=== PATIENT | male | born 1955 ===

== ENCOUNTER → 2020-06-01 08:58 | Outpatient (BNVA) | payer OTHER, SELFPAY | PROVIDERS: PCP Internal Medicine; Referring Provider Internal Medicine; Visit Provider Nurse Practitioner Family | DX: Z76.89 Persons encountering health services in other specified circumstances (principal) ==

== ENCOUNTER 2020-06-07 09:03 | Emergency (ER) | payer OTHER, SELFPAY ==
[2020-06-07 09:21] VITALS: BP 148/71; PULSE 60; RESP 22; TEMP 37.1; O2SAT 98; BMI 27.9
--- NOTE | 2020-06-07 09:42 | ED_ITS ---
HPI - Wound/Laceration General Chief Complaint: Wound/Laceration Stated Complaint: scab on arm,sob,dizzy Time Seen by Provider: 06/07/20 09:42 History of Present Illness HPI narrative: patient presents to ED for for left forearm wound with slight erythema around area. Patient does not recall any blunt trauma to the area. Patient denies any recent hiking. Patient denies any fever, chills, pain, pus discharge, foul odor, any recent hiking. Patient denies any insect bite. Patient has secondary complaint chronic shortness of breath and chronic dizziness as per triage nurse. Patient does states history of vertigo. Patient presently denies any shortness of breath or vertigo. Patient denies ever having Chest pain. Patient statess he said the symptoms because nurse asked him if he had any of those symptoms. Patient states they are are chronic and did not come to the ED for SOB and dizziness.. Extremity Location: left: forearm Related Data Previous Rx's Medication Instructions Recorded clindamycin HCl 300 mg PO Q8H #30 cap 06/07/20 Allergies Allergy/AdvReac Type Severity Reaction Status Date / Time Penicillins Allergy Mild RASH Unverified 05/13/20 17:33 ciprofloxacin [From Cipro] Allergy Unknown RASH Unverified 05/13/20 17:33 penicillin V Allergy Unknown Verified 04/20/20 00:00 Review of Systems Review of Systems: Yes all other systems are reviewed and are negative Constitutional: Constitutional: Reports no additional constitutional complaints Eyes: Eyes: Reports as per HPI and Reports no additional eye complaints ENT: Reports system reviewed and no additional complaints, except as documented and Reports as per HPI Cardiovascular: Cardiovascular: Reports as per HPI, Reports no additional cardiovascular complaints, Denies chest pain, Denies chest pain at rest, Denies chest pain with activity, Denies dyspnea, Denies dyspnea on exertion, Denies orthopnea and Denies paroxysmal nocturnal dyspnea Respiratory: Respiratory: Reports as per HPI, Reports no additional respirato ry complaints, Denies dyspnea and Denies dyspnea on exertion Gastrointestinal: Gastrointestinal: Reports as per HPI and Reports no additional gastrointestinal complaints Musculoskeletal: Musculoskeletal: Reports no additional musculoskeletal complaints, Reports as per HPI, Denies joint swelling, Denies limited range of motion and Denies loss of height Neurologic: Reports system reviewed and no additional complaints, except as documented and Reports as per HPI Psychiatric: Psychiatric: Reports no additional psychiatric complaints and Reports as per HPI FORMERLY [facility], [facility] Past Medical History Medical History (Updated 06/07/20 @ 11:13 by CAITY Marino) Arthritis COPD (chronic obstructive pulmonary disease) Coronary artery disease Diabetes mellitus, type 2 Dizziness Peripheral vascular disease Surgical History (Updated 06/07/20 @ 09:26 by Titus Odell) H/O coronary artery bypass surgery Social History Social History Alcohol intake: former Smoking Status: Light tobacco smoker Smoked in Last 30 Days: No Use of substances other than those prescribed or required for medical reasons: Unknown Advance Directives: No Advance Directives Information Provided: No Physical Exam Vital Signs: Vital Signs: Vital Signs Temp Pulse Resp BP Pulse Ox 06/07/20 11:52 66 18 06/07/20 09:21 98.8 F 60 22 H 148/71 H 98 Body Mass Index 27.9 Const: General: cooperative, healthy appearing, comfortable and no acute distress Orientation/consciousness: patient oriented x3 HENMT: Head: Yes normal to inspection and Yes No palpable skull fracture present Eyes: General: appearance normal, both eyes and all related structures Neck: Neck: Yes normal visual inspection, Yes full ROM, Yes no lymphadenopathy, Yes no meningeal signs, No positive Brudzinski's sign, No positive Kernig's sign and Yes no JVD Chest: Chest palpation & inspection: normal inspection of the chest and normal palpation of entire chest wall Resp: Effort & Inspection: normal respiratory effort, able to speak in complete sentences, normal respiratory pattern, no audible wheezes, no cough, no grunting, no paradoxical thoraco-abdom movements, no pursed lip breathing, no respiratory distress, no retractions and no use of accessory muscles Auscultation: clear to auscultation bilaterally Cardio: Jugular venous distension: no JVD Rate: regular rate Heart sounds: S1 normal heart sound present and S2 normal heart sound present GI: Inspection: Yes normal to inspection and No Kehr's sign positive Palpation (GI): not firm, nontender, no guarding and not rigid Percussion: Yes normal to percussion : General: No CVA tenderness and Yes no CVA tenderness Back/Spine/Pelvis: Back: no CVA tenderness, No CVA tenderness, No back tenderness and No Callahan-Polk sign present Skin: Other: Left forearm positive for small area of erythema surrounding wound that is dry and negative any active pus discharge or foul odor. Negative for any tenderness on palpation. Negative for any erythema migrans or bull's eye sign General skin exam: erythema Neuro: Other: negative for nystagmus General: patient oriented x3, gait normal, no meningeal signs and CN's II-XI intact bilaterally Cranial nerves: Yes CN's II-XII intact bilaterally Cognition (Neuro): normal cognition Extrem: Other: left forearm positive for small area of erythema around dry wound does negative for any pus discharge foul odor, erythema tenderess. Negative for red streaks to indicate lymphangitis. Negative any fluctuance mass to indicate abscess. General: Yes normal to inspection Psych: Appearance: grossly normal and well kempt Mental Status: mental status grossly normal Course Course Course Narrative: Patient presently denies any chest pain shortness of breath or dizziness. But because documented in chart by triage nurse and patient diabetic will have baseline EKG and labs including troponin. Patient also be sent for chest x-ray to rule out pneumonia. Presently history physical exam does not indicate PE. D-dimer not indicated. Vital signs are stable. Patient is not hypoxic. Patient denies any chest pain on inspiration. Patient is not tachy. Patient denies any recent surgery, trauma, or any oral estrogen use. Patient will have x-ray of forearm to make sure there is no osteomyelitis although very unlikely. Reevaluation(s) Reevaluation #1: Labs for patients came back normal. Troponin is negative. Chest x-ray is normal. Forearm x-ray negative for any osteomyelitis. Patient will be treated as slight wound infections, cellulitis. Time: 11:07 MDM - Wound/Laceration MDM Narrative Medical decision making narrative: Patient will be discharged with clindamycin due to allergic reaction to Keflex. Patient informed to follow-up with PCP. Patient not having cardiac or pulmonary event. no EKG changes Lab Data Result diagrams: 06/07/20 10:06 06/07/20 10:05 Labs: Lab Results 06/07/20 06/07/20 06/07/20 Range/Units 10:05 10:06 10:06 WBC 6.5 (4.8-10.8) X10*3/uL RBC 4.66 (4.60-5.80) X10*6/uL Hgb 15.0 (14.0-18.0) g/dl Hct 44.6 (42-52) % MCV 95.7 (80-98) fL MCH 32.2 (27.0-33.0) pg MCHC 33.6 (31.0-36.0) g/dl RDW 12.4 (11.0-16.0) % Plt Count 174 (160-400) X10*3/uL MPV 10.3 (9.4-12.4) fL Immature Gran % (Auto) 0.3 (0.0-0.4) % Neut % (Auto) 71.1 (45-73) % Lymph % (Auto) 18.1 L (20-40) % Rhea % (Auto) 8.2 (2-11) % Eos % (Auto) 2.0 (0-4) % Baso % (Auto) 0.3 (0-2) % Lymph # (Auto) 1.2 (1.2-4.9) X10*3/uL Rhea # (Auto) 0.5 (0.1-1.2) X10*3/uL Eos # (Auto) 0.1 (0.0-0.4) X10*3/uL Baso # (Auto) 0.0 (0.0-0.2) X10*3/uL Abs Immat Gran (auto) 0.02 (0.00-0.03) X10*3/uL Absolute Neuts (auto) 4.6 (2.0-8.3) X10*3/uL Absolute Nucleated RBC 0.000 (0.0-0.012) X10*3/uL Nucleated RBC % (auto) 0.0 (0.0-0.2) /100WBC PT 11.7 (10.8-13.0) SEC INR 1.0 (0.9-1.1) APTT 35.9 (24.1-38.0) SEC Sodium 140 (135-145) mmol/L Potassium 4.4 (3.3-5.1) mmol/l Chloride 106 (96-108) mmol/L Carbon Dioxide 25 (22-29) mmol/L Anion Gap 13 (12-20) BUN 17 H (9-16) mg/dL Creatinine 1.09 (0.5-1.4) mg/dL Estim Creat Clear Calc 66.5 Estimated GFR > 60 Random Glucose 160 H (60-115) mg/dL Calcium 9.2 (8.4-10.2) mg/dL Total Bilirubin 0.7 (0.0-1.0) mg/dL AST 26 (5-37) U/L ALT 24 (0-40) U/L Alkaline Phosphatase 111 (39-117) U/L Troponin I High Sens (<3.5-35.0) ng/L B-Natriuretic Peptide (<100) pg/mL Total Protein 6.9 (6.5-8.0) g/dL Albumin 4.5 (3.5-5.0) g/dL 06/07/20 Range/Units 10:06 WBC (4.8-10.8) X10*3/uL RBC (4.60-5.80) X10*6/uL Hgb (14.0-18.0) g/dl Hct (42-52) % MCV (80-98) fL MCH (27.0-33.0) pg MCHC (31.0-36.0) g/dl RDW (11.0-16.0) % Plt Count (160-400) X10*3/uL MPV (9.4-12.4) fL Immature Gran % (Auto) (0.0-0.4) % Neut % (Auto) (45-73) % Lymph % (Auto) (20-40) % Rhea % (Auto) (2-11) % Eos % (Auto) (0-4) % Baso % (Auto) (0-2) % Lymph # (Auto) (1.2-4.9) X10*3/uL Rhea # (Auto) (0.1-1.2) X10*3/uL Eos # (Auto) (0.0-0.4) X10*3/uL Baso # (Auto) (0.0-0.2) X10*3/uL Abs Immat Gran (auto) (0.00-0.03) X10*3/uL Absolute Neuts (auto) (2.0-8.3) X10*3/uL Absolute Nucleated RBC (0.0-0.012) X10*3/uL Nucleated RBC % (auto) (0.0-0.2) /100WBC PT (10.8-13.0) SEC INR (0.9-1.1) APTT (24.1-38.0) SEC Sodium (135-145) mmol/L Potassium (3.3-5.1) mmol/l Chloride (96-108) mmol/L Carbon Dioxide (22-29) mmol/L Anion Gap (12-20) BUN (9-16) mg/dL Creatinine (0.5-1.4) mg/dL Estim Creat Clear Calc Estimated GFR Random Glucose (60-115) mg/dL Calcium (8.4-10.2) mg/dL Total Bilirubin (0.0-1.0) mg/dL AST (5-37) U/L ALT (0-40) U/L Alkaline Phosphatase (39-117) U/L Troponin I High Sens < 3.5 (<3.5-35.0) ng/L B-Natriuretic Peptide 73 (<100) pg/mL Total Protein (6.5-8.0) g/dL Albumin (3.5-5.0) g/dL ECG Data Interpretation: Sinus bradycardia, ventricular rate 56, nonspecific T-wave abnormality, IA interval 154 Discharge Plan Discharge Clinical Impression: Wound cellulitis Patient Disposition: Home, Self-Care Instructions: Wound Infection (ED), Cellulitis (ED) Additional Instructions: return to the ED for any swelling of upper extremity,, development of red streaks, chest pain, shortness of breath, pus discharge, foul odor, pain, fever, chills, or any other concerning symptoms. Prescriptions: New clindamycin HCl 300 mg capsule 300 mg PO Q8H Qty: 30 RF: 0 Referrals: Susie Park MD [Primary Care Provider] - 2 days ( Left wound cellulitis. Negative for any osteomyelitis. Discharge with antibiotics) Interventions: ED Discharge Assessment Last Done: 06/07/20 11:45 Discharge Date/Time: 06/07/20 11:58 Print Language: Telugu
--- NOTE | 2020-06-07 09:45 | XR_ITS ---
EXAMINATION: XR CHEST CLINICAL INFORMATION: Chronic shortness of breath COMPARISON: Chest radiograph 04/23/2020 TECHNIQUE: Portable upright AP view of the chest was obtained. FINDINGS: The lungs are clear. The vascularity is normal. There is no airspace consolidation, vascular congestion, or effusion. Tapering at the cardiophrenic angles is similar to prior exam and consistent with areolar tissue. There are surgical clips and sternotomy wires again noted. The heart is normal in size. The hilar and mediastinal contours are unremarkable. No visible acute bony abnormality. IMPRESSION: No acute intrathoracic disease.
--- NOTE | 2020-06-07 09:45 | ECG_ITS ---
Test Reason : SOB Blood Pressure : / mmHG Vent. Rate : 056 BPM Atrial Rate : 056 BPM P-R Int : 154 ms QRS Dur : 092 ms QT Int : 452 ms P-R-T Axes : 072 039 059 degrees QTc Int : 436 ms Sinus bradycardia Nonspecific T wave abnormality Abnormal ECG When compared with ECG of 23-APR-2020 11:12, No significant change was found Referred By: Deric Soares Electronically Signed By:PAM BENEDICT MD
[2020-06-07 10:10] LABS: MANUAL DIFF FLAG NO
--- NOTE | 2020-06-07 10:13 | XR_ITS ---
EXAMINATION: XR FOREARM, LEFT CLINICAL INFORMATION: Wound, possible osteomyelitis. COMPARISON: None TECHNIQUE: AP and lateral views of the left forearm were obtained. FINDINGS: Bony mineralization is normal. There is no focal demineralization or periostitis or destructive process. There is no acute or healing fracture or dislocation. There is no gas seen tracking in the soft tissues. Some mild spurring is noted at the coronoid process and borderline spur olecranon. There is no joint narrowing or erosive change. IMPRESSION: 1. No focal bony destructive process. No periostitis. No gas tracking in soft tissues. 2. No fracture. Bony mineralization normal. No joint narrowing or erosive change.
[2020-06-07 10:15] LABS: Basophils Percent Auto 0.3 % (0-2); Eosinophils Absolute Auto 0.1 X10*3/uL (0.0-0.4); Hematocrit 44.6 % (42-52); Imm Gran Abs Auto 0.02 X10*3/uL (0.00-0.03); Imm Gran Pct Auto 0.3 % (0.0-0.4); Lymphocytes Absolute Auto 1.2 X10*3/uL (1.2-4.9); Lymphocytes Percent Auto 18.1 % (20-40); Mean Corpuscular HGB Conc 33.6 g/dl (31.0-36.0); Mean Corpuscular Hemoglobin 32.2 pg (27.0-33.0); Mean Corpuscular Volume 95.7 fL (80-98); Mean Platelet Volume 10.3 fL (9.4-12.4); Monocytes Absolute Auto 0.5 X10*3/uL (0.1-1.2); Monocytes Percent Auto 8.2 % (2-11); Neutrophils Absolute Auto 4.6 X10*3/uL (2.0-8.3); Neutrophils Percent Auto 71.1 % (45-73); Platelet Count 174 X10*3/uL (160-400); Red Blood Count 4.66 X10*6/uL (4.60-5.80); Red Cell Distribution Width 12.4 % (11.0-16.0); White Blood Count 6.5 X10*3/uL (4.8-10.8)
[2020-06-07 10:27] LABS: Prothrombin Time 11.7 SEC (10.8-13.0)
[2020-06-07 10:29] LABS: Partial Thromboplastin Time 35.9 SEC (24.1-38.0)
[2020-06-07 10:42] LABS: Alanine Aminotransferase 24 U/L (0-40); Albumin Level 4.5 g/dL (3.5-5.0); Alkaline Phosphatase 111 U/L (39-117); Anion Gap 13 (12-20); Aspartate Amino Transferase 26 U/L (5-37); Bilirubin Total 0.7 mg/dL (0.0-1.0); Blood Urea Nitrogen 17 mg/dL (9-16); Calcium 9.2 mg/dL (8.4-10.2); Carbon Dioxide 25 mmol/L (22-29); Chloride 106 mmol/L (96-108); Creatinine Clr Calc Pharmacy 66.5; Estimated Glomerular Filt Rate > 60; Glucose Random 160 mg/dL (60-115); Potassium 4.4 mmol/l (3.3-5.1); Sodium 140 mmol/L (135-145); Total Protein 6.9 g/dL (6.5-8.0)
[2020-06-07 10:45] LABS: B Type Natriuretic Peptide 73 pg/mL (<100); Troponin-I High Sensitivity < 3.5 ng/L (<3.5-35.0)
[2020-06-07 11:52] VITALS: PULSE 66; RESP 18
== END 2020-06-07 11:58 | disposition home or self-care (01) ==
PROVIDERS: Physician Assistant; Emergency Provider Emergency Medicine; PCP Internal Medicine
DX: L03.114 Cellulitis of left upper limb (principal); E11.9 Type 2 diabetes mellitus without complications; F17.219 Nicotine dependence, cigarettes, with unspecified nicotine-induced disorders
CPT/HCPCS: 36415; 71045; 73090; 80053; 83880; 84484; 85025; 85610; 85730; 93005; 99284

== ENCOUNTER → 2020-06-23 09:32 | Outpatient (BNVA) | payer OTHER, SELFPAY | PROVIDERS: PCP Internal Medicine; Referring Provider Internal Medicine; Visit Provider Nurse Practitioner Family | DX: I25.118 Atherosclerotic heart disease of native coronary artery with other forms of angina pectoris (principal); E78.5 Hyperlipidemia, unspecified; I10 Essential (primary) hypertension; Z95.1 Presence of aortocoronary bypass graft; Z95.5 Presence of coronary angioplasty implant and graft | CPT/HCPCS: 93005; 99212 ==

== ENCOUNTER 2020-09-21 15:00 | Emergency (ER) | payer OTHER, SELFPAY ==
[2020-09-21 15:08] VITALS: BP 110/68; PULSE 67; RESP 15; TEMP 36.8; O2SAT 96; BMI 28.8
--- NOTE | 2020-09-21 15:35 | ECG_ITS ---
Test Reason : CHEST PAIN Blood Pressure : / mmHG Vent. Rate : 066 BPM Atrial Rate : 066 BPM P-R Int : 152 ms QRS Dur : 094 ms QT Int : 402 ms P-R-T Axes : 050 004 -09 degrees QTc Int : 421 ms Normal sinus rhythm Inferior infarct , age undetermined Nonspecific T wave changes Abnormal ECG When compared with ECG of 07-JUN-2020 10:27, Inferior infarct is now Present Referred By: Chasidy Knutson Electronically Signed By:Johnson Dutton
--- NOTE | 2020-09-21 15:35 | CT_ITS ---
EXAMINATION: CT HEAD WITHOUT CONTRAST CLINICAL INFORMATION: Altered mental status. COMPARISON: April 23, 2020. TECHNIQUE: Contiguous helical images of the brain were obtained without IV contrast. Multiplanar reconstructions were performed. DLP: 656 mGy-cm. FINDINGS: There are no pathologic extra-axial fluid collections. The lateral, third, fourth ventricles are nondilated and concordant with the appearance of the sulci. There is no evidence for acute intraparenchymal hemorrhage or infarct. There is neither mass nor mass effect. There is no shift of midline structures. The paranasal sinuses and mastoid air cells are clear. There are no osseous lesions. CT/CT head/brain wo con IMPRESSION: No evidence for acute intracranial injury. Automated exposure control (Care Dose) Adjustment of the mA and/or kv according to patient size (this includes techniques or standardized protocols for targeted exams where dose is matched to indication / reason for exam; i.e. extremities or head).
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
--- NOTE | 2020-09-21 15:36 | XR_ITS ---
EXAMINATION: XR CHEST CLINICAL INFORMATION: Cough COMPARISON: 06/07/2020 TECHNIQUE: Frontal view of the chest was obtained. FINDINGS: Median sternotomy wires appear intact. Cardiac leads overlie the chest. The lungs are well expanded. Bronchial wall thickening noted. No dense consolidation. No edema or effusion. No pneumothorax. The cardiomediastinal silhouette is normal in size. XR/XR chest 1V IMPRESSION: No consolidation. Bronchial wall thickening can be seen with a small airways process such as asthma or atypical/viral infection.
--- NOTE | 2020-09-21 15:37 | ED_ITS ---
HPI - General Adult General Chief complaint: General Medical Stated complaint: CP,GILLESPIE,WEAKNESS Time Seen by Provider: 09/21/20 15:25 Source: EMS Mode of arrival: EMS History of Present Illness HPI narrative: 65-year-old male with a past medical history of angina, arthritis, COPD, CAD, DM, HLD, HTN, PVD, BIBA complaining of chest pain, worse pierre SOB, generalized fatigue/weakness, and dry since yesterday. History obtained from daughter Anushka at [phone], due to patient's acute AMS, per daughter patient was complaining of headache, recently diagnosed with migraines and started a new migraine medication, saw therapist today who recommended patient go to ED due to sx. Daughter states patient went home after appointment and then requested ambulance. Per daughter patient has drug abuse history but has been sober x3 years. Daughter believes patient took 2 Rx Klonopin before getting in ambulance, states is acting normally prior to EMS arrival. Onset (ago): day(s) Related Data Home Medications Medication Instructions Recorded Confirmed acarbose 50 mg tablet 50 mg PO BID tab 06/23/20 06/23/20 albuterol sulfate 90 mcg/actuation 2 puff INHALATION Q6H PRN 06/23/20 06/23/20 aerosol inhaler aspirin 81 mg tablet,delayed 81 mg PO DAILY 06/23/20 06/23/20 release atorvastatin 80 mg tablet 80 mg PO DAILY 06/23/20 06/23/20 chlorpromazine 100 mg tablet 100 mg PO BID tab 06/23/20 06/23/20 clonazepam 1 mg tablet 1 mg PO DAILY 06/23/20 06/23/20 ezetimibe 10 mg tablet 10 mg PO DAILY 06/23/20 06/23/20 fluticasone 250 mcg-salmeterol 50 1 inh INHALATION BID 06/23/20 06/23/20 mcg/dose blistr powdr for inhalation insulin glargine 100 unit/mL (3 10 unit SUBCUT QPM 06/23/20 06/23/20 mL) subcutaneous pen loratadine 10 mg tablet 10 mg PO DAILY 06/23/20 06/23/20 methocarbamol 500 mg tablet 750 mg PO .EVERY 4 HOURS tab 06/23/20 06/23/20 metoprolol tartrate 50 mg tablet 50 mg PO BID 06/23/20 06/23/20 multivitamin with minerals-folic tab PO 06/23/20 06/23/20 acid 0.4 mg tablet nicotine 21 mg/24 hr daily 1 patch TRANSDERMAL DAILY 06/23/20 06/23/20 transdermal patch pantoprazole 40 mg tablet,delayed 40 mg PO DAILY 06/23/20 06/23/20 release ranolazine 500 mg tablet,extended 500 mg PO BID 06/23/20 06/23/20 release,12 hr sennosides 8.6 mg tablet 8.6 mg PO BEDTIME 06/23/20 06/23/20 tamsulosin 0.4 mg capsule 0.4 mg PO DAILY 06/23/20 06/23/20 tiotropium bromide 18 mcg capsule 1 cap INHALATION DAILY 06/23/20 06/23/20 with inhalation device trifluoperazine 2 mg tablet 2 mg PO DAILY 06/23/20 06/23/20 Previous Rx's Medication Instructions Recorded clindamycin HCl 300 mg PO Q8H #30 cap 06/07/20 isosorbide mononitrate 120 mg 120 mg PO QAM #30 tab 08/23/20 tablet,extended release 24 hr ticagrelor 90 mg tablet 90 mg PO BID #60 tab 08/23/20 Allergies Allergy/AdvReac Type Severity Reaction Status Date / Time Penicillins Allergy Mild RASH Unverified 05/13/20 17:33 ciprofloxacin [From Cipro] Allergy Unknown RASH Unverified 05/13/20 17:33 penicillin V Allergy Unknown Verified 04/20/20 00:00 Review of Systems Review of Systems: Cardiovascular: + Chest Pain, +SOB Respiratory: +Cough Gastrointestinal: + Nausea Neuro: +Headache ROS limited due to patient's AMS Yes all other systems are reviewed and are negative [facility] Past Medical History Medical History (Updated 09/21/20 @ 16:41 by CAITY Fuentes) Angina of effort Arthritis COPD (chronic obstructive pulmonary disease) Coronary artery disease Diabetes mellitus, type 2 Dizziness HLD (hyperlipidemia) HTN (hypertension) Peripheral vascular disease Surgical History (Updated 06/23/20 @ 11:02 by HUNTER Christensen) H/O coronary artery bypass surgery S/P CABG x 3 (~09/2018) S/P cardiac cath (~08/2019) S/P cardiac cath (~04/2020) Stented coronary artery Social History Social History Alcohol intake: former Smoking Status: Current every day smoker Packs Per Day: 0.5 Use of substances other than those prescribed or required for medical reasons: No Advance Directives: No Advance Directives Information Provided: No Physical Exam Vital Signs: Vital Signs: Last Vital Signs Temp 98.3 F 09/21/20 15:53 Pulse 62 09/21/20 15:53 Resp 21 H 09/21/20 15:53 BP 106/62 09/21/20 15:53 Pulse Ox 97 09/21/20 15:53 Body Mass Index 28.8 Const: General: no acute distress Orientation/consciousness: oriented to person Limitations: no limitations HENMT: Other: + small abrasion noted to left cheek Head: Yes normal to inspection Ears: hearing grossly normal bilaterally General nose exam: Normal external nose present Face and sinus: Yes normal facial exam Mouth: mucous membranes dry Throat: Yes posterior oropharynx normal Eyes: General: appearance normal, both eyes and all related structures Pupils: Equal, round and reactive pupils present EOM: EOMs intact bilaterally Neck: Neck: Yes normal visual inspection and Yes no meningeal signs Resp: Effort & Inspection: normal respiratory effort Auscultation: clear to auscultation bilaterally and no wheezes Cardio: Rate: regular rate Heart sounds: S1 normal heart sound present and S2 normal heart sound present GI: Inspection: Yes normal to inspection Palpation (GI): Soft to palpation, nontender, no guarding and not rigid Skin: Rashes: no rashes Wounds: no wounds Neuro: Other: Lethargic/under the influence, A&O x1, alert to voice, intermittently answering questions/following commands General: oriented to person, tone normal, moves all extremities, no meningeal signs, no focal motor deficits and CN's II-XI intact bilaterally Cranial nerves: Yes Equal, round and reactive pupils present Motor exam (neuro): 5/5 motor strength present throughout and Pronator motor function not present Coordination: [id number] test normal Extrem: General: Yes normal to inspection and Yes no pedal edema Course Course Course Narrative: * Head CT unremarkable. CXR without consolidation. Bronchial wall thickening which can be seen with small airway process such as asthma or atypical/viral infection. > azithromycin ordered -1700-- ED care transferred to [facility] Alexander pending labs, and repeat troponin, and re-evaluation. Dispo per results Medical Decision Making MDM Narrative Medical decision making narrative: 65-year-old male with a past medical history of angina, arthritis, COPD, CAD, DM, HLD, HTN, PVD, BIBA complaining of chest pain, worsening SOB, generalized fatigue/weakness, and dry since yesterday. History obtained from daughter Anushka at [phone], due to patient's acute AMS. On exam VSS, altered/appears under the influence, no focal deficits, A&O x1. Concern for substance abuse/ETOH vs ACS vs viral syndrome/COVID-19. Rule out metabolic/infectious etiology. Low concern for severe sepsis Plan: EKG, labs, UA, CXR, head CT, drug screen, re-evaluate Lab Data Result diagrams: 09/21/20 16:20 09/21/20 16:10 Labs: Lab Results 09/21/20 09/21/20 09/21/20 Range/Units 16:10 16:10 16:10 WBC (4.8-10.8) X10*3/uL RBC (4.60-5.80) X10*6/uL Hgb (14.0-18.0) g/dl Hct (42-52) % MCV (80-98) fL MCH (27.0-33.0) pg MCHC (31.0-36.0) g/dl RDW (11.0-16.0) % Plt Count (160-400) X10*3/uL MPV (9.4-12.4) fL Immature Gran % (Auto) (0.0-0.4) % Neut % (Auto) (45-73) % Lymph % (Auto) (20-40) % [place] % (Auto) (2-11) % Eos % (Auto) (0-4) % Baso % (Auto) (0-2) % Lymph # (Auto) (1.2-4.9) X10*3/uL [place] # (Auto) (0.1-1.2) X10*3/uL Eos # (Auto) (0.0-0.4) X10*3/uL Baso # (Auto) (0.0-0.2) X10*3/uL Abs Immat Gran (auto) (0.00-0.03) X10*3/uL Absolute Neuts (auto) (2.0-8.3) X10*3/uL Absolute Nucleated RBC (0.0-0.012) X10*3/uL Nucleated RBC % (auto) (0.0-0.2) /100WBC PT (10.8-13.0) SEC INR (0.9-1.1) APTT (24.1-38.0) SEC Sodium 139 (135-145) mmol/L Potassium 3.9 (3.3-5.1) mmol/l Chloride 109 H (96-108) mmol/L Carbon Dioxide 22 (22-29) mmol/L Anion Gap 12 (12-20) BUN 12 (9-16) mg/dL Creatinine 0.84 (0.5-1.4) mg/dL Estim Creat Clear Calc 87.6 Estimated GFR > 60 Random Glucose 112 (60-115) mg/dL Calcium 8.5 D (8.4-10.2) mg/dL Magnesium 1.9 (1.6-2.6) mg/dL Total Bilirubin 0.4 (0.0-1.0) mg/dL Direct Bilirubin 0.2 (0.0-0.5) mg/dL AST 18 (5-37) U/L ALT 16 (0-40) U/L Alkaline Phosphatase 106 (39-117) U/L Ammonia 48 (13-55) umol/L Lactate Dehydrogenase 160 (118-273) U/L Troponin I High Sens (<3.5-35.0) ng/L Total Protein 6.1 L (6.5-8.0) g/dL Albumin 3.9 (3.5-5.0) g/dL Lipase (8-78) U/L Ethyl Alcohol < 10 mg/dL 09/21/20 09/21/20 09/21/20 Range/Units 16:10 16:10 16:10 WBC (4.8-10.8) X10*3/uL RBC (4.60-5.80) X10*6/uL Hgb (14.0-18.0) g/dl Hct (42-52) % MCV (80-98) fL MCH (27.0-33.0) pg MCHC (31.0-36.0) g/dl RDW (11.0-16.0) % Plt Count (160-400) X10*3/uL MPV (9.4-12.4) fL Immature Gran % (Auto) (0.0-0.4) % Neut % (Auto) (45-73) % Lymph % (Auto) (20-40) % [place] % (Auto) (2-11) % Eos % (Auto) (0-4) % Baso % (Auto) (0-2) % Lymph # (Auto) (1.2-4.9) X10*3/uL [place] # (Auto) (0.1-1.2) X10*3/uL Eos # (Auto) (0.0-0.4) X10*3/uL Baso # (Auto) (0.0-0.2) X10*3/uL Abs Immat Gran (auto) (0.00-0.03) X10*3/uL Absolute Neuts (auto) (2.0-8.3) X10*3/uL Absolute Nucleated RBC (0.0-0.012) X10*3/uL Nucleated RBC % (auto) (0.0-0.2) /100WBC PT 12.0 (10.8-13.0) SEC INR 1.0 (0.9-1.1) APTT 33.3 (24.1-38.0) SEC Sodium (135-145) mmol/L Potassium (3.3-5.1) mmol/l Chloride (96-108) mmol/L Carbon Dioxide (22-29) mmol/L Anion Gap (12-20) BUN (9-16) mg/dL Creatinine (0.5-1.4) mg/dL Estim Creat Clear Calc Estimated GFR Random Glucose (60-115) mg/dL Calcium (8.4-10.2) mg/dL Magnesium (1.6-2.6) mg/dL Total Bilirubin (0.0-1.0) mg/dL Direct Bilirubin (0.0-0.5) mg/dL AST (5-37) U/L ALT (0-40) U/L Alkaline Phosphatase (39-117) U/L Ammonia (13-55) umol/L Lactate Dehydrogenase (118-273) U/L Troponin I High Sens < 3.5 (<3.5-35.0) ng/L Total Protein (6.5-8.0) g/dL Albumin (3.5-5.0) g/dL Lipase 12 (8-78) U/L Ethyl Alcohol mg/dL 09/21/20 Range/Units 16:20 WBC 6.1 (4.8-10.8) X10*3/uL RBC 4.31 L (4.60-5.80) X10*6/uL Hgb 14.2 (14.0-18.0) g/dl Hct 40.7 L (42-52) % MCV 94.4 (80-98) fL MCH 32.9 (27.0-33.0) pg MCHC 34.9 (31.0-36.0) g/dl RDW 11.9 (11.0-16.0) % Plt Count 167 (160-400) X10*3/uL MPV 10.5 (9.4-12.4) fL Immature Gran % (Auto) 0.3 (0.0-0.4) % Neut % (Auto) 61.8 (45-73) % Lymph % (Auto) 23.4 (20-40) % [place] % (Auto) 12.4 H (2-11) % Eos % (Auto) 1.8 (0-4) % Baso % (Auto) 0.3 (0-2) % Lymph # (Auto) 1.4 (1.2-4.9) X10*3/uL [place] # (Auto) 0.8 (0.1-1.2) X10*3/uL Eos # (Auto) 0.1 (0.0-0.4) X10*3/uL Baso # (Auto) 0.0 (0.0-0.2) X10*3/uL Abs Immat Gran (auto) 0.02 (0.00-0.03) X10*3/uL Absolute Neuts (auto) 3.8 (2.0-8.3) X10*3/uL Absolute Nucleated RBC 0.000 (0.0-0.012) X10*3/uL Nucleated RBC % (auto) 0.0 (0.0-0.2) /100WBC PT (10.8-13.0) SEC INR (0.9-1.1) APTT (24.1-38.0) SEC Sodium (135-145) mmol/L Potassium (3.3-5.1) mmol/l Chloride (96-108) mmol/L Carbon Dioxide (22-29) mmol/L Anion Gap (12-20) BUN (9-16) mg/dL Creatinine (0.5-1.4) mg/dL Estim Creat Clear Calc Estimated GFR Random Glucose (60-115) mg/dL Calcium (8.4-10.2) mg/dL Magnesium (1.6-2.6) mg/dL Total Bilirubin (0.0-1.0) mg/dL Direct Bilirubin (0.0-0.5) mg/dL AST (5-37) U/L ALT (0-40) U/L Alkaline Phosphatase (39-117) U/L Ammonia (13-55) umol/L Lactate Dehydrogenase (118-273) U/L Troponin I High Sens (<3.5-35.0) ng/L Total Protein (6.5-8.0) g/dL Albumin (3.5-5.0) g/dL Lipase (8-78) U/L Ethyl Alcohol mg/dL Discharge Plan Discharge Clinical Impression: Viral syndrome Prescriptions: No Action ticagrelor [Brilinta] 90 mg tablet 90 mg PO BID Qty: 60 RF: 5 isosorbide mononitrate 120 mg tablet extended release 24 hr 120 mg PO QAM Qty: 30 RF: 5 clindamycin HCl 300 mg capsule 300 mg PO Q8H Qty: 30 RF: 0 metoprolol tartrate 50 mg tablet 50 mg PO BID RF: 0 acarbose 50 mg tablet 50 mg PO BID RF: 0 pantoprazole 40 mg tablet,delayed release (DR/EC) 40 mg PO DAILY RF: 0 loratadine 10 mg tablet 10 mg PO DAILY RF: 0 trifluoperazine 2 mg tablet 2 mg PO DAILY RF: 0 sennosides [senna] 8.6 mg tablet 8.6 mg PO BEDTIME RF: 0 clonazepam 1 mg tablet 1 mg PO DAILY RF: 0 chlorpromazine 100 mg tablet 100 mg PO BID RF: 0 Adult One Daily Multivitamin 0.4 mg tablet PO RF: 0 Lantus Solostar U-100 Insulin 100 unit/mL (3 mL) insulin pen 10 unit subcut QPM RF: 0 fluticasone propion-salmeterol [Advair Diskus] 250-50 mcg/dose blister with device 1 inh inhalation BID RF: 0 tamsulosin [Flomax] 0.4 mg capsule 0.4 mg PO DAILY RF: 0 aspirin [Adult Low Dose Aspirin] 81 mg tablet,delayed release (DR/EC) 81 mg PO DAILY RF: 0 albuterol sulfate [ProAir HFA] 90 mcg/actuation HFA aerosol inhaler 2 puff inhalation Q6H PRNRF: 0 Spiriva with HandiHaler 18 mcg capsule, w/inhalation device 1 cap inhalation DAILY RF: 0 methocarbamol 500 mg tablet 750 mg PO .EVERY 4 HOURS RF: 0 nicotine 21 mg/24 hr patch 24 hour 1 patch transdermal DAILY RF: 0 atorvastatin 80 mg tablet 80 mg PO DAILY RF: 0 ezetimibe [Zetia] 10 mg tablet 10 mg PO DAILY RF: 0 ranolazine [Ranexa] 500 mg tablet extended release 12 hr 500 mg PO BID RF: 0
[2020-09-21 15:53] VITALS: BP 106/62; PULSE 62; RESP 21; TEMP 36.8; O2SAT 97
[2020-09-21] MEDS: 0.9 % Sodium Chloride 1,000 ML 999 ML IVCONT (16:11)
--- NOTE | 2020-09-21 16:11 | PC.NURSE ---
pt not answering all questions appropriately at time of assessment. does not answer to date time or place. appears tired. states that's how he feels. per rn eron, spoke with daughter and ? if patient took extra seroquel today. labs being drawn at this time.
[2020-09-21 16:26] LABS: Partial Thromboplastin Time 33.3 SEC (24.1-38.0)
[2020-09-21 16:26] LABS: Basophils Percent Auto 0.3 % (0-2); Eosinophils Absolute Auto 0.1 X10*3/uL (0.0-0.4); Eosinophils Percent Auto 1.8 % (0-4); Hematocrit 40.7 % (42-52); Hemoglobin 14.2 g/dl (14.0-18.0); Imm Gran Abs Auto 0.02 X10*3/uL (0.00-0.03); Imm Gran Pct Auto 0.3 % (0.0-0.4); Lymphocytes Absolute Auto 1.4 X10*3/uL (1.2-4.9); Lymphocytes Percent Auto 23.4 % (20-40); MANUAL DIFF FLAG NO; Mean Corpuscular HGB Conc 34.9 g/dl (31.0-36.0); Mean Corpuscular Hemoglobin 32.9 pg (27.0-33.0); Mean Corpuscular Volume 94.4 fL (80-98); Mean Platelet Volume 10.5 fL (9.4-12.4); Monocytes Absolute Auto 0.8 X10*3/uL (0.1-1.2); Monocytes Percent Auto 12.4 % (2-11); Neutrophils Absolute Auto 3.8 X10*3/uL (2.0-8.3); Neutrophils Percent Auto 61.8 % (45-73); Platelet Count 167 X10*3/uL (160-400); Red Blood Count 4.31 X10*6/uL (4.60-5.80); Red Cell Distribution Width 11.9 % (11.0-16.0); White Blood Count 6.1 X10*3/uL (4.8-10.8)
[2020-09-21 16:38] LABS: Ethanol < 10 mg/dL
[2020-09-21 16:39] LABS: Ammonia 48 umol/L (13-55)
[2020-09-21 16:43] LABS: Lipase 12 U/L (8-78)
[2020-09-21 16:44] LABS: Alanine Aminotransferase 16 U/L (0-40); Albumin Level 3.9 g/dL (3.5-5.0); Alkaline Phosphatase 106 U/L (39-117); Anion Gap 12 (12-20); Aspartate Amino Transferase 18 U/L (5-37); Bilirubin Direct 0.2 mg/dL (0.0-0.5); Bilirubin Total 0.4 mg/dL (0.0-1.0); Blood Urea Nitrogen 12 mg/dL (9-16); Calcium 8.5 mg/dL (8.4-10.2); Carbon Dioxide 22 mmol/L (22-29); Chloride 109 mmol/L (96-108); Creatinine Clr Calc Pharmacy 87.6; Estimated Glomerular Filt Rate > 60; Glucose Random 112 mg/dL (60-115); Lactate Dehydrogenase 160 U/L (118-273); Magnesium 1.9 mg/dL (1.6-2.6); Potassium 3.9 mmol/l (3.3-5.1); Sodium 139 mmol/L (135-145); Total Protein 6.1 g/dL (6.5-8.0)
[2020-09-21 16:45] LABS: Troponin-I High Sensitivity < 3.5 ng/L (<3.5-35.0)
[2020-09-21 16:55] LABS: Acetaminophen LAB < 1 mcg/mL (<30); Salicylate < 5.0 mg/dL (15-30)
[2020-09-21 16:59] LABS: Procalcitonin < 0.02 ng/mL
[2020-09-21 17:01] LABS: Influenza A PCR NEGATIVE (Negative); Influenza B PCR NEGATIVE (Negative); Resp Syncy Virus RNA Qual PCR NEGATIVE (Negative); SARS COV2 PCR INHOUSE NEGATIVE (Negative)
[2020-09-21 17:03] LABS: Ferritin 82 ng/mL (20-250)
[2020-09-21 17:24] VITALS: PULSE 57
[2020-09-21] MEDS: Albuterol Sulfate 90 MCG 8 GM INHALER 4 PUFF INHALE (17:24)
[2020-09-21] MEDS: Azithromycin 500 MG TABLET PO (17:36)
--- NOTE | 2020-09-21 17:39 | PC.NURSE ---
pt appears to more awake at this time, answering questions appropriately, states having slight lower abd pain but also states its from being hungry sinus/devin sinus on the monitor 55-58
[2020-09-21 17:46] LABS: Glucose Urine UA NEG (NEG); Leukocyte Esterase Urine NEG (NEG); Nitrite Urine NEG (NEG); Urine Blood NEG (NEG); Urine Ketones NEG (NEG); Urine Protein NEG (NEG-TRACE)
[2020-09-21 17:50] LABS: Appearance Urine CLEAR; Color Urine YELLOW
[2020-09-21 18:18] LABS: Amphetamine Screen Urine Not Detected (Not Detect); Barbiturates, Urine POSITIVE (Not Detect); Benzodiazepines Screen Urine Not Detected (Not Detect); Cannabinoid Screen Urine Not Detected (Not Detect); Cocaine Screen Urine Not Detected (Not Detect); Opiate Screen Urine Not Detected (Not Detect); Phencyclidine Screen Urine Not Detected (Not Detect)
== END 2020-09-21 18:53 | disposition home or self-care (01) ==
PROVIDERS: Physician Assistant; Emergency Provider Emergency Medicine
DX: B34.9 Viral infection, unspecified (principal); Z20.822 Contact with and (suspected) exposure to COVID-19; I10 Essential (primary) hypertension; E11.9 Type 2 diabetes mellitus without complications; F17.210 Nicotine dependence, cigarettes, uncomplicated; J44.9 Chronic obstructive pulmonary disease, unspecified
CPT/HCPCS: 0241U; 36415; 70450; 71045; 80048; 80076; 80307; 80320; 81003; 82140; 82728; 83615; 83690; 83735; 84145; 84484; 85025; 85610; 85730; 93005; 94640; 96360; 99284; G0480

== ENCOUNTER 2020-10-15 13:00 | Outpatient (REF) | payer OTHER, SELFPAY ==
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
== END 2020-10-15 13:01 | disposition home or self-care (01) ==
LOC: HO.SH 13:00
PROVIDERS: Visit Provider Internal Medicine
DX: H90.6 Mixed conductive and sensorineural hearing loss, bilateral (principal); H61.22 Impacted cerumen, left ear
CPT/HCPCS: 92557; 92567

== ENCOUNTER → 2020-10-18 10:02 | Outpatient (BNVA) | payer OTHER, SELFPAY | PROVIDERS: PCP Internal Medicine; Visit Provider Nurse Practitioner Family | DX: I25.118 Atherosclerotic heart disease of native coronary artery with other forms of angina pectoris (principal); I10 Essential (primary) hypertension; E78.5 Hyperlipidemia, unspecified; Z95.5 Presence of coronary angioplasty implant and graft; Z98.890 Other specified postprocedural states; Z95.1 Presence of aortocoronary bypass graft | CPT/HCPCS: 93005; 99212 ==

== ENCOUNTER → 2020-11-22 10:22 | Outpatient (BNVA) | payer OTHER, SELFPAY | PROVIDERS: PCP Internal Medicine; Visit Provider Nurse Practitioner Family | DX: I25.119 Atherosclerotic heart disease of native coronary artery with unspecified angina pectoris (principal); I10 Essential (primary) hypertension; E78.5 Hyperlipidemia, unspecified; F17.200 Nicotine dependence, unspecified, uncomplicated; Z95.5 Presence of coronary angioplasty implant and graft; Z95.1 Presence of aortocoronary bypass graft; Z98.890 Other specified postprocedural states; Z79.899 Other long term (current) drug therapy; Z71.6 Tobacco abuse counseling | CPT/HCPCS: 93005; 99212 ==

== ENCOUNTER → 2020-11-24 13:26 | Outpatient (REF) | payer OTHER, SELFPAY ==
--- NOTE | 2020-11-24 13:29 | CA_ITS ---
Transthoracic Echocardiogram Patient (Last, First, Middle): Elio Calles, Gender: Male Date of : 1955 Age: 65 Procedure Date: 11/24/2020 Procedure Type: Transthoracic Echocardiogram Location: OP Height: 167.64 cm Weight: 82.1 kg BSA: 1.92 m2 Heart Rate: bpm BP: 110 / 60 mmHg Client Support Analyst: VALERIE Gutierrez MD: Miroslava Nam NP-[employer]any [employer] Sales Supervisor: Alex Gaytan MD Symptoms: I25.10 - Atherosclerotic heart disease of [place] coronary artery without angina pectoris Study Quality: Fair ECG Rhythm: Sinus Conclusions: - 1. Normal LV systolic function with wall motion abnormality with impaired relaxation filling pattern 2. Limited evaluation of cardiac valves with normal cardiac valvular Doppler 3. No gross pericardial effusion Findings Left Ventricle Normal left ventricular size, thickness, and systolic function. The visually estimated ejection fraction is between 55-60%. Regional wall motion abnormalities can not be excluded due to suboptimal endocardial definition. Spectral Doppler is indicative of an impaired relaxation filling pattern. E/E prime ratio is between 8 and 15 consistent with indeterminate filling pressures. Wall Motion Rest Echo Findings The mid inferior segment is hypokinetic. The basal inferior and basal inferolateral segments are akinetic. Right Ventricle Normal right ventricular cavity size. Atria The left atrium is normal in size. Interatrial shunt cannot be excluded. The right atrium was not well visualized. Aortic Valve The aortic valve was not well visualized. There is no aortic valve stenosis. There is no aortic valve regurgitation. Mitral Valve Likely normal mitral valve structure and function. There is trace mitral valve regurgitation. There is no mitral valve stenosis. Pulmonic Valve The pulmonic valve was not well visualized. Tricuspid Valve The tricuspid valve was not well visualized. Tricuspid regurgitation envelope is inadequate for calculation of right ventricular systolic pressure. Great Vessels All visible segments of the aorta are normal in size. The pulmonary artery was not well visualized. Venous The inferior vena cava was not well visualized. Pericardium/Pleural There is no evidence of pericardial effusion. Prior Study Comparison Changes noted compared to prior study dated: 07/07/2019. LV systolic function appears to be marginally improved Recommendations, Care & Conclusions Recommend contrast in the future to improve endocardial definition. Measurements 2D Linear Measurements IVSd: 0.96 0.6-0.9/0.6-1.0 cm LVIDd: 4.76 3.9-5.3/4.2-5.9 cm LVIDs: 3.06 2.0-3.6 cm LVPWd: 1.00 0.7-1.1 cm Ao Root: 3.51 2.1-3.5 cm LV Mass: 203.29 67-162/88-224 g LVOT Diam: 1.98 3.0+(-)1.3 cm Mitral Valve MV Pk E: 0.63 MV PK A: 0.77 MV Decel Time: 221.28 E/A: 0.82 E'Lateral: 0.09 E'Medial: 0.06 Decel [place]: 2.86 Aortic Valve AoV Pk Espinoza: 1.42 AoV Mn Espinoza: 1.06 AoV VTI: 0.32 AoV Pk Grad: 8.08 Aov Mn Grad: 4.73 LVOT LVOT Pk Espinoza: 1.04 LVOT Mn Espinoza: 0.63 LVOT VTI: 0.19 LVOT Pk Grad: 4.33 LVOT Mn Grad: 1.93 LVOT Diam: 1.98 LVOT Area: 3.08 Diastolic Function MV Pk E: 0.63 MV Pk A: 0.77 E/A: 0.82 E'Medial: 0.06 E' Laterial: 0.09 Great Vessels Aorta Ao Root-2D: 3.51 2.0-3.7 cm Ao Asc: 3.08 2.1-3.4 cm Ao Arch: 2.56 Updated in Other Vendor System with Status of Final Alex Gaytan MD electronically signed on 11/24/2020 5:18:13 PM with status of Final
== END ==
LOC: HO.CARD 13:26
PROVIDERS: PCP Internal Medicine; Visit Provider Nurse Practitioner Family
DX: R07.89 Other chest pain (principal); I25.10 Atherosclerotic heart disease of native coronary artery without angina pectoris; Z95.1 Presence of aortocoronary bypass graft
CPT/HCPCS: 93306

== ENCOUNTER → 2020-12-14 09:55 | Outpatient (REF) | payer OTHER, SELFPAY ==
--- NOTE | ~2020-12-14 | NM_ITS ---
Lexiscan Myocardial perfusion study Indication: Chest pain, history of coronary disease, CABG, RCA stenting, assess for ischemia Technique: The patient was brought in for a Lexiscan perfusion study on 12/14/2020 and was injected 0.4 mg of Lexiscan intravenously. Within a minute of this injection 25 mCi of sestamibi was given intravenously. Images were obtained using the SPECT gamma camera interlaced with the gating device. Images were obtained in supine position. Resting perfusion study was performed on 12/15/2020. Patient was administered 25 mCi of sestamibi intravenously at rest. Images were then obtained in supine position. Total DLP 79mGy-cm. Images were processed with the software and compared side to side in short axis, horizontal long axis and vertical long axis views. Findings: Raw acquisition was reviewed. The stress perfusion study showed severely diminished tracer uptake in the basal to mid inferior wall. With CT attenuation correction, this is still persistent and hence likely to be a true defect. The gated study shows normal LV systolic function with calculated LVEF of > 70%. LV cavity is normal in size. The gated study shows diminished contractility in the basal to mid inferior wall. Resting study shows markedly diminished tracer uptake in the basal to mid inferior wall. Gating at rest reveals with ejection fraction at 72%. The findings are consistent with mostly fixed inferior wall defect in the basal to mid areas with minimal reversibility. NM/NM eliezer perf SPECT rest & str Impression: 1. Myocardial perfusion imaging study shows mixed ischemia/infarct pattern in the basal to mid inferior wall but mostly infarct and only mild reversible ischemic component. 2. Gated LVEF is > 70% during stress and rest. Basal to mid inferior wall with wall motion abnormality. 3. Transient ischemic dilatation not present. EKG component of the test reported separately.
--- NOTE | 2020-12-14 09:51 | CA_ITS ---
Acquisition Time: 2020-12-14 10:24:55 Total Exercise Time: 00:02:00 Test Indications: Z95.1 Medications: SEE CHART Protocol: LEXISCAN Max HR: 105 BPM 67% of Pred: 155 BPM Max BP: 120/070 mmHG Max Work Load: 1.0 METS Pharmacological stress test using Lexiscan while sitting. Pt tolerated well, denies any anginal sx. Sx of dizziness reversed with Aminophyline 75 mg IV. EKG without arrhythmias, non-diagnostic for ischemia. Nuclear images to follow. Normotensive response to Referred By: Miroslava Nam Overread By: Michelle Esposito NP
== END ==
LOC: HO.CARD 09:55
PROVIDERS: Visit Provider Nurse Practitioner Family
DX: R07.89 Other chest pain (principal); I25.119 Atherosclerotic heart disease of native coronary artery with unspecified angina pectoris; Z95.1 Presence of aortocoronary bypass graft; Z95.5 Presence of coronary angioplasty implant and graft; Z98.890 Other specified postprocedural states
CPT/HCPCS: 78452; 93017; A9500; J0280; J2785

== ENCOUNTER → 2020-12-16 09:20 | Outpatient (BNVA) | payer OTHER, SELFPAY | PROVIDERS: PCP Internal Medicine; Visit Provider Nurse Practitioner Family | DX: I10 Essential (primary) hypertension (principal); E78.5 Hyperlipidemia, unspecified; F17.200 Nicotine dependence, unspecified, uncomplicated; Z98.890 Other specified postprocedural states; Z95.1 Presence of aortocoronary bypass graft; Z95.5 Presence of coronary angioplasty implant and graft; Z79.899 Other long term (current) drug therapy; Z71.6 Tobacco abuse counseling; I25.119 Atherosclerotic heart disease of native coronary artery with unspecified angina pectoris | CPT/HCPCS: 99212 ==

== ENCOUNTER 2020-12-27 10:56 | Outpatient (REF) | payer OTHER, SELFPAY ==
[2020-12-27 11:32] LABS: MANUAL DIFF FLAG NO
[2020-12-27 11:42] LABS: Basophils Percent Auto 0.5 % (0-2); Eosinophils Absolute Auto 0.1 X10*3/uL (0.0-0.4); Eosinophils Percent Auto 2.3 % (0-4); Hematocrit 42.1 % (42-52); Hemoglobin 14.6 g/dl (14.0-18.0); Imm Gran Abs Auto 0.03 X10*3/uL (0.00-0.03); Imm Gran Pct Auto 0.5 % (0.0-0.4); Lymphocytes Absolute Auto 1.4 X10*3/uL (1.2-4.9); Lymphocytes Percent Auto 24.6 % (20-40); Mean Corpuscular HGB Conc 34.7 g/dl (31.0-36.0); Mean Corpuscular Volume 95.2 fL (80-98); Mean Platelet Volume 10.6 fL (9.4-12.4); Monocytes Absolute Auto 0.6 X10*3/uL (0.1-1.2); Monocytes Percent Auto 10.2 % (2-11); Neutrophils Absolute Auto 3.5 X10*3/uL (2.0-8.3); Neutrophils Percent Auto 61.9 % (45-73); Platelet Count 216 X10*3/uL (160-400); Red Blood Count 4.42 X10*6/uL (4.60-5.80); White Blood Count 5.7 X10*3/uL (4.8-10.8)
[2020-12-27 11:43] LABS: INTERNATIONAL NORM RATIO 0.9 (0.9-1.1); Prothrombin Time 11.2 SEC (10.8-13.0)
[2020-12-27 12:43] LABS: Anion Gap 11 (12-20); Blood Urea Nitrogen 18 mg/dL (9-16); Calcium 9.2 mg/dL (8.4-10.2); Carbon Dioxide 26 mmol/L (22-29); Chloride 105 mmol/L (96-108); Cholesterol 221 mg/dL; Estimated Glomerular Filt Rate > 60; Glucose Random 200 mg/dL (60-115); HDL Cholesterol 40 mg/dL; LDL Cholesterol Calculated 106 mg/dl; Potassium 4.3 mmol/L (3.3-5.1); Sodium 138 mmol/L (135-145); Triglycerides 375 mg/dL
== END 2020-12-27 10:57 | disposition home or self-care (01) ==
LOC: HO.LAB 10:56
PROVIDERS: PCP Internal Medicine; Visit Provider Nurse Practitioner Family
DX: I20.8 Other forms of angina pectoris (principal); E78.5 Hyperlipidemia, unspecified
CPT/HCPCS: 36415; 80048; 80061; 85025; 85610

== ENCOUNTER → 2021-01-11 09:44 | Outpatient (BNVA) | payer OTHER, SELFPAY | PROVIDERS: PCP Internal Medicine; Visit Provider Nurse Practitioner Family | DX: I20.8 Other forms of angina pectoris (principal); I25.10 Atherosclerotic heart disease of native coronary artery without angina pectoris; I10 Essential (primary) hypertension; E78.5 Hyperlipidemia, unspecified; Z98.890 Other specified postprocedural states; Z95.1 Presence of aortocoronary bypass graft; Z95.5 Presence of coronary angioplasty implant and graft | CPT/HCPCS: 99212 ==

== ENCOUNTER 2021-01-19 09:48 | Outpatient (REF) | payer OTHER, SELFPAY ==
[2021-01-19 10:48] LABS: Cholesterol 187 mg/dL; HDL Cholesterol 47 mg/dL; LDL Cholesterol Calculated 119 mg/dl; Triglycerides 105 mg/dL
== END 2021-01-19 09:49 | disposition home or self-care (01) ==
LOC: HO.LAB 09:48
PROVIDERS: PCP Internal Medicine; Visit Provider Nurse Practitioner Family
DX: E78.5 Hyperlipidemia, unspecified (principal)
CPT/HCPCS: 36415; 80061

== ENCOUNTER → 2021-04-21 09:04 | Outpatient (BNVA) | payer OTHER, SELFPAY | PROVIDERS: PCP Internal Medicine; Referring Provider Internal Medicine; Visit Provider Internal Medicine Cardiovascular Disease | DX: I25.118 Atherosclerotic heart disease of native coronary artery with other forms of angina pectoris (principal) | CPT/HCPCS: 99212 ==

== ENCOUNTER 2021-06-22 10:22 | Emergency (ER) | payer OTHER, SELFPAY ==
--- NOTE | ~2021-06-22 | XR_ITS ---
EXAMINATION: XR CHEST CLINICAL INFORMATION: Cough, shortness of breath. COMPARISON: Chest done on 09/21/2020. TECHNIQUE: Frontal view of the chest was obtained. FINDINGS: Postsurgical changes of sternotomy and CABG. No significant abnormality is noted involving the heart, lungs, mediastinum, bony thorax or soft tissues. XR/XR chest 1V IMPRESSION: No radiographic evidence of acute cardiopulmonary disease.
[2021-06-22 10:34] VITALS: BP 138/66; BP 147/63; PULSE 60; PULSE 64; RESP 17; TEMP 36.7; O2SAT 98; O2SAT 99; BMI 29.3
--- NOTE | 2021-06-22 10:45 | ECG_ITS ---
Test Reason : sob Blood Pressure : / mmHG Vent. Rate : 057 BPM Atrial Rate : 057 BPM P-R Int : 158 ms QRS Dur : 096 ms QT Int : 422 ms P-R-T Axes : 069 047 -22 degrees QTc Int : 410 ms Sinus bradycardia Intra-ventricular conduction delay Nonspecific T wave abnormality Abnormal ECG T wave inversion less evident in Lateral leads Referred By: Generic ED Physician Electronically Signed By:PAM BENEDICT MD
--- NOTE | 2021-06-22 11:44 | ED_ITS ---
HPI - General Adult General Chief complaint: Dyspnea Stated complaint: SOB,FEELS SOB,NO FEVER X'S 6 DAYS Time Seen by Provider: 06/22/21 11:23 Source: patient Mode of arrival: ambulatory Limitations: no limitations History of Present Illness HPI narrative: [age] year male who presents emergency department for ev aluation of chest pain, shortness of breath, cough, myalgias and headache. Patient states that he has been sick for approximately 6 days. He states that his cough which is nonproductive. He states over the last 3 days the cough has become more persistent and especially worse at night and is keeping him up. He is complaining of mid to left-sided chest pain he describes his pain as sharp to dull pain which is worse with coughing and movement. The pain is 7/10 at its worst. He states that he feels short of breath when he coughs but he is not short of breath at rest. He denies dyspnea on exertion. States that he has a mild intermittent headache and he has diffuse body aches. He denied fever, chills, diarrhea, loss of sense of taste or smell. The patient completed the 2 shot series of the Moderna vaccine with a 2nd shot being given 11/2020. He is not aware of any COVID exposures. Related Data Home Medications Medication Instructions Recorded Confirmed acarbose 50 mg tablet 50 mg PO BID tab 06/23/20 04/21/21 albuterol sulfate 90 mcg/actuation 2 puff INHALATION Q6H PRN 06/23/20 04/21/21 aerosol inhaler (ProAir HFA) aspirin 81 mg tablet,delayed 81 mg PO DAILY 06/23/20 04/21/21 release (Adult Low Dose Aspirin) atorvastatin 80 mg tablet 80 mg PO DAILY 06/23/20 04/21/21 chlorpromazine 100 mg tablet 100 mg PO BID tab 06/23/20 04/21/21 clonazepam 1 mg tablet 1 mg PO DAILY 06/23/20 04/21/21 fluticasone 250 mcg-salmeterol 50 1 inh INHALATION BID 06/23/20 04/21/21 mcg/dose blistr powdr for inhalation (Advair Diskus) insulin glargine 100 unit/mL (3 10 unit SUBCUT QPM 06/23/20 04/21/21 mL) subcutaneous pen (Lantus Solostar U-100 Insulin) loratadine 10 mg tablet 10 mg PO DAILY 06/23/20 04/21/21 methocarbamol 500 mg tablet 750 mg PO .EVERY 4 HOURS tab 06/23/20 04/21/21 multivitamin with minerals-folic tab PO 06/23/20 04/21/21 acid 0.4 mg tablet (Adult One Daily Multivitamin) nicotine 21 mg/24 hr daily 1 patch TRANSDERMAL DAILY 06/23/20 04/21/21 transdermal patch pantoprazole 40 mg tablet,delayed 40 mg PO DAILY 06/23/20 04/21/21 release sennosides 8.6 mg tablet (senna) 8.6 mg PO BEDTIME 06/23/20 04/21/21 tamsulosin 0.4 mg capsule (Flomax) 0.4 mg PO DAILY 06/23/20 04/21/21 tiotropium bromide 18 mcg capsule 1 cap INHALATION DAILY 06/23/20 04/21/21 with inhalation device (Spiriva with HandiHaler) trifluoperazine 2 mg tablet 2 mg PO DAILY 06/23/20 04/21/21 bupropion HCl 150 mg 24 hr tablet, mg PO 10/18/20 04/21/21 extended release quetiapine 100 mg tablet 100 mg PO DAILY tab 11/22/20 04/21/21 Previous Rx's Medication Instructions Recorded clindamycin HCl 300 mg capsule 300 mg PO Q8H #30 cap 06/07/20 azithromycin 500 mg tablet See Rx Instructions .ROUTE 09/21/20 (Zithromax TRI-JESSE) .COMPLEX #6 tab cefuroxime axetil 500 mg tablet 500 mg PO Q12H 7 Days #14 tab 09/21/20 isosorbide mononitrate 120 mg 120 mg PO QAM #30 tab 03/14/21 tablet,extended release 24 hr evolocumab 140 mg/mL subcutaneous 140 mg SUBCUT Q2W 90 Days #7 ml 04/12/21 pen injector (Sandor Espinoza) ezetimibe 10 mg tablet 10 mg PO DAILY 90 Days #90 tab 04/12/21 amlodipine 2.5 mg tablet 2.5 mg PO DAILY #30 tab 04/21/21 losartan 25 mg tablet 25 mg PO DAILY #30 tab 04/21/21 ranolazine 1,000 mg 1,000 mg PO BID 30 Days #60 tab 04/21/21 tablet,extended release,12 hr (Ranexa) metoprolol tartrate 50 mg tablet 50 mg PO BID 90 Days #180 tab 06/07/21 nitroglycerin 0.4 mg sublingual 0.4 mg SUBLINGUAL Q5M PRN #30 tab 06/07/21 tablet (Nitrostat) ticagrelor 90 mg tablet (Brilinta) 90 mg PO BID 90 Days #180 tab 06/09/21 benzonatate 200 mg capsule 200 mg PO TID PRN #15 cap 06/22/21 doxycycline hyclate 100 mg tablet 100 mg PO Q12H 10 Days #20 tab 06/22/21 prednisone 20 mg tablet 60 mg PO DAILY 5 Days #15 tab 06/22/21 Allergies Allergy/AdvReac Type Severity Reaction Status Date / Time penicillin V Allergy Severe rash Verified 01/11/21 10:00 Penicillins Allergy Mild RASH Verified 01/11/21 10:00 ciprofloxacin [From Cipro] Allergy Unknown RASH Verified 01/11/21 10:00 Review of Systems Review of Systems: Yes all other systems are reviewed and are negative [facility] Past Medical History [facility] Narrative: Social history: The patient smokes 7 cigarettes per day times 53 years. He states that he drinks beer and liquor weekly. He is a former user of cocaine. He states he has not used cocaine in over 4 years since he had his bypass surgery. Medical History Angina of effort Arthritis COPD (chronic obstructive pulmonary disease) Coronary artery disease Diabetes mellitus, type 2 Dizziness HLD (hyperlipidemia) HTN (hypertension) Peripheral vascular disease Surgical History H/O coronary artery bypass surgery S/P CABG x 3 (~09/2018) S/P cardiac cath (~08/2019) S/P cardiac cath (~04/2020) Stented coronary artery Social History Social History Alcohol intake: former Patient Tobacco Use Status: Current everyday Tobacco user Cigarette Packs Per Day: 0.5 Use of substances other than those prescribed or required for medical reasons: No Advance Directives: No Advance Directives Information Provided: No Physical Exam Vital Signs: Vital Signs: Last Vital Signs Temp 98.0 F 06/22/21 10:34 Pulse 58 06/22/21 13:37 Resp 20 06/22/21 13:37 BP 132/58 L 06/22/21 13:37 Pulse Ox 95 06/22/21 13:37 Body Mass Index 29.3 Const: General: cooperative and no acute distress Orientation/consciousness: oriented to person and oriented to place Limitations: no limitations HENMT: Head: Yes normal to inspection, Yes normocephalic and Yes atraumatic Ears: external ears normal General nose exam: Normal external nose present Face and sinus: Yes normal facial exam Mouth: Normal oral and palatal mucosa present Throat: Yes posterior oropharynx normal Eyes: General: appearance normal, both eyes and all related structures Pupils: Equal, round and reactive pupils present Neck: Neck: Yes normal visual inspection, Yes no lymphadenopathy, Yes trachea midline and Yes supple Chest: Chest palpation & inspection: normal inspection of the chest and tenderness sternum (Mild) and costochondral junction (Left chest) Resp: Effort & Inspection: normal respiratory effort and able to speak in complete sentences Auscultation: no rales, no rhonchi and wheezes (Diffuse expiratory wheezing) Cardio: Rate: regular rate Rhythm: regular rhythm Heart sounds: S1 normal heart sound present, S2 normal heart sound present and no murmurs GI: Inspection: Yes normal to inspection Palpation (GI): Soft to palpation, nontender and no guarding Auscultation: normal bowel sounds : General: Yes no CVA tenderness Back/Spine/Pelvis: Back: no CVA tenderness Skin: General skin exam: no rashes or lesions noted Neuro: General: oriented to person and oriented to place Cranial nerves: Yes CN's II-XII intact bilaterally and Yes Equal, round and reactive pupils present Cognition (Neuro): normal cognition Motor exam (neuro): 5/5 motor strength present throughout Extrem: General: Yes normal to inspection Psych: Appearance: grossly normal Speech and movement: Normal speech and movement present Affect: normal affect Attitude: cooperative Thought process: Normal thought process present Thought content: Normal thought content present Course Course Course Narrative: 66-year-old male who presents emergency department for evaluation of 6 days of cough, shortness of breath, headache, myalgias, chest pain. Patient's vital signs revealed an elevated blood pressure of 147/63 otherwise were unremarkable with an O2 saturation of 98% respiratory rate of 17. Lung exam revealed diffuse wheezing, chest wall did reveal tenderness with palpation of the sternum and left costochondral joints. Patient's 12 EKG was unremarkable. I ordered a CBC, CMP, troponin, lactate, COVID-19, one view chest x-ray. Patient's wheezing was treated with albuterol 4 puffs with a spacer. 1326: Patient's laboratory evaluation was unremarkable except for a slightly elevated troponin of 2.1. Patient's WBC was normal. The patient's high sensitive troponin was below detectable limits. Chest x-ray revealed no evidence of pneumonia congestive heart failure. COVID-19 test was negative. Patient did get some improvement with the above treatment but he is still wheezing. He was ordered to get Solu-Medrol 125 mg IV and a DuoNeb. Patient's presentation is consistent with acute bronchitis with a COPD exacerbation. Patient will be treated with doxycycline 100 mg twice a day for 10 days he was given his 1st dose here in the emergency department, prednisone 60 mg once a day for 5 days, Tessalon Perles 3 times a day as needed for cough. He was given printed and verbal instructions and discharged home. Medical Decision Making Lab Data Result diagrams: 06/22/21 11:51 06/22/21 11:51 Labs: Lab Results 06/22/21 06/22/21 06/22/21 Range/Units 11:51 11:51 11:51 WBC 6.9 (4.8-10.8) X10*3/uL RBC 4.18 L (4.60-5.80) X10*6/uL Hgb 13.7 L (14.0-18.0) g/dl Hct 40.3 L (42-52) % MCV 96.4 (80-98) fL MCH 32.8 (27.0-33.0) pg MCHC 34.0 (31.0-36.0) g/dl RDW 12.5 (11.0-16.0) % Plt Count 191 (160-400) X10*3/uL MPV 10.1 (9.4-12.4) fL Immature Gran % (Auto) 0.3 (0.0-0.4) % Neut % (Auto) 66.7 (45-73) % Lymph % (Auto) 19.6 L (20-40) % Nicholas % (Auto) 10.6 (2-11) % Eos % (Auto) 2.5 (0-4) % Baso % (Auto) 0.3 (0-2) % Lymph # (Auto) 1.4 (1.2-4.9) X10*3/uL Nicholas # (Auto) 0.7 (0.1-1.2) X10*3/uL Eos # (Auto) 0.2 (0.0-0.4) X10*3/uL Baso # (Auto) 0.0 (0.0-0.2) X10*3/uL Abs Immat Gran (auto) 0.02 (0.00-0.03) X10*3/uL Absolute Neuts (auto) 4.6 (2.0-8.3) X10*3/uL Absolute Nucleated RBC 0.000 (0.0-0.012) X10*3/uL Nucleated RBC % (auto) 0.0 (0.0-0.2) /100WBC Sodium 141 (135-145) mmol/L Potassium 4.3 (3.3-5.1) mmol/L Chloride 111 H (96-108) mmol/L Carbon Dioxide 22 (22-29) mmol/L Anion Gap 12 (12-20) BUN 17 H (9-16) mg/dL Creatinine 1.01 (0.5-1.4) mg/dL Estim Creat Clear Calc 72.5 Estimated GFR > 60 Random Glucose 74 D (60-115) mg/dL Lactic Acid 2.1 H* (0.5-2.0) mmol/L Calcium 8.8 (8.4-10.2) mg/dL Total Bilirubin 0.4 (0.0-1.0) mg/dL AST 22 (5-37) U/L ALT 10 (0-40) U/L Alkaline Phosphatase 87 (39-117) U/L Troponin I High Sens (<3.5-35.0) ng/L Total Protein 6.1 L (6.5-8.0) g/dL Albumin 3.8 (3.5-5.0) g/dL COVID-19 ([facility]) (Negative) COVID-19 Clin Com 06/22/21 06/22/21 Range/Units 11:51 11:51 WBC (4.8-10.8) X10*3/uL RBC (4.60-5.80) X10*6/uL Hgb (14.0-18.0) g/dl Hct (42-52) % MCV (80-98) fL MCH (27.0-33.0) pg MCHC (31.0-36.0) g/dl RDW (11.0-16.0) % Plt Count (160-400) X10*3/uL MPV (9.4-12.4) fL Immature Gran % (Auto) (0.0-0.4) % Neut % (Auto) (45-73) % Lymph % (Auto) (20-40) % Nicholas % (Auto) (2-11) % Eos % (Auto) (0-4) % Baso % (Auto) (0-2) % Lymph # (Auto) (1.2-4.9) X10*3/uL Nicholas # (Auto) (0.1-1.2) X10*3/uL Eos # (Auto) (0.0-0.4) X10*3/uL Baso # (Auto) (0.0-0.2) X10*3/uL Abs Immat Gran (auto) (0.00-0.03) X10*3/uL Absolute Neuts (auto) (2.0-8.3) X10*3/uL Absolute Nucleated RBC (0.0-0.012) X10*3/uL Nucleated RBC % (auto) (0.0-0.2) /100WBC Sodium (135-145) mmol/L Potassium (3.3-5.1) mmol/L Chloride (96-108) mmol/L Carbon Dioxide (22-29) mmol/L Anion Gap (12-20) BUN (9-16) mg/dL Creatinine (0.5-1.4) mg/dL Estim Creat Clear Calc Estimated GFR Random Glucose (60-115) mg/dL Lactic Acid (0.5-2.0) mmol/L Calcium (8.4-10.2) mg/dL Total Bilirubin (0.0-1.0) mg/dL AST (5-37) U/L ALT (0-40) U/L Alkaline Phosphatase (39-117) U/L Troponin I High Sens < 3.5 (<3.5-35.0) ng/L Total Protein (6.5-8.0) g/dL Albumin (3.5-5.0) g/dL COVID-19 ([facility]) Negative (Negative) COVID-19 Clin Com See Note ECG Data Attestation: I personally reviewed and interpreted this ECG as follows: Interpretation: 1123: Sinus bradycardia with a rate of 57, normal [place], QRS and QTC intervals, no ST segment elevation, no ST segment depression, no PACs, no PVCs no Q-waves, except for the sinus bradycardia this is a normal EKG. Discharge Plan Discharge Clinical Impression: Bronchitis, Acute exacerbation of chronic obstructive pulmonary disease, Acute bronchospasm Patient Disposition: Home, Self-Care Instructions: Acute Bronchitis (ED) Additional Instructions: Your blood work was normal. Your chest x-ray revealed no evidence of pneumonia or fluid in your lungs. Your COVID-19 test was negative. Your symptoms are consistent with bronchitis which is inflammation infection of your breathing to and an exacerbation of your underlying COPD and asthma. Take doxycycline 100 mg pills, 1 pill twice a day for 10 days. Take prednisone 20 mg pills, 3 pills once a day for 5 days. Take Tessalon Perles 200 mg pills, 1 pill 3 times a day as needed for cough Follow-up with your doctor in 2 days. Please return to the emergency department if your symptoms get worse or if you develop any symptoms that are concerning to you. Prescriptions: New prednisone 20 mg tablet 60 mg PO DAILY 5 Days Qty: 15 RF: 0 doxycycline hyclate 100 mg tablet 100 mg PO Q12H 10 Days Qty: 20 RF: 0 benzonatate 200 mg capsule 200 mg PO TID PRN (Reason: cough) Qty: 15 RF: 0 No Action isosorbide mononitrate 120 mg tablet extended release 24 hr 120 mg PO QAM Qty: 30 RF: 4 ezetimibe 10 mg tablet 10 mg PO DAILY 90 Days Qty: 90 RF: 3 Repatha SureClick 140 mg/mL pen injector 140 mg subcut Q2W 90 Days Qty: 7 RF: 3 nitroglycerin [Nitrostat] 0.4 mg tablet, sublingual 0.4 mg sublingual Q5M PRN (Reason: chest pain) Qty: 30 RF: 1 metoprolol tartrate 50 mg tablet 50 mg PO BID 90 Days Qty: 180 RF: 1 Brilinta 90 mg tablet 90 mg PO BID 90 Days Qty: 180 RF: 1 azithromycin [Zithromax TRI-JESSE] 500 mg tablet See Rx Instructions .ROUTE .COMPLEX Qty: 6 RF: 0 cefuroxime axetil 500 mg tablet 500 mg PO Q12H 7 Days Qty: 14 RF: 0 clindamycin HCl 300 mg capsule 300 mg PO Q8H Qty: 30 RF: 0 bupropion HCl 150 mg tablet extended release 24 hr PO RF: 0 quetiapine 100 mg tablet 100 mg PO DAILY RF: 0 acarbose 50 mg tablet 50 mg PO BID RF: 0 pantoprazole 40 mg tablet,delayed release (DR/EC) 40 mg PO DAILY RF: 0 loratadine 10 mg tablet 10 mg PO DAILY RF: 0 trifluoperazine 2 mg tablet 2 mg PO DAILY RF: 0 sennosides [senna] 8.6 mg tablet 8.6 mg PO BEDTIME RF: 0 clonazepam 1 mg tablet 1 mg PO DAILY RF: 0 chlorpromazine 100 mg tablet 100 mg PO BID RF: 0 Adult One Daily Multivitamin 0.4 mg tablet PO RF: 0 Lantus Solostar U-100 Insulin 100 unit/mL (3 mL) insulin pen 10 unit subcut QPM RF: 0 fluticasone propion-salmeterol [Advair Diskus] 250-50 mcg/dose blister with device 1 inh inhalation BID RF: 0 tamsulosin [Flomax] 0.4 mg capsule 0.4 mg PO DAILY RF: 0 aspirin [Adult Low Dose Aspirin] 81 mg tablet,delayed release (DR/EC) 81 mg PO DAILY RF: 0 albuterol sulfate [ProAir HFA] 90 mcg/actuation HFA aerosol inhaler 2 puff inhalation Q6H PRNRF: 0 Spiriva with HandiHaler 18 mcg capsule, w/inhalation device 1 cap inhalation DAILY RF: 0 methocarbamol 500 mg tablet 750 mg PO .EVERY 4 HOURS RF: 0 nicotine 21 mg/24 hr patch 24 hour 1 patch transdermal DAILY RF: 0 atorvastatin 80 mg tablet 80 mg PO DAILY RF: 0 amlodipine 2.5 mg tablet 2.5 mg PO DAILY Qty: 30 RF: 3 losartan 25 mg tablet 25 mg PO DAILY Qty: 30 RF: 3 ranolazine [Ranexa] 1,000 mg tablet extended release 12 hr 1,000 mg PO BID 30 Days Qty: 60 RF: 5
--- NOTE | 2021-06-22 11:59 | PC.NURSE ---
pt alert and oriented, skin appropriate for ethnicity, respirations even and unlabored, ls wheezing, pt reports cough for a couple of days, dry cough, and chest pain/tightness in the chest. ns on the monitor, vs stable
[2021-06-22 12:01] LABS: MANUAL DIFF FLAG NO
[2021-06-22 12:06] LABS: Basophils Percent Auto 0.3 % (0-2); Eosinophils Absolute Auto 0.2 X10*3/uL (0.0-0.4); Eosinophils Percent Auto 2.5 % (0-4); Hematocrit 40.3 % (42-52); Hemoglobin 13.7 g/dl (14.0-18.0); Imm Gran Abs Auto 0.02 X10*3/uL (0.00-0.03); Imm Gran Pct Auto 0.3 % (0.0-0.4); Lymphocytes Absolute Auto 1.4 X10*3/uL (1.2-4.9); Lymphocytes Percent Auto 19.6 % (20-40); Mean Corpuscular Hemoglobin 32.8 pg (27.0-33.0); Mean Corpuscular Volume 96.4 fL (80-98); Mean Platelet Volume 10.1 fL (9.4-12.4); Monocytes Absolute Auto 0.7 X10*3/uL (0.1-1.2); Monocytes Percent Auto 10.6 % (2-11); Neutrophils Absolute Auto 4.6 X10*3/uL (2.0-8.3); Neutrophils Percent Auto 66.7 % (45-73); Platelet Count 191 X10*3/uL (160-400); Red Blood Count 4.18 X10*6/uL (4.60-5.80); Red Cell Distribution Width 12.5 % (11.0-16.0); White Blood Count 6.9 X10*3/uL (4.8-10.8)
[2021-06-22] MEDS: Albuterol Sulfate 90 MCG 8 GM INHALER 4 PUFF INHALE (12:09)
[2021-06-22 12:18] LABS: COVID-19 Test Negative (Negative); IDNOW Serial# 9DD0AD1C
[2021-06-22 12:23] LABS: Lactic Acid 2.1 mmol/L (0.5-2.0)
[2021-06-22 12:25] LABS: Troponin-I High Sensitivity < 3.5 ng/L (<3.5-35.0)
[2021-06-22 12:39] LABS: Alanine Aminotransferase 10 U/L (0-40); Albumin Level 3.8 g/dL (3.5-5.0); Alkaline Phosphatase 87 U/L (39-117); Anion Gap 12 (12-20); Aspartate Amino Transferase 22 U/L (5-37); Bilirubin Total 0.4 mg/dL (0.0-1.0); Blood Urea Nitrogen 17 mg/dL (9-16); Calcium 8.8 mg/dL (8.4-10.2); Carbon Dioxide 22 mmol/L (22-29); Chloride 111 mmol/L (96-108); Creatinine Clr Calc Pharmacy 72.5; Estimated Glomerular Filt Rate > 60; Glucose Random 74 mg/dL (60-115); Potassium 4.3 mmol/L (3.3-5.1); Sodium 141 mmol/L (135-145); Total Protein 6.1 g/dL (6.5-8.0)
[2021-06-22 13:37] VITALS: BP 132/58; PULSE 58; RESP 20; O2SAT 95
[2021-06-22] MEDS: methylPREDNISolone Sod Succ 125 MG/2 ML VIAL IVPUSH (13:37)
--- NOTE | 2021-06-22 13:41 | PC.NURSE ---
pt reports minimal improvement after the inhaler respirations even and unlabored, some wheezing on expatriation through all bases, vs stable, normal sinus on the minitor
[2021-06-22 13:59] LABS: Reflex Lactate? Lactic Acid Added
[2021-06-22] MEDS: Albuterol/Iprat 2.5/0.5MG 3 ML AMPUL.NEB INHALE (14:13)
[2021-06-22 14:14] VITALS: PULSE 55; O2SAT 98
== END 2021-06-22 14:23 | disposition home or self-care (01) ==
PROVIDERS: Emergency Provider Emergency Medicine Emergency Medical Services; PCP Internal Medicine
DX: J44.0 Chronic obstructive pulmonary disease with (acute) lower respiratory infection (principal); J20.9 Acute bronchitis, unspecified; J44.1 Chronic obstructive pulmonary disease with (acute) exacerbation; I10 Essential (primary) hypertension; I25.10 Atherosclerotic heart disease of native coronary artery without angina pectoris; Z20.822 Contact with and (suspected) exposure to COVID-19
CPT/HCPCS: 36415; 71045; 80053; 83605; 84484; 85025; 87635; 93005; 94640; 99284; J2930

== ENCOUNTER → 2021-07-26 12:28 | Outpatient (BNVA) | payer OTHER, SELFPAY | PROVIDERS: PCP Internal Medicine; Referring Provider Internal Medicine; Visit Provider Nurse Practitioner Family | DX: I20.8 Other forms of angina pectoris (principal); I25.10 Atherosclerotic heart disease of native coronary artery without angina pectoris; I10 Essential (primary) hypertension; E78.5 Hyperlipidemia, unspecified; Z95.5 Presence of coronary angioplasty implant and graft; Z98.890 Other specified postprocedural states; Z95.1 Presence of aortocoronary bypass graft | CPT/HCPCS: 99212 ==

== ENCOUNTER → 2021-07-27 12:48 | Outpatient (BNVA) | payer OTHER, SELFPAY | PROVIDERS: PCP Internal Medicine; Referring Provider Internal Medicine; Visit Provider Nurse Practitioner Family | DX: K59.04 Chronic idiopathic constipation (principal); K21.9 Gastro-esophageal reflux disease without esophagitis; R14.0 Abdominal distension (gaseous) | CPT/HCPCS: 99202 ==

== ENCOUNTER → 2021-09-26 09:46 | Outpatient (BNVA) | payer OTHER, SELFPAY | PROVIDERS: PCP Internal Medicine; Referring Provider Internal Medicine; Visit Provider Nurse Practitioner Family | DX: Z12.11 Encounter for screening for malignant neoplasm of colon (principal); K59.00 Constipation, unspecified; K21.9 Gastro-esophageal reflux disease without esophagitis; R14.0 Abdominal distension (gaseous) | CPT/HCPCS: 99212 ==

== ENCOUNTER 2021-10-14 09:02 | Outpatient (REF) | payer OTHER, SELFPAY ==
--- NOTE | ~2021-10-14 | XR_ITS ---
EXAMINATION: XR KNEE, RIGHT CLINICAL INFORMATION: Pain COMPARISON: Previous x-ray January 2020 TECHNIQUE: Four views of the right knee. FINDINGS: Bone alignment is normal. No fracture or dislocation is seen. The joint spaces are normal. There is no joint effusion. XR/XR knee RT 4V IMPRESSION: Unremarkable exam.
[2021-10-14 10:26] LABS: Alanine Aminotransferase 14 U/L (0-40); Aspartate Amino Transferase 18 U/L (5-37); Cholesterol 70 mg/dL; HDL Cholesterol 40 mg/dL; LDL Cholesterol Calculated 11 mg/dl; Triglycerides 96 mg/dL
== END 2021-10-14 09:03 | disposition home or self-care (01) ==
LOC: HO.LAB 09:02
PROVIDERS: Absent Provider Internal Medicine; PCP Internal Medicine; Visit Provider Nurse Practitioner Family
DX: E78.5 Hyperlipidemia, unspecified (principal); M25.561 Pain in right knee
CPT/HCPCS: 36415; 73564; 80061; 84450; 84460

== ENCOUNTER → 2021-10-18 12:31 | Outpatient (BNVA) | payer OTHER, SELFPAY | PROVIDERS: PCP Internal Medicine; Referring Provider Internal Medicine; Visit Provider Internal Medicine Cardiovascular Disease | DX: I25.10 Atherosclerotic heart disease of native coronary artery without angina pectoris (principal) | CPT/HCPCS: 99212 ==

== ENCOUNTER → 2021-11-25 10:14 | Outpatient (BNVA) | payer OTHER, SELFPAY | PROVIDERS: PCP Internal Medicine; Referring Provider Internal Medicine; Visit Provider Nurse Practitioner Family | DX: Z12.11 Encounter for screening for malignant neoplasm of colon (principal); I25.10 Atherosclerotic heart disease of native coronary artery without angina pectoris | CPT/HCPCS: 99212 ==

== ENCOUNTER 2021-12-28 15:13 | Emergency (ER) | payer OTHER, SELFPAY ==
--- NOTE | ~2021-12-28 | XR_ITS ---
EXAMINATION: XR CHEST CLINICAL INFORMATION: Chest pain COMPARISON: None TECHNIQUE: Frontal view of the chest was obtained. FINDINGS: The lungs are hyperinflated with no acute pneumonic process or pleural effusion. There are median sternotomy sutures from previous intervention. The heart size and great vessels are normal caliber. No gross bony abnormality seen. XR/XR chest 1V IMPRESSION: Hyperinflated lungs with no acute pneumonic process seen. There are median sternotomy sutures from previous intervention.
--- NOTE | ~2021-12-28 | CT_ITS ---
EXAMINATION: CT ANGIOGRAM OF THE CHEST WITH AND WITHOUT CONTRAST (CT PULMONARY ANGIOGRAM FOR PE) CLINICAL INFORMATION: Reason for Exam covid +, CP, elevated dimer COMPARISON: Chest x-ray 12/28/2021 performed earlier TECHNIQUE: Prior to contrast administration, noncontrast localization images were obtained. Subsequently, multidetector volumetric imaging was performed from the thoracic inlet to below the diaphragms following the administration of 65 mL Omnipaque 350 intravenous contrast. No contrast reaction reported Sagittal, coronal, and MIP oblique sagittal reformatted images were obtained on the CT workstation, uploaded to PACS, and reviewed. This CT examination was performed using dose optimization techniques as appropriate, variously including the following: *Automated exposure control *Adjustment of mA and/or kV according to patient size (this includes techniques or standardized protocols for targeted exams where dose is matched to indication/reason for exam; i.e. extremities or head) *Use of iterative reconstruction technique Total exam dose-length product 342 mGy-cm FINDINGS: QUALITY OF STUDY/CONTRAST BOLUS: Satisfactory. PULMONARY ARTERIES: No central or segmental pulmonary emboli. THORACIC AORTA: No aneurysm or dissection. LUNG: The lungs are well-expanded and clear of acute pneumonic process. There is a subpleural 5 minutes density right upper lobe axial image 17/5. No additional pulmonary nodule, mass or consolidation. PLEURA: There is no pleural effusion or thickening. MEDIASTINUM: The heart size is normal. There are coronary artery calcifications. No pericardial effusion seen. Central trachea and the bronchi widely patent. Thyroid lobes are symmetrical and normal. No abnormal No evidence of septal bowing or right heart strain. CHEST WALL/AXILLA: No axillary or internal mammary lymphadenopathy. OSSEOUS STRUCTURES: No lytic or sclerotic process seen. There are median sternotomy sutures UPPER ABDOMEN: Visualized liver, spleen, pancreas and bilateral adrenal glands are unremarkable. There are no radiopaque gallstones. Partially visualized and internal finding is diffuse mural thickening involving distal ascending and proximal transverse colon suspicious for colitis. No reflux of contrast into the hepatic veins to suggest elevated right heart pressures. CT/CT angio chest PE protocol IMPRESSION: No evidence of aortic dissection, aneurysm. No evidence of PE. Small subpleural nodule right upper lobe likely pleural-based lymph node. No acute consolidation. Incidental finding of colitis involving the distal ascending colon and right transverse colon. However this is partially visualized. Consider CT abdomen and pelvis exam. VTE: negative
--- NOTE | 2021-12-28 15:16 | ECG_ITS ---
Test Reason : chest pain Blood Pressure : / mmHG Vent. Rate : 085 BPM Atrial Rate : 085 BPM P-R Int : 152 ms QRS Dur : 096 ms QT Int : 390 ms P-R-T Axes : 080 063 -21 degrees QTc Int : 464 ms Normal sinus rhythm Possible Left atrial enlargement Nonspecific ST and T wave abnormality Abnormal ECG When compared with ECG of 22-JUN-2021 11:23, Vent. rate has increased BY 28 BPM QT has lengthened Referred By: Generic ED Physician Electronically Signed By:Johnson Dutton
[2021-12-28 15:18] VITALS: BP 150/74; PULSE 89; RESP 18; TEMP 37.1; O2SAT 99; BMI 27.7
[2021-12-28 15:35] LABS: MANUAL DIFF FLAG NO
[2021-12-28 15:36] LABS: Basophils Percent Auto 0.1 % (0-2); Eosinophils Absolute Auto 0.2 X10*3/uL (0.0-0.4); Eosinophils Percent Auto 1.7 % (0-4); Hematocrit 40.3 % (42.0-52.0); Hemoglobin 13.3 g/dl (14.0-18.0); Imm Gran Abs Auto 0.06 X10*3/uL (0.00-0.03); Imm Gran Pct Auto 0.5 % (0.0-0.4); Lymphocytes Absolute Auto 1.3 X10*3/uL (1.2-4.9); Lymphocytes Percent Auto 11.8 % (20-40); Mean Corpuscular Hemoglobin 32.4 pg (27.0-33.0); Mean Corpuscular Volume 98.3 fL (80.0-98.0); Mean Platelet Volume 9.8 fL (9.4-12.4); Monocytes Absolute Auto 0.8 X10*3/uL (0.1-1.2); Monocytes Percent Auto 7.1 % (2-11); Neutrophils Absolute Auto 8.8 x10*3/uL (2.0-8.3); Neutrophils Percent Auto 78.8 % (45-73); Platelet Count 212 X10*3/uL (160-400); Red Cell Distribution Width 12.3 % (11.0-16.0); White Blood Count 11.2 X10*3/uL (4.8-10.8)
[2021-12-28 15:48] LABS: Anion Gap 16 (12-20); Blood Urea Nitrogen 17 mg/dL (9-16); Calcium 8.9 mg/dL (8.4-10.2); Carbon Dioxide 22 mmol/L (22-29); Chloride 108 mmol/L (96-108); Creatinine Clr Calc Pharmacy 57.5; Estimated Glomerular Filt Rate 58; Glucose Random 215 mg/dL (60-115); Potassium 4.5 mmol/L (3.3-5.1); Sodium 141 mmol/L (135-145)
[2021-12-28 15:55] LABS: Troponin-I High Sensitivity < 3.5 ng/L (<3.5-35.0)
--- NOTE | 2021-12-28 16:20 | ED_ITS ---
HPI - Chest Pain General Chief Complaint: Chest Pain Stated Complaint: covid+, chest pain Time Seen by Provider: 12/28/21 16:20 Source: patient Mode of arrival: ambulatory Limitations: no limitations History of Present Illness HPI narrative: Patient comes to the emergency room complaining of chest pain for 6 days. Patient states that he has been coughing quite a bit, patient tested himself couple of days ago for COVID, home test was positive. Patient states that the whole family has COVID. Patient complaining of shortness of breath after coughing spells. Patient states that the chest pain is not continuous, it is worse with deep inhalations and with coughing. Patient also feeling weak. Patient denies lower extremity pain. Related Data Home Medications Medication Instructions Recorded Confirmed acarbose 50 mg tablet 50 mg PO BID tab 06/23/20 10/18/21 albuterol sulfate 90 mcg/actuation 2 puff INHALATION Q6H PRN 06/23/20 10/18/21 aerosol inhaler (ProAir HFA) aspirin 81 mg tablet,delayed 81 mg PO DAILY 06/23/20 10/18/21 release (Adult Low Dose Aspirin) atorvastatin 80 mg tablet 80 mg PO DAILY 06/23/20 10/18/21 chlorpromazine 100 mg tablet 100 mg PO BID tab 06/23/20 10/18/21 clonazepam 1 mg tablet 1 mg PO DAILY 06/23/20 10/18/21 fluticasone 250 mcg-salmeterol 50 1 inh INHALATION BID 06/23/20 10/18/21 mcg/dose blistr powdr for inhalation (Advair Diskus) insulin glargine 100 unit/mL (3 10 unit SUBCUT QPM 06/23/20 10/18/21 mL) subcutaneous pen (Lantus Solostar U-100 Insulin) loratadine 10 mg tablet 10 mg PO DAILY 06/23/20 10/18/21 methocarbamol 500 mg tablet 750 mg PO .EVERY 4 HOURS tab 06/23/20 07/26/21 multivitamin with minerals-folic tab PO 06/23/20 10/18/21 acid 0.4 mg tablet (Adult One Daily Multivitamin) nicotine 21 mg/24 hr daily 1 patch TRANSDERMAL DAILY 06/23/20 07/26/21 transdermal patch tamsulosin 0.4 mg capsule (Flomax) 0.4 mg PO DAILY 06/23/20 10/18/21 tiotropium bromide 18 mcg capsule 1 cap INHALATION DAILY 06/23/20 10/18/21 with inhalation device (Spiriva with HandiHaler) trifluoperazine 2 mg tablet 2 mg PO DAILY 06/23/20 10/18/21 quetiapine 100 mg tablet 100 mg PO DAILY tab 11/22/20 10/18/21 bupropion HCl 150 mg 24 hr tablet, 150 mg PO tab 10/18/21 10/18/21 extended release Previous Rx's Medication Instructions Recorded evolocumab 140 mg/mL subcutaneous 140 mg SUBCUT Q2W 90 Days #7 ml 04/12/21 pen injector (Sandor Espinoza) ezetimibe 10 mg tablet 10 mg PO DAILY 90 Days #90 tab 04/12/21 isosorbide mononitrate 120 mg 120 mg PO QAM #30 tab 09/19/21 tablet,extended release 24 hr pantoprazole 40 mg tablet,delayed 40 mg PO DAILY #30 tab 09/26/21 release simethicone 180 mg capsule (Gas 180 mg PO BID PRN #60 cap 09/26/21 Relief (simethicone)) nitroglycerin 0.4 mg sublingual 0.4 mg SUBLINGUAL Q5M PRN #30 tab 10/24/21 tablet (Nitrostat) ranolazine 1,000 mg 1,000 mg PO BID 30 Days #60 tab 10/24/21 tablet,extended release,12 hr (Ranexa) metoprolol tartrate 50 mg tablet 50 mg PO BID 90 Days #180 tab 11/21/21 sennosides 8.6 mg tablet (senna) 17.2 mg PO BEDTIME #60 tab 11/21/21 amlodipine 2.5 mg tablet 2.5 mg PO DAILY #30 tab 12/19/21 losartan 25 mg tablet 25 mg PO DAILY #30 tab 12/19/21 ticagrelor 90 mg tablet (Brilinta) 90 mg PO BID 30 Days #60 tab 12/19/21 Allergies Allergy/AdvReac Type Severity Reaction Status Date / Time penicillin V Allergy Severe rash Verified 12/28/21 15:21 Penicillins Allergy Mild RASH Verified 12/28/21 15:21 ciprofloxacin [From Cipro] Allergy Unknown RASH Verified 12/28/21 15:21 Review of Systems Review of Systems: Constitutional : No Weight loss, No Fever, No Chills, No Night Sweats, No Fatigue, complaining of generalized weakness ENT/Mouth : No Hearing loss, No Ear Pain, No Nasal Congestion, No Sinus Pain, No Hoarseness, No sore throat, No Rhinorrhea, No Swallowing Difficulty Eyes: No Eye Pain, No Swelling, No Redness, No Foreign Body, No Discharge, No Vision Changes Cardiovascular : Chest pain for 6 days worse with coughing and deep inspiration, no orthopnea, no edema or palpitations Respiratory : Planning of dry cough, mild dyspnea but worse after coughing spells. Gastrointestinal : No Nausea, No Vomiting, No Diarrhea, No Constipation, No abdominal Pain, No Hematochezia, No Melena Genitourinary : no irregular bleeding, No Dysuria, No Urinary Frequency, No Hematuria, No Urinary Incontinence, No Urgency, No Flank Pain, No Urinary Flow Changes, No Hesitancy Musculoskeletal : No joint pain, No Myalgias, No Joint Swelling Skin : No Skin Lesions, No rash Neuro : No Weakness, No Numbness, No Paresthesias, No Loss of Consciousness, No Dizziness, No Headache Psych : No Anxiety/Panic, No Depression, No SI/HI/AH/VH, No Social Issues, Heme/Lymph: No Bruising, No Bleeding,No Lymphadenopathy Endocrine : No Polyuria, No Polydipsia, No Temperature Intolerance COUNTS INCLUDE 234 BEDS AT THE [facility] Past Medical History Medical History Angina of effort Arthritis COPD (chronic obstructive pulmonary disease) Coronary artery disease Diabetes mellitus, type 2 Dizziness HLD (hyperlipidemia) HTN (hypertension) Peripheral vascular disease Surgical History H/O coronary artery bypass surgery S/P CABG x 3 (~09/2018) S/P cardiac cath (~08/2019) S/P cardiac cath (~04/2020) S/P cardiac catheterization (~12/2020) Stented coronary artery Social History Social History Alcohol intake: former Patient Tobacco Use Status: Current everyday Tobacco user Cigarette Packs Per Day: 0.5 Advance Directives: No Advance Directives Information Provided: No Physical Exam Vital Signs: Vital Signs: Last Vital Signs Temp 98.4 F 05/04/22 19:06 Pulse 58 12/28/21 19:06 Resp 20 12/28/21 19:06 BP 128/65 12/28/21 19:06 Pulse Ox 99 12/28/21 19:06 BMI result Body Mass Index 27.7 Const: Other: Appearance: Alert. Oriented X3. No acute distress. Eyes: Pupils equal, round and reactive to light. ENT: Pharynx normal. Neck: Normal inspection. Neck supple. No lymph nodes noted. No crepitus CVS: Normal heart rate and rhythm. Pulses normal. Normal S1 and S2 Respiratory: No respiratory distress. Breath sounds normal. No Wheezing. No rales Abdomen: Soft and nontender. No rigidity. No distention. Skin: Skin warm and dry. Normal skin color. Normal skin turgor. Extremities: No lower extremity edema. No Lacerations. No Rash Neuro: Oriented X 3. No motor deficit. No sensory deficit. Moving all extremities. No slurred speech. CN 2 through 12 grossly intact Psych: calm, cooperative, normal affect Course Course Course Narrative: Patient's labs pending. Troponin positive, CTA negative for pulmonary embolism. Incidental finding possible colitis involving the distal ascending colon. Patient has no GI symptoms. Patient tested positive for COVID. Patient is at 6 days since the symptoms started. Patient does not qualify for oral medication. However, patient would benefit from monoclonal antibody referral due to his comorbidities, I discussed with the patient, patient agreeable. Referral has been sent Patient's oxygen saturation remains 99%, even when walking around his room. No dyspnea. MDM - Chest Pain Lab Data Result diagrams: 12/28/21 15:29 12/28/21 15:29 Labs: Lab Results 12/28/21 12/28/21 12/28/21 Range/Units 15:29 15:29 15:29 WBC 11.2 H (4.8-10.8) X10*3/uL RBC 4.10 L (4.60-5.80) X10*6/uL Hgb 13.3 L (14.0-18.0) g/dl Hct 40.3 L (42.0-52.0) % MCV 98.3 H (80.0-98.0) fL MCH 32.4 (27.0-33.0) pg MCHC 33.0 (31.0-36.0) g/dl RDW 12.3 (11.0-16.0) % Plt Count 212 (160-400) X10*3/uL MPV 9.8 (9.4-12.4) fL Immature Gran % (Auto) 0.5 H (0.0-0.4) % Neut % (Auto) 78.8 H (45-73) % Lymph % (Auto) 11.8 L (20-40) % Desha % (Auto) 7.1 (2-11) % Eos % (Auto) 1.7 (0-4) % Baso % (Auto) 0.1 (0-2) % Lymph # (Auto) 1.3 (1.2-4.9) X10*3/uL Desha # (Auto) 0.8 (0.1-1.2) X10*3/uL Eos # (Auto) 0.2 (0.0-0.4) X10*3/uL Baso # (Auto) 0.0 (0.0-0.2) X10*3/uL Abs Immat Gran (auto) 0.06 H (0.00-0.03) X10*3/uL Absolute Neuts (auto) 8.8 H (2.0-8.3) x10*3/uL Absolute Nucleated RBC 0.000 (0.0-0.012) X10*3/uL Nucleated RBC % (auto) 0.0 (0.0-0.2) /100WBC D-Dimer High Sensitivty NG/ML Sodium 141 (135-145) mmol/L Potassium 4.5 (3.3-5.1) mmol/L Chloride 108 (96-108) mmol/L Carbon Dioxide 22 (22-29) mmol/L Anion Gap 16 (12-20) BUN 17 H (9-16) mg/dL Creatinine 1.24 (0.5-1.4) mg/dL Estim Creat Clear Calc 57.5 Estimated GFR 58 Random Glucose 215 H D (60-115) mg/dL Calcium 8.9 (8.4-10.2) mg/dL Troponin I High Sens < 3.5 (<3.5-35.0) ng/L COVID-19 ([facility]) (Negative) COVID-19 Clin Com 12/28/21 12/28/21 Range/Units 17:20 17:20 WBC (4.8-10.8) X10*3/uL RBC (4.60-5.80) X10*6/uL Hgb (14.0-18.0) g/dl Hct (42.0-52.0) % MCV (80.0-98.0) fL MCH (27.0-33.0) pg MCHC (31.0-36.0) g/dl RDW (11.0-16.0) % Plt Count (160-400) X10*3/uL MPV (9.4-12.4) fL Immature Gran % (Auto) (0.0-0.4) % Neut % (Auto) (45-73) % Lymph % (Auto) (20-40) % Desha % (Auto) (2-11) % Eos % (Auto) (0-4) % Baso % (Auto) (0-2) % Lymph # (Auto) (1.2-4.9) X10*3/uL Desha # (Auto) (0.1-1.2) X10*3/uL Eos # (Auto) (0.0-0.4) X10*3/uL Baso # (Auto) (0.0-0.2) X10*3/uL Abs Immat Gran (auto) (0.00-0.03) X10*3/uL Absolute Neuts (auto) (2.0-8.3) x10*3/uL Absolute Nucleated RBC (0.0-0.012) X10*3/uL Nucleated RBC % (auto) (0.0-0.2) /100WBC D-Dimer High Sensitivty 1053 NG/ML Sodium (135-145) mmol/L Potassium (3.3-5.1) mmol/L Chloride (96-108) mmol/L Carbon Dioxide (22-29) mmol/L Anion Gap (12-20) BUN (9-16) mg/dL Creatinine (0.5-1.4) mg/dL Estim Creat Clear Calc Estimated GFR Random Glucose (60-115) mg/dL Calcium (8.4-10.2) mg/dL Troponin I High Sens (<3.5-35.0) ng/L COVID-19 ([facility]) Positive A (Negative) COVID-19 Clin Com See Note Imaging Data Chest CTA: Radiologist's impression: FINDINGS: QUALITY OF STUDY/CONTRAST BOLUS: Satisfactory. PULMONARY ARTERIES: No central or segmental pulmonary emboli.? THORACIC AORTA: No aneurysm or dissection. LUNG: The lungs are well-expanded and clear of acute pneumonic process. There is a subpleural 5 minutes density right upper lobe axial image 17/5. No additional pulmonary nodule, mass or consolidation. PLEURA: There is no pleural effusion or thickening. MEDIASTINUM: The heart size is normal. There are coronary artery calcifications. No pericardial effusion seen. Central trachea and the bronchi widely patent. Thyroid lobes are symmetrical and normal. No abnormal No evidence of septal bowing or right heart strain. CHEST WALL/AXILLA: No axillary or internal mammary lymphadenopathy. OSSEOUS STRUCTURES: No lytic or sclerotic process seen. There are median sternotomy sutures? UPPER ABDOMEN: Visualized liver, spleen, pancreas and bilateral adrenal glands are unremarkable. There are no radiopaque gallstones. Partially visualized and internal finding is diffuse mural thickening involving distal ascending and proximal transverse colon suspicious for colitis. No reflux of contrast into the hepatic veins to suggest elevated right heart pressures. CT/CT angio chest PE protocol IMPRESSION: No evidence of aortic dissection, aneurysm. ? No evidence of PE. ? Small subpleural nodule right upper lobe likely pleural-based lymph node. No acute consolidation. ? Incidental finding of colitis involving the distal ascending colon and right transverse colon. However this is partially visualized. Consider CT abdomen and pelvis exam. ? VTE: negative Discharge Plan Discharge Clinical Impression: COVID-19 Patient Disposition: Home, Self-Care Instructions: COVID-19 (Coronavirus Disease 2019) (ED) Additional Instructions: A referal [facility] to the [facility] [place]. They will call you and give you more information about your appointment. Please follow-up with your primary care physician tomorrow. If you have any worsening or new symptoms, please return to the emergency room or call 911 Prescriptions: No Action ezetimibe 10 mg tablet 10 mg PO DAILY 90 Days Qty: 90 3RF Repatha SureClick 140 mg/mL pen injector 140 mg subcut Q2W 90 Days Qty: 7 3RF isosorbide mononitrate 120 mg tablet extended release 24 hr 120 mg PO QAM Qty: 30 4RF nitroglycerin [Nitrostat] 0.4 mg tablet, sublingual 0.4 mg sublingual Q5M PRN (Reason: chest pain) Qty: 30 2RF Rx Instructions: do not exceed 3 doses per episode ranolazine [Ranexa] 1,000 mg tablet extended release 12 hr 1,000 mg PO BID 30 Days Qty: 60 5RF metoprolol tartrate 50 mg tablet 50 mg PO BID 90 Days Qty: 180 1RF sennosides [senna] 8.6 mg tablet 17.2 mg PO BEDTIME Qty: 60 0RF Brilinta 90 mg tablet 90 mg PO BID 30 Days Qty: 60 1RF losartan 25 mg tablet 25 mg PO DAILY Qty: 30 3RF amlodipine 2.5 mg tablet 2.5 mg PO DAILY Qty: 30 3RF quetiapine 100 mg tablet 100 mg PO DAILY 0RF bupropion HCl 150 mg tablet extended release 24 hr 150 mg PO 0RF acarbose 50 mg tablet 50 mg PO BID 0RF loratadine 10 mg tablet 10 mg PO DAILY 0RF trifluoperazine 2 mg tablet 2 mg PO DAILY 0RF clonazepam 1 mg tablet 1 mg PO DAILY 0RF chlorpromazine 100 mg tablet 100 mg PO BID 0RF Adult One Daily Multivitamin 0.4 mg tablet PO 0RF Lantus Solostar U-100 Insulin 100 unit/mL (3 mL) insulin pen 10 unit subcut QPM 0RF fluticasone propion-salmeterol [Advair Diskus] 250-50 mcg/dose blister with device 1 inh inhalation BID 0RF tamsulosin [Flomax] 0.4 mg capsule 0.4 mg PO DAILY 0RF aspirin [Adult Low Dose Aspirin] 81 mg tablet,delayed release (DR/EC) 81 mg PO DAILY 0RF albuterol sulfate [ProAir HFA] 90 mcg/actuation HFA aerosol inhaler 2 puff inhalation Q6H PRN0RF Spiriva with HandiHaler 18 mcg capsule, w/inhalation device 1 cap inhalation DAILY 0RF Rx Instructions: puncture 1 cap using device; one dose = 2 inhalations methocarbamol 500 mg tablet 750 mg PO .EVERY 4 HOURS 0RF nicotine 21 mg/24 hr patch 24 hour 1 patch transdermal DAILY 0RF atorvastatin 80 mg tablet 80 mg PO DAILY 0RF pantoprazole 40 mg tablet,delayed release (DR/EC) 40 mg PO DAILY Qty: 30 3RF simethicone [Gas Relief (simethicone)] 180 mg capsule 180 mg PO BID PRN (Reason: abdominal distention) Qty: 60 4RF
[2021-12-28 17:35] LABS: COVID-19 Test Positive (Negative); IDNOW Serial# 16C4AD1C
[2021-12-28 17:36] LABS: D Dimer High Sensitivity 1053 NG/ML
--- NOTE | 2021-12-28 18:19 | PC.NURSE ---
Pt OOB to restroom with steady gait, RR even and unlabored. Pt COVID+ pending CTA of chest at this time. callbell within reach
[2021-12-28] MEDS: iohexoL 350 MG/ML 100 ML INFUS..BTL IV (18:53)
[2021-12-28 19:06] VITALS: BP 128/65; PULSE 58; RESP 20; TEMP 36.9; O2SAT 99
== END 2021-12-28 21:04 | disposition home or self-care (01) ==
PROVIDERS: Emergency Provider Emergency Medicine; PCP Internal Medicine
DX: U07.1 COVID-19 (principal); I10 Essential (primary) hypertension; E11.9 Type 2 diabetes mellitus without complications; I25.10 Atherosclerotic heart disease of native coronary artery without angina pectoris; J44.9 Chronic obstructive pulmonary disease, unspecified; Z95.1 Presence of aortocoronary bypass graft; Z95.5 Presence of coronary angioplasty implant and graft
CPT/HCPCS: 36415; 71045; 71275; 80048; 84484; 85025; 85379; 87635; 93005; 99283; 99284; 99285; Q9967

== ENCOUNTER → 2022-01-06 13:39 | Outpatient (BNVA) | payer OTHER, SELFPAY | PROVIDERS: PCP Internal Medicine; Visit Provider Internal Medicine Pulmonary Disease | DX: J44.9 Chronic obstructive pulmonary disease, unspecified (principal); R91.8 Other nonspecific abnormal finding of lung field | CPT/HCPCS: 99202 ==

== ENCOUNTER 2022-02-08 09:28 | Outpatient (REF) | payer OTHER, SELFPAY ==
--- NOTE | 2022-02-08 11:05 | PFT_ITS ---
INDICATION: Dyspnea. SPIROMETRY: FEV1 to FVC of 66% with an FEV1 of 1.54 L, which is 52% predicted. An FVC of 2.35 L, which is 61% predicted. No significant response to bronchodilators noted. Maximum voluntary ventilation 59% predicted. LUNG VOLUMES: Total lung capacity 81% predicted with an expiratory reserve volume of 12% predicted and residual volume of 114% predicted. DIFFUSION CAPACITY: DLCO 56% predicted. COMPARISONS: None. INTERPRETATION: There is an obstructive ventilatory defect consistent with moderate to severe COPD. No significant response to bronchodilators noted. Significant small airways disease noted. And a moderate decrease in maximum voluntary ventilation secondary to likely deconditioning. Lung volumes demonstrate a trend of air trapping and a significant decrease in the expiratory reserve volume. In addition to that, there is a moderate diffusion impairment secondary to underlying likely parenchymal changes from the COPD. Clinical correlation warranted. Cabrera Aguirre MD MR/MODL / [id number]
== END 2022-02-08 09:29 | disposition home or self-care (01) ==
LOC: HO.RESP 09:28
PROVIDERS: PCP Internal Medicine; Visit Provider Internal Medicine Pulmonary Disease
DX: J44.9 Chronic obstructive pulmonary disease, unspecified (principal)
CPT/HCPCS: 94060; 94727; 94729

== ENCOUNTER → 2022-02-22 09:26 | Outpatient (BNVA) | payer OTHER, SELFPAY | PROVIDERS: PCP Internal Medicine; Visit Provider Internal Medicine Pulmonary Disease | DX: R91.8 Other nonspecific abnormal finding of lung field (principal); J44.9 Chronic obstructive pulmonary disease, unspecified | CPT/HCPCS: 99212 ==

== ENCOUNTER 2022-04-12 09:12 | Day surgery (SDC) | payer OTHER, SELFPAY ==
--- NOTE | 2022-04-11 08:45 | HO.ANESPROP2 ---
Documented by User: Matilde Vega NP 04/11/22 08:53 HPI - Anesthesia Eval Consult details Narrative: 67yo M for Colonoscopy Brilinta for CAD/ Cath with JONNY 12/2020 (ok to stop preop per cardiology) [facility] Active Problems Active Problems: All Active Problems (Updated 04/06/22 @ 14:19 by Bhumika Mario, RN) Chest discomfort (Acute) COVID-19 (Acute) COPD (chronic obstructive pulmonary disease) (Acute) Pulmonary nodules (Acute) S/P cardiac catheterization (Acute ~12/2020) Stented coronary artery (Acute) Angina of effort (Acute) HLD (hyperlipidemia) (Acute) Coronary artery disease (Acute) HTN (hypertension) (Acute) Past Medical History Medical History (Updated 04/06/22 @ 14:19 by Bhumika Mario, MECHE) Angina of effort Arthritis COPD (chronic obstructive pulmonary disease) Coronary artery disease Diabetes mellitus, type 2 Dizziness HLD (hyperlipidemia) HTN (hypertension) Memory difficulties On anticoagulant therapy On beta russ at home Peripheral vascular disease Surgical History Surgical History H/O coronary artery bypass surgery S/P CABG x 3 (~09/2018) S/P cardiac cath (~08/2019) S/P cardiac cath (~04/2020) S/P cardiac catheterization (~12/2020) Stented coronary artery Social History Social History Alcohol intake: former Patient Tobacco Use Status: Current everyday Tobacco user Cigarette Packs Per Day: 0.5 Advance Directives: No Advance Directives Information Provided: Yes Meds Allergies Allergy/AdvReac Type Severity Reaction Status Date / Time Penicillins Allergy Mild RASH Verified 04/06/22 12:54 ciprofloxacin [From Cipro] Allergy Unknown RASH Verified 04/06/22 12:54 Home Medications Medication Instructions Recorded Confirmed Last Taken Type acarbose 50 mg tablet 50 mg PO BID 06/23/20 04/06/22 Unknown History albuterol sulfate 90 mcg/actuation 2 puff inhalation Q6H PRN Wheezing 06/23/20 04/06/22 Unknown History aerosol inhaler (ProAir HFA) aspirin 81 mg tablet,delayed 81 mg PO DAILY 06/23/20 04/06/22 Unknown History release (Adult Low Dose Aspirin) atorvastatin 80 mg tablet 80 mg PO DAILY 06/23/20 04/06/22 Unknown History chlorpromazine 100 mg tablet 100 mg PO BID 06/23/20 04/06/22 Unknown History clonazepam 1 mg tablet 1 mg PO DAILY 06/23/20 04/06/22 Unknown History insulin glargine 100 unit/mL (3 40 unit subcut QPM 06/23/20 04/06/22 Unknown History mL) subcutaneous pen (Lantus Solostar U-100 Insulin) loratadine 10 mg tablet 10 mg PO DAILY 06/23/20 04/06/22 Unknown History methocarbamol 500 mg tablet 750 mg PO .EVERY 4 HOURS 06/23/20 04/06/22 Unknown History multivitamin with minerals-folic tab PO 06/23/20 10/18/21 Unknown History acid 0.4 mg tablet (Adult One Daily Multivitamin) nicotine 21 mg/24 hr daily 1 patch transdermal DAILY 06/23/20 04/06/22 Unknown History transdermal patch tamsulosin 0.4 mg capsule (Flomax) 0.4 mg PO DAILY 06/23/20 04/06/22 Unknown History trifluoperazine 2 mg tablet 2 mg PO DAILY 06/23/20 04/06/22 Unknown History quetiapine 100 mg tablet 100 mg PO DAILY 11/22/20 04/06/22 Unknown History bupropion HCl 150 mg 24 hr tablet, 150 mg PO DAILY 10/18/21 04/06/22 Unknown History extended release albuterol sulfate 2.5 mg/3 mL 3 ml inhalation DIRECTED 04/06/22 04/06/22 Unknown History (0.083 %) solution for nebulization diclofenac sodium 1 % topical gel 1 ea topical BID 04/06/22 04/06/22 Unknown History dulaglutide 0.75 mg/0.5 mL 1 ea subcut QWEEK 04/06/22 04/06/22 Unknown History subcutaneous pen injector (Trulicity) Exam Exam Date and Time: April 11, 2022 0845 Pertinent Lab Results Pertinent Lab Results: Laboratory Tests 12/28/21 12/28/21 15:29 15:29 WBC 11.2 H Hgb 13.3 L Hct 40.3 L Plt Count 212 Sodium 141 Potassium 4.5 Chloride 108 Carbon Dioxide 22 BUN 17 H Creatinine 1.24 Narrative Narrative: EKG 12/2021 Vent. Rate : 085 BPM ? ? Atrial Rate : 085 BPM ?? P-R Int : 152 ms? QRS Dur : 096 ms ? ? QT Int : 390 ms ? ? ? P-R-T Axes : 080 063 -21 degrees ?? QTc Int : 464 ms ? Normal sinus rhythm Possible Left atrial enlargement Nonspecific ST and T wave abnormality Abnormal ECG When compared with ECG of 22-JUN-2021 11:23, Vent. rate has increased BY? 28 BPM QT has lengthened ECHO 2020 Conclusions: -? 1. Normal LV systolic function with wall motion abnormality ? with impaired relaxation filling pattern ? 2. Limited evaluation of cardiac valves with normal cardiac? ? ? valvular Doppler ? 3. No gross pericardial effusion ? PFT 01/2022 INTERPRETATION:? There is an obstructive ventilatory defect consistent with moderate to severe COPD.? No significant response to bronchodilators noted.? Significant small airways disease noted.? And a moderate decrease in maximum voluntary ventilation secondary to likely deconditioning.? Lung volumes demonstrate a trend of air trapping and a significant decrease in the expiratory reserve volume.? In addition to that, there is a moderate diffusion impairment secondary to underlying likely parenchymal changes from the COPD.? Clinical correlation warranted. Assessment and Plan Assessment Anesthesia Assessment: Chart Reviewed Documented by User: Amy Navas MD 04/12/22 09:41 [facility] Past Medical History Medical History (Updated 04/06/22 @ 14:19 by Bhumika Mario RN) Angina of effort Arthritis COPD (chronic obstructive pulmonary disease) Coronary artery disease Diabetes mellitus, type 2 Dizziness HLD (hyperlipidemia) HTN (hypertension) Memory difficulties On anticoagulant therapy On beta russ at home Peripheral vascular disease Family History Family history of problems with anesthesia: No Surgical History Surgical History H/O coronary artery bypass surgery S/P CABG x 3 (~09/2018) S/P cardiac cath (~08/2019) S/P cardiac cath (~04/2020) S/P cardiac catheterization (~12/2020) Stented coronary artery History of Problems with Anesthesia: No Social History Social History Alcohol intake: former Patient Tobacco Use Status: Current everyday Tobacco user Cigarette Packs Per Day: 0.5 Advance Directives: No Advance Directives Information Provided: Yes Meds Allergies Allergy/AdvReac Type Severity Reaction Status Date / Time Penicillins Allergy Mild RASH Verified 04/06/22 12:54 ciprofloxacin [From Cipro] Allergy Unknown RASH Verified 04/06/22 12:54 Home Medications Medication Instructions Recorded Confirmed Last Taken Type acarbose 50 mg tablet 50 mg PO BID 06/23/20 04/06/22 Unknown History albuterol sulfate 90 mcg/actuation 2 puff inhalation Q6H PRN Wheezing 06/23/20 04/06/22 Unknown History aerosol inhaler (ProAir HFA) aspirin 81 mg tablet,delayed 81 mg PO DAILY 06/23/20 04/06/22 Unknown History release (Adult Low Dose Aspirin) atorvastatin 80 mg tablet 80 mg PO DAILY 06/23/20 04/06/22 Unknown History chlorpromazine 100 mg tablet 100 mg PO BID 06/23/20 04/06/22 Unknown History clonazepam 1 mg tablet 1 mg PO DAILY 06/23/20 04/06/22 Unknown History insulin glargine 100 unit/mL (3 40 unit subcut QPM 06/23/20 04/06/22 Unknown History mL) subcutaneous pen (Lantus Solostar U-100 Insulin) loratadine 10 mg tablet 10 mg PO DAILY 06/23/20 04/06/22 Unknown History methocarbamol 500 mg tablet 750 mg PO .EVERY 4 HOURS 06/23/20 04/06/22 Unknown History multivitamin with minerals-folic tab PO 06/23/20 10/18/21 Unknown History acid 0.4 mg tablet (Adult One Daily Multivitamin) nicotine 21 mg/24 hr daily 1 patch transdermal DAILY 06/23/20 04/06/22 Unknown History transdermal patch tamsulosin 0.4 mg capsule (Flomax) 0.4 mg PO DAILY 06/23/20 04/06/22 Unknown History trifluoperazine 2 mg tablet 2 mg PO DAILY 06/23/20 04/06/22 Unknown History quetiapine 100 mg tablet 100 mg PO DAILY 11/22/20 04/06/22 Unknown History bupropion HCl 150 mg 24 hr tablet, 150 mg PO DAILY 10/18/21 04/06/22 Unknown History extended release albuterol sulfate 2.5 mg/3 mL 3 ml inhalation DIRECTED 04/06/22 04/06/22 Unknown History (0.083 %) solution for nebulization diclofenac sodium 1 % topical gel 1 ea topical BID 04/06/22 04/06/22 Unknown History dulaglutide 0.75 mg/0.5 mL 1 ea subcut QWEEK 04/06/22 04/06/22 Unknown History subcutaneous pen injector (Trulicity) Exam Airway Mallampati Class: II TM Dist: >3cm Neck ROM: Full Denture: Upper Heart: rrr Lungs: decreased rt side Assessment and Plan Assessment Anesthesia Assessment: Anesthesia Plan Discussed and Chart Reviewed Final Anesthetic Review Family History of Problems with Anesthesia: No History of Problems with Anesthesia: No NPO: Yes ASA Class: III Final Preanesthetic Review: No Changes in Pt Med Stat, Meds/Allgs Chart Reviewed and Consent Obtained/Reviewed Patient Risk: Intermediate Procedure Risk: Intermediate Anesthetic Plan Anesthetic Plan: MAC: Disposition: Standard PACU
[2022-04-12] MEDS: Sodium Phosphate,Mono-Dibasic 133 ML ENEMA PR (10:05)
[2022-04-12] MEDS: Lactated Ringers 1,000 ML 100 ML IVCONT (10:11)
[2022-04-12] MEDS: Albuterol Sulfate (0.083%) 2.5 MG/3 ML VIAL.NEB INHALE (10:11)
[2022-04-12 10:12] VITALS: BP 140/68; PULSE 78; RESP 16; TEMP 36; O2SAT 99
[2022-04-12 10:15] VITALS: BMI 27.9
--- NOTE | 2022-04-12 10:35 | P.HPSUR_ITS ---
Pre-Procedural Eval Section A Date of Service: 04/12/22 Section B Chief Complaint: screening Relevant Family History (Specify if Yes): No Relevant Social History: Tobacco Use Present Medications: see Short Stay Collaborative assessment Medical History: Significant History (Angina of effort Arthritis COPD (chronic obstructive pulmonary disease) Coronary artery disease Diabetes mellitus, type 2 Dizziness HLD (hyperlipidemia) HTN (hypertension) Memory difficulties On anticoagulant therapy On beta russ at home Peripheral vascular disease) History of Previous Operations: Relevant previous surgery/procedure and date(s) (H/O coronary artery bypass surgery S/P CABG x 3 (~09/2018) S/P cardiac cath (~08/2019) S/P cardiac cath (~04/2020) S/P cardiac catheterization (~12/2020) St ented coronary artery) Allergies: Allergies Allergy/AdvReac Type Severity Reaction Status Date / Time Penicillins Allergy Mild RASH Verified 04/06/22 12:54 ciprofloxacin [From Cipro] Allergy Unknown RASH Verified 04/06/22 12:54 Review of Systems Sugical H&P ROS: Negative: Constitution, Cardiovascular, Respiratory, Neurological, Psychiatric, Hem-Onc, Allergic/Immunologic, Gastrointestinal, Genitourinary, Musculoskeletal, Integumentary, Endocrine and Eyes/Ears/Nose/Throat Exam Surgical H&P Exam: Normal: HEENT, Normal: Heart, Normal: Lungs, Normal: Extremities, Normal: Abdomen, Normal: Skin and Normal: Neurological Plan Diagnosis/Plan: Unchanged I have reviewed the history and physical and performed a pertinent physical examination on my patient. No changes have occurred unless specified.
--- NOTE | 2022-04-12 10:37 | W.PM.OPN ---
Operative Note Operative Note Date of Service: 04/12/22 Narrative: Operative Information Procedure Description: Colonoscopy Indication: screening Anesthesia: MAC COLONOSCOPY Instrument: Olympus variable stiffness Adult scope 190L Colonoscopy Monitoring: Vital signs and clinical assessment, continuous EKG monitoring, Pulse oximetry, Carbon Dioxide monitoring and blood pressure monitoring were done throughout the procedure. Colon withdrawal time was 22 minutes. Procedure: The patient was placed in the left lateral decubitis position and pre-procedure medications were administered. After a digital rectal examination of the ano-rectum, the video colonoscope was inserted into the rectum and advanced through the colon to the cecum/TI. The colonoscope was slowly withdrawn in a retrograde panoramic fashion and the colon mucosa was carefully examined including a retroflexed view of the rectum. Findings and interventions are described below. Procedure Difficulty: moderate, unable to intubate TI due to looping and patient movement Findings: Terminal Ileum- not inutbated, ulceration noted around ileocecal valve, bx taken Cecum:normal Ascending Colon: normal Transverse Colon - superficial ulceration noted x 1 bx taken. 7-9 mm sessile polyp removed with cold snare Descending Colon:normal Sigmoid Colon: normal Rectum: Retroflexion with small internal hemorrhoids, grade I, 8-10 mm sessile polyp removed with cold snare Anorectum - normal Colon preparation: [place] Bowel Preparation Scale Right colon; 2 Transverse colon: 2 Left colon; 2 (0 = Unprepared colon segment with mucosa not seen due to solid stool that cannot be cleared. 1 = Portion of mucosa of the colon segment seen, but other areas of the colon segment not well seen due to staining, residual stool and/or opaque liquid. 2 = Minor amount of residual staining, small fragments of stool and/or opaque liquid, but mucosa of colon segment seen well. 3 = Entire mucosa of colon segment seen well with no residual staining, small fragments of stool or opaque liquid) Impression and Post Procedure Diagnosis: colonic ulceration polyp internal hemorrhoids Plan: High fiber diet leaflet Avoid straining at stool, epsom salts and sitz bath, anusol supps or cream Repeat Colonoscopy in 5 years or earlier if clinically indicated, depending on bx might need Ct enterogram, and further Ix for IBD, check nsaid hx Above findings were reviewed with the patient and relevant handouts were provided if indicated.
[2022-04-12 11:25] LABS: Glucose, Whole Blood 83 mg/dL (60-115)
[2022-04-12 11:35] VITALS: BP 105/54; PULSE 76; RESP 16; TEMP 36.4; O2SAT 100
[2022-04-12 11:50] VITALS: BP 121/61; PULSE 68; RESP 16; O2SAT 99
[2022-04-12 12:03] VITALS: BP 111/63; PULSE 66; RESP 16; TEMP 36.3; O2SAT 99
== END 2022-04-12 12:45 | disposition home or self-care (01) ==
PROVIDERS: PCP Internal Medicine; Visit Provider Internal Medicine Gastroenterology
PROC: 0DJD8ZZ Inspection of Lower Intestinal Tract, Via Natural or Artificial Opening Endoscopic (ICD-10-PCS; CPT 45378; principal; 2022-04-12 11:00)
DX: Z12.11 Encounter for screening for malignant neoplasm of colon (principal); Z86.010 Personal history of colon polyps; K51.80 Other ulcerative colitis without complications; K62.1 Rectal polyp; K64.0 First degree hemorrhoids; K21.9 Gastro-esophageal reflux disease without esophagitis; K59.00 Constipation, unspecified; J44.9 Chronic obstructive pulmonary disease, unspecified; I25.10 Atherosclerotic heart disease of native coronary artery without angina pectoris; Z95.1 Presence of aortocoronary bypass graft; Z98.61 Coronary angioplasty status; R42 Dizziness and giddiness; I10 Essential (primary) hypertension; E11.9 Type 2 diabetes mellitus without complications; F17.210 Nicotine dependence, cigarettes, uncomplicated; Z79.82 Long term (current) use of aspirin; Z79.01 Long term (current) use of anticoagulants; Z79.899 Other long term (current) drug therapy; Z88.0 Allergy status to penicillin; Z88.1 Allergy status to other antibiotic agents
CPT/HCPCS: 45385; 45380; 82947; 88305

== ENCOUNTER 2022-04-20 09:01 | Observation (INO) | payer OTHER, SELFPAY ==
--- NOTE | ~2022-04-20 | US_ITS ---
EXAMINATION: US ABDOMEN LIMITED CLINICAL INFORMATION: Follow-up subcapsular hematoma spleen. COMPARISON: April 20, 2022 TECHNIQUE: Real-time imaging of the spleen. FINDINGS: There is again noted to be a subcapsular fluid collection about the lateral aspect of the spleen measuring up to approximately 8 mm diameter which is similar in appearance to previous CT scan of April 21, 2022. US/US abdomen limited IMPRESSION: Stable subcapsular splenic fluid collection.
--- NOTE | ~2022-04-20 | CT_ITS ---
EXAMINATION: CT ABDOMEN AND PELVIS WITHOUT CONTRAST CLINICAL INFORMATION: Abdominal pain status post colonoscopy. COMPARISON: CT scan of the abdomen and pelvis dated 04/23/2020, chest CTA dated 12/28/2021. TECHNIQUE: Multidetector volumetric imaging was performed from the superior aspect of the liver through the pubic symphysis. Sagittal and coronal reformatted images were obtained on the technologist's workstation. Lack of intravenous contrast limits visceral evaluation. This CT examination was performed using dose optimization techniques as appropriate, variously including the following: *Automated exposure control *Adjustment of mA and/or kV according to patient size (this includes techniques or standardized protocols for targeted exams where dose is matched to indication/reason for exam; i.e. extremities or head) *Use of iterative reconstruction technique DLP: 482 mGy-cm FINDINGS: LUNG BASES: The visualized lung bases are unremarkable. LIVER, GALLBLADDER, AND BILIARY TREE: Unremarkable. PANCREAS: Unremarkable. SPLEEN: Diabetic, subcapsular low-attenuation is seen along the lateral margin of the spleen measuring approximately 10 cm in length and 2 0.8 cm in width (image 60, series 6; image 18, series 2). ADRENAL GLANDS: Unremarkable. KIDNEYS AND URETERS: Nonobstructing punctate calcifications are seen bilaterally. No hydroureteronephrosis. BLADDER: Unremarkable. GASTROINTESTINAL TRACT: The stomach and small bowel are unremarkable. The appendix is not confidently identified. No evidence for acute appendicitis. Mild diverticulosis is seen in the sigmoid colon. Mild mural thickening is seen in the mid one third of the sigmoid colon without significant pericolonic infiltrative changes. Trace dependent fluid in the pelvis. No pneumoperitoneum. ABDOMINAL WALL: No central mass repair without abnormality. LYMPH NODES: No lymphadenopathy. VASCULAR: Unremarkable. PELVIC VISCERA: Mild prostatomegaly. OSSEOUS STRUCTURES: Unremarkable. CT/CT abdomen pelvis wo con IMPRESSION: 1. Subcapsular crescentic low-attenuation elongated focus laterally in the spleen was not seen on previous studies. A subcapsular collection/hematoma cannot be excluded. This should be monitored with serial splenic ultrasound to rule out enlarging collection. 2. Mild diverticulosis in the sigmoid colon. There is mild mural thickening in the mid one third of the sigmoid colon without pericolonic infiltrative changes. Trace adjacent dependent pelvic free fluid is seen. Very mild acute diverticulitis cannot be excluded. No evidence for perforation. No pneumoperitoneum. 3. Nonobstructing intrarenal calculi/calcifications bilaterally. 4. Mild prostatomegaly. This critical result was discussed with Shelby Roberto at 2:00 PM on 04/20/2022 and it was ascertained that the content and urgency of the report was understood at the time of direct communication.
--- NOTE | ~2022-04-20 | XR_ITS ---
EXAMINATION: XR CHEST CLINICAL INFORMATION: Chest pain COMPARISON: Previous chest x-ray most recent December 2021 TECHNIQUE: Frontal view of the chest was obtained. FINDINGS: The cardiac and mediastinal contours are stable. There are post-CABG changes. The lungs are clear. There is no pleural effusion or pneumothorax. There are degenerative changes of the spine. XR/XR chest 1V IMPRESSION: No evidence for acute disease in the chest.
[2022-04-20 09:06] VITALS: BP 129/64; PULSE 67; RESP 18; TEMP 36.6; BMI 33.5
--- NOTE | 2022-04-20 09:10 | ECG_ITS ---
Test Reason : cp Blood Pressure : / mmHG Vent. Rate : 066 BPM Atrial Rate : 066 BPM P-R Int : 150 ms QRS Dur : 094 ms QT Int : 414 ms P-R-T Axes : 063 045 -48 degrees QTc Int : 434 ms Normal sinus rhythm T wave abnormality, consider anterolateral ischemia Abnormal ECG When compared with ECG of 28-DEC-2021 15:16, T wave inversion more evident in Anterior leads Referred By: Generic ED Physician Electronically Signed By:ROSMERY LIANG
--- NOTE | 2022-04-20 10:18 | ED_ITS ---
HPI - Chest Pain General Chief Complaint: Chest Pain Stated Complaint: chest pain headache back pain diff breathing Time Seen by Provider: 04/20/22 10:18 Source: patient Mode of arrival: ambulatory Limitations: no limitations History of Present Illness HPI narrative: Patient is a 67 year old male presenting to the emergency department today with abdominal pain after a colonoscopy. Patient states that he had a colonoscopy 8 days ago and has not been able to have a bowel movement for 5 days. Patient s tates that his lower abdomen hurts. Patient denies any dizziness, lightheadedness, nausea, vomiting, fever, chills, blurry vision, double vision, loss of vision, chest pain, difficulty breathing, shortness of breath, back pain, night sweats, pain with urination, increased urinary frequency, increased urinary urgency, blood in his urine or stool, syncope or a near syncopal episode, recent trauma or falls, bowel incontinence, bladder incontinence, bladder retention, or any other complaints at this time. Onset (ago): day(s) (5) Pain radiation: none Severity: mild Pain scale (0-10): 3 Quality: aching and dull Relieving factors: nothing Exacerbating factors: nothing Treatment prior to arrival: none Related Data Home Medications Medication Instructions Recorded Confirmed acarbose 50 mg tablet 50 mg PO BID 06/23/20 04/20/22 albuterol sulfate 90 mcg/actuation 2 puff inhalation Q6H PRN Wheezing 06/23/20 04/20/22 aerosol inhaler (ProAir HFA) aspirin 81 mg tablet,delayed 81 mg PO DAILY 06/23/20 04/20/22 release (Adult Low Dose Aspirin) atorvastatin 80 mg tablet 80 mg PO DAILY 06/23/20 04/20/22 clonazepam 1 mg tablet 1 mg PO DAILY 06/23/20 04/20/22 insulin glargine 100 unit/mL (3 50 unit subcut QPM 06/23/20 04/20/22 mL) subcutaneous pen (Lantus Solostar U-100 Insulin) loratadine 10 mg tablet 10 mg PO DAILY 06/23/20 04/20/22 multivitamin with minerals-folic 1 tab PO DAILY 06/23/20 04/20/22 acid 0.4 mg tablet (Adult One Daily Multivitamin) nicotine 21 mg/24 hr daily 1 patch transdermal DAILY 06/23/20 04/20/22 transdermal patch quetiapine 100 mg tablet 100 mg PO DAILY 11/22/20 04/20/22 bupropion HCl 150 mg 24 hr tablet, 150 mg PO DAILY 10/18/21 04/20/22 extended release albuterol sulfate 2.5 mg/3 mL 3 ml inhalation DIRECTED 04/06/22 04/20/22 (0.083 %) solution for nebulization diclofenac sodium 1 % topical gel 1 ea topical BID 04/06/22 04/20/22 dulaglutide 0.75 mg/0.5 mL 1 ea subcut QWEEK 04/06/22 04/20/22 subcutaneous pen injector (Trulicity) acetaminophen 650 mg mg PO 04/20/22 tablet,extended release (Arthritis Pain Relief (acetaminophen) ER) clobetasol 0.05 % topical ointment 1 applic topical BID 04/20/22 04/20/22 fluticasone 250 mcg-salmeterol 50 1 puff inhalation BID 04/20/22 04/20/22 mcg/dose blistr powdr for inhalation (Clau Manning) Previous Rx's Medication Instructions Recorded evolocumab 140 mg/mL subcutaneous 140 mg subcut Q2W 90 days #7 mL 04/12/21 pen injector (Sandor Espinoza) metoprolol tartrate 50 mg tablet 50 mg PO BID 90 days #180 tabs 11/21/21 umeclidinium 62.5 mcg-vilanterol 1 inh inhalation DAILY 30 days #1 01/06/22 25 mcg/actuation powdr for ea inhalation (Anoro Ellipta) pantoprazole 40 mg tablet,delayed 40 mg PO DAILY #30 tabs 01/17/22 release isosorbide mononitrate 120 mg 120 mg PO QAM #30 tabs 02/10/22 tablet,extended release 24 hr sennosides 8.6 mg tablet (Omayra-cee) 17.2 mg PO BEDTIME 30 days #60 tabs 02/10/22 simethicone 180 mg capsule (Gas 180 mg PO BID PRN abdominal 02/10/22 Relief (simethicone)) distention #60 caps ticagrelor 90 mg tablet (Brilinta) 90 mg PO BID 30 days #60 tabs 02/10/22 theophylline 400 mg 400 mg PO DAILY 30 days #30 tabs 02/22/22 tablet,extended release 24 hr ezetimibe 10 mg tablet 10 mg PO DAILY #30 tabs 03/08/22 amlodipine 2.5 mg tablet 2.5 mg PO DAILY 90 days #90 tabs 04/05/22 losartan 25 mg tablet 25 mg PO DAILY #90 tabs 04/05/22 nitroglycerin 0.4 mg sublingual 0.4 mg sublingual Q5M PRN chest 04/05/22 tablet pain #25 ea ranolazine 1,000 mg 1,000 mg PO BID 90 days #180 tabs 04/05/22 tablet,extended release,12 hr (Ranexa) bisacodyl 5 mg tablet,delayed 10 mg PO ONCE Bowel Preparation 1 04/06/22 release (Dulcolax (bisacodyl)) day #2 tabs Allergies Allergy/AdvReac Type Severity Reaction Status Date / Time Penicillins Allergy Mild RASH Verified 04/06/22 12:54 ciprofloxacin [From Cipro] Allergy Unknown RASH Verified 04/06/22 12:54 Review of Systems Constitutional: Constitutional: Reports no additional constitutional complaints, Denies chills, Denies fever(s) and Denies night sweats Eyes: Eyes: Reports no additional eye complaints, Denies blurry vision, Denies change in vision, Denies diplopia, Denies eye discharge, Denies loss of vision and Denies eye pain ENT: Denies dizziness Cardiovascular: Cardiovascular: Reports no additional cardiovascular complaints, Denies chest pain, Denies lightheadedness, Denies Loss of Consciousness and Denies dyspnea Respiratory: Respiratory: Reports no additional respiratory complaints and Denies dyspnea Gastrointestinal: Gastrointestinal: Reports no additional gastrointestinal complaints, Reports abdominal pain, Denies melena, Denies hematochezia, Reports change in bowel habits, Denies change in stool character and Reports constipation Genitourinary: Genitourinary: Reports no additional male genitourinary complaints, Denies hematuria, Denies oliguria, Denies difficulty urinating, Denies dysuria, Denies urinary frequency, Denies urinary hesitancy, Denies urina ry incontinence and Denies urinary urgency Musculoskeletal: Musculoskeletal: Reports no additional musculoskeletal complaints, Denies numbness and Denies tingling Neurologic: Denies dizziness, Denies loss of vision, Denies numbness and Denies tingling Psychiatric: Psychiatric: Reports no additional psychiatric complaints Endocrine: Endocrine: Reports no additional endocrine complaints Hematologic/Lymphatic: Hematologic/Lymphatic: Reports no additional hematologic/lymphatic complaints Allergic/Immunologic: Allergic/Immunologic: Reports no additional allergic/immunologic complaints PMFSH Past Medical History Attestation statement: The following information was validated with the patient. Source: old records reviewed Medical History Abnormal CT scan, gastrointestinal tract Angina of effort Arthritis COPD (chronic obstructive pulmonary disease) Coronary artery disease Diabetes mellitus, type 2 Dizziness HLD (hyperlipidemia) HTN (hypertension) Memory difficulties On anticoagulant therapy On beta russ at home Peripheral vascular disease Surgical History H/O coronary artery bypass surgery S/P CABG x 3 (~09/2018) S/P cardiac cath (~08/2019) S/P cardiac cath (~04/2020) S/P cardiac catheterization (~12/2020) Stented coronary artery Social History Social History Alcohol intake: former Patient Tobacco Use Status: Current everyday Tobacco user Tobacco use type: Cigarette Cigarette Packs Per Day: 0.5 Cigarettes Per Day: 7 Advance Directives: No Advance Directives Information Provided: No Physical Exam Vital Signs: Vital Signs: Last Vital Signs Temp 98 F 04/20/22 09:06 Pulse 57 04/20/22 10:52 Resp 12 04/20/22 10:52 BP 118/55 L 04/20/22 10:52 Pulse Ox 99 04/20/22 10:52 O2 Del Method 04/20/22 10:52 BMI result Body Mass Index 33.5 Const: General: cooperative, no acute distress, alert and awake Nutritional Appearance: well nourished Orientation/consciousness: patient oriented x3 Limitations: no limitations HEENT: Head: Yes normal to inspection and Yes atraumatic Ears: hearing grossly normal bilaterally and external ears normal General nose exam: Normal external nose present, no nasal discharge noted and no epistaxis Face and sinus: Yes normal facial exam, No abrasion and No laceration Mouth: Normal oral and palatal mucosa present, no drooling and no muffled voice Eyes: General: appearance normal, both eyes and all related structures Periorbital: periorbital findings normal Eyelids: Yes eyelids normal Conjunctivae: conjunctivae normal Pupils: Equal, round and reactive pupils present EOM: EOMs intact bilaterally Neck: Neck: Yes normal visual inspection, Yes full ROM and Yes no ly mphadenopathy Chest: Chest palpation & inspection: normal inspection of the chest Resp: Effort & Inspection: normal respiratory effort and able to speak in complete sentences Auscultation: clear to auscultation bilaterally Cardio: Rate: regular rate Rhythm: regular rhythm GI: Inspection: Yes normal to inspection Palpation (GI): Soft to palpation, not firm, Tenderness to palpation present (GI) in the LLQ and in the RLQ and no guarding Neuro: General: patient oriented x3 and moves all extremities Cranial nerves: Yes Equal, round and reactive pupils present Cognition (Neuro): normal cognition Motor exam (neuro): 5/5 motor strength present throughout Sensory Exam: Normal double simultaneous stimulation for sensation Coor dination: [id number] test normal Extrem: General: Yes normal to inspection, Yes full ROM and Yes capillary refill normal Psych: Appearance: grossly normal Mental Status: mental status grossly normal Affect: normal affect Attitude: cooperative Thought process: Normal thought process present Thought content: Normal thought content present Insight: Good insight present (Psych) MDM - Chest Pain MDM Narrative Medical decision making narrative: Patient is a 67 year old male presenting to the emergency department today with abdominal pain. Patient was initially triaged with chest pain and SOB however, the patient denied both of these things to me, multiple times. Patient was adamant his only complaint was abdominal pain. Patient's physical exam showed mild tenderness to palpation of the bilateral lower abdomen but was otherwise unremarkable. Patient's blood work was unremarkable. Patient's EKG was unremar kable. Patient's abdominal CT showed a new subcapsular collection/hematoma that the radiologist speculates could be secondary to a colonoscopy and should be monitored with serial US. I called and spoke to Dr. Stanley, the surgeon director foundation, who agreed to consult on the case. I spoke to Dr. Allen who agreed to hospital admission. I explained my physical exam findings as well as all test results to the patient. I answered all questions asked by the patient. Patient verbalized agreement and understanding with this treatment plan and admission. Medical Records Data Attestation: I reviewed the patient's medical records. Lab Data Attestation: I reviewed the patient's lab results. Result diagrams: 08/25/22 11:06 04/20/22 11:06 Labs: Lab Results 04/20/22 04/20/22 04/20/22 Range/Units 11:06 11:06 11:06 WBC 6.0 (4.8-10.8) X10*3/uL RBC 3.95 L (4.60-5.80) X10*6/uL Hgb 13.2 L (14.0-18.0) g/dl Hct 37.9 L (42.0-52.0) % MCV 95.9 (80.0-98.0) fL MCH 33.4 H (27.0-33.0) pg MCHC 34.8 (31.0-36.0) g/dl RDW 12.9 (11.0-16.0) % Plt Count 189 (160-400) X10*3/uL MPV 10.0 (9.4-12.4) fL Absolute Nucleated RBC 0.000 (0.0-0.012) X10*3/uL Nucleated RBC % (auto) 0.0 (0.0-0.2) /100WBC Sodium (135-145) mmol/L Potassium (3.3-5.1) mmol/L Chloride (96-108) mmol/L Carbon Dioxide (22-29) mmol/L Anion Gap (12-20) BUN (9-16) mg/dL Creatinine (0.5-1.4) mg/dL Estim Creat Clear Calc Estimated GFR Random Glucose (60-115) mg/dL Calcium (8.4-10.2) mg/dL Total Bilirubin (0.0-1.0) mg/dL AST (5-37) U/L ALT (0-40) U/L Alkaline Phosphatase (39-117) U/L Troponin I High Sens < 3.5 (<3.5-35.0) ng/L Total Protein (6.5-8.0) g/dL Albumin (3.5-5.0) g/dL COVID-19 ([facility]) Negative (Negative) COVID-19 Clin Com See Note 04/20/22 Range/Units 11:06 WBC (4.8-10.8) X10*3/uL RBC (4.60-5.80) X10*6/uL Hgb (14.0-18.0) g/dl Hct (42.0-52.0) % MCV (80.0-98.0) fL MCH (27.0-33.0) pg MCHC (31.0-36.0) g/dl RDW (11.0-16.0) % Plt Count (160-400) X10*3/uL MPV (9.4-12.4) fL Absolute Nucleated RBC (0.0-0.012) X10*3/uL Nucleated RBC % (auto) (0.0-0.2) /100WBC Sodium 142 (135-145) mmol/L Potassium 4.3 (3.3-5.1) mmol/L Chloride 110 H (96-108) mmol/L Carbon Dioxide 24 (22-29) mmol/L Anion Gap 12 (12-20) BUN 13 (9-16) mg/dL Creatinine 1.04 (0.5-1.4) mg/dL Estim Creat Clear Calc 59.6 Estimated GFR > 60 Random Glucose 78 D (60-115) mg/dL Calcium 8.9 (8.4-10.2) mg/dL Total Bilirubin 0.7 (0.0-1.0) mg/dL AST 21 (5-37) U/L ALT 16 (0-40) U/L Alkaline Phosphatase 75 (39-117) U/L Troponin I High Sens (<3.5-35.0) ng/L Total Protein 5.8 L (6.5-8.0) g/dL Albumin 3.8 (3.5-5.0) g/dL COVID-19 ([facility]) (Negative) COVID-19 Clin Com Imaging Data [address] scan - abdomen: Attestation: I personally reviewed and interpreted this imaging study as follows: My impression: New splenic hematoma. Radiologist's impression: EXAMINATION: CT ABDOMEN AND PELVIS WITHOUT CONTRAST? CLINICAL INFORMATION: Abdominal pain status post colonoscopy.? COMPARISON: CT scan of the abdomen and pelvis dated 04/23/2020, chest CTA dated 12/28/2021. TECHNIQUE: Multidetector volumetric imaging was performed from the superior aspect of the liver through the pubic symphysis. Sagittal and coronal reformatted images were obtained on the technologist's workstation. Lack of intravenous contrast limits visceral evaluation. This CT examination was performed using dose optimization techniques as appropriate, variously including the following: *Automated exposure control *Adjustment of mA and/or kV according to patient size (this includes techniques or standardized protocols for targeted exams where dose is matched to indication/reason for exam; i.e. extremities or head) *Use of iterative reconstruction technique DLP: 482 mGy-cm FINDINGS: LUNG BASES: The visualized lung bases are unremarkable.? LIVER, GALLBLADDER, AND BILIARY TREE: Unremarkable. PANCREAS: Unremarkable.? SPLEEN: Diabetic, subcapsular low-attenuation is seen along the lateral margin of the spleen measuring approximately 10 cm in length and 2 0.8 cm in width (image 60, series 6; image 18, series 2). ADRENAL GLANDS: Unremarkable.? KIDNEYS AND URETERS: Nonobstructing punctate calcifications are seen bilaterally. No hydroureteronephrosis. BLADDER: Unremarkable.? GASTROINTESTINAL TRACT: The stomach and small bowel are unremarkable. The appendix is not confidently identified. No evidence for acute appendicitis. Mild diverticulosis is seen in the sigmoid colon. Mild mural thickening is seen in the mid one third of the sigmoid colon without significant pericolonic infiltrative changes. Trace dependent fluid in the pelvis. No pneumoperitoneum. ABDOMINAL WALL: No central mass repair without abnormality.? LYMPH NODES: No lymphadenopathy. VASCULAR: Unremarkable. PELVIC VISCERA: Mild prostatomegaly.? OSSEOUS STRUCTURES: Unremarkable.? CT/CT abdomen pelvis wo con IMPRESSION: ? 1. Subcapsular crescentic low-attenuation elongated focus laterally in the spleen was not seen on previous studies. A subcapsular collection/hematoma cannot be excluded. This should be monitored with serial splenic ultrasound to rule out enlarging collection. 2. Mild diverticulosis in the sigmoid colon. There is mild mural thickening in the mid one third of the sigmoid colon without pericolonic infiltrative changes. Trace adjacent dependent pelvic free fluid is seen. Very mild acute diverticulitis cannot be excluded. No evidence for perforation. No pneumoperitoneum. 3. Nonobstructing intrarenal calculi/calcifications bilaterally. 4. Mild prostatomegaly. ? This critical result was discussed with Shelby Roberto at 2:00 PM on 04/20/2022 and it was ascertained that the content and urgency of the report was understood at the time of direct communication. Dictated By: Jarvis Rodgers MD Signed By: Electronically signed by Jarvis Rodgers MD 04/20/22 1406 Chest x-ray: Attestation: I personally reviewed and interpreted this imaging study as follows: My impression: No acute process. Radiologist's impression: EXAMINATION: XR CHEST CLINICAL INFORMATION: Chest pain COMPARISON: Previous chest x-ray most recent December 2021 TECHNIQUE: Frontal view of the chest was obtained. FINDINGS: The cardiac and mediastinal contours are stable. There are post-CABG changes. The lungs are clear. There is no pleural effusion or pneumothorax. There are degenerative changes of the spine. XR/XR chest 1V IMPRESSION: No evidence for acute disease in the chest. ? Dictated By: Fanny Burris MD Signed By: Electronically signed by Fanny Burris MD 04/20/22 1133 ECG Data ECG #1: Attestation: I personally reviewed and interpreted this ECG as follows: ECG interpretation date: 04/20/22 ECG interpretation time: 09:13 Prior ECG tracings: available for review Interpretation: Vent. Rate: 066 BPM ? ? Atrial Rate: 066 BPM P-R Int: 150 ms? QRS Dur: 094 ms QT Int: 414 ms ? ? ? P-R-T Axes: 063 045 -48 degrees QTc Int: 434 ms ? Normal sinus rhythm T wave abnormality, consider anterolateral ischemia Abnormal ECG When compared with ECG of 28-DEC-2021 15:16, T wave inversion more evident in Anterior leads? Electronically Signed By:ROSMERY ZARCO DOFACP Dictated By: Rosmery Zarco DO Signed By: Electronically signed by Rosmery Zarco DO 04/20/22 1658 Critical Care Time Critical Care Time Critical Care Time: Yes Total Critical Care Time: 30 Attestation: I spent 30 minutes of Critical Care Time with this patient. This does not include time spent on separately reported billable procedures. 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
[2022-04-20 10:52] VITALS: BP 118/55; PULSE 57; RESP 12; O2SAT 99
[2022-04-20 11:15] LABS: Hematocrit 37.9 % (42.0-52.0); Hemoglobin 13.2 g/dl (14.0-18.0); Mean Corpuscular HGB Conc 34.8 g/dl (31.0-36.0); Mean Corpuscular Hemoglobin 33.4 pg (27.0-33.0); Mean Corpuscular Volume 95.9 fL (80.0-98.0); Platelet Count 189 X10*3/uL (160-400); Red Blood Count 3.95 X10*6/uL (4.60-5.80); Red Cell Distribution Width 12.9 % (11.0-16.0)
[2022-04-20 11:28] LABS: Alanine Aminotransferase 16 U/L (0-40); Albumin Level 3.8 g/dL (3.5-5.0); Alkaline Phosphatase 75 U/L (39-117); Anion Gap 12 (12-20); Aspartate Amino Transferase 21 U/L (5-37); Bilirubin Total 0.7 mg/dL (0.0-1.0); Blood Urea Nitrogen 13 mg/dL (9-16); Calcium 8.9 mg/dL (8.4-10.2); Carbon Dioxide 24 mmol/L (22-29); Chloride 110 mmol/L (96-108); Creatinine Clr Calc Pharmacy 59.6; Estimated Glomerular Filt Rate > 60; Glucose Random 78 mg/dL (60-115); Potassium 4.3 mmol/L (3.3-5.1); Sodium 142 mmol/L (135-145); Total Protein 5.8 g/dL (6.5-8.0)
[2022-04-20 11:32] LABS: Troponin-I High Sensitivity < 3.5 ng/L (<3.5-35.0)
[2022-04-20 11:34] LABS: COVID-19 Test Negative (Negative)
[2022-04-20] MEDS: iohexoL 350 MG/ML 100 ML INFUS..BTL 85 ML IV (11:56)
--- NOTE | 2022-04-20 15:43 | PM.CNGS ---
History of Present Illness Consult details Consult date: 04/20/22 Narrative: 67-year-old male referred to me because of a capsular tear on the spleen. He had undergone colonoscopy on 04/12/2022. He was described to have difficult looping and the cecum was therefore not intubated. He did have some focal status the transverse colon. He says that since his colonoscopy, he has been having problems with his bowel movements. He said he had been having diarrhea 1st days but now has been constipated for about 2-3 days. He describes having back pain as well. He also says that he has some pain on the left side of his abdomen mostly in lower part, extending to the chest area. He denies seeing blood per rectum Review of Systems Constitutional: Constitutional: Denies chills and Denies fever(s) Cardiovascular: Cardiovascular: Reports chest pain, Denies dyspnea and Denies dyspnea on exertion Respiratory: Respiratory: Denies cough, Denies dyspnea and Denies dyspnea on exertion Gastrointestinal: Gastrointestinal: Denies hematochezia, Denies change in bowel habits and Reports constipation Genitourinary: Genitourinary: Denies hematuria and Denies difficulty urinating Musculoskeletal: Musculoskeletal: Denies back pain and Denies limited range of motion Neurologic: Denies focal weakness and Denies convulsions Psychiatric: Psychiatric: Denies depression and Denies mood swings PMFSH Past Medical History Medical History Abnormal CT scan, gastrointestinal tract Angina of effort Arthritis COPD (chronic obstructive pulmonary disease) Coronary artery disease Diabetes mellitus, type 2 Dizziness HLD (hyperlipidemia) HTN (hypertension) Memory difficulties On anticoagulant therapy On beta russ at home Peripheral vascular disease Surgical History Surgical History H/O coronary artery bypass surgery S/P CABG x 3 (~09/2018) S/P cardiac cath (~08/2019) S/P cardiac cath (~04/2020) S/P cardiac catheterization (~12/2020) Stented coronary artery Social History Social History Household Members: Children Housing: House Alcohol intake: former Patient Tobacco Use Status: Current everyday Tobacco user Tobacco use type: Cigarette Cigarette Packs Per Day: 1 Cigarettes Per Day: 20.0 service: No Current occupational status: disabled Meds Allergies Allergy/AdvReac Type Severity Reaction Status Date / Time Penicillins Allergy Mild RASH Verified 04/26/22 09:54 ciprofloxacin [From Cipro] Allergy Unknown RASH Verified 04/26/22 09:54 Active Medications: Current Medications Pharmacy Consult (Consult Rx Perform Med Rec) 1 each MISCELLANE ONCE PRN PRN Reason: Consult order Pharmacy Consult (Consult Rx Perform Med Rec) 1 each MISCELLANE ONCE PRN PRN Reason: Consult order Home Medications Medication Instructions Recorded Confirmed Last Taken Type acarbose 50 mg tablet 50 mg PO BID 06/23/20 04/20/22 Unknown History albuterol sulfate 90 mcg/actuation 2 puff inhalation Q6H PRN Wheezing 06/23/20 04/20/22 Unknown History aerosol inhaler (ProAir HFA) aspirin 81 mg tablet,delayed 81 mg PO DAILY 06/23/20 04/20/22 04/10/22 History release (Adult Low Dose Aspirin) atorvastatin 80 mg tablet 80 mg PO DAILY 06/23/20 04/20/22 Unknown History clonazepam 1 mg tablet 1 mg PO DAILY 06/23/20 04/20/22 Unknown History insulin glargine 100 unit/mL (3 50 unit subcut QPM 06/23/20 04/20/22 Unknown History mL) subcutaneous pen (Lantus Solostar U-100 Insulin) loratadine 10 mg tablet 10 mg PO DAILY 06/23/20 04/20/22 Unknown History multivitamin with minerals-folic 1 tab PO DAILY 06/23/20 04/20/22 Unknown History acid 0.4 mg tablet (Adult One Daily Multivitamin) nicotine 21 mg/24 hr daily 1 patch transdermal DAILY 06/23/20 04/20/22 Unknown History transdermal patch quetiapine 100 mg tablet 100 mg PO DAILY 11/22/20 04/20/22 Unknown History bupropion HCl 150 mg 24 hr tablet, 150 mg PO DAILY 10/18/21 04/20/22 Unknown History extended release albuterol sulfate 2.5 mg/3 mL 3 ml inhalation DIRECTED 04/06/22 04/20/22 Unknown History (0.083 %) solution for nebulization diclofenac sodium 1 % topical gel 1 ea topical BID 04/06/22 04/20/22 Unknown History dulaglutide 0.75 mg/0.5 mL 1 ea subcut QWEEK 04/06/22 04/20/22 Unknown History subcutaneous pen injector (Trulicity) acetaminophen 650 mg mg PO 04/20/22 Unknown History tablet,extended release (Arthritis Pain Relief (acetaminophen) ER) clobetasol 0.05 % topical ointment 1 applic topical BID 04/20/22 04/20/22 Unknown History fluticasone 250 mcg-salmeterol 50 1 puff inhalation BID 04/20/22 04/20/22 Unknown History mcg/dose blistr powdr for inhalation (Wixela Inhub) Physical Exam Vital Signs: Vital Signs: Last Vital Signs Temp 98 F 04/20/22 09:06 Pulse 57 04/20/22 10:52 Resp 12 04/20/22 10:52 BP 118/55 L 04/20/22 10:52 Pulse Ox 99 04/20/22 10:52 O2 Del Method 04/20/22 10:52 BMI result Body Mass Index 33.5 Const: General: comfortable and no acute distress Orientation/consciousness: patient oriented x3 Neck: Neck: Yes no lymphadenopathy Resp: Auscultation: clear to auscultation bilaterally Cardio: Rhythm: regular rhythm GI: Palpation (GI): Soft to palpation, nontender and no guarding Neuro: General: patient oriented x3 Results Labs Result diagrams: 04/22/22 06:28 04/21/22 07:08 Labs: Abnormal lab results 04/20/22 04/20/22 Range/Units 11:06 11:06 RBC 3.95 L (4.60-5.80) X10*6/uL Hgb 13.2 L (14.0-18.0) g/dl Hct 37.9 L (42.0-52.0) % MCH 33.4 H (27.0-33.0) pg Chloride 110 H (96-108) mmol/L Total Protein 5.8 L (6.5-8.0) g/dL Short CBC 04/20/22 Range/Units 11:06 WBC 6.0 (4.8-10.8) X10*3/uL Hgb 13.2 L (14.0-18.0) g/dl Hct 37.9 L (42.0-52.0) % Plt Count 189 (160-400) X10*3/uL BMP 04/20/22 11:06 Sodium 142 Potassium 4.3 Chloride 110 H Carbon Dioxide 24 BUN 13 Creatinine 1.04 Calcium 8.9 Liver Function 04/20/22 Range/Units 11:06 Total Bilirubin 0.7 (0.0-1.0) mg/dL AST 21 (5-37) U/L ALT 16 (0-40) U/L Alkaline Phosphatase 75 (39-117) U/L Albumin 3.8 (3.5-5.0) g/dL All other labs normal. Imaging Additional studies: Laboratory Results WBC 6.0 X10*3/uL (4.8-10.8) 04/20/22 11:06 RBC 3.95 X10*6/uL (4.60-5.80) L 04/20/22 11:06 Hgb 13.2 g/dl (14.0-18.0) L 04/20/22 11:06 Hct 37.9 % (42.0-52.0) L 04/20/22 11:06 MCV 95.9 fL (80.0-98.0) 04/20/22 11:06 MCH 33.4 pg (27.0-33.0) H 04/20/22 11:06 MCHC 34.8 g/dl (31.0-36.0) 04/20/22 11:06 RDW 12.9 % (11.0-16.0) 04/20/22 11:06 Plt Count 189 X10*3/uL (160-400) 04/20/22 11:06 MPV 10.0 fL (9.4-12.4) 04/20/22 11:06 Absolute Nucleated RBC 0.000 X10*3/uL (0.0-0.012) 04/20/22 11:06 Nucleated RBC % (auto) 0.0 /100WBC (0.0-0.2) 04/20/22 11:06 Sodium 142 mmol/L (135-145) 04/20/22 11:06 Potassium 4.3 mmol/L (3.3-5.1) 04/20/22 11:06 Chloride 110 mmol/L (96-108) H 04/20/22 11:06 Carbon Dioxide 24 mmol/L (22-29) 04/20/22 11:06 Anion Gap 12 (12-20) 04/20/22 11:06 BUN 13 mg/dL (9-16) 04/20/22 11:06 Creatinine 1.04 mg/dL (0.5-1.4) 04/20/22 11:06 Estim Creat Clear Calc 59.6 04/20/22 11:06 Estimated GFR > 60 04/20/22 11:06 Random Glucose 78 mg/dL (60-115) D 04/20/22 11:06 Calcium 8.9 mg/dL (8.4-10.2) 04/20/22 11:06 Total Bilirubin 0.7 mg/dL (0.0-1.0) 04/20/22 11:06 AST 21 U/L (5-37) 04/20/22 11:06 ALT 16 U/L (0-40) 04/20/22 11:06 Alkaline Phosphatase 75 U/L (39-117) 04/20/22 11:06 Troponin I High Sens < 3.5 ng/L (<3.5-35.0) 04/20/22 11:06 Total Protein 5.8 g/dL (6.5-8.0) L 04/20/22 11:06 Albumin 3.8 g/dL (3.5-5.0) 04/20/22 11:06 COVID-19 ([facility]) Negative (Negative) 04/20/22 11:06 COVID-19 Clin Com See Note 04/20/22 11:06 Impressions Chest X-Ray 04/20/22 11:22 IMPRESSION: No evidence for acute disease in the chest. Abdomen/Pelvis CT 04/20/22 12:10 IMPRESSION: 1. Subcapsular crescentic low-attenuation elongated focus laterally in the spleen was not seen on previous studies. A subcapsular collection/hematoma cannot be excluded. This should be monitored with serial splenic ultrasound to rule out enlarging collection. 2. Mild diverticulosis in the sigmoid colon. There is mild mural thickening in the mid one third of the sigmoid colon without pericolonic infiltrative changes. Trace adjacent dependent pelvic free fluid is seen. Very mild acute diverticulitis cannot be excluded. No evidence for perforation. No pneumoperitoneum. 3. Nonobstructing intrarenal calculi/calcifications bilaterally. 4. Mild prostatomegaly. This critical result was discussed with Shelby Roberto at 2:00 PM on 04/20/2022 and it was ascertained that the content and urgency of the report was understood at the time of direct communication. Assessment and Plan (1) Abnormal CT scan, gastrointestinal tract: Status: Acute He describes multiple issues prior to coming in including chest pain, left-sided abdominal pain and constipation. He has abdominal CAT scan shows what appears to be a subcapsular tear in the clean likely as a consequence of this colonoscopy days ago. He does not present with any bleeding symptoms from this and his hemoglobin is good. There is some subtle mural thickening of the sigmoid colon that may present mild diverticulitis. He does not require any surgical intervention at this time. I will however follow along while he is in the hospital. His hemoglobin may be followed. He can be started on stool softeners as well for his constipation. Procedures Date of Service Date of Service: 04/20/22
--- NOTE | 2022-04-20 15:58 | PM.IMHP ---
History of Present Illness Date of Service: 04/20/22 Chief Complaint: Abdominal pain A 67 years old male with PMH of CAD post CABG, stent, diabetes, HTN, COPD among others who presents to the hospital with 1 week of abdominal pain post colonoscopy. The patient had colonoscopy last week for reported abdominal discomfort, gas, bloating which showed colonic ulceration with polyp. He reports after the procedure recurrent abdominal pain mainly in the left upper quadrant and left lower quadrant but denies any fever, chills, nausea, vomiting, change in bowel habit or urinary symptoms. The pain fluctuate during the day but he notes it more upon certain movements. Colonoscopy procedure was described as difficult looping and the cecum was not intubated because of that. In the emergency a CT scan of the abdomen showed a possible subcapsular hematoma in his spleen. No perforation noted. Possible evidence of diverticulitis. Will be admitted for further evaluation and treatment. Review of Systems Review of Systems: No fever, chills or weakness No chest pain, palpitation No shortness of breath or coughing reporting abdominal pain,no nausea or vomiting No urinary symptoms No any rash or [facility] Medical History Abnormal CT scan, gastrointestinal tract Angina of effort Arthritis COPD (chronic obstructive pulmonary disease) Coronary artery disease Diabetes mellitus, type 2 Dizziness HLD (hyperlipidemia) HTN (hypertension) Memory difficulties On anticoagulant therapy On beta russ at home Peripheral vascular disease Surgical History H/O coronary artery bypass surgery S/P CABG x 3 (~09/2018) S/P cardiac cath (~08/2019) S/P cardiac cath (~04/2020) S/P cardiac catheterization (~12/2020) Stented coronary artery Social History Household Members: Children Housing: House Alcohol intake: former Patient Tobacco Use Status: Current everyday Tobacco user Tobacco use type: Cigarette Cigarette Packs Per Day: 1 Cigarettes Per Day: 20.0 Smoked in Last 30 Days: Yes Patient Interested in Nicotine Replacement: No Patient Given Instructions on How to Stop Smoking: Yes Date Education Initiated: 04/20/22 Use of substances other than those prescribed or required for medical reasons: No Currently Displaying Signs/Symptoms of Drug Intoxication Withdrawal: No Have you been hit, kicked, punched, or otherwise hurt by someone within the past year? If so, by whom?: No Do you feel safe in your current relationship?: No Current Relationship Is there a partner from a previous relationship who is making you feel unsafe now?: No Are you made to feel afraid or neglected: No Advance Directives: No Advance Directives Information Provided: No Do you have thoughts of harming others: None Do you have a plan to hurt others: No Plan Recently lost weight without trying: Unsure Nutrition Risks: No Nutritional Risk Poor oral hygiene: No Meds Allergies Allergy/AdvReac Type Severity Reaction Status Date / Time Penicillins Allergy Mild RASH Verified 04/06/22 12:54 ciprofloxacin [From Cipro] Allergy Unknown RASH Verified 04/06/22 12:54 Active Medications: Current Medications Pharmacy Consult (Consult Rx Perform Med Rec) 1 each MISCELLANE ONCE PRN PRN Reason: Consult order Pharmacy Consult (Consult Rx Perform Med Rec) 1 each MISCELLANE ONCE PRN PRN Reason: Consult order Home Medications Medication Instructions Recorded Confirmed Last Taken Type acarbose 50 mg tablet 50 mg PO BID 06/23/20 04/20/22 Unknown History albuterol sulfate 90 mcg/actuation 2 puff inhalation Q6H PRN Wheezing 06/23/20 04/20/22 Unknown History aerosol inhaler (ProAir HFA) aspirin 81 mg tablet,delayed 81 mg PO DAILY 06/23/20 04/20/22 04/10/22 History release (Adult Low Dose Aspirin) atorvastatin 80 mg tablet 80 mg PO DAILY 06/23/20 04/20/22 Unknown History clonazepam 1 mg tablet 1 mg PO DAILY 06/23/20 04/20/22 Unknown History insulin glargine 100 unit/mL (3 50 unit subcut QPM 06/23/20 04/20/22 Unknown History mL) subcutaneous pen (Lantus Solostar U-100 Insulin) loratadine 10 mg tablet 10 mg PO DAILY 06/23/20 04/20/22 Unknown History multivitamin with minerals-folic 1 tab PO DAILY 06/23/20 04/20/22 Unknown History acid 0.4 mg tablet (Adult One Daily Multivitamin) nicotine 21 mg/24 hr daily 1 patch transdermal DAILY 06/23/20 04/20/22 Unknown History transdermal patch quetiapine 100 mg tablet 100 mg PO DAILY 11/22/20 04/20/22 Unknown History bupropion HCl 150 mg 24 hr tablet, 150 mg PO DAILY 10/18/21 04/20/22 Unknown History extended release albuterol sulfate 2.5 mg/3 mL 3 ml inhalation DIRECTED 04/06/22 04/20/22 Unknown History (0.083 %) solution for nebulization diclofenac sodium 1 % topical gel 1 ea topical BID 04/06/22 04/20/22 Unknown History dulaglutide 0.75 mg/0.5 mL 1 ea subcut QWEEK 04/06/22 04/20/22 Unknown History subcutaneous pen injector (Trulicity) acetaminophen 650 mg mg PO 04/20/22 Unknown History tablet,extended release (Arthritis Pain Relief (acetaminophen) ER) clobetasol 0.05 % topical ointment 1 applic topical BID 04/20/22 04/20/22 Unknown History fluticasone 250 mcg-salmeterol 50 1 puff inhalation BID 04/20/22 04/20/22 Unknown History mcg/dose blistr powdr for inhalation (Clau Manning) Physical Exam Vital Signs and Narrative: Vital Signs: Last Vital Signs Temp 98 F 04/20/22 09:06 Pulse 57 04/20/22 10:52 Resp 12 04/20/22 10:52 BP 118/55 L 04/20/22 10:52 Pulse Ox 99 04/20/22 10:52 O2 Del Method 04/20/22 10:52 BMI result Body Mass Index 33.5 Const: Other: Constitutional : Alert, oriented, not in distress Neck : Normal inspection, Supple Cardiovascular : RRR, no JVP, no lower extremity edema Respiratory : fair bilateral air entry, no crackles, wheezes or rhonchi Gastrointestinal: soft, lax, Normal bowel sounds, mild generalized tenderness more noted on the left lower quadrant. Skin : Warm, Dry Neurological : Alert & oriented x3, No focal deficit , CN 2-12 within normal Results Labs CBC and Chem 7: 04/21/22 07:08 04/21/22 07:08 Labs: Laboratory Results - last 24 hr 04/20/22 04/20/22 04/20/22 11:06 11:06 11:06 MCV 95.9 MCH 33.4 H MCHC 34.8 RDW 12.9 Plt Count 189 MPV 10.0 Absolute Nucleated RBC 0.000 Nucleated RBC % (auto) 0.0 Anion Gap 12 Estim Creat Clear Calc 59.6 Estimated GFR > 60 Random Glucose 78 D Calcium 8.9 Total Bilirubin 0.7 AST 21 ALT 16 Alkaline Phosphatase 75 Total Protein 5.8 L Albumin 3.8 COVID-19 ([facility]) Negative COVID-19 Clin Com See Note Imaging Radiologist's Impressions: Impressions Chest X-Ray 04/20/22 11:22 IMPRESSION: No evidence for acute disease in the chest. Abdomen/Pelvis CT 04/20/22 12:10 IMPRESSION: 1. Subcapsular crescentic low-attenuation elongated focus laterally in the spleen was not seen on previous studies. A subcapsular collection/hematoma cannot be excluded. This should be monitored with serial splenic ultrasound to rule out enlarging collection. 2. Mild diverticulosis in the sigmoid colon. There is mild mural thickening in the mid one third of the sigmoid colon without pericolonic infiltrative changes. Trace adjacent dependent pelvic free fluid is seen. Very mild acute diverticulitis cannot be excluded. No evidence for perforation. No pneumoperitoneum. 3. Nonobstructing intrarenal calculi/calcifications bilaterally. 4. Mild prostatomegaly. This critical result was discussed with Shelby Roberto at 2:00 PM on 04/20/2022 and it was ascertained that the content and urgency of the report was understood at the time of direct communication. Assessment and Plan (1) Subcapsular hemorrhage of spleen: Status: Acute Plan A 67 years old male with PMH of CAD post CABG, stent, diabetes, HTN, COPD among others who presents to the hospital with 1 week of abdominal pain post colonoscopy. Subcapsular hematoma Hold both aspirin and Brilinta for now Surgical input appreciated Repeat spleen ultrasound in the morning Type and screen Follow H&H Mild diverticulitis No evidence of infection, could be reactive to the procedure Gentle hydration and help moving the bowels with laxatives Avoid antibiotics for now History CAD post CABG Continue home medications of statin, isosorbide and metoprolol Hold antiplatelets for now BPH continue tamsulosin Type 2 diabetes Diabetic diet, SSI Lantus 40 units Smoking Nicotine patch Advised to quit smoking DVT PPX SCDs Quality Stroke Does the patient have a stroke diagnosis?: No VTE Prior VTE?: No VTE Risk Level:: Medical - moderate - high VTE Device Contraindication: N/A - Device Ordered VTE Drug Contraindication: Treatment Not Indicated
--- NOTE | 2022-04-20 16:36 | PHA.MEDREC ---
Pharmacy Consult ? Medication Reconciliation Pharmacy has completed the medication reconciliation. Patient had list of his medications with him at time of interview.
[2022-04-20] MEDS: polyethylene glycoL 3350 17 GM POWD.PACK PO (17:08)
[2022-04-20] MEDS: Nicotine 21 MG PATCH.TD24 TRANSDERMA (17:08)
[2022-04-20] MEDS: Lactated Ringers 1,000 ML 80 ML IVCONT (17:34)
[2022-04-20 18:01] LABS: Glucose, Whole Blood 75 mg/dL (60-115)
[2022-04-20 20:01] LABS: Glucose, Whole Blood 161 mg/dL (60-115)
[2022-04-20 21:19] VITALS: BP 163/74; PULSE 62; RESP 20; TEMP 36.3; O2SAT 98
[2022-04-20 21:20] LABS: Glucose, Whole Blood 161 mg/dL (60-115)
[2022-04-20 21:35] VITALS: BMI 34.7
[2022-04-20] MEDS: Ranolazine 500 MG TAB.ER.12H 1000 MG PO (21:43)
[2022-04-20] MEDS: Sennosides 8.6 MG TABLET 17.2 MG PO (21:43)
[2022-04-20] MEDS: Metoprolol Tartrate 50 MG TABLET PO (21:43)
[2022-04-20] MEDS: 0.9 % Sodium Chloride Flush 3 ML SYRINGE IVFLUSH (21:48)
[2022-04-20 23:13] VITALS: BP 137/64; PULSE 57; RESP 15; TEMP 36.4; O2SAT 97
[2022-04-21] VITALS (8 sets, daily range): BP systolic 98–145; BP diastolic 57–66; PULSE 48–88; RESP 15–20; TEMP 36.5–36.9; O2SAT 94–99
[2022-04-21] MEDS: Omeprazole 20 MG CAPSULE.DR PO (04:40)
[2022-04-21] MEDS: 0.9 % Sodium Chloride Flush 3 ML SYRINGE IVFLUSH ×2 (04:40→21:36)
[2022-04-21] MEDS: Lactated Ringers 1,000 ML 80 ML IVCONT (05:26)
[2022-04-21 07:12] LABS: Glucose, Whole Blood 166 mg/dL (60-115)
[2022-04-21 07:17] LABS: Hematocrit 36.6 % (42.0-52.0); Hemoglobin 12.6 g/dl (14.0-18.0); Mean Corpuscular HGB Conc 34.4 g/dl (31.0-36.0); Mean Corpuscular Volume 95.8 fL (80.0-98.0); Mean Platelet Volume 10.1 fL (9.4-12.4); Platelet Count 176 X10*3/uL (160-400); Red Blood Count 3.82 X10*6/uL (4.60-5.80); Red Cell Distribution Width 12.8 % (11.0-16.0); White Blood Count 5.3 X10*3/uL (4.8-10.8)
[2022-04-21 07:35] LABS: Anion Gap 14 (12-20); Blood Urea Nitrogen 12 mg/dL (9-16); Calcium 8.4 mg/dL (8.4-10.2); Carbon Dioxide 21 mmol/L (22-29); Chloride 109 mmol/L (96-108); Creatinine Clr Calc Pharmacy 63.7; Estimated Glomerular Filt Rate > 60; Glucose Random 167 mg/dL (60-115); Sodium 140 mmol/L (135-145)
[2022-04-21] MEDS: Insulin Lispro 100 UNIT/ML 3 ML VIAL SUBCUT (07:47)
[2022-04-21] MEDS: Losartan Potassium 25 MG TABLET PO (07:48)
[2022-04-21] MEDS: Nicotine 21 MG PATCH.TD24 TRANSDERMA (07:48)
[2022-04-21] MEDS: Ezetimibe 10 MG TABLET PO (07:48)
[2022-04-21] MEDS: Ranolazine 500 MG TAB.ER.12H 1000 MG PO ×2 (07:48→21:34)
[2022-04-21] MEDS: buPROPion HCl XL 150 MG TAB.ER.24H PO (07:49)
[2022-04-21] MEDS: clonazePAM 1 MG TABLET PO (07:49)
[2022-04-21] MEDS: Theophylline Anhydrous ER 400 MG TAB.ER.24H PO (07:49)
[2022-04-21] MEDS: QUEtiapine Fumarate 100 MG TABLET PO (07:49)
[2022-04-21] MEDS: Atorvastatin Calcium 80 MG TABLET PO (07:49)
[2022-04-21] MEDS: amLODIPine Besylate 2.5 MG TABLET PO (07:49)
[2022-04-21] MEDS: Metoprolol Tartrate 50 MG TABLET PO ×2 (07:49→21:35)
[2022-04-21] MEDS: Loratadine 10 MG TABLET PO (07:50)
[2022-04-21] MEDS: Multivitamin TABLET 1 TAB PO (07:50)
[2022-04-21] MEDS: Isosorbide Mononitrate 60 MG TAB.ER.24H 120 MG PO (07:50)
[2022-04-21] MEDS: Fluticasone/Vilanterol 100/25 BLST.W.DEV 1 PUFF INHALE (08:06)
[2022-04-21 11:22] LABS: Glucose, Whole Blood 87 mg/dL (60-115)
--- NOTE | 2022-04-21 12:22 | HO.PM.IMPN ---
Subjective Subjective Date of Service: 04/21/22 Interval History: Report improvement in abdominal pain Mild drop in hemoglobin, seems dilution No reported overnight events Review of Systems No fever, chills or weakness No chest pain, palpitation No shortness of breath or coughing reporting abdominal pain,no nausea or vomiting No urinary symptoms No any rash or wounds Physical Exam Vital Signs: Vital Signs: Last Vital Signs Temp 97.9 F 04/21/22 11:17 Pulse 51 04/21/22 11:17 Resp 20 04/21/22 11:17 BP 124/60 04/21/22 11:17 Pulse Ox 98 04/21/22 11:17 O2 Del Method 04/21/22 11:17 O2 Flow Rate 2 04/21/22 11:17 BMI result Body Mass Index 34.7 Const: Other: Constitutional : Alert, oriented, not in distress Neck : Normal inspection, Supple Cardiovascular : RRR, no JVP, no lower extremity edema Respiratory : fair bilateral air entry, no crackles, wheezes or rhonchi Gastrointestinal: soft, lax, Normal bowel sounds, decreased generalized tenderness more noted on the left lower quadrant. Skin : Warm, Dry Neurological : Alert & oriented x3, No focal deficit , CN 2-12 within normal Objective Data Active Medications Acetaminophen (Acetaminophen 325 Mg Tablet) 650 mg PO Q6H PRN PRN Reason: Pain, Mild (Pain Scale 1-3) Albuterol Sulfate (Albuterol Sulfate (0.083%) 2.5 Mg/3 Ml Vial.Neb) 2.5 mg INHALE Q4H PRN PRN Reason: Shortness of Breath Albuterol Sulfate (Albuterol Sulfate 90 Mcg 8 Gm Inhaler) 2 puff INHALE Q6H PRN PRN Reason: Wheezing Amlodipine Besylate (Amlodipine Besylate 2.5 Mg Tablet) 2.5 mg PO DAILY PENDING SALE TO [facility]; Protocol Last Admin: 04/21/22 07:49 Dose: 2.5 mg Documented By: LISA Atorvastatin Calcium (Atorvastatin Calcium 80 Mg Tablet) 80 mg PO DAILY PENDING S[facility] TO [facility] Last Admin: 04/21/22 07:49 Dose: 80 mg Documented By: LISA Bupropion HCl (Bupropion Hcl Xl 150 Mg Tab.Er.24h) 150 mg PO DAILY PENDING [facility] TO [facility] Last Admin: 04/21/22 07:49 Dose: 150 mg Documented By: LISA Clonazepam (Clonazepam 1 Mg Tablet) 1 mg PO DAILY PENDING [facility] TO [facility] Last Admin: 04/21/22 07:49 Dose: 1 mg Documented By: LISA Docusate Sodium (Docusate Sodium 100 Mg Capsule) 100 mg PO BID PRN PRN Reason: Constipation Ezetimibe (Ezetimibe 10 Mg Tablet) 10 mg PO DAILY [facility]END[facility] TO [facility] Last Admin: 04/21/22 07:48 Dose: 10 mg Documented By: LISA Fluticasone/Vilanterol (Fluticasone/Vilanterol 100/25 Blst.W.Dev) 1 puff INHALE RDAILY PENDING [facility] TO [facility] Last Admin: 04/21/22 08:06 Dose: 1 puff Documented By: JUMANA Insulin Human Lispro (Insulin Lispro 100 Unit/Ml 3 Ml Vial) 0 unit SUBCUT QIDACHS PENDING SALE TO [facility]; Protocol Last Admin: 04/21/22 11:45 Dose: Not Given Documented By: LISA Non-Admin Reason: No Insulin Coverage Isosorbide Mononitrate (Isosorbide Mononitrate 60 Mg Tab.Er.24h) 120 mg PO DAILY PENDING [facility]ALE TO [facility]; Protocol Last Admin: 04/21/22 07:50 Dose: 120 mg Documented By: LISA Loratadine (Loratadine 10 Mg Tablet) 10 mg PO DAILY PEND[facility] TO [facility] Last Admin: 04/21/22 07:50 Dose: 10 mg Documented By: LISA Losartan Potassium (Losartan Potassium 25 Mg Tablet) 25 mg PO DAILY PENDING [facility] TO [facility]; Protocol Last Admin: 04/21/22 07:48 Dose: 25 mg Documented By: LISA Metoprolol Tartrate (Metoprolol Tartrate 50 Mg Tablet) 50 mg PO BID PENDING [facility] TO [facility]; Protocol Last Admin: 04/21/22 07:49 Dose: 50 mg Documented By: LISA Multivitamins/Vitamin C (Multivitamin Tablet) 1 tab PO DAILY PENDING [facility] TO [facility] Last Admin: 04/21/22 07:50 Dose: 1 tab Documented By: LISA Nicotine (Nicotine 21 Mg Patch.Td24) 21 mg TRANSDERMA DAILY PENDING [facility]ALE TO [facility] Last Admin: 04/21/22 07:48 Dose: 21 mg Documented By: LISA Nitroglycerin (Nitroglycerin 0.4 Mg Tab.Subl) 0.4 mg SUBLINGUAL Q5MX3 PRN PRN Reason: chest pain Non-Formulary Medication (Umeclidinium-Vilanterol [Anoro Ellipta]) 1 inhalation INHALE DAILY PENDING SALE TO [facility] Non-Formulary Medication (Acarbose) 50 mg PO BID PENDING SALE TO [facility] Omeprazole (Omeprazole 20 Mg Capsule.Dr) 20 mg PO DAILY@0630 PENDING SALE TO [facility] Last Admin: 04/21/22 04:40 Dose: 20 mg Documented By: KORINA Ondansetron HCl (Ondansetron Hcl 4 Mg/2 Ml Vial) 4 mg IVPUSH Q8H PRN PRN Reason: Nausea and Vomiting Pharmacy Consult (Consult Rx Perform Med Rec) 1 each MISCELLANE ONCE PRN PRN Reason: Consult order Pharmacy Consult (Consult Rx Perform Med Rec) 1 each MISCELLANE ONCE PRN PRN Reason: Consult order Quetiapine Fumarate (Quetiapine Fumarate 100 Mg Tablet) 100 mg PO DAILY PEND[facility] TO [facility] Last Admin: 04/21/22 07:49 Dose: 100 mg Documented By: LISA Ranolazine (Ranolazine 500 Mg Tab.Er.12h) 1,000 mg PO BID PENDING SALE TO [facility] Last Admin: 04/21/22 07:48 Dose: 1,000 mg Documented By: LISA Senna (Sennosides 8.6 Mg Tablet) 8.6 mg PO BEDTIME PENDING SALE TO [facility] Last Admin: 04/20/22 21:25 Dose: Not Given Documented By: JUN Non-Admin Reason: Duplicate Order Senna (Sennosides 8.6 Mg Tablet) 17.2 mg PO BEDTIME PENDING SALE TO [facility] Last Admin: 04/20/22 21:43 Dose: 17.2 mg Documented By: JUN Sodium Chloride (0.9 % Sodium Chloride Flush 3 Ml Syringe) 3 ml IVFLUSH QSHIFT PENDING SALE TO [facility] Last Admin: 04/21/22 04:40 Dose: 3 ml Documented By: KORINA Theophylline (Theophylline Anhydrous Er 400 Mg Tab.Er.24h) 400 mg PO DAILY PENDING SALE TO [facility] Last Admin: 04/21/22 07:49 Dose: 400 mg Documented By: LISA Labs CBC & Chem 7: 04/21/22 07:08 04/21/22 07:08 Labs: Laboratory Results - last 24 hr 04/20/22 04/20/22 04/20/22 17:57 19:55 21:14 MCV MCH MCHC RDW Plt Count MPV Absolute Nucleated RBC Nucleated RBC % (auto) Anion Gap Estim Creat Clear Calc Estimated GFR POC Glucose 75 161 H 161 H Random Glucose Calcium Blood Type Antibody Screen 04/21/22 04/21/22 04/21/22 07:06 07:08 07:08 MCV 95.8 MCH 33.0 MCHC 34.4 RDW 12.8 Plt Count 176 MPV 10.1 Absolute Nucleated RBC 0.000 Nucleated RBC % (auto) 0.0 Anion Gap 14 Estim Creat Clear Calc 63.7 Estimated GFR > 60 POC Glucose 166 H Random Glucose 167 H D Calcium 8.4 Blood Type Antibody Screen 04/21/22 04/21/22 07:08 11:19 MCV MCH MCHC RDW Plt Count MPV Absolute Nucleated RBC Nucleated RBC % (auto) Anion Gap Estim Creat Clear Calc Estimated GFR POC Glucose 87 Random Glucose Calcium Blood Type A Positive Antibody Screen NEGATIVE Assessment and Plan (1) Hematoma of spleen after non-spleen procedure: Status: Acute Plan A 67 years old male with PMH of CAD post CABG, stent, diabetes, HTN, COPD among others who presents to the hospital with 1 week of abdominal pain post colonoscopy. Subcapsular hematoma Mild drop in hemoglobin, no overt bleeding, likely delutional Hold both aspirin and Brilinta for now Surgical input appreciated Repeat spleen ultrasound Type and screen Follow H&H Mild diverticulitis No evidence of infection, could be reactive to the procedure Hold IVF laxatives Avoid antibiotics for now History CAD post CABG Continue home medications of statin, isosorbide and metoprolol Hold antiplatelets for now BPH continue tamsulosin Type 2 diabetes Diabetic diet, SSI Lantus 40 units Smoking Nicotine patch Advised to quit smoking DVT PPX SCDs Quality Stroke Does the patient have a stroke diagnosis?: No VTE Prior VTE?: No VTE Risk Level:: Medical - moderate - high VTE Device Contraindication: N/A - Device Ordered VTE Drug Contraindication: Treatment Not Indicated
--- NOTE | 2022-04-21 15:02 | MHC.CM.PN ---
Addendum entered by Liseth Zabala 04/21/22 15:25: VACCINATED X3 MODERNA Original Note: HARMAN 04/21/22 MALE 67 DX ABDOMINAL PAIN. He lives alone with assist from DTR/REGISTERED N[employer]SE [employer] ASSIST[employer]. He uses a cane for unsteady gait. He uses a CPAP. His dtr will provide transportation home.
--- NOTE | 2022-04-21 15:26 | P.PNGS_ITS ---
Subjective Subjective Date of Service: 04/21/22 Interval history: Says he has had good bowel movements after getting MiraLax Feels much better Denies abdominal pain Physical Exam Vital Signs: Vital Signs: Last Vital Signs Temp 97.9 F 04/21/22 11:17 Pulse 51 04/21/22 11:17 Resp 20 04/21/22 11:17 BP 124/60 04/21/22 11:17 Pulse Ox 98 04/21/22 11:17 O2 Del Method 04/21/22 11:17 O2 Flow Rate 2 04/21/22 11:17 BMI result Body Mass Index 34.7 Const: Other: Looks well General: comfortable and no acute distress Resp: Effort & Inspection: normal respiratory effort Cardio: Rate: regular rate GI: Palpation (GI): Soft to palpation, not firm and nontender Objective Data Active Medications Acetaminophen (Acetaminophen 325 Mg Tablet) 650 mg PO Q6H PRN PRN Reason: Pain, Mild (Pain Scale 1-3) Albuterol Sulfate (Albuterol Sulfate (0.083%) 2.5 Mg/3 Ml Vial.Neb) 2.5 mg INHALE Q4H PRN PRN Reason: Shortness of Breath Albuterol Sulfate (Albuterol Sulfate 90 Mcg 8 Gm Inhaler) 2 puff INHALE Q6H PRN PRN Reason: Wheezing Amlodipine Besylate (Amlodipine Besylate 2.5 Mg Tablet) 2.5 mg PO DAILY [facility]; Protocol Last Admin: 04/21/22 07:49 Dose: 2.5 mg Documented By: LISA Atorvastatin Calcium (Atorvastatin Calcium 80 Mg Tablet) 80 mg PO DAILY [facility] Last Admin: 04/21/22 07:49 Dose: 80 mg Documented By: LISA Bupropion HCl (Bupropion Hcl Xl 150 Mg Tab.Er.24h) 150 mg PO DAILY [facility] Last Admin: 04/21/22 07:49 Dose: 150 mg Documented By: LISA Clonazepam (Clonazepam 1 Mg Tablet) 1 mg PO DAILY [facility] Last Admin: 04/21/22 07:49 Dose: 1 mg Documented By: LISA Docusate Sodium (Docusate Sodium 100 Mg Capsule) 100 mg PO BID PRN PRN Reason: Constipation Ezetimibe (Ezetimibe 10 Mg Tablet) 10 mg PO DAILY [facility] Last Admin: 04/21/22 07:48 Dose: 10 mg Documented By: LISA Fluticasone/Vilanterol (Fluticasone/Vilanterol 100/25 Blst.W.Dev) 1 puff INHALE RDAILY [facility] Last Admin: 04/21/22 08:06 Dose: 1 puff Documented By: JUMANA Insulin Human Lispro (Insulin Lispro 100 Unit/Ml 3 Ml Vial) 0 unit SUBCUT QIDACHS [facility]; Protocol Last Admin: 04/21/22 11:45 Dose: Not Given Documented By: LISA Non-Admin Reason: No Insulin Coverage Isosorbide Mononitrate (Isosorbide Mononitrate 60 Mg Tab.Er.24h) 120 mg PO DAILY [facility]; Protocol Last Admin: 04/21/22 07:50 Dose: 120 mg Documented By: LISA Loratadine (Loratadine 10 Mg Tablet) 10 mg PO DAILY [facility] Last Admin: 04/21/22 07:50 Dose: 10 mg Documented By: LISA Losartan Potassium (Losartan Potassium 25 Mg Tablet) 25 mg PO DAILY [facility]; Protocol Last Admin: 04/21/22 07:48 Dose: 25 mg Documented By: LISA Metoprolol Tartrate (Metoprolol Tartrate 50 Mg Tablet) 50 mg PO BID [facility]; Protocol Last Admin: 04/21/22 07:49 Dose: 50 mg Documented By: LISA Multivitamins/Vitamin C (Multivitamin Tablet) 1 tab PO DAILY [facility] Last Admin: 04/21/22 07:50 Dose: 1 tab Documented By: LISA Nicotine (Nicotine 21 Mg Patch.Td24) 21 mg TRANSDERMA DAILY [facility] Last Admin: 04/21/22 07:48 Dose: 21 mg Documented By: LISA Nitroglycerin (Nitroglycerin 0.4 Mg Tab.Subl) 0.4 mg SUBLINGUAL Q5MX3 PRN PRN Reason: chest pain Non-Formulary Medication (Umeclidinium-Vilanterol [Anoro Ellipta]) 1 inhalation INHALE DAILY [facility] Non-Formulary Medication (Acarbose) 50 mg PO BID [facility] Omeprazole (Omeprazole 20 Mg Capsule.Dr) 20 mg PO DAILY@0630 [facility] Last Admin: 04/21/22 04:40 Dose: 20 mg Documented By: KORINA Ondansetron HCl (Ondansetron Hcl 4 Mg/2 Ml Vial) 4 mg IVPUSH Q8H PRN PRN Reason: Nausea and Vomiting Pharmacy Consult (Consult Rx Perform Med Rec) 1 each MISCELLANE ONCE PRN PRN Reason: Consult order Pharmacy Consult (Consult Rx Perform Med Rec) 1 each MISCELLANE ONCE PRN PRN Reason: Consult order Quetiapine Fumarate (Quetiapine Fumarate 100 Mg Tablet) 100 mg PO DAILY [facility] Last Admin: 04/21/22 07:49 Dose: 100 mg Documented By: LISA Ranolazine (Ranolazine 500 Mg Tab.Er.12h) 1,000 mg PO BID [facility] Last Admin: 04/21/22 07:48 Dose: 1,000 mg Documented By: LISA Senna (Sennosides 8.6 Mg Tablet) 8.6 mg PO BEDTIME [facility] Last Admin: 04/20/22 21:25 Dose: Not Given Documented By: JUN Non-Admin Reason: Duplicate Order Senna (Sennosides 8.6 Mg Tablet) 17.2 mg PO BEDTIME [facility] Last Admin: 04/20/22 21:43 Dose: 17.2 mg Documented By: JUN Sodium Chloride (0.9 % Sodium Chloride Flush 3 Ml Syringe) 3 ml IVFLUSH QSHIFT [facility] Last Admin: 04/21/22 04:40 Dose: 3 ml Documented By: KORINA Theophylline (Theophylline Anhydrous Er 400 Mg Tab.Er.24h) 400 mg PO DAILY [facility] Last Admin: 04/21/22 07:49 Dose: 400 mg Documented By: LISA Labs CBC & Chem 7: 04/21/22 07:08 04/21/22 07:08 Labs: Laboratory Results - last 24 hr 04/20/22 04/20/22 04/20/22 17:57 19:55 21:14 MCV MCH MCHC RDW Plt Count MPV Absolute Nucleated RBC Nucleated RBC % (auto) Anion Gap Estim Creat Clear Calc Estimated GFR POC Glucose 75 161 H 161 H Random Glucose Calcium Blood Type Antibody Screen 04/21/22 04/21/22 04/21/22 07:06 07:08 07:08 MCV 95.8 MCH 33.0 MCHC 34.4 RDW 12.8 Plt Count 176 MPV 10.1 Absolute Nucleated RBC 0.000 Nucleated RBC % (auto) 0.0 Anion Gap 14 Estim Creat Clear Calc 63.7 Estimated GFR > 60 POC Glucose 166 H Random Glucose 167 H D Calcium 8.4 Blood Type Antibody Screen 04/21/22 04/21/22 07:08 11:19 MCV MCH MCHC RDW Plt Count MPV Absolute Nucleated RBC Nucleated RBC % (auto) Anion Gap Estim Creat Clear Calc Estimated GFR POC Glucose 87 Random Glucose Calcium Blood Type A Positive Antibody Screen NEGATIVE Procedures Date of Service Date of Service: 04/21/22 Progress Note: A&P Assessment and plan (1) Subcapsular hemorrhage of spleen: Status: Acute Assessment and Plan: Hemoglobin stable Asymptomatic Abdomen remained soft and benign Looks well Diet as tolerated Okay for discharge from surgical point of view Needs stool softeners for constipation Time Spent With Patient Time: Total time spent is greater than 50% in coordination of care (as documented) at patient's floor/unit and/or counseling patient: Quality Stroke Does the patient have a stroke diagnosis?: No VTE Prior VTE?: No VTE Risk Level:: Medical - moderate - high VTE Device Contraindication: N/A - Device Ordered VTE Drug Contraindication: Treatment Not Indicated
[2022-04-21 16:19] LABS: Glucose, Whole Blood 103 mg/dL (60-115)
[2022-04-21 21:12] LABS: Glucose, Whole Blood 138 mg/dL (60-115)
[2022-04-21] MEDS: Sennosides 8.6 MG TABLET 17.2 MG PO (21:34)
[2022-04-21] MEDS: Sennosides 8.6 MG TABLET PO (21:34)
[2022-04-22 03:07] VITALS: BP 101/58; PULSE 76; RESP 20; TEMP 36.2; O2SAT 97
[2022-04-22] MEDS: Omeprazole 20 MG CAPSULE.DR PO (06:05)
[2022-04-22 06:36] LABS: Hematocrit 36.3 % (42.0-52.0); Hemoglobin 12.4 g/dl (14.0-18.0); Mean Corpuscular HGB Conc 34.2 g/dl (31.0-36.0); Mean Corpuscular Volume 96.5 fL (80.0-98.0); Mean Platelet Volume 9.9 fL (9.4-12.4); Platelet Count 162 X10*3/uL (160-400); Red Blood Count 3.76 X10*6/uL (4.60-5.80); Red Cell Distribution Width 12.7 % (11.0-16.0)
[2022-04-22 07:17] LABS: Glucose, Whole Blood 150 mg/dL (60-115)
[2022-04-22 07:27] VITALS: BP 113/57; PULSE 53; RESP 20; TEMP 36.9; O2SAT 98
[2022-04-22] MEDS: Fluticasone/Vilanterol 100/25 BLST.W.DEV 1 PUFF INHALE (09:11)
--- NOTE | 2022-04-22 09:39 | MHC.CM.PN ---
Male 67 DX AB pain is discharge to home with resumption of services already in place. Patient has arranged for transport home.
[2022-04-22] MEDS: Nicotine 21 MG PATCH.TD24 TRANSDERMA (10:04)
[2022-04-22] MEDS: Losartan Potassium 25 MG TABLET PO (10:05)
[2022-04-22] MEDS: Isosorbide Mononitrate 60 MG TAB.ER.24H 120 MG PO (10:05)
[2022-04-22] MEDS: Ranolazine 500 MG TAB.ER.12H 1000 MG PO (10:05)
[2022-04-22] MEDS: Multivitamin TABLET 1 TAB PO (10:06)
[2022-04-22] MEDS: Ezetimibe 10 MG TABLET PO (10:06)
[2022-04-22] MEDS: clonazePAM 1 MG TABLET PO (10:06)
[2022-04-22] MEDS: QUEtiapine Fumarate 100 MG TABLET PO (10:06)
[2022-04-22] MEDS: buPROPion HCl XL 150 MG TAB.ER.24H PO (10:06)
[2022-04-22] MEDS: Atorvastatin Calcium 80 MG TABLET PO (10:06)
[2022-04-22] MEDS: Metoprolol Tartrate 50 MG TABLET PO (10:06)
[2022-04-22] MEDS: Theophylline Anhydrous ER 400 MG TAB.ER.24H PO (10:06)
[2022-04-22] MEDS: amLODIPine Besylate 2.5 MG TABLET PO (10:07)
[2022-04-22] MEDS: 0.9 % Sodium Chloride Flush 3 ML SYRINGE IVFLUSH (10:07)
[2022-04-22] MEDS: Loratadine 10 MG TABLET PO (10:07)
--- NOTE | 2022-04-22 10:26 | P.DS_ITS ---
DS: Providers Provider Date of Service: 04/22/22 Date of admission: 04/20/22 15:52 Primary care physician: Susie Cintron MD Consults: 04/20/22 15:52 Consult to General Surgery Routine Consulting Provider: Adrian Stanley Reason for consultation: subcapsular hematoma of spleen DS: Diagnosis Discharge Diagnosis (1) Subcapsular hemorrhage of spleen: Status: Acute DS: Summary Hospital Course Hospital Course: Admission note HPI A 67 years old male with PMH of CAD post CABG, stent, diabetes, HTN, COPD among others who presents to the hospital with 1 week of abdominal pain post colonosc opy.? The patient had colonoscopy last week for reported abdominal discomfort, gas, bloating which showed colonic ulceration with polyp.? He reports after the procedure recurrent abdominal pain mainly in the left upper quadrant and left lower quadrant but denies any fever, chills, nausea, vomiting, change in bowel habit or urinary symptoms.? The pain fluctuate during the day but he notes it more upon certain movements. Colonoscopy procedure was described as difficult looping and the cecum was not intubated because of that. In the emergency a CT scan of the abdomen showed a possible subcapsular hematoma in his spleen.? No perforation noted.? Possible evidence of diverticulitis. Will be admitted for further evaluation and treatment. Hospital course The patient was admitted to the hospital for evaluation of abdominal pain. CT scan of the abdomen reported evidence of subcapsular hematoma in the spleen. Evaluated by surgical team who recommended no intervention as he was monitor during the hospital stay with repeated ultrasound images did not show any worsening in the hematoma size and no major drop in his hemoglobin as the pain improved. CT scan reported also mild diverticulitis. No evidence of infection. Believed to be secondary to recent colonoscopy. Treated with symptomatic measures. Reported constipation and started on laxatives. To be discharged on Metamucil to help with bowel movement and decrease the chance of diverticulitis. Restart aspirin and Brilinta Start Metamucil and eat high-fiber diet Come back to the hospital for any worsening abdominal pain, weakness or difficulty breathing. Time Spent with Patient Time attestation: Total time spent providing and/or coordinating discharge services: Discharge coordination time: Less than 30 minutes Quality: Safe Use of Opioids Does Pt have an Active Cancer Diagnosis on the Problem List?: No Quality: Stroke Does the patient have a stroke diagnosis?: No Physical Exam Vital Signs: Vital Signs: Last Vital Signs Temp 98.5 F 04/22/22 07:27 Pulse 53 04/22/22 07:27 Resp 20 04/22/22 07:27 BP 113/57 L 04/22/22 07:27 Pulse Ox 98 04/22/22 07:27 O2 Del Method 04/22/22 07:27 O2 Flow Rate 2 04/21/22 11:17 BMI result Body Mass Index 34.7 Const: Other: Constitutional : Alert, oriented, not in distress Neck : Normal inspection, Supple Cardiovascular : RRR, no JVP, no lower extremity edema Respiratory : fair bilateral air entry, no crackles, wheezes or rhonchi Gastrointestinal: soft, lax, Normal bowel sounds, No tenderness Skin : Warm, Dry Neurological : Alert & oriented x3, No focal deficit , CN 2-12 within normal DS: Data Data Completed and Pending Labs on day of discharge: Laboratory Results - last 24 hr 04/21/22 04/21/22 04/21/22 11:19 16:14 20:59 WBC RBC Hgb Hct MCV MCH MCHC RDW Plt Count MPV Absolute Nucleated RBC Nucleated RBC % (auto) POC Glucose 87 103 138 H 04/22/22 04/22/22 06:28 07:11 WBC 5.0 RBC 3.76 L Hgb 12.4 L Hct 36.3 L MCV 96.5 MCH 33.0 MCHC 34.2 RDW 12.7 Plt Count 162 MPV 9.9 Absolute Nucleated RBC 0.000 Nucleated RBC % (auto) 0.0 POC Glucose [address] scan - abdomen: Radiologist's impression: ITS Impressions Chest X-Ray 04/20/22 11:22 IMPRESSION: No evidence for acute disease in the chest. Abdomen/Pelvis CT 04/20/22 12:10 IMPRESSION: 1. Subcapsular crescentic low-attenuation elongated focus laterally in the spleen was not seen on previous studies. A subcapsular collection/hematoma cannot be excluded. This should be monitored with serial splenic ultrasound to rule out enlarging collection. 2. Mild diverticulosis in the sigmoid colon. There is mild mural thickening in the mid one third of the sigmoid colon without pericolonic infiltrative changes. Trace adjacent dependent pelvic free fluid is seen. Very mild acute diverticulitis cannot be excluded. No evidence for perforation. No pneumoperitoneum. 3. Nonobstructing intrarenal calculi/calcifications bilaterally. 4. Mild prostatomegaly. This critical result was discussed with Shelby Roberto at 2:00 PM on 04/20/2022 and it was ascertained that the content and urgency of the report was understood at the time of direct communication. Discharge Plan Discharge Patient Disposition: Home Health Service Referrals: Susie Park MD [Primary Care Provider] - 05/02/22 10:15 am (You have appointment scheduled with pcp for follow up, call if you need to reschedule.) Discharge Medications: New Metamucil Fiber Singles 3.4 gram Powder In Packet 3.4 g PO DAILY Qty: 30 0RF Continued Repatha SureClick 140 mg/mL pen injector 140 mg subcut Q2W 90 Days Qty: 7 3RF metoprolol tartrate 50 mg tablet 50 mg PO BID 90 Days Qty: 180 1RF pantoprazole 40 mg tablet,delayed release (DR/EC) 40 mg PO DAILY Qty: 30 3RF isosorbide mononitrate 120 mg tablet extended release 24 hr 120 mg PO QAM Qty: 30 4RF Brilinta 90 mg tablet 90 mg PO BID 30 Days Qty: 60 3RF sennosides [Omayra-cee] 8.6 mg tablet 17.2 mg PO BEDTIME 30 Days Qty: 60 3RF simethicone [Gas Relief (simethicone)] 180 mg capsule 180 mg PO BID PRN (Reason: abdominal distention) Qty: 60 4RF ezetimibe 10 mg tablet 10 mg PO DAILY Qty: 30 2RF nitroglycerin 0.4 mg tablet, sublingual 0.4 mg sublingual Q5M PRN (Reason: chest pain) Qty: 25 1RF Rx Instructions: Do not exceed 3 doses per episode losartan 25 mg tablet 25 mg PO DAILY Qty: 90 1RF amlodipine 2.5 mg tablet 2.5 mg PO DAILY 90 Days Qty: 90 1RF ranolazine [Ranexa] 1,000 mg tablet extended release 12 hr 1,000 mg PO BID 90 Days Qty: 180 1RF bisacodyl [Dulcolax (bisacodyl)] 5 mg tablet,delayed release (DR/EC) 10 mg PO ONCE 1 Days Qty: 2 0RF Rx Instructions: Take 2 tablets at 12:00pm the day before your procedure, bowel prep diclofenac sodium 1 % gel 1 ea topical BID Trulicity 0.75 mg/0.5 mL pen injector 1 ea subcut QWEEK albuterol sulfate 2.5 mg /3 mL (0.083 %) solution for nebulization 3 ml inhalation DIRECTED fluticasone propion-salmeterol [Wixela Inhub] 250-50 mcg/dose blister with device 1 puff inhalation BID acetaminophen [Arthritis Pain Relief (acetam)] 650 mg tablet extended release PO clobetasol 0.05 % ointment 1 applic topical BID quetiapine 100 mg tablet 100 mg PO DAILY bupropion HCl 150 mg tablet extended release 24 hr 150 mg PO DAILY acarbose 50 mg tablet 50 mg PO BID loratadine 10 mg tablet 10 mg PO DAILY clonazepam 1 mg tablet 1 mg PO DAILY Adult One Daily Multivitamin 0.4 mg tablet 1 tab PO DAILY Lantus Solostar U-100 Insulin 100 unit/mL (3 mL) insulin pen 50 unit subcut QPM aspirin [Adult Low Dose Aspirin] 81 mg tablet,delayed release (DR/EC) 81 mg PO DAILY albuterol sulfate [ProAir HFA] 90 mcg/actuation HFA aerosol inhaler 2 puff inhalation Q6H PRN (Reason: Wheezing) nicotine 21 mg/24 hr patch 24 hour 1 patch transdermal DAILY atorvastatin 80 mg tablet 80 mg PO DAILY Anoro Ellipta 62.5-25 mcg/actuation blister with device 1 inh inhalation DAILY 30 Days Qty: 1 6RF theophylline 400 mg tablet extended release 24 hr 400 mg PO DAILY 30 Days Qty: 30 6RF Discharge Orders: Discharge Order (Routine); Ordered 04/22/22 Ordered By: Geronimo Herrera Diet: Advance to usual diet Activity on Discharge: As tolerated Stand Alone Forms: Patient Portal Discharge page Care Plan Goals: Read below Health Concerns: Read below Plan of Treatment: Read below Assessment: you were admitted to the hospital for evaluation of abdominal pain. Found to have an evidence of bleeding to your spleen with no significant drop in your blood level. You were monitored with no significant changes your hemoglobin level as you were evaluated by surgical team who recommended no intervention. Repeated ultrasound showed no worsening in the area of bleeding. Restart aspirin and Brilinta Start Metamucil and eat high-fiber diet Come back to the hospital for any worsening abdominal pain, weakness or diffic ulty breathing.
[2022-04-22 11:39] LABS: Glucose, Whole Blood 177 mg/dL (60-115)
[2022-04-22 12:00] VITALS: BP 116/61; PULSE 61; RESP 20; TEMP 36.6; O2SAT 99
[2022-04-22] MEDS: Aspirin Enteric Coated 81 MG TABLET.DR PO (12:18)
[2022-04-22] MEDS: Lactulose 20 GM/30 ML SOLUTION PO (12:18)
[2022-04-22] MEDS: Insulin Lispro 100 UNIT/ML 3 ML VIAL SUBCUT (12:19)
--- NOTE | 2022-04-22 14:52 | PC.NURSE ---
Alert and oriented. Denies pain, VSS, afebrile, no acute resp. distress noted. Ambulated in the hallway independently. New order to discharge patient home. Went over discharge instructions, follow up apt and medication administrations with patient, verbalized understanding back. Staff offered to walk patient to the lobby, patient refused, stated I can walk home by myself.
== END 2022-04-22 15:05 | disposition home health service (06) ==
LOC: HO.ED 09:35 → HO.EDOVER 16:01 → HO.IMC 17:45
PROVIDERS: Physician Assistant Medical; Admitting Provider Student in an Organized Health Care Education/Training Program; Emergency Provider Emergency Medicine; PCP Internal Medicine; Visit Provider Student in an Organized Health Care Education/Training Program
DX: D78.32 Postprocedural hematoma of the spleen following other procedure (principal); Z20.822 Contact with and (suspected) exposure to COVID-19; K57.30 Diverticulosis of large intestine without perforation or abscess without bleeding; N20.0 Calculus of kidney; I10 Essential (primary) hypertension; E11.9 Type 2 diabetes mellitus without complications; E78.5 Hyperlipidemia, unspecified; J44.9 Chronic obstructive pulmonary disease, unspecified; F17.210 Nicotine dependence, cigarettes, uncomplicated; Z95.5 Presence of coronary angioplasty implant and graft; Z79.4 Long term (current) use of insulin; Z79.01 Long term (current) use of anticoagulants; Z79.02 Long term (current) use of antithrombotics/antiplatelets; Z79.899 Other long term (current) drug therapy
CPT/HCPCS: 36415; 71045; 74176; 76705; 80048; 80053; 82947; 84484; 85027; 86850; 86900; 86901; 87635; 93005; 94660; 96360; 96361; 99219; 99285; Q9967

== ENCOUNTER 2022-04-26 10:38 | Outpatient (REF) | payer OTHER, SELFPAY ==
[2022-04-26 12:14] LABS: C Reactive Protein 0.11 mg/dL (< or = 0.50)
[2022-04-26 12:48] LABS: Folate 9.4 ng/mL (> or = 4.0); Vitamin B12 403 pg/mL (200-900)
[2022-05-01 13:02] LABS: Vitamin D 25-OH, D2 <4 ng/mL; Vitamin D 25-OH, D3 30 ng/mL; Vitamin D 25-OH, Total 30 ng/mL (30-100)
== END 2022-04-26 10:39 | disposition home or self-care (01) ==
LOC: HO.LAB 10:38
PROVIDERS: PCP Internal Medicine; Visit Provider Nurse Practitioner Family
DX: R10.9 Unspecified abdominal pain (principal); K58.9 Irritable bowel syndrome, unspecified; E55.9 Vitamin D deficiency, unspecified
CPT/HCPCS: 36415; 82306; 82607; 82746; 86140; 99212

== ENCOUNTER → 2022-05-09 13:49 | Outpatient (BNVA) | payer OTHER, SELFPAY | PROVIDERS: PCP Internal Medicine; Visit Provider Nurse Practitioner Family | DX: I25.118 Atherosclerotic heart disease of native coronary artery with other forms of angina pectoris (principal); I10 Essential (primary) hypertension; E78.5 Hyperlipidemia, unspecified; R06.02 Shortness of breath; R94.31 Abnormal electrocardiogram [ECG] [EKG]; Z98.890 Other specified postprocedural states; Z95.1 Presence of aortocoronary bypass graft; Z95.5 Presence of coronary angioplasty implant and graft | CPT/HCPCS: 93005; 99212 ==

== ENCOUNTER → 2022-05-15 08:33 | Outpatient (BNVA) | payer OTHER, SELFPAY | PROVIDERS: PCP Internal Medicine; Visit Provider Internal Medicine Gastroenterology | DX: K63.3 Ulcer of intestine (principal) | CPT/HCPCS: 99212 ==

== ENCOUNTER → 2022-05-19 12:29 | Outpatient (BNVA) | payer OTHER, SELFPAY | PROVIDERS: PCP Internal Medicine; Visit Provider Internal Medicine Pulmonary Disease | DX: J44.9 Chronic obstructive pulmonary disease, unspecified (principal); R91.8 Other nonspecific abnormal finding of lung field; F17.210 Nicotine dependence, cigarettes, uncomplicated | CPT/HCPCS: 99212 ==

== ENCOUNTER → 2022-06-26 14:54 | Outpatient (REF) | payer OTHER, SELFPAY ==
--- NOTE | 2022-06-26 15:00 | CA_ITS ---
Transthoracic Echocardiogram Patient (Last, First, Middle): Elio Calles, Gender: Male Date of : 1955 Age: 67 Procedure Date: 06/26/2022 Procedure Type: Transthoracic Echocardiogram Location: OP Height: 167.64 cm Weight: 78.02 kg BSA: 1.88 m2 Heart Rate: 60 bpm BP: 135 / 70 mmHg Stove Mechanic: ROSEANN Referring MD: Miroslava Nam CHICKEN BONERSanta Symptoms: R06.02 - Shortness of breath Study Quality: Adequate ECG Rhythm: Sinus Conclusions: - The left ventricular systolic function is normal. The calculated ejection fraction is 60% by biplane method. - The basal inferior and basal inferolateral segments are akinetic. - There is severely decreased right ventricular systolic function. - No obvious valvular pathology seen on this study. Findings Left Ventricle Normal left ventricular cavity size. There is mildly increased left ventricular wall thickness. The left ventricular systolic function is normal. The calculated ejection fraction is 60% by biplane method. There is evidence of regional wall motion abnormalities. Diastolic function is normal for age. Wall Motion Rest Echo Findings The basal inferior and basal inferolateral segments are akinetic. Right Ventricle Normal right ventricular cavity size. There is severely decreased right ventricular systolic function. Atria Both atria are normal in size. Aortic Valve There is a normal trileaflet aortic valve. There is no aortic valve stenosis. There is no aortic valve regurgitation. Mitral Valve The mitral valve appears normal. There is no mitral valve regurgitation. There is no mitral valve stenosis. Pulmonic Valve The pulmonic valve is likely normal. Tricuspid Valve There is no tricuspid valve regurgitation. Tricuspid regurgitation envelope is inadequate for calculation of right ventricular systolic pressure. Great Vessels The aortic annulus, sinuses of valsalva, and asc aorta are normal in size. Small plaque is seen in the sino tubular ridge. Venous The inferior vena cava is normal in size and collapses greater than 50% with inspiration. Pericardium/Pleural There is no evidence of pericardial effusion. Prior Study Comparison No significant change compared to prior study dated: 11/24/2020. Recommendations, Care & Conclusions No obvious valvular pathology seen on this study. Measurements 2D Linear Measurements IVSd: 1.18 0.6-0.9/0.6-1.0 cm LVIDd: 4.55 3.9-5.3/4.2-5.9 cm LVIDd Index: 2.42 2.4-3.2/2.2-3.1 cm/m2 LVIDs: 3.40 2.0-3.6 cm LVPWd: 1.05 0.7-1.1 cm LA Diam: 3.50 2.7-3.8/3.0-4.0 cm LAIDs Index: 1.86 1.5-2.3 cm/m2 LV Mass: 226.17 67-162/88-224 g LV Mass Index: 120.30 43-95/49-115 g/m2 LVOT Diam: 2.00 3.0+(-)1.3 cm 2D Systolic Function EF 4C: 62.90 >55% EF 2C: 57.90 >55% EF BiP: 59.70 >55% Mitral Valve MV Pk E: 0.55 MV PK A: 0.72 MV Decel Time: 285.00 E/A: 0.80 E'Lateral: 9.36 E'Medial: 5.66 E/E' Med: 9.80 E/E' Lat: 5.90 PHT: 84.00 MVA PHT: 2.62 Decel [place]: 1.94 Aortic Valve AoV Pk Espinoza: 1.23 AoV Mn Espinoza: 0.90 AoV VTI: 0.26 AoV Pk Grad: 6.00 Aov Mn Grad: 4.00 TAMMY Cont.VTI: 2.41 LVOT LVOT Pk Espinoza: 0.99 LVOT Mn Espinoza: 0.72 LVOT VTI: 0.20 LVOT Pk Grad: 4.00 LVOT Mn Grad: 2.00 LVOT Diam: 2.00 LVOT Area: 3.14 Diastolic Function MV Pk E: 0.55 MV Pk A: 0.72 E/A: 0.80 E'Medial: 5.66 E/E' Med: 9.80 E' Laterial: 9.36 E/E' Lat: 5.90 Right Ventricle TAPSE (mm): 9.70 TVS' Espinoza: 7.70 Tricuspid Valve RA Press: 3.00 Great Vessels Aorta Sinus of Valsalva: 3.50 2.0-3.5 cm Ao Asc: 3.00 2.1-3.4 cm Pulmonary Valve PV Pk Espinoza: 0.97 Peak PV Grad: 4.00 Updated in Other Vendor System with Status of Final Devin Barton MD electronically signed on 06/27/2022 11:15:30 AM with status of Final
== END ==
LOC: HO.CARD 14:54
PROVIDERS: PCP Internal Medicine; Visit Provider Nurse Practitioner Family
DX: I20.8 Other forms of angina pectoris (principal); R06.02 Shortness of breath; R94.31 Abnormal electrocardiogram [ECG] [EKG]
CPT/HCPCS: 93306

== ENCOUNTER → 2022-06-28 07:58 | Outpatient (REF) | payer OTHER, SELFPAY ==
--- NOTE | ~2022-06-28 | NM_ITS ---
Myocardial perfusion study Indication: Shortness of breath with abnormal EKG to evaluate for myocardial ischemia Technique: The patient was brought in for a Lexiscan perfusion study on 06/28/2022. Patient performed low-level exercise and was injected 0.4 mg of Lexiscan intravenously. Within a minute of injection, 25 mCi of sestamibi was given intravenously. Images were obtained using the SPECT gamma camera interlaced with the gating device. Images were obtained in supine position. Resting perfusion study was performed on 06/30/2022. Patient was administered 25 mCi of sestamibi intravenously at rest. Images were then obtained in supine position. Images obtained with and without CT attenuation. Total DLP 90 mGy-cm. Images were processed with the software and compared side to side in short axis, horizontal long axis and vertical long axis views. Findings: The stress perfusion study showed non attenuated images show severely reduce uptake in the basal inferior wall of the LV myocardium. Attenuated corrected images also show severely reduced uptake in the basal inferior wall of the LV myocardium.. The gated study shows normal LV systolic function with calculated LVEF of 61%. LV cavity is normal in size. The gated study shows reduced wall thickening and contraction of basal inferior segments. Resting study shows minimal improvement in uptake in the basal inferior wall of the LV myocardium.. Gating at rest reveals basal inferior wall motion abnormality with ejection fraction at 54%. 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 Severe ischemia also. Similar finding.. NM/NM eliezer perf SPECT rest & str Impression: 1. Myocardial perfusion imaging study shows basal inferior infarction with minimal ischemia 2. Gated LVEF is 61% 3. Transient ischemic dilatation not present EKG is nondiagnostic for ischemia
--- NOTE | 2022-06-28 08:01 | CA_ITS ---
Acquisition Time: 2022-06-28 08:09:55 Total Exercise Time: 00:04:02 Test Indications: ABN EKG Medications: SEE CHART Protocol: RONALD Max HR: 096 BPM 62% of Pred: 153 BPM Max BP: 138/070 mmHG Max Work Load: 5.8 METS Exercise stress test with exercise 4 min 2 sec of Ronald protocol, achieving 58% MPHR, with mild shortness of breath and dizziness with request to stop walking. Treadmill stopped and pt assisted to sitting position. Once symptoms improved, testing changed to a pharmacological stress test with Lexiscan injection, while sitting and kicking his legs, without anginal symptoms, without arrythmia, with nondiagnostic EKG for ischemia. In recovery he reported recurrent dizziness that was treated with Aminophylline 75mg IVP to reverse Lexiscan with resolution of symptom. Nuclear images pending. Test reviewed with Dr Barton Referred By: Miroslava Nam Overread By: MIROSLAVA NAM
== END ==
LOC: HO.CARD 07:58
PROVIDERS: PCP Internal Medicine; Visit Provider Nurse Practitioner Family
DX: I20.8 Other forms of angina pectoris (principal); R06.02 Shortness of breath; R94.31 Abnormal electrocardiogram [ECG] [EKG]
CPT/HCPCS: 78452; 93017; A9500; J0280; J2785

== ENCOUNTER → 2022-08-09 12:44 | Outpatient (BNVA) | payer OTHER, SELFPAY | PROVIDERS: PCP Internal Medicine; Visit Provider Nurse Practitioner Family | DX: I25.118 Atherosclerotic heart disease of native coronary artery with other forms of angina pectoris (principal); R06.02 Shortness of breath; R94.31 Abnormal electrocardiogram [ECG] [EKG]; I10 Essential (primary) hypertension; E78.5 Hyperlipidemia, unspecified; Z95.1 Presence of aortocoronary bypass graft; Z95.5 Presence of coronary angioplasty implant and graft; Z79.82 Long term (current) use of aspirin; Z79.899 Other long term (current) drug therapy | CPT/HCPCS: 99212 ==

== ENCOUNTER 2022-08-11 11:47 | Emergency (ER) | payer OTHER, SELFPAY ==
--- NOTE | ~2022-08-11 | CT_ITS ---
EXAMINATION: CT HEAD WITHOUT CONTRAST CT CERVICAL SPINE WITHOUT CONTRAST CLINICAL INFORMATION: Blood thinners. Evaluate for hemorrhage. COMPARISON: CT head 09/21/2020. TECHNIQUE: Butter Wrapper images were obtained. CT imaging of the head and cervical spine was performed without contrast. Data was reformatted into multiplanar images at the acquisition workstation. This CT examination was performed using dose optimization techniques as appropriate, including one or more of the following: Automated exposure control, iterative reconstruction, and adjustment of technique factors (mA and/or kVp) according to patient size (this includes techniques or standardized protocols for targeted exams where dose is matched to indication/reason for exam). Fleischner Society criteria for the followup of incidental pulmonary nodules was implemented if appropriate. DLP: 1240 mGy-cm. FINDINGS: Head: There is no acute intracranial hemorrhage or abnormal extra-axial collection. No intracranial mass effect or midline shift. Lateral and third ventricles are normal. No hydrocephalus. Callahan-white matter differentiation is preserved. No evidence of acute territorial infarct. The calvarium and skull base are intact. Mastoid air cells and middle ear cavities are well aerated. No active paranasal sinus disease. Cervical spine: Alignment is normal. Vertebral body heights are preserved. No acute fracture. No abnormal prevertebral soft tissue swelling. Grossly no evidence of spinal canal compromise. Soft tissues of the neck are unremarkable. Lung apices are clear. CT/CT cervical spine wo IV con IMPRESSION: Unremarkable CT scan of the head and cervical spinal. No acute intracranial hemorrhage. No acute cervical spine fracture or posttraumatic spinal subluxation.
--- NOTE | ~2022-08-11 | XR_ITS ---
EXAMINATION: XR RIBS, BILATERAL CLINICAL INFORMATION: Fall. Bilateral rib pain. COMPARISON: Most recent chest radiograph dated 04/20/2022. TECHNIQUE: PA view of the chest as well as 3 views of the right and left ribs. FINDINGS: No airspace consolidation. No pleural effusion or pneumothorax. Stable cardiomediastinal silhouette. Sternal wires and mediastinal surgical clips are redemonstrated. No displaced rib fracture. No lytic or blastic osseous lesion. No abnormal soft tissue calcification. XR/XR ribs BI min 4V w CXR1V IMPRESSION: No displaced rib fracture.
--- NOTE | ~2022-08-11 | CT_ITS ---
EXAMINATION: CT HEAD WITHOUT CONTRAST CT CERVICAL SPINE WITHOUT CONTRAST CLINICAL INFORMATION: Blood thinners. Evaluate for hemorrhage. COMPARISON: CT head 09/21/2020. TECHNIQUE: Legal Secretary images were obtained. CT imaging of the head and cervical spine was performed without contrast. Data was reformatted into multiplanar images at the acquisition workstation. This CT examination was performed using dose optimization techniques as appropriate, including one or more of the following: Automated exposure control, iterative reconstruction, and adjustment of technique factors (mA and/or kVp) according to patient size (this includes techniques or standardized protocols for targeted exams where dose is matched to indication/reason for exam). Fleischner Society criteria for the followup of incidental pulmonary nodules was implemented if appropriate. DLP: 1240 mGy-cm. FINDINGS: Head: There is no acute intracranial hemorrhage or abnormal extra-axial collection. No intracranial mass effect or midline shift. Lateral and third ventricles are normal. No hydrocephalus. Callahan-white matter differentiation is preserved. No evidence of acute territorial infarct. The calvarium and skull base are intact. Mastoid air cells and middle ear cavities are well aerated. No active paranasal sinus disease. Cervical spine: Alignment is normal. Vertebral body heights are preserved. No acute fracture. No abnormal prevertebral soft tissue swelling. Grossly no evidence of spinal canal compromise. Soft tissues of the neck are unremarkable. Lung apices are clear. CT/CT head/brain wo IV con IMPRESSION: Unremarkable CT scan of the head and cervical spinal. No acute intracranial hemorrhage. No acute cervical spine fracture or posttraumatic spinal subluxation.
[2022-08-11 11:56] VITALS: BP 128/74; BP 134/73; PULSE 70; PULSE 74; RESP 18; TEMP 37.2; O2SAT 98; O2SAT 99; BMI 27.9
--- NOTE | 2022-08-11 12:19 | PC.NURSE ---
Domo NAIR from [facility] therapist appointment for reports of bilateral rib, neck and low back pain after slip and fall last night around 1900. A&Ox3 skin pwd respirations even unlabored. Denies headstrike, denies LOC, on thinners. No point tenderness, no obvious deformities, moving all extremities without difficulty. Awaiting primary provider eval, aware of plan of care.
--- NOTE | 2022-08-11 12:46 | ED_ITS ---
HPI - Fall General Chief Complaint: Fall Stated Complaint: FALL T-1,NECK/BACK PAIN Time Seen by Provider: 08/11/22 12:19 History of Present Illness HPI Narrative: patient complains of chest pain after a fall which happened yesterday as he was exiting a store He fell forward hitting his chest on the ground and now complains of pain in his chest with deep breath and coughing, and moovement The patient has a cardiac history of prior heart attack and angina and is followed by a microsoft access developer He does get episodes of chest pain regularly in his daily life where he occasionally has to take a nitro, he also says he has had an episode this this morning same as previous episodes of angina which resolved and he has no chest pain now except the pain with deep breath and coughing Related Data Home Medications Medication Instructions Recorded Confirmed acarbose 50 mg tablet 50 mg PO BID 06/23/20 05/09/22 aspirin 81 mg tablet,delayed 81 mg PO DAILY 06/23/20 08/09/22 release (Adult Low Dose Aspirin) atorvastatin 80 mg tablet 80 mg PO DAILY 06/23/20 08/09/22 clonazepam 1 mg tablet 1 mg PO DAILY 06/23/20 08/09/22 loratadine 10 mg tablet 10 mg PO DAILY 06/23/20 08/09/22 nicotine 21 mg/24 hr daily 1 patch transdermal DAILY 06/23/20 05/09/22 transdermal patch quetiapine 100 mg tablet 100 mg PO DAILY 11/22/20 08/09/22 bupropion HCl 150 mg 24 hr tablet, 150 mg PO DAILY 10/18/21 08/09/22 extended release albuterol sulfate 2.5 mg/3 mL 3 ml inhalation DIRECTED 04/06/22 08/09/22 (0.083 %) solution for nebulization diclofenac sodium 1 % topical gel 1 ea topical BID 04/06/22 08/09/22 dulaglutide 0.75 mg/0.5 mL 1 ea subcut QWEEK 04/06/22 08/09/22 subcutaneous pen injector ([facility]) clobetasol 0.05 % topical ointment 1 applic topical BID 04/20/22 08/09/22 acetaminophen 650 mg 650 mg PO Q8H 05/09/22 08/09/22 tablet,extended release albuterol sulfate 90 mcg/actuation 2 puff inhalation Q6H PRN 05/09/22 08/09/22 aerosol inhaler (Ventolin HFA) cyclobenzaprine 10 mg tablet 10 mg PO TID 05/09/22 08/09/22 insulin glargine 100 unit/mL (3 50 unit subcut QPM 05/09/22 08/09/22 mL) subcutaneous pen (Lantus Solostar U-100 Insulin) multivitamin (One Daily 1 tab PO DAILY 05/15/22 08/09/22 Multivitamin tablet) naloxone 4 mg/actuation nasal spray 0 spray intranasal 05/15/22 08/09/22 ticagrelor 60 mg tablet (Brilinta) 0 mg PO DAILY PRN 05/15/22 ticagrelor 90 mg tablet (Brilinta) 60 mg PO BID 05/15/22 08/09/22 fluticasone furoate 100 1 inh inhalation DAILY 05/19/22 08/09/22 mcg-vilanterol 25 mcg/dose inhalation powder (Breo Ellipta) Previous Rx's Medication Instructions Recorded theophylline 400 mg 400 mg PO DAILY 30 days #30 tabs 02/22/22 tablet,extended release 24 hr amlodipine 2.5 mg tablet 2.5 mg PO DAILY 90 days #90 tabs 04/05/22 losartan 25 mg tablet 25 mg PO DAILY #90 tabs 04/05/22 ranolazine 1,000 mg 1,000 mg PO BID 90 days #180 tabs 04/05/22 tablet,extended release,12 hr (Ranexa) psyllium husk (aspartame) 3.4 gram 3.4 g PO DAILY #30 ea 04/22/22 oral powder packet (Metamucil Fiber Singles) docusate sodium 100 mg capsule 100 mg PO DAILY #30 caps 04/26/22 metoprolol tartrate 50 mg tablet 50 mg PO BID #60 tabs 05/05/22 prednisone 10 mg tablet 40 mg PO DAILY 5 days #20 tabs 05/19/22 ezetimibe 10 mg tablet 10 mg PO DAILY #30 tabs 05/29/22 isosorbide mononitrate 120 mg 120 mg PO QAM #30 tabs 06/29/22 tablet,extended release 24 hr nitroglycerin 0.4 mg sublingual 0.4 mg sublingual Q5M #25 ea 06/29/22 tablet pantoprazole 40 mg tablet,delayed 40 mg PO DAILY #30 tabs 06/29/22 release simethicone 180 mg capsule 180 mg PO BID PRN for abdominal 07/03/22 pain #60 caps sennosides 8.6 mg capsule (senna) 8.6 mg PO BEDTIME #30 caps 07/04/22 cyclobenzaprine 5 mg tablet 5 mg PO TID PRN muscle spasm #10 08/11/22 tabs oxycodone 5 mg tablet 5 mg PO Q6H PRN pain #10 tabs 08/11/22 Allergies Allergy/AdvReac Type Severity Reaction Status Date / Time Penicillins Allergy Mild RASH Verified 05/19/22 12:50 ciprofloxacin [From Cipro] Allergy Unknown RASH Verified 05/19/22 12:50 Review of Systems Review of Systems: Positive for chest pain with deep breath cough and movement after a fall Negatives are no fever no chills no dizziness or weakness no fainting no feeling faint no loss of consciousness no neck pain no numbness weakness or tingling no back pain no extremity injuries no leg swelling no vomiting no diaphoresis no change in exertional capacity Yes all other systems are reviewed and are negative PMFSH Past Medical History Source: nursing notes reviewed Medical History Abnormal CT scan, gastrointestinal tract Angina of effort Arthritis COPD (chronic obstructive pulmonary disease) Coronary artery disease Diabetes mellitus, type 2 Dizziness HLD (hyperlipidemia) HTN (hypertension) Memory difficulties On anticoagulant therapy On beta russ at home Peripheral vascular disease Surgical History H/O coronary artery bypass surgery Hx of colonoscopy S/P CABG x 3 (~09/2018) S/P cardiac cath (~08/2019) S/P cardiac cath (~04/2020) S/P cardiac catheterization (~12/2020) Stented coronary artery Social History Social History Household Members: Children Housing: House Alcohol intake: current Alcohol intake frequency: holidays/special occasions only Patient Tobacco Use Status: Current everyday Tobacco user Tobacco use type: Cigarette Cigarette Packs Per Day: 1 Cigarettes Per Day: 8 Advance Directives Date on File: 04/24/22 service: No Current occupational status: disabled Physical Exam Vital Signs: Vital Signs: Last Vital Signs Temp 97.6 F 08/11/22 14:49 Pulse 63 08/11/22 14:49 Resp 18 08/11/22 14:49 BP 158/77 H 08/11/22 14:49 Pulse Ox 100 08/11/22 14:49 O2 Del Method 08/11/22 14:49 BMI result Body Mass Index 27.9 General appearance is comfortable no acute distress Head is normocephalic atraumatic Neck is supple nontender The chest is clear to auscultation, there is pain with deep breath, pain is easily reproduced with movement in the chest wall, there was tenderness to the chest wall, skin was normal and intact no bruising, lung sounds were symmetric and equal Heart no murmur Abdomen soft nontender Extremities full range of motion x4 Skin no lacerations Neuro no motor or sensory deficits Course Course Course Narrative: EKG was a normal sinus rhythm no acute ST changes, intervals were lyle Chest and rib x-ray did not show any displaced rib fracture, no evidence of traumatic bony injury, is CT of head was negative with no intracranial bleed no skull fracture, CT of cervical spine was negative no fractures Troponins were negative initial was 3.7 and repeat was under 3.5 no evidence of heart attack today Patient does experience chest pain/angina over recent months and is followed by a microsoft access developer for this, he has had no episodes of this type of chest pain that are any different than the prior episodes, but today he does have a different chest pain which is reproducible musculoskeletal pain after falling forward on his chest There were no other significant lab abnormalities and patient was discharged with analgesics and advised to follow with his microsoft access developer for his angina Medications Administered Discontinued Medications Generic Name Dose Route Start Last Admin Trade Name Freq PRN Reason Stop Dose Admin Oxycodone HCl 5 mg 08/11/22 13:08 08/11/22 13:55 Oxycodone Hcl Immed Release 5 Mg Tablet PO 08/11/22 13:09 5 mg ONCE ONE Administration Medical Decision Making Lab Data MDM Lab Attestation statement: I reviewed the patient's lab results. Result Diagrams: 08/11/22 13:19 08/11/22 13:19 Labs: Lab Results 08/11/22 08/11/22 08/11/22 Range/Units 13:19 13:19 13:19 WBC 5.7 (4.8-10.8) X10*3/uL RBC 4.44 L (4.60-5.80) X10*6/uL Hgb 14.0 (14.0-18.0) g/dl Hct 42.0 (42.0-52.0) % MCV 94.6 (80.0-98.0) fL MCH 31.5 (27.0-33.0) pg MCHC 33.3 (31.0-36.0) g/dl RDW 12.4 (11.0-16.0) % Plt Count 175 (160-400) X10*3/uL MPV 10.2 (9.4-12.4) fL Immature Gran % (Auto) 0.3 (0.0-0.4) % Neut % (Auto) 66.2 (45-73) % Lymph % (Auto) 22.9 (20-40) % Bracken % (Auto) 8.4 (2-11) % Eos % (Auto) 1.7 (0-4) % Baso % (Auto) 0.5 (0-2) % Lymph # (Auto) 1.3 (1.2-4.9) X10*3/uL Bracken # (Auto) 0.5 (0.1-1.2) X10*3/uL Eos # (Auto) 0.1 (0.0-0.4) X10*3/uL Baso # (Auto) 0.0 (0.0-0.2) X10*3/uL Abs Immat Gran (auto) 0.02 (0.00-0.03) X10*3/uL Absolute Neuts (auto) 3.8 (2.0-8.3) x10*3/uL Absolute Nucleated RBC 0.000 (0.0-0.012) X10*3/uL Nucleated RBC % (auto) 0.0 (0.0-0.2) /100WBC Sodium 143 (135-145) mmol/L Potassium 3.9 (3.3-5.1) mmol/L Chloride 111 H (96-108) mmol/L Carbon Dioxide 23 (22-29) mmol/L Anion Gap 13 (12-20) BUN 12 (9-16) mg/dL Creatinine 0.87 (0.5-1.4) mg/dL Estim Creat Clear Calc 81.1 Estimated GFR > 60 Random Glucose 101 (60-115) mg/dL Calcium 9.3 D (8.4-10.2) mg/dL Troponin I High Sens 3.7 (<3.5-35.0) ng/L 08/11/22 Range/Units 16:33 WBC (4.8-10.8) X10*3/uL RBC (4.60-5.80) X10*6/uL Hgb (14.0-18.0) g/dl Hct (42.0-52.0) % MCV (80.0-98.0) fL MCH (27.0-33.0) pg MCHC (31.0-36.0) g/dl RDW (11.0-16.0) % Plt Count (160-400) X10*3/uL MPV (9.4-12.4) fL Immature Gran % (Auto) (0.0-0.4) % Neut % (Auto) (45-73) % Lymph % (Auto) (20-40) % Bracken % (Auto) (2-11) % Eos % (Auto) (0-4) % Baso % (Auto) (0-2) % Lymph # (Auto) (1.2-4.9) X10*3/uL Bracken # (Auto) (0.1-1.2) X10*3/uL Eos # (Auto) (0.0-0.4) X10*3/uL Baso # (Auto) (0.0-0.2) X10*3/uL Abs Immat Gran (auto) (0.00-0.03) X10*3/uL Absolute Neuts (auto) (2.0-8.3) x10*3/uL Absolute Nucleated RBC (0.0-0.012) X10*3/uL Nucleated RBC % (auto) (0.0-0.2) /100WBC Sodium (135-145) mmol/L Potassium (3.3-5.1) mmol/L Chloride (96-108) mmol/L Carbon Dioxide (22-29) mmol/L Anion Gap (12-20) BUN (9-16) mg/dL Creatinine (0.5-1.4) mg/dL Estim Creat Clear Calc Estimated GFR Random Glucose (60-115) mg/dL Calcium (8.4-10.2) mg/dL Troponin I High Sens < 3.5 (<3.5-35.0) ng/L Discharge Plan Discharge Clinical Impression: Chest pain Patient Disposition: Home, Self-Care Additional Instructions: your workup today did not indicate any heart attack today The pain with deep breath and coughing after a fall is likely strained muscles in your chest The other chest pain that you sometimes get that is not associated with cough or deep breath needs to be followed by her microsoft access developer so call them and let them know that you were seen in the ER for this Return to the ER any time for worsening chest pain difficulty breathing any worse condition or any concerns For sore muscles in the chest I wrote a prescription for Tylenol and oxycodone, but you should follow closely with microsoft access developer Prescriptions: New oxycodone 5 mg tablet 5 mg PO Q6H PRN (Reason: pain) Qty: 10 0RF Rx Instructions: Partial Fill upon patient request. cyclobenzaprine 5 mg tablet 5 mg PO TID PRN (Reason: muscle spasm) Qty: 10 0RF No Action losartan 25 mg tablet 25 mg PO DAILY Qty: 90 1RF amlodipine 2.5 mg tablet 2.5 mg PO DAILY 90 Days Qty: 90 1RF ranolazine [Ranexa] 1,000 mg tablet extended release 12 hr 1,000 mg PO BID 90 Days Qty: 180 1RF metoprolol tartrate 50 mg tablet 50 mg PO BID Qty: 60 5RF ezetimibe 10 mg tablet 10 mg PO DAILY Qty: 30 5RF nitroglycerin 0.4 mg tablet, sublingual 0.4 mg sublingual Q5M Qty: 25 2RF isosorbide mononitrate 120 mg tablet extended release 24 hr 120 mg PO QAM Qty: 30 5RF pantoprazole 40 mg tablet,delayed release (DR/EC) 40 mg PO DAILY Qty: 30 3RF simethicone 180 mg capsule 180 mg PO BID PRN (Reason: for abdominal pain) Qty: 60 0RF senna 8.6 mg capsule 8.6 mg PO BEDTIME Qty: 30 0RF diclofenac sodium 1 % gel 1 ea topical BID Trulicity 0.75 mg/0.5 mL pen injector 1 ea subcut QWEEK albuterol sulfate 2.5 mg /3 mL (0.083 %) solution for nebulization 3 ml inhalation DIRECTED clobetasol 0.05 % ointment 1 applic topical BID Metamucil Fiber Singles 3.4 gram Powder In Packet 3.4 g PO DAILY Qty: 30 0RF quetiapine 100 mg tablet 100 mg PO DAILY bupropion HCl 150 mg tablet extended release 24 hr 150 mg PO DAILY acarbose 50 mg tablet 50 mg PO BID loratadine 10 mg tablet 10 mg PO DAILY clonazepam 1 mg tablet 1 mg PO DAILY aspirin [Adult Low Dose Aspirin] 81 mg tablet,delayed release (DR/EC) 81 mg PO DAILY nicotine 21 mg/24 hr patch 24 hour 1 patch transdermal DAILY atorvastatin 80 mg tablet 80 mg PO DAILY fluticasone furoate-vilanterol [Breo Ellipta] 100-25 mcg/dose blister with device 1 inh inhalation DAILY prednisone 10 mg tablet 40 mg PO DAILY 5 Days Qty: 20 0RF docusate sodium 100 mg capsule 100 mg PO DAILY Qty: 30 3RF theophylline 400 mg tablet extended release 24 hr 400 mg PO DAILY 30 Days Qty: 30 6RF insulin glargine [Lantus Solostar U-100 Insulin] 100 unit/mL (3 mL) insulin pen 50 unit subcut QPM acetaminophen 650 mg tablet extended release 650 mg PO Q8H cyclobenzaprine 10 mg tablet 10 mg PO TID albuterol sulfate [Ventolin HFA] 90 mcg/actuation HFA aerosol inhaler 2 puff inhalation Q6H PRN Brilinta 60 mg tablet 0 mg PO DAILY PRN multivitamin [One Daily Multivitamin] Tablet 1 tab PO DAILY naloxone 4 mg/actuation spray,non-aerosol 0 spray intranasal Brilinta 90 mg tablet 60 mg PO BID Interventions: ED Discharge Assessment Last Done: 08/11/22 18:02 Discharge Date/Time: 08/11/22 18:02
--- NOTE | 2022-08-11 12:50 | ECG_ITS ---
Test Reason : CHEST PAIN Blood Pressure : / mmHG Vent. Rate : 064 BPM Atrial Rate : 064 BPM P-R Int : 156 ms QRS Dur : 094 ms QT Int : 394 ms P-R-T Axes : 065 043 -14 degrees QTc Int : 406 ms Normal sinus rhythm Nonspecific T wave abnormality Abnormal ECG When compared with ECG of 20-APR-2022 09:13, Non-specific change in ST segment in Anterior leads Nonspecific T wave abnormality has replaced inverted T waves in Anterior leads Referred By: Jose G Dixon Electronically Signed By:SILVIA NIETO
[2022-08-11 13:24] LABS: MANUAL DIFF FLAG NO
[2022-08-11 13:25] LABS: Basophils Percent Auto 0.5 % (0-2); Eosinophils Absolute Auto 0.1 X10*3/uL (0.0-0.4); Eosinophils Percent Auto 1.7 % (0-4); Imm Gran Abs Auto 0.02 X10*3/uL (0.00-0.03); Imm Gran Pct Auto 0.3 % (0.0-0.4); Lymphocytes Absolute Auto 1.3 X10*3/uL (1.2-4.9); Lymphocytes Percent Auto 22.9 % (20-40); Mean Corpuscular HGB Conc 33.3 g/dl (31.0-36.0); Mean Corpuscular Hemoglobin 31.5 pg (27.0-33.0); Mean Corpuscular Volume 94.6 fL (80.0-98.0); Mean Platelet Volume 10.2 fL (9.4-12.4); Monocytes Absolute Auto 0.5 X10*3/uL (0.1-1.2); Monocytes Percent Auto 8.4 % (2-11); Neutrophils Absolute Auto 3.8 x10*3/uL (2.0-8.3); Neutrophils Percent Auto 66.2 % (45-73); Platelet Count 175 X10*3/uL (160-400); Red Blood Count 4.44 X10*6/uL (4.60-5.80); Red Cell Distribution Width 12.4 % (11.0-16.0); White Blood Count 5.7 X10*3/uL (4.8-10.8)
[2022-08-11 13:54] LABS: Anion Gap 13 (12-20); Blood Urea Nitrogen 12 mg/dL (9-16); Calcium 9.3 mg/dL (8.4-10.2); Carbon Dioxide 23 mmol/L (22-29); Chloride 111 mmol/L (96-108); Creatinine Clr Calc Pharmacy 81.1; Estimated Glomerular Filt Rate > 60; Glucose Random 101 mg/dL (60-115); Potassium 3.9 mmol/L (3.3-5.1); Sodium 143 mmol/L (135-145)
[2022-08-11] MEDS: oxyCODONE HCl Immed Release 5 MG TABLET PO (13:55)
[2022-08-11 13:56] LABS: Troponin-I High Sensitivity 3.7 ng/L (<3.5-35.0)
--- NOTE | 2022-08-11 13:59 | PC.NURSE ---
Pt medicated per MAR, awaiting imaging results, aware of plan of care, no s/s obvious distress.
[2022-08-11 14:49] VITALS: BP 158/77; PULSE 63; RESP 18; TEMP 36.4; O2SAT 100
--- NOTE | 2022-08-11 15:50 | PC.NURSE ---
Pt ambulatory to bathroom steady gait. Awaiting repeat troponin result.
[2022-08-11 17:10] LABS: Troponin-I High Sensitivity < 3.5 ng/L (<3.5-35.0)
== END 2022-08-11 18:02 | disposition home or self-care (01) ==
PROVIDERS: Physician Assistant Medical; Emergency Provider Student in an Organized Health Care Education/Training Program; PCP Internal Medicine
DX: R07.9 Chest pain, unspecified (principal); E11.9 Type 2 diabetes mellitus without complications; E78.5 Hyperlipidemia, unspecified; I10 Essential (primary) hypertension; F17.210 Nicotine dependence, cigarettes, uncomplicated; Z79.01 Long term (current) use of anticoagulants; Z79.02 Long term (current) use of antithrombotics/antiplatelets
CPT/HCPCS: 36415; 70450; 71111; 72125; 80048; 84484; 85025; 93005; 99284; 99285

== ENCOUNTER 2022-08-21 13:47 | Emergency (ER) | payer OTHER, SELFPAY ==
[2022-08-21 13:54] VITALS: BP 127/76; PULSE 77; O2SAT 100
[2022-08-21 14:48] VITALS: BP 193/89; PULSE 79; RESP 20; TEMP 37.2; O2SAT 100; BMI 27.7
--- NOTE | 2022-08-21 14:52 | ED_ITS ---
HPI - General Adult General Chief complaint: General Medical Stated complaint: RIB PAIN Time Seen by Provider: 08/21/22 15:08 Related Data Home Medications Medication Instructions Recorded Confirmed acarbose 50 mg tablet 50 mg PO BID 06/23/20 05/09/22 aspirin 81 mg tablet,delayed 81 mg PO DAILY 06/23/20 08/09/22 release (Adult Low Dose Aspirin) atorvastatin 80 mg tablet 80 mg PO DAILY 06/23/20 08/09/22 clonazepam 1 mg tablet 1 mg PO DAILY 06/23/20 08/09/22 loratadine 10 mg tablet 10 mg PO DAILY 06/23/20 08/09/22 nicotine 21 mg/24 hr daily 1 patch transdermal DAILY 06/23/20 05/09/22 transdermal patch quetiapine 100 mg tablet 100 mg PO DAILY 11/22/20 08/09/22 bupropion HCl 150 mg 24 hr tablet, 150 mg PO DAILY 10/18/21 08/09/22 extended release albuterol sulfate 2.5 mg/3 mL 3 ml inhalation DIRECTED 04/06/22 08/09/22 (0.083 %) solution for nebulization diclofenac sodium 1 % topical gel 1 ea topical BID 04/06/22 08/09/22 dulaglutide 0.75 mg/0.5 mL 1 ea subcut QWEEK 04/06/22 08/09/22 subcutaneous [facility] clobetasol 0.05 % topical ointment 1 applic topical BID 04/20/22 08/09/22 acetaminophen 650 mg 650 mg PO Q8H 05/09/22 08/09/22 tablet,extended release albuterol sulfate 90 mcg/actuation 2 puff inhalation Q6H PRN 05/09/22 08/09/22 aerosol inhaler (Ventolin HFA) cyclobenzaprine 10 mg tablet 10 mg PO TID 05/09/22 08/09/22 insulin glargine 100 unit/mL (3 50 unit subcut QPM 05/09/22 08/09/22 mL) subcutaneous pen (Lantus Solostar U-100 Insulin) multivitamin (One Daily 1 tab PO DAILY 05/15/22 08/09/22 Multivitamin tablet) naloxone 4 mg/actuation nasal spray 0 spray intranasal 05/15/22 08/09/22 ticagrelor 60 mg tablet (Brilinta) 0 mg PO DAILY PRN 05/15/22 ticagrelor 90 mg tablet (Brilinta) 60 mg PO BID 05/15/22 08/09/22 fluticasone furoate 100 1 inh inhalation DAILY 05/19/22 08/09/22 mcg-vilanterol 25 mcg/dose inhalation powder (Breo Ellipta) Previous Rx's Medication Instructions Recorded theophylline 400 mg 400 mg PO DAILY 30 days #30 tabs 02/22/22 tablet,extended release 24 hr amlodipine 2.5 mg tablet 2.5 mg PO DAILY 90 days #90 tabs 04/05/22 losartan 25 mg tablet 25 mg PO DAILY #90 tabs 04/05/22 ranolazine 1,000 mg 1,000 mg PO BID 90 days #180 tabs 04/05/22 tablet,extended release,12 hr (Ranexa) psyllium husk (aspartame) 3.4 gram 3.4 g PO DAILY #30 ea 04/22/22 oral powder packet (Metamucil Fiber Singles) docusate sodium 100 mg capsule 100 mg PO DAILY #30 caps 04/26/22 metoprolol tartrate 50 mg tablet 50 mg PO BID #60 tabs 05/05/22 prednisone 10 mg tablet 40 mg PO DAILY 5 days #20 tabs 05/19/22 ezetimibe 10 mg tablet 10 mg PO DAILY #30 tabs 05/29/22 isosorbide mononitrate 120 mg 120 mg PO QAM #30 tabs 06/29/22 tablet,extended release 24 hr nitroglycerin 0.4 mg sublingual 0.4 mg sublingual Q5M #25 ea 06/29/22 tablet pantoprazole 40 mg tablet,delayed 40 mg PO DAILY #30 tabs 06/29/22 release sennosides 8.6 mg capsule (senna) 8.6 mg PO BEDTIME #30 caps 07/04/22 cyclobenzaprine 5 mg tablet 5 mg PO TID PRN muscle spasm #10 08/11/22 tabs oxycodone 5 mg tablet 5 mg PO Q6H PRN pain #10 tabs 08/11/22 cyclobenzaprine 10 mg tablet 10 mg PO TID PRN muscle spasm #20 08/21/22 tabs ibuprofen 800 mg tablet 800 mg PO Q8H PRN pain #30 tabs 08/21/22 oxycodone 10 mg tablet 10 mg PO TID PRN pain #9 tabs 08/21/22 simethicone 180 mg capsule 180 mg PO BID PRN for abdominal 08/25/22 pain #60 caps Allergies Allergy/AdvReac Type Severity Reaction Status Date / Time Penicillins Allergy Mild RASH Verified 05/19/22 12:50 ciprofloxacin [From Cipro] Allergy Unknown RASH Verified 05/19/22 12:50 PMFSH Past Medical History Medical History Abnormal CT scan, gastrointestinal tract Angina of effort Arthritis COPD (chronic obstructive pulmonary disease) Coronary artery disease Diabetes mellitus, type 2 Dizziness HLD (hyperlipidemia) HTN (hypertension) Memory difficulties On anticoagulant therapy On beta russ at home Peripheral vascular disease Surgical History H/O coronary artery bypass surgery Hx of colonoscopy S/P CABG x 3 (~09/2018) S/P cardiac cath (~08/2019) S/P cardiac cath (~04/2020) S/P cardiac catheterization (~12/2020) Stented coronary artery Social History Social History Household Members: Children Housing: House Alcohol intake: current Alcohol intake frequency: holidays/special occasions only Patient Tobacco Use Status: Current everyday Tobacco user Tobacco use type: Cigarette Cigarette Packs Per Day: 1 Cigarettes Per Day: 8 Advance Directives: Yes Advance Directives on File: Yes Advance Directives Date on File: 04/24/22 service: No Current occupational status: disabled Physical Exam ED Vital Signs: BMI result Body Mass Index 27.7 Course Course Course Narrative: RME: 67 yold male presents to the ED for RIB pain with pleurisy. Patient labs ordered. Patient brought to the main ED by nurse due to patient stating some pysch statments Medications Administered Discontinued Medications Generic Name Dose Route Start Last Admin Trade Name Freq PRN Reason Stop Dose Admin Cyclobenzaprine HCl 10 mg 08/21/22 15:47 08/21/22 15:53 Cyclobenzaprine Hcl 10 Mg Tablet PO 08/21/22 15:48 10 mg ONCE ONE Administration Ketorolac Tromethamine 30 mg 12/26/22 15:47 08/21/22 15:53 Ketorolac Tromethamine 30 Mg/Ml Vial IM 08/21/22 15:48 30 mg ONCE ONE Administration Medical Decision Making Lab Data 08/21/22 17:23 08/21/22 17:10 Labs: Lab Results 08/21/22 08/21/22 08/21/22 Range/Units 17:10 17:23 17:23 WBC 6.0 (4.8-10.8) X10*3/uL RBC 4.16 L (4.60-5.80) X10*6/uL Hgb 13.4 L (14.0-18.0) g/dl Hct 39.6 L (42.0-52.0) % MCV 95.2 (80.0-98.0) fL MCH 32.2 (27.0-33.0) pg MCHC 33.8 (31.0-36.0) g/dl RDW 12.1 (11.0-16.0) % Plt Count 160 (160-400) X10*3/uL MPV 10.7 (9.4-12.4) fL Immature Gran % (Auto) 0.2 (0.0-0.4) % Neut % (Auto) 66.0 (45-73) % Lymph % (Auto) 22.3 (20-40) % Shoshone % (Auto) 9.5 (2-11) % Eos % (Auto) 1.7 (0-4) % Baso % (Auto) 0.3 (0-2) % Lymph # (Auto) 1.3 (1.2-4.9) X10*3/uL [place]oshone # (Auto) 0.6 (0.1-1.2) X10*3/uL Eos # (Auto) 0.1 (0.0-0.4) X10*3/uL Baso # (Auto) 0.0 (0.0-0.2) X10*3/uL Abs Immat Gran (auto) 0.01 (0.00-0.03) X10*3/uL Absolute Neuts (auto) 4.0 (2.0-8.3) x10*3/uL Absolute Nucleated RBC 0.000 (0.0-0.012) X10*3/uL Nucleated RBC % (auto) 0.0 (0.0-0.2) /100WBC PT 11.5 (10.0-13.1) SEC INR 1.0 (0.9-1.1) APTT 31.7 (26.0-36.4) SEC D-Dimer High Sensitivty 242 NG/ML Sodium 138 (135-145) mmol/L Potassium 4.3 (3.3-5.1) mmol/L Chloride 105 (96-108) mmol/L Carbon Dioxide 27 (22-29) mmol/L Anion Gap 10 L (12-20) BUN 22 H (9-16) mg/dL Creatinine 1.22 (0.5-1.4) mg/dL Estim Creat Clear Calc 57.7 Estimated GFR 59 Random Glucose 119 H (60-115) mg/dL Calcium 9.0 (8.4-10.2) mg/dL Total Bilirubin 0.4 (0.0-1.0) mg/dL AST 16 (5-37) U/L ALT 15 (0-40) U/L Alkaline Phosphatase 103 (39-117) U/L Troponin I High Sens (<3.5-35.0) ng/L Total Protein 5.8 L (6.5-8.0) g/dL Albumin 3.8 (3.5-5.0) g/dL Lipase 23 (8-78) U/L // Range/Units 17:23 WBC (4.8-10.8) X10*3/uL RBC (4.60-5.80) X10*6/uL Hgb (14.0-18.0) g/dl Hct (42.0-52.0) % MCV (80.0-98.0) fL MCH (27.0-33.0) pg MCHC (31.0-36.0) g/dl RDW (11.0-16.0) % Plt Count (160-400) X10*3/uL MPV (9.4-12.4) fL Immature Gran % (Auto) (0.0-0.4) % Neut % (Auto) (45-73) % Lymph % (Auto) (20-40) % Shoshone % (Auto) (2-11) % Eos % (Auto) (0-4) % Baso % (Auto) (0-2) % Lymph # (Auto) (1.2-4.9) X10*3/uL [place] # (Auto) (0.1-1.2) X10*3/uL Eos # (Auto) (0.0-0.4) X10*3/uL Baso # (Auto) (0.0-0.2) X10*3/uL Abs Immat Gran (auto) (0.00-0.03) X10*3/uL Absolute Neuts (auto) (2.0-8.3) x10*3/uL Absolute Nucleated RBC (0.0-0.012) X10*3/uL Nucleated RBC % (auto) (0.0-0.2) /100WBC PT (10.0-13.1) SEC INR (0.9-1.1) APTT (26.0-36.4) SEC D-Dimer High Sensitivty NG/ML Sodium (135-145) mmol/L Potassium (3.3-5.1) mmol/L Chloride (96-108) mmol/L Carbon Dioxide (22-29) mmol/L Anion Gap (12-20) BUN (9-16) mg/dL Creatinine (0.5-1.4) mg/dL Estim Creat Clear Calc Estimated GFR Random Glucose (60-115) mg/dL Calcium (8.4-10.2) mg/dL Total Bilirubin (0.0-1.0) mg/dL AST (5-37) U/L ALT (0-40) U/L Alkaline Phosphatase (39-117) U/L Troponin I High Sens < 3.5 (<3.5-35.0) ng/L Total Protein (6.5-8.0) g/dL Albumin (3.5-5.0) g/dL Lipase (8-78) U/L Discharge Plan Discharge Clinical Impression: Contusion of rib on right side Patient Disposition: Home, Self-Care Instructions: Rib Contusion (ED) Additional Instructions: make an active effort to take at least 10 deep breaths every hour. Return if worse or if you think you are at increased risk of harming herself or others stop taking diclofenac, and start taking ibuprofen Prescriptions: New oxycodone 10 mg tablet 10 mg PO TID PRN (Reason: pain) Qty: 9 0RF Rx Instructions: Partial Fill upon patient request. cyclobenzaprine 10 mg tablet 10 mg PO TID PRN (Reason: muscle spasm) Qty: 20 0RF ibuprofen 800 mg tablet 800 mg PO Q8H PRN (Reason: pain) Qty: 30 0RF No Action losartan 25 mg tablet 25 mg PO DAILY Qty: 90 1RF amlodipine 2.5 mg tablet 2.5 mg PO DAILY 90 Days Qty: 90 1RF ranolazine [Ranexa] 1,000 mg tablet extended release 12 hr 1,000 mg PO BID 90 Days Qty: 180 1RF metoprolol tartrate 50 mg tablet 50 mg PO BID Qty: 60 5RF ezetimibe 10 mg tablet 10 mg PO DAILY Qty: 30 5RF nitroglycerin 0.4 mg tablet, sublingual 0.4 mg sublingual Q5M Qty: 25 2RF isosorbide mononitrate 120 mg tablet extended release 24 hr 120 mg PO QAM Qty: 30 5RF pantoprazole 40 mg tablet,delayed release (DR/EC) 40 mg PO DAILY Qty: 30 3RF senna 8.6 mg capsule 8.6 mg PO BEDTIME Qty: 30 0RF simethicone 180 mg capsule 180 mg PO BID PRN (Reason: for abdominal pain) Qty: 60 3RF diclofenac sodium 1 % gel 1 ea topical BID Trulicity 0.75 mg/0.5 mL pen injector 1 ea subcut QWEEK albuterol sulfate 2.5 mg /3 mL (0.083 %) solution for nebulization 3 ml inhalation DIRECTED clobetasol 0.05 % ointment 1 applic topical BID Metamucil Fiber Singles 3.4 gram Powder In Packet 3.4 g PO DAILY Qty: 30 0RF oxycodone 5 mg tablet 5 mg PO Q6H PRN (Reason: pain) Qty: 10 0RF Rx Instructions: Partial Fill upon patient request. cyclobenzaprine 5 mg tablet 5 mg PO TID PRN (Reason: muscle spasm) Qty: 10 0RF quetiapine 100 mg tablet 100 mg PO DAILY bupropion HCl 150 mg tablet extended release 24 hr 150 mg PO DAILY acarbose 50 mg tablet 50 mg PO BID loratadine 10 mg tablet 10 mg PO DAILY clonazepam 1 mg tablet 1 mg PO DAILY aspirin [Adult Low Dose Aspirin] 81 mg tablet,delayed release (DR/EC) 81 mg PO DAILY nicotine 21 mg/24 hr patch 24 hour 1 patch transdermal DAILY atorvastatin 80 mg tablet 80 mg PO DAILY fluticasone furoate-vilanterol [Breo Ellipta] 100-25 mcg/dose blister with device 1 inh inhalation DAILY prednisone 10 mg tablet 40 mg PO DAILY 5 Days Qty: 20 0RF docusate sodium 100 mg capsule 100 mg PO DAILY Qty: 30 3RF theophylline 400 mg tablet extended release 24 hr 400 mg PO DAILY 30 Days Qty: 30 6RF insulin glargine [Lantus Solostar U-100 Insulin] 100 unit/mL (3 mL) insulin pen 50 unit subcut QPM acetaminophen 650 mg tablet extended release 650 mg PO Q8H cyclobenzaprine 10 mg tablet 10 mg PO TID albuterol sulfate [Ventolin HFA] 90 mcg/actuation HFA aerosol inhaler 2 puff inhalation Q6H PRN Brilinta 60 mg tablet 0 mg PO DAILY PRN multivitamin [One Daily Multivitamin] Tablet 1 tab PO DAILY naloxone 4 mg/actuation spray,non-aerosol 0 spray intranasal Brilinta 90 mg tablet 60 mg PO BID Interventions: ED Discharge Assessment Last Done: 08/21/22 18:18 Discharge Date/Time: 08/21/22 18:18
--- NOTE | 2022-08-21 14:54 | ECG_ITS ---
Test Reason : Right sided chest pain Blood Pressure : / mmHG Vent. Rate : 055 BPM Atrial Rate : 055 BPM P-R Int : 158 ms QRS Dur : 094 ms QT Int : 406 ms P-R-T Axes : 067 050 055 degrees QTc Int : 388 ms Sinus bradycardia Otherwise normal ECG When compared with ECG of 11-AUG-2022 13:02, Non-specific change in ST segment in Inferior leads Nonspecific T wave abnormality has replaced inverted T waves in Lateral leads Referred By: Deric Soares Electronically Signed By:Johnson Dutton
--- NOTE | 2022-08-21 15:50 | ED.GENADULT ---
HPI - General Adult General Chief complaint: General Medical Stated complaint: RIB PAIN Time Seen by Provider: 08/21/22 15:08 Source: patient and old records reviewed History of Present Illness HPI narrative: Patient complaining of right anterior rib pain for the past 11 days after slip and fall. He has a history of coronary artery disease, diabetes, hypertension, asthma. Chronic tobacco use He states the pain is not improving despite 5 mg oxycodone tablets. It is severe, sharp, worse with movement. It radiates through to his back. No increase in shortness of breath over baseline. Secondary complaint of stating the pain is so bad that he is worried he is going to hurt himself or someone else at times. This is actually a chronic problem for this patient. He states when he feels this way he comes down okay, or takes an extra Klonopin, or causes therapist to he sees weekly. He states he does not think he will actually follow through on this as he can recognize when he feels this way, as he has been dealing with these feelings for many years. Related Data Home Medications Medication Instructions Recorded Confirmed acarbose 50 mg tablet 50 mg PO BID 06/23/20 05/09/22 aspirin 81 mg tablet,delayed 81 mg PO DAILY 06/23/20 08/09/22 release (Adult Low Dose Aspirin) atorvastatin 80 mg tablet 80 mg PO DAILY 06/23/20 08/09/22 clonazepam 1 mg tablet 1 mg PO DAILY 06/23/20 08/09/22 loratadine 10 mg tablet 10 mg PO DAILY 06/23/20 08/09/22 nicotine 21 mg/24 hr daily 1 patch transdermal DAILY 06/23/20 05/09/22 transdermal patch quetiapine 100 mg tablet 100 mg PO DAILY 11/22/20 08/09/22 bupropion HCl 150 mg 24 hr tablet, 150 mg PO DAILY 10/18/21 08/09/22 extended release albuterol sulfate 2.5 mg/3 mL 3 ml inhalation DIRECTED 04/06/22 08/09/22 (0.083 %) solution for nebulization diclofenac sodium 1 % topical gel 1 ea topical BID 04/06/22 08/09/22 dulaglutide 0.75 mg/0.5 mL 1 ea subcut QWEEK 04/06/22 08/09/22 subcutaneous pen injector (Trulicity) clobetasol 0.05 % topical ointment 1 applic topical BID 04/20/22 08/09/22 acetaminophen 650 mg 650 mg PO Q8H 05/09/22 08/09/22 tablet,extended release albuterol sulfate 90 mcg/actuation 2 puff inhalation Q6H PRN 05/09/22 08/09/22 aerosol inhaler (Ventolin HFA) cyclobenzaprine 10 mg tablet 10 mg PO TID 05/09/22 08/09/22 insulin glargine 100 unit/mL (3 50 unit subcut QPM 05/09/22 08/09/22 mL) subcutaneous pen (Lantus Solostar U-100 Insulin) multivitamin (One Daily 1 tab PO DAILY 05/15/22 08/09/22 Multivitamin tablet) naloxone 4 mg/actuation nasal spray 0 spray intranasal 05/15/22 08/09/22 ticagrelor 60 mg tablet (Brilinta) 0 mg PO DAILY PRN 05/15/22 ticagrelor 90 mg tablet (Brilinta) 60 mg PO BID 05/15/22 08/09/22 fluticasone furoate 100 1 inh inhalation DAILY 05/19/22 08/09/22 mcg-vilanterol 25 mcg/dose inhalation powder (Breo Ellipta) Previous Rx's Medication Instructions Recorded theophylline 400 mg 400 mg PO DAILY 30 days #30 tabs 02/22/22 tablet,extended release 24 hr amlodipine 2.5 mg tablet 2.5 mg PO DAILY 90 days #90 tabs 04/05/22 losartan 25 mg tablet 25 mg PO DAILY #90 tabs 04/05/22 ranolazine 1,000 mg 1,000 mg PO BID 90 days #180 tabs 04/05/22 tablet,extended release,12 hr (Ranexa) psyllium husk (aspartame) 3.4 gram 3.4 g PO DAILY #30 ea 04/22/22 oral powder packet (Metamucil Fiber Singles) docusate sodium 100 mg capsule 100 mg PO DAILY #30 caps 04/26/22 metoprolol tartrate 50 mg tablet 50 mg PO BID #60 tabs 05/05/22 prednisone 10 mg tablet 40 mg PO DAILY 5 days #20 tabs 05/19/22 ezetimibe 10 mg tablet 10 mg PO DAILY #30 tabs 05/29/22 isosorbide mononitrate 120 mg 120 mg PO QAM #30 tabs 06/29/22 tablet,extended release 24 hr nitroglycerin 0.4 mg sublingual 0.4 mg sublingual Q5M #25 ea 06/29/22 tablet pantoprazole 40 mg tablet,delayed 40 mg PO DAILY #30 tabs 06/29/22 release simethicone 180 mg capsule 180 mg PO BID PRN for abdominal 07/03/22 pain #60 caps sennosides 8.6 mg capsule (senna) 8.6 mg PO BEDTIME #30 caps 07/04/22 cyclobenzaprine 5 mg tablet 5 mg PO TID PRN muscle spasm #10 08/11/22 tabs oxycodone 5 mg tablet 5 mg PO Q6H PRN pain #10 tabs 08/11/22 cyclobenzaprine 10 mg tablet 10 mg PO TID PRN muscle spasm #20 08/21/22 tabs ibuprofen 800 mg tablet 800 mg PO Q8H PRN pain #30 tabs 08/21/22 oxycodone 10 mg tablet 10 mg PO TID PRN pain #9 tabs 08/21/22 Allergies Allergy/AdvReac Type Severity Reaction Status Date / Time Penicillins Allergy Mild RASH Verified 05/19/22 12:50 ciprofloxacin [From Cipro] Allergy Unknown RASH Verified 05/19/22 12:50 Review of Systems Constitutional: Comments: No fevers or chills or weakness Cardiovascular: Comments: chest pain as described Respiratory: Comments: no cough or dyspnea Gastrointestinal: Comments: no abdominal pain. No nausea Musculoskeletal: Comments: no extremity pain Integumentary/Breasts: Comments: no newrash or bruising Neurologic: Comments: no focal weakness Psychiatric: Comments: no depression. Occasional suicidal and homicidal ideation which is chronic for patient. [facility] Past Medical History Medical History Abnormal CT scan, gastrointestinal tract Angina of effort Arthritis COPD (chronic obstructive pulmonary disease) Coronary artery disease Diabetes mellitus, type 2 Dizziness HLD (hyperlipidemia) HTN (hypertension) Memory difficulties On anticoagulant therapy On beta russ at home Peripheral vascular disease Surgical History H/O coronary artery bypass surgery Hx of colonoscopy S/P CABG x 3 (~09/2018) S/P cardiac cath (~08/2019) S/P cardiac cath (~04/2020) S/P cardiac catheterization (~12/2020) Stented coronary artery Social History Social History Household Members: Children Housing: House Alcohol intake: current Alcohol intake frequency: holidays/special occasions only Patient Tobacco Use Status: Current everyday Tobacco user Tobacco use type: Cigarette Cigarette Packs Per Day: 1 Cigarettes Per Day: 8 Advance Directives: Yes Advance Directives on File: Yes Advance Directives Date on File: 04/24/22 service: No Current occupational status: disabled Physical Exam ED Vital Signs: Vital Signs - 24 hr 08/21/22 14:48 Temperature 98.9 F Pulse Rate 79 Respiratory Rate 20 Blood Pressure 193/89 H Pulse Oximetry 100 Oxygen Delivery Method Room Air BMI result Body Mass Index 27.7 Const Other: Awake alert. No acute distress. Ambulatory. Smiles during history and physical Neck Other: full range of motion, nontender Chest Other: tender right anterior lower ribs without crepitus or deformity. Mild tenderness right flank, lower thorax Resp Other: mildly diminished but clear bilaterally Cardio Other: regular rate and rhythm without murmurs rubs or gallops GI Other: soft, nontender, nondistended. Tenderness appears limited to lower ribcage and does not extend into the abdomen Skin Other: warm pink and dry. Chronic appearing rash low abdomen near surgical scar, remote. No skin changes over area of pain and tenderness Neuro Other: nonfocal neuro exam Psych Other: psychiatric exam as described. Course Course Course Narrative: 17:54. Workup in the emergency department is unremarkable. He is stable for discharge home. No sent home with more aggressive pain control. Higher dose of oxycodone, with the addition of muscle relaxant Flexeril, with the addition of nonsteroidal anti-inflammatory, ibuprofen Medications Administered Discontinued Medications Generic Name Dose Route Start Last Admin Trade Name Freq PRN Reason Stop Dose Admin Cyclobenzaprine HCl 10 mg 08/21/22 15:47 08/21/22 15:53 Cyclobenzaprine Hcl 10 Mg Tablet PO 08/21/22 15:48 10 mg ONCE ONE Administration Ketorolac Tromethamine 30 mg 08/21/22 15:47 08/21/22 15:53 Ketorolac Tromethamine 30 Mg/Ml Vial IM 08/21/22 15:48 30 mg ONCE ONE Administration Medical Decision Making Medical Decision Making MDM Narrative: Patient with ongoing rib pain 11 days after fall. Initial workup was negative for fracture or significant injury. It is possible he had an occult fracture, versus muscle spasm. Will treat with Toradol and Flexeril for inflammation, pain, spasm. It is understood he is on aspirin and ticagrelor, but adding the anti inflammatory is beneficial enough to offset the minimal risk. Lab Data Result Diagrams: 08/21/22 17:23 08/21/22 17:10 Labs: Lab Results 08/21/22 08/21/22 08/21/22 Range/Units 17:10 17:23 17:23 WBC 6.0 (4.8-10.8) X10*3/uL RBC 4.16 L (4.60-5.80) X10*6/uL Hgb 13.4 L (14.0-18.0) g/dl Hct 39.6 L (42.0-52.0) % MCV 95.2 (80.0-98.0) fL MCH 32.2 (27.0-33.0) pg MCHC 33.8 (31.0-36.0) g/dl RDW 12.1 (11.0-16.0) % Plt Count 160 (160-400) X10*3/uL MPV 10.7 (9.4-12.4) fL Immature Gran % (Auto) 0.2 (0.0-0.4) % Neut % (Auto) 66.0 (45-73) % Lymph % (Auto) 22.3 (20-40) % [place] % (Auto) 9.5 (2-11) % Eos % (Auto) 1.7 (0-4) % Baso % (Auto) 0.3 (0-2) % Lymph # (Auto) 1.3 (1.2-4.9) X10*3/uL [place] # (Auto) 0.6 (0.1-1.2) X10*3/uL Eos # (Auto) 0.1 (0.0-0.4) X10*3/uL Baso # (Auto) 0.0 (0.0-0.2) X10*3/uL Abs Immat Gran (auto) 0.01 (0.00-0.03) X10*3/uL Absolute Neuts (auto) 4.0 (2.0-8.3) x10*3/uL Absolute Nucleated RBC 0.000 (0.0-0.012) X10*3/uL Nucleated RBC % (auto) 0.0 (0.0-0.2) /100WBC PT 11.5 (10.0-13.1) SEC INR 1.0 (0.9-1.1) APTT 31.7 (26.0-36.4) SEC D-Dimer High Sensitivty 242 NG/ML Sodium 138 (135-145) mmol/L Potassium 4.3 (3.3-5.1) mmol/L Chloride 105 (96-108) mmol/L Carbon Dioxide 27 (22-29) mmol/L Anion Gap 10 L (12-20) BUN 22 H (9-16) mg/dL Creatinine 1.22 (0.5-1.4) mg/dL Estim Creat Clear Calc 57.7 Estimated GFR 59 Random Glucose 119 H (60-115) mg/dL Calcium 9.0 (8.4-10.2) mg/dL Total Bilirubin 0.4 (0.0-1.0) mg/dL AST 16 (5-37) U/L ALT 15 (0-40) U/L Alkaline Phosphatase 103 (39-117) U/L Troponin I High Sens (<3.5-35.0) ng/L Total Protein 5.8 L (6.5-8.0) g/dL Albumin 3.8 (3.5-5.0) g/dL Lipase 23 (8-78) U/L // Range/Units 17:23 WBC (4.8-10.8) X10*3/uL RBC (4.60-5.80) X10*6/uL Hgb (14.0-18.0) g/dl Hct (42.0-52.0) % MCV (80.0-98.0) fL MCH (27.0-33.0) pg MCHC (31.0-36.0) g/dl RDW (11.0-16.0) % Plt Count (160-400) X10*3/uL MPV (9.4-12.4) fL Immature Gran % (Auto) (0.0-0.4) % Neut % (Auto) (45-73) % Lymph % (Auto) (20-40) % [place] % (Auto) (2-11) % Eos % (Auto) (0-4) % Baso % (Auto) (0-2) % Lymph # (Auto) (1.2-4.9) X10*3/uL [place] # (Auto) (0.1-1.2) X10*3/uL Eos # (Auto) (0.0-0.4) X10*3/uL Baso # (Auto) (0.0-0.2) X10*3/uL Abs Immat Gran (auto) (0.00-0.03) X10*3/uL Absolute Neuts (auto) (2.0-8.3) x10*3/uL Absolute Nucleated RBC (0.0-0.012) X10*3/uL Nucleated RBC % (auto) (0.0-0.2) /100WBC PT (10.0-13.1) SEC INR (0.9-1.1) APTT (26.0-36.4) SEC D-Dimer High Sensitivty NG/ML Sodium (135-145) mmol/L Potassium (3.3-5.1) mmol/L Chloride (96-108) mmol/L Carbon Dioxide (22-29) mmol/L Anion Gap (12-20) BUN (9-16) mg/dL Creatinine (0.5-1.4) mg/dL Estim Creat Clear Calc Estimated GFR Random Glucose (60-115) mg/dL Calcium (8.4-10.2) mg/dL Total Bilirubin (0.0-1.0) mg/dL AST (5-37) U/L ALT (0-40) U/L Alkaline Phosphatase (39-117) U/L Troponin I High Sens < 3.5 (<3.5-35.0) ng/L Total Protein (6.5-8.0) g/dL Albumin (3.5-5.0) g/dL Lipase (8-78) U/L Discharge Plan Discharge Clinical Impression: Contusion of rib on right side Patient Disposition: Home, Self-Care Instructions: Rib Contusion (ED) Additional Instructions: make an active effort to take at least 10 deep breaths every hour. Return if worse or if you think you are at increased risk of harming herself or others stop taking diclofenac, and start taking ibuprofen Prescriptions: New oxycodone 10 mg tablet 10 mg PO TID PRN (Reason: pain) Qty: 9 0RF Rx Instructions: Partial Fill upon patient request. cyclobenzaprine 10 mg tablet 10 mg PO TID PRN (Reason: muscle spasm) Qty: 20 0RF ibuprofen 800 mg tablet 800 mg PO Q8H PRN (Reason: pain) Qty: 30 0RF No Action losartan 25 mg tablet 25 mg PO DAILY Qty: 90 1RF amlodipine 2.5 mg tablet 2.5 mg PO DAILY 90 Days Qty: 90 1RF ranolazine [Ranexa] 1,000 mg tablet extended release 12 hr 1,000 mg PO BID 90 Days Qty: 180 1RF metoprolol tartrate 50 mg tablet 50 mg PO BID Qty: 60 5RF ezetimibe 10 mg tablet 10 mg PO DAILY Qty: 30 5RF nitroglycerin 0.4 mg tablet, sublingual 0.4 mg sublingual Q5M Qty: 25 2RF isosorbide mononitrate 120 mg tablet extended release 24 hr 120 mg PO QAM Qty: 30 5RF pantoprazole 40 mg tablet,delayed release (DR/EC) 40 mg PO DAILY Qty: 30 3RF simethicone 180 mg capsule 180 mg PO BID PRN (Reason: for abdominal pain) Qty: 60 0RF senna 8.6 mg capsule 8.6 mg PO BEDTIME Qty: 30 0RF diclofenac sodium 1 % gel 1 ea topical BID Trulicity 0.75 mg/0.5 mL pen injector 1 ea subcut QWEEK albuterol sulfate 2.5 mg /3 mL (0.083 %) solution for nebulization 3 ml inhalation DIRECTED clobetasol 0.05 % ointment 1 applic topical BID Metamucil Fiber Singles 3.4 gram Powder In Packet 3.4 g PO DAILY Qty: 30 0RF oxycodone 5 mg tablet 5 mg PO Q6H PRN (Reason: pain) Qty: 10 0RF Rx Instructions: Partial Fill upon patient request. cyclobenzaprine 5 mg tablet 5 mg PO TID PRN (Reason: muscle spasm) Qty: 10 0RF quetiapine 100 mg tablet 100 mg PO DAILY bupropion HCl 150 mg tablet extended release 24 hr 150 mg PO DAILY acarbose 50 mg tablet 50 mg PO BID loratadine 10 mg tablet 10 mg PO DAILY clonazepam 1 mg tablet 1 mg PO DAILY aspirin [Adult Low Dose Aspirin] 81 mg tablet,delayed release (DR/EC) 81 mg PO DAILY nicotine 21 mg/24 hr patch 24 hour 1 patch transdermal DAILY atorvastatin 80 mg tablet 80 mg PO DAILY fluticasone furoate-vilanterol [Breo Ellipta] 100-25 mcg/dose blister with device 1 inh inhalation DAILY prednisone 10 mg tablet 40 mg PO DAILY 5 Days Qty: 20 0RF docusate sodium 100 mg capsule 100 mg PO DAILY Qty: 30 3RF theophylline 400 mg tablet extended release 24 hr 400 mg PO DAILY 30 Days Qty: 30 6RF insulin glargine [Lantus Solostar U-100 Insulin] 100 unit/mL (3 mL) insulin pen 50 unit subcut QPM acetaminophen 650 mg tablet extended release 650 mg PO Q8H cyclobenzaprine 10 mg tablet 10 mg PO TID albuterol sulfate [Ventolin HFA] 90 mcg/actuation HFA aerosol inhaler 2 puff inhalation Q6H PRN Brilinta 60 mg tablet 0 mg PO DAILY PRN multivitamin [One Daily Multivitamin] Tablet 1 tab PO DAILY naloxone 4 mg/actuation spray,non-aerosol 0 spray intranasal Brilinta 90 mg tablet 60 mg PO BID
[2022-08-21 17:27] LABS: MANUAL DIFF FLAG NO
[2022-08-21 17:29] LABS: Basophils Percent Auto 0.3 % (0-2); Eosinophils Absolute Auto 0.1 X10*3/uL (0.0-0.4); Eosinophils Percent Auto 1.7 % (0-4); Hematocrit 39.6 % (42.0-52.0); Hemoglobin 13.4 g/dl (14.0-18.0); Imm Gran Abs Auto 0.01 X10*3/uL (0.00-0.03); Imm Gran Pct Auto 0.2 % (0.0-0.4); Lymphocytes Absolute Auto 1.3 X10*3/uL (1.2-4.9); Lymphocytes Percent Auto 22.3 % (20-40); Mean Corpuscular HGB Conc 33.8 g/dl (31.0-36.0); Mean Corpuscular Hemoglobin 32.2 pg (27.0-33.0); Mean Corpuscular Volume 95.2 fL (80.0-98.0); Mean Platelet Volume 10.7 fL (9.4-12.4); Monocytes Absolute Auto 0.6 X10*3/uL (0.1-1.2); Monocytes Percent Auto 9.5 % (2-11); Platelet Count 160 X10*3/uL (160-400); Red Blood Count 4.16 X10*6/uL (4.60-5.80); Red Cell Distribution Width 12.1 % (11.0-16.0)
[2022-08-21 17:35] LABS: Prothrombin Time 11.5 SEC (10.0-13.1)
[2022-08-21 17:37] LABS: D Dimer High Sensitivity 242 NG/ML; Partial Thromboplastin Time 31.7 SEC (26.0-36.4)
[2022-08-21 17:48] LABS: Alanine Aminotransferase 15 U/L (0-40); Albumin Level 3.8 g/dL (3.5-5.0); Alkaline Phosphatase 103 U/L (39-117); Anion Gap 10 (12-20); Aspartate Amino Transferase 16 U/L (5-37); Bilirubin Total 0.4 mg/dL (0.0-1.0); Blood Urea Nitrogen 22 mg/dL (9-16); Carbon Dioxide 27 mmol/L (22-29); Chloride 105 mmol/L (96-108); Creatinine Clr Calc Pharmacy 57.7; Estimated Glomerular Filt Rate 59; Glucose Random 119 mg/dL (60-115); Lipase 23 U/L (8-78); Potassium 4.3 mmol/L (3.3-5.1); Sodium 138 mmol/L (135-145); Total Protein 5.8 g/dL (6.5-8.0)
[2022-08-21 17:57] LABS: Troponin-I High Sensitivity < 3.5 ng/L (<3.5-35.0)
== END 2022-08-21 18:18 | disposition home or self-care (01) ==
PROVIDERS: Physician Assistant; Emergency Provider Emergency Medicine; PCP Internal Medicine
DX: S20.211A Contusion of right front wall of thorax, initial encounter (principal); W01.0XXA Fall on same level from slipping, tripping and stumbling without subsequent striking against object, initial encounter; E11.9 Type 2 diabetes mellitus without complications; I10 Essential (primary) hypertension; J45.909 Unspecified asthma, uncomplicated; Z79.82 Long term (current) use of aspirin; Z79.02 Long term (current) use of antithrombotics/antiplatelets; Z79.899 Other long term (current) drug therapy; Z79.4 Long term (current) use of insulin; Z79.01 Long term (current) use of anticoagulants; F17.210 Nicotine dependence, cigarettes, uncomplicated; Y93.9 Activity, unspecified; Y92.9 Unspecified place or not applicable; Y99.9 Unspecified external cause status
CPT/HCPCS: 36415; 80053; 83690; 84484; 85025; 85379; 85610; 85730; 93005; 96372; 99284; J1885

== ENCOUNTER → 2022-12-07 12:29 | Outpatient (BNVA) | payer OTHER, SELFPAY | PROVIDERS: PCP Internal Medicine; Referring Provider Internal Medicine; Visit Provider Internal Medicine Cardiovascular Disease | DX: I20.8 Other forms of angina pectoris (principal); I15.2 Hypertension secondary to endocrine disorders; E11.9 Type 2 diabetes mellitus without complications; F17.210 Nicotine dependence, cigarettes, uncomplicated; Z79.4 Long term (current) use of insulin | CPT/HCPCS: 99212 ==

== ENCOUNTER 2022-12-28 06:47 | Outpatient (REF) | payer OTHER, SELFPAY ==
--- NOTE | ~2022-12-28 | CT_ITS ---
EXAMINATION: CT CHEST WITHOUT CONTRAST CLINICAL INFORMATION: Other nonspecific abnormal finding of lung field. COMPARISON: Previous CT scans September 2017. Most recent chest CTA from December 2021 not available and previous chest x-ray most recent July 2022 TECHNIQUE: Multidetector volumetric CT imaging of the chest was done. Axial MIP volume rendering provided. Sagittal and coronal reformatted images were obtained. This CT examination was performed using dose optimization techniques as appropriate, variously including the following: *Automated exposure control *Adjustment of mA and/or kV according to patient size (this includes techniques or standardized protocols for targeted exams where dose is matched to indication/reason for exam; i.e. extremities or head) *Use of iterative reconstruction technique DLP: 175 mGy-cm FINDINGS: RFID TECHNICIAN: LUNGS: Mild emphysema. Scarring or subsegmental atelectasis in the posterior right upper lobe axial image 147 series 5. 2 mm right lower lobe nodule axial image 435 series 5. 7 mm peripheral or subpleural right lower lobe nodule axial 441 series 5. 3 mm peripheral or subpleural left lower lobe nodule axial 5. 3 mm left lower lobe peripheral or subpleural nodule axial image 5 2 series 5. These are all stable from 2018 exam. No endobronchial or endotracheal lesion. MEDIASTINUM: Post-CABG changes. Normal heart size. No pericardial effusion. Normal caliber thoracic aorta. No enlarged hilar or mediastinal lymph nodes. CORONARY ARTERY CALCIFICATION: Moderate PLEURA: There is no pleural effusion. No pleural mass or thickening. AXILLA: No lymphadenopathy. UPPER ABDOMEN: Unremarkable. OSSEOUS STRUCTURES: Median sternotomy. Degenerative changes of the spine. CT/CT chest wo IV con IMPRESSION: Mild emphysema. Small pulmonary nodules, largest a 7 mm peripheral or subpleural right lower lobe nodule. These are stable from chest CT from 2018. Fleischner guidelines were followed.
== END 2022-12-28 06:48 | disposition home or self-care (01) ==
LOC: HO.CT 06:47
PROVIDERS: PCP Internal Medicine; Visit Provider Internal Medicine Pulmonary Disease
DX: R91.8 Other nonspecific abnormal finding of lung field (principal)
CPT/HCPCS: 71250

== ENCOUNTER → 2023-01-01 10:05 | Outpatient (BNVA) | payer OTHER, SELFPAY | PROVIDERS: PCP Internal Medicine; Visit Provider Internal Medicine Gastroenterology | DX: R10.31 Right lower quadrant pain (principal) | CPT/HCPCS: 99212 ==

== ENCOUNTER → 2023-01-02 14:26 | Outpatient (BNVA) | payer OTHER, SELFPAY | PROVIDERS: PCP Internal Medicine; Visit Provider Internal Medicine Pulmonary Disease | DX: J44.9 Chronic obstructive pulmonary disease, unspecified (principal); R91.8 Other nonspecific abnormal finding of lung field; G47.33 Obstructive sleep apnea (adult) (pediatric); Z99.89 Dependence on other enabling machines and devices | CPT/HCPCS: 99212 ==

== ENCOUNTER 2023-01-10 08:36 | Outpatient (REF) | payer OTHER, SELFPAY ==
--- NOTE | ~2023-01-10 | XR_ITS ---
EXAMINATION: XR KNEE, RIGHT XR KNEE, LEFT XR KNEE STANDING, BILATERAL CLINICAL INFORMATION: Pain. COMPARISON: 10/14/2021 and 02/16/2020 TECHNIQUE: AP standing view of both knees as well as sunrise and lateral views of both knees. FINDINGS: RIGHT KNEE: No acute fracture or dislocation is identified. Right knee joint spaces are maintained. There is a minimal amount of suprapatellar fluid present. There are two densities seen about the anterior joint space one of which was present on prior study of 10/14/2021 and may represent loose bodies. There is question of a donor site about the lateral aspect of the intercondylar notch. There are some overlying superimposed densities related to sheets. Question calcific densities ventral and dorsal to the distal femur are present and may be artifact. Some of the posterior calcifications may be vascular in nature or related to possible calcifications within a popliteal fossa cyst. LEFT KNEE: No acute fracture or dislocation present. Small amount of suprapatellar fluid. Minimal spurring patellofemoral joint. Joint spaces are maintained. Vascular calcifications are present. Patient is status post left lower extremity bypass surgery. There is some soft tissue prominence seen overlying the patella. XR/XR knee standing BI IMPRESSION: No evidence of acute fracture or dislocation of either the right or left knee. Question loose bodies within the anterior right knee joint space as described. Minimal bilateral suprapatellar effusions.
--- NOTE | ~2023-01-10 | XR_ITS ---
EXAMINATION: XR KNEE, RIGHT XR KNEE, LEFT XR KNEE STANDING, BILATERAL CLINICAL INFORMATION: Pain. COMPARISON: 10/14/2021 and 02/16/2020 TECHNIQUE: AP standing view of both knees as well as sunrise and lateral views of both knees. FINDINGS: RIGHT KNEE: No acute fracture or dislocation is identified. Right knee joint spaces are maintained. There is a minimal amount of suprapatellar fluid present. There are two densities seen about the anterior joint space one of which was present on prior study of 10/14/2021 and may represent loose bodies. There is question of a donor site about the lateral aspect of the intercondylar notch. There are some overlying superimposed densities related to sheets. Question calcific densities ventral and dorsal to the distal femur are present and may be artifact. Some of the posterior calcifications may be vascular in nature or related to possible calcifications within a popliteal fossa cyst. LEFT KNEE: No acute fracture or dislocation present. Small amount of suprapatellar fluid. Minimal spurring patellofemoral joint. Joint spaces are maintained. Vascular calcifications are present. Patient is status post left lower extremity bypass surgery. There is some soft tissue prominence seen overlying the patella. XR/XR knee RT 2V IMPRESSION: No evidence of acute fracture or dislocation of either the right or left knee. Question loose bodies within the anterior right knee joint space as described. Minimal bilateral suprapatellar effusions.
--- NOTE | ~2023-01-10 | XR_ITS ---
EXAMINATION: XR KNEE, RIGHT XR KNEE, LEFT XR KNEE STANDING, BILATERAL CLINICAL INFORMATION: Pain. COMPARISON: 10/14/2021 and 02/16/2020 TECHNIQUE: AP standing view of both knees as well as sunrise and lateral views of both knees. FINDINGS: RIGHT KNEE: No acute fracture or dislocation is identified. Right knee joint spaces are maintained. There is a minimal amount of suprapatellar fluid present. There are two densities seen about the anterior joint space one of which was present on prior study of 10/14/2021 and may represent loose bodies. There is question of a donor site about the lateral aspect of the intercondylar notch. There are some overlying superimposed densities related to sheets. Question calcific densities ventral and dorsal to the distal femur are present and may be artifact. Some of the posterior calcifications may be vascular in nature or related to possible calcifications within a popliteal fossa cyst. LEFT KNEE: No acute fracture or dislocation present. Small amount of suprapatellar fluid. Minimal spurring patellofemoral joint. Joint spaces are maintained. Vascular calcifications are present. Patient is status post left lower extremity bypass surgery. There is some soft tissue prominence seen overlying the patella. XR/XR knee LT 2V IMPRESSION: No evidence of acute fracture or dislocation of either the right or left knee. Question loose bodies within the anterior right knee joint space as described. Minimal bilateral suprapatellar effusions.
== END 2023-01-10 08:37 | disposition home or self-care (01) ==
LOC: HO.HOSX 08:36
PROVIDERS: Visit Provider Physician Assistant
DX: M17.0 Bilateral primary osteoarthritis of knee (principal)
CPT/HCPCS: 73560; 73565; 99202

== ENCOUNTER → 2023-02-08 10:00 | Outpatient (BNVA) | payer OTHER, SELFPAY | PROVIDERS: PCP Internal Medicine; Visit Provider Internal Medicine Pulmonary Disease | DX: J44.9 Chronic obstructive pulmonary disease, unspecified (principal); R91.8 Other nonspecific abnormal finding of lung field; G47.33 Obstructive sleep apnea (adult) (pediatric); Z99.89 Dependence on other enabling machines and devices | CPT/HCPCS: 99212 ==

== ENCOUNTER 2023-03-05 16:16 | Outpatient (REF) | payer OTHER, SELFPAY ==
[2023-03-05 17:59] LABS: MANUAL DIFF FLAG NO
[2023-03-05 18:27] LABS: Basophils Percent Auto 0.5 % (0-2); Eosinophils Absolute Auto 0.1 X10*3/uL (0.0-0.4); Eosinophils Percent Auto 2.2 % (0-4); Hematocrit 46.6 % (42.0-52.0); Hemoglobin 15.6 g/dl (14.0-18.0); Imm Gran Abs Auto 0.02 X10*3/uL (0.00-0.03); Imm Gran Pct Auto 0.3 % (0.0-0.4); Lymphocytes Absolute Auto 1.5 X10*3/uL (1.2-4.9); Lymphocytes Percent Auto 23.2 % (20-40); Mean Corpuscular HGB Conc 33.5 g/dl (31.0-36.0); Mean Corpuscular Hemoglobin 31.9 pg (27.0-33.0); Mean Corpuscular Volume 95.3 fL (80.0-98.0); Mean Platelet Volume 10.9 fL (9.4-12.4); Monocytes Absolute Auto 0.5 X10*3/uL (0.1-1.2); Monocytes Percent Auto 7.9 % (2-11); Neutrophils Absolute Auto 4.3 x10*3/uL (2.0-8.3); Neutrophils Percent Auto 65.9 % (45-73); Platelet Count 212 X10*3/uL (160-400); Red Blood Count 4.89 X10*6/uL (4.60-5.80); Red Cell Distribution Width 12.9 % (11.0-16.0); White Blood Count 6.5 X10*3/uL (4.8-10.8)
[2023-03-08 03:09] LABS: TS Negative Control Passed; TS Panel A 34; TS Panel B 9; TS Positive Control Passed; TSpotTB Positive (Negative)
== END 2023-03-05 16:17 | disposition home or self-care (01) ==
LOC: HO.HHCL 16:16
PROVIDERS: Visit Provider Family Medicine
DX: Z11.1 Encounter for screening for respiratory tuberculosis (principal); L40.9 Psoriasis, unspecified
CPT/HCPCS: 36415; 85025; 86481

== ENCOUNTER 2023-03-12 11:40 | Outpatient (REF) | payer OTHER, SELFPAY ==
[2023-03-13 05:35] LABS: HBS Num1 0.13 mIU/mL (0-7.99); HBc Num1 0.16 S/CO (0.00-0.79); HBsAGNum1 0.41 S/CO (0.00-0.99); HIV AB/AG Nonreactive (Nonreactive); Hepatitis B Core Antibody Nonreactive (Nonreactive); Hepatitis B Surface Antigen Negative (Negative); ~Hepatitis B Surface Antibody NONREACTIVE (Nonreactive)
[2023-03-13 05:37] LABS: ~HepC Num1 0.14 S/CO (0.00-0.79); ~Hepatitis C Antibody Nonreactive (Nonreactive)
== END 2023-03-12 11:41 | disposition home or self-care (01) ==
LOC: HO.HHCL 11:40
PROVIDERS: Visit Provider Family Medicine
DX: Z11.4 Encounter for screening for human immunodeficiency virus [HIV] (principal); L40.9 Psoriasis, unspecified
CPT/HCPCS: 36415; 86704; 86706; 86803; 87340; 87389

== ENCOUNTER 2023-03-19 13:33 | Outpatient (REF) | payer OTHER, SELFPAY ==
[2023-03-19 16:42] LABS: Alanine Aminotransferase 15 U/L (0-40); Albumin Level 4.3 g/dL (3.5-5.0); Alkaline Phosphatase 103 U/L (39-117); Aspartate Amino Transferase 19 U/L (5-37); Bilirubin Direct 0.2 mg/dL (0.0-0.5); Bilirubin Total 0.5 mg/dL (0.0-1.0); Total Protein 7.1 g/dL (6.5-8.0)
== END 2023-03-19 13:34 | disposition home or self-care (01) ==
LOC: HO.HHCL 13:33
PROVIDERS: Visit Provider Family Medicine
DX: L40.9 Psoriasis, unspecified (principal)
CPT/HCPCS: 36415; 80076

== ENCOUNTER → 2023-03-22 08:43 | Outpatient (REF) | payer OTHER, SELFPAY | LOC: HO.SL 08:43 | PROVIDERS: PCP Internal Medicine; Visit Provider Internal Medicine Pulmonary Disease | DX: G47.33 Obstructive sleep apnea (adult) (pediatric) (principal); Z99.89 Dependence on other enabling machines and devices | CPT/HCPCS: 95806 ==

== ENCOUNTER → 2023-03-22 09:04 | Outpatient (BNV) | payer OTHER, SELFPAY | PROVIDERS: PCP Internal Medicine; Visit Provider Internal Medicine | DX: G47.33 Obstructive sleep apnea (adult) (pediatric) (principal) | CPT/HCPCS: 95806 ==

== ENCOUNTER 2023-05-02 09:55 | Outpatient (AMB) | payer OTHER, SELFPAY ==
[2023-05-02 10:02] VITALS: BP 128/67; PULSE 83; O2SAT 97; BMI 28.1
--- NOTE | 2023-05-02 10:02 | MHC.OFFVIS ---
Intake Vital Signs 05/02/23 10:02 Height 5 ft 6 in Weight 174 lb 2.643 oz BMI 28.1 BP 128/67 Blood Pressure Location Lt brachial Position Sitting Pulse 83 Pulse Source Doppler Pulse Oximetry (%) 97 Oxygen Delivery Method Room Air Intake Visit Reasons: copd Allergies Penicillins Allergy (Mild, Verified 05/02/23 10:04) RASH ciprofloxacin [From Cipro] Allergy (Unknown, Verified 05/02/23 10:04) RASH HPI copd HPI Details 68-year-old gentleman, active 50+ pack-year smoker, followed for underlying moderate COPD , MARU, and pulmonary nodules.? His CT chest showed stable pulmonary nodules.? Patient continues on Anoro with good control of his underlying symptoms.?He completed his sleep study that shows underlying mild obstructive sleep apnea. He is interested in restarting his CPAP therapy. [facility] [place] Medical History Abnormal CT scan, gastrointestinal tract Angina of effort Arthritis COPD (chronic obstructive pulmonary disease) Coronary artery disease Diabetes mellitus, type 2 Dizziness HLD (hyperlipidemia) HTN (hypertension) Memory difficulties On anticoagulant therapy On beta russ at home Peripheral vascular disease Surgical History H/O coronary artery bypass surgery Hx of colonoscopy S/P CABG x 3 (~09/2018) S/P cardiac cath (~08/2019) S/P cardiac cath (~04/2020) S/P cardiac catheterization (~12/2020) Stented coronary artery Social History Household Members: Children Housing: House Alcohol intake: current Alcohol intake frequency: holidays/special occasions only Patient Tobacco Use Status: Current everyday Tobacco user Tobacco use type: Cigarette Cigarette Packs Per Day: 1 Cigarettes Per Day: 8 Advance Directives Date on File: 04/24/22 service: No Current occupational status: disabled Review of Systems Const Denies daytime sleepiness, Denies excessive sweating, Denies fatigue, Denies fever(s), Denies lethargy, Denies malaise, Denies night sweats, Denies snoring and Denies weight loss Eyes Denies blurry vision and Denies itchy eyes ENT Denies nasal congestion, Denies post nasal drip, Denies sinus pain, Denies sinus pressure and Denies other ( Thrush) Card Denies chest pain, Denies pedal edema, Denies dyspnea, Denies orthopnea and Denies paroxysmal nocturnal dyspnea Resp Denies cough, Denies hemoptysis, Denies excessive phlegm production, Denies dyspnea, Denies snoring and Denies wheezing GI Denies abdominal pain and Denies heartburn Musc Denies myalgias, Denies arthralgias and Denies joint swelling Skin/Breast Denies rash Neuro Denies memory loss and Denies seizure-like activity Psych Denies abnormal sleep pattern, Denies anxiety and Denies memory loss Endo Denies excessive sweating, Denies fatigue and Denies heat intolerance Prasanth/Lymph Denies easy bruising Aller/Immun Denies itchy eyes, Denies seasonal rhinorrhea and Denies wheezing Physical Exam Vital Signs: Last Vital Signs Pulse 83 05/02/23 10:02 BP 128/67 05/02/23 10:02 Pulse Ox 97 05/02/23 10:02 Oxygen Delivery Method Room Air 05/02/23 10:02 BMI result Body Mass Index 28.1 Const General: no acute distress and alert Nutritional Appearance: not obese Orientation/consciousness: Other orientation findings ( oriented) HEENT Head: Yes atraumatic Eyes General: appearance normal, both eyes and all related structures Sclerae: sclerae normal EOM: EOMs intact bilaterally Neck Neck: Yes supple Lymphatic: no lymphadenopathy noted Resp Effort & Inspection: normal respiratory effort and no use of accessory muscles Auscultation: clear to auscultation bilaterally Cardio Rate: regular rate Rhythm: regular rhythm Heart sounds: no gallops, no murmurs and no rubs Skin General skin exam: other ( warm) Extrem General: No clubbing, No cyanosis and No edema Assessment & Plan Assessment & Plan (1) COPD (chronic obstructive pulmonary disease): Code(s): J44.9 - Chronic obstructive pulmonary disease, unspecified Plan: Reasonably well controlled on current regimen of Anoro and albuterol MDI. Continue current regimen. (2) MARU on CPAP: Code(s): G47.33 - Obstructive sleep apnea (adult) (pediatric); Z99.89 - Dependence on other enabling machines and devices Plan: Results of sleep study reviewed. Underlying mild obstructive sleep apnea. New CPAP order placed. Coding Level of Care Code Est Pt Level 4 (10407) Diagnoses COPD (chronic obstructive pulmonary disease) J44.9 MARU on CPAP G47.33; Z99.89
== END 2023-05-02 10:32 | disposition home or self-care (01) ==
PROVIDERS: PCP Internal Medicine; Visit Provider Internal Medicine Pulmonary Disease
DX: J44.9 Chronic obstructive pulmonary disease, unspecified (principal); G47.33 Obstructive sleep apnea (adult) (pediatric); Z99.89 Dependence on other enabling machines and devices
CPT/HCPCS: 99214

== ENCOUNTER → 2023-05-02 09:55 | Outpatient (BNVA) | payer OTHER, SELFPAY | PROVIDERS: PCP Internal Medicine; Visit Provider Internal Medicine Pulmonary Disease | DX: J44.9 Chronic obstructive pulmonary disease, unspecified (principal); G47.33 Obstructive sleep apnea (adult) (pediatric); R91.8 Other nonspecific abnormal finding of lung field; F17.210 Nicotine dependence, cigarettes, uncomplicated; Z99.89 Dependence on other enabling machines and devices | CPT/HCPCS: 99212 ==

== ENCOUNTER 2023-05-07 13:21 | Outpatient (REF) | payer OTHER, SELFPAY ==
[2023-05-07 16:20] LABS: Alanine Aminotransferase 22 U/L (0-40); Alkaline Phosphatase 104 U/L (39-117); Aspartate Amino Transferase 25 U/L (5-37); Bilirubin Direct 0.2 mg/dL (0.0-0.5); Bilirubin Total 0.5 mg/dL (0.0-1.0); Total Protein 6.6 g/dL (6.5-8.0)
== END 2023-05-07 13:22 | disposition home or self-care (01) ==
LOC: HO.HHCL 13:21
PROVIDERS: Visit Provider Family Medicine
DX: L40.9 Psoriasis, unspecified (principal)
CPT/HCPCS: 36415; 80076

== ENCOUNTER 2023-05-14 09:52 | Outpatient (AMB) | payer OTHER, SELFPAY ==
--- NOTE | 2023-05-14 10:04 | MHC.OFFVIS ---
Intake Vital Signs 05/14/23 10:06 Height 5 ft 6 in Weight 174 lb 2.643 oz BMI 28.1 BP 121/77 Blood Pressure Location Lt brachial Position Sitting Pulse 92 Intake Visit Reasons: 4 mnth follow up Intake Note: Elio presents in the office as a 4 month follow up. CC: Patient c/o nausea and acid reflux. Denies other GI symptoms today. 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 Accompanied by: Self / Same As Patient Allergies Penicillins Allergy (Mild, Verified 05/14/23 10:10) RASH ciprofloxacin [From Cipro] Allergy (Unknown, Verified 05/14/23 10:10) RASH HPI 4 mnth follow up HPI Details 68 yr old m here for f/u RECAP: He is on brilinta and aspirin for CAd and stent to RCA he had colonoscopy with ulceration around ileocecal valve and transverse colon--bx with focal colitis and ulcer s/p colonoscopy had splenoic hematoma--managed conservstively he had been having RLQ pain, on and off and given trial of apriso- INTERIM: he had not been consistent on apriso, taking sporadically has RLQ pain, but not as bad no blood in stool no nausea or vomiting appetite is fair smoking 7-10 cigs/day otherwise he is happy and good spirits, jovial mood (note TB spot was pos 03/18--) EXAM: GENERAL: The patient is well developed and nontoxic. VITAL SIGNS:see workflow HEENT: Nonicteric sclerae, PERRLA, EOMI. Oropharynx clear. Moist mucous membranes. Conjunctivae appear well perfused. No thyroid mass. CHEST: Chest wall is nontender. HEART: Regular rate and rhythm without murmurs. LUNGS: mild wheeze ABDOMEN: Soft, positive bowel sounds, mildly tender RLQ, no organomegaly.no flank tenderness SKIN: treated psoriais on the abdo wall NEUROLOGIC: Cranial nerves II-XII intact without motor/sensory deficit. a/P: 1/ abdominal pain with focal colitis and ulceration on colonoscopy, need to r/o crohns 2/ post procedure splenic hematoma, brilinta and aspirin had not been stopped due to stent-- resolved 3/ smoker, pos TB (said was treated INH in the past) PLAN: 1/ Ct enterogram as originally planned--re ordered again 2/ resent apriso, advised on compliance [facility] Medical History Abnormal CT scan, gastrointestinal tract Memory difficulties On anticoagulant therapy On beta russ at home Angina of effort HLD (hyperlipidemia) HTN (hypertension) COPD (chronic obstructive pulmonary disease) Arthritis Diabetes mellitus, type 2 Coronary artery disease Dizziness Peripheral vascular disease Surgical History Hx of colonoscopy S/P cardiac catheterization (~12/2020) S/P cardiac cath (~04/2020) Stented coronary artery S/P cardiac cath (~08/2019) S/P CABG x 3 (~09/2018) H/O coronary artery bypass surgery Social History Household Members: Children Housing: House Alcohol intake: current Alcohol intake frequency: holidays/special occasions only Patient Tobacco Use Status: Current everyday Tobacco user Tobacco use type: Cigarette Cigarette Packs Per Day: 1 Cigarettes Per Day: 8 Advance Directives Date on File: 04/24/22 service: No Current occupational status: disabled Physical Exam Vital Signs: Last Vital Signs Pulse 92 05/14/23 10:06 BP 121/77 05/14/23 10:06 BMI result Body Mass Index 28.1 Assessment & Plan Assessment & Plan Orders: Orders CT enterography Today R10.33 - Periumbilical pain Medications: Refilled mesalamine ER 1.5 grams (4 x 0.375 gram) PO QAM 120 caps 3RF Coding Level of Care Code Est Pt Level 3 (46971)
[2023-05-14 10:06] VITALS: BP 121/77; PULSE 92; BMI 28.1
== END 2023-05-14 11:02 | disposition home or self-care (01) ==
PROVIDERS: Visit Provider Internal Medicine Gastroenterology
DX: R10.33 Periumbilical pain (principal)
CPT/HCPCS: 99213

== ENCOUNTER → 2023-05-14 09:52 | Outpatient (BNVA) | payer OTHER, SELFPAY | PROVIDERS: Visit Provider Internal Medicine Gastroenterology | DX: R10.9 Unspecified abdominal pain (principal); K52.9 Noninfective gastroenteritis and colitis, unspecified | CPT/HCPCS: 99212 ==

== ENCOUNTER 2023-05-29 20:37 | Outpatient (REF) | payer OTHER, SELFPAY ==
[2023-05-29 21:57] LABS: Influenza A PCR NEGATIVE (Negative); Influenza B PCR NEGATIVE (Negative); Resp Syncy Virus RNA Qual PCR NEGATIVE (Negative); SARS COV2 PCR INHOUSE NEGATIVE (Negative)
== END 2023-05-29 20:38 | disposition home or self-care (01) ==
LOC: HO.HHCLNP 20:37
PROVIDERS: Visit Provider Internal Medicine
DX: J06.9 Acute upper respiratory infection, unspecified (principal)
CPT/HCPCS: 0241U

== ENCOUNTER 2023-06-12 12:35 | Outpatient (AMB) | payer OTHER, SELFPAY ==
[2023-06-12 12:44] VITALS: BP 122/74; PULSE 85; BMI 28.1
--- NOTE | 2023-06-12 12:44 | A.OFFVIS_ITS ---
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 Allergies Penicillins Allergy (Mild, Verified 06/12/23 12:47) RASH ciprofloxacin [From Cipro] Allergy (Unknown, Verified 06/12/23 12:47) RASH Medication List - Last Reconciled 06/12/23 by Miroslava Nam, [facility] acarbose 50 mg PO BID acetaminophen ER 650 mg PO Q8H albuterol sulfate 90 mcg/actuation (Ventolin HFA) 2 puffs inhalation Q6H PRN amlodipine 2.5 mg PO DAILY 90 days Anoro Ellipta 62.5-25 mcg/actuation (umeclidinium-vilanterol) 1 inh inhalation DAILY 30 days NS aspirin (Adult Low Dose Aspirin) 81 mg PO DAILY atorvastatin 80 mg PO DAILY blood sugar diagnostic (FreeStyle Lite Strips) As directed clobetasol 0.05% 1 applic topical BID clonazepam 1 mg PO DAILY cyclobenzaprine 5 mg PO TID PRN cyclobenzaprine 10 mg PO TID PRN diclofenac sodium 1% 1 ea topical BID dulaglutide (Trulicity) 1 ea subcut QWEEK ezetimibe 10 mg PO DAILY 90 days halobetasol propionate 0.05% appl topical ibuprofen 800 mg PO Q8H PRN insulin glargine (Lantus Solostar U-100 Insulin) 50 units subcut QPM isosorbide mononitrate ER 120 mg PO QAM lancets (FreeStyle Lancets) As directed loratadine 10 mg PO DAILY losartan 25 mg PO DAILY mesalamine ER 1.5 grams (4 x 0.375 gram) PO QAM metoprolol tartrate 50 mg PO BID multivitamin (One Daily Multivitamin tablet) 1 tab PO DAILY naloxone 4 mg/actuation 0 sprays intranasal nebulizer and compressor As directed nitroglycerin 0.4 mg sublingual Q5M pantoprazole 40 mg PO DAILY psyllium husk (aspartame) 3.4 gram (Metamucil Fiber Singles) 3.4 grams PO DAILY quetiapine 0 mg PO ranolazine ER 1,000 mg PO BID 90 days sennosides (senna) 8.6 mg PO BEDTIME simethicone 180 mg PO BID PRN theophylline ER 400 mg PO DAILY ticagrelor (Brilinta) 60 mg PO BID HPI 6 mth f/up HPI Details Elio is a 68-year-old male with past medical history of hypertension, hyperlipidemia, diabetes, smoking, coronary artery disease status post 3 vessel coronary artery bypass grafting 09/2017 with recurrent chest discomfort, occluded SVG to RCA then with RCA stenting early 2019. Fall 2019 he reported shortness of breath and recurrent chest discomfort and had cardiac catheterization 04/2020 with angioplasty of severe in stent restenosis of RCA.? He did feel better for 2 months then started again with chest discomfort.? Ranexa has been added and nuclear stress test was abnormal. He underwent repeat cardiac cath 12/28/20 showing ISR of RCA mid and distal stents and Nathaniel placed.? Since that time he has had stable angina at times walking up hills. Today he reports that he does have shortness of breath with walking which is not new. He walks frequently and long distances around the city. At times when he is in his home he has to get out size so that he can breathe properly. He feels like he is not able to get air in. Once he is outside he feels better. He has not been having as much discomfort in his chest with walking. When it does occur if he stops and rests for a few minutes it resolves. He has not had chest discomfort with rest. No presyncope, syncope, falls. No PND, orthopnea or edema. He says he is taking his meds as directed. He has multiple medications and would like some stopped if able. He also continues to smoke but he uses it for anxiety reduction. He is very talkative during this visit which is typical for him. He is requesting nicotine patches to help him cut down his amount of smoking. [facility] [place] Medical History Abnormal CT scan, gastrointestinal tract Memory difficulties On anticoagulant therapy On beta russ at home Angina of effort HLD (hyperlipidemia) HTN (hypertension) COPD (chronic obstructive pulmonary disease) Arthritis Diabetes mellitus, type 2 Coronary artery disease Dizziness Peripheral vascular disease Surgical History Hx of colonoscopy S/P cardiac catheterization (~12/2020) S/P cardiac cath (~04/2020) Stented coronary artery S/P cardiac cath (~08/2019) S/P CABG x 3 (~09/2018) H/O coronary artery bypass surgery Social History Household Members: Children Housing: House Alcohol intake: current Alcohol intake frequency: holidays/special occasions only Patient Tobacco Use Status: Current everyday Tobacco user Tobacco use type: Cigarette Cigarette Packs Per Day: 1 Cigarettes Per Day: 8 Advance Directives Date on File: 04/24/22 service: No Current occupational status: disabled Review of Systems Const All systems reviewed & are unremarkable except as noted in HPI and below ENT Denies dizziness Card Denies chest pain, Denies chest pain at rest, Denies chest pain with activity, Denies rapid heart rate, Denies pedal edema, Denies edema, Denies leg edema, Denies lightheadedness, Denies palpitations, Denies dyspnea, Reports dyspnea on exertion and Denies orthopnea Resp Denies cough, Denies dyspnea and Reports dyspnea on exertion GI Denies hematochezia and Denies change in stool character Musc Denies abnormal gait, Denies limited range of motion, Denies muscle cramps, Denies muscle weakness, Denies numbness, Denies radiating pain into limb, Denies stiffness and Denies tingling Neuro Denies abnormal gait, Denies dizziness, Denies numbness and Denies tingling Endo Denies palpitations Physical Exam Vital Signs: Last Vital Signs Pulse 85 06/12/23 12:44 BP 122/74 06/12/23 12:44 BMI result Body Mass Index 28.1 Const Other: hyperactive General: cooperative, comfortable and no acute distress Orientation/consciousness: patient oriented x3 Neck Neck: Yes normal visual inspection Resp Effort & Inspection: normal respiratory effort Auscultation: clear to auscultation bilaterally, no crackles, no rales, no rhonchi and no wheezes Cardio Jugular venous distension: no JVD Rate: regular rate Rhythm: regular rhythm Heart sounds: S1 normal heart sound present, S2 normal heart sound present, no murmurs and no rubs Neuro General: patient oriented x3 Extrem General: Yes normal to inspection Psych Appearance: grossly normal Mental Status: mental status grossly normal Speech and movement: Normal speech and movement present Assessment & Plan Assessment & Plan (1) Angina of effort: Code(s): I20.8 - Other forms of angina pectoris Plan: Hx CAD, prior CABG, known occluded SVG graft to RCA, PCI to RCA with last cardia c cath on 12/28/20 showing severe ISR to mid and distal RCA stents and JONNY's were placed. ALEMAN to LAD was patent, known occlusion of OM and RCA graphs. He continued to reports mild stable angina, brought on by walking up hills. He had a nuclear stress test on 06/30/2022 showing basal inferior infarct with minimal ischemia, EF 61%. An echocardiogram was done 06/26/2022 showing EF 60%, basal inferior and inferior lateral akinetic, severe decrease in the RV systolic function. No change from prior echo 11/24/2020. His antianginals have been titrated as needed for reports of chest discomfort. He does have some shortness of breath with walking which is not new. Today he reports that his chest discomfort only occurs if he really pushes himself. It will go away with rest. He is no reports of unstable sounding angina. For antianginals will have him continue amlodipine, isosorbide and Ranexa. Continue aspirin 81 mg indefinitely. It has been over 30 months since his last stent placement. Will stop Brilinta at this time. Continue high-dose atorvastatin and Zetia. Can use nitroglycerin sublingual if needed for chest discomfort. Emergency care if needed for symptoms. Card f/u 6 months, sooner if needed.. (2) Shortness of breath on exertion: Code(s): R06.02 - Shortness of breath Plan: No recent change (3) S/P cardiac catheterization: Onset Date: ~12/2020 Comment: 12/28/2020 mid RCA 95% stenosis, ISR, culprit lesion, drug-eluting stent placed, distal RCA 90% stenosis, JONNY placed patent ALEMAN to LAD, known occluded graft to OM and RCA, severe AV groove circumflex stenosis which is small to moderate size territory Code(s): Z98.890 - Other specified postprocedural states Plan: Most recent catheterization 12/28/2020 (4) S/P cardiac cath: Onset Date: ~08/2019 Comment: 08/2019 occluded graft to RCA, 3 JONNY to [place] RCA Code(s): Z98.890 - Other specified postprocedural states (5) S/P cardiac cath: Onset Date: ~04/2020 Comment: 04/2020 severe ISR RCA heavily calcified, angioplasty, not able to intervene further, ALEMAN patent Code(s): Z98.890 - Other specified postprocedural states (6) S/P CABG x 3: Onset Date: ~09/2018 Comment: ALEMAN to LAD, SVG to Ramus and RPDA Code(s): Z95.1 - Presence of aortocoronary bypass graft (7) Coronary artery disease: Comment: Foll'd by Dr. Gaytan Code(s): I25.10 - Atherosclerotic heart disease of [place] coronary artery without angina pectoris (8) HTN (hypertension): Code(s): I10 - Essential (primary) hypertension Plan: Normal range today. Medications reviewed and no changes. (9) HLD (hyperlipidemia): Code(s): E78.5 - Hyperlipidemia, unspecified Plan: [place] LDL goal less than 70. Last labs 01/19/21 shows LDL 119. Repatha was added to his statin and zetia. Labs done 10/14/2021 shows LDL 11. At this time he is only on high-dose atorvastatin and Zetia. No recent lipid profile for review. Labs ordered done by his PCP. There is a lipid order in place in our system. Patient informed (10) Stented coronary artery: Code(s): Z95.5 - Presence of coronary angioplasty implant and graft Coding Level of Care Code Est Pt Level 4 (77801) Diagnoses Angina of effort I20.8 Shortness of breath on exertion R06.02 S/P cardiac catheterization Z98.890 S/P CABG x 3 Z95.1 Coronary artery disease I25.10 HTN (hypertension) I10 HLD (hyperlipidemia) E78.5 Stented coronary artery Z95.5 Time Spent (min) 26
== END 2023-06-12 13:28 | disposition home or self-care (01) ==
PROVIDERS: PCP Internal Medicine; Visit Provider Nurse Practitioner Family
DX: I20.8 Other forms of angina pectoris (principal); R06.02 Shortness of breath; Z98.890 Other specified postprocedural states; Z95.1 Presence of aortocoronary bypass graft; I25.10 Atherosclerotic heart disease of native coronary artery without angina pectoris; I10 Essential (primary) hypertension; E78.5 Hyperlipidemia, unspecified; Z95.5 Presence of coronary angioplasty implant and graft
CPT/HCPCS: 99214

== ENCOUNTER → 2023-06-12 12:35 | Outpatient (BNVA) | payer OTHER, SELFPAY | PROVIDERS: PCP Internal Medicine; Visit Provider Nurse Practitioner Family | DX: I25.10 Atherosclerotic heart disease of native coronary artery without angina pectoris (principal); I10 Essential (primary) hypertension; R06.02 Shortness of breath; E78.5 Hyperlipidemia, unspecified; F17.210 Nicotine dependence, cigarettes, uncomplicated; Z98.890 Other specified postprocedural states; Z95.1 Presence of aortocoronary bypass graft; Z95.5 Presence of coronary angioplasty implant and graft | CPT/HCPCS: 99212 ==

== ENCOUNTER 2023-06-27 09:02 | Outpatient (REF) | payer OTHER, SELFPAY ==
--- NOTE | ~2023-06-27 | CT_ITS ---
EXAMINATION: CT ENTEROGRAPHY ABDOMEN AND PELVIS WITH CONTRAST CLINICAL INFORMATION: Periumbilical pain. COMPARISON: CT scan of the abdomen and pelvis dated 04/20/2022 and several older exams. Ultrasound of the abdomen dated 04/21/2022. TECHNIQUE: Study performed with oral VoLumen (1350 mL) and 480 mL of water to distend the abdomen. The patient was injected with 85 mL Omnipaque 350 intravenous contrast which was administered without adverse effect. Coronal and sagittal reformatted images were obtained at the technologist's workstation. This CT examination was performed using dose optimization techniques as appropriate, variously including the following: *Automated exposure control *Adjustment of mA and/or kV according to patient size (this includes techniques or standardized protocols for targeted exams where dose is matched to indication/reason for exam; i.e. extremities or head) *Use of iterative reconstruction technique DLP: 334.5 mGy-cm FINDINGS: GASTROINTESTINAL FINDINGS: Stomach/esophagus: There is fluid distention of the distal esophagus, which likely represents reflux of the orally ingested contrast. The esophagus appears otherwise unremarkable. The stomach is well distended and normal in appearance. Small intestine: Satisfactorily distended and normal in appearance, including the terminal ileum. Large intestine: The colon is decompressed and not well assessed. There is small volume fecal material seen scattered throughout the colon. No perirectal changes demonstrated. The appendix is not seen. Additional findings: No abnormal enhancement of the vasa recta or significant mesenteric or retroperitoneal lymphadenopathy is seen. No abdominal abscess or fistulous tract demonstrated. ABDOMINAL AND PELVIC CT FINDINGS: Abdominal wall: There is diastases of the rectus abdominis muscles with midline bulging of the peritoneum. Underlying hernia mesh is seen in place and appears intact. No evidence of recurrent midline abdominal wall hernia noted. Liver, gallbladder, biliary tract: Normal. Pancreas: Mild diffuse fatty infiltration in the pancreatic head noted. Pancreas otherwise unremarkable. No pancreatic ductal dilatation or peripancreatic fat stranding. Spleen: Interval decrease in size of the results capsular fluid collection in the spleen is seen, now measuring 2.6 x 0.6 x 2.5 cm as compared to 10 x 0.8 x 5.3 cm (04/20/2022), consistent with a resolving subcapsular hematoma. Spleen otherwise normal in size and appearance. Adrenal glands and kidneys: Normal. Ureters and bladder: Normal. Lymphovascular structures: Abdominal aorta normal in caliber with moderate atherosclerotic calcifications of the aorta and iliofemoral vessels and other branch vessels, including the left renal artery. No periaortic collections. No significant abdominal or pelvic adenopathy or free fluid. Bones: Moderate vertebral spondylosis in the lower thoracic spine and mild vertebral spondylosis in the lumbar spine. No suspicious bone findings. Lung bases: Again seen are small solid noncalcified pleural-based 3 to 4 mm nodular densities, unchanged compared to the prior exam, unchanged dating back to 02/04/2018, consistent with benign findings, warranting no additional imaging follow-up per the Fleischner criteria. CT/CT enterography IMPRESSION: * No acute intra-abdominal or pelvic findings seen to explain the patient's periumbilical pain. * Interval decrease in size of the subcapsular fluid collection in the spleen, consistent with a resolving subcapsular hematoma. * Moderate atherosclerotic calcifications of the aorta and branch vessels. * Diastases of the rectus abdominis muscles with underlying hernia mesh in place. No evidence of recurrent hernia.
[2023-06-27] MEDS: Sorbitol/Mannit/Xanth Imaging 500 ML LIQUID 1500 ML PO (11:01)
[2023-06-27] MEDS: iohexoL 350 MG/ML 100 ML INFUS..BTL IV (11:09)
[2023-06-28 08:16] LABS: Creatinine POC 0.8 mg/dL (0.5-1.4); GFR POC 60
== END 2023-06-27 09:03 | disposition home or self-care (01) ==
LOC: HO.CT 09:02
PROVIDERS: PCP Internal Medicine; Visit Provider Internal Medicine Gastroenterology
DX: R10.33 Periumbilical pain (principal)
CPT/HCPCS: 74177; 82565; Q9967

== ENCOUNTER 2023-07-17 10:12 | Emergency (ER) | payer OTHER, SELFPAY ==
--- NOTE | ~2023-07-17 | XR_ITS ---
EXAMINATION: XR CHEST CLINICAL INFORMATION: Chest pain. COMPARISON: CT chest 12/28/2022. TECHNIQUE: 2 views of the chest were obtained. FINDINGS: The lungs are well-expanded and clear of acute process. The heart size and pulmonary vascularity is normal. There are mediastinal ximena and median sternotomy sutures from previous CABG. There is mild spondylosis dorsal spine. XR/XR chest 2V IMPRESSION: Unremarkable chest exam. No acute cardiopulmonary process seen.
--- NOTE | 2023-07-17 10:15 | ECG_ITS ---
Test Reason : CHEST PAIN Blood Pressure : / mmHG Vent. Rate : 108 BPM Atrial Rate : 108 BPM P-R Int : 146 ms QRS Dur : 102 ms QT Int : 348 ms P-R-T Axes : 074 048 011 degrees QTc Int : 466 ms Sinus tachycardia RSR' or QR pattern in V1 suggests right ventricular conduction delay Possible Left atrial enlargement Nonspecific ST abnormality Abnormal ECG When compared with ECG of 21-AUG-2022 16:28, Vent. rate has increased BY 53 BPM Non-specific change in ST segment in Inferior leads QT has lengthened Referred By: Generic ED Physician Electronically Signed By:PAM BENEDICT MD
[2023-07-17 10:26] VITALS: BP 157/91; PULSE 100; RESP 19; TEMP 36.6; O2SAT 99; BMI 27.9
[2023-07-17 10:40] VITALS: BP 178/84; PULSE 103; RESP 18; TEMP 36.9; O2SAT 98
--- NOTE | 2023-07-17 10:48 | ED.CHESTPAIN ---
HPI - Chest Pain General Chief Complaint: Chest Pain Stated Complaint: Chest pain/Diff breathing Time Seen by Provider: 07/17/23 10:47 Source: patient Mode of arrival: ambulatory Limitations: no limitations History of Present Illness HPI narrative: 68-year-old male who presents emergency department for evaluation of chest pain and productive cough x4 days. Patient states he has a persistent cough productive of green, thick phlegm. He states that the coughing spells trigger nausea in him he has had 1 or 2 episodes of vomiting. Patient is also complaining of chest pain. Describes the pain is a sharp pain located in the center of his chest, worse with coughing worse with breathing. Patient does have COPD and he states that he was short of breath but not above his baseline. He denied fever, chills, diarrhea, myalgias arthralgias Related Data Home Medications Medication Instructions Recorded Confirmed acarbose 50 mg tablet 50 mg PO BID 06/23/20 01/10/23 aspirin 81 mg tablet,delayed 81 mg PO DAILY 06/23/20 06/12/23 release (Adult Low Dose Aspirin) atorvastatin 80 mg tablet 80 mg PO DAILY 06/23/20 06/12/23 clonazepam 1 mg tablet 1 mg PO DAILY 06/23/20 06/12/23 loratadine 10 mg tablet 10 mg PO DAILY 06/23/20 06/12/23 diclofenac sodium 1 % topical gel 1 ea topical BID 04/06/22 06/12/23 dulaglutide 0.75 mg/0.5 mL 1 ea subcut QWEEK 04/06/22 06/12/23 subcutaneous pen injector (Trulicity) clobetasol 0.05 % topical ointment 1 applic topical BID 04/20/22 06/12/23 acetaminophen 650 mg 650 mg PO Q8H 05/09/22 06/12/23 tablet,extended release albuterol sulfate 90 mcg/actuation 2 puff inhalation Q6H PRN 05/09/22 06/12/23 aerosol inhaler (Ventolin HFA) insulin glargine 100 unit/mL (3 50 unit subcut QPM 05/09/22 06/12/23 mL) subcutaneous pen (Lantus Solostar U-100 Insulin) multivitamin (One Daily 1 tab PO DAILY 05/15/22 06/12/23 Multivitamin tablet) naloxone 4 mg/actuation nasal spray 0 spray intranasal 05/15/22 06/12/23 blood sugar diagnostic (FreeStyle #10 ea 01/01/23 06/12/23 Lite Strips) halobetasol propionate 0.05 % appl topical 01/01/23 06/12/23 topical cream lancets 28 gauge (FreeStyle #100 ea 01/01/23 01/10/23 Lancets) quetiapine 25 mg tablet 0 mg PO 01/01/23 06/12/23 Previous Rx's Medication Instructions Recorded psyllium husk (aspartame) 3.4 gram 3.4 g PO DAILY #30 ea 04/22/22 oral powder packet (Metamucil Fiber Singles) nitroglycerin 0.4 mg sublingual 0.4 mg sublingual Q5M #25 ea 06/29/22 tablet pantoprazole 40 mg tablet,delayed 40 mg PO DAILY #30 tabs 06/29/22 release cyclobenzaprine 5 mg tablet 5 mg PO TID PRN muscle spasm #10 08/11/22 tabs cyclobenzaprine 10 mg tablet 10 mg PO TID PRN muscle spasm #20 08/21/22 tabs ibuprofen 800 mg tablet 800 mg PO Q8H PRN pain #30 tabs 08/21/22 simethicone 180 mg capsule 180 mg PO BID PRN for abdominal 08/25/22 pain #60 caps ezetimibe 10 mg tablet 10 mg PO DAILY 90 days #90 tabs 11/17/22 sennosides 8.6 mg capsule (senna) 8.6 mg PO BEDTIME #30 caps 11/17/22 Anoro Ellipta 62.5 mcg-25 1 inh inhalation DAILY 30 days #1 01/02/23 mcg/actuation powder for ea inhalation (umeclidinium-vilanterol) nebulizer and compressor #1 ea 01/02/23 theophylline 400 mg 400 mg PO DAILY #30 tabs 01/15/23 tablet,extended release 24 hr amlodipine 2.5 mg tablet 2.5 mg PO DAILY 90 days #90 tabs 03/12/23 losartan 25 mg tablet 25 mg PO DAILY #90 tabs 03/12/23 ranolazine 1,000 mg 1,000 mg PO BID 90 days #180 tabs 03/12/23 tablet,extended release,12 hr metoprolol tartrate 50 mg tablet 50 mg PO BID #60 tabs 04/09/23 isosorbide mononitrate 120 mg 120 mg PO QAM #30 tabs 07/05/23 tablet,extended release 24 hr mesalamine 0.375 gram 1.5 g (4 x 0.375 gram) PO QAM #120 07/05/23 capsule,extended release 24 hr caps docusate sodium 100 mg capsule 100 mg PO BID #60 caps 07/11/23 doxycycline hyclate 100 mg tablet 100 mg PO Q12H 7 days #14 tabs 07/17/23 Allergies Allergy/AdvReac Type Severity Reaction Status Date / Time Penicillins Allergy Mild RASH Verified 07/17/23 10:26 ciprofloxacin [From Cipro] Allergy Unknown RASH Verified 07/17/23 10:26 Review of Systems Review of Systems: Yes all other systems are reviewed and are negative [facility] Past Medical History [facility] Narrative: Social history: Patient continues to smoke 7 cigarettes per day times 55 years. He occasionally drinks alcohol. He denies drug use. Medical History Abnormal CT scan, gastrointestinal tract Memory difficulties On anticoagulant therapy On beta russ at home Angina of effort HLD (hyperlipidemia) HTN (hypertension) COPD (chronic obstructive pulmonary disease) Arthritis Diabetes mellitus, type 2 Coronary artery disease Dizziness Peripheral vascular disease Surgical History Hx of colonoscopy S/P cardiac catheterization (~12/2020) S/P cardiac cath (~04/2020) Stented coronary artery S/P cardiac cath (~08/2019) S/P CABG x 3 (~09/2018) H/O coronary artery bypass surgery Social History Household Members: Children Housing: House Alcohol intake: current Alcohol intake frequency: holidays/special occasions only Patient Tobacco Use Status: Current everyday Tobacco user Tobacco use type: Cigarette Cigarette Packs Per Day: 1 Cigarettes Per Day: 8 Smoked in Last 30 Days: Yes Use of substances other than those prescribed or required for medical reasons: No Advance Directives: Yes Advance Directives on File: Yes Advance Directives Date on File: 04/24/22 service: No Current occupational status: disabled Physical Exam Vital Signs: Vital Signs: Last Vital Signs Temp 98.4 F 07/17/23 10:40 Pulse 68 07/17/23 14:10 Resp 16 07/17/23 14:10 BP 162/58 H 07/17/23 14:10 Pulse Ox 100 07/17/23 14:10 O2 Del Method Room Air 07/17/23 14:10 BMI result Body Mass Index 27.9 Vital signs revealed an elevated blood pressure of 162/58, O2 saturation was 100% on room air Exam General: Awake, alert in no distress Head: Normocephalic, atraumatic EENT: PERRL, Lids normal, sclera normal, conjunctiva normal, nose normal , ears normal, throat without erythema or exudates Neck: Supple, no adenopathy, no trachea midline or C-spine tenderness Lung: breath sounds symmetric, no wheezing, rales or rhonchi Chest: symmetric movement, nontender Heart: regular rate and rhythm, normal S1, S2 no murmurs or rubs Abdomen: soft, non-tender, nondistended, normal bowel sounds Back: no vertebral tenderness, no CVAT Extremities: no deformities, moves all extremities symmetrically Skin: no rashes, no lesion, normal color and warmth Neuro: Awake, alert, oriented, normal speech, cranial nerves intact, moves all extremities symmetrically Psych: Pleasant, cooperative Medical Decision Making Medical Decision Making MDM Narrative: 68-year-old male who presents emergency department for evaluation of chest pain and productive cough x4 days. The patient's chest pain is pleuritic. Vital signs did reveal an elevated blood pressure with a normal O2 saturation of 100% on room air. Physical examination was unremarkable. Following evaluation was ordered: CBC, BMP, troponin, chest x-ray two view, EKG 14:30 My independent interpretation patient's laboratory evaluation is as follows: Glucose elevate of 251. The patient's high sensitive troponin I was detectable at 3.9 but not elevated. COVID-19, influenza and RSV were negative Chest x-ray revealed no acute disease. Patient's symptoms and presentation consistent with acute bronchitis, given the fact that the patient has COPD and continues to smoke you will be treated for bacterial bronchitis with doxycycline 100 mg every 12 hours for 7 days. He was advised to take his other medications as prescribed by his providers and follow-up with his PCP for re-evaluation in 2 days. Differential Diagnosis Differential Diagnoses: The differential diagnosis associated with the presentation includes Differential diagnosis includes was not limited to myocardial infarction, myocardial ischemia, pneumonia, bronchitis, viral since Admission/Observation Consideration of admission/observation: Escalation of care including admission/observation considered Lab Data [facility] Lab Attestation statement: I reviewed the patient's lab results. See MDM above 07/17/23 11:08 07/17/23 11:08 Labs: Lab Results 07/17/23 Range/Units 11:08 WBC 6.8 (4.8-10.8) X10*3/uL RBC 4.33 L (4.60-5.80) X10*6/uL Hgb 14.3 (14.0-18.0) g/dl Hct 42.7 (42.0-52.0) % MCV 98.6 H (80.0-98.0) fL MCH 33.0 (27.0-33.0) pg MCHC 33.5 (31.0-36.0) g/dl RDW 12.1 (11.0-16.0) % Plt Count 173 (160-400) X10*3/uL MPV 10.7 (9.4-12.4) fL Immature Gran % (Auto) 0.1 (0.0-0.4) % Neut % (Auto) 71.5 (45-73) % Lymph % (Auto) 16.7 L (20-40) % Grainger % (Auto) 9.8 (2-11) % Eos % (Auto) 1.6 (0-4) % Baso % (Auto) 0.3 (0-2) % Lymph # (Auto) 1.1 L (1.2-4.9) X10*3/uL Grainger # (Auto) 0.7 (0.1-1.2) X10*3/uL Eos # (Auto) 0.1 (0.0-0.4) X10*3/uL Baso # (Auto) 0.0 (0.0-0.2) X10*3/uL Abs Immat Gran (auto) 0.01 (0.00-0.03) X10*3/uL Absolute Neuts (auto) 4.9 (2.0-8.3) x10*3/uL Absolute Nucleated RBC 0.000 (0.0-0.012) X10*3/uL Nucleated RBC % (auto) 0.0 (0.0-0.2) /100WBC Sodium 144 (135-145) mmol/L Potassium 4.1 (3.3-5.1) mmol/L Chloride 110 H (96-108) mmol/L Carbon Dioxide 27 (22-29) mmol/L Anion Gap 11 L (12-20) BUN 11 (9-16) mg/dL Creatinine 0.94 (0.5-1.4) mg/dL Estim Creat Clear Calc 74.1 Estimated GFR > 60 Random Glucose 251 H (60-115) mg/dL Calcium 9.6 D (8.4-10.2) mg/dL Troponin I High Sens 3.9 (<3.5-35.0) ng/L Influenza Type A (PCR) NEGATIVE (Negative) Influenza Type B (PCR) NEGATIVE (Negative) RSV RNA Qual (PCR) NEGATIVE (Negative) SARS-CoV-2 RNA (RT-PCR) NEGATIVE (Negative) Independent Interpretation I performed an independent interpretation of an: EKG and Plain X-Ray Interpretation: My independent interpretation patient's 12 EKG is as follows: Sinus tachycardia with a rate of 108, normal OR interval, prolonged QRS duration of 102 milliseconds, normal QTC interval, inverted T-wave in lead 3 and AVF, less than [address] segment depression V4 and V5, compared to previous EKGs the ST segment depression in V for in V5 are new My independent interpretation patient's chest x-ray is as follows: No acute disease Radiology Impression Discussion of test interpretation with radiology: I have reviewed the radiologist's reading. Radiologist Impression: XR chest 2V IMPRESSION: Unremarkable chest exam. No acute cardiopulmonary process seen. Dictated By: Beto Preciado MD Discharge Plan Discharge Clinical Impression: Bronchitis Patient Disposition: Home, Self-Care Instructions: Acute Bronchitis (ED) Additional Instructions: Your blood work was normal. Your EKG was unremarkable and unchanged from your previous EKG Your chest x-ray did not show any pneumonia Your symptoms are consistent with bronchitis which is inflammation/infection of your breathing tubes Take doxycycline 100 mg, 1 pill every 12 hours for 7 days Continue taking your other medications as prescribed by your providers Follow-up with your doctor in 2 days. Please return to the emergency department if your symptoms get worse or if you develop any symptoms that are concerning to you. Prescriptions: New doxycycline hyclate 100 mg tablet 100 mg PO Q12H 7 Days Qty: 14 0RF No Action nitroglycerin 0.4 mg tablet, sublingual 0.4 mg sublingual Q5M Qty: 25 2RF pantoprazole 40 mg tablet,delayed release (DR/EC) 40 mg PO DAILY Qty: 30 3RF simethicone 180 mg capsule 180 mg PO BID PRN (Reason: for abdominal pain) Qty: 60 3RF senna 8.6 mg capsule 8.6 mg PO BEDTIME Qty: 30 1RF ezetimibe 10 mg tablet 10 mg PO DAILY 90 Days Qty: 90 3RF theophylline 400 mg tablet extended release 24 hr 400 mg PO DAILY Qty: 30 6RF amlodipine 2.5 mg tablet 2.5 mg PO DAILY 90 Days Qty: 90 1RF ranolazine 1,000 mg tablet extended release 12 hr 1,000 mg PO BID 90 Days Qty: 180 1RF losartan 25 mg tablet 25 mg PO DAILY Qty: 90 1RF metoprolol tartrate 50 mg tablet 50 mg PO BID Qty: 60 11RF mesalamine 0.375 gram capsule,extended release 24hr 1.5 g PO QAM Qty: 120 0RF isosorbide mononitrate 120 mg tablet extended release 24 hr 120 mg PO QAM Qty: 30 11RF docusate sodium 100 mg capsule 100 mg PO BID Qty: 60 2RF cyclobenzaprine 10 mg tablet 10 mg PO TID PRN (Reason: muscle spasm) Qty: 20 0RF ibuprofen 800 mg tablet 800 mg PO Q8H PRN (Reason: pain) Qty: 30 0RF diclofenac sodium 1 % gel 1 ea topical BID Trulicity 0.75 mg/0.5 mL pen injector 1 ea subcut QWEEK clobetasol 0.05 % ointment 1 applic topical BID Metamucil Fiber Singles 3.4 gram Powder In Packet 3.4 g PO DAILY Qty: 30 0RF cyclobenzaprine 5 mg tablet 5 mg PO TID PRN (Reason: muscle spasm) Qty: 10 0RF acarbose 50 mg tablet 50 mg PO BID loratadine 10 mg tablet 10 mg PO DAILY clonazepam 1 mg tablet 1 mg PO DAILY aspirin [Adult Low Dose Aspirin] 81 mg tablet,delayed release (DR/EC) 81 mg PO DAILY atorvastatin 80 mg tablet 80 mg PO DAILY insulin glargine [Lantus Solostar U-100 Insulin] 100 unit/mL (3 mL) insulin pen 50 unit subcut QPM acetaminophen 650 mg tablet extended release 650 mg PO Q8H albuterol sulfate [Ventolin HFA] 90 mcg/actuation HFA aerosol inhaler 2 puff inhalation Q6H PRN multivitamin [One Daily Multivitamin] Tablet 1 tab PO DAILY naloxone 4 mg/actuation spray,non-aerosol 0 spray intranasal Anoro Ellipta 62.5-25 mcg/actuation blister with device 1 inh inhalation DAILY 30 Days Qty: 1 6RF (DME) nebulizer and compressor Device See Rx Instructions .Route Qty: 1 0RF Rx Instructions: As directed (DME) lancets [FreeStyle Lancets] 28 gauge misc See Rx Instructions .ROUTE BID Qty: 100 Rx Instructions: As directed (DME) FreeStyle Lite Strips Strip See Rx Instructions .ROUTE BID Qty: 10 Rx Instructions: As directed quetiapine 25 mg tablet 0 mg PO halobetasol propionate 0.05 % cream topical
--- NOTE | 2023-07-17 11:11 | PC.NURSE ---
labs obtained and sent to lab.
[2023-07-17 11:13] LABS: MANUAL DIFF FLAG NO
[2023-07-17 11:17] LABS: Basophils Percent Auto 0.3 % (0-2); Eosinophils Absolute Auto 0.1 X10*3/uL (0.0-0.4); Eosinophils Percent Auto 1.6 % (0-4); Hematocrit 42.7 % (42.0-52.0); Hemoglobin 14.3 g/dl (14.0-18.0); Imm Gran Abs Auto 0.01 X10*3/uL (0.00-0.03); Imm Gran Pct Auto 0.1 % (0.0-0.4); Lymphocytes Absolute Auto 1.1 X10*3/uL (1.2-4.9); Lymphocytes Percent Auto 16.7 % (20-40); Mean Corpuscular HGB Conc 33.5 g/dl (31.0-36.0); Mean Corpuscular Volume 98.6 fL (80.0-98.0); Mean Platelet Volume 10.7 fL (9.4-12.4); Monocytes Absolute Auto 0.7 X10*3/uL (0.1-1.2); Monocytes Percent Auto 9.8 % (2-11); Neutrophils Absolute Auto 4.9 x10*3/uL (2.0-8.3); Neutrophils Percent Auto 71.5 % (45-73); Platelet Count 173 X10*3/uL (160-400); Red Blood Count 4.33 X10*6/uL (4.60-5.80); Red Cell Distribution Width 12.1 % (11.0-16.0); White Blood Count 6.8 X10*3/uL (4.8-10.8)
[2023-07-17 11:26] LABS: Anion Gap 11 (12-20); Blood Urea Nitrogen 11 mg/dL (9-16); Calcium 9.6 mg/dL (8.4-10.2); Carbon Dioxide 27 mmol/L (22-29); Chloride 110 mmol/L (96-108); Creatinine Clr Calc Pharmacy 74.1; Estimated Glomerular Filt Rate > 60; Glucose Random 251 mg/dL (60-115); Potassium 4.1 mmol/L (3.3-5.1); Sodium 144 mmol/L (135-145)
[2023-07-17 11:34] LABS: Troponin-I High Sensitivity 3.9 ng/L (<3.5-35.0)
[2023-07-17 11:49] VITALS: BP 150/72; PULSE 82; RESP 18; O2SAT 98
[2023-07-17 11:50] LABS: Influenza A PCR NEGATIVE (Negative); Influenza B PCR NEGATIVE (Negative); Resp Syncy Virus RNA Qual PCR NEGATIVE (Negative); SARS COV2 PCR INHOUSE NEGATIVE (Negative)
--- NOTE | 2023-07-17 11:51 | PC.NURSE ---
vss and up to date at this time. nsr on the telemetry monitor. pt verbalizing 6/10 chest pain only on inspiration. productive cough noted. lung sounds clear throughout. no sob/wob noted at this time. respirations even and unlabored. call ellison placed within reach.
[2023-07-17 14:10] VITALS: BP 162/58; PULSE 68; RESP 16; O2SAT 100
[2023-07-17] MEDS: Doxycycline Monohydrate 100 MG CAPSULE PO (14:44)
--- NOTE | 2023-07-17 14:45 | PC.NURSE ---
medication administered per provider order. pt provided w/ dc paperwork.
== END 2023-07-17 14:46 | disposition home or self-care (01) ==
PROVIDERS: Emergency Provider Emergency Medicine Emergency Medical Services; PCP Internal Medicine
DX: J40 Bronchitis, not specified as acute or chronic (principal); R07.89 Other chest pain; R05.9 Cough, unspecified; R11.2 Nausea with vomiting, unspecified; F17.210 Nicotine dependence, cigarettes, uncomplicated; Z20.822 Contact with and (suspected) exposure to COVID-19; Z20.828 Contact with and (suspected) exposure to other viral communicable diseases; Z71.6 Tobacco abuse counseling; Z79.899 Other long term (current) drug therapy
CPT/HCPCS: 0241U; 36415; 71046; 80048; 84484; 85025; 93005; 99284; 99285

== ENCOUNTER 2023-09-03 15:31 | Outpatient (REF) | payer OTHER, SELFPAY ==
--- NOTE | ~2023-09-03 | XR_ITS ---
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 Positive TB test. COMPARISON: Chest radiograph 07/17/2023. CT chest 12/28/2022. Chest radiograph 08/11/2022. TECHNIQUE: 2 views of the chest were obtained. FINDINGS: Normal heart size. Midline sternotomy wires. Mediastinal surgical clips. Coronary artery calcifications. Stable focal interstitial thickening/architectural distortion in the right upper lobe, best visualized on a prior CT chest from 12/28/2022. No new focal airspace opacities, pleural effusion or pneumothorax. Thoracic spondylosis. No acute osseous findings. Visualized upper abdomen is within normal limits. XR/XR chest 2V IMPRESSION: No acute cardiopulmonary findings. Unchanged focal interstitial abnormality and architectural distortion projecting over the right upper lobe, most likely sequela of prior tuberculosis, best characterized on CT chest from 12/28/2022. Reevaluation with CT chest could be obtained as clinically warranted.
== END 2023-09-03 15:32 | disposition home or self-care (01) ==
LOC: HO.HHCX 15:31
PROVIDERS: Visit Provider Family Medicine
DX: R76.11 Nonspecific reaction to tuberculin skin test without active tuberculosis (principal)
CPT/HCPCS: 71046

== ENCOUNTER 2023-10-18 15:25 | Emergency (ER) | payer OTHER, SELFPAY ==
--- NOTE | ~2023-10-18 | XR_ITS ---
EXAMINATION: XR CHEST CLINICAL INFORMATION: Chest pain. Covid positive. COMPARISON: None available. TECHNIQUE: 2 views of the chest were obtained. FINDINGS: The lungs are well-expanded and clear of acute pneumonic process. Heart size and pulmonary vascularity is normal. There are median sternotomy sutures and mediastinal ximena from previous CABG. There is mild spondylosis ventral dorsal spine. XR/XR chest 2V IMPRESSION: Unremarkable chest exam.
--- NOTE | 2023-10-18 15:28 | ECG_ITS ---
Test Reason : CHEST PAIN Blood Pressure : / mmHG Vent. Rate : 102 BPM Atrial Rate : 102 BPM P-R Int : 138 ms QRS Dur : 090 ms QT Int : 338 ms P-R-T Axes : 073 059 000 degrees QTc Int : 440 ms Sinus tachycardia Possible Left atrial enlargement Inferior infarct (cited on or before 18-OCT-2023) Abnormal ECG When compared with ECG of 17-JUL-2023 10:19, No significant change was found Referred By: Generic ED Physician Electronically Signed By:ORLANDO CONN MD
[2023-10-18 15:51] VITALS: BP 129/86; PULSE 107; RESP 22; TEMP 36.8; O2SAT 98; BMI 27.4
--- NOTE | 2023-10-18 15:53 | ED_ITS ---
HPI - Chest Pain General Chief Complaint: Dyspnea Stated Complaint: Covid+ chest pain,sob Time Seen by Provider: 10/18/23 20:40 Source: patient Mode of arrival: ambulatory Limitations: no limitations History of Present Illness HPI narrative: patient with cough, wheeze and chest pain for the past 2 days. He took a covid test today and it was positive MD complaint: chest pain Pertinent past history: coronary artery disease Onset (ago): day(s) Timing of current episode: constant Pain location: substernal Severity: mild Quality: sharp Related Data Home Medications Medication Instructions Recorded Confirmed acarbose 50 mg tablet 50 mg PO BID 06/23/20 01/10/23 aspirin 81 mg tablet,delayed 81 mg PO DAILY 06/23/20 06/12/23 release (Adult Low Dose Aspirin) atorvastatin 80 mg tablet 80 mg PO DAILY 06/23/20 06/12/23 clonazepam 1 mg tablet 1 mg PO DAILY 06/23/20 06/12/23 loratadine 10 mg tablet 10 mg PO DAILY 06/23/20 06/12/23 diclofenac sodium 1 % topical gel 1 ea topical BID 04/06/22 06/12/23 dulaglutide 0.75 mg/0.5 mL 1 ea subcut QWEEK 04/06/22 06/12/23 subcutaneous pen injector (Trulicity) clobetasol 0.05 % topical ointment 1 applic topical BID 04/20/22 06/12/23 acetaminophen 650 mg 650 mg PO Q8H 05/09/22 06/12/23 tablet,extended release albuterol sulfate 90 mcg/actuation 2 puff inhalation Q6H PRN 05/09/22 06/12/23 aerosol inhaler (Ventolin HFA) insulin glargine 100 unit/mL (3 50 unit subcut QPM 05/09/22 06/12/23 mL) subcutaneous pen (Lantus Solostar U-100 Insulin) multivitamin (One Daily 1 tab PO DAILY 05/15/22 06/12/23 Multivitamin tablet) naloxone 4 mg/actuation nasal spray 0 spray intranasal 05/15/22 06/12/23 blood sugar diagnostic (FreeStyle #10 ea 01/01/23 06/12/23 Lite Strips) halobetasol propionate 0.05 % appl topical 01/01/23 06/12/23 topical cream lancets 28 gauge (FreeStyle #100 ea 01/01/23 01/10/23 Lancets) quetiapine 25 mg tablet 0 mg PO 01/01/23 06/12/23 Previous Rx's Medication Instructions Recorded psyllium husk (aspartame) 3.4 gram 3.4 g PO DAILY #30 ea 04/22/22 oral powder packet (Metamucil Fiber Singles) nitroglycerin 0.4 mg sublingual 0.4 mg sublingual Q5M #25 ea 06/29/22 tablet pantoprazole 40 mg tablet,delayed 40 mg PO DAILY #30 tabs 06/29/22 release cyclobenzaprine 5 mg tablet 5 mg PO TID PRN muscle spasm #10 08/11/22 tabs cyclobenzaprine 10 mg tablet 10 mg PO TID PRN muscle spasm #20 08/21/22 tabs ibuprofen 800 mg tablet 800 mg PO Q8H PRN pain #30 tabs 08/21/22 simethicone 180 mg capsule 180 mg PO BID PRN for abdominal 08/25/22 pain #60 caps ezetimibe 10 mg tablet 10 mg PO DAILY 90 days #90 tabs 11/17/22 sennosides 8.6 mg capsule (senna) 8.6 mg PO BEDTIME #30 caps 11/17/22 nebulizer and compressor #1 ea 01/02/23 ranolazine 1,000 mg 1,000 mg PO BID 90 days #180 tabs 03/12/23 tablet,extended release,12 hr metoprolol tartrate 50 mg tablet 50 mg PO BID #60 tabs 04/09/23 isosorbide mononitrate 120 mg 120 mg PO QAM #30 tabs 07/05/23 tablet,extended release 24 hr docusate sodium 100 mg capsule 100 mg PO BID #60 caps 07/11/23 doxycycline hyclate 100 mg tablet 100 mg PO Q12H 7 days #14 tabs 07/17/23 mesalamine 0.375 gram 1.5 g (4 x 0.375 gram) PO QAM #120 08/01/23 capsule,extended release 24 hr caps theophylline 400 mg 400 mg PO DAILY #30 tabs 08/01/23 tablet,extended release 24 hr amlodipine 2.5 mg tablet 2.5 mg PO DAILY 90 days #90 tabs 08/28/23 losartan 25 mg tablet 25 mg PO DAILY #90 tabs 08/28/23 Anoro Ellipta 62.5 mcg-25 1 inh inhalation DAILY 30 days #60 10/02/23 mcg/actuation powder for ea inhalation (umeclidinium-vilanterol) [id number] 2.5 20 ml PO Q4H PRN cough #118 mL 10/18/23 mg-5 mg-50 mg/5 mL oral liquid (Robitussin Cough and Cold CF) prednisone 20 mg tablet 60 mg (3 x 20 mg) PO DAILY #12 tabs 10/18/23 Allergies Allergy/AdvReac Type Severity Reaction Status Date / Time Penicillins Allergy Mild RASH Verified 10/18/23 15:51 ciprofloxacin [From Cipro] Allergy Unknown RASH Verified 10/18/23 15:51 Review of Systems 2 Review of Systems: Yes all other systems are reviewed and are negative Neurologic: Denies Sensory deficit (Neuro) [facility] Past Medical History Medical History Abnormal CT scan, gastrointestinal tract Memory difficulties On anticoagulant therapy On beta russ at home Angina of effort HLD (hyperlipidemia) HTN (hypertension) COPD (chronic obstructive pulmonary disease) Arthritis Diabetes mellitus, type 2 Coronary artery disease Dizziness Peripheral vascular disease Surgical History Hx of colonoscopy S/P cardiac catheterization (~12/2020) S/P cardiac cath (~04/2020) Stented coronary artery S/P cardiac cath (~08/2019) S/P CABG x 3 (~09/2018) H/O coronary artery bypass surgery Social History Social History Household Members: Children Housing: House Alcohol intake: current Alcohol intake frequency: holidays/special occasions only Patient Tobacco Use Status: Current everyday Tobacco user Tobacco use type: Cigarette Cigarette Packs Per Day: 1 Cigarettes Per Day: 8 Advance Directives: Yes Advance Directives on File: Yes Advance Directives Date on File: 04/24/22 service: No Current occupational status: disabled Physical Exam 2 Vital Signs: Vital Signs: Last Vital Signs Temp 98.3 F 10/18/23 15:51 Pulse 107 H 10/18/23 15:51 Resp 22 H 10/18/23 15:51 BP 129/86 10/18/23 15:51 Pulse Ox 98 10/18/23 15:51 O2 Del Method Room Air 10/18/23 15:51 BMI result Body Mass Index 27.4 Const: General: healthy appearing Nutritional Appearance: average body habitus Orientation/consciousness: oriented to person and patient oriented x3 Limitations: no limitations HEENT: Head: Yes normal to inspection Ears: external ears normal General nose exam: Normal external nose present Mouth: Normal oral and palatal mucosa present and oropharynx normal Throat: Yes posterior oropharynx normal Eyes: General: appearance normal, both eyes and all related structures Neck: Other: supple Neck: Yes normal visual inspection Chest: Chest palpation & inspection: normal inspection of the chest Resp: Other: diffuse wheezing Cardio: Jugular venous distension: no JVD Rate: regular rate Rhythm: r egular rhythm Heart sounds: S1 normal heart sound present and S2 normal heart sound present GI: Inspection: Yes normal to inspection Palpation (GI): Soft to palpation, nontender and No hepatosplenomegaly present Auscultation: normal bowel sounds : General: Yes no CVA tenderness Back/Spine/Pelvis: Back: no CVA tenderness Skin: General skin exam: no rashes or lesions noted Neuro: General: oriented to person and patient oriented x3 Cranial nerves: Yes CN's II-XII intact bilaterally Motor exam (neuro): 5/5 motor strength present throughout Sensory Exam: No Sensory deficit (Neuro) Extrem: General: Yes normal to inspection Psych: Appearance: grossly normal Course Course Course Narrative: This is a rapid medical exam. Deferred additional HPI, ROS, PE to primary provider. 68 yo male with history of asthma, OA, HTN, HLD, DM, GERD here with chest pain, shortness of breath who is COVID +. Symptoms began yesterday. COVID + today. Will obtain labs, EKG, CXR, covid screen VSS Reevaluation(s) Reevaluation #1: patient with upper respiratory infection secondary to COVID, EKG is same as old, doubt cardiac ischemia Time: 20:52 Medical Decision Making Differential Diagnosis Differential Diagnoses: The differential diagnosis associated with the presentation includes (Covid, pneumonia, bronchospasm, cardiac ischemia) Admission/Observation Consideration of admission/observation: Escalation of care including admission/observation considered (upon arrival patient was considered for admission) Lab Data 2 days of constant chest pain, troponin only 11.5 10/18/23 16:04 10/18/23 16:04 Labs: Lab Results 10/18/23 Range/Units 16:04 WBC 4.8 (4.8-10.8) X10*3/uL RBC 5.17 (4.60-5.80) X10*6/uL Hgb 16.4 (14.0-18.0) g/dl Hct 48.1 (42.0-52.0) % MCV 93.0 (80.0-98.0) fL MCH 31.7 (27.0-33.0) pg MCHC 34.1 (31.0-36.0) g/dl RDW 12.5 (11.0-16.0) % Plt Count 146 L (160-400) X10*3/uL MPV 10.8 (9.4-12.4) fL Immature Gran % (Auto) 0.2 (0.0-0.4) % Neut % (Auto) 62.6 (45-73) % Lymph % (Auto) 21.8 (20-40) % Hardy % (Auto) 14.4 H (2-11) % Eos % (Auto) 0.6 (0-4) % Baso % (Auto) 0.4 (0-2) % Lymph # (Auto) 1.0 L (1.2-4.9) X10*3/uL Hardy # (Auto) 0.7 (0.1-1.2) X10*3/uL Eos # (Auto) 0.0 (0.0-0.4) X10*3/uL Baso # (Auto) 0.0 (0.0-0.2) X10*3/uL Abs Immat Gran (auto) 0.01 (0.00-0.03) X10*3/uL Absolute Neuts (auto) 3.0 (2.0-8.3) x10*3/uL Absolute Nucleated RBC 0.000 (0.0-0.012) X10*3/uL Nucleated RBC % (auto) 0.0 (0.0-0.2) /100WBC PT 11.5 (11.1-13.3) SEC INR 0.9 (0.9-1.1) Sodium 140 (135-145) mmol/L Potassium 4.4 (3.3-5.1) mmol/L Chloride 105 (96-108) mmol/L Carbon Dioxide 24 (22-29) mmol/L Anion Gap 15 (12-20) BUN 17 H (9-16) mg/dL Creatinine 1.16 (0.5-1.4) mg/dL Estim Creat Clear Calc 59.5 Estimated GFR > 60 Random Glucose 166 H (60-115) mg/dL Calcium 9.5 (8.4-10.2) mg/dL Total Bilirubin 0.3 (0.0-1.0) mg/dL Direct Bilirubin 0.2 (0.0-0.5) mg/dL AST 29 (5-37) U/L ALT 18 (0-40) U/L Alkaline Phosphatase 95 (39-117) U/L Troponin I High Sens 11.5 D (<3.5-35.0) ng/L Total Protein 7.4 (6.5-8.0) g/dL Albumin 4.2 (3.5-5.0) g/dL COVID-19 ([facility]) Positive A (Negative) COVID-19 Clin Com See Note Independent Interpretation I performed an independent interpretation of an: EKG (sinus 100, nonspecific inferior changes, no st elevation) and Plain X-Ray (no infiltrate) External Record Review External record reviewed: Outpatient record Prescription Management I considered prescription management with: Antibiotic (no evidence of pneumonia will not give abx) Chronic Conditions Patient?s care impacted by: Hypertension and Other (CAD) Discharge Plan Discharge Clinical Impression: COVID-19, Acute upper respiratory infection, Chest pain Patient Disposition: Home, Self-Care Instructions: Upper Respiratory Infection (ED), COVID-19 (Coronavirus Disease 2019) (ED) Prescriptions: New prednisone 20 mg tablet 60 mg PO DAILY Qty: 12 0RF Robitussin Cough and Cold CF 2.5-5-50 mg/5 mL liquid 20 ml PO Q4H PRN (Reason: cough) Qty: 118 0RF No Action nitroglycerin 0.4 mg tablet, sublingual 0.4 mg sublingual Q5M Qty: 25 2RF pantoprazole 40 mg tablet,delayed release (DR/EC) 40 mg PO DAILY Qty: 30 3RF simethicone 180 mg capsule 180 mg PO BID PRN (Reason: for abdominal pain) Qty: 60 3RF senna 8.6 mg capsule 8.6 mg PO BEDTIME Qty: 30 1RF ezetimibe 10 mg tablet 10 mg PO DAILY 90 Days Qty: 90 3RF ranolazine 1,000 mg tablet extended release 12 hr 1,000 mg PO BID 90 Days Qty: 180 1RF metoprolol tartrate 50 mg tablet 50 mg PO BID Qty: 60 11RF isosorbide mononitrate 120 mg tablet extended release 24 hr 120 mg PO QAM Qty: 30 11RF docusate sodium 100 mg capsule 100 mg PO BID Qty: 60 2RF mesalamine 0.375 gram capsule,extended release 24hr 1.5 g PO QAM Qty: 120 2RF theophylline 400 mg tablet extended release 24 hr 400 mg PO DAILY Qty: 30 6RF amlodipine 2.5 mg tablet 2.5 mg PO DAILY 90 Days Qty: 90 2RF losartan 25 mg tablet 25 mg PO DAILY Qty: 90 2RF Anoro Ellipta 62.5-25 mcg/actuation blister with device 1 inh inhalation DAILY 30 Days Qty: 60 0RF cyclobenzaprine 10 mg tablet 10 mg PO TID PRN (Reason: muscle spasm) Qty: 20 0RF ibuprofen 800 mg tablet 800 mg PO Q8H PRN (Reason: pain) Qty: 30 0RF diclofenac sodium 1 % gel 1 ea topical BID Trulicity 0.75 mg/0.5 mL pen injector 1 ea subcut QWEEK clobetasol 0.05 % ointment 1 applic topical BID Metamucil Fiber Singles 3.4 gram Powder In Packet 3.4 g PO DAILY Qty: 30 0RF cyclobenzaprine 5 mg tablet 5 mg PO TID PRN (Reason: muscle spasm) Qty: 10 0RF doxycycline hyclate 100 mg tablet 100 mg PO Q12H 7 Days Qty: 14 0RF acarbose 50 mg tablet 50 mg PO BID loratadine 10 mg tablet 10 mg PO DAILY clonazepam 1 mg tablet 1 mg PO DAILY aspirin [Adult Low Dose Aspirin] 81 mg tablet,delayed release (DR/EC) 81 mg PO DAILY atorvastatin 80 mg tablet 80 mg PO DAILY insulin glargine [Lantus Solostar U-100 Insulin] 100 unit/mL (3 mL) insulin pen 50 unit subcut QPM acetaminophen 650 mg tablet extended release 650 mg PO Q8H albuterol sulfate [Ventolin HFA] 90 mcg/actuation HFA aerosol inhaler 2 puff inhalation Q6H PRN multivitamin [One Daily Multivitamin] Tablet 1 tab PO DAILY naloxone 4 mg/actuation spray,non-aerosol 0 spray intranasal (DME) nebulizer and compressor Device See Rx Instructions .Route Qty: 1 0RF Rx Instructions: As directed (DME) lancets [FreeStyle Lancets] 28 gauge misc See Rx Instructions .ROUTE BID Qty: 100 Rx Instructions: As directed (DME) FreeStyle Lite Strips Strip See Rx Instructions .ROUTE BID Qty: 10 Rx Instructions: As directed quetiapine 25 mg tablet 0 mg PO halobetasol propionate 0.05 % cream topical Referrals: Susie Park MD [Primary Care Provider] - 3 days
[2023-10-18 16:11] LABS: MANUAL DIFF FLAG NO
[2023-10-18 16:13] LABS: Basophils Percent Auto 0.4 % (0-2); Eosinophils Percent Auto 0.6 % (0-4); Hematocrit 48.1 % (42.0-52.0); Hemoglobin 16.4 g/dl (14.0-18.0); Imm Gran Abs Auto 0.01 X10*3/uL (0.00-0.03); Imm Gran Pct Auto 0.2 % (0.0-0.4); Lymphocytes Percent Auto 21.8 % (20-40); Mean Corpuscular HGB Conc 34.1 g/dl (31.0-36.0); Mean Corpuscular Hemoglobin 31.7 pg (27.0-33.0); Mean Platelet Volume 10.8 fL (9.4-12.4); Monocytes Absolute Auto 0.7 X10*3/uL (0.1-1.2); Monocytes Percent Auto 14.4 % (2-11); Neutrophils Percent Auto 62.6 % (45-73); Platelet Count 146 X10*3/uL (160-400); Red Blood Count 5.17 X10*6/uL (4.60-5.80); Red Cell Distribution Width 12.5 % (11.0-16.0); White Blood Count 4.8 X10*3/uL (4.8-10.8)
[2023-10-18 16:18] LABS: INTERNATIONAL NORM RATIO 0.9 (0.9-1.1); Prothrombin Time 11.5 SEC (11.1-13.3)
[2023-10-18 16:25] LABS: COVID-19 Test Positive (Negative); IDNOW Serial# 08D9AD1C
[2023-10-18 16:27] LABS: Alanine Aminotransferase 18 U/L (0-40); Albumin Level 4.2 g/dL (3.5-5.0); Alkaline Phosphatase 95 U/L (39-117); Anion Gap 15 (12-20); Aspartate Amino Transferase 29 U/L (5-37); Bilirubin Direct 0.2 mg/dL (0.0-0.5); Bilirubin Total 0.3 mg/dL (0.0-1.0); Blood Urea Nitrogen 17 mg/dL (9-16); Calcium 9.5 mg/dL (8.4-10.2); Carbon Dioxide 24 mmol/L (22-29); Chloride 105 mmol/L (96-108); Creatinine Clr Calc Pharmacy 59.5; Estimated Glomerular Filt Rate > 60; Glucose Random 166 mg/dL (60-115); Potassium 4.4 mmol/L (3.3-5.1); Sodium 140 mmol/L (135-145); Total Protein 7.4 g/dL (6.5-8.0)
[2023-10-18 16:34] LABS: Troponin-I High Sensitivity 11.5 ng/L (<3.5-35.0)
[2023-10-18 20:58] VITALS: BP 130/82; PULSE 98; RESP 22; TEMP 36.9; O2SAT 98
[2023-10-18] MEDS: predniSONE 20 MG TABLET 60 MG PO (20:58)
[2023-10-18] MEDS: guaiFENesin 200 MG/10 ML 10 ML LIQUID 20 ML PO (20:58)
== END 2023-10-18 21:43 | disposition home or self-care (01) ==
PROVIDERS: Nurse Practitioner Family; Emergency Provider Emergency Medicine; PCP Internal Medicine
DX: U07.1 COVID-19 (principal); J06.9 Acute upper respiratory infection, unspecified; R07.89 Other chest pain; R06.02 Shortness of breath; I25.10 Atherosclerotic heart disease of native coronary artery without angina pectoris; Z79.899 Other long term (current) drug therapy
CPT/HCPCS: 36415; 71046; 80048; 80076; 84484; 85025; 85610; 87635; 93005; 99283

== ENCOUNTER → 2023-10-18 15:28 | Outpatient (BNV) | payer OTHER, SELFPAY | PROVIDERS: PCP Internal Medicine; Visit Provider Internal Medicine Cardiovascular Disease | DX: R00.0 Tachycardia, unspecified (principal); R94.31 Abnormal electrocardiogram [ECG] [EKG] | CPT/HCPCS: 93010 ==

== ENCOUNTER 2023-10-31 10:55 | Outpatient (AMB) | payer OTHER, SELFPAY ==
[2023-10-31 10:56] VITALS: BP 127/67; PULSE 84; O2SAT 99; BMI 27.2
--- NOTE | 2023-10-31 10:56 | A.OFFVIS_ITS ---
Intake Vital Signs 10/31/23 10:56 Height 5 ft 6 in Weight 168 lb 10.458 oz BMI 27.2 BP 127/67 Blood Pressure Location Lt brachial Position Sitting Pulse 84 Pulse Source Doppler Pulse Oximetry (%) 99 Oxygen Delivery Method Room Air Intake Visit Reasons: copd Allergies Penicillins Allergy (Mild, Verified 10/31/23 11:01) RASH ciprofloxacin [From Cipro] Allergy (Unknown, Verified 10/31/23 11:01) RASH HPI copd HPI Details 68-year-old gentleman, active 50+ pack-y ear smoker, followed for underlying moderate COPD , MARU, and pulmonary nodules.? His CT chest showed stable pulmonary nodules.? Patient continues on Anoro with good control of his underlying symptoms.?He completed his sleep study that shows underlying mild obstructive sleep apnea, but he has not received his new CPAP machine yet. He did have recent exacerbation secondary to COVID-19, but now has recovered to baseline. [facility] Medical History Abnormal CT scan, gastrointestinal tract Memory difficulties On anticoagulant therapy On beta russ at home Angina of effort HLD (hyperlipidemia) HTN (hypertension) COPD (chronic obstructive pulmonary disease) Arthritis Diabetes mellitus, type 2 Coronary artery disease Dizziness Peripheral vascular disease Surgical History Hx of colonoscopy S/P cardiac catheterization (~12/2020) S/P cardiac cath (~04/2020) Stented coronary artery S/P cardiac cath (~08/2019) S/P CABG x 3 (~09/2018) H/O coronary artery bypass surgery Social History Household Members: Children Housing: House Alcohol intake: current Alcohol intake frequency: holidays/special occasions only Patient Tobacco Use Status: Current everyday Tobacco user Tobacco use type: Cigarette Cigarette Packs Per Day: 1 Cigarettes Per Day: 8 Advance Directives Date on File: 04/24/22 service: No Current occupational status: disabled Review of Systems Const Denies daytime sleepiness, Denies excessive sweating, Denies fatigue, Denies fever(s), Denies lethargy, Denies malaise, Denies night sweats, Denies snoring and Denies weight loss Eyes Denies blurry vision and Denies itchy eyes ENT Denies nasal congestion, Denies post nasal drip, Denies sinus pain, Denies sinus pressure and Denies other ( Thrush) Card Denies chest pain, Denies pedal edema, Denies dyspnea, Denies orthopnea and Denies paroxysmal nocturnal dyspnea Resp Denies cough, Denies hemoptysis, Denies excessive phlegm production, Denies dyspnea, Denies snoring and Denies wheezing GI Denies abdominal pain and Denies heartburn Musc Denies myalgias, Denies arthralgias and Denies joint swelling Skin/Breast Denies rash Neuro Denies memory loss and Denies seizure-like activity Psych Denies abnormal sleep pattern, Denies anxiety and Denies memory loss Endo Denies excessive sweating, Denies fatigue and Denies heat intolerance Prasanth/Lymph Denies easy bruising Aller/Immun Denies itchy eyes, Denies seasonal rhinorrhea and Denies wheezing Physical Exam Vital Signs: Last Vital Signs Pulse 84 10/31/23 10:56 BP 127/67 10/31/23 10:56 Pulse Ox 99 10/31/23 10:56 Oxygen Delivery Method Room Air 10/31/23 10:56 BMI result Body Mass Index 27.2 Const General: no acute distress and alert Nutritional Appearance: not obese Orientation/consciousness: Other orientation findings ( oriented) HEENT Head: Yes atraumatic Eyes General: appearance normal, both eyes and all related structures Sclerae: sclerae normal EOM: EOMs intact bilaterally Neck Neck: Yes supple Lymphatic: no lymphadenopathy noted Resp Effort & Inspection: normal respiratory effort and no use of accessory muscles Auscultation: clear to auscultation bilaterally Cardio Rate: regular rate Rhythm: regular rhythm Heart sounds: no gallops, no murmurs and no rubs Skin General skin exam: other ( warm) Extrem General: No clubbing, No cyanosis and No edema Assessment & Plan Assessment & Plan (1) COPD (chronic obstructive pulmonary disease): Code(s): J44.9 - Chronic obstructive pulmonary disease, unspecified Plan: Well controlled on current regimen of Anoro and albuterol MDI. Continue current regimen. (2) MARU on CPAP: Code(s): G47.33 - Obstructive sleep apnea (adult) (pediatric); Z99.89 - Dependence on other enabling machines and devices Plan: Underlying mild obstructive sleep apnea. CPAP is ordered. Patient has not received it yet (3) Personal history of nicotine dependence: Code(s): Z87.891 - Personal history of nicotine dependence Plan: Continue with lung cancer screening CT chest, next in November of 2023. Orders: Orders CT lung screening 12/01/23 Z87.891 - Personal history of nicotine dependence Coding Level of Care Code Est Pt Level 4 (92723) Diagnoses COPD (chronic obstructive pulmonary disease) J44.9 MARU on CPAP G47.33; Z99.89 Personal history of nicotine dependence Z87.891
== END 2023-10-31 11:11 | disposition home or self-care (01) ==
PROVIDERS: PCP Internal Medicine; Visit Provider Internal Medicine Pulmonary Disease
DX: J44.9 Chronic obstructive pulmonary disease, unspecified (principal); G47.33 Obstructive sleep apnea (adult) (pediatric); Z99.89 Dependence on other enabling machines and devices; Z87.891 Personal history of nicotine dependence
CPT/HCPCS: 99214

== ENCOUNTER → 2023-10-31 10:55 | Outpatient (BNVA) | payer OTHER, SELFPAY | PROVIDERS: PCP Internal Medicine; Visit Provider Internal Medicine Pulmonary Disease | DX: J44.9 Chronic obstructive pulmonary disease, unspecified (principal); G47.33 Obstructive sleep apnea (adult) (pediatric); Z87.891 Personal history of nicotine dependence; Z99.89 Dependence on other enabling machines and devices | CPT/HCPCS: 99212 ==

== ENCOUNTER 2023-12-18 10:04 | Outpatient (REF) | payer OTHER, SELFPAY ==
--- NOTE | ~2023-12-18 | CT_ITS ---
EXAMINATION: CT CHEST SCREENING CLINICAL INFORMATION: Personal history of nicotine dependence. The patient is a current smoker with a 55 pack-year history of smoking. COMPARISON: X-ray chest 10/18/2023. CT chest 12/28/2022. TECHNIQUE: Multidetector volumetric CT imaging of the chest is performed on a Siemens SOMATOM Definition scanner without contrast using low dose technique. Additional 2D coronal and sagittal reformatted images and axial 3D maximum intensity projection (MIP) images are generated on the CT workstation. This CT examination was performed using dose optimization techniques as appropriate, variously including the following: *Automated exposure control *Adjustment of mA and/or kV according to patient size (this includes techniques or standardized protocols for targeted exams where dose is matched to indication/reason for exam; i.e. extremities or head) *Use of iterative reconstruction technique DLP: 53 mGy-cm FINDINGS: LUNGS: Mild emphysematous change is seen along with bronchial thickening. PULMONARY NODULES: Right upper lobe posterior atelectasis improved with possible remaining 5 mm pleural-based nodule (5:126). 2 mm right lower lobe nodule unchanged (5:356 compare prior 5:434). 5 mm pleural-based right lower lobe nodule unchanged (5:355 compare prior 5:441). Unchanged 5 mm ground-glass nodule right middle lobe beneath the minor fissure (8:72 compare prior 7:80). A few other small nodules are present as well and unchanged. There is no new, increasing sized or suspicious nodule present. MEDIASTINUM: The mediastinum is normal. CORONARY ARTERY CALCIFICATION: Moderate. PLEURA: There is no pleural effusion. No pleural mass or thickening. AXILLA: No lymphadenopathy. UPPER ABDOMEN: Unremarkable. OSSEOUS STRUCTURES: Status post median sternotomy. Mild degenerative changes in the spine. No bony destructive lesions. CT/CT lung screening IMPRESSION: Unremarkable examination. ASSESSMENT: Lung-RADS category 2: Benign RECOMMENDATION: Routine annual low-dose CT screening in 12 months.
== END 2023-12-18 10:05 | disposition home or self-care (01) ==
LOC: HO.CT 10:04
PROVIDERS: PCP Internal Medicine; Visit Provider Internal Medicine Pulmonary Disease
DX: Z12.2 Encounter for screening for malignant neoplasm of respiratory organs (principal); Z87.891 Personal history of nicotine dependence
CPT/HCPCS: 71271

== ENCOUNTER 2024-01-03 14:27 | Outpatient (REF) | payer OTHER, SELFPAY ==
[2024-01-03 18:47] LABS: B Type Natriuretic Peptide 93 pg/mL (<100)
[2024-01-03 18:53] LABS: Alanine Aminotransferase 13 U/L (0-40); Albumin Level 4.1 g/dL (3.5-5.0); Alkaline Phosphatase 106 U/L (39-117); Anion Gap 16 (12-20); Aspartate Amino Transferase 25 U/L (5-37); Bilirubin Total 0.5 mg/dL (0.0-1.0); Blood Urea Nitrogen 16 mg/dL (9-16); Calcium 10.3 mg/dL (8.4-10.2); Carbon Dioxide 22 mmol/L (22-29); Chloride 110 mmol/L (96-108); Estimated Glomerular Filt Rate 60; Glucose Random 98 mg/dL (60-115); Potassium 5.1 mmol/L (3.3-5.1); Sodium 143 mmol/L (135-145); Total Protein 7.7 g/dL (6.5-8.0); Troponin-I High Sensitivity < 2.7 ng/L (<3.5-35.0)
== END 2024-01-03 14:28 | disposition home or self-care (01) ==
LOC: HO.LAB 14:27
PROVIDERS: PCP Internal Medicine; Visit Provider Nurse Practitioner Family
DX: R06.02 Shortness of breath (principal)
CPT/HCPCS: 36415; 80053; 83880; 84484; 93005; 99212

== ENCOUNTER 2024-01-03 14:27 | Outpatient (AMB) | payer OTHER, SELFPAY ==
[2024-01-03 14:57] VITALS: BP 120/62; PULSE 64; BMI 27.5
--- NOTE | 2024-01-03 14:57 | A.OFFVIS_ITS ---
Vital Signs 01/03/24 14:57 Height 5 ft 6 in Weight 170 lb 3.15 oz BMI 27.5 BP 120/62 Blood Pressure Location Lt brachial Position Sitting Pulse 64 Pulse Source Monitor Intake Visit Reasons: 6 mth f/up [employer] Required: No Allergies Penicillins Allergy (Mild, Verified 01/03/24 15:05) RASH ciprofloxacin [From Cipro] Allergy (Unknown, Verified 01/03/24 15:05) RASH Medication List - Last Reconciled 01/03/24 by HUNTER Christensen acarbose 50 mg PO BID acetaminophen ER 650 mg PO Q8H albuterol sulfate 90 mcg/actuation (Ventolin HFA) 2 puffs inhalation Q6H PRN amlodipine 2.5 mg PO DAILY 90 days Anoro Ellipta 62.5-25 mcg/actuation (umeclidinium-vilanterol) 1 inh inhalation DAILY 30 days NS aspirin (Adult Low Dose Aspirin) 81 mg PO DAILY atorvastatin 80 mg PO DAILY blood sugar diagnostic (FreeStyle Lite Strips) As directed clobetasol 0.05% 1 applic topical BID clonazepam 1 mg PO DAILY cyclobenzaprine 5 mg PO TID PRN cyclobenzaprine 10 mg PO TID PRN diclofenac sodium 1% 1 ea topical BID docusate sodium (Stool Softener) 100 mg PO BID doxycycline hyclate 100 mg PO Q12H 7 days dulaglutide (Trulicity) 1 ea subcut QWEEK ezetimibe 10 mg PO DAILY halobetasol propionate 0.05% appl topical ibuprofen 800 mg PO Q8H PRN insulin glargine (Lantus Solostar U-100 Insulin) 50 units subcut QPM isosorbide mononitrate ER 120 mg PO QAM lancets (FreeStyle Lancets) As directed loratadine 10 mg PO DAILY losartan 25 mg PO DAILY mesalamine ER 1.5 grams (4 x 0.375 gram) PO QAM metoprolol tartrate 50 mg PO BID multivitamin (One Daily Multivitamin tablet) 1 tab PO DAILY naloxone 4 mg/actuation 0 sprays intranasal nebulizer and compressor As directed nitroglycerin 0.4 mg sublingual Q5M pantoprazole 40 mg PO DAILY bosqwobvitiav-LI-lmmwhduxsvl 2.5-5-50 mg/5 mL (Robitussin Cough and Cold CF) 20 mL PO Q4H PRN prednisone 40 mg (2 x 20 mg) PO DAILY 5 days psyllium husk (aspartame) 3.4 gram (Metamucil Fiber Singles) 3.4 grams PO DAILY quetiapine 0 mg PO ranolazine ER 1,000 mg PO BID 90 days sennosides (senna) 8.6 mg PO BEDTIME simethicone 180 mg PO BID PRN theophylline ER 400 mg PO DAILY HPI HPI 6 mth f/up: Details: Elio is a 68-year-old male with past medical history of hypertension, hyperlipidemia, diabetes, smoking, coronary artery disease status post 3 vessel coronary artery bypass grafting 09/2017 with recurrent chest discomfort, occluded SVG to RCA then with RCA stenting early 2019. Fall 2019 he reported shortness of breath and recurrent chest discomfort and had cardiac catheterization 04/2020 with angioplasty of severe in stent restenosis of RCA.? He did feel better for 2 months then started again with chest discomfort.? He has been on triple antianginal agents. He underwent repeat cardiac cath 12/28/20 showing ISR of RCA mid and distal stents and Nathaniel placed.? Since that time he has had stable angina when walking up hills. Today he reports that he has been having issues with bronchitis for the last few weeks. He is coughing and has chest congestion. He denies having fevers. He denies shortness of breath at rest but states he did feel short of breath walking here to this office. It took him 45 minutes when it would normally take him 20 minutes. He continues to walk frequently. He denies having orthopnea or edema. He will get chest discomfort at times when he walks up inclines. He does not get it every time he walks up hills. He will take nitroglycerin sublingual as needed. Since his last visit in May he recalls taking it 2-3 times. The majority of the time if he gets chest discomfort it will go away with rest. He still walks frequently and long distances around the city. He has not had chest discomfort with rest. No presyncope, syncope, falls. He says he is taking his meds as directed. He has multiple medications and would like some stopped if able. He also continues to smoke but he uses it for anxiety reduction. He is very talkative during this visit which is typical for him. [facility] Medical History Abnormal CT scan, gastrointestinal tract Memory difficulties On anticoagulant therapy On beta russ at home Angina of effort HLD (hyperlipidemia) HTN (hypertension) COPD (chronic obstructive pulmonary disease) Arthritis Diabetes mellitus, type 2 Coronary artery disease Dizziness Peripheral vascular disease Surgical History Hx of colonoscopy S/P cardiac catheterization (~12/2020) S/P cardiac cath (~04/2020) Stented coronary artery S/P cardiac cath (~08/2019) S/P CABG x 3 (~09/2018) H/O coronary artery bypass surgery Social History Household Members: Children Housing: House Alcohol intake: current Alcohol intake frequency: holidays/special occasions only Patient Tobacco Use Status: Current everyday Tobacco user Tobacco use type: Cigarette Cigarette Packs Per Day: 1 Cigarettes Per Day: 8 Advance Directives Date on File: 04/24/22 service: No Current occupational status: disabled Review of Systems Const All systems reviewed & are unremarkable except as noted in HPI and below ENT Denies dizziness Card Details: Cough and congestion for the last week Denies chest pain at rest, Reports chest pain with activity, Denies rapid heart rate, Denies pedal edema, Denies edema, Denies leg edema, Denies lightheadedness, Denies palpitations, Denies dyspnea, Reports dyspnea on exertion and Denies orthopnea Resp Denies cough, Denies dyspnea and Reports dyspnea on exertion GI Denies hematochezia and Denies change in stool character Musc Denies abnormal gait, Denies limited range of motion, Denies muscle cramps, Denies muscle weakness, Denies numbness, Denies radiating pain into limb, Denies stiffness and Denies tingling Neuro Denies abnormal gait, Denies dizziness, Denies numbness and Denies tingling Endo Denies palpitations Physical Exam Vital Signs: Last Vital Signs Pulse 64 01/03/24 14:57 BP 120/62 01/03/24 14:57 BMI result Body Mass Index 27.5 Const Other: hyperactive General: cooperative, comfortable and no acute distress Orientation/consciousness: patient oriented x3 Neck Neck: Yes normal visual inspection Resp Effort & Inspection: normal respiratory effort Auscultation: clear to auscultation bilaterally, no crackles, no rales, rhonchi (Scattered throughout lung love) and wheezes (Expiratory) Cardio Jugular venous distension: no JVD Rate: regular rate Rhythm: regular rhythm Heart sounds: S1 normal heart sound present, S2 normal heart sound present, no murmurs and no rubs Neuro General: patient oriented x3 Extrem General: Yes normal to inspection Psych Appearance: grossly normal Mental Status: mental status grossly normal Speech and movement: Normal speech and movement present Office Procedures EKG Details: Today, read by me, normal sinus rhythm with sinus arrhythmia, T-wave abnormality inferior lateral leads, has been seen on prior EKG in 2021 as well. Different from last EKG, rate 64. [id number], Complete Assessment & Plan Assessment & Plan (1) Angina of effort: Code(s): I20.8 - Other forms of angina pectoris Category: Medical Plan: Hx CAD, prior CABG, known occluded SVG graft to RCA, PCI to RCA with last c ardiac cath on 12/28/20 showing severe ISR to mid and distal RCA stents and JONNY's were placed. ALEMAN to LAD was patent, known occlusion of OM and RCA graphs. He continuedsto reports mild stable angina, brought on by walking up hills. He had a nuclear stress test on 06/30/2022 showing basal inferior infarct with minimal ischemia, EF 61%. An echocardiogram was done 06/26/2022 showing EF 60%, basal inferior and inferior lateral akinetic, severe decrease in the RV systolic function. No change from prior echo 11/24/2020. His antianginals have been titrated up for reports of chest discomfort. At this time he is on amlodipine 2.5 mg daily, isosorbide 120 mg daily, metoprolol 50 mg b.i.d., Ranexa 1000 mg b.i.d.. Today he is reporting increased shortness of breath, congestion and cough. Lungs on exam have expiratory wheezes and rhonchi throughout. He declines the need for urgent care or ER evaluation. He says he has updraft treatments available at home. EKG done today is showing sinus rhythm with slight T-wave inversions inferior lateral leads. This is different from last EKG however same as EKG 01/2022. Will check labs today to ensure this is not an acute finding. Labs available prior to the completion of this note showing normal BNP and normal troponin. He had been instructed to notify his PCP if his bronchitis type symptoms persist.. He is no reports of unstable angina. Will have him continue on antianginal treatment. Continue aspirin 81 mg indefinitely. Continue high-dose atorvastatin and Zetia. Can use nitroglycerin sublingual if needed for chest discomfort. Emergency care if needed for symptoms. Card f/u 3 months, sooner if needed.. (2) Shortness of breath on exertion: Code(s): R06.02 - Shortness of breath Category: Medical Plan: As above (3) S/P cardiac catheterization: Onset Date: ~12/2020 Comment: 12/28/2020 mid RCA 95% stenosis, ISR, culprit lesion, drug-eluting stent placed, distal RCA 90% stenosis, JONNY placed patent ALEMAN to LAD, known occluded graft to OM and RCA, severe AV groove circumflex stenosis which is small to moderate size territory Code(s): Z98.890 - Other specified postprocedural states Category: Surgical Plan: Most recent catheterization 12/28/2020 (4) S/P cardiac cath: Onset Date: ~08/2019 Comment: 08/2019 occluded graft to RCA, 3 JONNY to [place] RCA Code(s): Z98.890 - Other specified postprocedural states Category: Surgical Plan: As above (5) S/P cardiac cath: Onset Date: ~04/2020 Comment: 04/2020 severe ISR RCA heavily calcified, angioplasty, not able to intervene further, ALEMAN patent Code(s): Z98.890 - Other specified postprocedural states Category: Surgical Plan: As above (6) S/P CABG x 3: Onset Date: ~09/2018 Comment: ALEMAN to LAD, SVG to Ramus and RPDA Code(s): Z95.1 - Presence of aortocoronary bypass graft Category: Surgical Plan: As above (7) Coronary artery disease: Comment: Foll'd by Dr. Gaytan Code(s): I25.10 - Atherosclerotic heart disease of [place] coronary artery without angina pectoris Category: Medical Plan: As above (8) HTN (hypertension): Code(s): I10 - Essential (primary) hypertension Category: Medical Plan: Normal range today. Medications reviewed and no changes. (9) HLD (hyperlipidemia): Code(s): E78.5 - Hyperlipidemia, unspecified Category: Medical Plan: [place] LDL goal less than 70. . He was previously on Repatha, atorvastatin and zetia. Labs done 10/14/2021 shows LDL 11. At this time he is only on high-dose atorvastatin and Zetia. Unclear what happened to Zetia. No recent lipid profile for review. Labs are followed by his PCP. Will reach out to PCP office to obtain most recent results. (10) Stented coronary artery: Code(s): Z95.5 - Presence of coronary angioplasty implant and graft Category: Surgical Plan: As above (11) Abnormal EKG: Code(s): R94.31 - Abnormal electrocardiogram [ECG] [EKG] Category: Medical Plan: T-wave inversions as noted above. Orders: Orders Troponin-I High Sensitivity 01/03/24 I20.8 - Other forms of angina pectoris, R06.02 - Shortness of breath B Type Natriuretic Peptide 01/03/24 R06.02 - Shortness of breath Comprehensive Met. Panel 01/03/24 R06.02 - Shortness of breath Coding Level of Care Code Est Pt Level 4 (69544) Diagnoses Angina of effort I20.8 Shortness of breath on exertion R06.02 S/P cardiac catheterization Z98.890 S/P CABG x 3 Z95.1 Coronary artery disease I25.10 HTN (hypertension) I10 HLD (hyperlipidemia) E78.5 Stented coronary artery Z95.5 Abnormal EKG R94.31 CPT Codes EKG - CPT: 12254-[id number], Complete ([id number]) Time Spent (min) 36
== END 2024-01-03 15:30 | disposition home or self-care (01) ==
PROVIDERS: PCP Internal Medicine; Visit Provider Nurse Practitioner Family
DX: I20.89 Other forms of angina pectoris (principal); R06.02 Shortness of breath; Z98.890 Other specified postprocedural states; Z95.1 Presence of aortocoronary bypass graft; I25.10 Atherosclerotic heart disease of native coronary artery without angina pectoris; I10 Essential (primary) hypertension; E78.5 Hyperlipidemia, unspecified; Z95.5 Presence of coronary angioplasty implant and graft; R94.31 Abnormal electrocardiogram [ECG] [EKG]
CPT/HCPCS: 93010; 99214

== ENCOUNTER 2024-02-20 10:29 | Outpatient (AMB) | payer OTHER, SELFPAY ==
[2024-02-20 10:33] VITALS: BP 124/62; PULSE 104; O2SAT 94; BMI 26.9
--- NOTE | 2024-02-20 10:33 | A.OFFVIS_ITS ---
Vital Signs 02/20/24 10:33 Height 5 ft 6 in Weight 166 lb 7.184 oz BMI 26.9 BP 124/62 Blood Pressure Location Lt brachial Position Sitting Pulse 104 H Pulse Source Doppler Pulse Oximetry (%) 94 Oxygen Delivery Method Room Air Intake Visit Reasons: copd Allergies Penicillins Allergy (Mild, Verified 02/20/24 10:37) RASH ciprofloxacin [From Cipro] Allergy (Unknown, Verified 02/20/24 10:37) RASH HPI HPI copd: Details: 68-year-old gentleman, active 50+ pack-year smoker, followed for underlying moderate COPD , MARU, and pulmonary nodules.? His CT chest showed stable pulmonary nodules.? Patient continues on Anoro with good control of his underlying symptoms. Patient is pending received his CPAP machine. Today his complain of acute exacerbation symptomatic with wheezing and productive cough. [facility] Medical History Abnormal CT scan, gastrointestinal tract Memory difficulties On anticoagulant therapy On beta russ at home Angina of effort HLD (hyperlipidemia) HTN (hypertension) COPD (chronic obstructive pulmonary disease) Arthritis Diabetes mellitus, type 2 Coronary artery disease Dizziness Peripheral vascular disease Surgical History Hx of colonoscopy S/P cardiac catheterization (~12/2020) S/P cardiac cath (~04/2020) Stented coronary artery S/P cardiac cath (~08/2019) S/P CABG x 3 (~09/2018) H/O coronary artery bypass surgery Social History Household Members: Children Housing: House Alcohol intake: current Alcohol intake frequency: holidays/special occasions only Patient Tobacco Use Status: Current everyday Tobacco user Tobacco use type: Cigarette Cigarette Packs Per Day: 1 Cigarettes Per Day: 8 Advance Directives Date on File: 04/24/22 service: No Current occupational status: disabled Review of Systems Const Denies daytime sleepiness, Denies excessive sweating, Denies fatigue, Denies fever(s), Denies lethargy, Denies malaise, Denies night sweats, Denies snoring and Denies weight loss Eyes Denies blurry vision and Denies itchy eyes ENT Denies nasal congestion, Denies post nasal drip, Denies sinus pain, Denies sinus pressure and Denies other ( Thrush) Card Denies chest pain, Denies pedal edema, Denies dyspnea, Denies orthopnea and Denies paroxysmal nocturnal dyspnea Resp Reports cough, Denies hemoptysis, Reports excessive phlegm production, Denies dyspnea, Denies snoring and Reports wheezing GI Denies abdominal pain and Denies heartburn Musc Denies myalgias, Denies arthralgias and Denies joint swelling Skin/Breast Denies rash Neuro Denies memory loss and Denies seizure-like activity Psych Denies abnormal sleep pattern, Denies anxiety and Denies memory loss Endo Denies excessive sweating, Denies fatigue and Denies heat intolerance Prasanth/Lymph Denies easy bruising Aller/Immun Denies itchy eyes, Denies seasonal rhinorrhea and Reports wheezing Physical Exam Vital Signs: Last Vital Signs Pulse 104 H 02/20/24 10:33 BP 124/62 02/20/24 10:33 Pulse Ox 94 02/20/24 10:33 Oxygen Delivery Method Room Air 02/20/24 10:33 BMI result Body Mass Index 26.9 Const General: no acute distress and alert Nutritional Appearance: not obese Orientation/consciousness: Other orientation findings ( oriented) HEENT Head: Yes atraumatic Eyes General: appearance normal, both eyes and all related structures Sclerae: sclerae normal EOM: EOMs intact bilaterally Neck Neck: Yes supple Lymphatic: no lymphadenopathy noted Resp Effort & Inspection: normal respiratory effort and no use of accessory muscles Auscultation: wheezes (Bilateral expiratory) Cardio Rate: regular rate Rhythm: regular rhythm Heart sounds: no gallops, no murmurs and no rubs Skin General skin exam: other ( warm) Extrem General: No clubbing, No cyanosis and No edema Assessment & Plan Assessment & Plan (1) COPD (chronic obstructive pulmonary disease): Code(s): J44.9 - Chronic obstructive pulmonary disease, unspecified Category: Medical Plan: Baseline controlled on Anoro, theophylline, and albuterol MDI. Continue current regimen. Now with an acute exacerbation, will treat with a course of prednisone and azithromycin. (2) Personal history of nicotine dependence: Code(s): Z87.891 - Personal history of nicotine dependence Category: Medical Plan: Results of screening CT from 12/15/2023 reviewed, no worrisome pulmonary nodules noted. Continue with yearly screening, next in November of 2024. Medications: New prednisone 40 mg (2 x 20 mg) PO DAILY 10 tabs 0RF azithromycin For 250 mg dose pack: take 500 mg today (day 1), then 250 mg for 4 days (days 2-5) PO 6 tabs 0RF Coding Level of Care Code Est Pt Level 4 (23154) Diagnoses COPD (chronic obstructive pulmonary disease) J44.9 Personal history of nicotine dependence Z87.523
== END 2024-02-20 10:55 | disposition home or self-care (01) ==
PROVIDERS: PCP Internal Medicine; Visit Provider Internal Medicine Pulmonary Disease
DX: J44.9 Chronic obstructive pulmonary disease, unspecified (principal); Z87.891 Personal history of nicotine dependence
CPT/HCPCS: 99214

== ENCOUNTER → 2024-02-20 10:29 | Outpatient (BNVA) | payer OTHER, SELFPAY | PROVIDERS: PCP Internal Medicine; Visit Provider Internal Medicine Pulmonary Disease | DX: J44.9 Chronic obstructive pulmonary disease, unspecified (principal); R91.8 Other nonspecific abnormal finding of lung field; F17.210 Nicotine dependence, cigarettes, uncomplicated; G47.33 Obstructive sleep apnea (adult) (pediatric) | CPT/HCPCS: 99212 ==

== ENCOUNTER 2024-04-01 12:46 | Outpatient (AMB) | payer OTHER, SELFPAY ==
[2024-04-01 13:01] VITALS: BP 124/62; PULSE 79; BMI 27.3
--- NOTE | 2024-04-01 13:01 | MHC.OFFVIS ---
Vital Signs 04/01/24 13:01 Height 5 ft 6 in Weight 169 lb 5.04 oz BMI 27.3 BP 124/62 Blood Pressure Location Lt brachial Position Sitting Pulse 79 Pulse Source Pulse Oximeter Intake Visit Reasons: 3 mth f/up Social Services Aide Required: No Allergies Penicillins Allergy (Mild, Verified 04/01/24 13:15) RASH ciprofloxacin [From Cipro] Allergy (Unknown, Verified 04/01/24 13:15) RASH Medication List - Last Reconciled 04/01/24 by HUNTER Christensen acarbose 50 mg PO BID acetaminophen ER 650 mg PO Q8H albuterol sulfate 90 mcg/actuation (Ventolin HFA) 2 puffs inhalation Q6H PRN amlodipine 2.5 mg PO DAILY 90 days Anoro Ellipta 62.5-25 mcg/actuation (umeclidinium-vilanterol) 1 inh inhalation DAILY 30 days NS aspirin (Adult Low Dose Aspirin) 81 mg PO DAILY atorvastatin 80 mg PO DAILY azithromycin For 250 mg dose pack: take 500 mg today (day 1), then 250 mg for 4 days (days 2-5) PO blood sugar diagnostic (FreeStyle Lite Strips) As directed bupropion HCl XL 150 mg PO DAILY clobetasol 0.05% 1 applic topical BID clonazepam 1 mg PO DAILY cyclobenzaprine 5 mg PO TID PRN cyclobenzaprine 10 mg PO TID PRN diclofenac sodium 1% 1 ea topical BID docusate sodium (Stool Softener) 100 mg PO BID doxycycline monohydrate 100 mg PO BID dulaglutide (Trulicity) 1 ea subcut QWEEK ezetimibe 10 mg PO DAILY halobetasol propionate 0.05% appl topical ibuprofen 800 mg PO Q8H PRN insulin glargine (Lantus Solostar U-100 Insulin) 50 units subcut QPM ipratropium-albuterol 0.5 mg-3 mg(2.5 mg base)/3 mL 3 mL inhalation Q4-6H PRN isosorbide mononitrate ER 120 mg PO QAM lancets (FreeStyle Lancets) As directed loratadine 10 mg PO DAILY losartan 25 mg PO DAILY mesalamine ER 1.5 grams (4 x 0.375 gram) PO QAM metoprolol tartrate 50 mg PO BID multivitamin (One Daily Multivitamin tablet) 1 tab PO DAILY multivitamin with folic acid 400 mcg (Daily-Tiana (with folic acid)) tabs PO naloxone 4 mg/actuation 0 sprays intranasal nebulizer and compressor As directed nitroglycerin 0.4 mg sublingual Q5M pantoprazole 40 mg PO DAILY [id number] 2.5-5-50 mg/5 mL (Robitussin Cough and Cold CF) 20 mL PO Q4H PRN prednisone 40 mg (2 x 20 mg) PO DAILY psyllium husk (aspartame) 3.4 gram (Metamucil Fiber Singles) 3.4 grams PO DAILY quetiapine 25 mg PO TID ranolazine ER 1,000 mg PO BID 90 days sennosides (senna) 8.6 mg PO BEDTIME simethicone 180 mg PO BID PRN theophylline ER 400 mg PO DAILY HPI HPI 3 mth f/up: Details: Elio is a 68-year-old male with past medical history of hypertension, hyperlipidemia, diabetes, smoking, coronary artery disease status post 3 vessel coronary artery bypass grafting 09/2017 with recurrent chest discomfort, occluded SVG to RCA then with RCA stenting early 2019. Fall 2019 he reported shortness of breath and recurrent chest discomfort and had cardiac catheterization 04/2020 with angioplasty of severe in stent restenosis of RCA.? He did feel better for 2 months then started again with chest discomfort.? He has been on triple antianginal agents. He underwent repeat cardiac cath 12/28/20 showing ISR of RCA mid and distal stents and Nathaniel placed.? Since that time he has had stable angina when walking up hills. Today he reports that he has been been doing generally well. He still has issues with anterior chest discomfort at times when walking up hills. If he rests his symptom normally goes away. He does have nitroglycerin sublingual that he can take if needed. He has used it about 3 times since last May. He still walks frequently and long distances around the city. He does not get chest discomfort with rest. No presyncope, syncope, falls. He has previously reported that he takes all his meds as directed. He now tells me that he has not been honest with us. He is not taking the meds in the med box consistently. He says they give him a feeling headache, lightheadedness and at times abdominal discomfort. He has found that if he eats food in the morning and then takes his meds is able to tolerate them better. He does not consistently take the evening medications. Overall he says he takes too many meds and would like some of them stopped. His med box does not include a picture of what the tablets are, only the names. He is not sure of which ones make him feel unwell. He says he knows which pill is the daily aspirin and he has been removing that one. He also continues to smoke but he uses it for anxiety reduction. He has no plans to stop. [facility] Medical History Abnormal CT scan, gastrointestinal tract Memory difficulties On anticoagulant therapy On beta russ at home Angina of effort HLD (hyperlipidemia) HTN (hypertension) COPD (chronic obstructive pulmonary disease) Arthritis Diabetes mellitus, type 2 Coronary artery disease Dizziness Peripheral vascular disease Surgical History Hx of colonoscopy S/P cardiac catheterization (~12/2020) S/P cardiac cath (~04/2020) Stented coronary artery S/P cardiac cath (~08/2019) S/P CABG x 3 (~09/2018) H/O coronary artery bypass surgery Social History Household Members: Children Housing: House Alcohol intake: current Alcohol intake frequency: holidays/special occasions only Patient Tobacco Use Status: Current everyday Tobacco user Tobacco use type: Cigarette Cigarette Packs Per Day: 1 Cigarettes Per Day: 8 Advance Directives Date on File: 04/24/22 service: No Current occupational status: disabled Review of Systems Const All systems reviewed & are unremarkable except as noted in HPI and below ENT Details: headache and lightheaded at times Reports dizziness Card Denies chest pain, Denies chest pain at rest, Reports chest pain with activity (at times when he walks), Denies rapid heart rate, Denies pedal edema, Denies edema, Denies leg edema, Denies lightheadedness, Denies palpitations, Reports dyspnea, Denies dyspnea on exertion and Denies orthopnea Resp Denies cough, Reports dyspnea and Denies dyspnea on exertion GI Details: pills upset his stomach Denies hematochezia and Denies change in stool character Musc Denies abnormal gait, Denies limited range of motion, Denies muscle cramps, Denies muscle weakness, Denies numbness, Denies radiating pain into limb, Denies stiffness and Denies tingling Neuro Denies abnormal gait, Reports dizziness, Denies numbness and Denies tingling Endo Denies palpitations Physical Exam Vital Signs: Last Vital Signs Pulse 79 04/01/24 13:01 BP 124/62 04/01/24 13:01 BMI result Body Mass Index 27.3 Const General: no acute distress and alert Nutritional Appearance: not obese Orientation/consciousness: Other orientation findings ( oriented) HEENT Head: Yes atraumatic Eyes General: appearance normal, both eyes and all related structures Sclerae: sclerae normal EOM: EOMs intact bilaterally Neck Neck: Yes supple Lymphatic: no lymphadenopathy noted Resp Effort & Inspection: normal respiratory effort and no use of accessory muscles Auscultation: wheezes (Bilateral expiratory) Cardio Rate: regular rate Rhythm: regular rhythm Heart sounds: no gallops, no murmurs and no rubs Skin General skin exam: other ( warm) Extrem General: No clubbing, No cyanosis and No edema Assessment & Plan Assessment & Plan (1) Angina of effort: Code(s): I20.8 - Other forms of angina pectoris Category: Medical Plan: Hx CAD, prior CABG, known occluded SVG graft to RCA, PCI to RCA with last cardiac cath on 12/28/20 showing severe ISR to mid and distal RCA stents and JONNY's were placed. ALEMAN to LAD was patent, known occlusion of OM and RCA graphs. He continues to reports mild stable angina, brought on by walking up hills. He had a nuclear stress test on 06/30/2022 showing basal inferior infarct with minimal ischemia, EF 61%. An echocardiogram was done 06/26/2022 showing EF 60%, basal inferior and inferior lateral akinetic, severe decrease in the RV systolic function. No change from prior echo 11/24/2020. His antianginals have been titrated up for reports of chest discomfort. At this time he is on amlodipine 2.5 mg daily, isosorbide 120 mg daily, metoprolol 50 mg b.i.d., Ranexa 1000 mg b.i.d.. Today he admits to not taking his meds as directed. He usually takes the morning meds but not the evening ones. He does not like the way his meds make him feel. By not taking the evening meds it seems he has been only taking metoprolol 50 mg once daily, Ranexa 1000 mg once daily and he may be missing the atorvastatin which is usually and evening med. Tells me he does recognize the aspirin tablet and has not been taking that one. Spent time reviewing the need for medication compliance. Strongly recommended that he take his evening meds as well as the a.m. ones. Thankfully his angina has been stable. Will have him continue on triple antianginal treatment. Continue aspirin 81 mg indefinitely. Continue high-dose atorvastatin and Zetia. Can use nitroglycerin sublingual if needed for chest discomfort. Emergency care if needed for symptoms. Card f/u 3 months, sooner if needed.- to rediscuss med compliance, evaluate condition. (2) Noncompliance with medication regimen: Code(s): Z91.148 - Patient's other noncompliance with medication regimen for other reason Category: Medical Plan: Patient tells me he has not been taking his evening meds for a long time. For awhile he was not taking the morning meds either. He reports side effects of lightheadedness, headache, abdominal discomfort. He has found that if he eats breakfast then takes his morning meds he does better. He says he does use the med box system but they do not give a picture of what pills are what. We called his pharmacy and they date that a list of the medications is provided but no pictures offered. Suggested he transferred his medications to [facility] where his PCP is. He says he has had issues with the pharmacy in the past and he is no longer allowed to go there. Cardiac medications reviewed. He has been taking only metoprolol 50 mg daily. Will change his metoprolol from tartrate 50 mg b.i.d. to XL 50 mg once daily. Last LDL in our system, 10/14/2021 showed LDL 11. No updated lipid profile since then. Will check with PCP to see if 1 is available. If LDL is in fact that low than may be able to stop Zetia, however if he is taking meds once daily it is possible he has not been taking the atorvastatin. Will continue all other cardiac meds at present including amlodipine, aspirin, atorvastatin, Zetia, isosorbide, losartan, metoprolol, Ranexa. Will send message to his PCP informing her that patient has not been taking meds b.i.d.. Asked that she review meds and discontinue any that are possible. Will also send referral to nurse navigator to see if they can follow-up with patient regarding med compliance and better management. (3) S/P cardiac catheterization: Onset Date: ~12/2020 Comment: 12/28/2020 mid RCA 95% stenosis, ISR, culprit lesion, drug-eluting stent placed, distal RCA 90% stenosis, JONNY placed patent ALEMAN to LAD, known occluded graft to OM and RCA, severe AV groove circumflex stenosis which is small to moderate size territory Code(s): Z98.890 - Other specified postprocedural states Category: Surgical Plan: Most recent catheterization 12/28/2020 (4) Coronary artery disease: Comment: Foll'd by Dr. Gaytan Code(s): I25.10 - Atherosclerotic heart disease of [place] coronary artery without angina pectoris Category: Medical Plan: As above (5) HTN (hypertension): Code(s): I10 - Essential (primary) hypertension Category: Medical Plan: Good at present time. Metoprolol dose being adjusted. (6) HLD (hyperlipidemia): Code(s): E78.5 - Hyperlipidemia, unspecified Category: Medical Plan: [place] LDL goal less than 70. . He was previously on Repatha, atorvastatin and zetia. Labs done 10/14/2021 shows LDL 11. At this time he is only on high-dose atorvastatin and Zetia. Unclear what happened to Repatha. No recent lipid profile for review. Labs are followed by his PCP. Will reach out to PCP office to obtain most recent results. (7) Stented coronary artery: Code(s): Z95.5 - Presence of coronary angioplasty implant and graft Category: Surgical Plan: As above (8) Abnormal EKG: Code(s): R94.31 - Abnormal electrocardiogram [ECG] [EKG] Category: Medical Plan: Mild T-wave inversions as noted on last EKG. No new symptoms and troponin was normal. Plan Time spent on chart review, documentation, interview and assessment Orders: Referrals Nurse Navigator Referral Z91.148 - Patient's other noncompliance with medication regimen for other reason Medications: New metoprolol succinate ER changing to XL 50 mg PO DAILY 30 tabs 11RF Discontinued metoprolol tartrate Discontinued Reason: Doctor's Order 50 mg PO BID 60 tabs 11RF Coding Level of Care Code Est Pt Level 4 (76541) Diagnoses Angina of effort I20.8 Noncompliance with medication regimen Z91.148 S/P cardiac catheterization Z98.890 Coronary artery disease I25.10 HTN (hypertension) I10 HLD (hyperlipidemia) E78.5 Stented coronary artery Z95.5 Abnormal EKG R94.31 Time Spent (min) 30
== END 2024-04-01 13:36 | disposition home or self-care (01) ==
PROVIDERS: PCP Internal Medicine; Visit Provider Nurse Practitioner Family
DX: I25.118 Atherosclerotic heart disease of native coronary artery with other forms of angina pectoris (principal); Z95.5 Presence of coronary angioplasty implant and graft; Z91.148 Patient's other noncompliance with medication regimen for other reason; Z98.890 Other specified postprocedural states; I10 Essential (primary) hypertension; E78.5 Hyperlipidemia, unspecified; R94.31 Abnormal electrocardiogram [ECG] [EKG]
CPT/HCPCS: 99214

== ENCOUNTER → 2024-04-01 12:46 | Outpatient (BNVA) | payer OTHER, SELFPAY | PROVIDERS: PCP Internal Medicine; Visit Provider Nurse Practitioner Family | DX: I25.118 Atherosclerotic heart disease of native coronary artery with other forms of angina pectoris (principal); R94.31 Abnormal electrocardiogram [ECG] [EKG]; I10 Essential (primary) hypertension; E78.5 Hyperlipidemia, unspecified; Z95.5 Presence of coronary angioplasty implant and graft; Z91.148 Patient's other noncompliance with medication regimen for other reason; Z98.890 Other specified postprocedural states | CPT/HCPCS: 99212 ==

== ENCOUNTER 2024-04-14 12:17 | Outpatient (REF) | payer OTHER, SELFPAY ==
[2024-04-14 13:40] LABS: Cholesterol 230 mg/dL (<200); HDL Cholesterol 41 mg/dL (>40); LDL Cholesterol Calculated 158 mg/dL (<100); LDL Cholesterol Calculated 159 mg/dL (<100); Triglycerides 154 mg/dL (<150); Triglycerides 156 mg/dL (<150)
[2024-04-14 14:01] LABS: PSA,Total (Free>4and<10) 0.94 ng/mL (0.00-4.00)
[2024-04-14 14:46] LABS: Reflex LDLD? No
== END 2024-04-14 12:18 | disposition home or self-care (01) ==
LOC: HO.HHCL 12:17
PROVIDERS: Internal Medicine Cardiovascular Disease; Visit Provider Internal Medicine
DX: I25.10 Atherosclerotic heart disease of native coronary artery without angina pectoris (principal); E11.69 Type 2 diabetes mellitus with other specified complication; Z79.4 Long term (current) use of insulin; N40.1 Benign prostatic hyperplasia with lower urinary tract symptoms; R35.1 Nocturia; Z12.5 Encounter for screening for malignant neoplasm of prostate
CPT/HCPCS: 36415; 80061; 84153

== ENCOUNTER 2024-06-11 10:22 | Outpatient (AMB) | payer OTHER, SELFPAY ==
--- NOTE | 2024-06-11 10:40 | A.OFFVIS_ITS ---
Intake Visit Reasons: BPH with nocturia Intake Note: New Patient presents for initial visit for nocturia Urology Medications: none Blood Thinner: aspirin PVR: 69ml's Drywall Hanger Required: No Accompanied by: Self / Same As Patient Allergies Penicillins Allergy (Mild, Verified 06/11/24 11:37) RASH ciprofloxacin [From Cipro] Allergy (Unknown, Verified 06/11/24 11:37) RASH Medication List - Last Reconciled 06/11/24 by KISHORE Murray acetaminophen ER 650 mg PO Q8H albuterol sulfate 90 mcg/actuation (Ventolin HFA) 2 puffs inhalation Q6H PRN amlodipine 2.5 mg PO DAILY 90 days Anoro Ellipta 62.5-25 mcg/actuation (umeclidinium-vilanterol) 1 ea PO DAILY NS aspirin (Adult Low Dose Aspirin) 81 mg PO DAILY atorvastatin 80 mg PO DAILY blood sugar diagnostic (FreeStyle Lite Strips) As directed bupropion HCl XL 150 mg PO DAILY clonazepam 1 mg PO DAILY docusate sodium 100 mg PO BID dulaglutide (Trulicity) 1 ea subcut QWEEK ezetimibe 10 mg PO DAILY insulin glargine (Lantus Solostar U-100 Insulin) 50 units subcut QPM ipratropium-albuterol 0.5 mg-3 mg(2.5 mg base)/3 mL 3 mL inhalation Q4-6H PRN isosorbide mononitrate ER 120 mg PO QAM lancets (FreeStyle Lancets) As directed loratadine 10 mg PO DAILY losartan 25 mg PO DAILY mesalamine ER 1.5 grams (4 x 0.375 gram) PO QAM metoprolol succinate ER 50 mg PO DAILY multivitamin with folic acid 400 mcg (Daily-Tiana (with folic acid)) tabs PO nebulizer and compressor As directed quetiapine 25 mg PO TID ranolazine ER 1,000 mg PO BID 90 days tamsulosin mg PO DAILY theophylline ER 400 mg PO DAILY HPI Comments Details: Elio is a 69-year-old male patient of Dr.?Barciona Cintron. He has a past medical history of memory difficulties, hyperlipidemia, hypertension, COPD, arthritis, type 2 diabetes, coronary artery disease, and peripheral vascular disease. He presents to the office today as a new patient for nocturia. In discussion with the patient today reports symptoms have been present for months. He reports following up with his PCP at which time he was started on Flomax and recommendation was made for urology referral for further assessment evaluation. Reports having trialed Flomax for a proximally 6 weeks and did not find any improvement in episodes of nocturia. Reports episodes of nocturia up to 6 times per night however denies any bothersome urinary issues throughout the day. When asked he does report a longstanding history of sleep apnea however has been noncompliant with CPAP machine for the last 18 months. He reports he will be following up with pulmonology within the next 1-2 months and will be restarting therapy. We discussed at length correlation of sleep apnea with nocturia. In office urinalysis results reviewed with the patient today. In review of patient's chart it appears a PSA was ordered and obtained. These results reviewed with the patient today. 04/19 PSA 0.9. When asked he denies urinary urgency, urinary frequency, incontinence, hematuria, dysuria, foul smelling urine, changes to urinary stream, flank pain, fever, and or chills . He does report a longstanding history of nicotine dependence. We discussed importance of limiting/quitting for overall health and well-being. He otherwise offers no other issues or concerns at this time. PVR 69 mL PFSH Medical History Abnormal CT scan, gastrointestinal tract Memory difficulties On anticoagulant therapy On beta russ at home Angina of effort HLD (hyperlipidemia) HTN (hypertension) COPD (chronic obstructive pulmonary disease) Arthritis Diabetes mellitus, type 2 Coronary artery disease Dizziness Peripheral vascular disease Surgical History Hx of colonoscopy S/P cardiac catheterization (~12/2020) S/P cardiac cath (~04/2020) Stented coronary artery S/P cardiac cath (~08/2019) S/P CABG x 3 (~09/2018) H/O coronary artery bypass surgery Social History Household Members: Children Housing: House Alcohol intake: current Alcohol intake frequency: holidays/special occasions only Patient Tobacco Use Status: Current everyday Tobacco user Tobacco use type: Cigarette Cigarette Packs Per Day: 1 Cigarettes Per Day: 8 Advance Directives Date on File: 04/24/22 service: No Current occupational status: disabled Review of Systems Eyes Reports no additional complaints ENT Reports no additional complaints and Reports as per HPI Card Reports as per HPI Resp Reports as per HPI GI Reports no additional complaints Reports as per HPI Musc Reports as per HPI Neuro Reports as per HPI Psych Reports as per HPI Endo Reports no additional complaints Prasanth/Lymph Reports no additional complaints Aller/Immun Reports no additional complaints Physical Exam Const General: cooperative, healthy appearing, comfortable, no acute distress, well developed, alert and awake Orientation/consciousness: patient oriented x3 HEENT Head: Yes normal to inspection, Yes normocephalic and Yes atraumatic Ears: hearing grossly normal bilaterally Eyes General: appearance normal, both eyes and all related structures Neck Neck: Yes normal visual inspection and Yes trachea midline Chest Chest palpation & inspection: normal inspection of the chest Resp Effort & Inspection: normal respiratory effort and able to speak in complete sentences Cardio Rate: regular rate GI Inspection: Yes normal to inspection General: Yes no CVA tenderness Back/Spine/Pelvis Back: no CVA tenderness Skin General skin exam: no rashes or lesions noted Neuro General: patient oriented x3 Extrem General: Yes normal to inspection Psych Appearance: grossly normal and well kempt Mental Status: mental status grossly normal Speech and movement: Normal speech and movement present and Clear speech present Affect: normal affect Attitude: cooperative Thought process: Normal thought process present Thought content: Normal thought content present Insight: Fair insight present (Psych) Judgement: Fair judgement present (Psych) Office Procedures Post Void Residual Post Residual Void Post Void Residual (PVR): 69 [id number] Void Residual by ultrasound Results AMB Urinalysis, Automated UA Leukoctes 0 Shelia/uL Last Edit by Rosie Randall on 06/11/24 11:16 UA Nitrite Last Edit by Rosie Randall on 06/11/24 11:16 UA Urobilinogen 0.2 mg/dL Last Edit by Rosie Moseleyemma on 06/11/24 11:16 UA Protein 0 mg/dL Last Edit by Rosie Loreleiemma on 06/11/24 11:16 UA pH 6.0 Last Edit by Isaiahivania Loreleiemma on 06/11/24 11:16 UA Blood 0 Paulino/uL Last Edit by Rosie Loreleiemam on 06/11/24 11:16 UA Specific [place] 1.020 Last Edit by Isaiahivania Loreleiemma on 06/11/24 11:16 UA Ketone Negative Last Edit by Rosie Loreleiemma on 06/11/24 11:16 UA Bilirubin 0 mg/dL Last Edit by Rosie Loreleiemma on 06/11/24 11:16 UA Glucose 0 mg/dL Last Edit by Rosie Randall on 06/11/24 11:16 Results Reviewed Results Reviewed: Laboratory Last Values Urine pH (Auto) 6.0 06/11/24 10:47 Specific [place] (Auto) 1.020 06/11/24 10:47 Urine Protein (Auto) 0 mg/dL 06/11/24 10:47 Glucose (UA)(Auto) 0 mg/dL 06/11/24 10:47 Urine Ketones (Auto) Negative 06/11/24 10:47 Urine Blood (Auto) 0 Paulino/uL 06/11/24 10:47 Urine Bilirubin (Auto) 0 mg/dL 06/11/24 10:47 Urine Urobilinogen (Auto) 0.2 mg/dL 06/11/24 10:47 Leukocyte Esterase (Auto) 0 Shelia/uL 06/11/24 10:47 Assessment & Plan Assessment & Plan (1) Nocturia: Code(s): R35.1 - Nocturia Category: Medical Plan In office urinalysis results reviewed with the patient today; as noted above. PVR 69 mL We discussed at length correlation of sleep apnea with nocturia. Will obtain retroperitoneal ultrasound for further assessment evaluation. Start terazosin 5 mg daily. We discussed trial of terazosin verses daily tadalafil. Discussed bladder triggers/irritants. Discussed importance of lifestyle modifications to assist with nocturia. Follow-up with pulmonology to review settings of CPAP machine for compliance. Follow-up in 1-3 months with imaging to be completed prior and PVR at next office visit; or sooner with any issues, concerns, and or questions. Orders: Orders US retroperitoneal comp Today R35.1 - Nocturia AMB Urinalysis Automated Today Z13.9 - Encounter for screening, unspecified AMB Post Void Residual by ultrasound Today Z13.9 - Encounter for screening, unspecified Medications: New terazosin 5 mg PO BEDTIME 90 days 90 caps 1RF N40.1 - Benign prostatic hyperp lasia with lower urinary tract symptoms, R35.0 - Frequency of micturition Patient Instructions: The patient had an opportunity to ask questions regarding the treatment plan. All questions were answered. Physical exam, labs, and imaging were discussed and reviewed in detail. As well as risks, benefits, and discussion of treatment choices. No major barriers to understanding were identified. The patient expressed understanding and agreement with the above treatment plan. The patient was made aware they should contact our office by phone for worsening of their current condition, the appearance of new symptoms, or with any questions or concerns. Compliance is encouraged with any medications and follow up testing that is ordered. It is a privilege to be allowed the opportunity to participate in? your urological care.? Again, if you have any questions or concerns If you have any questions or concerns please do not hesitate to contact me. The office is [phone]. This note is constructed using voice recognition software. While every effort has been made to ensure accuracy right of way cutter errors may have been included. Yours sincerely, KISHORE Murray Coding Level of Care Code New Pt Level 4 (31452) Diagnoses Nocturia R35.1 CPT Codes Post Residual Void - PVR CPT Code: 10289-[id number] Void Residual by ultrasound ([id number])
== END 2024-06-11 11:38 | disposition home or self-care (01) ==
PROVIDERS: PCP Internal Medicine; Visit Provider Nurse Practitioner Family
DX: R35.1 Nocturia (principal); Z13.9 Encounter for screening, unspecified
CPT/HCPCS: 99204

== ENCOUNTER → 2024-06-11 10:22 | Outpatient (BNVA) | payer OTHER, SELFPAY | PROVIDERS: PCP Internal Medicine; Visit Provider Nurse Practitioner Family | DX: N40.1 Benign prostatic hyperplasia with lower urinary tract symptoms (principal); R35.1 Nocturia | CPT/HCPCS: 51798; 81003; 99202 ==

== ENCOUNTER 2024-06-25 11:03 | Outpatient (AMB) | payer OTHER, SELFPAY ==
[2024-06-25 11:17] VITALS: BP 140/78; PULSE 83; O2SAT 99; BMI 28.4
--- NOTE | 2024-06-25 11:17 | A.OFFVIS_ITS ---
Vital Signs 06/25/24 11:17 Height 5 ft 6 in Weight 176 lb BMI 28.4 BP 140/78 H Blood Pressure Location Rt brachial Position Sitting Pulse 83 Pulse Source Doppler Pulse Oximetry (%) 99 Oxygen Delivery Method Room Air Intake Visit Reasons: COPD Allergies Penicillins Allergy (Mild, Verified 06/25/24 11:21) RASH ciprofloxacin [From Cipro] Allergy (Unknown, Verified 06/25/24 11:21) RASH HPI HPI COPD: Details: 69-year-old gentleman, active 50+ pack-year smoker, followed for underlying moderate COPD , MARU, and pulmonary nodules.? His CT chest showed stable pulmonary nodules.? Patient continues on Anoro with good control of his underlying symptoms. Patient is pending received his new CPAP machine as his old one has been broken for the last 6 months (per patient). He denies acute exacerbations. [facility] Medical History Abnormal CT scan, gastrointestinal tract Memory difficulties On anticoagulant therapy On beta russ at home Angina of effort HLD (hyperlipidemia) HTN (hypertension) COPD (chronic obstructive pulmonary disease) Arthritis Diabetes mellitus, type 2 Coronary artery disease Dizziness Peripheral vascular disease Surgical History Hx of colonoscopy S/P cardiac catheterization (~12/2020) S/P cardiac cath (~04/2020) Stented coronary artery S/P cardiac cath (~08/2019) S/P CABG x 3 (~09/2018) H/O coronary artery bypass surgery Social History Household Members: Children Housing: House Alcohol intake: current Alcohol intake frequency: holidays/special occasions only Patient Tobacco Use Status: Current everyday Tobacco user Tobacco use type: Cigarette Cigarette Packs Per Day: 1 Cigarettes Per Day: 8 Advance Directives Date on File: 04/24/22 service: No Current occupational status: disabled Review of Systems Const Denies daytime sleepiness, Denies excessive sweating, Denies fatigue, Denies fever(s), Denies lethargy, Denies malaise, Denies night sweats, Denies snoring and Denies weight loss Eyes Denies blurry vision and Denies itchy eyes ENT Denies nasal congestion, Denies post nasal drip, Denies sinus pain, Denies sinus pressure and Denies other ( Thrush) Card Denies chest pain, Denies pedal edema, Denies dyspnea, Denies orthopnea and Denies paroxysmal nocturnal dyspnea Resp Denies cough, Denies hemoptysis, Denies excessive phlegm production, Denies dyspnea, Denies snoring and Denies wheezing GI Denies abdominal pain and Denies heartburn Musc Denies myalgias, Denies arthralgias and Denies joint swelling Skin/Breast Denies rash Neuro Denies memory loss and Denies seizure-like activity Psych Denies abnormal sleep pattern, Denies anxiety and Denies memory loss Endo Denies excessive sweating, Denies fatigue and Denies heat intolerance Prasanth/Lymph Denies easy bruising Aller/Immun Denies itchy eyes, Denies seasonal rhinorrhea and Denies wheezing Physical Exam Vital Signs: Last Vital Signs Pulse 83 06/25/24 11:17 BP 140/78 H 06/25/24 11:17 Pulse Ox 99 06/25/24 11:17 Oxygen Delivery Method Room Air 06/25/24 11:17 BMI result Body Mass Index 28.4 Const General: no acute distress and alert Nutritional Appearance: not obese Orientation/consciousness: Other orientation findings ( oriented) HEENT Head: Yes atraumatic Eyes General: appearance normal, both eyes and all related structures Sclerae: sclerae normal EOM: EOMs intact bilaterally Neck Neck: Yes supple Lymphatic: no lymphadenopathy noted Resp Effort & Inspection: normal respiratory effort and no use of accessory muscles Auscultation: clear to auscultation bilaterally Cardio Rate: regular rate Rhythm: regular rhythm Heart sounds: no gallops, no murmurs and no rubs Skin General skin exam: other ( warm) Extrem General: No clubbing, No cyanosis and No edema Assessment & Plan Assessment & Plan (1) COPD (chronic obstructive pulmonary disease): Code(s): J44.9 - Chronic obstructive pulmonary disease, unspecified Category: Medical Plan: Well controlled on current regimen of Anoro and albuterol MDI. Continue current regimen. (2) Personal history of nicotine dependence: Code(s): Z87.891 - Personal history of nicotine dependence Category: Medical Plan: Follow-up CT chest is pending for November of 2024. (3) MARU on CPAP: Code(s): G47.33 - Obstructive sleep apnea (adult) (pediatric); Z99.89 - Dependence on other enabling machines and devices Category: Medical Plan: Not controlled as patient was not able to use his machine for the last 6 months as it has not been working. Repeat order for the new machine placed with [employer]. Orders: Orders CT lung screening 11/27/24 Z87.891 - Personal history of nicotine dependence Coding Level of Care Code Est Pt Level 4 (46850) Complex EM visit Add On G2211 Diagnoses COPD (chronic obstructive pulmonary disease) J44.9 Personal history of nicotine dependence Z87.891 MARU on CPAP G47.33; Z99.89
== END 2024-06-25 11:36 | disposition home or self-care (01) ==
LOC: HO.HPS 11:04
PROVIDERS: PCP Internal Medicine; Visit Provider Internal Medicine Pulmonary Disease
DX: J44.9 Chronic obstructive pulmonary disease, unspecified (principal); Z87.891 Personal history of nicotine dependence; G47.33 Obstructive sleep apnea (adult) (pediatric); Z99.89 Dependence on other enabling machines and devices
CPT/HCPCS: 99214; G2211

== ENCOUNTER → 2024-06-25 11:03 | Outpatient (BNVA) | payer OTHER, SELFPAY | PROVIDERS: PCP Internal Medicine; Visit Provider Internal Medicine Pulmonary Disease | DX: J44.9 Chronic obstructive pulmonary disease, unspecified (principal); G47.33 Obstructive sleep apnea (adult) (pediatric); Z87.891 Personal history of nicotine dependence; Z99.89 Dependence on other enabling machines and devices | CPT/HCPCS: 99212 ==

== ENCOUNTER 2024-07-04 10:22 | Outpatient (REF) | payer OTHER, SELFPAY ==
--- NOTE | ~2024-07-04 | US_ITS ---
EXAMINATION: US RETROPERITONEAL COMPLETE (RENAL) CLINICAL INFORMATION: Nocturia. COMPARISON: Ultrasound abdomen 04/21/2022. CT abdomen and pelvis 04/20/2022. Renal ultrasound 10/02/2012. X-ray KUB 06/06/2010. TECHNIQUE: Real-time imaging of the kidneys and bladder. FINDINGS: RIGHT KIDNEY: 9.4 x 5.5 x 5.5 cm (SAG x AP x TRV). The kidney is normal in size, contour, and echogenicity. Renal cortical thickness is normal. No calculi or focal parenchymal lesions. No hydronephrosis. LEFT KIDNEY: 10.2 x 4.4 x 5.1 cm (SAG x AP x TRV). The kidney is normal in size, contour, and echogenicity. Renal cortical thickness is normal. No renal calculi or hydronephrosis. At the interpolar aspect, a 1.7 cm benign, simple cyst is seen, which requires no imaging follow-up. BLADDER: Well distended and normal. Bilateral ureteral jets are not demonstrated. Prevoid bladder volume is 162 mL. Postvoid bladder volume is 22 mL. PROSTATE GLAND: Prostate dimensions are 3.8 x 3.6 x 3.8 cm, volume 26.8 mL. US/US retroperitoneal comp IMPRESSION: Unremarkable examination. Electronically signed by: Juaquin Lee MD 07/06/2024 10:16 PM FRANCIS
== END 2024-07-04 10:23 | disposition home or self-care (01) ==
LOC: HO.US 10:22
PROVIDERS: PCP Internal Medicine; Visit Provider Nurse Practitioner Family
DX: R35.1 Nocturia (principal)
CPT/HCPCS: 76770

== ENCOUNTER 2024-07-23 08:47 | Outpatient (AMB) | payer OTHER, SELFPAY ==
[2024-07-23 08:54] VITALS: BP 120/50; PULSE 79; BMI 28.6
--- NOTE | 2024-07-23 08:54 | MHC.OFFVIS ---
Vital Signs 07/23/24 08:54 Height 5 ft 6 in Weight 177 lb 4.026 oz BMI 28.6 BP 120/50 L Blood Pressure Location Lt brachial Position Sitting Pulse 79 Pulse Source Pulse Oximeter Intake Visit Reasons: 3 mth f/up [employer] Required: No Accompanied by: Self / Same As Patient Allergies Penicillins Allergy (Mild, Verified 06/25/24 11:21) RASH ciprofloxacin [From Cipro] Allergy (Unknown, Verified 06/25/24 11:21) RASH Medication List - Last Reconciled 07/23/24 by Alex Gaytan MD acetaminophen ER 650 mg PO Q8H albuterol sulfate 90 mcg/actuation (Ventolin HFA) 2 puffs inhalation Q6H PRN amlodipine 2.5 mg PO DAILY 90 days Anoro Ellipta 62.5-25 mcg/actuation (umeclidinium-vilanterol) 1 ea PO DAILY NS aspirin (Adult Low Dose Aspirin) 81 mg PO DAILY atorvastatin 80 mg PO DAILY blood sugar diagnostic (FreeStyle Lite Strips) As directed bupropion HCl XL 150 mg PO DAILY clonazepam 1 mg PO DAILY docusate sodium 100 mg PO BID dulaglutide (Trulicity) 1 ea subcut QWEEK ezetimibe 10 mg PO DAILY insulin glargine (Lantus Solostar U-100 Insulin) 50 units subcut QPM ipratropium-albuterol 0.5 mg-3 mg(2.5 mg base)/3 mL 3 mL inhalation Q4-6H PRN isosorbide mononitrate ER 120 mg PO QAM lancets (FreeStyle Lancets) As directed loratadine 10 mg PO DAILY losartan 25 mg PO DAILY mesalamine ER 1.5 grams (4 x 0.375 gram) PO QAM metoprolol succinate ER 50 mg PO DAILY multivitamin with folic acid 400 mcg (Daily-Tiana (with folic acid)) tabs PO nebulizer and compressor As directed quetiapine 25 mg PO TID ranolazine ER 1,000 mg PO BID 90 days terazosin 5 mg PO BEDTIME 90 days theophylline ER 400 mg PO DAILY HPI Comments Details: Elio comes for follow-up. Unfortunately continues to not take medicines as prescribed as he says he feels side effects to it. However he does not call any of the physicians and just stops taking medications. Last LDL is 158 mg/dL, he says that he has not been taking atorvastatin. He unfortunately continues to smoke. He has exertional shortness of breath related to his COPD. Does not have any exertional anginal symptoms. Unsure as to what medications he is currently taking because he decides what he wants to take and what he does not want to take. This makes it very difficult. Unsure if he is taking any of his cardiac medications including aspirin at this point time [facility] Medical History Abnormal CT scan, gastrointestinal tract Memory difficulties On anticoagulant therapy On beta russ at home Angina of effort HLD (hyperlipidemia) HTN (hypertension) COPD (chronic obstructive pulmonary disease) Arthritis Diabetes mellitus, type 2 Coronary artery disease Dizziness Peripheral vascular disease Surgical History Hx of colonoscopy S/P cardiac catheterization (~12/2020) S/P cardiac cath (~04/2020) Stented coronary artery S/P cardiac cath (~08/2019) S/P CABG x 3 (~09/2018) H/O coronary artery bypass surgery Social History Household Members: Children Housing: House Alcohol intake: current Alcohol intake frequency: holidays/special occasions only Patient Tobacco Use Status: Current everyday Tobacco user Tobacco use type: Cigarette Cigarette Packs Per Day: 1 Cigarettes Per Day: 8 Advance Directives Date on File: 04/24/22 service: No Current occupational status: disabled Review of Systems Const Denies chills, Denies fatigue, Denies fever(s), Denies weight gain and Denies weight loss ENT Denies dizziness Card Denies chest pain, Denies leg edema, Denies lightheadedness, Denies palpitations, Reports dyspnea on exertion, Denies orthopnea and Denies other Resp Denies cough and Reports dyspnea on exertion GI Denies hematochezia and Denies change in stool character Musc Denies abnormal gait, Denies muscle weakness, Denies numbness, Denies radiating pain into limb and Denies tingling Neuro Denies abnormal gait, Denies dizziness, Denies numbness and Denies tingling Endo Denies fatigue and Denies palpitations Physical Exam Vital Signs: Last Vital Signs Pulse 79 07/23/24 08:54 BP 120/50 L 07/23/24 08:54 BMI result Body Mass Index 28.6 Const General: no acute distress and alert Nutritional Appearance: not obese Orientation/consciousness: Other orientation findings ( oriented) HEENT Head: Yes atraumatic Eyes General: appearance normal, both eyes and all related structures Sclerae: sclerae normal EOM: EOMs intact bilaterally Neck Neck: Yes supple Lymphatic: no lymphadenopathy noted Resp Effort & Inspection: normal respiratory effort and no use of accessory muscles Auscultation: wheezes (Bilateral expiratory) Cardio Rate: regular rate Rhythm: regular rhythm Heart sounds: no gallops, no murmurs and no rubs Skin General skin exam: other ( warm) Extrem General: No clubbing, No cyanosis and No edema Assessment & Plan Assessment & Plan (1) Coronary artery disease: Comment: Foll'd by Dr. Gaytan Code(s): I25.10 - Atherosclerotic heart disease of [place] coronary artery without angina pectoris Category: Medical Plan: Coronary artery disease, premature with coronary surgical revascularization with occluded graft to the circumflex RCA with stenting to the RCA territory multiple times. He currently does not have any symptoms angina unclear whether this is because he is taking his medications appropriately or not. Unfortunately has poorly optimized risk factors especially LDL which is at 158 mg/dL. This is probably because he is not taking his atorvastatin as prescribed. Importance of medical therapy was discussed to prevent recurrent cardiovascular events. Advised to read start atorvastatin follow-up lipid panel in 3 months. Also advised to cut smoking which she is currently not interested. Blood pressure is well optimized. Diabetes under your care with goal hemoglobin A1c less than 7%. Unfortunately due to noncompliance it is very difficult to manage this patient has likely to have cardiac events. Will follow up in the clinic in 6 months time, sooner p.r.n.. Thank you for allowing me to partake in his care Orders: Orders Lipid Panel 3 Months I25.10 - Atherosclerotic heart disease of [place] coronary artery without angina pectoris Medications: New atorvastatin 80 mg PO DAILY 30 tabs 5RF Coding Level of Care Code Est Pt Level 4 (08541) Complex EM visit Add On G2211 Diagnoses Coronary artery disease I25.10
== END 2024-07-23 09:17 | disposition home or self-care (01) ==
PROVIDERS: PCP Internal Medicine; Visit Provider Internal Medicine Cardiovascular Disease
DX: I25.10 Atherosclerotic heart disease of native coronary artery without angina pectoris (principal)
CPT/HCPCS: 99214; G2211

== ENCOUNTER → 2024-07-23 08:47 | Outpatient (BNVA) | payer OTHER, SELFPAY | PROVIDERS: PCP Internal Medicine; Visit Provider Internal Medicine Cardiovascular Disease | DX: I25.10 Atherosclerotic heart disease of native coronary artery without angina pectoris (principal) | CPT/HCPCS: 99212 ==

== ENCOUNTER 2024-08-12 13:21 | Outpatient (AMB) | payer OTHER, SELFPAY ==
--- NOTE | 2024-08-12 13:34 | MHC.OFFVIS ---
Vital Signs 08/12/24 13:43 Height 5 ft 6 in Weight 175 lb BMI 28.2 BP 149/64 H Blood Pressure Location Lt brachial Position Sitting Pulse 91 Pulse Source Pulse Oximeter Pulse Oximetry (%) 99 Oxygen Delivery Method Room Air Intake Visit Reasons: chronic midline low back pain/knee pain Intake Note: Pain today 6/10 Performance Improvement Coordinator Required: No Allergies Penicillins Allergy (Mild, Verified 08/12/24 13:43) RASH ciprofloxacin [From Cipro] Allergy (Unknown, Verified 08/12/24 13:43) RASH HPI Comments Details: Patient is a 69-year-old male who presents to the office today for evaluation and management of his chronic lower back. He has been suffering with this pain for greater than 10 years. Denies inciting injury, fall, trauma Endorses midline lower back pain without radiation down either lower extremity. Denies numbness, tingling, weakness, electrical pain down either lower extremity He also complains of bilateral knee pain, this is less severe than his back and he would like to focus on his back first. Pain today is rated as a 6/10, constant throughout the day. He completed physical therapy 8 years ago, he is unable to report if it improved his pain. He has not continued with home exercise program. He denies chiropractor, acupuncture or massage. Greater than 10 years ago he underwent injections to his back but he has not had any interventional management since then. Taking Tylenol with minimal improvement. Utilized tens unit greater than 8 years ago but has not used since. Denies red flag symptoms including new loss of bowel, bladder or saddle anesthesias Pain is worse with movement, bending, twisting In terms of muscle condition is described as shooting, sharp, pinching, dull, sore, aching, stinging, pulsing, throbbing Pain is negatively impacting patient's enjoyment of life, general activity, sleep, ability to perform activities of daily living Denies current use of anticoagulants Denies pacemaker, defibrillator, implantable devices Endorses 1/2 pack daily tobacco use Denied current use of illicit substances [facility] Medical History Abnormal CT scan, gastrointestinal tract Memory difficulties On anticoagulant therapy On beta russ at home Angina of effort HLD (hyperlipidemia) HTN (hypertension) COPD (chronic obstructive pulmonary disease) Arthritis Diabetes mellitus, type 2 Coronary artery disease Dizziness Peripheral vascular disease Surgical History Hx of colonoscopy S/P cardiac catheterization (~12/2020) S/P cardiac cath (~04/2020) Stented coronary artery S/P cardiac cath (~08/2019) S/P CABG x 3 (~09/2018) H/O coronary artery bypass surgery Social History Household Members: Children Housing: House Alcohol intake: current Alcohol intake frequency: holidays/special occasions only Patient Tobacco Use Status: Current everyday Tobacco user Tobacco use type: Cigarette Cigarette Packs Per Day: 1 Cigarettes Per Day: 8 Advance Directives Date on File: 04/24/22 service: No Current occupational status: disabled Review of Systems Const All systems reviewed & are unremarkable except as noted in HPI and below Physical Exam Vital Signs: Last Vital Signs Pulse 91 08/12/24 13:43 BP 149/64 H 08/12/24 13:43 Pulse Ox 99 08/12/24 13:43 Oxygen Delivery Method Room Air 08/12/24 13:43 BMI result Body Mass Index 28.2 General: awake, alert, oriented. Answers questions appropriately. Fully engaged in examination. Skin: warm, dry, intact HEENT: Normocephalic. Hearing intact. Cardiac: External chest normal in appearance. Respiratory: No cough, audible wheezing or stridor. Abdomen: without gross distension. MS: No obvious swelling or deformities. Able to stand on bilateral tiptoes and bilateral heels.? Able to transition from sit to stand unassisted. Ambulates with bilaterally normal heel strike and toe off Decreased lumbar range of motion. Pain worse with extension Tenderness over midline lumbar vertebrae and lumbar paraspinal muscles. Nontender for bilateral PSIS SLR negative bilaterally Bilateral lower extremity strength 5/5 Valsalva negative Spurling positive bilaterally Neurological: Oriented to person, place, time and situation. Thought process intact. No gait abnormalities appreciated. Psychiatric: Appropriate mood and affect. Good judgment and insight. Assessment & Plan Assessment & Plan (1) Lumbar spondylosis: Code(s): M47.816 - Spondylosis without myelopathy or radiculopathy, lumbar region Category: Medical (2) Bilateral knee pain: Code(s): M25.561 - Pain in right knee; M25.562 - Pain in left knee Category: Medical Plan 69-year-old male who presented to the office today for evaluation and management of his chronic lower back pain and bilateral knee pain X-rays ordered for evaluation Order placed for PT eval and treat Naproxen 250 mg p.o. twice daily as needed. Patient advised on cautions for use. Take with food, do not take with any other nonsteroidal anti-inflammatory medications. Patient denies current use of blood thinners. Denies history of gastric surgery, gastric ulcers, GI bleeding, rectal bleeding. Discussed options for treatment including diagnostic interventional testing, epidural steroid injections, peripheral nerve stimulation with Sprint, RFA and more permanent neuromodulation. We will discuss further after physical therapy is completed if pain persists. All questions and concerns were answered, patient agrees to plan. Follow up after x-rays/PT, sooner if needed Orders: Orders PT Evaluation and Treatment Today M47.816 - Spondylosis without myelopathy or radiculopathy, lumbar region XR lumbar spine 4V min Today M47.816 - Spondylosis without myelopathy or radiculopathy, lumbar region XR knee LT 3V Today M25.561 - Pain in right knee, M25.562 - Pain in left knee XR knee RT 3V Today M25.561 - Pain in right knee, M25.562 - Pain in left knee Medications: New naproxen Take with food, do not take with any other nonsteroidal anti-inflammatory medications. 250 mg PO BID PRN 60 tabs 1RF pain Coding Level of Care Code New Pt Level 4 (65468) Complex EM visit Add On G2211 Diagnoses Lumbar spondylosis M47.816 Bilateral knee pain M25.561; M25.562
[2024-08-12 13:43] VITALS: BP 149/64; PULSE 91; O2SAT 99; BMI 28.2
== END 2024-08-12 14:04 | disposition home or self-care (01) ==
PROVIDERS: PCP Internal Medicine; Visit Provider Registered Nurse Emergency
DX: M47.816 Spondylosis without myelopathy or radiculopathy, lumbar region (principal); M25.561 Pain in right knee; M25.562 Pain in left knee
CPT/HCPCS: 99204; G2211

== ENCOUNTER → 2024-08-12 13:21 | Outpatient (BNVA) | payer OTHER, SELFPAY | PROVIDERS: PCP Internal Medicine; Visit Provider Registered Nurse Emergency | DX: M47.816 Spondylosis without myelopathy or radiculopathy, lumbar region (principal); M25.561 Pain in right knee; M25.562 Pain in left knee | CPT/HCPCS: 99202 ==

== ENCOUNTER 2024-09-03 10:05 | Outpatient (AMB) | payer OTHER, SELFPAY ==
--- NOTE | 2024-09-03 10:09 | A.OFFVIS_ITS ---
Intake Visit Reasons: 3M US follow up Intake Note: Patient presents for follow up visit for nocturia and ultrasound results * Imaging Completed: 07/04/24 Urology Medications: none Blood Thinner: aspirin * PVR: 36ml's Claim Rep Required: No Accompanied by: Self / Same As Patient Allergies Penicillins Allergy (Mild, Verified 09/03/24 10:24) RASH ciprofloxacin [From Cipro] Allergy (Unknown, Verified 09/03/24 10:24) RASH Medication List - Last Reconciled 09/03/24 by JESIKA Murray-IMTIAZ acetaminophen ER 650 mg PO Q8H albuterol sulfate 90 mcg/actuation (Ventolin HFA) 2 puffs inhalation Q6H PRN amlodipine 2.5 mg PO DAILY 90 days Anoro Ellipta 62.5-25 mcg/actuation (umeclidinium-vilanterol) 1 ea PO DAILY NS aspirin (Adult Low Dose Aspirin) 81 mg PO DAILY atorvastatin 80 mg PO DAILY blood sugar diagnostic (FreeStyle Lite Strips) As directed bupropion HCl XL 150 mg PO DAILY clonazepam 1 mg PO DAILY docusate sodium 100 mg PO BID dulaglutide (Trulicity) 1 ea subcut QWEEK ezetimibe 10 mg PO DAILY insulin glargine (Lantus Solostar U-100 Insulin) 50 units subcut QPM ipratropium-albuterol 0.5 mg-3 mg(2.5 mg base)/3 mL 3 mL inhalation Q4-6H PRN isosorbide mononitrate ER 120 mg PO QAM lancets (FreeStyle Lancets) As directed loratadine 10 mg PO DAILY losartan 25 mg PO DAILY mesalamine ER 1.5 grams (4 x 0.375 gram) PO QAM metoprolol succinate ER 50 mg PO DAILY multivitamin with folic acid 400 mcg (Daily-Tiana (with folic acid)) tabs PO naproxen 250 mg PO BID PRN nebulizer and compressor As directed quetiapine 25 mg PO TID ranolazine ER 1,000 mg PO BID 90 days terazosin 5 mg PO BEDTIME 90 days theophylline ER 400 mg PO DAILY HPI Comments Details: Elio is a 69-year-old male patient of Dr.?Barciona Cintron. He has a past medical history of memory difficulties, hyperlipidemia, hypertension, COPD, arthritis, type 2 diabetes, coronary artery disease, and peripheral vascular disease. He presents to the office today for follow-up. Of note, patient was seen approximately 3 months ago as a new patient for nocturia at which time a retroperitoneal ultrasound was ordered for further assessment evaluation and patient's Flomax was discontinued and started on terazosin. In discussion with the patient today he reports no improvement in episodes of nocturia and continues to experience urinary urgency and frequency. Recent retroperitoneal ultrasound results reviewed with the patient today. Bilateral kidneys with no calculi, lesions, and or hydronephrosis. Left 1.7 cm benign simple appearing cyst which requires no imaging follow-up per radiology report. The bladder is well distended and normal. Pre void bladder volume is approximately 160 mL. Postvoid bladder volume is approximately 20 mL. Prostate measures 27 mL. Does report compliance with CPAP machine. In office urinalysis results reviewed with the patient today. Patient continues to report nocturia up to 5 times per night. He also reports noting episodes of urinary urgency and frequency throughout the day however he does not find these bothersome. He denies incontinence, hematuria, dysuria, foul smelling urine, changes to urinary stream, flank pain, fever, and or chills. In office urinalysis results with the patient today. PVR 36 mL He does report a longstanding history of nicotine dependence. We discussed importance of limiting/quitting for overall health and well-being. Patient had previously trialed Flomax with no improvement. He otherwise offers no other issues or concerns at this time. PSA 04/19 0.9 PFSH Medical History Abnormal CT scan, gastrointestinal tract Memory difficulties On anticoagulant therapy On beta russ at home Angina of effort HLD (hyperlipidemia) HTN (hypertension) COPD (chronic obstructive pulmonary disease) Arthritis Diabetes mellitus, type 2 Coronary artery disease Dizziness Peripheral vascular disease Surgical History Hx of colonoscopy S/P cardiac catheterization (~12/2020) S/P cardiac cath (~04/2020) Stented coronary artery S/P cardiac cath (~08/2019) S/P CABG x 3 (~09/2018) H/O coronary artery bypass surgery Social History Household Members: Children Housing: House Alcohol intake: current Alcohol intake frequency: holidays/special occasions only Patient Tobacco Use Status: Current everyday Tobacco user Tobacco use type: Cigarette Cigarette Packs Per Day: 1 Cigarettes Per Day: 8 Advance Directives Date on File: 04/24/22 service: No Current occupational status: disabled Office Procedures Post Void Residual Post Residual Void Post Void Residual (PVR): 36 [id number] Void Residual by ultrasound Results AMB Urinalysis, Automated UA Leukoctes 0 Shelia/uL Last Edit by Rosie Randall on 09/03/24 10:19 UA Nitrite Last Edit by Microinoxmaggie Randall on 09/03/24 10:19 UA Urobilinogen 0.2 mg/dL Last Edit by DealCuriousivania Randall on 09/03/24 10:19 UA Protein 0 mg/dL Last Edit by Fourandhalf on 09/03/24 10:19 UA pH 6.0 Last Edit by Rosie Randall on 09/03/24 10:19 UA Blood 10 Paulino/uL Last Edit by Microinoxmaggie Randall on 09/03/24 10:19 UA Specific [place] 1.010 Last Edit by Microinoxmaggie Randall on 09/03/24 10:19 UA Ketone Last Edit by Microinoxmaggie Randall on 09/03/24 10:19 UA Bilirubin 0 mg/dL Last Edit by Fourandhalf on 09/03/24 10:19 UA Glucose 0 mg/dL Last Edit by Fourandhalf on 09/03/24 10:19 Results Reviewed Results Reviewed: Laboratory Last Values Urine pH (Auto) 6.0 09/03/24 10:18 Specific [place] (Auto) 1.010 09/03/24 10:18 Urine Protein (Auto) 0 mg/dL 09/03/24 10:18 Glucose (UA)(Auto) 0 mg/dL 09/03/24 10:18 Urine Blood (Auto) 10 Paulino/uL 09/03/24 10:18 Urine Bilirubin (Auto) 0 mg/dL 09/03/24 10:18 Urine Urobilinogen (Auto) 0.2 mg/dL 09/03/24 10:18 Leukocyte Esterase (Auto) 0 Shelia/uL 09/03/24 10:18 Date of Service: 07/04/24 Procedure(s): US retroperitoneal comp FINDINGS: RIGHT KIDNEY: 9.4 x 5.5 x 5.5 cm (SAG x AP x TRV). The kidney is normal in size, contour, and echogenicity. Renal cortical thickness is normal. No calculi or focal parenchymal lesions. No hydronephrosis. LEFT KIDNEY: 10.2 x 4.4 x 5.1 cm (SAG x AP x TRV). The kidney is normal in size, contour, and echogenicity. Renal cortical thickness is normal. No renal calculi or hydronephrosis. At the interpolar aspect, a 1.7 cm benign, simple cyst is seen, which requires no imaging follow-up. BLADDER: Well distended and normal. Bilateral ureteral jets are not demonstrated. Prevoid bladder volume is 162 mL. Postvoid bladder volume is 22 mL. PROSTATE GLAND: Prostate dimensions are 3.8 x 3.6 x 3.8 cm, volume 26.8 mL. IMPRESSION: Unremarkable examination. Assessment & Plan Assessment & Plan (1) Nocturia: Code(s): R35.1 - Nocturia Category: Medical (2) Renal cyst: Code(s): N28.1 - Cyst of kidney, acquired Category: Medical Plan In office urinalysis results reviewed the patient today; will send for urine cytology. PVR 36 mL. Recent retroperitoneal ultrasound results reviewed with the patient today; as noted above. We discussed importance of limiting fluids 2-3 hours prior to bed decrease episodes of nocturia. We discussed importance of compliance with CPAP machine for improvement in lower urinary tract symptoms as well as overall health and well-being. Stopped terazosin. Start tolterodine. Discussed potential for near future in office cystoscopy and or urodynamics if symptoms continue and or worsen. We discussed bladder triggers/irritants. Follow-up in 6-8 weeks with PVR; or sooner with any issues, concerns, and or questions. Orders: Orders AMB Urinalysis Automated Today Z13.9 - Encounter for screening, unspecified AMB Post Void Residual by ultrasound Today R35.1 - Nocturia Medications: New tolterodine ER 2 mg PO DAILY 30 days 30 caps 3RF R39.15 - Urgency of urination Discontinued terazosin Discontinued Reason: Doctor's Order 5 mg PO BEDTIME 90 days 90 caps 1RF N40.1 - Benign prostatic hyperplasia with lower urinary tract symptoms, R35.0 - Frequency of micturition Patient Instructions: The patient had an opportunity to ask questions regarding the treatment plan. All questions were answered. Physical exam, labs, and imaging were discussed and reviewed in detail. As well as risks, benefits, and discussion of treatment choices. No major barriers to understanding were identified. The patient expressed understanding and agreement with the above treatment plan. The patient was made aware they should contact our office by phone for worsening of their current condition, the appearance of new symptoms, or with any questions or concerns. Compliance is encouraged with any medications and follow up testing that is ordered. It is a privilege to be allowed the opportunity to participate in? your urological care.? Again, if you have any questions or concerns If you have any questions or concerns please do not hesitate to contact me. The office is [phone]. This note is constructed using voice recognition software. While every effort has been made to ensure accuracy seconds inspector errors may have been included. Yours sincerely, KISHORE Murray Coding Level of Care Code Est Pt Level 4 (32161) Diagnoses Nocturia R35.1 Renal cyst N28.1 CPT Codes Post Residual Void - PVR CPT Code: 87985-Ozwm Void Residual by ultrasound ([id number])
== END 2024-09-03 10:42 | disposition home or self-care (01) ==
PROVIDERS: PCP Internal Medicine; Visit Provider Nurse Practitioner Family
DX: R35.1 Nocturia (principal); N28.1 Cyst of kidney, acquired; Z13.9 Encounter for screening, unspecified
CPT/HCPCS: 99214

== ENCOUNTER 2024-09-03 10:05 | Outpatient (REF) | payer OTHER, SELFPAY ==
[2024-09-03 16:53] LABS: Urine Cytology See Pathology rpt
== END 2024-09-03 10:06 | disposition home or self-care (01) ==
LOC: HO.LNP 10:05
PROVIDERS: PCP Internal Medicine; Visit Provider Nurse Practitioner Family
DX: R35.1 Nocturia (principal); R82.998 Other abnormal findings in urine; Z79.82 Long term (current) use of aspirin; Z13.9 Encounter for screening, unspecified
CPT/HCPCS: 51798; 81003; 88112; 99212

== ENCOUNTER 2024-10-29 09:30 | Outpatient (AMB) | payer OTHER, SELFPAY ==
--- NOTE | 2024-10-29 09:31 | MHC.OFFVIS ---
Vital Signs 10/29/24 09:32 Height 5 ft 6 in Weight 175 lb BMI 28.2 BP 140/82 H Blood Pressure Location Rt brachial Position Sitting Pulse 90 Pulse Source Doppler Pulse Oximetry (%) 98 Oxygen Delivery Method Room Air Intake Visit Reasons: Obstructive sleep apnea Allergies Penicillins Allergy (Mild, Verified 10/29/24 09:36) RASH ciprofloxacin [From Cipro] Allergy (Unknown, Verified 10/29/24 09:36) RASH HPI HPI Obstructive sleep apnea: Details: 69-year-old gentleman, active 50+ pack-year smoker, followed for underlying moderate COPD , MARU, and pulmonary nodules.? His CT chest showed stable pulmonary nodules.? Patient continues on Anoro with good control of his underlying symptoms. Patient has received his CPAP machine has been working on being more compliant with using it. [facility] Medical History Abnormal CT scan, gastrointestinal tract Memory difficulties On anticoagulant therapy On beta russ at home Angina of effort HLD (hyperlipidemia) HTN (hypertension) COPD (chronic obstructive pulmonary disease) Arthritis Diabetes mellitus, type 2 Coronary artery disease Dizziness Peripheral vascular disease Surgical History Hx of colonoscopy S/P cardiac catheterization (~12/2020) S/P cardiac cath (~04/2020) Stented coronary artery S/P cardiac cath (~08/2019) S/P CABG x 3 (~09/2018) H/O coronary artery bypass surgery Social History Household Members: Children Housing: House Alcohol intake: current Alcohol intake frequency: holidays/special occasions only Patient Tobacco Use Status: Current everyday Tobacco user Tobacco use type: Cigarette Cigarette Packs Per Day: 1 Cigarettes Per Day: 8 Advance Directives Date on File: 04/24/22 service: No Current occupational status: disabled Review of Systems Const Denies daytime sleepiness, Denies excessive sweating, Denies fatigue, Denies fever(s), Denies lethargy, Denies malaise, Denies night sweats, Denies snoring and Denies weight loss Eyes Denies blurry vision and Denies itchy eyes ENT Denies nasal congestion, Denies post nasal drip, Denies sinus pain, Denies sinus pressure and Denies other ( Thrush) Card Denies chest pain, Denies pedal edema, Denies dyspnea, Denies orthopnea and Denies paroxysmal nocturnal dyspnea Resp Denies cough, Denies hemoptysis, Denies excessive phlegm production, Denies dyspnea, Denies snoring and Denies wheezing GI Denies abdominal pain and Denies heartburn Musc Denies myalgias, Denies arthralgias and Denies joint swelling Skin/Breast Denies rash Neuro Denies memory loss and Denies seizure-like activity Psych Denies abnormal sleep pattern, Denies anxiety and Denies memory loss Endo Denies excessive sweating, Denies fatigue and Denies heat intolerance Prasanth/Lymph Denies easy bruising Aller/Immun Denies itchy eyes, Denies seasonal rhinorrhea and Denies wheezing Physical Exam Vital Signs: Last Vital Signs Pulse 90 10/29/24 09:32 BP 140/82 H 10/29/24 09:32 Pulse Ox 98 10/29/24 09:32 Oxygen Delivery Method Room Air 10/29/24 09:32 BMI result Body Mass Index 28.2 Const General: no acute distress and alert Nutritional Appearance: not obese Orientation/consciousness: Other orientation findings ( oriented) HEENT Head: Yes atraumatic Eyes General: appearance normal, both eyes and all related structures Sclerae: sclerae normal EOM: EOMs intact bilaterally Neck Neck: Yes supple Lymphatic: no lymphadenopathy noted Resp Effort & Inspection: normal respiratory effort and no use of accessory muscles Auscultation: clear to auscultation bilaterally Cardio Rate: regular rate Rhythm: regular rhythm Heart sounds: no gallops, no murmurs and no rubs Skin General skin exam: other ( warm) Extrem General: No clubbing, No cyanosis and No edema Assessment & Plan Assessment & Plan (1) COPD (chronic obstructive pulmonary disease): Code(s): J44.9 - Chronic obstructive pulmonary disease, unspecified Category: Medical Plan: Well controlled on baseline regimen of Anoro and albuterol MDI. Continue current regimen. Now with mild exacerbation, will treat with a course of prednisone. (2) MARU on CPAP: Code(s): G47.33 - Obstructive sleep apnea (adult) (pediatric); Z99.89 - Dependence on other enabling machines and devices Category: Medical Plan: Suboptimal compliance. Patient has been encouraged to be more compliant with his CPAP use. Ramp setting adjusted. (3) Personal history of nicotine dependence: Code(s): Z87.891 - Personal history of nicotine dependence Category: Medical Plan: Results of lung cancer screening CT chest reviewed, no worrisome nodules. Continue with yearly screening, next in November of 2024. Medications: New prednisone 40 mg (2 x 20 mg) PO DAILY 10 tabs 0RF Coding Level of Care Code Est Pt Level 4 (11598) Complex EM visit Add On G2211 Diagnoses COPD (chronic obstructive pulmonary disease) J44.9 MARU on CPAP G47.33; Z99.89 Personal history of nicotine dependence Z87.891
[2024-10-29 09:32] VITALS: BP 140/82; PULSE 90; O2SAT 98; BMI 28.2
--- OUTSIDE RECORDS SUMMARY | 2024-10-29 10:47 | XMS_ITS | Encounter Summary ---
Author Organization [employer] Address [address] [facility] [address] [place] [address] Care Team Providers Care Traffic Monitor Specialist Name Role Phone Susie Park MD Primary Care Provide r Reason for Visit * Reason Comments Med Refill Encounter Details Date Type Department Care Team (Late st Contact Info) Description 09/20/2023 Refill [facility] MEDICINE [address] [place], [place] [phone] Kacey Edwards MD [address] [place], [place] [phone] Otitis externa of both ears, unspecified chronicity, unspecified type Social History Tobacco Use Types Packs/Day Years Used Date Smoking Tobacco: Every Day Cigarettes Passive Smoke Exposure: Current Smokeless Tobacco: Never Alcohol Use Standard Drinks/Week Comments Yes 0 (1 standard drink = 0.6 oz pur e alcohol) Rare Depression Answer Date Recorded Patient Health Questionnaire-9 Score 8 10/24/2022 Housing Stability Answer Date Recorded What is your housing situation today? I have cristhian palmer 09/24/[address] you li ve. Do you have problems with any of the following? None of the above 09/24/2023 Food Insecurity Answer Date Recorded Within the past 12 months, y ou worried that your food would run out before you got money to buy more: Never True 09/24/2023 Within the past 12 months,th e food you bought just didn't last and you didn't have enough money to get more: Never True Transportation Answer Date Recorded In the past 12 months, has l ack of transportation kept you from medical appts, meetings, work or from getting things needed for daily living? No 09/24/2023 Utilities Answer Date Recorded In the past 12 months, has t he electric, gas, oil or water company threatened to shut off services in your home? No 09/24/2023 Depression Answer Date Recorded Patient Health Questionnaire-2 Score 2 10/24/2022 Sex and Gender Information Value Date Recorded Sex Assigned at Male 06/26/2022 10:20 AM EDT Legal Sex Male 10:20 AM EDT Gender Identity Male 06/26/2022 10:20 AM EDT Sexual Orientation Choose not to disclose 2021 10:20 AM EDT documented as of this encounter Plan of Treatment Not on file documented as of this encounter Visit Diagnoses Diagnosis Otitis externa of both ears, unspecified chronicity, unspecified type documented in this encounter Additional Health Concerns Assessment Noted Time PHQ-9 Depression Total Score: 8 10/24/19 23 11:22 AM EST documented as of this encounter Care Teams Traffic Monitor Specialist Relationship Specialty Start Date End Date Susie Park MD [address] [place] [id number] PCP - General Family Medicine 07/08/18 documented as of this encounter
--- OUTSIDE RECORDS SUMMARY | 2024-10-29 10:47 | XMS_ITS | Encounter Summary ---
Author Organization [employer] Address [address] [facility] [address] [place] [address] Care Team Providers Care Abstract Manager Name Role Phone Susie Park MD Primary Care Provide r Reason for Visit * Reason Onset Date Comments Nurse Triage 10/18/2023 Encounter Details Date Type Department Care Team ([facility] st Contact Info) Description 10/18/2023 Telephone [facility] MEDICINE [address] [place], [place] [phone] Susie Park MD [address] [place], [place] [phone] Nurse Triage Social History Tobacco Use Types Packs/Day Years [...] AM EDT documented as of this encounter Miscellaneous Notes * Telephone Encounter - Vicky Delacruz RN - 10/18/2023 2:55 PM EST Call to Elio Calles, spoke with both patient and daughter. Reports Patient tested positive for COVID-19 today. Pt sx onset was 2 days ago. Pt having CP, SOB, cough. Pt has been having to use nebulizer Q4H. Minimal relief. Pt having chest tightness. No fever. Pt states feeling as if got run enoc a truck . Pt and daughter advised of disposition, agree to [facility] ER now for exam due to CP and SOBalong with pt hx. Reviewed home care advise, ER precautions and reasons to call back. Sent to team for ER status check PRN. Protocol Used: COVID-19 - Diagnosed or Suspected (Adult) Protocol-Based Disposition: Go to ED Now Positive Triage Questions: * Severe or constant chest pain or pressure (Exception: Mild central chest pain, present only when coughing.) * Moderate difficulty breathing (e.g., speaks in phrases, SOB even at rest, pulse 100-120) * All higher-acuity triage questions were negative Care Advice Discussed: * Reassurance and Education - Positive COVID-19 Lab Test and Mild Symptoms * Cough Medicines * Coughing Spells * Pain and Fever Medicines * Reasons To Call Back - You become worse * Telephone Encounter - Rebecca Hernandez - 10/18/2023 2:42 PM EST Symptoms: COVID-19 Suspected, Chest Pain - Adult, Cough Outcome: Transfer to a nurse or provider NOW! Reason: Trouble breathing The caller accepted this outcome documented in this encounter Plan of Treatment Not on file documented as of this encounter Visit Diagnoses Not on filedocumented in this encounter Additional Health Concerns Assessment Noted Time PHQ-9 Depression Total Score: 8 10/24/19 23 11:22 AM EST documented as of this encounter Care Teams Abstract Manager Relationship Specialty Start Date End Date Susie Park MD [address] [place] [id number] PCP - General Family Medicine 07/08/18 documented as of this encounter
--- OUTSIDE RECORDS SUMMARY | 2024-10-29 10:47 | XMS_ITS | Encounter Summary ---
Author Organization [employer] Address [address] [facility] [address] [place] [address] Care Team Providers Care Doughnut Maker Name Role Phone Susie Park MD Primary Care Provide r Encounter Details Date Type Department Care Team ([facility] st Contact Info) Description 09/03/2023 Orders Only [facility] MEDICINE [address] [place] [address] Susie Park MD [address] [place], [place] [phone] Social History Tobacco Use Types Packs/Day Years Used Date Smoking Tobacco: Every Day Cigarettes Passive Smoke Exposure: Current Smokeless Tobacco: Never Alcohol Use Standard Drinks/Week Comments Yes 0 (1 standard drink = 0.6 oz pur e alcohol) Rare Depression Answer Date Recorded Patient Health Questionnaire-9 Score 8 10/24/2022 Housing Stability Answer Date Recorded What is your housing situation today? I have cristhian palmer 06/12/[address] you li ve. Do you have problems with any of the following? None of the above 06/12/2023 Food Insecurity Answer Date Recorded Within the past 12 months, y ou worried that your food would run out before you got money to buy more: Never True 06/12/2023 Within the past 12 months,th e food you bought just didn't last and you didn't have enough money to get more: Never True Transportation Answer Date Recorded In the past 12 months, has l ack of transportation kept you from medical appts, meetings, work or from getting things needed for daily living? No 06/12/2023 Utilities Answer Date Recorded In the past 12 months, has t he electric, gas, oil or water company threatened to shut off services in your home? No 06/12/2023 Depression Answer Date Recorded Patient Health Questionnaire-2 [...] documented as of this encounter Care Teams Doughnut Maker Relationship Specialty Start Date End Date Susie Park MD [address] [place] [address] PCP - General Family Medicine 07/08/18 documented as of this encounter
--- OUTSIDE RECORDS SUMMARY | 2024-10-29 10:47 | XMS_ITS | Encounter Summary ---
Author Organization [employer] Address [address] [facility] [address] [place] [address] Care Team Providers Care Sap Architect Name Role Phone Susie Park MD Primary Care Provide r Reason for Visit * Reason Comments Med Refill Encounter Details Date Type Department Care Team (Late st Contact Info) Description 09/26/2023 Refill [facility] MEDICINE [address] [place], [place] [phone] Susie Park MD [address] [place], [place] [phone] Coronary artery disease involving [place]iletz tribe coronary artery of siletz tribe heart with angina pectoris (CMS/HCC) Social History Tobacco Use Types Packs/Day Years [...] as of this encounter Visit Diagnoses Diagnosis Coronary artery disease involving s[place]tz tribe coronary artery of siletz tribe heart with angina pectoris (CMS/HCC) documented in this encounter Additional Health Concerns Assessment Noted Time PHQ-9 Depression Total Score: 8 10/24/19 23 11:22 AM EST documented as of this encounter Care Teams Sap Architect Relationship Specialty Start Date End Date Susie Park MD [address] [place] [id number] PCP - General Family Medicine 07/08/18 documented as of this encounter
--- OUTSIDE RECORDS SUMMARY | 2024-10-29 10:47 | XMS_ITS | Encounter Summary ---
Author Organization [employer] Address [address] [facility] [address] [place] [address] Care Team Providers Care Rubber Goods Inspector Tester Name Role Phone Susie Park MD Primary Care Provide r Encounter Details Date Type Department Care Team ([facility] st Contact Info) Description 03/07/2023 Orders Only [facility] MEDICINE [address] [place] [address] Jodie Mejia MD [address] [place] [address] Psoriasis (Primary Dx) Social History Tobacco Use Types Packs/Day Years Used Date Smoking Tobacco: Every Day Cigarettes Passive Smoke Exposure: Current Smokeless Tobacco: Never Alcohol Use Standard Drinks/Week Comments Yes 0 (1 standard drink = 0.6 oz pur e alcohol) Rare Depression Answer Date Recorded Patient Health Questionnaire-9 Score 8 10/24/2022 Depression Answer Date Recorded Patient Health Questionnaire-2 Score 2 10/24/2022 Sex and Gender Information Value Date Recorded Sex Assigned at Male 06/26/2022 10:20 AM EDT Legal Sex Male 10:20 AM EDT Gender Identity Male 06/26/2022 10:20 AM EDT Sexual Orientation Choose not to disclose 2021 10:20 AM EDT COVID-19 Exposure Response Date Recorded In the last 10 days, have yo u been in contact with someone who was confirmed or suspected to have Coronavirus/COVID-19? No / Unsure 03/05/2023 3:30 PM EDT documented as of this encounter Plan of Treatment Scheduled Orders Name Type Priority Associated Diagnoses Orde r Schedule Hepatitis B Core Antibody, Total Lab Routine Psoriasis Expected: 03/07/2023 (Approximate), Expires: 03/07/2024 Hepatitis B Surface Antibody, Qualitative Lab Routine Psoriasis Expected: 03/07/2023 (Approximate), Expires: 03/07/2024 Hepatitis B Surface Antigen with Reflex Confirmation Lab Routine Psoriasis Expected: 03/07/2023 (Approximate), Expires: 03/07/2024 HIV-1/2 Antigen and Antibodies, Fourth Generation, with Reflexes Lab Routine Psoriasis Expected: 03/07/2023 (Approximate), Expires: 03/07/2024 Hepatitis C Antibody with Reflex to HCV, RNA, Quantitative, Real-Time PCR Lab Routine Psoriasis Expected: 03/07/2023 (Approximate), Expires: 03/07/2024 documented as of this encounter Visit Diagnoses Diagnosis Psoriasis- Primary Other psoriasis documented in this encounter Additional Health Concerns Assessment Noted Time PHQ-9 Depression Total Score: 8 10/24/19 23 11:22 AM EST documented as of this encounter Care Teams Rubber Goods Inspector Tester Relationship Specialty Start Date End Date Susie Park MD [address] [place] [id number] PCP - General Family Medicine 07/08/18 documented as of this encounter
--- OUTSIDE RECORDS SUMMARY | 2024-10-29 10:47 | XMS_ITS | Clinical Summary ---
Author Organization [employer] Address [address] [place] [address] Care Team Providers Care Planner Internship Name Role Phone Susie Park MD Primary Care Provide r Allergies Active Allergy Reactions Criticality Noted Date Comments Ciprofloxacin Unknown 11/23/2010 Penicillins Unknown 11/23/2010 Medications cyclobenzaprine (Flexeril) 10 MG tabletIndications :Pain take 1 tablet by oral route 3 times every day 60 tablet Active amLODIPine (Norvasc) 2.5 MG tablet take 1 tablet by oral route every day Active buPROPion XL (Wellbutrin XL) 150 MG 24 hr tablet take 1 tablet by oral route every day Active Stool Softener 100 MG capsule Take 1 capsule by mouth 1 (one) time each day at the same time. Active ezetimibe (Zetia) 10 MG tablet take 1 tablet by oral route every day Active isosorbide mononitrate ER (Imdur) 120 MG 24 hr tablet Take 1 tablet by mouth daily in the morning Active losartan (Cozaar) 25 MG tablet take 1 tablet by oral route every day Active metoprolol tartrate (Lopressor) 50 MG tablet Take 1 tablet by mouth twice daily Active naloxone (Narcan) 4 mg/0.1 mL nasal spray spray 0.1 milliliter by intranasal route in 1 nostril may repeat dose every 2-3 minutes as needed alternating nostrils with each dose Active pantoprazole (ProtoNix) 40 MG EC tablet take 1 tablet by oral route every day Active [facility] Daily Fiber 58.6 % packet MIX AND DRINK 1 PACKET DAILY Active ranolazine (Ranexa) 1000 MG 12 hr tablet take 1 tablet by oral route 2 times every day Active senna (Senokot) 8.6 MG tablet Take 1 tablet by mouth daily at bedtime Active simethicone (Mylicon,Gas-X) 180 MG capsule take 1 capsule twice a day prn bloating Active theophylline ER (Uniphyl) 400 MG 24 hr tablet 1 tab daily Activ e clonazePAM (KlonoPIN) 1 MG tablet Take 1 tablet by mouth twice daily and 2 tablets at bedtime Active QUEtiapine (SEROquel) 25 MG tablet Take 1 tablet by mouth twice daily, may take an additional tablet at bedtime if needed. Active Brilinta 60 MG tablet Take 1 tablet by mouth twice daily Active acarbose (Precose) 50 MG tablet take 1 tablet by oral route 2 times every day at the start (with the first bite) of each main meal 180 tablet 1 023 Active triamcinolone (Kenalog) 0.1 % cream Apply topically at bedtime. 80 g 5 023 Active ustekinumab (Stelara) injectionIndicati ons:Psoriasis Loading dose: Subcutaneous injection week 0 and week 4. Sending new Rx for continuing therapy. 45 mL 1 023 Active ustekinumab (Stelara) injectionIndicati ons:Psoriasis This Rx is for maintenance dosing to follow loading dose sent in separate Rx. 45 mL 4 023 Active Alcohol Swabs (B-D SINGLE USE SWABS REGULAR) pads Apply 100 each topically 3 times daily. Use twice daily as directed 100 each Active insulin pen needle (UltiCare Micro Pen [place]) 32G x 4 mm misc Use daily to inject insulin 100 each Active Wixela Inhub 250-50 MCG/ACT aerosol powder INHALE 1 PUFF BY MOUTH TWICE A DAY ( MORNING AND EVENING) 60 each 1 023 Active calcipotriene (Dovonex) 0.005 % cream Apply topically 2 times daily. 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 place 1 tablet by sublingual route at the first sign of an attack; no more than 3 tabs are recommended within a 15 minute period. 90 tablet 024 Active nicotine (Nicoderm CQ) 14 MG/24HR patchIndications: Smoker Place 1 patch on the skin 1 (one) time each day at the same time. 30 patch 024 Active FreeStyle lancets 1 each by Other route 2 times daily. Use to test blood sugar twice daily 100 each Active halobetasol (UltraVATE) 0.05 % ointment Apply topically 2 times daily. 50 g 1 024 Active albuterol (2.5 MG/3ML) 0.083% nebulizer solution INHALE 3 MILLILITER BY NEBULIZATION ROUTE 3 TIMES EVERY DAY 90 mL 1 024 Active glucose blood (FREESTYLE LITE) test stripIndications: Type 2 diabetes mellitus with other specified complication, with long-term current use of insulin ([facility]) TEST BLOOD SUGAR TWICE A DAY 100 each 024 Active atorvastatin (Lipitor) 40 MG tabletIndications :Type 2 diabetes mellitus with other specified complication, with long-term current use of insulin ([facility]) Take 1 tablet (40 mg) by mouth Once per day. 30 tablet 024 2024 Active Diclofenac Sodium 1 % gelIndications:Ch ronic pain of both knees apply (2G) by topical route 2 times every day to the affected area(s) 90 g 024 Active dulaglutide (Trulicity) 0.75 MG/0.5ML solution pen-injector INJECT 0.5 ML EVERY WEEK IN ABDOMEN,THIGH OR UPPER ARM ROTATE SITES 2 mL 5 024 Active loratadine (Claritin) 10 MG tabletIndications :Intrinsic eczema TAKE 1 TABLET BY MOUTH EVERY MORNING 28 tablet 5 024 Active tamsulosin (Flomax) 0.4 MG 24 hr capsuleIndication s:Benign prostatic hyperplasia with nocturia Take 1 capsule (0.4 mg) by mouth Once per day. 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 Do not break, crush, dissolve and/or chew. 90 tablet 1 025 Active Trulicity 0.75 MG/0.5ML solution auto-injector INJECT 0.5 ML EVERY WEEK IN ABDOMEN,THIGH OR UPPER ARM ROTATE SITES 2 mL 1 025 Active albuterol 108 (90 Base) MCG/ACT inhaler INHALE 2 PUFFS BY MOUTH EVERY SIX HOURS NEEDED FOR WHEEZING 8.5 g 2 025 Active Trulicity 0.75 MG/0.5ML solution auto-injector INJECT 0.5 ML EVERY WEEK IN ABDOMEN,THIGH OR UPPER ARM ROTATE SITES 2 mL 1 025 2024 Discontinued albuterol 108 (90 Base) MCG/ACT inhaler INHALE 2 PUFFS BY MOUTH EVERY SIX HOURS NEEDED FOR WHEEZING 8.5 g 2 025 2024 Discontinued Active Problems Problem Noted Date Diagnosed Date Benign prostatic hyperplasia with nocturia 04/14 Precordial pain 09/24/2023 Assessment & Plan (09/24/2023 11:40 AM EST): EKG today no changes compared with EKG done on 08/21/22 nitroglycerin refilled If chest pain comes back go to ED or call ambulance Severe asthma 09/24/2023 Onychomycosis 05/29/2023 Viral upper respiratory tract infection 05/29/20 Assessment & Plan (05/29/2023 11:26 AM EDT): Rest drink plenty of fluids Generalized abdominal pain 02/26/2023 Assessment & Plan (02/26/2023 12:21 PM EDT): I advise patient to avoid NSAIDs, spicy and acid food, I advise to eat at the same time every day, I advise to elevate the head of the bed and take medications as prescribe He is already a GI patient he will call for a sooner appointment His diabetes is well control I will discontinue acarbose to see if this helps with this problem Psoriasis 02/26/2023 Assessment & Plan (02/26/2023 12:24 PM EDT): Patient will be seen by derm Chronic pain of both knees 12/08/2022 Chronic bronchitis 10/24/2022 Assessment & Plan (09/24/2023 11:43 AM EST): Patient has some wheezing today I advise to use his rescue inhaler as needed, c/w maintenance treatment and f/u with specialist Assessment & Plan (12/27/2022 2:11 PM EDT): I will prescribe for patient a nebulizer machine, it will be beneficial so that patient can avoid emergency room visits Assessment & Plan (10/24/2022 12:00 PM EST): No recent exacerbation in a month. Declined to start more inhalers. Counseled to quit smoking. continue advair BID and Proair PRN Pt will have Covid booster today. Increased urinary frequency 10/24/2022 Assessment & Plan (10/24/2022 12:05 PM EST): Order UA, R/o uti no other symptoms at this time. Most likely BPH, order PSA. Recommended tight control of DM. Primary osteoarthritis of both knees 09/19/2022 Assessment & Plan (09/19/2022 1:51 PM EST): -Counseled to use Tylenol BID PRN and reconsult PRN. Intrinsic eczema 08/24/2022 Assessment & Plan (09/19/2022 1:48 PM EST): Both ears and lower abdomen,, improving. -continue betamethasone cream + Lactin cream PRN. -FU next month and will decide on dermatology referral or not. Assessment & Plan (08/31/2022 9:44 PM EST): On both ears and lower abdomen. Mild improvement on betamethasone. RO psoriasis, refer to dermatology. Assessment & Plan (08/24/2022 3:38 PM EST): On both ears. Treat with betamethasone cream bid and fu in 1w Trauma of chest 08/24/2022 Assessment & Plan (08/24/2022 3:41 PM EST): CXR and ribs Xray wnl RO liver contusion due to persistent pain Take Tylenol and diclofenac gel as above Muscular chest pain 08/24/2022 Assessment & Plan (08/24/2022 3:37 PM EST): Sp fall, Use diclofenac and Tylenol as above Pre-op evaluation 08/24/2022 Assessment & Plan (08/31/2022 9:52 PM EST): Case discussed with cardiology (Dr Gaytan and Miroslava Nam), no need to adjust any medication or further cardiac work up at this time. Patient hemodynamically and clinically stable since last cardio appt. Continue meds as above including brilinta and ASA on the day of the procedure. Given that his otitis externa is partially treated, his surgery should be postponed until after he completes abs 09/07/22. I will see him in 2w to complete clearance. He will take all his medications on the day of surgery, except Acarbose, Zetia, Theophylline and Trulicity if needed which will be taken AFTER procedure when he tolerates PO. Assessment & Plan (08/24/2022 3:51 PM EST): 67 yo patient with multiple medical conditions here for preop evaluation. Most of his medical conditions are stable enough, however his otitis should be cleared before procedure due to risk of infection. He will fu with us next week. He is a high risk patient due to Insulin use. His Diabetes is optimally controlled. He also has ischemic heart disease which has been stable for >6m He's undergoing a low risk procedure. -FU in 1w for clearance -Called cardiology to advise on meds including Brilinta or other perioperative management. Age-related cataract of both eyes 08/24/2022 Assessment & Plan (09/19/2022 1:50 PM EST): -Surgery needs to be rescheduled agrees to plan of care -I will call opthalmology office to reschedule and FU with the patient for further appointment. Assessment & Plan (08/24/2022 3:41 PM EST): Undergoing cataract surgery Otitis externa of both ears 08/24/2022 Assessment & Plan (08/31/2022 9:59 PM EST): Improving, significant erythema still remaining. Continue costisporin 7 more days + betamethasone cream for eczematous lesions. Tight control of DM Assessment & Plan (08/24/2022 3:39 PM EST): Serous. Use cortisporin drops RUQ pain 08/24/2022 Assessment & Plan (08/31/2022 9:40 PM EST): [place] [facility] [place], a VM had been left in his phone. No clinical changes, overall feels well Continue diclofenac gel prn + avoid lying on that side + rest Assessment & Plan (08/24/2022 3:35 PM EST): Sp fall on 08/11/22, Xrays of the ribs and CXR were neg fracture RO liver contusion/hematoma. 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 Continue treatment plan per Cardio and PCP instruction. Encouraged to quit smoking Assessment & Plan (09/24/2023 11:30 AM EST): EKG will be order today I will refill his nitroglycerin If chest pain comes back I advise to go to ED or call ambulance Assessment & Plan (12/08/2022 11:17 AM EDT): Continue to follow with cardiology he was seen yesterday by them 12/07/22 he has being stable with current regimen Assessment & Plan (08/31/2022 9:43 PM EST): Has stable angina, no significant changes after most recent cardiology visit on 05/2022. Continue asa, atorvastatin, brilinta, isosorbide,losartan, metoprolol, ranexa. Counseled to quit smoking. FU with cardiology No med changes for cataract surgery. Treat angina with topical NTG per anethesia Migraine without aura, not refractory 08/22/2022 Subcapsular hemorrhage of spleen 08/22/2022 Alcoholism 02/19/2018 Smoker 02/19/2018 Assessment & Plan (10/24/2022 12:06 PM EST): Counseled pt to cut down smoking. He declined nicotine replacement therapy. Assessment & Plan (08/24/2022 3:39 PM EST): Encouraged to quit. Use nicoderm patch 14mcg and fu w PCP Stimulant dependence 02/19/2018 S/P CABG (coronary artery bypass graft) 01/03/20 18 HTN (hypertension), benign 06/20/2017 Assessment & Plan (07/15/2024 11:36 AM EST): I advised: - Aerobic exercise to reduce BP. Initial goal of 30 min walk 3-5x/week. Increase as tolerated. - low-sodium diet (goal: <2g/day) and heart healthy diet such as DASH to reduce BP and prevent ASCVD. - Home BP monitoring 1-2 x day with goal of <140/90. - Seek immediate medical attention for chest pain, palpitations, SOB, syncope, or sudden changes in mental status. - Do not change or discontinue current prescriptions without first consulting health care provider Assessment & Plan (04/15/2024 4:31 PM EDT): Maintenance: BMP: up to date Lipid Panel: up to date ASCVD Risk:patient is high risk he even has CAD, stents and has had multiple cardiac caths, he states that atorvastatin dose is to high and is making his mind crazy he will neither lower his medication or he will stop completely I told him I will go down on dose to 40mg daily and I advise to please talk to his psychiatrist I also advise: - Aerobic exercise to reduce BP. Initial goal of 30 min walk 3-5x/week. Increase as tolerated. - low-sodium diet (goal: <2g/day) and heart healthy diet such as DASH to reduce BP and prevent ASCVD. - Home BP monitoring 1-2 x day with goal of <140/90. - Seek immediate medical attention for chest pain, palpitations, SOB, syncope, or sudden changes in mental status. - Do not change or discontinue current prescriptions without first consulting health care provider Assessment & Plan (10/23/2023 2:24 PM EST): Elevated BP today Pt is currently taking prednisone Pt seems to miss meds occassionally Encouraged to take meds Encouraged to quit smoking and lifestyle mods Assessment & Plan (09/24/2023 11:28 AM EST): Maintenance: BMP: up to date Lipid Panel: up to date ASCVD Risk: on atorvastatin 80mg and ASA 81mg daily -I advise to take his blood pressure medication every day without missing any dose - Aerobic exercise to reduce BP. Initial goal of 30 min walk 3-5x/week. Increase as tolerated. - low-sodium diet (goal: <2g/day) and heart healthy diet such as DASH to reduce BP and prevent ASCVD. - Home BP monitoring 1-2 x day with goal of <140/90. - Seek immediate medical attention for chest pain, palpitations, SOB, syncope, or sudden changes in mental status. - Do not change or discontinue current prescriptions without first consulting health care provider Assessment & Plan (05/29/2023 11:25 AM EDT): - Aerobic exercise to reduce BP. Initial goal of 30 min walk 3-5x/week. Increase as tolerated. - low-sodium diet (goal: <2g/day) and heart healthy diet such as DASH to reduce BP and prevent ASCVD. - Home BP monitoring 1-2 x day with goal of <140/90. - Seek immediate medical attention for chest pain, palpitations, SOB, syncope, or sudden changes in mental status. - Do not change or discontinue current prescriptions without first consulting health care provider Assessment & Plan (02/26/2023 12:21 PM EDT): - Aerobic exercise to reduce BP. Initial goal of 30 min walk 3-5x/week. Increase as tolerated. - low-sodium diet (goal: <2g/day) and heart healthy diet such as DASH to reduce BP and prevent ASCVD. - Home BP monitoring 1-2 x day with goal of <140/90. - Seek immediate medical attention for chest pain, palpitations, SOB, syncope, or sudden changes in mental status. - Do not change or discontinue current prescriptions without first consulting health care provider Assessment & Plan (12/08/2022 11:12 AM EDT): - Aerobic exercise to reduce BP. Initial goal of 30 min walk 3-5x/week. Increase as tolerated. - low-sodium diet (goal: <2g/day) and heart healthy diet such as DASH to reduce BP and prevent ASCVD. - Home BP monitoring 1-2 x day with goal of <140/90. - Seek immediate medical attention for chest pain, palpitations, SOB, syncope, or sudden changes in mental status. - Do not change or discontinue current prescriptions without first consulting health care provider Assessment & Plan (08/31/2022 9:41 PM EST): Significantly improved. No change in meds. Assessment & Plan (08/24/2022 3:37 PM EST): Uncontrolled today, likely related to pain Treat pain as above Continue Metorprolol, amlodipine and fu in 1w. Benign prostatic hyperplasia 06/20/2017 Benzodiazepine dependence, continuous 06/20/2017 Chronic low back pain 06/20/2017 COPD exacerbation 06/20/2017 Assessment & Plan (10/23/2023 2:23 PM EST): Dxd with COVID 10/18/23 Given pred x5days no paxlovid, will extend pred x2days pulmo contacted given elisa tomirrow encouraged to stpop smoking hesistant agree ian patch 6hs current inhaler Assessment & Plan (09/19/2022 1:50 PM EST): -Use albuterol inhaler 2 puff q4 hours for the next 2 days and then PRN -Reconsult PRN worsening SOB, no improvement of cough, fever, weakness or change in mental status. Chronic pulmonary embolism 06/20/2017 Hyperlipidemia 06/20/2017 Edentulous 06/20/2017 Paresthesia of upper limb 06/20/2017 Type 2 diabetes mellitus 06/20/2017 Assessment & Plan (07/15/2024 11:37 AM EST): Diabetes is: controlled - Lab Results Component Value Date HGBA1C 7.1 (A) 07/15/2024 HGBA1C 8.0 (A) 04/14/2024 HGBA1C 7.7 (A) 09/24/2023 - Lab Results Component Value Date MICROALBUR 2.2 09/15/2020 CREATININE 1.21 01/03/2024 -Changes: none - Diabetic eye exam:up to date - Diabetic foot exam:up to date - Continue lifestyle modifications - Continue current medications - Follow up: 3 months Assessment & Plan (04/15/2024 4:35 PM EDT): Diabetes is: not controlled - Lab Results Component Value Date HGBA1C 8.0 (A) 04/14/2024 HGBA1C 7.7 (A) 09/24/2023 HGBA1C 7.4 (A) 05/29/2023 - Lab Results Component Value Date MICROALBUR 2.2 09/15/2020 CREATININE 1.21 01/03/2024 -Changes: extensive diet counseling done today - Diabetic eye exam:up to date - Diabetic foot exam:new referral today again - Continue lifestyle modifications - Continue current medications - Follow up: 3 months Assessment & Plan (10/23/2023 3:22 PM EST): Continue treatment plan per PCP. On prednisone BS elevated Assessment & Plan (09/24/2023 11:41 AM EST): - Lab Results Component Value Date HGBA1C 7.7 (A) 09/24/2023 HGBA1C 7.4 (A) 05/29/2023 HGBA1C 6.8 (A) 12/08/2022 - Lab Results Component Value Date MICROALBUR 2.2 09/15/2020 CREATININE 0.94 07/17/2023 - Diabetic eye exam:up to date - Diabetic foot exam:up to date - Continue lifestyle modifications - Continue current medications Assessment & Plan (05/29/2023 11:26 AM EDT): - Lab Results Component Value Date HGBA1C 7.4 (A) 05/29/2023 HGBA1C 6.8 (A) 12/08/2022 HGBA1C 7.1 (A) 08/24/2022 - Lab Results Component Value Date MICROALBUR 2.2 09/15/2020 CREATININE 1.22 08/21/2022 - Diabetic eye exam:patient will call for his appointment - Diabetic foot exam: new referral today - Continue lifestyle modifications - Continue current medications Assessment & Plan (02/26/2023 12:22 PM EDT): Lab Results Component Value Date HGBA1C 6.8 (A) 12/08/2022 HGBA1C 7.1 (A) 08/24/2022 HGBA1C 7.2 (H) 09/15/2020 - Lab Results Component Value Date MICROALBUR 2.2 09/15/2020 CREATININE 1.22 08/21/2022 - Diabetic eye exam: up to date - Diabetic foot exam: up to date - Continue lifestyle modifications - I discontinue acarbose continue with rest of medications Assessment & Plan (12/08/2022 11:13 AM EDT): A1c 6.9 today - Lab Results Component Value Date HGBA1C 7.1 (A) 08/24/2022 HGBA1C 7.2 (H) 09/15/2020 - Lab Results Component Value Date MICROALBUR 2.2 09/15/2020 CREATININE 1.22 08/21/2022 - Diabetic eye exam: referral today - Diabetic foot exam: done today - Continue lifestyle modifications - Continue current medications Assessment & Plan (10/24/2022 12:06 PM EST): Better controlled, due for A1C in 4-6 weeks. Continue trulicity 0.75 + Acarbose before meals + Lantus 50 units daily. Order labs and FU with PCP in 6-8 weeks. Assessment & Plan (08/24/2022 3:38 PM EST): Fairly ontrolled. A1c is at goal. Continue on Acarbose, Lantus and Trulicity Counseled re more frequent low calorie/carb meals. Check fgstk xxx daily Encouraged physical activity as tolerated. FU in x months. Cocaine dependence in remission 02/21/2017 Mood disorder 02/21/2017 Opioid dependence in remission 02/21/2017 Encounters Date Type Department Care Team Description 10/15/2024 Refill [facility] [address] [place] [address] Susie Park MD 10/15/2024 Refill [facility] [address] [place] [address] Susie Park MD 09/18/2024 Refill [facility] [address] [place] [address] Susie Park MD Primary osteoarthritis of both knees 09/17/2024 Refill [facility] [address] [place] [address] Susie Park MD 09/17/2024 Refill [facility] [address] [place] [address] Susie Park MD 09/03/2024 Orders Only GENERIC EXTERNAL DATA DEPARTMENT Provider, Generic External Data 08/19/2024 Refill [facility] [address] [place] [address] Susie Park MD 08/19/2024 Refill [facility] [address] [place] [address] Susie Park MD 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 bernice fied surface antigen) 04/23/2012 Moderna Covid-19 Vaccine 6+ Bivalent 10/24/2022 Pertussis 08/31/2009,08/18/2009 Pfizer Covid-19 Vaccine 12+ 05/16/2024 Pneumococcal Conjugate PCV 20 12/08/2022 Pneumococcal Polysaccharide PPSV23 02/09/2009 TD (adult), 2 Lf tetanus tox oid, preservative free, adsorbed 02/09/2009 Tdap 06/20/2017 Zoster, Recombinant 02/19/2023 Social History Tobacco Use Types Packs/Day Years Used Date Smoking Tobacco: Every Day Cigarettes Passive Smoke Exposure: Current Smokeless Tobacco: Never Tobacco Cessation:Ready to Q uit: Not Asked; Counseling Given: Not Answered Alcohol Use Standard Drinks/Week Comments Yes 0 (1 standard drink = 0.6 oz pur e alcohol) Rare Depression Answer Date Recorded Patient Health Questionnaire-9 Score 9 04/14/2024 Patient Health Questionnaire-9 Score 9 04/14/2024 Last PHQ-9: Questionnaire Data Not on file 0 04/14/2024 Housing Stability Answer Date Recorded What is your housing situation today? I do not have housing (Staying with others, in a hotel, in a fdc, living outside on the street, on a beach, in a car, or in a park 07/15/[address] you li ve. Do you have problems with any of the following? None of the above 07/15/2024 Food Insecurity Answer Date Recorded Within the past 12 months, y ou worried that your food would run out before you got money to buy more: Sometimes True 2023 Within the past 12 months,th e food you bought just didn't last and you didn't have enough money to get more: Sometimes True 07/15/2024 Transportation Answer Date Recorded In the past 12 months, has l ack of transportation kept you from medical appts, meetings, work or from getting things needed for daily living? Yes, it has kept me from medical appointments or getting medications. 07/15/2024 Utilities Answer Date Recorded In the past 12 months, has t he electric, gas, oil or water company threatened to shut off services in your home? No 09/24/2023 Depression Answer Date Recorded Patient Health Questionnaire-2 Score 1 04/14/2024 Internet Access Answer Date Recorded Internet Access Q1 Yes 07/15/2024 Internet Access Q2 Not on file 07/15/2024 Sex and Gender Information Value Date Recorded Sex Assigned at Male 06/26/2022 10:20 AM EDT Legal Sex Male 10:20 AM EDT Gender Identity Male 06/26/2022 10:20 AM EDT Sexual Orientation Choose not to disclose 2021 10:20 AM EDT Last Filed Vital Signs Vital Sign Reading Time Taken Comments Blood Pressure 124/85 07/15/2024 10:36 AM EST Pulse 80 07/15/2024 10:36 AM EST Temperature 36.1 ??C (96.9 ??F) 07/15/2024 1 0:36 AM EST Respiratory Rate 20 07/15/2024 10:3 6 AM EST Oxygen Saturation 98% 07/15/2024 10: 36 AM EST Inhaled Oxygen Concentration - - Weight 80.6 kg (177 lb 12.8 oz) 024 10:36 AM EST Height 167.6 cm (5' 6 ) 07/15/2024 10:3 6 AM EST Body Mass Index 28.7 07/15/2024 10:36 AM EST Plan of Treatment Health Maintenance Due Date Last Done Comments CT Colonography 1955 FIT DNA/Cologuard 1955 FIT 1955 FOBT 1955 Sigmoidoscopy 1955 RSV Patients and Patients Aged 60 years or older (1 - Risk 60-74 years 1-dose series) 2015 Diabetes: Urine Protein Screening 09/15/2021 09/15/2020 Zoster Vaccines (2 of 2) 04/16/2023 02/19/2023 Eye Exam 05/15/2023 05/15/2022 Diabetes: Foot Exam 12/09/2023 12/08/2022, Influenza Vaccine (#1) 2024 04/23/2012, 2010 Depression Monitoring (PHQ-9) 10/15/2024 04/14/2024, 04/14/2024 Diabetes: Hemoglobin A1C 10/15/2024 024, 04/14/2024, 09/24/2023, Additional history exists Depression Screening 04/14/2025 04/14/2024, 04/14/20 24 Lipid Panel 04/14/2025 04/14/2024, 03/27, 01/19/2021, Additional history exists Tobacco Screening 04/14/2025 04/14/2024 Alcohol/Substance Use Screening 07/15/2025 07/15/2024 SDOH Screening 07/15/2025 07/15/2024 Colonoscopy 04/12/2027 Colorectal Cancer Screening 04/12/2027 DTaP/Tdap/Td Vaccines (2 - Td or Tdap) 06/20/2027 06/20/2017, 02/09/2009 Hepatitis A Vaccines Aged Out 12/16/2008, 06/17/20 08 No longer eligible based on patient's age to complete this topic Hepatitis B Vaccines Completed 12/16/2008, 07/22/2008, 06/17/2008 Pneumococcal Vaccine: 50+ Years Completed 12/08/2022, 02/09/2009 Hepatitis C Screening Completed 03/12/2023 COVID-19 Vaccine Completed 05/16/2024, , 07/15/2021, Additional history exists HIB Vaccines Aged Out No longer eligi ble based on patient's age to complete this topic HPV Vaccines Aged Out No longer eligi ble based on patient's age to complete this topic IPV Vaccines Aged Out No longer eligi ble based on patient's age to complete this topic Meningococcal Vaccine Aged Out No angeline marge eligible based on patient's age to complete this topic RSV under 20 months Aged Out No longe r eligible based on patient's age to complete this topic Rotavirus Vaccines Aged Out No longer eligible based on patient's age to complete this topic Procedures Procedure Name Priority Date/Time Associated Diagnosis Comments CYTOPATH-CELL ENHANCED Routine 09/03/2024 4:51 PM EST POCT GLYCATED HEMOGLOBIN, TOTAL Routine 07/15/2024 10:38 AM EST Type 2 diabetes mellitus with other specified complication, with long-term current use of insulin ([facility]) LIPID PANEL, STANDARD Routine 04/14/2024 12:18 PM EDT HEPATITIS C ANTIBODY REFLEX Routine 03/12/2023 11:45 AM EDT ALBUMIN, RANDOM URINE W/CREATININE Routine 09/15/2020 8:43 AM EST from Last 3 Months or Most Recently Relevant to Health Maintenance Results * Cytopath-cell enhanced (09/03/2024 4:51 PM EST) 09/03/2024 4:51 PM EST 09/05/2024 9:00 AM EST [facility] - 09/09/2024 12:27 PM EST ----- ------- Name: Elio Calles ? Age/Sex: 69/M ? : 1955 Unit#: [id number] ?? Attend Dr: Ana Langley-BC ?Re09/03/24 ?Status: DEP REF ? Location: HO.LNP ?Disch: ? ----- ------- SPEC : [id number] ?RECD: 09/05/24 ? STATUS: ??SOUT ? REQ NUM: [id number] ? JANI: 09/03/24-1650 ? SUBM DR: Ana Langley HAND POTTER-BC ? ENTERED: ??09/05/24 ?SP TYPE: Cytology ? OTHR DR: Susie Park MD ? ORDERED: ??Cyto-enhanced ? Diagnosis ?? Urine: ??Atypical urothelial cells. ? COMMENT: ??Examination of a monolayer preparation slide shows many benign squamous cells, ?? occasional benign urothelial cells, and few atypical urothelial cells with increased ?? nuclear:cytoplasmic ratios. ??There are also few inflammatory cells, and occasional red ?? blood cells. ?Clinical History Encounter for screening, unspecified ? Material Received ?? Urine ? Gross Description Received is 48 cc of clear light yellow fluid from which a ThinPrep slide is prepared. Copies To: ?? Susie Park MD ?? [facility] ?? [address] ?? [place] [address] ?? [phone] ?? Ana Langley [facility]- ?? [facility] ?? [address] [place] [address] Dr. Mcmahon ?? [place] [address] ?? [phone] ?? [email or web address] ----- ------- Signed (signature on file) Jessica Blackwell 09/09/247 ? ----- ------- ? END OF REPORT ? us Generic External Data Provider LAB CYTOLOGY AMIRAH CLAY Final Result [facility] [address] [place] [address] [phone] * (ABNORMAL) POCT HGB A1C (07/15/2024 10:38 AM EST) Hemoglobin A1C 7.1(A) 4.0 - 6.0 % QC Media Lot # [id number] Lot# Expiration Date [id number] Blood 07/15/2024 10:3 8 AM EST us Susie Cintron MD POINT OF CARE TEST EN TER/EDIT ORDERABLES Final Result * (ABNORMAL) Lipid Panel, Standard (04/14/2024 12:18 PM EDT) Triglycerides 154(H) <150 mg/dL [facility] Comment:Desirable Triglyceri de: less than 150 mg/dLBorderline High Triglyceride 150-199 mg/dLHigh Triglyceride: 200-499 mg/dLVery High Triglyceride: greater than or equal to 5OO mg/dL Cholesterol 230(H) <200 mg/dL [facility] Comment:Desirable Cholestero l: less than 200 mg/dLBorderline High Cholesterol: 200-239 mg/dLHigh Cholesterol: greater than 239 mg/dL LDL Cholesterol Calculated 159(H) <100 mg/dL [facility] Comment:Desirable LDL: less than 100 mg/dLNear Optimal/Above Optimal LDL: 110- 129 mg/dLBorderline High LDL: 130-159 mg/dLHigh LDL: 160-189 mg/dLVery High LDL: greater than or equal to 190 mg/dL HDL Cholesterol 41 >40 mg/dL [facility] Comment:Desirable HDL: great er than 40 mg/dL Note: This HDL assay may give artificially low results in patients with liver disease. 04/14/2024 12:1 8 PM EDT 04/14/2024 1:15 PM EDT us Generic External Data Provider LAB BLOOD ORDERAB LES Final Result Performing Organization Address City/State/[facility] Co de Phone Number [facility] [address] [place] [address] [phone] * Hepatitis C Antibody Reflex (03/12/2023 11:45 AM EDT) Hepatitis C Antibody Nonreactive Nonreactive [facility] Comment:Antibodies to HCV no t detected; does not exclude early acuteHCV infection. 03/12/2023 11:4 5 AM EDT 03/12/2023 1:40 PM EDT us [facility] External Provider LAB BLO OD ORDERABLES Final Result Performing Organization Address [facility] de Phone Number [facility] [address] [place] [address] [phone] * ALBUMIN, RANDOM URINE W/CREATININE (09/15/2020 8:43 AM EST) Pathologist [facility] Microalbumin Urine 2.2 See Note: mg/dL [facility] Comment: Reference Range: ?? Reference Range Not established Microalb/Creat Ratio 15 <30 mcg/mg creat [facility] Comment: ?? The ADA defines abnormalities in albumin excretion as follows: ?? Category ? Result (mcg/mg creatinine) ?? Normal ?<30 Microalbuminuria ? 30-299 ?? Clinical albuminuria ?? > OR = 300 ?? The ADA recommends that at least two of three specimens collected within a 3-6 month period be abnormal before considering a patient to be within a diagnostic category. Creatinine, Urine 151 20 - 320 mg/dL [facility] 09/15/2020 8:43 AM EST us Susie Cintron MD LAB URINE ORDERABLES Final Result Performing Organization Address [facility] Co de Phone Number [facility] [address] from Last 3 Months or Most Recently Relevant to Health Maintenance Insurance [facility] Care Teams Planner Internship Relationship Specialty Start Date End Date Susie Park MD [address] [place] [phone] PCP - General Family Medicine 07/08/18
--- OUTSIDE RECORDS SUMMARY | 2024-10-29 10:48 | XMS_ITS | Encounter Summary ---
Author Organization [employer] Address [address] [facility] [address] [place] [address] Care Team Providers Care Truckman Name Role Phone Susie Park MD Primary Care Provide r Reason for Visit * Reason Comments Med Refill Encounter Details Date Type Department Care Team (Late st Contact Info) Description 09/17/2024 Refill [facility] & PEDS [address] [place], [place] [phone] Susie Park MD [address] [place] [address] Social History Tobacco Use Types Packs/Day Years [...] with others, in a hotel, in a mcfp, living outside on the street, on a [...] Assessment Noted Time PHQ-9 Depression Total Score: 9 04/14/20 24 10:39 AM EDT documented as of this encounter Care Teams Truckman Relationship Specialty Start Date End Date Susie Park MD [address] [place] [address] PCP - General Family Medicine 07/08/18 documented as of this encounter
--- OUTSIDE RECORDS SUMMARY | 2024-10-29 10:48 | XMS_ITS | Encounter Summary ---
Author Organization [employer] Address [address] [facility] [address] [place] [address] Care Team Providers Care Thoracic Medicine Physician Name Role Phone Susie Park MD Primary Care Provide r Reason for Visit * Reason Comments Med Refill Encounter Details Date Type Department Care Team (Late st Contact Info) Description 10/15/2024 Refill [facility] CH[facility] MED & PEDS [address] [place], [place] [phone] Susie Park MD [address] [place] [address] Social History Tobacco Use Types Packs/Day Years [...] with others, in a hotel, in a retirement, living outside on the street, on a [...] documented as of this encounter Care Teams Thoracic Medicine Physician Relationship Specialty Start Date End Date Susie Park MD [address] [place] [address] PCP - General Family Medicine 07/08/18 documented as of this encounter
--- OUTSIDE RECORDS SUMMARY | 2024-10-29 10:48 | XMS_ITS | Encounter Summary ---
Author Organization [employer] Address [address] [facility] [address] [place] [address] Care Team Providers Care Inspector Bicycle Name Role Phone Susie Park MD Primary Care Provide r Reason for Visit * Reason Comments Med Refill Encounter Details Date Type Department Care Team (Late st Contact Info) Description 10/15/2024 Refill [facility] MED & PEDS [address] [place], [place] [phone] Susie Park MD [address] [place] [address] Social History Tobacco Use Types Packs/Day Years [...] with others, in a hotel, in a half-way, living outside on the street, on a [...] documented as of this encounter Care Teams Inspector Bicycle Relationship Specialty Start Date End Date Susie Park MD [address] [place] [address] PCP - General Family Medicine 07/08/18 documented as of this encounter
--- OUTSIDE RECORDS SUMMARY | 2024-10-29 10:48 | XMS_ITS | Encounter Summary ---
Author Organization [employer] Address [address] [facility] [address] [place] [address] Care Team Providers Care Corporate Tax Manager Name Role Phone Susie Park MD Primary Care Provide r Reason for Visit * Reason Comments Med Refill Encounter Details Date Type Department Care Team (Late st Contact Info) Description 08/19/2024 Refill [facility] MED & PEDS [address] [place], [place] [phone] Susie Park MD [address] [place] [address] Social History Tobacco Use Types Packs/Day Years [...] with others, in a hotel, in a group home, living outside on the street, on a [...] documented as of this encounter Care Teams Corporate Tax Manager Relationship Specialty Start Date End Date Susie Park MD [address] [place] [address] PCP - General Family Medicine 07/08/18 documented as of this encounter
--- OUTSIDE RECORDS SUMMARY | 2024-10-29 10:48 | XMS_ITS | Encounter Summary ---
Author Organization [employer] Address [address] [facility] [address] [place] [address] Care Team Providers Care Computer Systems Security Analyst Name Role Phone Susie Park MD Primary Care Provide r Encounter Details Date Type Department Care Team ([facility] st Contact Info) Description 08/30/2022 Abstract [facility] MED[facility]INE [address] [place] [phone] Susie Park MD [address] [place] [address] Social History Tobacco Use Types Packs/Day Years Used Date Smoking Tobacco: Every Day Cigarettes Smokeless Tobacco: Never Alcohol Use Standard Drinks/Week Comments Yes 0 (1 standard drink = 0.6 oz pur e alcohol) Rare Sex and Gender Information Value Date Recorded [...] suspected to have Coronavirus/COVID-19? No / Unsure 08/31/2022 8:56 AM EST documented as of this encounter Plan of Treatment Not on file documented as of this encounter Visit Diagnoses Not on filedocumented in this encounter Additional Health Concerns Assessment Noted Time PHQ-9 Depression Total Score: 17 12/2 022 9:43 AM EST documented as of this encounter Care Teams Computer Systems Security Analyst Relationship Specialty Start Date End Date Susie Park MD [address] [place] [address] PCP - General Family Medicine 07/08/18 documented as of this encounter
--- OUTSIDE RECORDS SUMMARY | 2024-10-29 10:48 | XMS_ITS | Data Portability ---
Author Organization [place] - [facility], Allergy Address [address] [facility] [address] [place] [address] Care Team Providers Care Unhairing Inspector Name Role Phone JEFAGUILAVICTORIANO SHAH Primary Care Provider [phone] Assessment Encounter Date Assessment Date Assessment LastModified by Organization Details LastModified Time 06/19/2024 06/19/2024 Physical exam reveals bilateral cerumen impaction and psoriatic plaque in the conchal bowl of the left ear. Recommend topical steroid therapy for 2 weeks then as needed for flaking, plaques, or itching. Discussed with patient the importance of using the topical steroids for no more than 2 weeks at a time. Patient to follow-up in 3 months for re-evaluation and cerumen removal as needed. He understands to call in the interim with any issues that arise particularly change in hearing. Not available 06/19/2024 10:22:33 09/19/2024 09/19/2024 Patient presents for routine evaluation. Right ear found to have significant erythema and edema with purulent discharge. Left ear with impacted cerumen which was removed successfully to reveal healthy skin without evidence of otorrhea or flaking. Recommend Ciprodex eardrops to times daily for 14 days in the right ear only. Patient to return in 3 weeks to verify resolution, at which time we will update his audiometric testing if the infection has cleared. Patient understands to call in the interim with any worsening or development of new symptoms. Not available 09/19/2024 10:52:18 Plan of Treatment Reminders Order Date Submit Date Provider Last Modified By Organization Details Last Modified Time Details Appointments Establish ed 15 2024 01:00P Harmony MIRANDA PA-C Not available Not available Not available Lab None recorded. Referral None recorded. Procedures None recorded. Surgeries None recorded. Imaging None recorded. Medication Orders ciproflox acin 0.3 %-dexamet hasone 0.1 % ear drops,viet pension 2024 025 [facility]- , [address] [place], [place], [id number], 09/19/2024 10:42:25 fluocinol one acetonide oil 0.01 % ear drops 2023 024 [facility]- , [address] [place], [place], [id number], 06/19/2024 10:10:57 triamcino lone acetonide 0.1 % topical cream 2023 024 [facility]- , [address] [place], [place], [id number], 06/19/2024 10:11:01 Patient TargetsNo targets recorded. Patient Instructions Encounter Date Encounter Id Patient Instructions Last Modified By Organization Details Last Modified Time 02/15/2024 [id number] Patient presents for cerumen removal. Successfully removed bilaterally, which patient tolerated well. Otologic exam otherwise unremarkable. Patient reported hearing returned to baseline thereafter and declined audiometric testing. Return in 3-6 months for cerumen removal. Avoid Q-tips. Avoid or protect against loud noise. Recommend annual audiometric testing, sooner with perceived change. Patient understands to call sooner with any issues that arise. Not available 02/15/2024 13:26:31 Reason for Referral None Reported. Problems Name Problem SNOMED Code Status Onset Date Resolution Date Notes Provider Name and Address Organization Details Recorded Time Psoriasis 4055347 Active 2021 Psoriasis , unspecifi ed; Note: Date Diagnosed : 10/07/2021 1:51 PM (L40.9) Not Available [facility] 03:12:14 Bilateral diffuse otitis externa 13417127781 85304 Active 2022 Diffuse otitis externa, bilateral ; Note: Date Diagnosed : 12/19/2022 9:52 AM (H60.313) Not Available [facility] 4 03:12:13 Impacted cerumen in left ear 93962918365 16446 Active 2020 Impacted cerumen, left ear; Note: Date Diagnosed : 1 7:03 AM (H61.22) Not Available [facility] 4 03:12:13 Impacted cerumen in right ear 99688294920 32085 Active 2021 Impacted cerumen, right ear; Note: Date Diagnosed : 01/26/2022 1:41 PM (H61.21) Not Available [facility] 4 03:12:12 Impacted cerumen of bilateral ears 37236387681 06791 Active 2021 Impacted cerumen, bilateral ; Note: Date Diagnosed : 12/16/2021 1:50 PM (H61.23) Not Available [facility] 4 03:12:13 Diffuse otitis externa 91594966 Active 2022 Diffuse otitis externa, right ear; Note: Date Diagnosed : 1 2:49 PM (H60.311) ; Start Date : Diffuse otitis externa, left ear; Note: Date Diagnosed : 01/09/2023 10:45 AM (H60.312) Not Available [facility] 4 03:12:13 Chronic right myringiti s 93706260236 33573 Active 2020 Chronic myringiti s, right ear; Note: Date Diagnosed : 1 7:03 AM (H73.11) Not Available [facility] 4 03:12:14 Otorrhea of right ear 66294797622 44027 Active 2020 Otorrhea, right ear; Note: Date Diagnosed : 1 2:49 PM (H92.11) Not Available [facility] 4 03:12:14 Acute infective otitis externa 194585577 Active 2024 SANTA MIRANDA PA-C [address] [place] [address],[place] [address], [place], [address] , [place] - [facility] 5 10:40:43 Problem Notes None recorded. Procedures Surgical History Date Name Laterality Status Provider Name and Address Organization Details Recorded Time 5 Cerumen removal without microscope bilat completed S[facility]A MIRANDA [facility] [address] [facility],[address], [address], [place] - [facility] 09/19/2024 10:51:22 4 Cerumen removal without microscope bilat completed SANTA MIRANDA [facility] [address] [facility],[address], [address], [place] - [facility] 06/19/2024 10:21:03 4 Cerumen removal without microscope bilat completed SANTATEA MIRANDA [facility] [address] [facility],[address], [address], [place] - [facility] 02/15/2024 13:26:19 Imaging Results None recorded. Procedure Notes None recorded. Medical Equipment None Reported. Medications Name Sig Start Date Stop Date Status Note LastModified by Organization Details LastModified Time quetiapin e 25 mg tablet active Not Available Not Available Not Available terazosin 5 mg capsule active Not Available Not Available Not Available atorvasta tin 40 mg tablet active Not Available Not Available Not Available BD Alcohol Swabs active Not Available Not Available Not Available atorvasta tin 80 mg tablet TAKE 1 TABLET BY MOUTH EVERYDAY AT BEDTIME active Not Available Not Available No t Available nicotine 14 mg/24 hr daily transderm al patch 06/19 completed Not Available Not Available Not Available ipratropi um 0.5 mg-albute rol 3 mg (2.5 mg base)/3 mL nebulizat ion soln active Not Available Not Available Not Available albuterol sulfate 2.5 mg/3 mL (0.083 %) solution for nebulizat ion 06/19 completed Not Available Not Available Not Available azithromy tal 250 mg tablet 06/19 completed Not Available Not Available Not Available theophyll ine ER 400 mg tablet,ex tended release 24 hr active Not Available Not Available Not Available metoprolo l succinate ER 50 mg tablet,ex tended release 24 hr active Not Available Not Available Not Available tolterodi ne ER 4 mg capsule,e xtended release 24 hr active Not Available Not Available Not Available FreeStyle Lancets 28 gauge active Not Available Not Available Not Available prednison e 20 mg tablet active Not Available Not Available Not Available clonazepa m 1 mg tablet active Not Available Not Available Not Available acarbose 50 mg tablet 06/19 completed Medicati on ID: [id number] B rand Name: acarbose Send Method: E-Prescr ibed Sub s Allowed: subs OK Medic ationGen ericName : acarbose Not Available Not Available Not Available naproxen 250 mg tablet active Not Available Not Available Not Available amlodipin e 2.5 mg tablet active Not Available Not Available Not Available aspirin 81 mg tablet,de layed release TAKE 1 TABLET (81 MG) BY MOUTH IN THE MORNING active Not Available Not Available No t Available tramadol 50 mg tablet 06/19 completed Medicati on ID: [id number] B rand Name: tramadol Send Method: E-Prescr ibed Sub s Allowed: subs OK Medic ationGen ericName : tramadol Not Available Not Available Not Available quetiapin e 100 mg tablet 06/19 completed Medicati on ID: [id number] B rand Name: quetiapi ne Send Method: E-Prescr ibed Sub s Allowed: subs OK Medic ationGen ericName : quetiapi ne Not Available Not Available Not Available triamcino lone acetonide 0.1 % topical cream APPLY A THIN LAYER TO THE AFFECTED AREA(S) BY TOPICAL ROUTE 2 TIMES PER DAY FOR 2 WEEKS THEN NEEDED active Not Available Not Available No t Available Mineral Oil Heavy oral Apply 3 a small amount to affected area 06/19 completed Medicati on ID: [id number] D uration Value: 30 Brand Name: Mineral Oil Heavy Se nd Method: E-Prescr ibed Sub s Allowed: subs OK Speci al Instruct ion: 3 drops to each ear twice weekly at bedtime Medicati onGeneri cName: Mineral Oil Heavy Not Available Not Available Not Available acetamino phen ER 650 mg tablet,ex tended release active Not Available Not Available Not Available isosorbid e mononitra te ER 120 mg tablet,ex tended release 24 hr active Not Available Not Available Not Available methotrex ate sodium 2.5 mg tablet 06/19 completed Not Available Not Available Not Available tamsulosi n 0.4 mg capsule active Not Available Not Available Not Available Proctozon e-HC 2.5 % topical cream perineal applicato r Apply a small amount once a day 06/19 completed Medicati on ID: [id number] D uration Value: 14 Brand Name: hydrocor tisone 2.5% Sen d Method: E-Prescr ibed Sub s Allowed: subs OK Speci al Instruct ion: to external ears Med icationG enericNa me: hydrocor tisone 2.5% Not Available Not Available Not Available doxycycli ne monohydra te 100 mg capsule 06/19 completed Not Available Not Available Not Available calcipotr iene 0.005 % topical cream 06/19 completed Not Available Not Available Not Available clotrimaz ole-betam ethasone 1 %-0.05 % topical cream 1 a small amount 06/19 completed Medicati on ID: [id number] D uration Value: 14 Prescri bed By Name: HARIS Pulido nd Name: clotrima zole-bet amethaso ne Send Method: E-Prescr ibed Sub s Allowed: subs MONA Ball al Instruct ion: Apply with fingerti p to right external ear twice daily x 2 weeks Me dication GenericN yeison: clotrima zole-bet amethaso ne Not Available Not Available Not Available halobetas ol propionat e 0.05 % topical ointment 06/19 completed Not Available Not Available Not Available Tobrex 0.3 % eye ointment 11/04 completed Medicati on ID: [id number] P rescribe d By Name: HARIS Pulido nd Name: Tobrex S end Method: E-Prescr ibed Sub s Allowed: subs OK Speci al Instruct ion: Please bring to next appointm ent for applicat ion Medi cationGe nericNam e: Tobrex Not Available Not Available Not Available losartan 25 mg tablet active Not Available Not Available Not Available metoprolo l tartrate 50 mg tablet 06/19 completed Not Available Not Available Not Available nitroglyc carine 0.4 mg sublingua l tablet 06/19 completed Not Available Not Available Not Available docusate sodium 100 mg capsule active Not Available Not Available Not Available hydrocort isone 2.5 % topical cream Apply a small amount to affected area twice a day 06/19 completed Medicati on ID: [id number] D uration Value: 14 Brand Name: hydrocor tisone S end Method: E-Prescr ibed Sub s Allowed: subs OK Medic ationGen ericName : hydrocor tisone Not Available Not Available Not Available albuterol sulfate HFA 90 mcg/actua tion aerosol inhaler active Not Available Not Available Not Available hydrocort isone 2.5 % topical ointment Apply a small amount once a day 06/19 completed Medicati on ID: [id number] D uration Value: 14 Brand Name: hydrocor tisone 2.5% Sen d Method: E-Prescr ibed Sub s Allowed: subs OK Speci al Instruct ion: to external ears Med icationG enericNa me: hydrocor tisone 2.5% Med ication ID: [id number] D uration Value: 14 Brand Name: hydrocor tisone 2.5% Sen d Method: E-Prescr ibed Sub s Allowed: subs OK Speci al Instruct ion: to external ears Med icationG enericNa me: hydrocor tisone 2.5% Not Available Not Available Not Available doxycycli ne hyclate 100 mg tablet 06/19 completed Not Available Not Available Not Available loratadin e 10 mg tablet active Not Available Not Available Not Available gentamici n 0.1 % topical ointment 11/07 completed Medicati on ID: [id number] P rescribe d By Name: HARIS Pulido nd Name: gentamic in Send Method: E-Prescr ibed Sub s Allowed: subs OK Speci al Instruct ion: Bring to next appointm ent for applicat ion Medi cationGe nericNam e: gentamic in Not Available Not Available Not Available mometason e 0.1 % topical cream 06/19 completed Medicati on ID: [id number] D uration Value: 10 Prescri bed By Name: HARIS Pulido nd Name: mometaso ne Send Method: E-Prescr ibed Sub s Allowed: subs OK Speci al Instruct ion: Apply a small amount to external ear twice a day x 10 days Med icationG enericNa me: pratima ne Not Available Not Available Not Available One Daily Multivita min tablet active Not Available Not Available Not Available TobraDex 0.3 %-0.1 % eye drops,viet pension 06/19 completed Medicati on ID: [id number] D uration Value: 14 Brand Name: TobraDex Send Method: E-Prescr ibed Sub s Allowed: subs OK Speci al Instruct ion: Instill 4 drops in both ears BID for 14 days Med icationG enericNa me: TobraDex Not Available Not Available Not Available ezetimibe 10 mg tablet active Not Available Not Available Not Available ciproflox acin 0.3 %-dexamet hasone 0.1 % ear drops,viet pension Instill 4 drops twice a day by otic route for 14 days. active Not Available Not Available No t Available bupropion HCl XL 150 mg 24 hr tablet, extended release active Not Available Not Available Not Available fluocinol one acetonide oil 0.01 % ear drops INSTILL 3 DROPS INTO AFFECTED EAR(S) BY OTIC ROUTE 2 TIMES PER DAY FOR 2 WEEKS THEN NEEDED active Not Available Not Available No t Available FreeStyle Lite Strips active Not Available Not Available Not Available Lantus Solostar U-100 Insulin 100 unit/mL (3 mL) subcutane ous pen active Not Available Not Available Not Available ranolazin e ER 1,000 mg tablet,ex tended release,1 2 hr active Not Available Not Available Not Available diclofena c 1 % topical gel 06/19 completed Not Available Not Available Not Available mesalamin e ER 0.375 gram capsule,e xtended release 24 hr active Not Available Not Available Not Available Brilinta 90 mg tablet 06/19 completed Medicati on ID: [id number] B rand Name: Brilinta Send Method: E-Prescr ibed Sub s Allowed: subs OK Medic ationGen ericName : Brilinta Not Available Not Available Not Available UltiCare Pen Needle 32 gauge x 32 06/19 completed Not Available Not Available Not Available Anoro Ellipta 62.5 mcg-25 mcg/actua tion powder for inhalatio n active Not Available Not Available Not Available Trulicity 0.75 mg/0.5 mL subcutane ous pen injector active Not Available Not Available Not Available Brilinta 60 mg tablet 06/19 completed Not Available Not Available Not Available Narcan 4 mg/actuat ion nasal spray 2020 active Medicati on ID: [id number] B rand Name: Narcan S end Method: E-Prescr ibed Sub s Allowed: subs OK Medic ationGen ericName : Narcan Not Available Not Available Not Available Daily-Vit e (with folic acid) 400 mcg tablet active Not Available Not Available Not Available Vitals Date Recorded Body height Body mass index (BMI) Body weight Provider Name and Address Organization Details Last Updated DateTime 02/15/2024 167.64 cm 27.9 kg/m2 74166.48 g Kacey Reyes [place] - [facility] 02/15/2024 13:06:56 Date Recorded Body height Body mass index (BMI) Body weight Provider Name and Address Organization Details Last Updated DateTime 06/19/2024 167.64 cm 27.9 kg/m2 02619.48 g Alondra Márquez [place] - [facility] 06/19/2024 09:32:10 Date Recorded Body height Body mass index (BMI) Body weight Provider Name and Address Organization Details Last Updated DateTime 09/19/2024 167.64 cm 27.9 kg/m2 67105.48 g Mely Thornton [place] - [facility] 09/19/2024 10:34:07 Social History None recorded. Functional Status None recorded. Mental Status None recorded. Family History Nothing Reported. Medical History No medical history recorded. Past Encounters Encounter ID Performer Location Encounter Start Date Encounter Closed Date Diagnosis/Indication Diagnosis SNOMED-CT Code Diagnosis ICD10 Code Diagnosis Note [id number] STEPHANIA CORRIGAN MD [facility] [address] [address] 02/15/2024 12:43:54 02/15/2024 13:30:17 Impacted cerumen of bilateral ears [id number] 038778 H61.23 [id number] DAILY FUNES MD [facility] [address] [address] 06/19/2024 09:13:54 06/19/2024 10:12:40 Psoriasis 1812477 L40.9 Impacted c erumen of bilateral ears 0913018980 727422 H61.23 [id number] STEPHANIA CORRIGAN MD [facility] [address] [address] 09/19/2024 10:27:59 09/19/2024 10:47:34 Acute infective otitis externa 120506575 H60.391 Impacted c erumen of bilateral ears 2492132809 682264 H61.23 Health Concerns Section Related Observation LastModified by Organization Detai ls LastModified Time None Recorded Concern Status LastModified by Organization Details LastModified Time None Recorded Advance Directives Directive None Recorded Payers Encounter Date Sequence Insurance Name Policy Number Policy Ruiz Covered Member ID Ruiz Member ID Guarantor Name 02/15/2024 1 [facility] - DOS ON OR AFTER 2022 - MEDICARE [place]AGE [place]V ANTAGE - PPO) Elio Calles [id number] Elio Calles 06/19/2024 1 [facility] - DOS ON OR AFTER 2022 - [place] - [place]) Elio Calles [id number] Elio Calles 09/19/2024 1 [facility] - DOS ON OR AFTER 2022 - [place] RE[place] ANT[place] - [place]PO) Elio Calles [id number] Elio Calles Notes Date Note Type Note Provider Name and Address Organization Details Recorded Time 02/15/2024 text/html 68-year-old male presents for evaluation of the ears. Denies change in hearing, otalgia, otorrhea. Using Vaseline and keeping ears dry in the shower, denies Q-tip use. STEPHANIA CUNNINGHAM MD [address] [place] [address], [place], [address], [facility] 02/15/2024 16:47:54 06/19/2024 text/html 69-year-old male presents for evaluation of the ears. He reports dry flaky skin in the left greater than right ear that he digs out with a fingernail. He has a history of psoriasis that has been flaring up lately he does not see dermatology. He denies otalgia, otorrhea, and change in hearing. DAILY FUNES MD [address] [facility],[address], [address], [facility] 06/19/2024 17:32:09 09/19/2024 text/html 69-year-old male with history of psoriasis presents for evaluation of the ears. He suspects he is impacted with cerumen. He finds that the fluocinolone oil and the Lotrisone cream resolve his itching and flaking. He has not used them for more than 2 weeks in a row at any point. He denies change in hearing, otalgia, and otorrhea. STEPHANIA CUNNINGHAM MD [address] [facility],[place] [address], [place], [address], [facility] 09/19/2024 12:41:03
== END 2024-10-29 10:04 | disposition home or self-care (01) ==
PROVIDERS: PCP Internal Medicine; Visit Provider Internal Medicine Pulmonary Disease
DX: J44.9 Chronic obstructive pulmonary disease, unspecified (principal); G47.33 Obstructive sleep apnea (adult) (pediatric); Z99.89 Dependence on other enabling machines and devices; Z87.891 Personal history of nicotine dependence
CPT/HCPCS: 99214; G2211

== ENCOUNTER → 2024-10-29 09:30 | Outpatient (BNVA) | payer OTHER, SELFPAY | PROVIDERS: PCP Internal Medicine; Visit Provider Internal Medicine Pulmonary Disease | DX: J44.9 Chronic obstructive pulmonary disease, unspecified (principal); G47.33 Obstructive sleep apnea (adult) (pediatric); Z99.89 Dependence on other enabling machines and devices; F17.210 Nicotine dependence, cigarettes, uncomplicated | CPT/HCPCS: 99212 ==

== ENCOUNTER 2024-11-05 10:24 | Outpatient (AMB) | payer OTHER, SELFPAY ==
--- NOTE | 2024-11-05 10:37 | A.OFFVIS_ITS ---
Intake Visit Reasons: 2m/PVR Intake Note: Patient presents to office today for a 2 month follow up/PVR Urology Medications: Tolerodine Blood Thinner: Aspirin Allergy to Antibiotics: Penicillins * PVR: 50ml's Gamemaster Required: No Accompanied by: Self / Same As Patient Allergies Penicillins Allergy (Mild, Verified 11/05/24 20:59) RASH ciprofloxacin [From Cipro] Allergy (Unknown, Verified 11/05/24 20:59) RASH Medication List - Last Reconciled 11/05/24 by KISHORE Murray acetaminophen ER 650 mg PO Q8H albuterol sulfate 90 mcg/actuation (Ventolin HFA) 2 puffs inhalation Q6H PRN amlodipine 2.5 mg PO DAILY 90 days Anoro Ellipta 62.5-25 mcg/actuation (umeclidinium-vilanterol) 1 ea PO DAILY NS aspirin (Adult Low Dose Aspirin) 81 mg PO DAILY atorvastatin 80 mg PO DAILY blood sugar diagnostic (FreeStyle Lite Strips) As directed bupropion HCl XL 150 mg PO DAILY clonazepam 1 mg PO DAILY docusate sodium 100 mg PO BID dulaglutide (Trulicity) 1 ea subcut QWEEK ezetimibe 10 mg PO DAILY insulin glargine (Lantus Solostar U-100 Insulin) 50 units subcut QPM ipratropium-albuterol 0.5 mg-3 mg(2.5 mg base)/3 mL 3 mL inhalation Q4-6H PRN isosorbide mononitrate ER 120 mg PO QAM lancets (FreeStyle Lancets) As directed loratadine 10 mg PO DAILY losartan 25 mg PO DAILY mesalamine ER 1.5 grams (4 x 0.375 gram) PO QAM metoprolol succinate ER 50 mg PO DAILY mirabegron ER (Myrbetriq) 25 mg PO DAILY 30 days multivitamin with folic acid 400 mcg (Daily-Tiana (with folic acid)) tabs PO naproxen 250 mg PO BID PRN nebulizer and compressor As directed prednisone 40 mg (2 x 20 mg) PO DAILY quetiapine 25 mg PO TID ranolazine ER 1,000 mg PO BID 90 days theophylline ER 400 mg PO DAILY HPI Comments Details: Elio is a 69-year-old male patient of Dr.?Barciona Cintron. He has a past medical history of memory difficulties, hyperlipidemia, hypertension, COPD, arthritis, type 2 diabetes, coronary artery disease, and peripheral vascular disease. He presents to the office today for follow-up of his lower urinary tract symptoms. In discussion with the patient today he reports somewhat improvement in episodes of nocturia he had been experiencing with 2 mg of tolterodine daily however feels he was experiencing dry mouth and constipation. He reports nocturia continues up to 3 times per night. He has previously trialed Flomax and terazosin without improvement in lower urinary tract symptoms. Patient with a history of microscopic hematuria in the setting of nicotine dependence. We discussed at length potential causes for microscopic hematuria as well as further workup to include imaging and in office cystoscopy. We discussed atypical cytology 09/20 Atypical urothelial cells. Previous workup has included a retroperitoneal ultrasound 07/20 noting bilateral kidneys with no calculi, lesions, and or hydronephrosis. Left 1.7 cm benign simple appearing cyst which requires no imaging follow-up per radiology report. The bladder is well distended and normal. Pre void bladder volume is approximately 160 mL. Postvoid bladder volume is approximately 20 mL. Prostate measures 27 mL. He does report compliance with CPAP machine. In office urinalysis results reviewed with the patient today. PVR 50 mL. He denies incontinence, hematuria, dysuria, foul smelling urine, changes to urinary stream, flank pain, fever, and or chills. He does report a longstanding history of nicotine dependence since the age of 13. He reports typically smoking 1 pack per day however is down to approximately 7-10 cigarettes per day. We discussed importance of limiting/quitting for overall health and well-being however patient is not interested at this time. He otherwise offers no other issues or concerns at this time. PSA 04/19 0.9 PFSH Medical History Abnormal CT scan, gastrointestinal tract Memory difficulties On anticoagulant therapy On beta russ at home Angina of effort HLD (hyperlipidemia) HTN (hypertension) COPD (chronic obstructive pulmonary disease) Arthritis Diabetes mellitus, type 2 Coronary artery disease Dizziness Peripheral vascular disease Surgical History Hx of colonoscopy S/P cardiac catheterization (~12/2020) S/P cardiac cath (~04/2020) Stented coronary artery S/P cardiac cath (~08/2019) S/P CABG x 3 (~09/2018) H/O coronary artery bypass surgery Social History Household Members: Children Housing: House Alcohol intake: current Alcohol intake frequency: holidays/special occasions only Patient Tobacco Use Status: Current everyday Tobacco user Tobacco use type: Cigarette Cigarette Packs Per Day: 1 Cigarettes Per Day: 8 Advance Directives Date on File: 04/24/22 service: No Current occupational status: disabled Review of Systems Const Reports no additional complaints Eyes Reports no additional complaints ENT Reports no additional complaints and Reports as per HPI Card Reports as per HPI Resp Reports as per HPI GI Reports no additional complaints Reports as per HPI Musc Reports as per HPI Neuro Reports as per HPI Psych Reports as per HPI Endo Reports no additional complaints Prasanth/Lymph Reports no additional complaints Aller/Immun Reports no additional complaints Physical Exam Const General: cooperative, healthy appearing, comfortable, no acute distress, well developed, alert and awake Orientation/consciousness: patient oriented x3 HEENT Head: Yes normal to inspection, Yes normocephalic and Yes atraumatic Ears: hearing grossly normal bilaterally Eyes General: appearance normal, both eyes and all related structures Neck Neck: Yes normal visual inspection and Yes trachea midline Chest Chest palpation & inspection: normal inspection of the chest Resp Effort & Inspection: normal respiratory effort and able to speak in complete sentences Cardio Rate: regular rate GI Inspection: Yes normal to inspection General: Yes no CVA tenderness Back/Spine/Pelvis Back: no CVA tenderness Skin General skin exam: no rashes or lesions noted Neuro General: patient oriented x3 Extrem General: Yes normal to inspection Psych Appearance: grossly normal and well kempt Mental Status: mental status grossly normal Speech and movement: Normal speech and movement present and Clear speech present Affect: normal affect Attitude: cooperative Thought process: Normal thought process present Thought content: Normal thought content present Insight: Fair insight present (Psych) Judgement: Fair judgement present (Psych) Office Procedures Post Void Residual Post Residual Void Post Void Residual (PVR): 50 10517-Oytu Void Residual by ultrasound Results AMB Urinalysis, Automated UA Leukoctes 0 Shelia/uL Last Edit by Susi Sadler on 11/05/24 11:17 UA Nitrite Negative Last Edit by Crystal Sadler on 11/05/24 11:17 UA Urobilinogen 3.5 mg/dL Last Edit by Crystal Sadler on 11/05/24 11:17 UA Protein 0 mg/dL Last Edit by Crystal Sadler on 11/05/24 11:17 UA pH 5.5 Last Edit by Crystal Sadler on 11/05/24 11:17 UA Blood 10 Paulino/uL Last Edit by Susi Sadler on 11/05/24 11:17 UA Specific [place] 1.015 Last Edit by Crystal Sadler on 11/05/24 11:17 UA Ketone Negative Last Edit by Susi Sadler on 11/05/24 11:17 UA Bilirubin 0 mg/dL Last Edit by Susi Sadler on 11/05/24 11:17 UA Glucose 0 mg/dL Last Edit by Susi Sadler on 11/05/24 11:17 Results Reviewed Results Reviewed: Laboratory Last Values Urine pH (Auto) 5.5 11/05/24 10:38 Specific [place] (Auto) 1.015 11/05/24 10:38 Urine Protein (Auto) 0 mg/dL 11/05/24 10:38 Glucose (UA)(Auto) 0 mg/dL 11/05/24 10:38 Urine Ketones (Auto) Negative 11/05/24 10:38 Urine Blood (Auto) 10 Paulino/uL 11/05/24 10:38 Urine Nitrite (Auto) Negative 11/05/24 10:38 Urine Bilirubin (Auto) 0 mg/dL 11/05/24 10:38 Urine Urobilinogen (Auto) 3.5 mg/dL 11/05/24 10:38 Leukocyte Esterase (Auto) 0 Shelia/uL 11/05/24 10:38 Assessment & Plan Assessment & Plan (1) Microscopic hematuria: Code(s): R31.29 - Other microscopic hematuria Category: Medical (2) Personal history of nicotine dependence: Code(s): Z87.891 - Personal history of nicotine dependence Category: Medical (3) Abnormal cytology: Code(s): R89.6 - Abnormal cytological findings in specimens from other organs, systems and tissues Category: Medical (4) Nocturia: Code(s): R35.1 - Nocturia Category: Medical Plan In office urinalysis results reviewed with the patient today; as noted above; will send for urine cytology. PVR 50 mL Previous urine cytology results reviewed with the patient today; as noted above. Stop tolterodine. Start Myrbetriq as discussed and prescribed. We discussed at length potential causes of nocturia as well as microscopic hematuria We discussed further workup to include CT urogram and in office cystoscopy; patient will think about follow-up in office cystoscopy. We discussed importance of limiting/quitting nicotine dependence however patient was not interested at this time. Will obtain CT urogram for further assessment evaluation. BUN and creatinine ordered for imaging. Discussed importance of limiting fluids 2-3 hours prior to bed to decrease episodes of nocturia. Follow-up in 1-3 months with imaging, labs, and PVR; or sooner with any issues, concerns, and or questions. Orders: Orders Urine Cytology Today Z13.9 - Encounter for screening, unspecified CT urogram Today R31.29 - Other microscopic hematuria, Z87.891 - Personal history of nicotine dependence AMB Urinalysis Automated Today Z13.9 - Encounter for screening, unspecified AMB Post Void Residual by ultrasound Today R35.1 - Nocturia Blood Urea Nitrogen Today R31.29 - Other microscopic hematuria, Z87.891 - Personal history of nicotine dependence Creatinine Today R31.29 - Other microscopic hematuria, Z87.891 - Personal history of nicotine dependence Medications: New mirabegron ER (Myrbetriq) 25 mg PO DAILY 30 tabs 3RF 30 days N30.10 - Interstitial cystitis (chronic) without hematuria, N32.81 - Overactive bladder, R35.1 - Nocturia, R39.15 - Urgency of urination Discontinued tolterodine ER Discontinued Reason: Doctor's Order 2 mg PO DAILY 30 caps 3RF 30 days R39.15 - Urgency of urination Patient Instructions: The patient had an opportunity to ask questions regarding the treatment plan. All questions were answered. Physical exam, labs, and imaging were discussed and reviewed in detail. As well as risks, benefits, and discussion of treatment choices. No major barriers to understanding were identified. The patient exp ressed understanding and agreement with the above treatment plan. The patient was made aware they should contact our office by phone for worsening of their current condition, the appearance of new symptoms, or with any questions or concerns. Compliance is encouraged with any medications and follow up testing that is ordered. It is a privilege to be allowed the opportunity to participate in? your urological care.? Again, if you have any questions or concerns If you have any questions or concerns please do not hesitate to contact me. The office is [phone]. This note is constructed using voice recognition software. While every effort has been made to ensure accuracy hoop cutter errors may have been included. Yours sincerely, JESIKA Murray-IMTIAZ Coding Level of Care Code Est Pt Level 4 (91022) Complex EM visit Add On G2211 Diagnoses Microscopic hematuria R31.29 Personal history of nicotine dependence Z87.891 Abnormal cytology R89.6 Nocturia R35.1 CPT Codes Post Residual Void - PVR CPT Code: 13419-Imrq Void Residual by ultrasound ([id number])
--- OUTSIDE RECORDS SUMMARY | 2024-11-05 11:57 | XMS_ITS | Encounter Summary ---
Author Organization [employer] Address [address] [facility] 7t [place] [address] Care Team Providers Care Design Maker Name Role Phone Susie Park MD Primary Care Provide r Reason for Visit * Reason Comments Med Refill Encounter Details Date Type Department Care Team (Late st Contact Info) Description 09/20/2023 Refill [facility] MEDICINE [address] [place], [place] [phone] Kacey Edwards MD [address] [place], [place] [phone] Otitis externa of both ears, unspecified chronicity, [...] documented as of this encounter Care Teams Design Maker Relationship Specialty Start Date End Date Susie Park MD [address] [place] [id number] PCP - General Family Medicine 07/08/18 documented as of this encounter
--- OUTSIDE RECORDS SUMMARY | 2024-11-05 11:57 | XMS_ITS | Encounter Summary ---
Author Organization [employer] Address [address] [facility] 7t [place] [address] Care Team Providers Care Barn Manager Name Role Phone Susie Park MD Primary Care Provide r Reason for Visit * Reason Comments Med Refill Encounter Details Date Type Department Care Team (Late st Contact Info) Description 10/15/[address] [facility] MED & PEDS [address] [place], [place] [phone] Susie Park MD [address] [place] [address] Social History Tobacco Use Types Packs/Day Years [...] with others, in a hotel, in a mcc, living outside on the street, on a [...] documented as of this encounter Care Teams Barn Manager Relationship Specialty Start Date End Date Susie Park MD [address] [place] [address] PCP - General Family Medicine 07/08/18 documented as of this encounter
--- OUTSIDE RECORDS SUMMARY | 2024-11-05 11:57 | XMS_ITS | Encounter Summary ---
Author Organization [employer] Address [address] [facility] 7t [place] [address] Care Team Providers Care Ampoule Sealer Name Role Phone Susie Park MD Primary Care Provide r Encounter Details Date Type Department Care Team ([facility] st Contact Info) Description 03/07/2023 Orders Only [facility] MEDICINE [address] [place] [address] Jodie Mejia MD [address] [place] [address] Psoriasis (Primary Dx) Social History Tobacco Use [...] documented as of this encounter Care Teams Ampoule Sealer Relationship Specialty Start Date End Date Susie Park MD [address] [place] [address] PCP - General Family Medicine 07/08/18 documented as of this encounter
--- OUTSIDE RECORDS SUMMARY | 2024-11-05 11:57 | XMS_ITS | Encounter Summary ---
Author Organization [employer] Address [address] [facility] 7t [place] [address] Care Team Providers Care Fishery Division Chief Name Role Phone Susie Park MD Primary Care Provide r Encounter Details Date Type Department Care Team ([facility] st Contact Info) Description 08/30/2022 Abstract [facility] MEDICINE [address] [place] [address] Susie Park MD [address] [place] [address] Social History Tobacco Use Types Packs/Day Years [...] documented as of this encounter Care Teams Fishery Division Chief Relationship Specialty Start Date End Date Susie Park MD [address] [place] [address] PCP - General Family Medicine 07/08/18 documented as of this encounter
--- OUTSIDE RECORDS SUMMARY | 2024-11-05 11:57 | XMS_ITS | Encounter Summary ---
Author Organization [employer] Address [address] [facility] [address]t [place] [address] Care Team Providers Care Instructional Materials Director Name Role Phone Susie Park MD Primary Care Provide r Encounter Details Date Type Department Care Team ([facility] st Contact Info) Description 09/03/[address] [facility] MEDICINE [address] [place] [address] Susie Park MD [address] [place], [place] [phone] Social History Tobacco Use Types Packs/Day Years [...] documented as of this encounter Care Teams Instructional Materials Director Relationship Specialty Start Date End Date Susie Park MD [address] [place] [address] PCP - General Family Medicine 07/08/18 documented as of this encounter
--- OUTSIDE RECORDS SUMMARY | 2024-11-05 11:57 | XMS_ITS | Clinical Summary ---
Author Organization [employer] Address [address] [facility] 7t [place] [address] Care Team Providers Care Residential Aide Name Role Phone Susie Park MD Primary [...] Active insulin pen needle (UltiCare Micro Pen [place]) 32G x 4 mm misc Use daily to inject insulin 100 each Active Wixela Inhub 250-50 MCG/ACT aerosol powder INHALE 1 PUFF BY MOUTH TWICE A DAY ( MORNING AND EVENING) 60 each 1 023 Active calcipotriene (Dovonex) 0.005 % cream Apply topically 2 times daily. 60 g 1 Active nitroglycerin (Nitrostat) 0.4 MG SL tabletIndications :Coronary artery disease involving [place] coronary artery of [place] heart with angina pectoris ([facility]) Place 1 tablet (0.4 mg) under the [...] complication, with long-term current use of insulin ([facility]) TEST BLOOD SUGAR TWICE A DAY 100 each 024 Active atorvastatin (Lipitor) 40 MG tabletIndications :Type 2 diabetes mellitus with other specified complication, with long-term current use of insulin ([facility]) Take 1 tablet (40 mg) by mouth [...] MG EC tabletIndications :Coronary artery disease involving [place] coronary artery of [place] heart with angina pectoris (CMS/HCC) TAKE 1 [...] (08/31/2022 9:40 PM EST): Patient [place] call [facility] [place]d [place], a VM had [...] knee 08/22/2022 Coronary artery disease invo lving yakutat coronary artery of [place] heart with angina pectoris 08/22/2022 Assessment & [...] [facility] [address] [place] [address] Susie Pakr MD 10/15/2024 Refill [facility] [address] [place] [address] Susie Park MD 09/18/2024 Refill [facility] [address] [place] [address] Susie Park MD Primary osteoarthritis of both knees 09/17/2024 Refill [facility] [address] [place] [address] Susie Park MD 09/17/2024 Refill [facility] [address] [place] [address] Susie Park MD 09/03/2024 Orders Only GENERIC EXTERNAL DATA DEPARTMENT Provider, Generic External Data 08/19/2024 Refill [facility] MED & PEDS [address] [place] [address] Susie Park MD 08/19/2024 Refill [facility] MED & PEDS [address] [place] [address] Susie Park MD Coronary artery disease involving [place]at coronary artery of [place] heart with angina pectoris ([facility]/HCC) from Last 3 Months Immunizations Name Administration [...] complication, with long-term current use of insulin (CMS/HCC) LIPID PANEL, STANDARD Routine 04/14/2024 12:18 PM EDT HEPATITIS C ANTIBODY REFLEX Routine 03/12/2023 11:45 AM EDT ALBUMIN, RANDOM URINE W/CREATININE Routine 09/15/2020 8:43 AM EST from Last 3 Months or Most Recently Relevant to Health Maintenance Results * Cytopath-cell enhanced (09/03/2024 4:51 PM EST) 09/03/2024 4:51 PM EST 09/05/2024 9:00 AM EST [facility] - 09/09/2024 12:27 PM EST ----- ------- Name: Elio Calles ? Age/Sex: 69/M ? : 1955 Unit#: [id number] ?? Attend Dr: Ana Langley [employer]STRU[employer]-BC ?Re09/03/24 ?Status: DEP REF ? Location: HO.LNP ?Disch: ? ----- ------- SPEC : [id number] ?RECD: 09/05/24 ? STATUS: ??SOUT ? REQ NUM: [id number] ? JANI: 09/03/24-1650 ? SUBM DR: Ana Langley [employer]-BC ? ENTERED: ??09/05/241046 ?SP TYPE: Cytology ? OTHR DR: Susie [...] Copies To: ?? Susie Park MD ?? [facility] ?? [address] ?? [place] [address] ?? [phone] ?? Ana Langley [facility]- ?? [facility] ?? [address] [facility] [address] ?? [place] [address] ?? [phone] ?? [email or web address] ----- ------- Signed (signature on file) Jessica Blackwell 09/09/241226 ? ----- ------- ? END OF REPORT ? us Generic External Data Provider LAB CYTOLOGY AMIRAH CLAY Final Result [facility] [address] [place], [place] [phone] * (ABNORMAL) POCT HGB A1C (07/15/2024 10:38 AM EST) Hemoglobin A1C 7.1(A) 4.0 - 6.0 % QC Media Lot # [id number] Lot# Expiration Date [id number] Blood 07/15/2024 10:3 8 AM EST us Susie Cintron MD POINT OF CARE TEST EN TER/EDIT ORDERABLES Final Result * (ABNORMAL) Lipid Panel, Standard (04/14/2024 12:18 PM EDT) Triglycerides 154(H) <150 mg/dL [facility] Comment:Desirable Triglyceri de: less than 150 mg/dLBorderline High Triglyceride 150-199 mg/dLHigh Triglyceride: 200-499 mg/dLVery High Triglyceride: greater than or equal to 5OO mg/dL Cholesterol 230(H) <200 mg/dL [facility] Comment:Desirable Cholestero l: less than 200 mg/dLBorderline High Cholesterol: 200-239 mg/dLHigh Cholesterol: greater than 239 mg/dL LDL Cholesterol Calculated 159(H) <100 mg/dL [facility] Comment:Desirable LDL: less than 100 mg/dLNear Optimal/Above Optimal LDL: 110- 129 mg/dLBorderline High LDL: 130-159 mg/dLHigh LDL: 160-189 mg/dLVery High LDL: greater than or equal to 190 mg/dL HDL Cholesterol 41 >40 mg/dL [facility] Comment:Desirable HDL: great er than 40 mg/dL Note: This HDL assay may give artificially low results in patients with liver disease. 04/14/2024 12:1 8 PM EDT 04/14/2024 1:15 PM EDT us Generic External Data Provider LAB BLOOD ORDERAB LES Final Result [facility] [address] [place] [address] [phone] * Hepatitis C Antibody Reflex (03/12/2023 11:45 AM EDT) Hepatitis C Antibody Nonreactive Nonreactive [facility] Comment:Antibodies to HCV no t detected; does not exclude early acuteHCV infection. 03/12/2023 11:4 5 AM EDT 03/12/2023 1:40 PM EDT [facility] External Provider LAB BLO OD ORDERABLES Final Result Performing Organization Address [facility]/ZIP Co de Phone Number [facility] [address] [place] [address] [phone] * ALBUMIN, RANDOM URINE W/CREATININE (09/15/2020 8:43 AM EST) Microalbumin Urine 2.2 See Note: mg/dL [facility] 09/15/2020 8:43 AM EST Susie Cintron MD LAB URINE ORDERABLES Final Result Performing Organization Address [facility]/ZIP Co de Phone Number [facility] [address] from Last 3 Months or Most Recently Relevant to Health Maintenance Insurance [facility] Care Teams Residential Aide Relationship Specialty Start Date End Date Susie Park MD [address] [place] [address] PCP - General Family Medicine 07/08/18
--- OUTSIDE RECORDS SUMMARY | 2024-11-05 11:57 | XMS_ITS | Encounter Summary ---
Author Organization [employer] Address [address] [facility] [address] [place] [address] Care Team Providers Care Nuclear Fuels Reclamation Engineer Name Role Phone Susie Park MD Primary Care Provide r Reason for Visit * Reason Comments Med Refill Encounter Details Date Type Department Care Team (Late st Contact Info) Description 08/19/2024 Refill [facility] MED & PEDS [address] [place], [place] [phone] Susie Park MD [address] [place] [address] Social History Tobacco Use Types Packs/Day Years [...] with others, in a hotel, in a care home, living outside on the street, on [...] documented as of this encounter Care Teams Nuclear Fuels Reclamation Engineer Relationship Specialty Start Date End Date Susie Park MD [address] [place] [address] PCP - General Family Medicine 07/08/18 documented as of this encounter
--- OUTSIDE RECORDS SUMMARY | 2024-11-05 11:57 | XMS_ITS | Encounter Summary ---
Author Organization [employer] Address [address] [facility] 7t [place] [address] Care Team Providers Care Cadmium Liquor Maker Name Role Phone Susie Park MD Primary Care Provide r Reason for Visit * Reason Comments Med Refill Encounter Details Date Type Department Care Team (Late st Contact Info) Description 09/17/2024 Refill [facility] CH[facility] MED & PEDS [address] [place], [place] [phone] Susie Park MD [address] [place] [address] Social History Tobacco Use Types Packs/Day Years [...] with others, in a hotel, in a fpc, living outside on the street, on a [...] documented as of this encounter Care Teams Cadmium Liquor Maker Relationship Specialty Start Date End Date Susie Park MD [address] [place] [address] PCP - General Family Medicine 07/08/18 documented as of this encounter
--- OUTSIDE RECORDS SUMMARY | 2024-11-05 11:57 | XMS_ITS | Encounter Summary ---
Author Organization [employer] Address 75 [facility] 7t [place] [address] Care Team Providers Care Fourdrinier Tender Name Role Phone Susie Park MD Primary Care Provide r Reason for Visit * Reason Comments Med Refill Encounter Details Date Type Department Care Team (Late st Contact Info) Description 09/26/2023 Refill [facility] [address] [place], [place] [phone] Susie Park MD 230 [place], [place] [phone] Coronary artery disease involving bad river band coronary artery of bad river band heart with angina pectoris (CMS/HCC) Social History [...] Visit Diagnoses Diagnosis Coronary artery disease involving bad river band coronary artery of bad river band heart with angina pectoris (CMS/HCC) documented in this encounter Additional Health Concerns Assessment Noted Time PHQ-9 Depression Total Score: 8 10/24/19 23 11:22 AM EST documented as of this encounter Care Teams Fourdrinier Tender Relationship Specialty Start Date End Date Susie Park MD [address] [place] [address] PCP - General Family Medicine 07/08/18 documented as of this encounter
--- OUTSIDE RECORDS SUMMARY | 2024-11-05 11:57 | XMS_ITS | Encounter Summary ---
Author Organization [employer] Address 75 [facility] 7t [place] [address] Care Team Providers Care Sports Physiotherapist Name Role Phone Susie Park MD Primary Care Provide r Reason for Visit * Reason Onset Date Comments Nurse Triage 10/18/2023 Encounter Details Date Type Department Care Team ([facility] st Contact Info) Description 10/18/[address] [facility] 230 [place], [place] [phone] Susie Park MD 230 [place], [place] [phone] Nurse Triage Social History Tobacco Use Types [...] and daughter advised of disposition, agree to [facility] now for exam due to CP [...] documented as of this encounter Care Teams Sports Physiotherapist Relationship Specialty Start Date End Date Susie Park MD [address] [place] [address] PCP - General Family Medicine 07/08/18 documented as of this encounter
--- OUTSIDE RECORDS SUMMARY | 2024-11-05 11:57 | XMS_ITS | Encounter Summary ---
Author Organization [employer] Address [address] [facility] 7t [place] [address] Care Team Providers Care Pst Specialist Name Role Phone Susie Park MD Primary Care Provide r Reason for Visit * Reason Comments Med Refill Encounter Details Date Type Department Care Team (Late st Contact Info) Description 10/15/2024 Refill [facility] PEDS [address] [place], [place] [phone] Susie Park MD 230 [place] [address] Social History Tobacco Use Types Packs/Day Years [...] with others, in a hotel, in a penitentiary, living outside on the street, on a [...] documented as of this encounter Care Teams Pst Specialist Relationship Specialty Start Date End Date Susie Park MD 230 [place] [address] PCP - General Family Medicine 07/08/18 documented as of this encounter
== END 2024-11-05 11:18 | disposition home or self-care (01) ==
LOC: HO.HUSH 10:25
PROVIDERS: PCP Internal Medicine; Visit Provider Nurse Practitioner Family
DX: R31.29 Other microscopic hematuria (principal); Z87.891 Personal history of nicotine dependence; R89.6 Abnormal cytological findings in specimens from other organs, systems and tissues; R35.1 Nocturia; Z13.9 Encounter for screening, unspecified
CPT/HCPCS: 99214; G2211

== ENCOUNTER 2024-11-05 10:24 | Outpatient (REF) | payer OTHER, SELFPAY ==
[2024-11-05 12:53] LABS: Blood Urea Nitrogen 15 mg/dL (9-16); Estimated Glomerular Filt Rate > 60
[2024-11-05 13:02] LABS: Urine Cytology See Pathology rpt
--- OUTSIDE RECORDS SUMMARY | 2024-11-05 13:14 | XMS_ITS | Encounter Summary ---
Author Organization [employer] Address 75 [facility] 7t [place] [address] Care Team Providers Care Note Taker Name Role Phone Susie Park MD Primary Care Provide r Reason for Visit * Reason Comments Med Refill Encounter Details Date Type Department Care Team (Late st Contact Info) Description 10/15/2024 Refill [facility] MED & PEDS [address] [place], [place] [phone] Susie Park MD 230 [place] [address] Social History Tobacco Use Types Packs/Day Years [...] with others, in a hotel, in a skilled nursing, living outside on the street, on a [...] documented as of this encounter Care Teams Note Taker Relationship Specialty Start Date End Date Susie Park MD 230 [place] [address] PCP - General Family Medicine 07/08/18 documented as of this encounter
--- OUTSIDE RECORDS SUMMARY | 2024-11-05 13:14 | XMS_ITS | Encounter Summary ---
Author Organization [employer] Address 75 [facility] 7t [place] [address] Care Team Providers Care Mobile Qa Tester Name Role Phone Susie Park MD Primary Care Provide r Reason for Visit * Reason Onset Date Comments Nurse Triage 10/18/2023 Encounter Details Date Type Department Care Team ([facility] st Contact Info) Description 10/18/2023 Telephone [facility] 230 [place], [place] [phone] Susie Park MD 230 [place], [place] [phone] Nurse Triage Social History Tobacco Use Types [...] and daughter advised of disposition, agree to [facility] now for exam due to CP [...] documented as of this encounter Care Teams Mobile Qa Tester Relationship Specialty Start Date End Date Susie Park MD [address] [place] [address] PCP - General Family Medicine 07/08/18 documented as of this encounter
--- OUTSIDE RECORDS SUMMARY | 2024-11-05 13:14 | XMS_ITS | Encounter Summary ---
Author Organization [employer] Address 75 [facility] 7t [place] [address] Care Team Providers Care Renal Medicine Physician Name Role Phone Susie Park MD Primary Care Provide r Encounter Details Date Type Department Care Team ([facility] st Contact Info) Description 08/30/2022 Abstract [facility] [address] [place] [address] Susie Park MD 230 [place] [address] Social History Tobacco Use Types Packs/Day Years [...] documented as of this encounter Care Teams Renal Medicine Physician Relationship Specialty Start Date End Date Susie Park MD 230 [place] [address] PCP - General Family Medicine 07/08/18 documented as of this encounter
--- OUTSIDE RECORDS SUMMARY | 2024-11-05 13:14 | XMS_ITS | Data Portability ---
Author Organization [place] [facility] Address 100 [facility] [address] [place] [address] Care Team Providers Care Sample Display Preparer Name Role Phone JEFAGUILAVICTORIANO SHAH Primary Care Provider Assessment Encounter Date Assessment Date Assessment LastModified [...] 0.1 % ear drops,viet pension 2024 025 [facility]- , [address] [place], [place], [id number], 09/19/2024 10:42:25 fluocinol one acetonide oil 0.01 % ear drops 2023 024 [facility]- , [address] [place], [place], [id number], 06/19/2024 10:10:57 triamcino lone acetonide 0.1 % topical cream 2023 024 [facility]- , [address] [place], [place], [id number], 06/19/2024 10:11:01 Patient TargetsNo targets recorded. Patient Instructions Encounter Date Encounter Id Patient Instructions Last Modified By Organization Details Last Modified Time 02/15/2024 [id number] Patient presents for cerumen removal. Successfully removed [...] and Address Organization Details Recorded Time Psoriasis 2316461 Active 2021 Psoriasis , unspecifi ed; Note: Date Diagnosed : 10/07/2021 1:51 PM (L40.9) Not Available [facility] 03:12:14 Bilateral diffuse otitis externa 64197854621 34840 Active 2022 Diffuse otitis externa, bilateral ; Note: Date Diagnosed : 12/19/2022 9:52 AM (H60.313) Not Available [facility] 4 03:12:13 Impacted cerumen in left ear 17994692210 64401 Active 2020 Impacted cerumen, left ear; Note: Date Diagnosed : 1 7:03 AM (H61.22) Not Available [facility] 4 03:12:13 Impacted cerumen in right ear 80298212704 26462 Active 2021 Impacted cerumen, right ear; Note: Date Diagnosed : 01/26/2022 1:41 PM (H61.21) Not Available [facility] 4 03:12:12 Impacted cerumen of bilateral ears 46808477810 15253 Active 2021 Impacted cerumen, bilateral ; Note: Date Diagnosed : 12/16/2021 1:50 PM (H61.23) Not Available [facility] 4 03:12:13 Diffuse otitis externa 47265969 Active 2022 Diffuse otitis externa, right ear; Note: Date Diagnosed : 1 2:49 PM (H60.311) ; Start Date : Diffuse otitis externa, left ear; Note: Date Diagnosed : 01/09/2023 10:45 AM (H60.312) Not Available [facility] 4 03:12:13 Chronic right myringiti s 31437933661 28887 Active 2020 Chronic myringiti s, right ear; Note: Date Diagnosed : 1 7:03 AM (H73.11) Not Available [facility] 4 03:12:14 Otorrhea of right ear 08010587669 00305 Active 2020 Otorrhea, right ear; Note: Date Diagnosed : 1 2:49 PM (H92.11) Not Available [facility] 4 03:12:14 Acute infective otitis externa 940696886 Active 2024 [facility] [address] [place] [address],[place] [address], [place], [address] , [place] - [facility] 5 10:40:43 Problem Notes None recorded. Procedures Surgical History Date Name Laterality Status Provider Name and Address Organization Details Recorded Time 5 Cerumen removal without microscope bilat completed [facility] [place] [facility] [address] [facility],[address], [address], [place] - [facility] 09/19/2024 10:51:22 4 Cerumen removal without microscope bilat completed [facility] [facility] [address] [facility],[address], [address], [place] - [facility] 06/19/2024 10:21:03 4 Cerumen removal without microscope bilat completed [facility] [facility] [address] [facility],[address], [address], [place] - [facility] 02/15/2024 13:26:19 Imaging Results None recorded. Procedure [...] mg tablet 06/19 completed Medicati on ID: [id number] B rand Name: acarbose Send Method: E-Prescr [...] mg tablet 06/19 completed Medicati on ID: [id number] B rand Name: tramadol Send Method: E-Prescr ibed Sub s Allowed: subs OK Medic ationGen ericName : tramadol Not Available Not Available Not Available quetiapin e 100 mg tablet 06/19 completed Medicati on ID: [id number] B rand Name: quetiapi ne Send Method: [...] affected area 06/19 completed Medicati on ID: [id number] D uration Value: 30 Brand Name: Mineral [...] a day 06/19 completed Medicati on ID: [id number] D uration Value: 14 Brand Name: hydrocor [...] small amount 06/19 completed Medicati on ID: [id number] D uration Value: 14 Prescri bed By [...] eye ointment 11/04 completed Medicati on ID: [id number] P rescribe d By Name: HARIS Pulido [...] a day 06/19 completed Medicati on ID: [id number] D uration Value: 14 Brand Name: hydrocor tisone S end Method: E-Prescr ibed Sub s Allowed: subs OK Medic ationGen ericName : hydrocor tisone Not Available Not Available Not Available albuterol sulfate HFA 90 mcg/actua tion aerosol inhaler active Not Available Not Available Not Available hydrocort isone 2.5 % topical ointment Apply a small amount once a day 06/19 completed Medicati on ID: [id number] D uration Value: 14 Brand Name: hydrocor tisone 2.5% Sen d Method: E-Prescr ibed Sub s Allowed: subs OK Speci al Instruct ion: to external ears Med icationG enericNa me: hydrocor tisone 2.5% Med ication ID: [id number] D uration Value: 14 Brand Name: hydrocor [...] topical ointment 11/07 completed Medicati on ID: [id number] P rescribe d By Name: HARIS Pulido nd Name: gentamic in Send Method: E-Prescr ibed Sub s Allowed: subs OK Speci al Instruct ion: Bring to next appointm ent for applicat ion Medi cationGe nericNam e: gentamic in Not Available Not Available Not Available mometason e 0.1 % topical cream 06/19 completed Medicati on ID: [id number] D uration Value: 10 Prescri bed By [...] drops,viet pension 06/19 completed Medicati on ID: [id number] D uration Value: 14 Brand Name: TobraDex [...] mg tablet 06/19 completed Medicati on ID: [id number] B rand Name: Brilinta Send Method: E-Prescr [...] nasal spray 2020 active Medicati on ID: [id number] B rand Name: Narcan S end Method: [...] Updated DateTime 02/15/2024 167.64 cm 27.9 kg/m2 81877.[address] [facility] 02/15/2024 13:06:56 Date Recorded Body height Body mass index (BMI) Body weight Provider Name and Address Organization Details Last Updated DateTime 06/19/2024 167.64 cm 27.9 kg/m2 82049.[address] [facility] 06/19/2024 09:32:10 Date Recorded Body height Body mass index (BMI) Body weight Provider Name and Address Organization Details Last Updated DateTime 09/19/2024 167.64 cm 27.9 kg/m2 34570.[address] [facility] 09/19/2024 10:34:07 Social History None recorded. Functional Status None recorded. Mental Status None recorded. Family History Nothing Reported. Medical History No medical history recorded. Past Encounters Encounter ID Performer Location Encounter Start Date Encounter Closed Date Diagnosis/Indication Diagnosis SNOMED-CT Code Diagnosis ICD10 Code Diagnosis Note [id number] STEPHANIA CORRIGAN MD [facility] [address] [address] 02/15/2024 12:43:54 02/15/2024 13:30:17 Impacted cerumen of bilateral ears [id number] 330833 H61.23 [id number] DAILY FUNES MD [facility] [address] [address] 06/19/2024 09:13:54 06/19/2024 10:12:40 Psoriasis 3771413 L40.9 Impacted c erumen of bilateral ears 3070865631 021997 H61.23 [id number] STEPHANIA CORRIGAN MD [facility] [address] [address] 09/19/2024 10:27:59 09/19/2024 10:47:34 Acute infective otitis externa 235332632 H60.391 Impacted c erumen of bilateral ears 2010652556 893976 H61.23 Health Concerns Section Related Observation LastModified by Organization Detai ls LastModified Time None Recorded Concern Status LastModified by Organization Details LastModified Time None Recorded Advance Directives Directive None Recorded Payers Encounter Date Sequence Insurance Name Policy Number Policy Ruiz Covered Member ID Ruiz Member ID Guarantor Name 02/15/2024 1 [facility] - DOS ON OR AFTER 2022 - MEDICARE [place]AGE [place]/ADV ANTAGE - PPO) Elio Calles [id number] Elio Calles 06/19/2024 1 [facility] - DOS ON OR AFTER 2022 - [place]V ANTAGE - PPO) Elio Calles [id number] Elio Calles 09/19/2024 1 [facility] - DOS ON OR AFTER 2022 - [place]V ANTAGE - PPO) Elio Calles [id number] Elio Calles Notes Date Note Type Note Provider Name and Address Organization Details Recorded Time 02/15/2024 text/html 68-year-old male presents for evaluation of the ears. Denies change in hearing, otalgia, otorrhea. Using Vaseline and keeping ears dry in the shower, denies Q-tip use. STEPHANIA CUNNINGHAM MD [address] [place] [address], [place], [address], [facility] 02/15/2024 16:47:54 06/19/2024 text/html 69-year-old male presents for evaluation of the ears. He reports dry flaky skin in the left greater than right ear that he digs out with a fingernail. He has a history of psoriasis that has been flaring up lately he does not see dermatology. He denies otalgia, otorrhea, and change in hearing. DAILY FUNES MD [address] [facility],[address], [address], [facility] 06/19/2024 17:32:09 09/19/2024 text/html 69-year-old male with [...] and otorrhea. STEPHANIA CUNNINGHAM MD [address] [facility],[place] [address], [place], [address], [facility] 09/19/2024 12:41:03
--- OUTSIDE RECORDS SUMMARY | 2024-11-05 13:14 | XMS_ITS | Encounter Summary ---
Author Organization [employer] Address 75 [facility] 7t [place] [address] Care Team Providers Care Software Engineering Project Manager Name Role Phone Susie Park MD Primary Care Provide r Reason for Visit * Reason Comments Med Refill Encounter Details Date Type Department Care Team (Late st Contact Info) Description 08/19/2024 Refill [facility] MED & PEDS [address] [place], [place] [phone] Susie Park MD 230 [place] [address] Social History Tobacco Use Types Packs/Day Years [...] documented as of this encounter Care Teams Software Engineering Project Manager Relationship Specialty Start Date End Date Susie Park MD [address] [place] [address] PCP - General Family Medicine 07/08/18 documented as of this encounter
--- OUTSIDE RECORDS SUMMARY | 2024-11-05 13:14 | XMS_ITS | Encounter Summary ---
Author Organization [employer] Address 75 [facility] 7t [place] [address] Care Team Providers Care Wheel Filler Name Role Phone Susie Park MD Primary Care Provide r Encounter Details Date Type Department Care Team (Late st Contact Info) Description 11/05/2024 Orders Only GENERIC EXTERNAL DATA DEPARTMENT Provider, Generic External Data Social History Tobacco Use Types Packs/Day Years [...] with others, in a hotel, in a assisted, living outside on the street, on a [...] on file documented as of this encounter Procedures Procedure Name Priority Date/Time Associated Diagnosis Comments CREATININE, SERUM Routine 11/05/2024 11: 46 AM EDT UREA NITROGEN (BUN) Routine 11/05/2024 1 1:46 AM EDT documented in this encounter Results * Creatinine, Serum (11/05/2024 11:46 AM EDT) Creatinine, Serum 0.96 0.5 - 1.4 mg/dL [facility] Estimated Glomerular Filt Rate >60 [facility] Comment:Chronic Kidney Disea se: Estimated GFR < 60 mL/min/1.47u0Rdkxhm Kidney Disease: Estimated GFR < 15 mL/min/1.73m2 11/05/2024 11:4 6 AM EDT 11/05/2024 11:46 AM EDT us Generic External Data Provider LAB BLOOD ORDERAB LES Final Result [facility] [address] [place] [phone] * BUN (Blood Urea Nitrogen) (11/05/2024 11:46 AM EDT) Urea Nitrogen (BUN) 15 9 - 16 mg/dL [facility] 11/05/2024 11:4 6 AM EDT 11/05/2024 11:46 AM EDT us Generic External Data Provider LAB BLOOD ORDERAB LES Final Result [facility] [address] [place] [address] [phone] documented in this encounter Visit Diagnoses Not on filedocumented in this encounter Additional Health Concerns Assessment Noted Time PHQ-9 Depression Total Score: 9 04/14/20 24 10:39 AM EDT documented as of this encounter Care Teams Wheel Filler Relationship Specialty Start Date End Date Susie Park MD [address] [place] [address] PCP - General Family Medicine 07/08/18 documented as of this encounter
--- OUTSIDE RECORDS SUMMARY | 2024-11-05 13:14 | XMS_ITS | Encounter Summary ---
Author Organization [employer] Address 75 [facility] 7t [place] [address] Care Team Providers Care Utility Tech Name Role Phone Susie Park MD Primary Care Provide r Encounter Details Date Type Department Care Team ([facility] st Contact Info) Description 09/03/[address] [facility] [address] [place] [address] Susie Park MD [address] [place], [place] [phone] Social History Tobacco Use Types Packs/Day Years [...] documented as of this encounter Care Teams Utility Tech Relationship Specialty Start Date End Date Susie Park MD [address] [place] [address] PCP - General Family Medicine 07/08/18 documented as of this encounter
--- OUTSIDE RECORDS SUMMARY | 2024-11-05 13:14 | XMS_ITS | Encounter Summary ---
Author Organization [employer] Address 75 [facility] 7t [place] [address] Care Team Providers Care Buzzsaw Operator Helper Name Role Phone Susie Park MD Primary Care Provide r Reason for Visit * Reason Comments Med Refill Encounter Details Date Type Department Care Team (Late st Contact Info) Description 09/17/2024 Refill [facility] MED [facility] PEDS [address] [place], [place] [phone] Susie Park MD [address] [place] [address] Social History Tobacco Use Types Packs/Day Years [...] with others, in a hotel, in a fci, living outside on the street, on a [...] documented as of this encounter Care Teams Buzzsaw Operator Helper Relationship Specialty Start Date End Date Susie Park MD [address] [place] [address] PCP - General Family Medicine 07/08/18 documented as of this encounter
--- OUTSIDE RECORDS SUMMARY | 2024-11-05 13:14 | XMS_ITS | Encounter Summary ---
Author Organization [employer] Address 75 [facility] 7t [place] [address] Care Team Providers Care College Counselor Name Role Phone Susie Park MD Primary Care Provide r Encounter Details Date Type Department Care Team ([facility] st Contact Info) Description 03/07/2023 Orders Only [facility]INE [address] [place] [address] Jodie Mejia MD [address] [place] [address] Psoriasis (Primary Dx) Social History Tobacco Use [...] documented as of this encounter Care Teams College Counselor Relationship Specialty Start Date End Date Susie Park MD [address] [place] [address] PCP - General Family Medicine 07/08/18 documented as of this encounter
--- OUTSIDE RECORDS SUMMARY | 2024-11-05 13:14 | XMS_ITS | Clinical Summary ---
Author Organization [employer] Address [address] [facility] 7t [place] [address] Care Team Providers Care Physician Neonatology Name Role Phone Susie Park MD Primary [...] Active insulin pen needle (UltiCare Micro Pen Cold[place]) 32G x 4 mm misc Use daily to inject insulin 100 each Active Wixela Inhub 250-50 MCG/ACT aerosol powder INHALE 1 PUFF BY MOUTH TWICE A DAY ( MORNING AND EVENING) 60 each 1 023 Active calcipotriene (Dovonex) 0.005 % cream Apply topically 2 times daily. 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) Place 1 tablet (0.4 mg) under the [...] complication, with long-term current use of insulin ([facility]) TEST BLOOD SUGAR TWICE A DAY 100 each 024 Active atorvastatin (Lipitor) 40 MG tabletIndications :Type 2 diabetes mellitus with other specified complication, with long-term current use of insulin (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 (CMS/HCC) TAKE 1 [...] 9:40 PM EST): Patient to call [facility] to schedule abd [place], a VM had [...] knee 08/22/2022 Coronary artery disease invo lving nikolski coronary artery of nikolski heart with angina pectoris 08/22/2022 Assessment & [...] Encounters Date Type Department Care Team Description 11/05/2024 Orders Only GENERIC EXTERNAL DATA DEPARTMENT Provider, Generic External Data 10/15/2024 Refill [facility] [address] [place] [address] Susie Park MD 10/15/2024 Refill [facility] [address] [place] [address] Susie Park MD 09/18/2024 Refill [facility] [address] [place] [address] Susie Park MD Primary osteoarthritis of both knees 09/17/2024 Refill [facility] [address] [place] [address] Susie Park MD 09/17/2024 Refill [facility] [address] [place] [address] Susie Park MD 09/03/2024 Orders Only GENERIC EXTERNAL DATA DEPARTMENT Provider, Generic External Data 08/19/2024 Refill [facility] [address] [place] [address] Susie Park MD 08/19/2024 Refill [facility] [address] [place] [address] Susie Park MD 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) LIPID PANEL, STANDARD Routine 04/14/2024 12:18 PM EDT HEPATITIS C ANTIBODY REFLEX Routine 03/12/2023 11:45 AM EDT ALBUMIN, RANDOM URINE W/CREATININE Routine 09/15/2020 8:43 AM EST from Last 3 Months or Most Recently Relevant to Health Maintenance Results * Creatinine, Serum (11/05/2024 11:46 AM EDT) Creatinine, Serum 0.96 0.5 - 1.4 mg/dL [facility] Estimated Glomerular Filt Rate >60 [facility] Comment:Chronic Kidney Disea se: Estimated GFR < 60 mL/min/[id number] Kidney Disease: Estimated GFR < 15 mL/min/1.73m2 11/05/2024 11:4 6 AM EDT 11/05/2024 11:46 AM EDT us Generic External Data Provider LAB BLOOD ORDERAB LES Final Result Performing Organization Address [facility]/ZIP Co de Phone Number [facility] [address] [place] [address] [phone] * BUN (Blood Urea Nitrogen) (11/05/2024 11:46 AM EDT) Urea Nitrogen (BUN) 15 9 - 16 mg/dL [facility] 11/05/2024 11:4 6 AM EDT 11/05/2024 11:46 AM EDT Generic External Data Provider LAB BLOOD ORDERAB LES Final Result Performing Organization Address [facility] de Phone Number [facility] [address] [place] [phone] * Cytopath-cell enhanced (09/03/2024 4:51 PM EST) 09/03/2024 4:51 PM EST 09/05/2024 9:00 AM EST Narrative [facility] - 09/09/2024 12:27 PM EST ----- ------- Name: Elio Calles ? Age/Sex: 69/M ? : 1955 Unit#: [id number] ?? Attend : Ana Langley [facility] ?Re09/03/24 ?Status: DEP REF ? Location: HO.LNP ?Disch: ? ----- ------- SPEC : [id number] ?RECD: 09/05/24 ? STATUS: ??SOUT ? REQ NUM: [id number] ? JANI: 09/03/24 ? SUBM DR: Ana Langley DEBONE PROCESSING SUPERVISOR- ? ENTERED: ??09/05/24 ?SP TYPE: Cytology ? [...] Copies To: ?? Susie Park MD ?? [facility] ?? [address] [facility] ?? [place] [address] ?? [phone] ?? Ana Langley [facility] ?? [facility] ?? [address] [place] [address] Dr. Mcmahon ?? [place] [address] ?? [phone] ?? [email or web address] ----- ------- Signed (signature on file) Jessica Blackwell 09/09/24 1227 ? ----- ------- ? END OF REPORT ? us Generic External Data Provider LAB CYTOLOGY AMIRAH CLAY Final Result [facility] [address] [place] [address] [phone] * (ABNORMAL) POCT HGB A1C (07/15/2024 10:38 AM EST) Hemoglobin A1C 7.1(A) 4.0 - 6.0 % QC Media Lot # [id number] Lot# Expiration Date 8082 Blood 07/15/2024 10:3 8 AM EST us Susie Cintron MD POINT OF CARE TEST EN TER/EDIT ORDERABLES Final Result * (ABNORMAL) Lipid Panel, Standard (04/14/2024 12:18 PM EDT) Triglycerides 154(H) <150 mg/dL [facility] Comment:Desirable Triglyceri de: less than 150 mg/dLBorderline High Triglyceride 150-199 mg/dLHigh Triglyceride: 200-499 mg/dLVery High Triglyceride: greater than or equal to 5OO mg/dL Cholesterol 230(H) <200 mg/dL [facility] Comment:Desirable Cholestero l: less than 200 mg/dLBorderline High Cholesterol: 200-239 mg/dLHigh Cholesterol: greater than 239 mg/dL LDL Cholesterol Calculated 159(H) <100 mg/dL [facility] Comment:Desirable LDL: less than 100 mg/dLNear Optimal/Above Optimal LDL: 110- 129 mg/dLBorderline High LDL: 130-159 mg/dLHigh LDL: 160-189 mg/dLVery High LDL: greater than or equal to 190 mg/dL HDL Cholesterol 41 >40 mg/dL [facility] Comment:Desirable HDL: great er than 40 mg/dL Note: This HDL assay may give artificially low results in patients with liver disease. 04/14/2024 12:1 8 PM EDT 04/14/2024 1:15 PM EDT us Generic External Data Provider LAB BLOOD ORDERAB LES Final Result [facility] [address] [place], [place] [phone] * Hepatitis C Antibody Reflex (03/12/2023 11:45 AM EDT) Hepatitis C Antibody Nonreactive Nonreactive [facility] Comment:Antibodies to HCV no t detected; does not exclude early acuteHCV infection. 03/12/2023 11:4 5 AM EDT 03/12/2023 1:40 PM EDT us [facility] External Provider LAB BLO OD ORDERABLES Final Result Performing Organization Address City/[facility]/ZIP Co de Phone Number [facility] [address] [place] [phone] [phone] * ALBUMIN, RANDOM URINE W/CREATININE (09/15/2020 [...] URINE ORDERABLES Final Result Performing Organization Address City/[facility] Co de Phone Number [facility] [address] from Last 3 Months or Most Recently Relevant to Health Maintenance [place] [id number] [facility] Care Teams Physician Neonatology Relationship Specialty Start Date End Date Susie Park MD [address] [place] [phone] PCP - General Family Medicine 07/08/18
--- OUTSIDE RECORDS SUMMARY | 2024-11-05 13:14 | XMS_ITS | Encounter Summary ---
Author Organization [employer] Address [address] [facility] 7t [place] [address] Care Team Providers Care Product Development Technician Name Role Phone Susie Park MD Primary Care Provide r Reason for Visit * Reason Comments Med Refill Encounter Details Date Type Department Care Team (Late st Contact Info) Description 09/20/2023 Refill [facility] [address] [place], [place] [phone] Kacey Edwards MD [address] [place], [place] [phone] Otitis externa of both ears, unspecified chronicity, [...] documented as of this encounter Care Teams Product Development Technician Relationship Specialty Start Date End Date Susie Park MD [address] [place] [phone] PCP - General Family Medicine 07/08/18 documented as of this encounter
--- OUTSIDE RECORDS SUMMARY | 2024-11-05 13:14 | XMS_ITS | Encounter Summary ---
Author Organization [employer] Address [address] [facility] [address] [place] [address] Care Team Providers Care Customer Success Associate Name Role Phone Susie Park MD Primary Care Provide r Reason for Visit * Reason Comments Med Refill Encounter Details Date Type Department Care Team (Late st Contact Info) Description 09/26/2023 Refill [facility] [address] [place], [place] [phone] Susie Park MD [address] [place], [place] [phone] Coronary artery disease involving [place] coronary artery of [place] heart with angina pectoris (CMS/HCC) Social History [...] Visit Diagnoses Diagnosis Coronary artery disease involving [place] coronary artery of [place] heart with angina pectoris (CMS/HCC) documented in this encounter Additional Health Concerns Assessment Noted Time PHQ-9 Depression Total Score: 8 10/24/19 23 11:22 AM EST documented as of this encounter Care Teams Customer Success Associate Relationship Specialty Start Date End Date Susie Park MD [address] [place] [phone] PCP - General Family Medicine 07/08/18 documented as of this encounter
--- OUTSIDE RECORDS SUMMARY | 2024-11-05 13:14 | XMS_ITS | Encounter Summary ---
Author Organization [employer] Address [address] [facility] [address] [place] [address] Care Team Providers Care Bottle Blowing Machine Tender Name Role Phone Susie Park MD Primary Care Provide r Reason for Visit * Reason Comments Med Refill Encounter Details Date Type Department Care Team (Late st Contact Info) Description 10/15/2024 Refill [facility] [address] [place], [place] [phone] Susie Park MD [address] [place] [address] Social History Tobacco Use Types Packs/Day Years [...] documented as of this encounter Care Teams Bottle Blowing Machine Tender Relationship Specialty Start Date End Date Susie Park MD [address] [place] [address] PCP - General Family Medicine 07/08/18 documented as of this encounter
[2024-11-05 16:23] LABS: Urine Cytology See Pathology rpt
== END 2024-11-05 10:25 | disposition home or self-care (01) ==
LOC: HO.LAB 10:24
PROVIDERS: PCP Internal Medicine; Visit Provider Nurse Practitioner Family
DX: R31.29 Other microscopic hematuria (principal); Z87.891 Personal history of nicotine dependence; R89.6 Abnormal cytological findings in specimens from other organs, systems and tissues; R35.1 Nocturia
CPT/HCPCS: 36415; 51798; 81003; 82565; 84520; 88112; 99212

== ENCOUNTER 2024-11-12 09:43 | Outpatient (RCR) | payer OTHER, SELFPAY ==
--- NOTE | 2024-09-23 11:57 | MHC.PT.EP ---
[facility] [place] Office [place] Office [place] Office [address] Yovani Gonzalez [address] [phone] F: [phone] F: [phone] F: [phone] F: [phone] Physical Therapy Plan of Care Date of Evaluation: 09/23/24 Date of Surgery: NA Diagnosis: SPONDYLOSIS Assessment: Pt IS 69 YO M WITH CHRONIC BACK PAIN. PRESENTS WITH LIMITED TRUNK AND LE FLEXIBILITY AND LIMITED CORE/HIP STRENGTH. SHOULD BENEFIT FROM PT TO ADDRESS THESE ISSUES Frequency and Duration: The patient will be seen 2X/WK X 4 WKS Short Term Goals: 1. INCREASED AWARENESS BACK CARE AND POSTURE 2. IMPROVED SLEEP (IMPROVED ZHANG TO STAYING IN ONE POSITITON Beverage Specialist Goals: 1. DECREASED BACK PAIN AT LEAST 50% WITH ADLS 2. I HEP WITH DC EX PLAN (?[facility] OR SR CTR CLASSES) Treatment Plan: Modalities to reduce pain, spasms and effusion. Manual therapy to restore motion and function. Therapeutic exercise to improve strength and flexibility. Neuromuscular re-education for posture and balance. Therapeutic activities to return to functional activities of daily living. Electronically signed by: ZENIA FRYE PT Please sign and return to therapist. Thank you for your referral.
--- NOTE | 2024-11-26 11:45 | MHC.PT.DC ---
[facility] [place] Office [place] Office [place] Office [address] Yovani Gonzalez [address] [phone] F: [phone] F: [phone] F: [phone] F: [phone] Physical Therapy Discharge Report Diagnosis: SPONDYLOSIS Date of Surgery: NA Date of Evaluation: 09/23/24 Date of Discharge: 11/26/24 Treatments to Date: 2 Cancellations to Date: No Shows to Date: Discharge Status: Recommend MD Follow-up Visit Non-compliance Discharge Summary: Pt LAST SEEN ON 11/12. PER ASSESSMENT BY CRISTEL JOYCE PT: 'Pt requires consistent re-direction to his exercises with frequent conversations and jokes to PT and other patients throughout session. Pt seems largely uninterested in his therapy though does go through some motions and puts forth some effort.' Pt THEN CANCELLED APPT (PER RECEIVING INSPECTOR NOTE TOO MUCH BACK PAIN ) Pt THEN NO SHOWED LAST SCHEDULED APPT Electronically signed by: ZENIA FRYE PT Please sign and return to therapist. Thank you for your referral.
== END 2024-11-26 11:45 | disposition home or self-care (01) ==
LOC: HO.PT 09:43
PROVIDERS: PCP Internal Medicine; Visit Provider Registered Nurse Emergency
DX: M47.816 Spondylosis without myelopathy or radiculopathy, lumbar region (principal)
CPT/HCPCS: 97110; 97161; 97535

== ENCOUNTER 2024-12-22 09:19 | Outpatient (REF) | payer OTHER, SELFPAY ==
--- NOTE | ~2024-12-22 | CT_ITS ---
CLINICAL HISTORY: Z87.891 - Personal history of nicotine dependence Examination CT lung cancer screening History Screening examination performed for pulmonary nodules Technique Axial CT images of the chest using low-dose technique. Effective radiation dose total: 57.5 mGy-cm, CTDIvol 1.4 mGy. Referring provider counseled the patient on shared decision-making for LDCT screening. Additional counseling was provided on smoking cessation. Comparison: CT/SC/SR - CT LUNG SCREENING - 12/18/23 10:[address]/REG/SC/SR - CT CHEST WO IV CON - 12/28/22 07:52 EDT Findings: Lungs: Stable solid pulmonary nodules measuring up to 6 mm ( series 4, image 115 subpleural right lower lobe). Stable right middle lobe ground-glass opacity measuring 6 mm (series 4, image 74 and series 9, image 124 ). Mild paraseptal emphysema. Moderate centrilobular emphysema. Mild bronchial wall thickening. Mild amount of subsegmental atelectasis and/or linear scarring. Coronary artery calcifications: Moderate to severe status post CABG Other: None Limited upper abdomen: Unremarkable Impression: LungRADS 2 - Benign Appearance: Continue annual screening with low dose Chest CT in 12 months. ##L2# Category 1: Normal; continue annual screening Category 2: Benign appearance or behavior, continue annual screening Category 3: Probably benign, [address] recommended Category 4A: Suspicious, [address] recommended; may consider PET/CT Category 4B: Suspicious, Additional diagnostics and/or tissue sampling recommended Category 4X: Suspicious, Additional diagnostics and/or tissue sampling recommended Category 0: Recalls (incomplete screen due to Incomplete coverage, Noise, Respiratory motion, Expiration, Obscured by acute abnormality) This document has been electronically signed by: Lucy Arvizu MD on 12/22/2024 17:11:18
--- OUTSIDE RECORDS SUMMARY | 2024-12-22 10:15 | XMS_ITS | Encounter Summary ---
Author Organization [employer] Address [address] [facility] 7t [place] [address] Care Team Providers Care Microsoft Infrastructure Consultant Name Role Phone Susie Park MD Primary Care Provide r Reason for Visit * Reason Comments Med Refill Encounter Details Date Type Department Care Team (Late st Contact Info) Description 09/20/2023 Refill [facility] MEDICINE [address] [place], [place] [phone] Kacey Edwards MD [address] [place], [place] [phone] Otitis externa of both ears, unspecified chronicity, [...] as of this encounter Plan of Treatment Upcoming Encounters Date Type Department Care Team (Late st Contact Info) Description 12/26/2024 10:00 AM EDT Office Visit [facility] MEDICINE [address] [place] [phone] Chad Mello MD [address] [place] [phone] 03/12/2025 11:30 AM EDT Office Visit [facility] [address] [place] [phone] Susie Park MD [address] [place] [address] [phone] documented as of this encounter Visit Diagnoses Diagnosis Otitis externa of both ears, unspecified chronicity, unspecified type documented in this encounter Additional Health Concerns Assessment Noted Time PHQ-9 Depression Total Score: 8 10/24/19 23 11:22 AM EST documented as of this encounter Care Teams Microsoft Infrastructure Consultant Relationship Specialty Start Date End Date Susie Park MD [address] [place] [address] [phone] PCP - General Family Medicine 07/08/18 documented as of this encounter
--- OUTSIDE RECORDS SUMMARY | 2024-12-22 10:15 | XMS_ITS | Encounter Summary ---
Author Organization [employer] Address [address] [facility] [address] [place] [address] Care Team Providers Care Production Cell Leader Name Role Phone Susie Park MD Primary Care Provide r Encounter Details Date Type Department Care Team ([facility] st Contact Info) Description 09/03/2023 Orders Only [facility] [address] [place] [address] Susie Park MD [address] [place], [place] [phone] Social History Tobacco Use Types Packs/Day Years [...] Description 12/26/2024 10:00 AM EDT Office Visit [facility] [address] [place] [phone] Chad Mello MD [address] [place] [phone] 03/12/2025 11:30 AM EDT Office Visit [facility] [address] [place] [phone] Susie Park MD [address] [place] [address] documented as of this encounter Visit Diagnoses Not on filedocumented in this encounter Additional Health Concerns Assessment Noted Time PHQ-9 Depression Total Score: 8 10/24/19 23 11:22 AM EST documented as of this encounter Care Teams Production Cell Leader Relationship Specialty Start Date End Date Susie Park MD [address] [place] [phone] PCP - General Family Medicine 07/08/18 documented as of this encounter
--- OUTSIDE RECORDS SUMMARY | 2024-12-22 10:15 | XMS_ITS | Data Portability ---
Author Organization MD - [facility], Allergy Address [address] [facility] [address] [place] [address] Care Team Providers Care Ore Washer Name Role Phone VICTORIANO BHATTI Primary Care Provider Assessment Encounter Date Assessment [...] of new symptoms. Not available 09/19/2024 10:52:18 11/28/2024 11/28/2024 69-year-old male presents following right-sided acute otitis externa. Symptoms resolved with topical Ciprodex. Otologic exam demonstrates TMs are intact and middle ear spaces are well aerated. External auditory canals without obstruction or purulence. Hearing returned to baseline. Patient would like to return on a more convenient date for formal audiometric testing. [email or web address] Not available 11/28/2024 12:56:53 Plan of Treatment Reminders Order Date Submit Date Provider Last Modified By Organization Details Last Modified Time Details Appointments Hearing Test 2024 10:30A M Hearing Test Not available Not available Not available Establish ed 15 2024 11:00A M SANTOS ZIEGLER PA-C Not available Not available Not available Lab None recorded. Referral None recorded. Procedures None recorded. Surgeries None recorded. Imaging None recorded. Medication Orders ciproflox acin 0.3 %-dexamet hasone 0.1 % ear drops,viet pension 2024 025 [facility], [place]- , [address] [place], [place], [phone], 09/19/2024 10:42:25 fluocinol one acetonide oil 0.01 % ear drops 2023 024 [facility], [place]- , [address] [place], [id number], 06/19/2024 10:10:57 triamcino lone acetonide 0.1 % topical cream 2023 024 [facility], [place]- , [address] [place], [place], [id number], 06/19/2024 10:11:01 Patient TargetsNo targets recorded. Patient Instructions Encounter Date Encounter Id Patient Instructions Last Modified By Organization Details Last Modified Time 02/15/2024 [id number] Patient presents for cerumen removal. Successfully removed [...] and Address Organization Details Recorded Time Psoriasis 2288549 Active 2021 Psoriasis , unspecifi ed; Note: Date Diagnosed : 10/07/2021 1:51 PM (L40.9) Not Available [facility] 4 03:12:14 Bilateral diffuse otitis externa 78681523917 58206 Active 2022 Diffuse otitis externa, bilateral ; Note: Date Diagnosed : 12/19/2022 9:52 AM (H60.313) Not Available [facility] 4 03:12:13 Impacted cerumen in left ear 59478918837 86947 Active 2020 Impacted cerumen, left ear; Note: Date Diagnosed : 7:03 AM (H61.22) Not Available [facility] 4 03:12:13 Impacted cerumen in right ear 82527062006 89141 Active 2021 Impacted cerumen, right ear; Note: Date Diagnosed : 01/26/2022 1:41 PM (H61.21) Not Available [facility] 4 03:12:12 Impacted cerumen of bilateral ears 39732502598 39236 Active 2021 Impacted cerumen, bilateral ; Note: Date Diagnosed : 12/16/2021 1:50 PM (H61.23) Not Available [facility] 4 03:12:13 Diffuse otitis externa 96000081 Active 2022 Diffuse otitis externa, right ear; Note: Date Diagnosed : 2:49 PM (H60.311) ; Start Date : Diffuse otitis externa, left ear; Note: Date Diagnosed : 01/09/2023 10:45 AM (H60.312) Not Available [facility] 4 03:12:13 Chronic right myringiti s 82728153265 44863 Active 2020 Chronic myringiti s, right ear; Note: Date Diagnosed : 7:03 AM (H73.11) Not Available [facility] 4 03:12:14 Otorrhea of right ear 16616406649 95374 Active 2020 Otorrhea, right ear; Note: Date Diagnosed : 1 2:49 PM (H92.11) Not Available [facility] 4 03:12:14 Acute infective otitis externa 897629534 Active 2024 SANTA MIRANDA PA-C [address] [facility],[place] [address], [place], [address] , [facility] - [facility] 5 10:40:43 Problem Notes None recorded. Procedures Surgical History Date Name Laterality Status Provider Name and Address Organization Details Recorded Time 5 Cerumen removal without microscope bilat completed SANTA MIRANDA PA-C [address] [facility],[place] [address], [place], [address], [facility] - [facility] 09/19/2024 10:51:22 4 Cerumen removal without microscope bilat completed SANTA MIRANDA PA-C [address] [facility],[place] [address], [place], [address], [facility] - [facility] 06/19/2024 10:21:03 4 Cerumen removal without microscope bilat completed STACIE BRITOC [address] [facility],[place] [address], [place], [address], [facility] - [facility] 02/15/2024 13:26:19 Imaging Results None recorded. [...] mg tablet 06/19 completed Medicati on ID: [id number] B rand Name: acarbose Send Method: E-Prescr [...] mg tablet 06/19 completed Medicati on ID: [id number] B rand Name: tramadol Send Method: E-Prescr ibed Sub s Allowed: subs OK Medic ationGen ericName : tramadol Not Available Not Available Not Available quetiapin e 100 mg tablet 06/19 completed Medicati on ID: [id number] B rand Name: quetiapi ne Send Method: [...] affected area 06/19 completed Medicati on ID: [id number] D uration Value: 30 Brand Name: Mineral Oil Heavy Se nd Method: E-Prescr ibed Sub s Allowed: subs OK Yakelini al Instruct ion: 3 drops to each [...] a day 06/19 completed Medicati on ID: [id number] D uration Value: 14 Brand Name: hydrocor tisone 2.5% Sen d Method: E-Prescr ibed Sub s Allowed: subs MONA Ball al Instruct ion: to external ears Med [...] small amount 06/19 completed Medicati on ID: [id number] D uration Value: 14 Prescri bed By Name: HARIS Pulido nd Name: clotrima zole-bet amrisa roberts Send Method: E-Prescr ibed Sub s Allowed: [...] eye ointment 11/04 completed Medicati on ID: [id number] P rescribe d By Name: HARIS Pulido [...] a day 06/19 completed Medicati on ID: [id number] D uration Value: 14 Brand Name: hydrocor tisone S end Method: E-Prescr ibed Sub s Allowed: subs OK Medic ationGen ericName : hydrocor tisone Not Available Not Available Not Available albuterol sulfate HFA 90 mcg/actua tion aerosol inhaler active Not Available Not Available Not Available hydrocort isone 2.5 % topical ointment Apply a small amount once a day 06/19 completed Medicati on ID: [id number] D uration Value: 14 Brand Name: hydrocor tisone 2.5% Sen d Method: E-Prescr ibed Sub s Allowed: subs OK Speci al Instruct ion: to external ears Med icationG enericNa me: hydrocor tisone 2.5% Med ication ID: [id number] D uration Value: 14 Brand Name: hydrocor [...] topical ointment 11/07 completed Medicati on ID: [id number] P rescribe d By Name: HARIS Pulido nd Name: gentamic in Send Method: E-Prescr ibed Sub s Allowed: subs OK Specnatali al Instruct ion: Bring to next appointm ent for applicat ion Medi cationGe nericNam e: gentamic in Not Available Not Available Not Available mometason e 0.1 % topical cream 06/19 completed Medicati on ID: [id number] D uration Value: 10 Prescri bed By Name: HARIS Pulido nd Name: mometaso ne Send Method: E-Prescr ibed Sub s Allowed: subs MONA Ball al Instruct ion: Apply a small amount to external ear twice a day x 10 days Med icationG enericNa me: mometaso ne Not Available Not Available Not Available One Daily Multivita min tablet active Not Available Not Available Not Available TobraDex 0.3 %-0.1 % eye drops,viet pension 06/19 completed Medicati on ID: [id number] D uration Value: 14 Brand Name: TobraDex Send Method: E-Prescr ibed Sub s Allowed: subs MONA Ball al Instruct ion: Instill 4 drops in [...] mg tablet 06/19 completed Medicati on ID: [id number] B rand Name: Brilinta Send Method: E-Prescr ibed Sub s Allowed: subs OK Medic ationGen ericName : Brilinta Not Available Not Available Not Available UltiCare Pen Needle 32 gauge x 06/19 completed Not Available Not Available Not Available Anoro Ellipta 62.5 mcg-25 mcg/actua tion powder for inhalatio n active Not Available Not Available Not Available Trulicity 0.75 mg/0.5 mL subcutane ous pen injector active Not Available Not Available Not Available Brilinta 60 mg tablet 06/19 completed Not Available Not Available Not Available Narcan 4 mg/actuat ion nasal spray 2020 active Medicati on ID: [id number] B rand Name: Narcan S end Method: E-Prescr ibed Sub s Allowed: subs OK Medic ationGen ericName : Narcan Not Available Not Available Not Available Daily-Vit e (with folic acid) 400 mcg tablet active Not Available Not Available Not Available Vitals Date Recorded Body height Provider Name an d Address Organization Details Last Updated DateTime 11/28/2024 167.64 cm FREDINAND QUINONEZ [place] - [facility] 11/28/2024 11:37:12 Date Recorded Body height Body mass index (BMI) Body weight Provider Name and Address Organization Details Last Updated DateTime 02/15/2024 167.64 cm 27.9 kg/m2 36990.48 g Kacey Reyes [place] - [facility] 02/15/2024 13:06:56 Date Recorded Body height Body mass index (BMI) Body weight Provider Name and Address Organization Details Last Updated DateTime 06/19/2024 167.64 cm 27.9 kg/m2 47896.48 g Alondra Márquez MD - [facility] 06/19/2024 09:32:10 Date Recorded Body height Body mass index (BMI) Body weight Provider Name and Address Organization Details Last Updated DateTime 09/19/2024 167.64 cm 27.9 kg/m2 43631.48 g Mely Thornton [place] - [facility] 09/19/2024 10:34:07 Social History None recorded. Functional Status None recorded. Mental Status None recorded. Family History Nothing Reported. Medical History No medical history recorded. Past Encounters Encounter ID Performer Location Encounter Start Date Encounter Closed Date Diagnosis/Indication Diagnosis SNOMED-CT Code Diagnosis ICD10 Code Diagnosis Note [id number] STEPHANIA CORRIGAN MD [facility] [address] [address] 02/15/2024 12:43:54 02/15/2024 13:30:17 Impacted cerumen of bilateral ears [id number] 586279 H61.23 [id number] DAILY FUNES MD [facility] [address] [address] 06/19/2024 09:13:54 06/19/2024 10:12:40 Psoriasis 3167227 L40.9 Impacted c erumen of bilateral ears 0014076637 256695 H61.23 [id number] STEPHANIA CORRIGAN MD [facility] [address] [address] 09/19/2024 10:27:59 09/19/2024 10:47:34 Acute infective otitis externa 355571988 H60.391 Impacted c erumen of bilateral ears 8871266487 148963 H61.23 [id number] TEODORO AMADOR MD [facility] [address] [address] 11/28/2024 11:03:05 11/28/2024 11:51:45 Acute infective otitis externa 260414144 H60.391 Health Concerns Section Related Observation LastModified by Organization Detai ls LastModified Time None Recorded Concern Status LastModified by Organization Details LastModified Time None Recorded Advance Directives Directive None Recorded Payers Encounter Date Sequence Insurance Name Policy Number Policy Ruiz Covered Member ID Ruiz Member ID Guarantor Name 02/15/2024 1 [facility] - DOS ON OR AFTER 2022 - MEDICARE [place]V ANTAGE - PPO) Elio Calles [id number] Elio Calles 06/19/2024 1 [facility] - DOS ON OR AFTER 2022 - [place]V ANT[place] - [place]PO) Elio Stevan [id number] Elio Calles 09/19/2024 1 [facility] - DOS ON OR AFTER 2022 - [place] ANT[place] - [place]PO) Elio Stevan [id number] Elio Calles 11/28/2024 1 [facility] - DOS ON OR AFTER 2022 - [place] RE[place]V ANTAGE - PPO) Elio Stevan [id number] Elio Calles Notes Date Note Type Note Provider Name and Address Organization Details Recorded Time 02/15/2024 text/html 68-year-old male presents for evaluation of the ears. Denies change in hearing, otalgia, otorrhea. Using Vaseline and keeping ears dry in the shower, denies Q-tip use. STEPHANIA CUNNINGHAM MD [address] [place] [address], [phone], [facility] 02/15/2024 16:47:54 06/19/2024 text/html 69-year-old male presents for evaluation of the ears. He reports dry flaky skin in the left greater than right ear that he digs out with a fingernail. He has a history of psoriasis that has been flaring up lately he does not see dermatology. He denies otalgia, otorrhea, and change in hearing. DAILY FUNES MD [address] [place] [address], [address], [facility] 06/19/2024 17:32:09 09/19/2024 text/html 69-year-old male [...] otorrhea. STEPHANIA CUNNINGHAM MD [address] [facility],[address], [address], [facility] - [facility] 09/19/2024 12:41:03 11/28/2024 text/html 69-year-old male presents following right sided acute otitis externa. He trialed topical Ciprodex, and reports symptoms resolved. Hearing returned to baseline, but he is interested in returning for formal hearing evaluation. TEODORO AMADOR MD [address] [place] [address],[place] [address], [place], [address], [facility] 11/29/2024 09:22:49
--- OUTSIDE RECORDS SUMMARY | 2024-12-22 10:15 | XMS_ITS | Encounter Summary ---
Author Organization [employer] Address [address] [facility] [address] [place] [address] Care Team Providers Care Men'S Leather Dress Belt Maker Name Role Phone Susie Park MD Primary Care Provide r Reason for Visit * Reason Comments Med Refill Encounter Details Date Type Department Care Team (Late st Contact Info) Description 09/17/2024 Refill [facility] [address] [place], [place] [phone] Susie Park MD [address] [place] [address] Social History Tobacco Use Types Packs/Day Years [...] with others, in a hotel, in a jail, living outside on the street, on a [...] Description 12/26/2024 10:00 AM EDT Office Visit [facility] [address] [place] [phone] Chad Mello MD [address] [place] [address] 03/12/2025 11:30 AM EDT Office Visit [facility] [address] [place] [address] Susie Park MD [address] [place] [phone] documented as of this encounter Visit Diagnoses Not on filedocumented in this encounter Additional Health Concerns Assessment Noted Time PHQ-9 Depression Total Score: 9 04/14/20 24 10:39 AM EDT documented as of this encounter Care Teams Men'S Leather Dress Belt Maker Relationship Specialty Start Date End Date Susie Park MD [address] [place] [phone] PCP - General Family Medicine 07/08/18 documented as of this encounter
--- OUTSIDE RECORDS SUMMARY | 2024-12-22 10:15 | XMS_ITS | Encounter Summary ---
Author Organization [employer] Address [address] [facility] [address] [place] [address] Care Team Providers Care Data Communications Analyst Name Role Phone Susie Park MD Primary Care Provide r Encounter Details Date Type Department Care Team (Late Contact Info) Description 03/07/2023 Orders Only [facility] [address] [place] [address] Jodie Mejia MD [address] [place] [address] Psoriasis (Primary Dx) Social History Tobacco Use [...] Encounters Date Type Department Care Team (Late Contact Info) Description 12/26/2024 10:00 AM EDT Office Visit [facility] [address] [place] [phone] Chad Mello MD [address] [place], [place] [phone] 03/12/2025 11:30 AM EDT Office Visit [address] [phone] Susie Park MD [address] [place], [place] [phone] Scheduled Orders Name Type Priority Associated Diagnoses [...] documented as of this encounter Care Teams Data Communications Analyst Relationship Specialty Start Date End Date Susie Park MD [address] [place] [phone] PCP - General Family Medicine 07/08/18 documented as of this encounter
--- OUTSIDE RECORDS SUMMARY | 2024-12-22 10:15 | XMS_ITS | Clinical Summary ---
Author Organization [employer] Address 75 [facility] 7t [place] [address] Care Team Providers Care Curtain Drier Name Role Phone Susie Park MD Primary Care Provide r Allergies Active Allergy Reactions Criticality Noted Date Comments Ciprofloxacin Unknown 11/23/2010 Penicillins Unknown 11/23/2010 Medications cyclobenzaprine (Flexeril) 10 MG tabletIndication s:Pain take 1 tablet by oral route 3 [...] 80 g 5 023 Active ustekinumab (Stelara) injectionIndicat ions:Psoriasis Loading dose: Subcutaneous injection week 0 and week 4. Sending new Rx for continuing therapy. 45 mL 1 023 Active ustekinumab (Stelara) injectionIndicat ions:Psoriasis This Rx is for maintenance dosing to follow loading dose sent in separate Rx. 45 mL 4 023 Active Alcohol Swabs (B-D SINGLE USE SWABS REGULAR) pads Apply 100 each topically 3 times daily. Use twice daily as directed 100 each 023 Active Wixela Inhub 250-50 MCG/ACT aerosol powder INHALE 1 PUFF BY MOUTH TWICE A DAY ( MORNING AND EVENING) 60 each 1 023 Active calcipotriene (Dovonex) 0.005 % cream Apply topically 2 times daily. 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 place 1 tablet by sublingual route at the first sign of an attack; no more than 3 tabs are recommended within a 15 minute period. 90 tablet 024 Active halobetasol (UltraVATE) 0.05 % ointment Apply topically 2 times daily. 50 g 1 024 Active albuterol (2.5 MG/3ML) 0.083% nebulizer solution INHALE 3 MILLILITER BY NEBULIZATION ROUTE 3 TIMES EVERY DAY 90 mL 1 024 Active atorvastatin (Lipitor) 40 MG tabletIndication s:Type 2 diabetes mellitus with other specified complication, with long-term current use of insulin (CMS/HCC) Take 1 tablet (40 mg) by mouth Once per day. 30 tablet 11 024 2024 Active Diclofenac Sodium 1 % gelIndications:C hronic pain of both knees apply (2G) by topical route 2 times every day to the affected area(s) 90 g 024 Active dulaglutide (Trulicity) 0.75 MG/0.5ML solution pen-injector INJECT 0.5 ML EVERY WEEK IN ABDOMEN,THIGH OR UPPER ARM ROTATE SITES 2 mL 5 024 Active tamsulosin (Flomax) 0.4 MG 24 hr capsuleIndicatio ns:Benign prostatic hyperplasia with nocturia Take 1 capsule (0.4 mg) by mouth Once per day. 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 (CMS/HCC) TAKE 1 TABLET BY MOUTH EVERY NIGHT AT BEDTIME 28 tablet 5 024 Active Lantus SoloStar 100 UNIT/ML pen INJECT SUBCUTANEOUSLY 50 UNITS DAILY 15 mL 5 025 Active Trulicity 0.75 MG/0.5ML solution auto-injector INJECT 0.5 ML EVERY WEEK IN ABDOMEN,THIGH OR UPPER ARM ROTATE SITES 2 mL 1 025 Active albuterol 108 (90 Base) MCG/ACT inhaler INHALE 2 PUFFS BY MOUTH EVERY SIX HOURS NEEDED FOR WHEEZING 8.5 g 2 025 Active FreeStyle lancets USE TO TEST BLOOD SUGAR TWICE A DAY 100 each 11 025 Active glucose blood (FREESTYLE LITE) test stripIndications :Type 2 diabetes mellitus with other specified complication, with long-term current use of insulin ([facility]) TEST BLOOD SUGAR TWICE A DAY 100 each 025 Active insulin pen needle (UltiCare Micro Pen [place]) 32G x 4 mm misc USE DAILY WITH INSULIN 100 each 11 Active loratadine (Claritin) 10 MG tabletIndication s:Intrinsic eczema TAKE 1 TABLET BY MOUTH EVERY MORNING 28 tablet 5 025 Active acetaminophen (Tylenol 8 Hour) 650 MG ER tabletIndication s:Primary osteoarthritis of both knees take 1-2 tablet by oral route every 12 hours as needed swallowing whole with water. Do not break, crush, dissolve and/or chew. 90 tablet 1 025 Active nicotine (Nicoderm CQ) 14 MG/24HR patchIndications :Smoker Place 1 patch on the skin 1 (one) time each day at the same time. 30 patch 025 2024 Active insulin pen needle (UltiCare Micro Pen [place]) 32G x 4 mm misc Use daily to inject insulin 100 each 11 023 2024 Discontinued(R eorder (will not trigger notification to Pharmacy)) nicotine (Nicoderm CQ) 14 MG/24HR patchIndications :Smoker Place 1 patch on the skin 1 (one) time each day at the same time. 30 patch 024 2024 Discontinued(R eorder (will not trigger notification to Pharmacy)) loratadine (Claritin) 10 MG tabletIndication s:Intrinsic eczema TAKE 1 TABLET BY MOUTH EVERY MORNING 28 tablet 5 024 2024 Discontinued acetaminophen (Tylenol 8 Hour) 650 MG ER tabletIndication s:Primary osteoarthritis of both knees take 1-2 tablet by oral route every 12 hours as needed swallowing whole with water. Do not break, crush, dissolve and/or chew. 90 tablet 1 025 2024 Discontinued(R eorder (will not trigger notification to Pharmacy)) Active Problems Problem Noted Date Diagnosed Date Severe persistent asthma without complication Assessment & Plan (12/11/2024 10:41 AM EDT): Stable continue with same interventions Benign prostatic hyperplasia with nocturia 04/14 Precordial pain 09/24/2023 Assessment & Plan (09/24/2023 11:40 AM EST): EKG today no changes compared with EKG done on 08/21/22 nitroglycerin refilled If chest pain comes back go to ED or call ambulance Severe asthma 09/24/2023 Onychomycosis 05/29/2023 Viral upper respiratory tract infection 05/29/20 23 Assessment & Plan (05/29/2023 11:26 AM EDT): [...] PM EDT): Patient will be seen by jl Chronic pain of both knees 12/08/2022 Chronic [...] (08/31/2022 9:40 PM EST): Patient to call [facility] to schedule abd US, a VM had [...] knee 08/22/2022 Coronary artery disease invo lving douglas coronary artery of douglas heart with angina pectoris 08/22/2022 Assessment & Plan (12/11/2024 10:41 AM EDT): Continue to follow-up with cardiology Assessment & Plan (10/23/2023 2:42 PM EST): [...] nicoderm patch 14mcg and fu w PCP S/P CABG (coronary artery bypass graft) 01/03/20 18 HTN (hypertension), benign 06/20/2017 Assessment & Plan (12/11/2024 10:42 AM EDT): Today first blood pressure reading was slightly high second blood pressure reading was within normal limits I advised to continue with low-sodium diet and continue with same medication regimen Assessment & Plan (07/15/2024 11:36 AM EST): [...] fu in 1w. Benign prostatic hyperplasia 06/20/2017 Chronic low back pain 06/20/2017 COPD [...] fever, weakness or change in mental status. Hyperlipidemia 06/20/2017 Edentulous 06/20/2017 Paresthesia of upper limb 06/20/2017 Type 2 diabetes mellitus 06/20/2017 Assessment & Plan (12/11/2024 10:42 AM EDT): Diabetes is: controlled - Lab Results Component Value Date HGBA1C 6.8 (A) 12/11/2024 HGBA1C 7.1 (A) 07/15/2024 HGBA1C 8.0 (A) 04/14/2024 - Lab Results Component Value Date MICROALBUR 2.2 09/15/2020 CREATININE 0.96 11/05/2024 -Changes: None - Diabetic eye exam: Pending - Diabetic foot exam: Up-to-date - Continue lifestyle modifications - Continue current medications - Follow up: 3 months Assessment & Plan (07/15/2024 11:37 AM EST): [...] activity as tolerated. FU in x months. Mood disorder 02/21/2017 Assessment & Plan (12/11/2024 10:42 AM EDT): Patient has remained stable continue with same medication regimen and follow-up with psychiatrist Resolved Problems Problem Noted Date Diagnosed Date Resolved Date Stimulant dependence 02/19/2018 025 Benzodiazepine dependence, continuous 06/20/2017 12/11/2024 Chronic pulmonary embolism 06/20/2017 0 12/11/2024 Cocaine dependence in remission 02/21/2017 12/11/2024 Opioid dependence in remission 02/21/2017 12/11/2024 Encounters Date Type Department Care Team Description 12/11/2024 10:00 AM EDT Office Visit [facility] [address] [place] [address] Susie Park MD Type 2 diabetes mellitus with other specified complication, with long-term current use of insulin (CMS/HCC) (Primary Dx); HTN (hypertension), benign; Severe persistent asthma without complication; Mood disorder (CMS/HCC); 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 (CMS/HCC); Smoker 12/11/2024 Travel 12/10/2024 Refill [facility] [address] [place], [place] [phone] Susie Park MD Intrinsic eczema; Primary osteoarthritis of both knees 12/04/2024 Telephone [facility] [address] [place] [phone] Susie Park MD Chart Prep 12/03/2024 Telephone [facility] [address] [place] [phone] Susie Park MD 12/03/2024 Telephone [facility] [address] [place] [phone] Susie Park MD Appointment Request 11/25/2024 Refill [facility] [address] [place], [place] [phone] Susie Park MD 11/11/2024 Refill [facility] MED & PEDS [address] [place] [address] Susie Park MD Type 2 diabetes mellitus with other specified complication, with long-term current use of insulin ([facility]); Primary osteoarthritis of both knees 11/05/2024 Orders Only GENERIC EXTERNAL DATA DEPARTMENT Provider, Generic External Data 10/15/2024 Refill [facility] MED & PEDS [address] [place], [place] [phone] Susie Park MD 10/15/2024 Refill [facility] [address] [place] [address] Susie Park MD from Last 3 Months [...] the past 12 months, has t he [employer], gas, oil or water company threatened to [...] Sign Reading Time Taken Comments Blood Pressure 132/78 12/11/2024 10:28 AM EDT Pulse 85 12/11/2024 10:05 AM EDT Temperature 36.7 ??C (98 ??F) 12/11/2024 10: 05 AM EDT Respiratory Rate 20 12/11/2024 10:0 5 AM EDT Oxygen Saturation 98% 07/15/2024 10: 36 AM EST Inhaled Oxygen Concentration - - Weight 78.8 kg (173 lb 12.8 oz) 025 10:05 AM EDT Height 167.6 cm (5' 6 ) 12/11/2024 10:0 5 AM EDT Body Mass Index 28.05 12/11/2024 10:05 AM EDT Plan of Treatment Upcoming Encounters Date Type Department Care Team (Late st Contact Info) Description 12/26/2024 10:00 AM EDT Office Visit [facility] [address] [place] [phone] Chad Mello MD [address] [place] [phone] 03/12/2025 11:30 AM EDT Office Visit [facility] [address] [place] [phone] Susie Park MD [address] [place] [address] Health Maintenance Due Date Last Done Comments CT Colonography 1955 FIT DNA/Cologuard 1955 FIT 1955 FOBT 1955 Sigmoidoscopy 1955 RSV Patients and Patients Aged 60 years or older (1 - Risk 60-74 years 1-dose series) 2015 Diabetes: Urine Protein Screening 09/15/2021 09/15/2020 Zoster Vaccines (2 of 2) 04/16/2023 02/19/2023 Eye Exam 05/15/2023 05/15/2022 Diabetes: Foot Exam 12/09/2023 12/08/2022, 3 Influenza Vaccine (#1) 2024 04/23/2012, 2010 Depression Monitoring 10/15/2024 04/14/2024, 024 Depression Screening 04/14/2025 04/14/2024, 04/14/20 24 Lipid Panel 04/14/2025 04/14/2024, 03/27, 01/19/2021, Additional history exists Diabetes: Hemoglobin A1C 06/12/2025 025, 07/15/2024, 04/14/2024, Additional history exists Alcohol/Substance Use Screening 07/15/2025 07/15/2024 SDOH Screening 07/15/2025 07/15/2024 Tobacco Screening 12/11/2025 12/11/2024 Colonoscopy 04/12/2027 Colorectal Cancer Screening 04/12/2027 DTaP/Tdap/Td [...] Procedure Name Priority Date/Time Associated Diagnosis Comments POCT GLYCATED HEMOGLOBIN, TOTAL Routine 12/11/2024 10:07 AM EDT Type 2 diabetes mellitus with other specified complication, with long-term current use of insulin ([facility]) POCT GLUCOSE Routine 12/11/2024 10:06 AM EDT Type 2 diabetes mellitus with other specified complication, with long-term current use of insulin (CMS/HCC) CYTOPATH-CELL ENHANCED Routine 11/05/2024 4:21 PM EDT CREATININE, SERUM Routine 11/05/2024 11: 46 AM EDT UREA NITROGEN (BUN) Routine 11/05/2024 1 1:46 AM EDT LIPID PANEL, STANDARD Routine 04/14/2024 12:18 PM EDT HEPATITIS C ANTIBODY REFLEX Routine 03/12/2023 11:45 AM EDT ALBUMIN, RANDOM URINE W/CREATININE Routine 09/15/2020 8:43 AM EST from Last 3 Months or Most Recently Relevant to Health Maintenance Results * (ABNORMAL) POCT HGB A1C (12/11/2024 10:07 AM EDT) Hemoglobin A1C 6.8(A) 4.0 - 6.0 % QC Media Lot # [id number] Lot# Expiration Date Blood 12/11/2024 10:0 7 AM EDT Susie Cintron MD POINT OF CARE TEST EN TER/EDIT ORDERABLES Final Result * (ABNORMAL) POCT Glucose (12/11/2024 10:06 AM EDT) Glucose Blood, POC 224(A) 60 - 200 mg/dL QC Media Lot # [id number] Lot# Expiration Date Blood Capillary blood specimen / Unknown 12/11/2024 10:06 AM EDT Susie Cintron MD POINT OF CARE TEST EN TER/EDIT ORDERABLES Final Result * Cytopath-cell enhanced (11/05/2024 4:21 PM EDT) 11/05/2024 4:21 PM EDT 11/06/2024 7:30 AM EDT Veronica [facility] - 11/06/2024 5:20 PM EDT ----- ------- Name: Elio Calles ? Age/Sex: 69/M ? : 1955 Unit#: [id number] ?? Attend Dr: Ana Langley [facility] ?Re11/05/24 ?Status: DEP REF ? Location: .LAB ?Disch: ? ----- ------- SPEC : [id number] ? RECD: 11/06/24-729 ? STATUS: ??SOUT ? REQ NUM: [id number] ? JANI: 11/05/24-1621 ? SUBM DR: Ana Langley OPERATING ROOM RN-BC ? ENTERED: ??11/06/24 ?SP TYPE: Cytology ? OTHR DR: Susie Park MD ? ORDERED: ??Cyto-enhanced/2 ? Diagnosis ?? A. ??Urine: ??Negative for high-grade urothelial carcinoma. ? COMMENT: Examination of a monolayer preparation slide shows scattered benign superficial ?? squamous cells with bacteria, occasional benign urothelial cells with reactive changes, ?? degenerated cellular material, occasional inflammatory cells, and few red blood cells. ? B. ??Urine: ??Negative for high-grade urothelial carcinoma. ? COMMENT: Examination of a monolayer preparation slide shows many benign squamous cells, ?? scattered benign urothelial cells, rare groups of degenerated epithelial cells with ?? crystals (? tubular), occasional inflammatory cells, and occasional red blood cells. ?Clinical History Encounter for screening, unspecified ? Material Received ?? A. Urine ?? B. Urine ? Gross Description A. Received is 50 cc of clear yellow fluid from which a ThinPrep slide is prepared. B. Received is 45 cc of clear yellow fluid from which a ThinPrep slide is prepared. Copies To: ?? Susie Park MD ?? [facility] ?? [address] ?? [place] ?? [phone] ?? Ana Langley OPERATING ROOM RN-BC ?? [facility] ?? [address] [place] [address] [address] ?? [place] [address] ?? [phone] ?? [email or web address] ? CONTINUED ON NEXT PAGE ----- ------- Name: Elio Calles ? Age/Sex: 69/M ? : 1955 Unit#: [id number] ?? Attend Dr: Ana Langley ?Re11/05/24 ?Status: DEP REF ? Location: HO.LAB ?Disch: ? ----- ------- SPEC : [id number] ? RECD: 11/06/24 ? STATUS: ??SOUT ? REQ NUM: [id number] ? JANI: 11/05/24-1620 ? SUBM DR: Ana Langley ? ENTERED: ??11/06/24-828 ?SP TYPE: Cytology ? OTHR DR: Susie Park MD ? ORDERED: ??Cyto-enhanced/2 ? ----- ------- Signed (signature on file) Jessica Blackwell 11/06/241719 ? ----- ------- ? END OF REPORT ? us Generic External Data Provider LAB CYTOLOGY AMIRAH CLAY Final Result [facility] [address] [place] [address] [phone] * Creatinine, Serum (11/05/2024 11:46 AM EDT) Creatinine, Serum 0.96 0.5 - 1.4 mg/dL [facility] Estimated Glomerular Filt Rate >60 [facility] Comment:Chronic Kidney Disea se: Estimated GFR < 60 mL/min/[id number] Kidney Disease: Estimated GFR < 15 mL/min/1.73m2 11/05/2024 11:4 6 AM EDT 11/05/2024 11:46 AM EDT us Generic External Data Provider LAB BLOOD ORDERAB LES Final Result Performing Organization Address City/[facility]/ZIP Co de Phone Number [facility] [address] [place] [phone] * BUN (Blood Urea Nitrogen) (11/05/2024 11:46 AM EDT) Urea Nitrogen (BUN) 15 9 - 16 mg/dL [facility] 11/05/2024 11:4 6 AM EDT 11/05/2024 11:46 AM EDT us Generic External Data Provider LAB BLOOD ORDERAB LES Final Result Performing Organization Address City/[facility] Co de Phone Number [facility] [address] [place] [phone] * (ABNORMAL) Lipid Panel, Standard (04/14/2024 12:18 PM EDT) Triglycerides 154(H) <150 mg/dL [facility] Comment:Desirable Triglyceri de: less than 150 mg/dLBorderline High Triglyceride 150-199 mg/dLHigh Triglyceride: 200-499 mg/dLVery High Triglyceride: greater than or equal to 5OO mg/dL Cholesterol 230(H) <200 mg/dL [facility] Comment:Desirable Cholestero l: less than 200 mg/dLBorderline High Cholesterol: 200-239 mg/dLHigh Cholesterol: greater than 239 mg/dL LDL Cholesterol Calculated 159(H) <100 mg/dL [facility] Comment:Desirable LDL: less than 100 mg/dLNear Optimal/Above Optimal LDL: 110- 129 mg/dLBorderline High LDL: 130-159 mg/dLHigh LDL: 160-189 mg/dLVery High LDL: greater than or equal to 190 mg/dL HDL Cholesterol 41 >40 mg/dL [facility] Comment:Desirable HDL: great er than 40 mg/dL Note: This HDL assay may give artificially low results in patients with liver disease. 04/14/2024 12:1 8 PM EDT 04/14/2024 1:15 PM EDT Generic External Data Provider LAB BLOOD ORDERAB LES Final Result Performing Organization Address [facility] de Phone Number [facility] [address] [place] [phone] * Hepatitis C Antibody Reflex (03/12/2023 11:45 AM EDT) Hepatitis C Antibody Nonreactive Nonreactive [facility] Comment:Antibodies to HCV no t detected; does not exclude early acuteHCV infection. 03/12/2023 11:4 5 AM EDT 03/12/2023 1:40 PM EDT [facility] External Provider LAB BLO OD ORDERABLES Final Result Performing Organization Address [facility] Phone Number [facility] [address] [place] [phone] * ALBUMIN, RANDOM URINE W/CREATININE (09/15/2020 [...] Creatinine, Urine 151 20 - 320 mg/dL [facility] 09/15/2020 8:43 AM EST Susie Cintron MD LAB URINE ORDERABLES Final Result [facility] [address] from Last 3 Months or Most Recently Relevant to Health Maintenance Insurance [facility] RESIDENTIAL OPTIONS (HMO D-SNP) [facility] [place] [phone] Care Teams Curtain Drier Relationship Specialty Start Date End Date Susie Park MD [address] [place] [phone] PCP - General Family Medicine 07/08/18
--- OUTSIDE RECORDS SUMMARY | 2024-12-22 10:15 | XMS_ITS | Encounter Summary ---
Author Organization [employer] Address [address] [facility] 7t [place] [address] Care Team Providers Care Apartment Leasing Consultant Name Role Phone Susie Park MD Primary Care Provide r Reason for Visit * Reason Onset Date Comments Nurse Triage 10/18/2023 Encounter Details Date Type Department Care Team ([facility] st Contact Info) Description 10/18/2023 Telephone [facility] [address] [place], [place] [phone] Susie Park MD [address] [place], [place] [phone] Nurse Triage Social History Tobacco Use Types [...] and daughter advised of disposition, agree to [facility] now for exam due to CP [...] documented in this encounter Plan of Treatment Upcoming Encounters Date Type Department Care Team (Late st Contact Info) Description 12/26/2024 10:00 AM EDT Office Visit [address] [phone] Chad Mello MD [address] [place] [address] [phone] 03/12/2025 11:30 AM EDT Office Visit [address] [phone] Susie Park MD [address] [place] [address] [phone] documented as of this encounter Visit Diagnoses Not on filedocumented in this encounter Additional Health Concerns Assessment Noted Time PHQ-9 Depression Total Score: 8 10/24/19 23 11:22 AM EST documented as of this encounter Care Teams Apartment Leasing Consultant Relationship Specialty Start Date End Date Susie Park MD [address] [place] [address] [phone] PCP - General Family Medicine 07/08/18 documented as of this encounter
--- OUTSIDE RECORDS SUMMARY | 2024-12-22 10:15 | XMS_ITS | Encounter Summary ---
Author Organization [facility] Address [address] [facility] 7t [place] [address] Care Team Providers Care [place] [place] Utility Worker Name Role Phone Susie Park MD Primary Care Provide r Encounter Details Date Type Department Care Team ([facility] Contact Info) Description 08/30/2022 Abstract [facility] [address] [place] [address] [phone] Susie Park MD [address] [place], [place] [phone] Social History Tobacco Use Types Packs/Day Years [...] Upcoming Encounters Date Type Department Care Team ([facility] Contact Info) Description 12/26/2024 10:00 AM EDT Office Visit [facility] [address] [place] [address] [phone] Chad Mello MD [address] [place], [place] [phone] 03/12/2025 11:30 AM EDT Office Visit [facility] [address] [place], [place] [phone] Susie Park MD [address] [place], [place] [phone] documented as of this encounter Visit Diagnoses Not on filedocumented in this encounter Additional Health Concerns Assessment Noted Time PHQ-9 Depression Total Score: 17 022 9:43 AM EST documented as of this encounter Care Teams [employer] Utility Worker Relationship Specialty Start Date End Date Susie Park MD [address] [place] [address] [phone] PCP - General Family Medicine 07/08/18 documented as of this encounter
--- OUTSIDE RECORDS SUMMARY | 2024-12-22 10:15 | XMS_ITS | Encounter Summary ---
Author Organization [employer] Address [address] [facility] 7t [place] [address] Care Team Providers Care Top Ironer Name Role Phone Susie Park MD Primary Care Provide r Reason for Visit * Reason Comments Med Refill Encounter Details Date Type Department Care Team (Late st Contact Info) Description 08/19/[address] [facility]S [address] [place], [place] [phone] Susie Park MD [address] [place] [address] Social History Tobacco Use Types Packs/Day Years [...] with others, in a hotel, in a long-term, living outside on the street, on a [...] Description 12/26/2024 10:00 AM EDT Office Visit [facility] [address] [place] [phone] Chad Mello MD [address] [place] [phone] 03/12/2025 11:30 AM EDT Office Visit [facility] [address] [place] [phone] Susie Park MD [address] [place] [phone] documented as of this encounter Visit Diagnoses Not on filedocumented in this encounter Additional Health Concerns Assessment Noted Time PHQ-9 Depression Total Score: 9 04/14/20 24 10:39 AM EDT documented as of this encounter Care Teams Top Ironer Relationship Specialty Start Date End Date Susie Park MD [address] [place] [phone] PCP - General Family Medicine 07/08/18 documented as of this encounter
--- OUTSIDE RECORDS SUMMARY | 2024-12-22 10:15 | XMS_ITS | Encounter Summary ---
Author Organization [employer] Address [address] [facility] 7t [place] [address] Care Team Providers Care Bowling Alley Floors Installer Name Role Phone Susie Park MD Primary Care Provide r Reason for Visit * Reason Comments Med Refill Encounter Details Date Type Department Care Team (Late st Contact Info) Description 10/15/2024 Refill [facility] [address] [place], [place] [phone] Susie Park MD [address] [place] [phone] Social History Tobacco Use Types Packs/Day Years [...] Description 12/26/2024 10:00 AM EDT Office Visit [facility] [address] [place] [phone] Chad Mello MD [address] [place] [phone] 03/12/2025 11:30 AM EDT Office Visit [facility] [address] [place] [phone] Susie Park MD [address] [place] [phone] documented as of this encounter Visit Diagnoses Not on filedocumented in this encounter Additional Health Concerns Assessment Noted Time PHQ-9 Depression Total Score: 9 04/14/20 24 10:39 AM EDT documented as of this encounter Care Teams Bowling Alley Floors Installer Relationship Specialty Start Date End Date Susie Park MD [address] [place] [phone] PCP - General Family Medicine 07/08/18 documented as of this encounter
--- OUTSIDE RECORDS SUMMARY | 2024-12-22 10:15 | XMS_ITS | Encounter Summary ---
Author Organization [employer] Address [address] [facility] 7t [place] [address] Care Team Providers Care Duplicating Machine Mechanic Name Role Phone Susie Park MD Primary Care Provide r Reason for Visit * Reason Comments Med Refill Encounter Details Date Type Department Care Team (Late st Contact Info) Description 09/26/2023 Refill [facility] [address] [place], [place] [phone] Susie Park MD [address] [place], [place] [phone] Coronary artery disease involving [place] coronary artery of [place] heart with angina pectoris (CMS/HCC) Social History [...] 10:00 AM EDT Office Visit [facility] [address] [place] [phone] Chad Mello MD [address] [place] [phone] 03/12/2025 11:30 AM EDT Office Visit [facility] [address] [place] [phone] Susie Park MD [address] [place] [phone] documented as of this encounter Visit Diagnoses Diagnosis Coronary artery disease involving [place] coronary artery of [place] heart with angina pectoris ([facility]/HCC) documented in this encounter Additional Health Concerns Assessment Noted Time PHQ-9 Depression Total Score: 8 10/24/19 23 11:22 AM EST documented as of this encounter Care Teams Duplicating Machine Mechanic Relationship Specialty Start Date End Date Susie Park MD [address] [place] [address] [phone] PCP - General Family Medicine 07/08/18 documented as of this encounter
== END 2024-12-22 09:20 | disposition home or self-care (01) ==
LOC: HO.CT 09:19
PROVIDERS: PCP Internal Medicine; Visit Provider Internal Medicine Pulmonary Disease
DX: Z12.2 Encounter for screening for malignant neoplasm of respiratory organs (principal); Z87.891 Personal history of nicotine dependence
CPT/HCPCS: 71271

== ENCOUNTER → 2024-12-22 09:22 | Outpatient (BNV) | payer OTHER, SELFPAY | PROVIDERS: PCP Internal Medicine; Visit Provider Radiology Diagnostic Radiology | DX: Z87.891 Personal history of nicotine dependence (principal) | CPT/HCPCS: 71271 ==

== ENCOUNTER 2024-12-24 12:39 | Outpatient (AMB) | payer OTHER, SELFPAY ==
[2024-12-24 13:17] VITALS: BP 110/60; PULSE 80; O2SAT 97; BMI 28.1
--- NOTE | 2024-12-24 13:17 | MHC.OFFVIS ---
Vital Signs 12/24/24 13:17 Height 5 ft 6 in Weight 174 lb BMI 28.1 BP 110/60 Blood Pressure Location Lt brachial Position Sitting Pulse 80 Pulse Source Doppler Pulse Oximetry (%) 97 Oxygen Delivery Method Room Air Intake Visit Reasons: COPD Allergies Penicillins Allergy (Mild, Verified 12/24/24 13:19) RASH ciprofloxacin [From Cipro] Allergy (Unknown, Verified 12/24/24 13:19) RASH HPI HPI COPD: Details: 69-year-old gentleman, active 50+ pack-year smoker, followed for underlying moderate COPD , MARU, and pulmonary nodules.? His follow-up CT chest scan showed stable pulmonary nodules.? Patient continues on Anoro with good control of his underlying symptoms. Patient has received his CPAP machine and continues to work on compliance with his CPAP therapy. [facility] Medical History Abnormal CT scan, gastrointestinal tract Memory difficulties On anticoagulant therapy On beta russ at home Angina of effort HLD (hyperlipidemia) HTN (hypertension) COPD (chronic obstructive pulmonary disease) Arthritis Diabetes mellitus, type 2 Coronary artery disease Dizziness Peripheral vascular disease Surgical History Hx of colonoscopy S/P cardiac catheterization (~12/2020) S/P cardiac cath (~04/2020) Stented coronary artery S/P cardiac cath (~08/2019) S/P CABG x 3 (~09/2018) H/O coronary artery bypass surgery Social History Household Members: Children Housing: House Alcohol intake: current Alcohol intake frequency: holidays/special occasions only Patient Tobacco Use Status: Current everyday Tobacco user Tobacco use type: Cigarette Cigarette Packs Per Day: 1 Cigarettes Per Day: 8 Advance Directives Date on File: 04/24/22 service: No Current occupational status: disabled Review of Systems Const Denies daytime sleepiness, Denies excessive sweating, Denies fatigue, Denies fever(s), Denies lethargy, Denies malaise, Denies night sweats, Denies snoring and Denies weight loss Eyes Denies blurry vision and Denies itchy eyes ENT Denies nasal congestion, Denies post nasal drip, Denies sinus pain, Denies sinus pressure and Denies other ( Thrush) Card Denies chest pain, Denies pedal edema, Denies dyspnea, Denies orthopnea and Denies paroxysmal nocturnal dyspnea Resp Denies cough, Denies hemoptysis, Denies excessive phlegm production, Denies dyspnea, Denies snoring and Denies wheezing GI Denies abdominal pain and Denies heartburn Musc Denies myalgias, Denies arthralgias and Denies joint swelling Skin/Breast Denies rash Neuro Denies memory loss and Denies seizure-like activity Psych Denies abnormal sleep pattern, Denies anxiety and Denies memory loss Endo Denies excessive sweating, Denies fatigue and Denies heat intolerance Prasanth/Lymph Denies easy bruising Aller/Immun Denies itchy eyes, Denies seasonal rhinorrhea and Denies wheezing Physical Exam Vital Signs: Last Vital Signs Pulse 80 12/24/24 13:17 BP 110/60 12/24/24 13:17 Pulse Ox 97 12/24/24 13:17 Oxygen Delivery Method Room Air 12/24/24 13:17 BMI result Body Mass Index 28.1 Const General: no acute distress and alert Nutritional Appearance: not obese Orientation/consciousness: Other orientation findings ( oriented) HEENT Head: Yes atraumatic Eyes General: appearance normal, both eyes and all related structures Sclerae: sclerae normal EOM: EOMs intact bilaterally Neck Neck: Yes supple Lymphatic: no lymphadenopathy noted Resp Effort & Inspection: normal respiratory effort and no use of accessory muscles Auscultation: clear to auscultation bilaterally Cardio Rate: regular rate Rhythm: regular rhythm Heart sounds: no gallops, no murmurs and no rubs Skin General skin exam: other ( warm) Extrem General: No clubbing, No cyanosis and No edema Assessment & Plan Assessment & Plan (1) COPD (chronic obstructive pulmonary disease): Code(s): J44.9 - Chronic obstructive pulmonary disease, unspecified Category: Medical Plan: Well controlled on Anoro and albuterol MDI/nebs. Continue current regimen. (2) Personal history of nicotine dependence: Code(s): Z87.891 - Personal history of nicotine dependence Category: Medical Plan: Results of lung cancer screening CT chest reviewed, no worrisome nodules. Continue with yearly screening, next in November of 2025. (3) MARU on CPAP: Code(s): G47.33 - Obstructive sleep apnea (adult) (pediatric); Z99.89 - Dependence on other enabling machines and devices Category: Medical Plan: Patient continues to work on improving compliance with his CPAP therapy. Coding Level of Care Code Est Pt Level 4 (66382) Complex EM visit Add On G2211 Diagnoses COPD (chronic obstructive pulmonary disease) J44.9 Personal history of nicotine dependence Z87.891 MARU on CPAP G47.33; Z99.89
--- OUTSIDE RECORDS SUMMARY | 2024-12-24 13:52 | XMS_ITS | Encounter Summary ---
Author Organization [employer] Address [address] [facility] 7t [place] [address] Care Team Providers Care Flex O Writer Operator Name Role Phone Susie Park MD Primary Care Provide r Encounter Details Date Type Department Care Team ([facility] st Contact Info) Description 09/03/2023 Orders Only [facility] [address] [place] [address] Susie Park MD [address] [place], [place] [phone] Social History Tobacco Use Types Packs/Day Years [...] 10:00 AM EDT Office Visit [facility] [address] [place] [phone] Chad Mello MD [address] [place] [phone] 03/12/2025 11:30 AM EDT Office Visit [facility] [address] [place] [phone] Susie Park MD [address] [place] [phone] documented as of this encounter Visit Diagnoses Not on filedocumented in this encounter Additional Health Concerns Assessment Noted Time PHQ-9 Depression Total Score: 8 10/24/19 23 11:22 AM EST documented as of this encounter Care Teams Flex O Writer Operator Relationship Specialty Start Date End Date Susie Park MD [address] [place] [phone] PCP - General Family Medicine 07/08/18 documented as of this encounter
--- OUTSIDE RECORDS SUMMARY | 2024-12-24 13:52 | XMS_ITS | Encounter Summary ---
Author Organization [employer] Address [address] [facility] 7[address] [place] [address] Care Team Providers Care Denture Technician Name Role Phone Susie Park MD Primary Care Provide r Reason for Visit * Reason Onset Date Comments Nurse Triage 10/18/2023 Encounter Details Date Type Department Care Team ([facility] st Contact Info) Description 10/18/2023 Telephone [facility] [address] [place], [place] [phone] Susie Park MD [address] [place], [place] [phone] Nurse Triage Social History Tobacco Use Types [...] and daughter advised of disposition, agree to [facility] now for exam due to CP [...] Description 12/26/2024 10:00 AM EDT Office Visit [address] [phone] Chad Mello MD [address] [place] [address] [phone] 03/12/2025 11:30 AM EDT Office Visit [address] [phone] Susie Park MD [address] [place] [address] [phone] documented as of this encounter Visit Diagnoses Not on filedocumented in this encounter Additional Health Concerns Assessment Noted Time PHQ-9 Depression Total Score: 8 10/24/19 23 11:22 AM EST documented as of this encounter Care Teams Denture Technician Relationship Specialty Start Date End Date Susie Park MD [address] [place] [address] [phone] PCP - General Family Medicine 07/08/18 documented as of this encounter
--- OUTSIDE RECORDS SUMMARY | 2024-12-24 13:52 | XMS_ITS | Clinical Summary ---
Author Organization [employer] Address [address] [facility] 7t [place] [address] Care Team Providers Care Assistant Store Manager Operations Name Role Phone Susie aPrk MD Primary Care Provide r Allergies Active [...] MG SL tabletIndication s:Coronary artery disease involving [place] coronary artery of [place] heart with angina pectoris (CMS/HCC) Place 1 [...] MG EC tabletIndication s:Coronary artery disease involving [place] coronary artery of [place] heart with angina pectoris (CMS/HCC) TAKE 1 [...] complication, with long-term current use of insulin ([facility]) TEST BLOOD SUGAR TWICE A DAY 100 each 025 Active insulin pen needle (UltiCare Micro Pen [place]) 32G x 4 mm misc USE DAILY [...] Active insulin pen needle (UltiCare Micro Pen [place]) 32G x 4 mm misc Use daily [...] (08/31/2022 9:40 PM EST): Patient to call [facility] to schedule abd US, a VM had [...] knee 08/22/2022 Coronary artery disease invo lving [place] coronary artery of [place] heart with angina pectoris 08/22/2022 Assessment & [...] Encounters Date Type Department Care Team Description 12/22/2024 Orders Only [facility] External Provider, [facility] 12/11/2024 10:00 AM EDT Office Visit [facility] [address] [place] [address] Susie Park MD Type 2 diabetes mellitus with other specified complication, with long-term current use of insulin (CMS/HCC) (Primary Dx); HTN (hypertension), benign; Severe persistent asthma without complication; Mood disorder (CMS/HCC); Coronary artery disease involving [place] coronary artery of [place] heart with angina pectoris (CMS/HCC); Smoker 12/11/2024 Travel 12/10/2024 Refill [facility] [address] [place] [address] Susie Park MD Intrinsic eczema; Primary osteoarthritis of both knees 12/04/2024 Telephone [facility] [address] [place] [phone] Susie Park MD Chart Prep 12/03/2024 Telephone [facility] [address] [place] [address] Susie Park MD 12/03/2024 Telephone [facility] [address] [place] [address] Susie Park MD Appointment Request 11/25/2024 Refill [facility] [address] [place] [address] Susie Park MD 11/11/2024 Refill [facility] [address] [place] [address] Susie Park MD Type 2 diabetes mellitus with other specified complication, with long-term current use of insulin ([facility]); Primary osteoarthritis of both knees 11/05/2024 Orders Only GENERIC EXTERNAL DATA DEPARTMENT Provider, Generic External Data 10/15/2024 Refill [facility] PEDS [address] [place] [address] Susie Park MD 10/15/2024 Refill [facility] [address] [place] [address] Susie Park MD from Last 3 Months [...] Description 12/26/2024 10:00 AM EDT Office Visit [facility] [address] [place] [address] Chad Mello MD [address] [place] [address] 03/12/2025 11:30 AM EDT Office Visit [facility] [address] [place] [address] Susie Park MD [address] [place], [place] [phone] Health Maintenance Due Date Last Done Comments [...] Influenza Vaccine (#1) 2024 04/23/2012, 2010 Depression Screening 04/14/2025 04/14/2024, 04/14/20 24 Lipid [...] Procedure Name Priority Date/Time Associated Diagnosis Comments LDCT LUNG SCREENING Routine 12/22/2024 5 :11 PM EDT POCT GLYCATED HEMOGLOBIN, TOTAL Routine 12/11/2024 10:07 AM EDT Type 2 diabetes mellitus with other specified complication, with long-term current use of insulin (CMS/HCC) POCT GLUCOSE Routine 12/11/2024 10:06 AM EDT [...] Recently Relevant to Health Maintenance Results * CT Lung Screening Low dose (12/22/2024 5:11 PM EDT) Anatomical Region Laterality Modality Lung Computed Tomogra phy 12/22/2024 5:11 PM EDT Narrative 12/22/2024 5:13 PM EDT ? [facility] ?[address] ?[place] [address] ? CT Scan Report ? Signed ? Patient: Elio Calles ?MR#: [id number] ?? 20 ? : 1955 ?Acct:[id number] ? Age/Sex: 69 / M ?ADM Date: 04/28/25 ? Loc: HO.CT ? Attending Dr: William Rock MD ? Ordering Physician: William Rock MD ?? Date of Service: 12/22/24 ?? Procedure(s): CT lung screening ?? Accession Number(s): [id number] ? cc: Susie Park MD; William Rock MD ? Report Number: ?? [id number]: Total DLP = ?? 58.00 mGy-cm ? CLINICAL HISTORY: Z87.891 - Personal history of nicotine dependence ? Examination CT lung cancer screening ? History Screening examination performed for pulmonary nodules ? Technique Axial CT images of the chest using low-dose technique. Effective ?? radiation dose total: 57.5 mGy-cm, CTDIvol 1.4 mGy. Referring provider ?? counseled the patient on shared decision-making for LDCT screening. ?? Additional counseling was provided on smoking cessation. ? Comparison: CT/IL/SR - CT LUNG SCREENING - 12/18/23 10:11 EDT ?? CT/REG/IL/SR - CT CHEST WO IV CON - 12/28/22 07:52 EDT ? Findings: ?? Lungs: Stable solid pulmonary nodules measuring up to 6 mm ( series 4, ?? image 115 subpleural right lower lobe). Stable right middle lobe ?? ground-glass opacity measuring 6 mm (series 4, image 74 and series 9, ?? image 124 ). Mild paraseptal emphysema. Moderate centrilobular emphysema. ?? Mild bronchial wall thickening. Mild amount of subsegmental atelectasis ?? and/or linear scarring. ? Coronary artery calcifications: Moderate to severe status post CABG ? Other: None ? Limited upper abdomen: Unremarkable ? Impression: LungRADS 2 - Benign Appearance: Continue annual screening with ?? low dose Chest CT in 12 months. ? ##L2# ? Category 1: Normal; continue annual screening ?? Category 2: Benign appearance or behavior, continue annual screening ?? Category 3: Probably benign, [address] recommended ?? Category 4A: Suspicious, [address] recommended; may consider PET/CT ?? Category 4B: Suspicious, Additional diagnostics and/or tissue sampling ?? recommended ?? Category 4X: Suspicious, Additional diagnostics and/or tissue sampling ?? recommended ?? Category 0: Recalls (incomplete screen due to Incomplete coverage, Noise, ?? Respiratory motion, Expiration, Obscured by acute abnormality) ? This document has been electronically signed by: Lucy Arvizu MD ?? on 12/22/2024 17:11:18 ? Dictated By: ?Lucy Max MD ? Signed By: ?<Electronically signed by Lucy Max MD in OV> ? 12/22/241711 ? DD/ 10 ? TD/TT: 12/22/24 1711 ? Airport Traffic Controller: ? Procedure Note Donotrohaninterpreter, Image - 12/22/[address] [address] [address] Scan Report Signed Patient: Jerome Calles#: [id number] 20 : 5Acct:[id number] Age/Sex: 69 / MADM Date: 12/22/24 Loc: HO.CT Attending Dr: William Rock MD Ordering Physician: William Rock MD Date of Service: 12/22/24 Procedure(s): CT lung screening Accession Number(s): [id number] cc: Susie Park MD; William Rock MD Report Number: [id number]: Total DLP = 58.00 mGy-cm CLINICAL HISTORY: Z87.891 - Personal history of nicotine dependence Examination CT lung cancer screening History Screening examination performed for pulmonary nodules Technique Axial CT images of the chest using low-dose technique. Effective radiation dose total: 57.5 mGy-cm, CTDIvol 1.4 mGy. Referring provider counseled the patient on shared decision-making for LDCT screening. Additional counseling was provided on smoking cessation. Comparison: CT/IL/SR - CT LUNG SCREENING - 12/18/23 10:[address]/REG/IL/SR - CT CHEST WO IV CON - 12/28/22 07:52 EDT Findings: Lungs: Stable solid pulmonary nodules measuring up to 6 mm ( series 4, image 115 subpleural right lower lobe). Stable right middle lobe ground-glass opacity measuring 6 mm (series 4, image 74 and series 9, image 124 ). Mild paraseptal emphysema. Moderate centrilobular emphysema. Mild bronchial wall thickening. Mild amount of subsegmental atelectasis and/or linear scarring. Coronary artery calcifications: Moderate to severe status post CABG Other: None Limited upper abdomen: Unremarkable Impression: LungRADS 2 - Benign Appearance: Continue annual screening with low dose Chest CT in 12 months. ##L2# Category 1: Normal; continue annual screening Category 2: Benign appearance or behavior, continue annual screening Category 3: Probably benign, [address] recommended Category 4A: Suspicious, [address] recommended; may consider PET/CT Category 4B: Suspicious, Additional diagnostics and/or tissue sampling recommended Category 4X: Suspicious, Additional diagnostics and/or tissue sampling recommended Category 0: Recalls (incomplete screen due to Incomplete coverage, Noise, Respiratory motion, Expiration, Obscured by acute abnormality) This document has been electronically signed by: Lucy Arvizu MD on 12/22/2024 17:11:18 Dictated By: Lucy Max MD Signed By: <Electronically signed by Lucy Max MD in OV> 12/22/241711 DD/ 10 TD/TT: 12/22/241710 Airport Traffic Controller: [facility] External Provider IMG CT PROCEDURES Final Result * (ABNORMAL) POCT HGB A1C (12/11/2024 10:07 AM EDT) Pathologist [facility] Hemoglobin A1C 6.8(A) 4.0 - 6.0 % QC Media Lot # [id number] Lot# Expiration Date Blood 12/11/2024 10:0 7 AM EDT Susie Cintron MD POINT OF CARE TEST EN TER/EDIT ORDERABLES Final Result * (ABNORMAL) POCT Glucose (12/11/2024 10:06 AM EDT) Pathologist [facility] Glucose Blood, POC 224(A) 60 - 200 mg/dL QC Media Lot # [id number] Lot# Expiration Date ,231,258 Blood Capillary blood specimen / Unknown 12/11/2024 10:06 AM EDT us Susie Moy Alejandro Cintron MD POINT OF CARE TEST EN TER/EDIT ORDERABLES Final Result * Cytopath-cell enhanced (11/05/2024 4:21 PM EDT) 11/05/2024 4:21 PM EDT 11/06/2024 7:30 AM EDT Narrative [facility] - 11/06/2024 5:20 PM EDT ----- ------- Name: Elio Calles ? Age/Sex: 69/M ? : 1955 Unit#: [id number] ?? Attend Dr: Ana Langley [facility] ?Re11/05/24 ?Status: DEP REF ? Location: HO.LAB ?Disch: ? ----- ------- SPEC : [id number] ? RECD: 11/06/24 ? STATUS: ??SOUT ? REQ NUM: [id number] ? JANI: 11/05/24 ? SUBM DR: Ana Langley DIRECTOR OF AUDIOLOGY-BC ? ENTERED: ??11/06/24 ?SP TYPE: Cytology ? [...] To: ?? Susie Park MD ?? [facility] ?? [address] [facility] ?? [place] [address] ?? [phone] ?? Ana Langley ?? [facility] Urology Services ?? [address] ?? [place] [address] ?? [phone] ?? [email or web address] ? CONTINUED ON NEXT PAGE ----- ------- Name: Elio Calles ? Age/Sex: 69/M ? : 1955 Unit#: [id number] ?? Attend Dr: Ana Langley ?Re11/05/24 ?Status: DEP REF ? [facility] ?Disch: ? ----- ------- SPEC : [id number] ? RECD: 11/06/24 ? STATUS: ??SOUT ? REQ NUM: [id number] ? JANI: 11/05/24-1620 ? SUBM DR: Ana Langley [facility]- ? ENTERED: ??11/06/24-828 ?SP TYPE: Cytology ? OTHR : Susie Park MD ? ORDERED: ??Cyto-enhanced/2 ? ----- ------- Signed (signature on file) Jessica Blackwell 11/06/240 ? ----- ------- ? END OF REPORT ? us Generic External Data Provider LAB CYTOLOGY AMIRAH CLAY Final Result [facility] [address] [place] [address] [phone] * Creatinine, Serum (11/05/2024 11:46 AM EDT) Creatinine, Serum 0.96 0.5 - 1.4 mg/dL [facility] Estimated Glomerular Filt Rate >60 [facility] Comment:Chronic Kidney Disea se: Estimated GFR < 60 mL/min/[id number] Kidney Disease: Estimated GFR < 15 mL/min/1.73m2 11/05/2024 11:4 6 AM EDT 11/05/2024 11:46 AM EDT Generic External Data Provider LAB BLOOD ORDERAB LES Final Result Performing Organization Address [facility] de Phone Number [facility] [address] [place] [phone] * BUN (Blood Urea Nitrogen) (11/05/2024 11:46 AM EDT) Urea Nitrogen (BUN) 15 9 - 16 mg/dL [facility] 11/05/2024 11:4 6 AM EDT 11/05/2024 11:46 AM EDT us Generic External Data Provider LAB BLOOD ORDERAB LES Final Result Performing Organization Address [facility] Co de Phone Number [facility] [address] [place] [phone] * (ABNORMAL) Lipid Panel, Standard (04/14/2024 12:18 PM EDT) Triglycerides 154(H) <150 mg/dL [facility] Comment:Desirable Triglyceri de: less than 150 mg/dLBorderline High Triglyceride 150-199 mg/dLHigh Triglyceride: 200-499 mg/dLVery High Triglyceride: greater than or equal to 5OO mg/dL Cholesterol 230(H) <200 mg/dL [facility] Comment:Desirable Cholestero l: less than 200 mg/dLBorderline High Cholesterol: 200-239 mg/dLHigh Cholesterol: greater than 239 mg/dL LDL Cholesterol Calculated 159(H) <100 mg/dL [facility] Comment:Desirable LDL: less than 100 mg/dLNear Optimal/Above Optimal LDL: 110- 129 mg/dLBorderline High LDL: 130-159 mg/dLHigh LDL: 160-189 mg/dLVery High LDL: greater than or equal to 190 mg/dL HDL Cholesterol 41 >40 mg/dL [facility] Comment:Desirable HDL: great er than 40 mg/dL Note: This HDL assay may give artificially low results in patients with liver disease. 04/14/2024 12:1 8 PM EDT 04/14/2024 1:15 PM EDT [facility] External Data Provider LAB BLOOD ORDERAB LES Final Result Performing Organization Address [facility] de Phone Number [facility] [address] [place] [phone] * Hepatitis C Antibody Reflex (03/12/2023 11:45 AM EDT) Hepatitis C Antibody Nonreactive Nonreactive [facility] Comment:Antibodies to HCV no t detected; does not exclude early acuteHCV infection. 03/12/2023 11:4 5 AM EDT 03/12/2023 1:40 PM EDT [facility] External Provider LAB BLO OD ORDERABLES Final Result Performing Organization Address [facility] Co de Phone Number [facility] [address] [place] [address] [phone] * ALBUMIN, RANDOM URINE W/CREATININE (09/15/2020 [...] Cintron MD LAB URINE ORDERABLES Final Result [facility] [address] [place] [address], from Last 3 Months or Most Recently Relevant to Health Maintenance Insurance [facility] [employer] (HMO D-SNP) [employer] Care Teams Assistant Store Manager Operations Relationship Specialty Start Date End Date Susie Park MD [address] [place] [phone] PCP - General Family Medicine 07/08/18
--- OUTSIDE RECORDS SUMMARY | 2024-12-24 13:52 | XMS_ITS | Encounter Summary ---
Author Organization [employer] Address [address] [facility] 7t [place] [address] Care Team Providers Care Newborn Hearing Screener Name Role Phone Susie Park MD Primary Care Provide r Reason for Visit * Reason Comments Med Refill Encounter Details Date Type Department Care Team (Late st Contact Info) Description 09/20/2023 Refill [facility] [address] [place], [place] [phone] Kacey Edwards MD [address] [place], [place] [phone] Otitis externa of both ears, unspecified chronicity, [...] Description 12/26/2024 10:00 AM EDT Office Visit [facility] [address] [place] [phone] Chad Mello MD [address] [place] [phone] 03/12/2025 11:30 AM EDT Office Visit [facility] [address] [place] [phone] Susie Park MD [address] [place] [address] [phone] documented as of this encounter Visit Diagnoses Diagnosis Otitis externa of both ears, unspecified chronicity, unspecified type documented in this encounter Additional Health Concerns Assessment Noted Time PHQ-9 Depression Total Score: 8 10/24/19 23 11:22 AM EST documented as of this encounter Care Teams Newborn Hearing Screener Relationship Specialty Start Date End Date Susie Park MD [address] [place] [address] [phone] PCP - General Family Medicine 07/08/18 documented as of this encounter
--- OUTSIDE RECORDS SUMMARY | 2024-12-24 13:52 | XMS_ITS | Encounter Summary ---
Author Organization [employer] Address [address] [facility] 7t [place] [address] Care Team Providers Care Office Worker Name Role Phone Susie Park MD Primary Care Provide r Encounter Details Date Type Department Care Team (Late Contact Info) Description 03/07/2023 Orders Only [facility] [address] [place] [address] Jodie Mejia MD [address] [place] [address] Psoriasis (Primary Dx) Social History Tobacco Use [...] 10:00 AM EDT Office Visit [facility] [address] [place] [phone] Chad Mello MD [address] [place], [place] [phone] 03/12/2025 11:30 AM EDT Office Visit [address] [phone] Susie Park MD [address] [place], [place] [phone] Scheduled Orders Name Type Priority Associated Diagnoses [...] documented as of this encounter Care Teams Office Worker Relationship Specialty Start Date End Date Susie Park MD [address] [place] [address] [phone] PCP - General Family Medicine 07/08/18 documented as of this encounter
--- OUTSIDE RECORDS SUMMARY | 2024-12-24 13:52 | XMS_ITS | Encounter Summary ---
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) Social History [...] Description 12/26/2024 10:00 AM EDT Office Visit [facility] [address] [place] [phone] Chad Mello MD [address] [place] [phone] 03/12/2025 11:30 AM EDT Office Visit [facility] [address] [place] [phone] Susie Park MD [address] [place] [phone] documented as of this encounter Visit Diagnoses Diagnosis Coronary artery disease involving [place] coronary artery of [place] heart with angina pectoris ([facility]/HCC) documented in this encounter Additional Health Concerns Assessment Noted Time PHQ-9 Depression Total Score: 8 10/24/19 23 11:22 AM EST documented as of this encounter Care Teams Roll Sheeting Cutter Relationship Specialty Start Date End Date Susie Park MD [address] [place] [address] [phone] PCP - General Family Medicine 07/08/18 documented as of this encounter
--- OUTSIDE RECORDS SUMMARY | 2024-12-24 13:53 | XMS_ITS | Encounter Summary ---
Author Organization [email or web address] Address [address] [facility] 7t [place] [address] Care Team Providers Care Anchor Tacker Name Role Phone Susie Park MD Primary Care Provide r Reason for Visit * Reason Comments Med Refill Encounter Details Date Type Department Care Team (Late st Contact Info) Description 08/19/2024 Refill [facility] [address] [place], [place] [phone] Susie Park MD [address] [place] [address] Social History Tobacco Use Types Packs/Day Years [...] with others, in a hotel, in a long term, living outside on the street, on a [...] Description 12/26/2024 10:00 AM EDT Office Visit [facility] [address] [place] [phone] Chad Mello MD [address] [place] [phone] 03/12/2025 11:30 AM EDT Office Visit [facility] [address] [place] [phone] Susie Park MD [address] [place] [phone] documented as of this encounter Visit Diagnoses Not on filedocumented in this encounter Additional Health Concerns Assessment Noted Time PHQ-9 Depression Total Score: 9 04/14/20 24 10:39 AM EDT documented as of this encounter Care Teams Anchor Tacker Relationship Specialty Start Date End Date Susie Park MD [address] [place] [phone] PCP - General Family Medicine 07/08/18 documented as of this encounter
--- OUTSIDE RECORDS SUMMARY | 2024-12-24 13:53 | XMS_ITS | Data Portability ---
Author Organization [place] - [facility], Allergy Address [address] [facility] [address] [place] [address] Care Team Providers Care Promotional Marketing Agent Name Role Phone VICTORIANO BHATTI Primary Care [...] 0.1 % ear drops,viet pension 2024 025 [facility]- , [address] [place], [place], [id number], 09/19/2024 10:42:25 fluocinol one acetonide oil 0.01 % ear drops 2023 024 [facility]- , [address] [place], [phone], 06/19/2024 10:10:57 triamcino lone acetonide 0.1 % topical cream 2023 024 [facility]- , [address] [place], [place], [phone], 06/19/2024 10:11:01 Patient TargetsNo targets recorded. Patient Instructions Encounter Date Encounter Id Patient Instructions Last Modified By Organization Details Last Modified Time 02/15/2024 [id number] Patient presents for cerumen removal. Successfully removed [...] and Address Organization Details Recorded Time Psoriasis 7061866 Active 2021 Psoriasis , unspecifi ed; Note: Date Diagnosed : 10/07/2021 1:51 PM (L40.9) Not Available [facility] 4 03:12:14 Bilateral diffuse otitis externa 03507960506 67869 Active 2022 Diffuse otitis externa, bilateral ; Note: Date Diagnosed : 12/19/2022 9:52 AM (H60.313) Not Available [facility] 4 03:12:13 Impacted cerumen in left ear 01177569937 49910 Active 2020 Impacted cerumen, left ear; Note: Date Diagnosed : 7:03 AM (H61.22) Not Available [facility] 4 03:12:13 Impacted cerumen in right ear 95424937514 46423 Active 2021 Impacted cerumen, right ear; Note: Date Diagnosed : 01/26/2022 1:41 PM (H61.21) Not Available [facility] 4 03:12:12 Impacted cerumen of bilateral ears 67079504252 53819 Active 2021 Impacted cerumen, bilateral ; Note: Date Diagnosed : 12/16/2021 1:50 PM (H61.23) Not Available [facility] 4 03:12:13 Diffuse otitis externa 41951590 Active 2022 Diffuse otitis externa, right ear; Note: Date Diagnosed : 2:49 PM (H60.311) ; Start Date : Diffuse otitis externa, left ear; Note: Date Diagnosed : 01/09/2023 10:45 AM (H60.312) Not Available [facility] 4 03:12:13 Chronic right myringiti s 98939918221 29138 Active 2020 Chronic myringiti s, right ear; Note: Date Diagnosed : 7:03 AM (H73.11) Not Available [facility] 4 03:12:14 Otorrhea of right ear 78293597180 40880 Active 2020 Otorrhea, right ear; Note: Date Diagnosed : 1 2:49 PM (H92.11) Not Available [facility] 4 03:12:14 Acute infective otitis externa 547958061 Active 2024 SANTA MIRANDA PA-C [address] [facility],[place] [address], [place], [phone] , [facility] - [facility] 5 10:40:43 Problem Notes None recorded. Procedures Surgical History Date Name Laterality Status Provider Name and Address Organization Details Recorded Time 5 Cerumen removal without microscope bilat completed SANTA MIRANDA PA-C [address] [facility],[place] [address], [place], [address], [facility] - [facility] 09/19/2024 10:51:22 4 Cerumen removal without microscope bilat completed SANTA MIRANDA PA-C [address] [facility],[place] [address], [place], [address], [facility] - [facility] 06/19/2024 10:21:03 4 Cerumen removal without microscope bilat completed STACIE BRITOC [address] [facility],[place] [address], [place], [address], [facility] - [facility] 02/15/2024 13:26:19 Imaging Results None recorded. [...] mg tablet 06/19 completed Medicati on ID: [id number] B rand Name: acarbose Send Method: E-Prescr [...] mg tablet 06/19 completed Medicati on ID: [id number] B rand Name: tramadol Send Method: E-Prescr ibed Sub s Allowed: subs OK Medic ationGen ericName : tramadol Not Available Not Available Not Available quetiapin e 100 mg tablet 06/19 completed Medicati on ID: [id number] B rand Name: quetiapi ne Send Method: [...] affected area 06/19 completed Medicati on ID: [id number] D uration Value: 30 Brand Name: Mineral [...] a day 06/19 completed Medicati on ID: [id number] D uration Value: 14 Brand Name: hydrocor [...] small amount 06/19 completed Medicati on ID: [id number] D uration Value: 14 Prescri bed By [...] eye ointment 11/04 completed Medicati on ID: [id number] P rescribe d By Name: HARIS Pulido [...] a day 06/19 completed Medicati on ID: [id number] D uration Value: 14 Brand Name: hydrocor tisone S end Method: E-Prescr ibed Sub s Allowed: subs OK Medic ationGen ericName : hydrocor tisone Not Available Not Available Not Available albuterol sulfate HFA 90 mcg/actua tion aerosol inhaler active Not Available Not Available Not Available hydrocort isone 2.5 % topical ointment Apply a small amount once a day 06/19 completed Medicati on ID: [id number] D uration Value: 14 Brand Name: hydrocor tisone 2.5% Sen d Method: E-Prescr ibed Sub s Allowed: subs OK Speci al Instruct ion: to external ears Med icationG enericNa me: hydrocor tisone 2.5% Med ication ID: [id number] D uration Value: 14 Brand Name: hydrocor [...] topical ointment 11/07 completed Medicati on ID: [id number] P rescribe d By Name: HARIS Pulido nd Name: gentamic in Send Method: E-Prescr ibed Sub s Allowed: subs OK Specnatali al Instruct ion: Bring to next appointm ent for applicat ion Medi cationGe nericNam e: gentamic in Not Available Not Available Not Available mometason e 0.1 % topical cream 06/19 completed Medicati on ID: [id number] D uration Value: 10 Prescri bed By [...] drops,viet pension 06/19 completed Medicati on ID: [id number] D uration Value: 14 Brand Name: TobraDex [...] mg tablet 06/19 completed Medicati on ID: [id number] B rand Name: Brilinta Send Method: E-Prescr [...] nasal spray 2020 active Medicati on ID: [id number] B rand Name: Narcan S end Method: E-Prescr ibed Sub s Allowed: subs OK Medic ationGen ericName : Narcan Not Available Not Available Not Available Daily-Vit e (with folic acid) 400 mcg tablet active Not Available Not Available Not Available Vitals Date Recorded Body height Provider Name an d Address Organization Details Last Updated DateTime 11/28/2024 167.64 cm FERDINAND QUINONEZ [place] - [facility] 11/28/2024 11:37:12 Date Recorded Body height Body mass index (BMI) Body weight Provider Name and Address Organization Details Last Updated DateTime 02/15/2024 167.64 cm 27.9 kg/m2 38451.48 g Kacey Reyes [place] - [facility] 02/15/2024 13:06:56 Date Recorded Body height Body mass index (BMI) Body weight Provider Name and Address Organization Details Last Updated DateTime 06/19/2024 167.64 cm 27.9 kg/m2 22118.48 g Alondra Márquez [place] - [facility] 06/19/2024 09:32:10 Date Recorded Body height Body mass index (BMI) Body weight Provider Name and Address Organization Details Last Updated DateTime 09/19/2024 167.64 cm 27.9 kg/m2 60776.48 g Mely Thornton [place] - [facility] 09/19/2024 10:34:07 Social History None recorded. Functional Status None recorded. Mental Status None recorded. Family History Nothing Reported. Medical History No medical history recorded. Past Encounters Encounter ID Performer Location Encounter Start Date Encounter Closed Date Diagnosis/Indication Diagnosis SNOMED-CT Code Diagnosis ICD10 Code Diagnosis Note [id number] SANTA MIRANDA PA-C [facility] [address] [address] 02/15/2024 12:43:54 02/15/2024 13:30:17 Impacted cerumen of bilateral ears [id number] 889456 H61.23 [id number] SANTA MIRANDA PA-C [facility] [address] [address] 06/19/2024 09:13:54 06/19/2024 10:12:40 Psoriasis 8017307 L40.9 Impacted c erumen of bilateral ears 0346145634 747635 H61.23 [id number] SANTA MIRANDA PA-C [facility] [address] [address] 09/19/2024 10:27:59 09/19/2024 10:47:34 Acute infective otitis externa 593406696 H60.391 Impacted c erumen of bilateral ears 2047653241 514023 H61.23 [id number] SANTOS ZIEGLER PA-C [facility] [address] [address] 11/28/2024 11:03:05 11/28/2024 11:51:45 Acute infective otitis externa 054864458 H60.391 Health Concerns Section Related Observation LastModified by Organization Detai ls LastModified Time None Recorded Concern Status LastModified by Organization Details LastModified Time None Recorded Advance Directives Directive None Recorded Payers Encounter Date Sequence Insurance Name Policy Number Policy Ruiz Covered Member ID Ruiz Member ID Guarantor Name 02/15/2024 1 [facility] - DOS ON OR AFTER 2022 - [place]V ANTAGE - PPO) Elio Calles [id number] Elio Calles 06/19/2024 1 [facility] - DOS ON OR AFTER 2022 - [place]V ANTAGE - PPO) Elio Stevan [id number] Elio Calles 09/19/2024 1 [facility] - DOS ON OR AFTER 2022 - [place]V ANT[place] - PPO) Elio Stevan [id number] Elio Calles 11/28/2024 1 [facility] - DOS ON OR AFTER 2022 - [place]V ANTAGE - PPO) Elio Stevan [id number] Elio Stevan Notes Date Note Type Note Provider Name and Address Organization Details Recorded Time 02/15/2024 text/html 68-year-old male presents for evaluation of the ears. Denies change in hearing, otalgia, otorrhea. Using Vaseline and keeping ears dry in the shower, denies Q-tip use. STEPHANIA CUNNINGHAM MD [address] [place] [address], [phone], [facility] 02/15/2024 16:47:54 06/19/2024 text/html 69-year-old male presents for evaluation of the ears. He reports dry flaky skin in the left greater than right ear that he digs out with a fingernail. He has a history of psoriasis that has been flaring up lately he does not see dermatology. He denies otalgia, otorrhea, and change in hearing. DAILY FUNES MD [address] [place] [address], [phone], [facility] 06/19/2024 17:32:09 09/19/2024 text/html 69-year-old male [...] hearing, otalgia, and otorrhea. STEPHANIA CUNNINGHAM MD [address] [place] [address], [phone], [facility] 09/19/2024 12:41:03 11/28/2024 text/html 69-year-old male presents following right sided acute otitis externa. He trialed topical Ciprodex, and reports symptoms resolved. Hearing returned to baseline, but he is interested in returning for formal hearing evaluation. TEODORO AMADOR MD [address] [place] [address], [place], [phone], [facility] 11/29/2024 09:22:49
--- OUTSIDE RECORDS SUMMARY | 2024-12-24 13:53 | XMS_ITS | Encounter Summary ---
Author Organization [employer] [facility] Address [address] [facility] 7t [place] [address] Care Team Providers Care Winder Fixer Name Role Phone Susie Park MD Primary Care Provide r Encounter Details Date Type Department Care Team ([facility] Contact Info) Description 08/30/2022 Abstract [facility] MED[facility]INE [address] [place] [address] [phone] Susie Park MD [address] [place], [place] [phone] Social History Tobacco Use Types Packs/Day Years [...] Upcoming Encounters Date Type Department Care Team ([facility] Contact Info) Description 12/26/2024 10:00 AM EDT Office Visit [facility] [address] [place] [address] [phone] Chad Mello MD [address] [place], [place] [phone] 03/12/2025 11:30 AM EDT Office Visit [facility] [address] [place], [place] [phone] Susie Park MD [address] [place], [place] [phone] documented as of this encounter Visit Diagnoses Not on filedocumented in this encounter Additional Health Concerns Assessment Noted Time PHQ-9 Depression Total Score: 17 022 9:43 AM EST documented as of this encounter Care Teams Winder Fixer Relationship Specialty Start Date End Date Susie Park MD [address] [place] [address] [phone] PCP - General Family Medicine 07/08/18 documented as of this encounter
--- OUTSIDE RECORDS SUMMARY | 2024-12-24 13:53 | XMS_ITS | Encounter Summary ---
Author Organization [employer] Address [address] [facility] 7t [place] [address] Care Team Providers Care Cnc Lathe Machinist Name Role Phone Susie Park MD Primary Care Provide r Encounter Details Date Type Department Care Team (Late st Contact Info) Description 12/22/2024 Orders Only [facility] External Provider, [facility] Social History Tobacco Use Types Packs/Day Years [...] Description 12/26/2024 10:00 AM EDT Office Visit [facility] [address] [place] [phone] Chad Mello MD [address] [place] [phone] 03/12/2025 11:30 AM EDT Office Visit [address] [address] Susie Park MD [address] [place] [address] documented as of this encounter Procedures Procedure Name Priority Date/Time Associated Diagnosis Comments LDCT LUNG SCREENING Routine 12/22/2024 5 :11 PM EDT documented in this encounter Results * CT Lung Screening Low dose (12/22/2024 5:11 PM EDT) Anatomical Region Laterality Modality Lung Computed Tomogra phy 12/22/2024 5:11 PM EDT Narrative 12/22/2024 5:13 PM EDT ? [facility] ?[address] ?[place] [address] ? CT Scan Report ? Signed ? Patient: Stevan,Elio ?MR#: [id number] ?? 20 ? : 1955 ?Acct:[id number] ? Age/Sex: 69 / M ?ADM Date: 12/22/24 ? Loc: HO.CT ? Attending Dr: William Rock MD ? Ordering Physician: William Rock MD ?? Date of Service: 12/22/24 ?? Procedure(s): CT lung screening ?? Accession Number(s): [id number] ? cc: Susie Park MD; William Rock MD ? Report Number: ?? [id number]: Total DLP = ?? 58.00 mGy-cm ? [...] was provided on smoking cessation. ? Comparison: CT/WA/SR - CT LUNG SCREENING - 12/18/23 10:11 EDT ?? CT/REG/WA/SR - CT CHEST WO IV CON - [...] by Lucy Max MD in OV> ? 12/22/24 1712 ? DD/ 1711 ? TD/TT: 12/22/24 1711 ? Town Justice: ? Procedure Note Delio Deluna - 12/22/[address] [place] [address] [address] Scan Report Signed Patient: Elio CallesMR#: [id number] 20 : 5Acct:[id number] Age/Sex: 69 / MADM Date: 12/22/24 Loc: HO.CT Attending Dr: William Rock MD Ordering Physician: William Rock MD Date of Service: 12/22/24 Procedure(s): CT lung screening Accession Number(s): [id number] cc: Susie Park MD; William Rock MD Report Number: [id number]: Total DLP = 58.00 mGy-cm CLINICAL HISTORY: [...] counseling was provided on smoking cessation. Comparison: CT/WA/SR - CT LUNG SCREENING - 12/18/23 10:[address]/REG/WA/SR - CT CHEST WO IV CON - [...] signed by Lucy Max MD in OV> 12/22/24 1712 DD/ 1711 TD/TT: 12/22/24 1711 Town Justice: [facility] External Provider IMG CT PROCEDURES Final Result documented in this encounter Visit Diagnoses Not on filedocumented in this encounter Additional Health Concerns Assessment Noted Time PHQ-9 Depression Total Score: 9 04/14/20 24 10:39 AM EDT documented as of this encounter Care Teams Cnc Lathe Machinist Relationship Specialty Start Date End Date Susie Park MD [address] [place] [address] PCP - General Family Medicine 07/08/18 documented as of this encounter
--- OUTSIDE RECORDS SUMMARY | 2024-12-24 13:53 | XMS_ITS | Encounter Summary ---
Author Organization [employer] Address [address] [facility] 7t [place] [address] Care Team Providers Care Avionics Mechanic Name Role Phone Susie Park MD Primary Care Provide r Reason for Visit * Reason Comments Med Refill Encounter Details Date Type Department Care Team (Late st Contact Info) Description 09/17/2024 Refill [facility]C MED & PEDS [address] [place], [place] [phone] Susie Park MD [address] [place] [address] Social History Tobacco Use Types Packs/Day Years [...] with others, in a hotel, in a custodial, living outside on the street, on a [...] Description 12/26/2024 10:00 AM EDT Office Visit [facility] MEDICINE [address] [place] [phone] Chad Mello MD [address] [place] [address] 03/12/2025 11:30 AM EDT Office Visit [facility] MEDICINE [address] [place] [phone] Susie Prak MD [address] [place] [address] documented as of this encounter Visit Diagnoses Not on filedocumented in this encounter Additional Health Concerns Assessment Noted Time PHQ-9 Depression Total Score: 9 04/14/20 24 10:39 AM EDT documented as of this encounter Care Teams Avionics Mechanic Relationship Specialty Start Date End Date Susie Park MD [address] [place] [phone] PCP - General Family Medicine 07/08/18 documented as of this encounter
--- OUTSIDE RECORDS SUMMARY | 2024-12-24 13:53 | XMS_ITS | Encounter Summary ---
Author Organization [employer] Address [address] [facility] 7t [place] [address] Care Team Providers Care Construction Sales Representative Name Role Phone Susie Park MD Primary Care Provide r Reason for Visit * Reason Comments Med Refill Encounter Details Date Type Department Care Team (Late st Contact Info) Description 10/15/2024 Refill [facility] CHC MED & PEDS [address] [place], [place] [phone] Susie Park MD [address] [place] [address] Social History Tobacco Use Types Packs/Day Years [...] 10:00 AM EDT Office Visit [facility] MEDICINE [address] [place] [phone] Chad Mello MD [address] [place] [phone] 03/12/2025 11:30 AM EDT Office Visit [facility] MEDICINE [address] [place] [address] Susie Park MD [address] [place] [address] documented as of this encounter Visit Diagnoses Not on filedocumented in this encounter Additional Health Concerns Assessment Noted Time PHQ-9 Depression Total Score: 9 04/14/20 24 10:39 AM EDT documented as of this encounter Care Teams Construction Sales Representative Relationship Specialty Start Date End Date Susie Park MD [address] [place] [phone] PCP - General Family Medicine 07/08/18 documented as of this encounter
== END 2024-12-24 13:34 | disposition home or self-care (01) ==
LOC: HO.HPS 12:39
PROVIDERS: PCP Internal Medicine; Visit Provider Internal Medicine Pulmonary Disease
DX: J44.9 Chronic obstructive pulmonary disease, unspecified (principal); Z87.891 Personal history of nicotine dependence; G47.33 Obstructive sleep apnea (adult) (pediatric); Z99.89 Dependence on other enabling machines and devices
CPT/HCPCS: 99214; G2211

== ENCOUNTER → 2024-12-24 12:39 | Outpatient (BNVA) | payer OTHER, SELFPAY | PROVIDERS: PCP Internal Medicine; Visit Provider Internal Medicine Pulmonary Disease | DX: J44.9 Chronic obstructive pulmonary disease, unspecified (principal); G47.33 Obstructive sleep apnea (adult) (pediatric); R91.8 Other nonspecific abnormal finding of lung field; Z99.89 Dependence on other enabling machines and devices; Z87.891 Personal history of nicotine dependence | CPT/HCPCS: 99212 ==

== ENCOUNTER 2024-12-26 10:35 | Outpatient (REF) | payer OTHER, SELFPAY ==
[2024-12-26 11:48] LABS: Cholesterol 205 mg/dL (<200); HDL Cholesterol 43 mg/dL (>40); LDL Cholesterol Calculated 138 mg/dL (<100); Triglycerides 124 mg/dL (<150)
[2024-12-29 13:29] LABS: TS Negative Control Passed; TS Panel A 40; TS Panel B 8; TS Positive Control Passed; TSpotTB Positive (Negative)
== END 2024-12-26 10:36 | disposition home or self-care (01) ==
LOC: HO.HHCL 10:35
PROVIDERS: Internal Medicine Cardiovascular Disease; Visit Provider Internal Medicine
DX: I25.10 Atherosclerotic heart disease of native coronary artery without angina pectoris (principal); Z22.7 Latent tuberculosis
CPT/HCPCS: 36415; 80061; 86481

== ENCOUNTER 2025-01-07 14:24 | Outpatient (AMB) | payer OTHER, SELFPAY ==
--- OUTSIDE RECORDS SUMMARY | 2025-01-07 14:28 | XMS_ITS | Encounter Summary ---
Author Organization [employer] Address [address] [facility] 7t [place] [address] Care Team Providers Care Transmission Operator Name Role Phone Susie Park MD Primary Care Provide r Encounter Details Date Type Department Care Team ([facility] Contact Info) Description 08/30/2022 Abstract [facility] MEDICINE [address] [place] [address] [phone] Susie Park MD [address] [place] [address] [phone] Social History Tobacco Use Types Packs/Day Years [...] Upcoming Encounters Date Type Department Care Team ([facility] Contact Info) Description 03/12/2025 11:30 AM EDT Office Visit [facility] MEDICINE [address] [place] [address] [phone] Susie Park MD [address] [place], [place] [phone] documented as of this encounter Visit Diagnoses Not on filedocumented in this encounter Additional Health Concerns Assessment Noted Time PHQ-9 Depression Total Score: 17 022 9:43 AM EST documented as of this encounter Care Teams Transmission Operator Relationship Specialty Start Date End Date Susie Park MD [address] [place] [address] PCP - General Family Medicine 07/08/18 documented as of this encounter
--- OUTSIDE RECORDS SUMMARY | 2025-01-07 14:28 | XMS_ITS | Encounter Summary ---
Author Organization [employer] Address [address] [facility] [address] 7t [place] [address] Care Team Providers Care Executive Chairman Name Role Phone Susie Park MD Primary Care Provide r Reason for Visit * Reason Comments Med Refill Encounter Details Date Type Department Care Team (Late st Contact Info) Description 10/15/2024 Refill [facility] CHC MED & PEDS [address] [place], [place] [phone] Susie Park MD [address] [place] [address] Social History Tobacco Use Types Packs/Day Years [...] Care Team (Late st Contact Info) Description 03/12/2025 11:30 AM EDT Office Visit [facility] MEDICINE [address] [place] [address] Susie Park MD [address] [place] [address] documented as of this encounter Visit Diagnoses Not on filedocumented in this encounter Additional Health Concerns Assessment Noted Time PHQ-9 Depression Total Score: 9 04/14/20 24 10:39 AM EDT documented as of this encounter Care Teams Executive Chairman Relationship Specialty Start Date End Date Susie Park MD [address] [place], [place] [phone] PCP - General Family Medicine 07/08/18 documented as of this encounter
--- OUTSIDE RECORDS SUMMARY | 2025-01-07 14:28 | XMS_ITS | Clinical Summary ---
Author Organization [employer] Address [address] [facility] 7t [place] [address] Care Team Providers Care Working Manager Name Role Phone Susie Park MD [...] main meal 180 tablet 1 023 Active ustekinumab (Stelara) injectionIndicat ions:Psoriasis Loading [...] twice daily as directed 100 each Active Wixela Inhub 250-50 MCG/ACT aerosol powder INHALE 1 PUFF BY MOUTH TWICE A DAY ( MORNING AND EVENING) 60 each 1 023 Active nitroglycerin (Nitrostat) 0.4 MG SL tabletIndication s:Coronary artery disease involving [place] coronary artery of [place] heart with angina pectoris (CMS/HCC) Place 1 tablet (0.4 mg) under the tongue every 5 (five) minutes if needed for chest pain. place 1 tablet by sublingual route at the first sign of an attack; no more than 3 tabs are recommended within a 15 minute period. 90 tablet 024 Active albuterol (2.5 MG/3ML) 0.083% nebulizer solution INHALE [address]ULIZ[address] R[address] 3 TIMES EVERY DAY 90 mL 1 024 Active atorvastatin (Lipitor) 40 MG tabletIndication s:Type 2 diabetes mellitus with other specified complication, with long-term current use of insulin (CMS/[facility]) Take 1 tablet (40 mg) by [...] MG EC tabletIndication s:Coronary artery disease involving [place] coronary artery of [place] heart with angina pectoris ([facility]/HCC) TAKE 1 TABLET BY MOUTH EVERY NIGHT [...] complication, with long-term current use of insulin ([facility]) TEST BLOOD SUGAR TWICE A DAY 100 each 11 025 Active insulin pen needle (UltiCare Micro Pen Esparto) 32G x 4 mm misc USE DAILY WITH INSULIN 100 each 11 025 Active loratadine (Claritin) 10 MG tabletIndication s:Intrinsic [...] same time. 30 patch 025 2024 Active betamethasone, augmented, (Diprolene) 0.05 % ointmentIndicati ons:Psoriasis vulgaris Apply topically 2 times daily. 45 g 025 Active calcipotriene (Dovonex) 0.005 % creamIndications :Psoriasis vulgaris Apply topically 2 times daily. 60 g 025 Active triamcinolone (Kenalog) 0.1 % cream Apply topically at bedtime. 80 g 5 023 2024 Discontinued calcipotriene (Dovonex) 0.005 % cream Apply topically 2 times daily. 60 g 1 024 2024 Discontinued nicotine (Nicoderm CQ) 14 MG/24HR patchIndications :Smoker Place 1 patch on the skin 1 (one) time each day at the same time. 30 patch 024 2024 Discontinued(R eorder (will not trigger notification to Pharmacy)) halobetasol (UltraVATE) 0.05 % ointment Apply topically 2 times daily. 50 g 1 024 2024 Discontinued loratadine (Claritin) 10 MG tabletIndication s:Intrinsic eczema [...] eorder (will not trigger notification to Pharmacy)) calcipotriene (Dovonex) 0.005 % creamIndications :Psoriasis vulgaris Apply topically 2 times daily. 60 g 025 2024 Discontinued(R eorder (will not trigger [...] (08/31/2022 9:40 PM EST): Patient to call [facility] to schedule abd US, a VM had [...] knee 08/22/2022 Coronary artery disease invo lving k[place] coronary artery of [place] heart with angina pectoris 08/22/2022 Assessment & [...] Encounters Date Type Department Care Team Description 01/02/2025 Refill [facility] MED & PEDS [address] [place], [place] [phone] Susie Park MD Psoriasis vulgaris 12/30/2024 Telephone [facility] MEDICINE [address] [place] [address] Susie Park MD [facility] incoming call 12/26/2024 10:00 AM EDT Office Visit [facility] MEDICINE [address] [place] [phone] Chad Mello MD Psoriasis vulgaris (Primary Dx); LTBI (latent tuberculosis infection) 12/26/2024 Telephone [facility] [address] [place] [address] Susie Park MD Medication Question 12/26/2024 Orders Only GENERIC EXTERNAL DATA DEPARTMENT Provider, Generic External Data 12/26/2024 Travel 12/22/2024 Orders Only [facility] External Provider, [facility] 12/11/2024 10:00 AM EDT Office Visit [address] [address] Susie Park MD Type 2 diabetes mellitus with other specified complication, with long-term current use of insulin (CMS/HCC) (Primary Dx); HTN (hypertension), benign; Severe persistent asthma without complication; Mood disorder (CMS/HCC); Coronary artery disease involving k[place] coronary artery of [place] heart with angina pectoris (CMS/HCC); Smoker 12/11/2024 Travel 12/10/[address] [facility] MED & PEDS [address] [place] [address] Susie Park MD Intrinsic eczema; Primary osteoarthritis of both knees 12/04/2024 Telephone [facility] MED[facility]INE [address] [place] [address] Susie Park MD Chart Prep 12/03/2024 Telephone [facility] [address] [place] [address] Susie Park MD 12/03/2024 Telephone [facility] [address] [place] [phone] Susie Park MD Appointment Request 11/25/2024 Refill [facility] [address] [place] [address] Susie Park MD 11/11/2024 Refill [facility] [address] [place] [address] Susie Park MD Type 2 diabetes mellitus with other specified complication, with long-term current use of insulin ([facility]); Primary osteoarthritis of both knees 11/05/2024 Orders Only GENERIC EXTERNAL DATA DEPARTMENT Provider, Generic External Data 10/15/2024 Refill [facility] [address] [place] [address] Susie Park MD 10/15/2024 Refill [facility] [address] [place] [address] Susie Park MD from Last 3 Months Immunizations Immunization Administration Dates Next Due Hep A, Adult [...] with others, in a hotel, in a correction, living outside on the street, on a [...] Sign Reading Time Taken Comments Blood Pressure 155/75 12/26/2024 9:34 AM EDT Pulse 78 12/26/2024 9:34 AM EDT Temperature 36.2 ??C (97.1 ??F) 12/26/2024 9:34 AM ED T Respiratory Rate 17 12/26/2024 9:34 AM EDT Oxygen Saturation 98% 07/15/2024 10:36 AM EST Inhaled Oxygen Concentration - - Weight 79.6 kg (175 lb 6.4 oz) 12/26/2024 9:34 A M EDT Height 167.6 cm (5' 6 ) 12/11/2024 10:05 AM EDT Body Mass Index 28.31 12/11/2024 10:05 AM EDT Plan of Treatment Upcoming Encounters Date Type Department Care Team ([facility] st Contact Info) Description 03/12/2025 11:30 AM EDT Office Visit [facility] MEDICINE [address] [place] [address] Susie Park MD [address] [place] [address] Health Maintenance Due Date Last Done Comments [...] 2010 Depression Screening 04/14/2025 04/14/2024, 04/14/20 24 Diabetes: Hemoglobin A1C 06/12/2025 025, 07/15/2024, 04/14/2024, Additional history exists Alcohol/Substance Use Screening 07/15/2025 07/15/2024 SDOH Screening 07/15/2025 07/15/2024 Tobacco Screening 12/11/2025 12/11/2024 Lipid Panel 12/26/2025 12/26/2024, 03/27, 04/14/2024, Additional history exists Colonoscopy 04/12/2027 04/12/2022 Colorectal Cancer Screening 04/12/2027 DTaP/Tdap/Td Vaccines (2 [...] Procedure Name Priority Date/Time Associated Diagnosis Comments T-SPOT(R).TB Routine 12/26/2024 10:38 AM EDT LIPID PANEL, STANDARD Routine 12/26/2024 10:38 AM EDT LDCT LUNG SCREENING Routine 12/22/2024 5 :11 PM EDT POCT GLYCATED HEMOGLOBIN, TOTAL Routine 12/11/2024 10:07 AM EDT Type 2 diabetes mellitus with other specified complication, with long-term current use of insulin ([facility]) POCT GLUCOSE Routine 12/11/2024 10:06 AM EDT Type 2 diabetes mellitus with other specified complication, with long-term current use of insulin ([facility]) CYTOPATH-CELL ENHANCED Routine 11/05/2024 4:21 PM EDT CREATININE, SERUM Routine 11/05/2024 11: 46 AM EDT UREA NITROGEN (BUN) Routine 11/05/2024 1 1:46 AM EDT HEPATITIS C ANTIBODY REFLEX Routine 03/12/2023 11:45 AM EDT HM COLONOSCOPY Routine 04/12/2022 9:53 PM EDT ALBUMIN, RANDOM URINE W/CREATININE Routine 09/15/2020 8:43 AM EST from Last 3 Months or Most Recently Relevant to Health Maintenance Results * (ABNORMAL) T-SPOT??.TB (12/26/2024 10:38 AM EDT) T Spot TB Positive( A) Negative [facility] Comment: Diagnosing or excluding tuberculosis (TB) disease andassessing the probability of latent TB infection (LTBI)requires a combination of epidemiological, historical,medical and diagnostic findings that should be takeninto consideration when interpreting T-SPOT.TB testresults. A positive test result does not rule in activeTB disease caused by Mycobacterium tuberculosis(M. tuberculosis); active TB disease should beconfirmed by other tests such as sputum smear andculture, PCR, and chest radiography.Uncommonly, a positive T-SPOT.TB result may be due toinfection with other Mycobacterium species includingM. kansasii, M. szulgai, M. gordonae, or M. marinum.Alternative tests would be required if these infectionsare suspected.The T-SPOT.TB test is qualitative and results arereported as positive, borderline, or negative, giventhat the test controls perform as expected. In linewith the Centers for Disease Control and Prevention's2010 recommendation to report quantitative measurementsalongside the qualitative result, the laboratoryprovides spot counts for informational purposes only.The T-SPOT.TB test should not be interpreted as aquantitative test. TS PANEL A 40 [facility] TS PANEL B 8 [facility] Negative Control Passed [facility] Positive Control Passed [facility] Comment:For additional infor matcheri, please refer tohttp://education.[employer]/faq/CXT059(This link is being provided for informational/educational purposes only.)REPORT COMMENT:REC'D AT [facility] TEST WAS PERFORMED AT:[employer]/LIANAI [id number] [place] [id number] FUNES MD,PHD 12/26/2024 10:3 8 AM EDT 12/26/2024 11:08 AM EDT us Chad Mello MD LAB BLOOD ORDERABLES Final Re sult Performing Organization Address [facility] Co de Phone Number [facility] [address] [place] [phone] * (ABNORMAL) Lipid Panel, Standard (12/26/2024 10:38 AM EDT) Triglycerides 124 <150 mg/dL [facility] Comment:Desirable Triglyceri de: less than 150 mg/dLBorderline High Triglyceride 150-199 mg/dLHigh Triglyceride: 200-499 mg/dLVery High Triglyceride: greater than or equal to 5OO mg/dL Cholesterol 205(H) <200 mg/dL [facility] Comment:Desirable Cholestero l: less than 200 mg/dLBorderline High Cholesterol: 200-239 mg/dLHigh Cholesterol: greater than 239 mg/dL LDL Cholesterol Calculated 138(H) <100 mg/dL [facility] Comment:Desirable LDL: less than 100 mg/dLNear Optimal/Above Optimal LDL: 110- 129 mg/dLBorderline High LDL: 130-159 mg/dLHigh LDL: 160-189 mg/dLVery High LDL: greater than or equal to 190 mg/dL HDL Cholesterol 43 >40 mg/dL [facility] Comment:Desirable HDL: great er than 40 mg/dL Note: This HDL assay may give artificially low results in patients with liver disease. 12/26/2024 10:3 8 AM EDT 12/26/2024 11:08 AM EDT us Generic External Data Provider LAB BLOOD ORDERAB LES Final Result Performing Organization Address [facility]/ZIP Co de Phone Number [facility] [address] [place] [phone] * CT Lung Screening Low dose (12/22/2024 5:11 PM EDT) Anatomical Region Laterality Modality Lung Computed Tomogra phy 12/22/2024 5:11 PM EDT Narrative 12/22/2024 5:13 PM EDT ? [facility] ?[address] ?[place] [address] ? CT Scan Report ? Signed ? Patient: Elio Calles ?MR#: [id number] ?? 20 ? : 1955 ?Acct:[id number] ? Age/Sex: 69 / M ?ADM Date: 12/22/24 ? Loc: HO.CT ? Attending Dr: William Rock MD ? Ordering Physician: William Rock MD ?? Date of Service: 12/22/24 ?? Procedure(s): CT lung screening ?? Accession Number(s): [id number] ? cc: Susie Park MD; William Rock MD ? Report Number: ?? [id number]: Total DLP = ?? 58.00 mGy-cm ? [...] was provided on smoking cessation. ? Comparison: CT/NH/SR - CT LUNG SCREENING - 12/18/23 10:11 EDT ?? CT/REG/NH/SR - CT CHEST WO IV CON - [...] 1712 ? DD/ 1711 ? TD/TT: 12/22/24 171 ? Boom Master: ? Procedure Note Delio Deluna - 12/22/[address] [place] [address] [address] Scan Report Signed Patient: Jerome Calles#: [id number] 20 : 5Acct:[id number] Age/Sex: 69 / MADM Date: 12/22/24 Loc: HO.CT Attending Dr: William Rock MD Ordering Physician: William Rock MD Date of Service: 12/22/24 Procedure(s): CT lung screening Accession Number(s): [id number] cc: Susie Park MD; William Rock MD Report Number: [id number]: Total DLP = 58.00 mGy-cm CLINICAL HISTORY: [...] counseling was provided on smoking cessation. Comparison: CT/NH/SR - CT LUNG SCREENING - 12/18/23 10:[address]/REG/NH/SR - CT CHEST WO IV CON - [...] in OV> 12/22/241711 DD/ 10 TD/TT: 12/22/241710 Boom Master: [facility] External Provider IMG CT PROCEDURES Final Result * (ABNORMAL) POCT HGB A1C (12/11/2024 10:07 AM EDT) [facility] Hemoglobin A1C 6.8(A) 4.0 - 6.0 % QC Media Lot # [id number] Lot# Expiration Date 05,026 Blood 12/11/2024 10:0 7 AM EDT Susie Cintron MD POINT OF CARE TEST EN TER/EDIT ORDERABLES Final Result * (ABNORMAL) POCT Glucose (12/11/2024 10:06 AM EDT) [facility] Glucose Blood, POC 224(A) 60 - 200 mg/dL QC Media Lot # [id number] Lot# Expiration Date Blood Capillary blood specimen / Unknown 12/11/2024 10:06 AM EDT Susie Cintron MD POINT OF CARE TEST EN TER/EDIT ORDERABLES Final Result * Cytopath-cell enhanced (11/05/2024 4:21 PM EDT) 11/05/2024 4:21 PM EDT 11/06/2024 7:30 AM EDT Narrative [facility] - 11/06/2024 5:20 PM EDT ----- ------- Name: Elio Calles ? Age/Sex: 69/M ? : 1955 Unit#: [id number] ?? Attend Dr: Ana Langley SUPERVISOR CELL ROOM-BC ?Re11/05/24 ?Status: DEP REF ? [facility] ?Disch: ? ----- ------- SPEC : [id number] ? RECD: 11/06/24 ? STATUS: ??SOUT ? REQ NUM: [id number] ? JANI: 11/05/24-1621 ? SUBM DR: Ana Langley SUPERVISOR CELL ROOM-BC ? ENTERED: ??11/06/24 ?SP TYPE: Cytology ? [...] Copies To: ?? Susie Park MD ?? [facility] ?? [address] ?? [place] [address] ?? [phone] ?? Ana Langley-IMTIAZ ?? [facility] ?? [address] [place] [address] [facility] [address] ?? [place] [address] ?? [phone] ?? [email or web address] ? CONTINUED ON NEXT PAGE ----- ------- Name: Elio Calles ? Age/Sex: 69/M ? : 1955 Unit#: [id number] ?? Attend Dr: Ana Langley-IMTIAZ ?Re11/05/24 ?Status: DEP REF ? Location: HO.LAB ?Disch: ? ----- ------- SPEC : [id number] ? RECD: 11/06/24 ? STATUS: ??SOUT ? REQ NUM: [id number] ? JANI: 11/05/24-1620 ? SUBM DR: Ana Langley SUPERVISOR CELL ROOM-BC ? ENTERED: ??11/06/24 ?SP TYPE: Cytology ? OTHR : Susie Park MD ? ORDERED: ??Cyto-enhanced/2 ? ----- ------- Signed (signature on file) Jessica Blackwell 11/06/24 1720 ? ----- ------- ? END OF REPORT ? Generic External Data Provider LAB CYTOLOGY ORDE RABLES Final Result Performing Organization Address [facility] Co de Phone Number [facility] [address] [place] [address] [phone] * Creatinine, Serum (11/05/2024 11:46 AM EDT) Creatinine, Serum 0.96 0.5 - 1.4 mg/dL [facility] Estimated Glomerular Filt Rate >60 [facility] Comment:Chronic Kidney Disea se: Estimated GFR < 60 mL/min/1.90x2Yxrike Kidney Disease: Estimated GFR < 15 mL/min/1.73m2 11/05/2024 11:4 6 AM EDT 11/05/2024 11:46 AM EDT Generic External Data Provider LAB BLOOD ORDERAB LES Final Result Performing Organization Address [facility] Co de Phone Number [facility] [address] [place] [address] [phone] * BUN (Blood Urea Nitrogen) (11/05/2024 11:46 AM EDT) Urea Nitrogen (BUN) 15 9 - 16 mg/dL [facility] 11/05/2024 11:4 6 AM EDT 11/05/2024 11:46 AM EDT Generic External Data Provider LAB BLOOD ORDERAB LES Final Result Performing Organization Address [facility] Co de Phone Number [facility] [address] [place] [address] [phone] * Hepatitis C Antibody Reflex (03/12/2023 11:45 AM EDT) Hepatitis C Antibody Nonreactive Nonreactive [facility] Comment:Antibodies to HCV no t detected; does not exclude early acuteHCV infection. 03/12/2023 11:4 5 AM EDT 03/12/2023 1:40 PM EDT [facility] External Provider LAB BLO OD ORDERABLES Final Result Performing Organization Address [facility] Co de Phone Number [facility] [address] [place] [address] [phone] * Hm Colonoscopy (04/12/2022 9:53 PM EDT) Historical Provider MD HEALTH MAINTENANCE Final Result * ALBUMIN, RANDOM URINE W/CREATININE (09/15/2020 8:43 [...] Cintron MD LAB URINE ORDERABLES Final Result [facility] [address] from Last 3 Months or Most Recently Relevant to Health Maintenance Insurance [facility] OPTIONS (HMO D-SNP) Care Teams Working Manager Relationship Specialty Start Date End Date Susie Park MD [address] [place] [phone] PCP - General Family Medicine 07/08/18
--- OUTSIDE RECORDS SUMMARY | 2025-01-07 14:28 | XMS_ITS | Encounter Summary ---
Author Organization [employer] Address [address] [facility] [address]t [place] [address] Care Team Providers Care Hat Cutter Name Role Phone Susie Park MD Primary Care Provide r Reason for Visit * Reason Comments Med Refill Encounter Details Date Type Department Care Team ([facility] st Contact Info) Description 09/20/2023 Refill [facility] [address] [place], [place] [phone] Kacey Edwards MD [address] [place], [place] [phone] Otitis externa of both ears, unspecified chronicity, [...] Description 03/12/2025 11:30 AM EDT Office Visit [facility] [address] [place] [phone] Susie Park MD [address] [place] [phone] documented as of this encounter Visit Diagnoses Diagnosis Otitis externa of both ears, unspecified chronicity, unspecified type documented in this encounter Additional Health Concerns Assessment Noted Time PHQ-9 Depression Total Score: 8 10/24/19 23 11:22 AM EST documented as of this encounter Care Teams Hat Cutter Relationship Specialty Start Date End Date Susie Park MD [address] [place] [phone] PCP - General Family Medicine 07/08/18 documented as of this encounter
--- OUTSIDE RECORDS SUMMARY | 2025-01-07 14:28 | XMS_ITS | Encounter Summary ---
Author Organization [employer] Address [address] [facility] [address] [place] [address] Care Team Providers Care Systems Software Designer Name Role Phone Susie Park MD Primary Care Provide r Reason for Visit * Reason Comments Med Refill Encounter Details Date Type Department Care Team ([facility] st Contact Info) Description 09/26/2023 Refill [facility] [address] [place], [place] [phone] Susie Park MD [address] [place], [place] [phone] Coronary artery disease involving syc[place] coronary artery of sycuan heart with angina pectoris (CMS/HCC) Social History [...] Description 03/12/2025 11:30 AM EDT Office Visit [facility] [address] [place], [place] [phone] Susie Park MD [address] [place], [place] [phone] documented as of this encounter Visit Diagnoses Diagnosis Coronary artery disease involving sycuan coronary artery of sycuan heart with angina pectoris (CMS/HCC) documented in this encounter Additional Health Concerns Assessment Noted Time PHQ-9 Depression Total Score: 8 10/24/19 23 11:22 AM EST documented as of this encounter Care Teams Systems Software Designer Relationship Specialty Start Date End Date Susie Park MD [address] [place], [place] [phone] PCP - General Family Medicine 07/08/18 documented as of this encounter
--- OUTSIDE RECORDS SUMMARY | 2025-01-07 14:28 | XMS_ITS | Encounter Summary ---
Author Organization [employer] Address [address] [place] [address] Care Team Providers Care Utilization Management Rn Name Role Phone Susie Park MD Primary Care Provide r Encounter Details Date Type Department Care Team (Late st Contact Info) Description 09/03/2023 Orders Only [facility] [address] [place], [place] [phone] Susie Park MD [address] [place], [place] [phone] Social History Tobacco Use Types Packs/Day Years [...] t he electric, gas, oil or water [employer] threatened to shut off services in your [...] Description 03/12/2025 11:30 AM EDT Office Visit [facility] [address] [place] [phone] Susie Park MD [address] [place] [phone] documented as of this encounter Visit Diagnoses Not on filedocumented in this encounter Additional Health Concerns Assessment Noted Time PHQ-9 Depression Total Score: 8 10/24/19 23 11:22 AM EST documented as of this encounter Care Teams Utilization Management Rn Relationship Specialty Start Date End Date Susie Park MD [address] [place] [phone] PCP - General Family Medicine 07/08/18 documented as of this encounter
--- OUTSIDE RECORDS SUMMARY | 2025-01-07 14:28 | XMS_ITS | Data Portability ---
Author Organization [place] - [facility], Allergy Address [address] [facility] 100 [place] [address] Care Team Providers Care Eye Care Professional Name Role Phone VICTORIANO BHATTI Primary Care [...] audiometric testing. [email or web address] Not available 11/28/2024 12:56:53 01/01/2025 01/01/2025 69yo male presents for evaluation of the ears. Otologic exam demonstrates TMs are intact with well-aerated middle ear spaces. Audiogram shows normal sloping to mild sensorineural hearing loss with excellent word recognition. Tympanometry is normal. Patient would not benefit from amplification at this time. Recommend annual follow up with repeat audiometric testing, or sooner with any concerns. [email or web address] Not available 01/01/2025 11:24:31 Plan of Treatment Reminders Order Date Submit Date Provider Last Modified By Organization Details Last Modified Time Details Appointments None recorded. Lab None recorded. Referral None recorded. Procedures None recorded. Surgeries None recorded. Imaging None recorded. Medication Orders ciprofloxac in 0.3 %-dexametha sone 0.1 % ear drops,suspe nsion 2024 025 [facility]- , [address] [place], [place], [id number], 5 10:42:25 fluocinolon e acetonide oil 0.01 % ear drops 2023 024 [facility]- , [address] [place], [place], [id number], 4 10:10:57 triamcinolo ne acetonide 0.1 % topical cream 2023 024 [facility]- , [address] [place], [place], [id number], 4 10:11:01 Patient TargetsNo targets recorded. Patient Instructions Encounter Date Encounter Id Patient Instructions Last Modified By Organization Details Last Modified Time 02/15/2024 [id number] Patient presents for cerumen removal. Successfully removed [...] 02/15/2024 13:26:31 Reason for Referral None Reported. Results Created Date Observation Date Name Description Value Unit Range Abnormal Flag Note LastModifiedBy Organization Detail LastModifiedTime 01/02/20 25 01/01/2025 imagi ng/monserrat wells tic resul t No observ ation record ed. [facility] [address], [place], [address], 01/01/2025 18:47:51 Result Notes None recorded. Problems Name Problem SNOMED Code Status Onset Date Resolution Date Notes Provider Name and Address Organization Details Recorded Time Psoriasis 4578943 Active 2021 Psoriasis , unspecifi ed; Note: Date Diagnosed : 10/07/2021 1:51 PM (L40.9) Not Available [facility] 4 03:12:14 Bilateral diffuse otitis externa 62062782895 88959 Active 2022 Diffuse otitis externa, bilateral ; Note: Date Diagnosed : 12/19/2022 9:52 AM (H60.313) Not Available [facility] 4 03:12:13 Impacted cerumen in left ear 04021736879 08905 Active 2020 Impacted cerumen, left ear; Note: Date Diagnosed : 1 7:03 AM (H61.22) Not Available [facility] 4 03:12:13 Impacted cerumen in right ear 98603896615 84672 Active 2021 Impacted cerumen, right ear; Note: Date Diagnosed : 01/26/2022 1:41 PM (H61.21) Not Available [facility] 4 03:12:12 Impacted cerumen of bilateral ears 11108173632 30395 Active 2021 Impacted cerumen, bilateral ; Note: Date Diagnosed : 12/16/2021 1:50 PM (H61.23) Not Available [facility] 4 03:12:13 Diffuse otitis externa 66539957 Active 2022 Diffuse otitis externa, right ear; Note: Date Diagnosed : 1 2:49 PM (H60.311) ; Start Date : 1 Diffuse otitis externa, left ear; Note: Date Diagnosed : 01/09/2023 10:45 AM (H60.312) Not Available [facility] 4 03:12:13 Chronic right myringiti s 05692414372 93022 Active 2020 Chronic myringiti s, right ear; Note: Date Diagnosed : 1 7:03 AM (H73.11) Not Available [facility] 4 03:12:14 Otorrhea of right ear 89007752028 65114 Active 2020 Otorrhea, right ear; Note: Date Diagnosed : 1 2:49 PM (H92.11) Not Available [facility] 4 03:12:14 Acute infective otitis externa 929359690 Active 2024 SANTA MIRANDA PA-C [address] [facility],[place] [address], [place], [address] , [facility] - [facility] 5 10:40:43 Sensorine ural hearing loss of bilateral ears 808794984 Active 2024 AGUILA POLANCO [address] [place] [address],[place] [address], [place], [address] , [facility] - [facility] 5 10:59:47 Problem Notes None recorded. Procedures Surgical History Date Name Laterality Status Provider Name and Address Organization Details Recorded Time 5 Comp Audio with Tymps - 28883 & 15427 completed JC WOODY AUD [address] [facility],[place] [address], [place], [address], [facility] - [facility] 01/01/2025 10:59:40 Cerumen removal without microscope bilat completed SANTA MIRANDA PA-C [address] [facility],[place] [address], [place], [address], [facility] - [facility] 09/19/2024 10:51:22 4 Cerumen removal without microscope bilat completed SANTA MIRANDA PA-C [address] [facility],[place] [address], [place], [address], [facility] - [facility] 06/19/2024 10:21:03 4 Cerumen removal without microscope bilat completed SANTA MIRANDA PA-C [address] [facility] [address], [place], [address], [facility] - [facility] 02/15/2024 13:26:19 Imaging Results Imaging Date Name Status LastModified by Organiz ation Details LastModified Time 01/01/2025 imaging/diagn ostic result active [facility] [address], [place], [address], 01/01/2025 18:47:51 Procedure Notes None recorded. Medical Equipment None [...] mg tablet 06/19 completed Medicati on ID: [id number] B rand Name: acarbose Send Method: E-Prescr [...] mg tablet 06/19 completed Medicati on ID: [id number] B rand Name: tramadol Send Method: E-Prescr ibed Sub s Allowed: subs OK Medic ationGen ericName : tramadol Not Available Not Available Not Available quetiapin e 100 mg tablet 06/19 completed Medicati on ID: [id number] B rand Name: quetiapi ne Send Method: [...] affected area 06/19 completed Medicati on ID: [id number] D uration Value: 30 Brand Name: Mineral [...] Available methotrex ate sodium 2.5 mg tablet 10/24 /2024 completed Not Available Not Available Not Available tamsulosi n 0.4 mg capsule active Not Available Not Available Not Available Proctozon e-HC 2.5 % topical cream perineal applicato r Apply a small amount once a day 06/19 completed Medicati on ID: [id number] D uration Value: 14 Brand Name: hydrocor [...] small amount 06/19 completed Medicati on ID: [id number] D uration Value: 14 Prescri bed By Name: HARIS Pulido nd Name: clotrima zole-bet amethaso ne Send Method: E-Prescr ibed Sub s Allowed: subs OK Specnatali al Instruct ion: Apply with fingerti p to right external ear twice daily x 2 weeks Me dication GenericN yeison: clotrima zole-bet amethaso ne Not Available Not Available Not Available halobetas ol propionat e 0.05 % topical ointment 06/19 completed Not Available Not Available Not Available Tobrex 0.3 % eye ointment 11/04 completed Medicati on ID: [id number] P rescribe d By Name: HARIS Pulido [...] a day 06/19 completed Medicati on ID: [id number] D uration Value: 14 Brand Name: hydrocor tisone S end Method: E-Prescr ibed Sub s Allowed: subs OK Medic ationGen ericName : hydrocor tisone Not Available Not Available Not Available albuterol sulfate HFA 90 mcg/actua tion aerosol inhaler active Not Available Not Available Not Available hydrocort isone 2.5 % topical ointment Apply a small amount once a day 06/19 completed Medicati on ID: [id number] D uration Value: 14 Brand Name: hydrocor tisone 2.5% Sen d Method: E-Prescr ibed Sub s Allowed: subs OK Speci al Instruct ion: to external ears Med icationG enericNa me: hydrocor tisone 2.5% Med ication ID: [id number] D uration Value: 14 Brand Name: hydrocor [...] topical ointment 11/07 completed Medicati on ID: [id number] P rescribe d By Name: HARIS Pulido nd Name: gentamic in Send Method: E-Prescr ibed Sub s Allowed: subs OK Speci al Instruct ion: Bring to next appointm ent for applicat ion Medi cationGe nericNam e: gentamic in Not Available Not Available Not Available mometason e 0.1 % topical cream 06/19 completed Medicati on ID: [id number] D uration Value: 10 Prescri bed By [...] drops,viet pension 06/19 completed Medicati on ID: [id number] D uration Value: 14 Brand Name: TobraDex [...] mg tablet 06/19 completed Medicati on ID: [id number] B rand Name: Brilinta Send Method: E-Prescr [...] nasal spray 2020 active Medicati on ID: [id number] B rand Name: Benito S end Method: E-Prescr ibed Sub s Allowed: subs OK Medic ationGen ericName : Narcan Not Available Not Available Not Available Daily-Vit e (with folic acid) 400 mcg tablet active Not Available Not Available Not Available Vitals Date Recorded Body height Provider Name an d Address Organization Details Last Updated DateTime 11/28/2024 167.64 cm FERDINAND QUINONEZ [place] [facility] 11/28/2024 11:37:12 Date Recorded Body height Body mass index (BMI) Body weight Provider Name and Address Organization Details Last Updated DateTime 02/15/2024 167.64 cm 27.9 kg/m2 95423.48 g Kacey Reyes [place] [facility] 02/15/2024 13:06:56 Date Recorded Body height Body mass index (BMI) Body weight Provider Name and Address Organization Details Last Updated DateTime 01/01/2025 167.64 cm 27.9 kg/m2 36314.48 g Mely Thornton [place] [facility] 01/01/2025 11:09:47 Date Recorded Body height Body mass index (BMI) Body weight Provider Name and Address Organization Details Last Updated DateTime 06/19/2024 167.64 cm 27.9 kg/m2 00526.48 g Alondra Márquez [place] - [facility] 06/19/2024 09:32:10 Date Recorded Body height Body mass index (BMI) Body weight Provider Name and Address Organization Details Last Updated DateTime 09/19/2024 167.64 cm 27.9 kg/m2 45798.48 g Mely Thornton [place] [facility] 09/19/2024 10:34:07 Social History None recorded. Functional Status None recorded. Mental Status None recorded. Family History Nothing Reported. Medical History No medical history recorded. Past Encounters Encounter ID Performer Location Encounter Start Date Encounter Closed Date Diagnosis/Indication Diagnosis SNOMED-CT Code Diagnosis ICD10 Code Diagnosis Note [id number] SATNA MIRANDA PA-C [facility] [address] [address] 02/15/2024 12:43:54 02/15/2024 13:30:17 Impacted cerumen of bilateral ears 7617350503 765246 H61.23 [id number] SANTA MIRANDA PA-C [facility] [address] [address] 06/19/2024 09:13:54 06/19/2024 10:12:40 Psoriasis 0685421 L40.9 Impacted c erumen of bilateral ears 3313210711 266855 H61.23 [id number] SANTA MIRANDA PA-C [facility] [address] [address] 09/19/2024 10:27:59 09/19/2024 10:47:34 Acute infective otitis externa 745605511 H60.391 Impacted c erumen of bilateral ears 0749451023 673434 H61.23 [id number] SANTOS ZIEGLER PA-C [facility] [address] [address] 11/28/2024 11:03:05 11/28/2024 11:51:45 Acute infective otitis externa 537276145 H60.391 [id number] SANTOS ZIEGLER PA-C [facility] [address] [address] 01/01/2025 10:26:57 01/01/2025 11:17:27 Sensorineural hearing loss of bilateral ears 103601461 H90.3 Right Ear:Normal hearing through 6K Hz sloping to a mild SNHL with excellent speech discrimina tion.Type A tympanogra m.Left Ear:Normal hearing through 4K Hz sloping to a mild SNHL with excellent speech discrimina tion.Type A tympanogra m. Health Concerns Section Related Observation LastModified by Organization Detai ls LastModified Time None Recorded Concern Status LastModified by Organization Details LastModified Time None Recorded Advance Directives Directive None Recorded Payers Insurance Date Sequence Insurance Name Policy Number Policy Ruiz Covered Member ID Ruiz Member ID Guarantor Name 01/01/2025 1 [facility] - DOS ON OR AFTER 2022 - MEDICARE ADVANTAGE [place] (MEDICARE REPLACEMENT/ADV ANTAGE - PPO) Elio Calles [id number] Elio Calles Notes Date Note Type Note Provider Name and Address Organization Details Recorded Time 02/15/2024 text/html 68-year-old male presents for evaluation of the ears. Denies change in hearing, otalgia, otorrhea. Using Vaseline and keeping ears dry in the shower, denies Q-tip use. TSEPHANIA CUNNINGHAM MD [address] [place] [address],[address], [address], [facility] 02/15/2024 16:47:54 06/19/2024 text/html 69-year-old male presents for evaluation of the ears. He reports dry flaky skin in the left greater than right ear that he digs out with a fingernail. He has a history of psoriasis that has been flaring up lately he does not see dermatology. He denies otalgia, otorrhea, and change in hearing. DAILY FUNES MD [address] [place] [address],[address], [address], [facility] 06/19/2024 17:32:09 09/19/2024 text/html 69-year-old male [...] hearing, otalgia, and otorrhea. STEPHANIA CUNNINGHAM MD [address] [place] [address],[address], [address], [facility] 09/19/2024 12:41:03 11/28/2024 text/html 69-year-old male presents following right sided acute otitis externa. He trialed topical Ciprodex, and reports symptoms resolved. Hearing returned to baseline, but he is interested in returning for formal hearing evaluation. TEODORO AMADOR MD [address] [place] [address], [address], [place] - [facility] 11/29/2024 09:22:49 01/01/2025 text/html 69yo male presen ts for evaluation of hearing loss. This has been gradual for one year. History of recurrent ear infections. Denies ear pain, drainage, tinnitus or dizziness. Denies prior ear surgeries. Current smoker. AKIRA GARCIA MD [address] [place] [address], [place], [address], [place] - [facility] 01/01/2025 17:23:39
--- OUTSIDE RECORDS SUMMARY | 2025-01-07 14:28 | XMS_ITS | Encounter Summary ---
Author Organization [employer] Address [address] [facility] [address] [place] [address] Care Team Providers Care Talent Development Coordinator Name Role Phone Susie Park MD Primary Care Provide r Reason for Visit * Reason Comments Med Refill Encounter Details Date Type Department Care Team (Late st Contact Info) Description 09/17/2024 Refill [facility] MED & PEDS [address] [place], [place] [phone] Susie Park MD [address] [place] [address] Social History Tobacco Use Types Packs/Day Years [...] Description 03/12/2025 11:30 AM EDT Office Visit [facility] MEDICINE [address] [place] [address] Susie Park MD [address] [place] [address] documented as of this encounter Visit Diagnoses Not on filedocumented in this encounter Additional Health Concerns Assessment Noted Time PHQ-9 Depression Total Score: 9 04/14/20 24 10:39 AM EDT documented as of this encounter Care Teams Talent Development Coordinator Relationship Specialty Start Date End Date Susie Park MD [address] [place], [place] [phone] PCP - General Family Medicine 07/08/18 documented as of this encounter
--- OUTSIDE RECORDS SUMMARY | 2025-01-07 14:28 | XMS_ITS | Encounter Summary ---
Author Organization [employer] Address [address] [facility] 7t [place] [address] Care Team Providers Care Economic Forecaster Name Role Phone Susie Park MD Primary Care Provide r Reason for Visit * Reason Onset Date Comments Nurse Triage 10/18/2023 Encounter Details Date Type Department Care Team ([facility] st Contact Info) Description 10/18/2023 Telephone [facility] MED[facility] [address] [place], [place] [phone] Susie Park MD [address] [place], [place] [phone] Nurse Triage Social History Tobacco Use Types [...] and daughter advised of disposition, agree to [facility] now for exam due [...] Description 03/12/2025 11:30 AM EDT Office Visit [facility] [address] [place] [address] Susie Park MD [address] [place] [address] documented as of this encounter Visit Diagnoses Not on filedocumented in this encounter Additional Health Concerns Assessment Noted Time PHQ-9 Depression Total Score: 8 10/24/19 23 11:22 AM EST documented as of this encounter Care Teams Economic Forecaster Relationship Specialty Start Date End Date Susie Park MD [address] [place], [place] [phone] PCP - General Family Medicine 07/08/18 documented as of this encounter
--- OUTSIDE RECORDS SUMMARY | 2025-01-07 14:28 | XMS_ITS | Encounter Summary ---
Author Organization [employer] Address [address] [facility] 7t [place] [address] Care Team Providers Care Mirror Department Supervisor Name Role Phone Susie Park MD Primary Care Provide r Reason for Referral * Medications - Closed Specialty Diagnoses / Procedures Referred By John Paul marroquin Referred To Contact Diagnoses Psoriasis vulgaris Susie Park MD [address] [place] [address] Phone: tel: fax: Referral ID Status Reason Start Date Expiration Date Visits Re quested Visits Authorized [id number] Closed 01/02/2025 01/02/2026 1 1 Reason for Visit * Reason Onset Date Comments Med Refill 01/02/2025 Encounter Details Date Type Department Care Team ([facility] st Contact Info) Description 01/02/2025 Refill [facility] MED & PEDS [address] [place], [place] [phone] Ssuie Park MD [address] [place] [address] Psoriasis vulgaris Social History Tobacco Use Types Packs/Day Years [...] with others, in a hotel, in a prison, living outside on the street, on a [...] Office Visit [facility] [address] [place] [address] Susie Park MD [address] [place] [address] documented as of this encounter Visit Diagnoses Diagnosis Psoriasis vulgaris Other psoriasis documented in this encounter Additional Health Concerns Assessment Noted Time PHQ-9 Depression Total Score: 9 04/14/20 24 10:39 AM EDT documented as of this encounter Care Teams Mirror Department Supervisor Relationship Specialty Start Date End Date Susie Park MD [address] [place] [address] PCP - General Family Medicine 07/08/18 documented as of this encounter
--- OUTSIDE RECORDS SUMMARY | 2025-01-07 14:28 | XMS_ITS | Encounter Summary ---
Author Organization [email or web address] Address [address] [facility] [address] [place] [address] Care Team Providers Care Single Stayer Operator Name Role Phone Susie Park MD Primary Care Provide r Reason for Visit * Reason Comments Med Refill Encounter Details Date Type Department Care Team (Late st Contact Info) Description 08/19/2024 Refill [facility] MED & PEDS [address] [place], [place] [phone] Susie Park MD [address] [place] [address] Social History Tobacco Use Types Packs/Day Years [...] Description 03/12/2025 11:30 AM EDT Office Visit [facility] [address] [place] [address] Susie Park MD [address] [place] [address] documented as of this encounter Visit Diagnoses Not on filedocumented in this encounter Additional Health Concerns Assessment Noted Time PHQ-9 Depression Total Score: 9 04/14/20 24 10:39 AM EDT documented as of this encounter Care Teams Single Stayer Operator Relationship Specialty Start Date End Date Susie Park MD [address] [place], [place] [phone] PCP - General Family Medicine 07/08/18 documented as of this encounter
--- OUTSIDE RECORDS SUMMARY | 2025-01-07 14:28 | XMS_ITS | Encounter Summary ---
Author Organization [employer] Address [address] [facility] 7t [place] [address] Care Team Providers Care Paralegal Specialist Name Role Phone Susie Park MD Primary Care Provide r Encounter Details Date Type Department Care Team ([facility] Contact Info) Description 03/07/2023 Orders Only [facility] [address] [place] [address] Jodie Mejia MD [address] [place] [address] Psoriasis (Primary Dx) Social History Tobacco Use [...] Upcoming Encounters Date Type Department Care Team ([facility] Contact Info) Description 03/12/2025 11:30 AM EDT Office Visit [facility] [address] [place] [address] Susie Park MD [address] [place] [address] Scheduled Orders Name Type Priority Associated Diagnoses [...] documented as of this encounter Care Teams Paralegal Specialist Relationship Specialty Start Date End Date Susie Park MD [address] [place] [address] PCP - General Family Medicine 07/08/18 documented as of this encounter
--- NOTE | 2025-01-07 14:33 | A.OFFVIS_ITS ---
Intake Visit Reasons: [facility] Reff/ Latent TB Allergies Penicillins Allergy (Mild, Verified 12/24/24 13:19) RASH ciprofloxacin [From Cipro] Allergy (Unknown, Verified 12/24/24 13:19) RASH HPI HPI [facility] Reff/ Latent TB: Details: He reports positive T spot done recently He converted to TB positive as child and Hereceived 3 years of INH based regimen for active?TB He has psoriasis and is looking at biologics so want to try not to reactivate tuberculosis. REPLACED BY [facility] Medical History (Updated 01/08/25 @ 00:01 by Samanta Desouza MD) Latent tuberculosis Abnormal CT scan, gastrointestinal tract Memory difficulties On anticoagulant therapy On beta russ at home Angina of effort HLD (hyperlipidemia) HTN (hypertension) COPD (chronic obstructive pulmonary disease) Arthritis Diabetes mellitus, type 2 Coronary artery disease Dizziness Peripheral vascular disease Surgical History Hx of colonoscopy S/P cardiac catheterization (~12/2020) S/P cardiac cath (~04/2020) Stented coronary artery S/P cardiac cath (~08/2019) S/P CABG x 3 (~09/2018) H/O coronary artery bypass surgery Social History Household Members: Children Housing: House Alcohol intake: current Alcohol intake frequency: holidays/special occasions only Patient Tobacco Use Status: Current everyday Tobacco user Tobacco use type: Cigarette Cigarette Packs Per Day: 1 Cigarettes Per Day: 8 Advance Directives Date on File: 04/24/22 service: No Current occupational status: disabled Review of Systems Const All systems reviewed & are unremarkable except as noted in HPI and below Physical Exam Const General: cooperative Orientation/consciousness: patient oriented x3 HEENT Head: Yes normal to inspection General nose exam: Normal external nose present Mouth: Normal oral and palatal mucosa present Eyes General: appearance normal, both eyes and all related structures Pupils: Equal, round and reactive pupils present Resp Effort & Inspection: normal respiratory effort Cardio Rate: regular rate Rhythm: regular rhythm GI Palpation (GI): Soft to palpation and nontender General: Yes no CVA tenderness Back/Spine/Pelvis Back: no CVA tenderness Skin General skin exam: no rashes or lesions noted Neuro General: patient oriented x3 Cranial nerves: Yes CN's II-XII intact bilaterally and Yes Equal, round and reactive pupils present Extrem General: Yes normal to inspection Psych Appearance: grossly normal Assessment & Plan Assessment & Plan (1) Latent tuberculosis: Comment: He has no symptoms of TB and was treated for latent TB likely with INH only Code(s): Z22.7 - Latent tuberculosis Category: Medical Plan: No further treatment for latent TB. He has about 5% or less chance of reactivation with immune suppression with psoriasis biologics and wants to proceed with biologics if needed. He also has about similar chance of reactivation with age but not necessarily synergistic. Coding Level of Care Code New Pt Level 3 (74449) Diagnoses Latent tuberculosis Z22.7
== END 2025-01-07 15:24 | disposition home or self-care (01) ==
PROVIDERS: PCP Internal Medicine; Visit Provider Internal Medicine
DX: Z22.7 Latent tuberculosis (principal)
CPT/HCPCS: 99203

== ENCOUNTER → 2025-01-07 14:24 | Outpatient (BNVA) | payer OTHER, SELFPAY | PROVIDERS: PCP Internal Medicine; Visit Provider Internal Medicine | DX: Z22.7 Latent tuberculosis (principal) | CPT/HCPCS: 99202 ==

== ENCOUNTER 2025-01-15 12:37 | Outpatient (AMB) | payer OTHER, SELFPAY ==
--- OUTSIDE RECORDS SUMMARY | 2025-01-15 12:40 | XMS_ITS | Encounter Summary ---
Author Organization [employer] Address [address] [facility] 7t [place] [address] Care Team Providers Care Dental Mold Maker Name Role Phone Susie Park MD Primary Care Provide r Reason for Visit * Reason Comments Med Refill Encounter Details Date Type Department Care Team (Late st Contact Info) Description 01/08/2025 Refill [facility] CHC MED & PEDS [address] [place], [place] [phone] Susie Park MD [address] [place] [address] Social History Tobacco Use Types Packs/Day Years [...] Description 03/12/2025 11:30 AM EDT Office Visit [facility] MEDICINE [address] [place] [address] Susie Park MD [address] [place] [address] documented as of this encounter Visit Diagnoses Not on filedocumented in this encounter Additional Health Concerns Assessment Noted Time PHQ-9 Depression Total Score: 9 04/14/20 24 10:39 AM EDT documented as of this encounter Care Teams Dental Mold Maker Relationship Specialty Start Date End Date Susie Park MD [address] [place], [place] [phone] PCP - General Family Medicine 07/08/18 documented as of this encounter
--- OUTSIDE RECORDS SUMMARY | 2025-01-15 12:40 | XMS_ITS | Encounter Summary ---
Author Organization [employer] Address [address] [facility] 7t [place] [address] Care Team Providers Care Crane Manager Name Role Phone Susie Park MD Primary Care Provide r Reason for Visit * Reason Comments Med Refill Encounter Details Date Type Department Care Team (Late st Contact Info) Description 09/17/2024 Refill [facility] CHC MED & PEDS [address] [place], [place] [phone] Susie Park MD [address] [place] [address] Social History Tobacco Use Types Packs/Day Years [...] 11:30 AM EDT Office Visit [facility] MEDICINE [address] [place] [address] Susie Park MD [address] [place] [address] documented as of this encounter Visit Diagnoses Not on filedocumented in this encounter Additional Health Concerns Assessment Noted Time PHQ-9 Depression Total Score: 9 04/14/20 24 10:39 AM EDT documented as of this encounter Care Teams Crane Manager Relationship Specialty Start Date End Date Susie Park MD [address] [place], [place] [phone] PCP - General Family Medicine 07/08/18 documented as of this encounter
--- OUTSIDE RECORDS SUMMARY | 2025-01-15 12:40 | XMS_ITS | Encounter Summary ---
Author Organization [email or web address] Address [address] [facility] 7t [place] [address] Care Team Providers Care Front Desk Person Name Role Phone Susie Park MD Primary Care Provide r Reason for Visit * Reason Comments Med Refill Encounter Details Date Type Department Care Team (Late st Contact Info) Description 08/19/2024 Refill [facility] CHC MED & PEDS [address] [place], [place] [phone] Susie Park MD [address] [place] [address] Social History Tobacco Use Types Packs/Day Years [...] Description 03/12/2025 11:30 AM EDT Office Visit [facility] MEDICINE [address] [place] [address] Susie Park MD [address] [place] [address] documented as of this encounter Visit Diagnoses Not on filedocumented in this encounter Additional Health Concerns Assessment Noted Time PHQ-9 Depression Total Score: 9 04/14/20 24 10:39 AM EDT documented as of this encounter Care Teams Front Desk Person Relationship Specialty Start Date End Date Susie Park MD [address] [place], [place] [phone] PCP - General Family Medicine 07/08/18 documented as of this encounter
--- OUTSIDE RECORDS SUMMARY | 2025-01-15 12:40 | XMS_ITS | Encounter Summary ---
Author Organization [employer] Address [address] [facility] 7t [place] [address] Care Team Providers Care Isotope Hydrologist Name Role Phone Susie Park MD Primary Care Provide r Reason for Visit * Reason Comments Med Refill Encounter Details Date Type Department Care Team ([facility] st Contact Info) Description 09/20/2023 Refill [facility] MEDICINE 230 [place], [place] [phone] Kacey Edwards MD [address] [place], [place] [phone] Otitis externa of both ears, unspecified chronicity, [...] Description 03/12/2025 11:30 AM EDT Office Visit [facility] MEDICINE [address] [place] [address] Susie Park MD [address] [place] [address] documented as of this encounter Visit Diagnoses Diagnosis Otitis externa of both ears, unspecified chronicity, unspecified type documented in this encounter Additional Health Concerns Assessment Noted Time PHQ-9 Depression Total Score: 8 10/24/19 23 11:22 AM EST documented as of this encounter Care Teams Isotope Hydrologist Relationship Specialty Start Date End Date Susie Park MD [address] [place] [address] PCP - General Family Medicine 07/08/18 documented as of this encounter
--- OUTSIDE RECORDS SUMMARY | 2025-01-15 12:40 | XMS_ITS | Encounter Summary ---
Author Organization [email or web address] Address [address] [facility] [address] 7[address] [place] [address] Care Team Providers Care Conduit Reamer Operator Name Role Phone Susie Park MD Primary Care Provide r Encounter Details Date Type Department Care Team ([facility] st Contact Info) Description 09/03/2023 Orders Only [facility] MEDICINE [address] [place], [place] [phone] Susie Park MD [address] [place], [place] [phone] Social History Tobacco Use Types Packs/Day Years [...] 03/12/2025 11:30 AM EDT Office Visit [facility] MED[facility] [address] [place] [address] Susie Park MD [address] [place] [address] documented as of this encounter Visit Diagnoses Not on filedocumented in this encounter Additional Health Concerns Assessment Noted Time PHQ-9 Depression Total Score: 8 10/24/19 23 11:22 AM EST documented as of this encounter Care Teams Conduit Reamer Operator Relationship Specialty Start Date End Date Susie Park MD [address] [place] [address] PCP - General Family Medicine 07/08/18 documented as of this encounter
--- OUTSIDE RECORDS SUMMARY | 2025-01-15 12:40 | XMS_ITS | Data Portability ---
Author Organization [place] - [facility] Address [address] [facility] 100 [place] [address] Care Team Providers Care Shoe Puller Name Role Phone VICTORIANO BHATTI Primary Care [...] 0.1 % ear drops,suspe nsion [address] [facility]- , [address] [place], [place], [id number], 5 10:42:25 fluocinolon e acetonide oil 0.01 % ear drops [address] [facility]- , [address] [place], [place], [id number], 4 10:10:57 triamcinolo ne acetonide 0.1 % topical cream [address] [facility]- , [address] [place], [place], [id number], 4 10:11:01 Patient TargetsNo targets recorded. Patient Instructions Encounter Date Encounter Id Patient Instructions Last Modified By Organization Details Last Modified Time 02/15/2024 [id number] Patient presents for cerumen removal. Successfully removed [...] Abnormal Flag Note LastModifiedBy Organization Detail LastModifiedTime 01/02/2001/01/2025 audio gram No observ ation record ed. [email or web address] [facility] [address], [place], [address], 01/09/2025 16:12:20 Result Notes None recorded. Problems Name Problem SNOMED Code Status Onset Date Resolution Date Notes Provider Name and Address Organization Details Recorded Time Psoriasis 7000128 Active 2021 Psoriasis , unspecifi ed; Note: Date Diagnosed : 10/07/2021 1:51 PM (L40.9) Not Available [facility] 4 03:12:14 Bilateral diffuse otitis externa 00106678771 69610 Active 2022 Diffuse otitis externa, bilateral ; Note: Date Diagnosed : 12/19/2022 9:52 AM (H60.313) Not Available [facility] 4 03:12:13 Impacted cerumen in left ear 79544687107 95989 Active 2020 Impacted cerumen, left ear; Note: Date Diagnosed : 1 7:03 AM (H61.22) Not Available [facility] 4 03:12:13 Impacted cerumen in right ear 47518320962 26915 Active 2021 Impacted cerumen, right ear; Note: Date Diagnosed : 01/26/2022 1:41 PM (H61.21) Not Available [facility] 4 03:12:12 Impacted cerumen of bilateral ears 05963897777 57796 Active 2021 Impacted cerumen, bilateral ; Note: Date Diagnosed : 12/16/2021 1:50 PM (H61.23) Not Available [facility] 4 03:12:13 Diffuse otitis externa 40979974 Active 2022 Diffuse otitis externa, right ear; Note: Date Diagnosed : 1 2:49 PM (H60.311) ; Start Date : Diffuse otitis externa, left ear; Note: Date Diagnosed : 01/09/2023 10:45 AM (H60.312) Not Available [facility] 4 03:12:13 Chronic right myringiti s 50781034582 10090 Active 2020 Chronic myringiti s, right ear; Note: Date Diagnosed : 1 7:03 AM (H73.11) Not Available [facility] 4 03:12:14 Otorrhea of right ear 32317462935 19785 Active 2020 Otorrhea, right ear; Note: Date Diagnosed : 1 2:49 PM (H92.11) Not Available [facility] 4 03:12:14 Acute infective otitis externa 196437082 Active 2024 SANTA MIRANDA PA-C [address] [facility],[place] [address], [place], [address] , [place] - [facility] 5 10:40:43 Sensorine ural hearing loss of bilateral ears 279872617 Active 2024 AGUILA POLANCO [address] [facility],[place] [address], [place], [address] , [place] - [facility] 5 10:59:47 Problem Notes None recorded. Procedures Surgical History Date Name Laterality Status Provider Name and Address Organization Details Recorded Time 5 Comp Audio with Tymps - 23547 & 49379 completed JC WOODY AUD [address] [facility],[place] [address], [place], [address], [place] - [facility] 01/01/2025 10:59:40 5 Cerumen removal without microscope bilat completed SANTA MIRANDA PA-C [address] [facility],[place] [address], [place], [address], [place] - [facility] 09/19/2024 10:51:22 4 Cerumen removal without microscope bilat completed SANTA MIRANDA PA-C [address] [facility] [address], [place], [address], [facility] - [facility] [place] 06/19/2024 10:21:03 4 Cerumen removal without microscope bilat completed SANTA MIRANDA PA-C [address] [facility], [place], [address], [facility] - [facility] [place] 02/15/2024 13:26:19 Imaging Results Imaging Date Name Status LastModified by Organiz ation Details LastModified Time 01/01/2025 audiogram completed [id number] [facility] [address], [place], [address], 01/09/2025 16:12:20 Procedure Notes None recorded. Medical Equipment None [...] mg tablet 06/19 completed Medicati on ID: [id number] B rand Name: acarbose Send Method: E-Prescr [...] mg tablet 06/19 completed Medicati on ID: [id number] B rand Name: tramadol Send Method: E-Prescr ibed Sub s Allowed: subs OK Medic ationGen ericName : tramadol Not Available Not Available Not Available quetiapin e 100 mg tablet 06/19 completed Medicati on ID: [id number] B rand Name: quetiapi ne Send Method: [...] affected area 06/19 completed Medicati on ID: [id number] D uration Value: 30 Brand Name: Mineral [...] a day 06/19 completed Medicati on ID: [id number] D uration Value: 14 Brand Name: hydrocor [...] small amount 06/19 completed Medicati on ID: [id number] D uration Value: 14 Prescri bed By [...] eye ointment 11/04 completed Medicati on ID: [id number] P rescribe d By Name: HARIS Pulido [...] a day 06/19 completed Medicati on ID: [id number] D uration Value: 14 Brand Name: hydrocor tisone S end Method: E-Prescr ibed Sub s Allowed: subs OK Medic ationGen ericName : hydrocor tisone Not Available Not Available Not Available albuterol sulfate HFA 90 mcg/actua tion aerosol inhaler active Not Available Not Available Not Available hydrocort isone 2.5 % topical ointment Apply a small amount once a day 06/19 completed Medicati on ID: [id number] D uration Value: 14 Brand Name: hydrocor tisone 2.5% Sen d Method: E-Prescr ibed Sub s Allowed: subs OK Speci al Instruct ion: to external ears Med icationG enericNa me: hydrocor tisone 2.5% Med ication ID: [id number] D uration Value: 14 Brand Name: hydrocor [...] topical ointment 11/07 completed Medicati on ID: [id number] P rescribe d By Name: HARIS Pulido nd Name: gentamic in Send Method: E-Prescr ibed Sub s Allowed: subs OK Speci al Instruct ion: Bring to next appointm ent for applicat ion Medi cationGe nericNam e: gentamic in Not Available Not Available Not Available mometason e 0.1 % topical cream 06/19 completed Medicati on ID: [id number] D uration Value: 10 Prescri bed By Name: HARIS Pulido nd Name: pratima ne Send Method: E-Prescr ibed Sub s Allowed: subs OK Speci al Instruct ion: Apply a small amount to external ear twice a day x 10 days Med icationG enericNa me: pratima ne Not Available Not Available Not Available One Daily Multivita min tablet active Not Available Not Available Not Available TobraDex 0.3 %-0.1 % eye drops,viet pension 06/19 completed Medicati on ID: [id number] D uration Value: 14 Brand Name: TobraDex [...] mg tablet 06/19 completed Medicati on ID: [id number] B rand Name: Brilinta Send Method: E-Prescr [...] nasal spray 2020 active Medicati on ID: [id number] B rand Name: Benito S end Method: E-Prescr ibed Sub s Allowed: subs OK Medic ationGen ericName : Narcan Not Available Not Available Not Available Daily-Vit e (with folic acid) 400 mcg tablet active Not Available Not Available Not Available Vitals Date Recorded Body height Provider Name an d Address Organization Details Last Updated DateTime 11/28/2024 167.64 cm FERDINAND QUINONEZ [place] [facility] 11/28/2024 11:37:12 Date Recorded Body height Body mass index (BMI) Body weight Provider Name and Address Organization Details Last Updated DateTime 02/15/2024 167.64 cm 27.9 kg/m2 01823.48 g Kacey Reyes [place] - [facility] 02/15/2024 13:06:56 Date Recorded Body height Body mass index (BMI) Body weight Provider Name and Address Organization Details Last Updated DateTime 01/01/2025 167.64 cm 27.9 kg/m2 09588.48 g Mely [place] [facility] 01/01/2025 11:09:47 Date Recorded Body height Body mass index (BMI) Body weight Provider Name and Address Organization Details Last Updated DateTime 06/19/2024 167.64 cm 27.9 kg/m2 89775.48 g Alondra Márquez [place] - [facility] 06/19/2024 09:32:10 Date Recorded Body height Body mass index (BMI) Body weight Provider Name and Address Organization Details Last Updated DateTime 09/19/2024 167.64 cm 27.9 kg/m2 91285.48 g Mely [place] [facility] 09/19/2024 10:34:07 Social History None recorded. Functional Status None recorded. Mental Status None recorded. Family History Nothing Reported. Medical History No medical history recorded. Past Encounters Encounter ID Performer Location Encounter Start Date Encounter Closed Date Diagnosis/Indication Diagnosis SNOMED-CT Code Diagnosis ICD10 Code Diagnosis Note [id number] SANTA MIRANDA PA-C [facility] [address] [address] 02/15/2024 12:43:54 02/15/2024 13:30:17 Impacted cerumen of bilateral ears [id number] 416652 H61.23 [id number] SANTA MIRANDA PA-C [facility] [address] [address] 06/19/2024 09:13:54 06/19/2024 10:12:40 Psoriasis 9310265 L40.9 Impacted c erumen of bilateral ears 0584359355 393283 H61.23 [id number] SANTA MIRANDA PA-C [facility] [address] [address] 09/19/2024 10:27:59 09/19/2024 10:47:34 Acute infective otitis externa 992097806 H60.391 Impacted c erumen of bilateral ears 5284342688 444731 H61.23 [id number] SANTOS ZIEGLER PA-C [facility] [address] [address] 11/28/2024 11:03:05 11/28/2024 11:51:45 Acute infective otitis externa 608767198 H60.391 [id number] SANTOS ZIEGLER PA-C [facility] [address] [address] 01/01/2025 10:26:57 01/01/2025 11:17:27 Sensorineural hearing loss of bilateral ears 385901818 H90.3 Right Ear:Normal hearing through 6K Hz [...] Ruiz Member ID Guarantor Name 01/01/2025 1 [facility] - DOS ON OR AFTER 2022 - MEDICARE ADVANTAGE [place] & [place] (MEDICARE REPLACEMENT/ADV ANTAGE - PPO) Elio Calles [id number] Elio Calles Notes Date Note Type Note Provider Name and Address Organization Details Recorded Time 02/15/2024 text/html 68-year-old male presents for evaluation of the ears. Denies change in hearing, otalgia, otorrhea. Using Vaseline and keeping ears dry in the shower, denies Q-tip use. STEPHANIA CUNNINGHAM MD [address] [place] [address],[address], [address], [facility] 02/15/2024 16:47:54 06/19/2024 text/html 69-year-old male presents for evaluation of the ears. He reports dry flaky skin in the left greater than right ear that he digs out with a fingernail. He has a history of psoriasis that has been flaring up lately he does not see dermatology. He denies otalgia, otorrhea, and change in hearing. DAILY FUNES MD [address] [place] [address],[address], [address], [facility] 06/19/2024 17:32:09 09/19/2024 text/html 69-year-old male with [...] hearing, otalgia, and otorrhea. STEPHANIA CUNNINGHAM MD [address] [place] [address],[address], [address], [facility] 09/19/2024 12:41:03 11/28/2024 text/html 69-year-old male presents following right sided acute otitis externa. He trialed topical Ciprodex, and reports symptoms resolved. Hearing returned to baseline, but he is interested in returning for formal hearing evaluation. TEODORO AMADOR MD [address] [place] [address], [address], [place] - [facility] 11/29/2024 09:22:49 01/01/2025 text/html 69yo male presen ts for evaluation of hearing loss. This has been gradual for one year. History of recurrent ear infections. Denies ear pain, drainage, tinnitus or dizziness. Denies prior ear surgeries. Current smoker. AKIRA GARCIA MD [address] [place] [address], [place], [address], [facility] - [facility] 01/01/2025 17:23:39
--- OUTSIDE RECORDS SUMMARY | 2025-01-15 12:40 | XMS_ITS | Encounter Summary ---
Author Organization [employer] Address [address] [facility] 7t [place] [address] Care Team Providers Care Cloth Dyer Name Role Phone Susie Park MD Primary Care Provide r Encounter Details Date Type Department Care Team ([facility] Contact Info) Description 03/07/2023 Orders Only [facility] MEDICINE [address] [place] [phone] Jodie Mejia MD [address] [place] [address] Psoriasis (Primary Dx) Social History Tobacco Use [...] Date Type Department Care Team ([facility] Contact Info) Description 03/12/2025 11:30 AM EDT Office Visit [facility] MEDICINE [address] [place] [address] Susie Park MD [address] [place] [address] Scheduled Orders Name Type Priority Associated Diagnoses [...] documented as of this encounter Care Teams Cloth Dyer Relationship Specialty Start Date End Date Susie Park MD [address] [place] [address] PCP - General Family Medicine 07/08/18 documented as of this encounter
--- OUTSIDE RECORDS SUMMARY | 2025-01-15 12:40 | XMS_ITS | Clinical Summary ---
Author Organization [employer] Address [address] [facility] 7t [place] [address] Care Team Providers Care Hydroelectric Powerplant Supervisor Name Role Phone Susie Park MD [...] MG SL tabletIndication s:Coronary artery disease involving [place] coronary artery of [place] heart with angina pectoris (CMS/HCC) Place 1 [...] MG EC tabletIndication s:Coronary artery disease involving [place] coronary artery of [place] heart with angina pectoris ([facility]/HCC) TAKE 1 TABLET BY MOUTH EVERY NIGHT [...] TWICE A DAY 100 each 025 Active glucose blood (FREESTYLE LITE) test stripIndications :Type 2 diabetes mellitus with other specified complication, with long-term current use of insulin ([facility]) TEST BLOOD SUGAR TWICE A DAY 100 each 025 Active insulin pen needle (UltiCare Micro Pen [place]) 32G x 4 mm misc USE DAILY [...] at the same time. 30 patch 025 Active betamethasone, augmented, (Diprolene) 0.05 % ointmentIndicati [...] daily. 60 g 1 024 2024 Discontinued halobetasol (UltraVATE) 0.05 % ointment Apply topically 2 times daily. 50 g 1 024 2024 Discontinued calcipotriene (Dovonex) 0.005 % creamIndications :Psoriasis vulgaris [...] (08/31/2022 9:40 PM EST): Patient to call [facility] to schedule abd US, a VM had [...] knee 08/22/2022 Coronary artery disease invo lving [place] coronary artery of [place] heart with angina pectoris 08/22/2022 Assessment & [...] Encounters Date Type Department Care Team Description 01/12/2025 Refill [facility] [address] [place] [address] Susie Park MD 01/08/2025 Refill [facility] [address] [place] [address] Susie Park MD 01/02/2025 Refill [facility] [address] [place] [address] Susie Park MD Psoriasis vulgaris 12/30/2024 Telephone [facility] [address] [place] [phone] Susie Park MD [facility] incoming call 12/26/2024 10:00 AM EDT Office Visit [facility] [address] [place] [address] [phone] Chad Mello MD Psoriasis vulgaris (Primary Dx); LTBI (latent tuberculosis infection) 12/26/2024 Telephone [facility] [address] [place] [address] [phone] Susie Park MD Medication Question 12/26/2024 Orders Only GENERIC EXTERNAL DATA DEPARTMENT Provider, Generic External Data 12/26/2024 Travel 12/22/2024 Orders Only [facility] External Provider, [facility] 12/11/2024 10:00 AM EDT Office Visit [facility] [address] [place] [address] Susie Park MD Type 2 diabetes mellitus with other specified complication, with long-term current use of insulin (CMS/HCC) (Primary Dx); HTN (hypertension), benign; Severe persistent asthma without complication; Mood disorder (CMS/HCC); Coronary artery disease involving [place] coronary artery of [place] creek heart with angina pectoris (CMS/HCC); Smoker 12/11/2024 Travel 12/10/2024 Refill [facility] [address] [place] [address] Susie Park MD Intrinsic eczema; Primary osteoarthritis of both knees 12/04/2024 Telephone [facility] [address] [place] [address] Susie Park MD Chart Prep 12/03/2024 Telephone [facility] [address] [place] [address] Susie Park MD 12/03/2024 Telephone [facility] [address] [place] [address] Susie Park MD Appointment Request 11/25/2024 Refill [facility] [address] [place] [address] Susie Park MD 11/11/2024 Refill [facility] MED & PEDS [address] [place] [address] Susie Park MD Type 2 diabetes mellitus with other specified complication, with long-term current use of insulin (CMS/HCC); Primary osteoarthritis of both knees 11/05/2024 Orders Only GENERIC EXTERNAL DATA DEPARTMENT Provider, Generic External Data from Last 3 Months Immunizations Immunization Administration [...] Description 03/12/2025 11:30 AM EDT Office Visit [facility] [address] [place] [address] Susie Park MD [address] [place] [address] Health Maintenance Due Date Last Done Comments [...] 3 Influenza Vaccine (#1) 2024 04/23/2012, 2010 COVID-19 Vaccine ( season) 2024 05/16/2024, 10/24/2022, 07/15/2021, Additional history exists Depression Screening 04/14/2025 04/14/2024, 04/14/20 24 Diabetes: Hemoglobin A1C 06/12/2025 025, 07/15/2024, 04/14/2024, Additional history exists Alcohol/Substance Use Screening 07/15/2025 07/15/2024 SDOH Screening 07/15/2025 07/15/2024 Tobacco Screening 12/11/2025 12/11/2024 Lipid Panel 12/26/2025 12/26/2024, 0804/2024, 04/14/2024, Additional history exists Colonoscopy 04/12/2027 04/12/2022 Colorectal Cancer Screening 04/12/2027 DTaP/Tdap/Td Vaccines (2 - Td or Tdap) 06/20/2027 06/20/2017, 02/09/2009 Hepatitis A Vaccines Aged Out 12/16/2008, 06/17/20 08 No longer eligible based on patient's age to complete this topic Hepatitis B Vaccines Completed 12/16/2008, 07/22/2008, 06/17/2008 Pneumococcal Vaccine: 50+ Years Completed 12/08/2022, 02/09/2009 Hepatitis C Screening Completed 03/12/2023 HIB Vaccines Aged Out No longer eligi ble based on patient's age to complete this topic HPV Vaccines Aged Out No longer eligi ble based on patient's age to complete this topic IPV Vaccines Aged Out No longer eligi ble based on patient's age to complete this topic Meningococcal B Vaccine Aged Out No l onger eligible based on patient's age to complete [...] EDT) T Spot TB Positive( A) Negative [facility] Comment: Diagnosing or excluding tuberculosis [...] as aquantitative test. TS PANEL A 40 [facility] TS PANEL B 8 [facility] Negative Control Passed [facility] Positive Control Passed [facility] Comment:For additional infor matcheri, please refer [email or web address].MaulSoup/faq/WVK622(This link is being provided for informational/educational purposes only.)REPORT COMMENT:REC'D AT [facility] TEST WAS PERFORMED AT:[employer] [id number] [place] [address]XZMLBEVJOSE FUNES MD,PHD 12/26/2024 10:3 8 AM EDT 12/26/2024 11:08 AM EDT us Chad Mello MD LAB BLOOD ORDERABLES Final Re sult [facility] [address] [place] [address] [phone] * (ABNORMAL) Lipid Panel, Standard (12/26/2024 10:38 AM EDT) Triglycerides 124 <150 mg/dL [facility] Comment:Desirable Triglyceri de: less than 150 mg/dLBorderline High Triglyceride 150-199 mg/dLHigh Triglyceride: 200-499 mg/dLVery High Triglyceride: greater than or equal to 5OO mg/dL Cholesterol 205(H) <200 mg/dL [facility] Comment:Desirable Cholestero l: less than 200 mg/dLBorderline High Cholesterol: 200-239 mg/dLHigh Cholesterol: greater than 239 mg/dL LDL Cholesterol Calculated 138(H) <100 mg/dL [facility] Comment:Desirable LDL: less than 100 mg/dLNear Optimal/Above Optimal LDL: 110- 129 mg/dLBorderline High LDL: 130-159 mg/dLHigh LDL: 160-189 mg/dLVery High LDL: greater than or equal to 190 mg/dL HDL Cholesterol 43 >40 mg/dL [facility] Comment:Desirable HDL: great er than 40 mg/dL Note: This HDL assay may give artificially low results in patients with liver disease. 12/26/2024 10:3 8 AM EDT 12/26/2024 11:08 AM EDT us Generic External Data Provider LAB BLOOD ORDERAB LES Final Result [facility] [address] [place] [phone] * CT Lung Screening Low dose (12/22/2024 5:11 PM EDT) Anatomical Region Laterality Modality Lung Computed Tomogra phy 12/22/2024 5:11 PM EDT Narrative 12/22/2024 5:13 PM EDT ? [facility] ?[address] ?[place] [address] ? CT Scan Report ? Signed ? Patient: Elio Calles ?MR#: [id number] ?? 20 ? : 1955 ?Acct:[id number] ? Age/Sex: 69 / M ?ADM Date: 04/28/25 ? Loc: HO.CT ? Attending Dr: William Rock MD ? Ordering Physician: William Rock MD ?? Date of Service: 12/22/24 ?? Procedure(s): CT lung screening ?? Accession Number(s): [id number] ? cc: uSsie Park MD; William Rock MD ? Report Number: ?? [id number]: Total DLP = ?? 58.00 mGy-cm ? [...] was provided on smoking cessation. ? Comparison: CT/MA/SR - CT LUNG SCREENING - 12/18/23 10:11 EDT ?? CT/REG/MA/SR - CT CHEST WO IV CON - [...] by Lucy Max MD in OV> ? 12/22/242 ? DD/ 1711 ? TD/TT: 12/22/24 1711 ? Administrative And Program Specialist: ? Procedure Note Donotrohaninterpreter, Image - 12/22/[address] [place] [address] [address] Scan Report Signed Patient: Jerome Calles#: [id number] 20 : 5Acct:[id number] Age/Sex: 69 / MADM Date: 12/22/24 Loc: HO.CT Attending Dr: William Rock MD Ordering Physician: William Rock MD Date of Service: 12/22/24 Procedure(s): CT lung screening Accession Number(s): [id number] cc: Susie Park MD; William Rock MD Report Number: [id number]: Total DLP = 58.00 mGy-cm CLINICAL HISTORY: [...] counseling was provided on smoking cessation. Comparison: CT/MA/SR - CT LUNG SCREENING - 12/18/23 10:[address]/REG/MA/SR - CT CHEST WO IV CON - [...] in OV> 12/22/241711 DD/ 10 TD/TT: 12/22/241710 Administrative And Program Specialist: [facility] External Provider IMG CT PROCEDURES Final Result * (ABNORMAL) POCT HGB A1C (12/11/2024 10:07 AM EDT) Hemoglobin A1C 6.8(A) 4.0 - 6.0 % QC Media Lot # [id number] Lot# Expiration Date Blood 12/11/2024 10:0 7 AM EDT Susie Cintron MD POINT OF CARE TEST EN TER/EDIT ORDERABLES Final Result * (ABNORMAL) POCT Glucose (12/11/2024 10:06 AM EDT) [facility] Glucose Blood, POC 224(A) 60 - 200 mg/dL QC Media Lot # [id number] Lot# Expiration Date , Blood Capillary blood specimen / Unknown 12/11/2024 10:06 AM EDT us Susie Cintron MD POINT OF CARE TEST EN TER/EDIT ORDERABLES Final Result * Cytopath-cell enhanced (11/05/2024 4:21 PM EDT) 11/05/2024 4:21 PM EDT 11/06/2024 7:30 AM EDT Narrative [facility] - 11/06/2024 5:20 PM EDT ----- ------- Name: Elio Calles ? Age/Sex: 69/M ? : 1955 Unit#: [id number] ?? Attend Dr: Ana Langley [facility] ?Re11/05/24 ?Status: DEP REF ? Location: .LAB ?Disch: ? ----- ------- SPEC : [id number] ? RECD: 11/06/24 ? STATUS: ??SOUT ? REQ NUM: [id number] ? JANI: 11/05/24 ? SUBM DR: Ana Langley [facility] ? ENTERED: ??11/06/24 ?SP TYPE: Cytology ? [...] Copies To: ?? Susie Park MD ?? [facility] ?? [address] ?? [place] [address] ?? [phone] ?? Ana Langley ?? [facility] ?? [address] [facility] ?? [place] [address] ?? [phone] ?? [email or web address] ? CONTINUED ON NEXT PAGE ----- ------- Name: Elio Calles ? Age/Sex: 69/M ? : 1955 Unit#: [id number] ?? Attend Dr: Ana Langley ?Re11/05/24 ?Status: DEP REF ? Location: [facility] ?Disch: ? ----- ------- SPEC : [id number] ? RECD: 11/06/24 ? STATUS: ??SOUT ? REQ NUM: [id number] ? JANI: 11/05/24-1 ? SUBM : Ana Langley [facility]- ? ENTERED: ??11/06/24 ?SP TYPE: Cytology ? OTHR : Susie Park MD ? ORDERED: ??Cyto-enhanced/2 ? ----- ------- Signed (signature on file) Jessica Blackwell 11/06/241719 ? ----- ------- ? END OF REPORT ? Generic External Data Provider LAB CYTOLOGY ORDE RABLES Final Result Performing Organization Address [facility] Co de Phone Number [facility] [address] [place] [phone] * Creatinine, Serum (11/05/2024 11:46 AM EDT) Creatinine, Serum 0.96 0.5 - 1.4 mg/dL [facility] Estimated Glomerular Filt Rate >60 [facility] Comment:Chronic Kidney Disea se: Estimated GFR < 60 mL/min/1.27w0Fjuxji Kidney Disease: Estimated GFR < 15 mL/min/1.73m2 11/05/2024 11:4 6 AM EDT 11/05/2024 11:46 AM EDT Generic External Data Provider LAB BLOOD ORDERAB LES Final Result Performing Organization Address [facility] Co de Phone Number [facility] [address] [place] [address] [phone] * BUN (Blood Urea Nitrogen) (11/05/2024 11:46 AM EDT) Urea Nitrogen (BUN) 15 9 - 16 mg/dL [facility] 11/05/2024 11:4 6 AM EDT 11/05/2024 11:46 AM EDT Generic External Data Provider LAB BLOOD ORDERAB LES Final Result Performing Organization Address [facility] Co de Phone Number [facility] [address] [place] [address] [phone] * Hepatitis C Antibody Reflex (03/12/2023 11:45 AM EDT) Hepatitis C Antibody Nonreactive Nonreactive [facility] Comment:Antibodies to HCV no t detected; does not exclude early acuteHCV infection. 03/12/2023 11:4 5 AM EDT 03/12/2023 1:40 PM EDT [facility] External Provider LAB BLO OD ORDERABLES Final Result Performing Organization Address [facility] Co de Phone Number [facility] [address] [place] [address] [phone] * Colonoscopy (04/12/2022 9:53 PM EDT) Historical Provider HEALTH MAINTENANCE Final Result * ALBUMIN, RANDOM [...] URINE ORDERABLES Final Result Performing Organization Address City/[facility] Co de Phone Number [facility] [address] from Last 3 Months or Most Recently Relevant to Health Maintenance Insurance [employer] (HMO D-SNP) [place] MURCIA [id number] Care Teams Hydroelectric Powerplant Supervisor Relationship Specialty Start Date End Date Susie Park MD [address] [place] [phone] PCP - General Family Medicine 07/08/18
--- OUTSIDE RECORDS SUMMARY | 2025-01-15 12:40 | XMS_ITS | Encounter Summary ---
Author Organization [employer] Address [address] [facility] 7t [place] [address] Care Team Providers Care Press Operator Heavy Duty Name Role Phone Susie Park MD Primary Care Provide r Reason for Visit * Reason Comments Med Refill Encounter Details Date Type Department Care Team (Late st Contact Info) Description 01/12/2025 Refill [facility] CH[facility] MED & PEDS [address] [place], [place] [phone] Susie Park MD [address] [place] [address] Social History Tobacco Use Types Packs/Day Years [...] with others, in a hotel, in a senior living, living outside on the street, on a [...] Description 03/12/2025 11:30 AM EDT Office Visit [facility] MEDICINE [address] [place] [address] Susie Park MD [address] [place] [address] documented as of this encounter Visit Diagnoses Not on filedocumented in this encounter Additional Health Concerns Assessment Noted Time PHQ-9 Depression Total Score: 9 04/14/20 24 10:39 AM EDT documented as of this encounter Care Teams Press Operator Heavy Duty Relationship Specialty Start Date End Date Susie Park MD [address] [place], [place] [phone] PCP - General Family Medicine 07/08/18 documented as of this encounter
--- OUTSIDE RECORDS SUMMARY | 2025-01-15 12:40 | XMS_ITS | Encounter Summary ---
Author Organization [employer] Address [address] [facility] 7t [place] [address] Care Team Providers Care Maintenance Inspector Name Role Phone Susie Park MD Primary Care Provide r Encounter Details Date Type Department Care Team ([facility] Contact Info) Description 08/30/2022 Abstract [facility] MEDICINE [address] [place] [address] [phone] Susie Park MD [address] [place] [address] [phone] Social History Tobacco Use Types Packs/Day Years [...] Upcoming Encounters Date Type Department Care Team ([facility] Contact Info) Description 03/12/2025 11:30 AM EDT Office Visit [facility] MEDICINE [address] [place] [address] [phone] Susie Park MD [address] [place], [place] [phone] documented as of this encounter Visit Diagnoses Not on filedocumented in this encounter Additional Health Concerns Assessment Noted Time PHQ-9 Depression Total Score: 17 022 9:43 AM EST documented as of this encounter Care Teams Maintenance Inspector Relationship Specialty Start Date End Date Susie Park MD [address] [place] [address] PCP - General Family Medicine 07/08/18 documented as of this encounter
--- OUTSIDE RECORDS SUMMARY | 2025-01-15 12:40 | XMS_ITS | Encounter Summary ---
Author Organization [employer] Address [address] [facility] [address] [place] [address] Care Team Providers Care Typesetting Machine Tender Name Role Phone Susie Park MD Primary Care Provide r Reason for Visit * Reason Onset Date Comments Nurse Triage 10/18/2023 Encounter Details Date Type Department Care Team ([facility] st Contact Info) Description 10/18/2023 Telephone [facility] MEDICINE [address] [place], [place] [phone] Susie Park MD [address] [place], [place] [phone] Nurse Triage Social History Tobacco Use Types [...] and daughter advised of disposition, agree to [facility] now for exam due to CP [...] Description 03/12/2025 11:30 AM EDT Office Visit [facility] MEDICINE [address] [place] [address] Susie Park MD [address] [place] [address] documented as of this encounter Visit Diagnoses Not on filedocumented in this encounter Additional Health Concerns Assessment Noted Time PHQ-9 Depression Total Score: 8 10/24/19 23 11:22 AM EST documented as of this encounter Care Teams Typesetting Machine Tender Relationship Specialty Start Date End Date Susie Park MD [address] [place] [address] PCP - General Family Medicine 07/08/18 documented as of this encounter
--- OUTSIDE RECORDS SUMMARY | 2025-01-15 12:40 | XMS_ITS | Encounter Summary ---
Author Organization [employer] Address [address] [facility] 7t [place] [address] Care Team Providers Care Pipe Tester Name Role Phone Susie Park MD Primary Care Provide r Reason for Visit * Reason Comments Med Refill Encounter Details Date Type Department Care Team ([facility] st Contact Info) Description 09/26/2023 Refill [facility] MEDICINE [address] [place], [place] [phone] Susie Park MD [address] [place], [place] [phone] Coronary artery disease involving redding coronary artery of redding heart with angina pectoris (CMS/HCC) Social History [...] EDT Office Visit [facility] MEDICINE [address] [place] [address] Susie Park MD [address] [place] [address] documented as of this encounter Visit Diagnoses Diagnosis Coronary artery disease involving redding coronary artery of redding heart with angina pectoris (CMS/HCC) documented in this encounter Additional Health Concerns Assessment Noted Time PHQ-9 Depression Total Score: 8 10/24/19 23 11:22 AM EST documented as of this encounter Care Teams Pipe Tester Relationship Specialty Start Date End Date Susie Park MD [address] [place] [address] PCP - General Family Medicine 07/08/18 documented as of this encounter
--- OUTSIDE RECORDS SUMMARY | 2025-01-15 12:40 | XMS_ITS | Encounter Summary ---
Author Organization [employer] Address [address] [facility] [address] [place] [address] Care Team Providers Care Mail Caller Name Role Phone Susie Park MD Primary Care Provide r Reason for Visit * Reason Comments Med Refill Encounter Details Date Type Department Care Team (Late st Contact Info) Description 10/15/2024 Refill [facility] CHC MED & PEDS [address] [place], [place] [phone] Susie Park MD [address] [place] [address] Social History Tobacco Use Types Packs/Day Years [...] Description 03/12/2025 11:30 AM EDT Office Visit [facility] MEDICINE [address] [place] [address] Susie Park MD [address] [place] [address] documented as of this encounter Visit Diagnoses Not on filedocumented in this encounter Additional Health Concerns Assessment Noted Time PHQ-9 Depression Total Score: 9 04/14/20 24 10:39 AM EDT documented as of this encounter Care Teams Mail Caller Relationship Specialty Start Date End Date Susie Park MD [address] [place], [place] [phone] PCP - General Family Medicine 07/08/18 documented as of this encounter
--- NOTE | 2025-01-15 13:02 | MHC.OFFVIS ---
Vital Signs 01/15/25 13:03 Height 5 ft 6 in Weight 174 lb 9.698 oz BMI 28.2 BP 124/60 Blood Pressure Location Lt brachial Position Sitting Pulse 80 Pulse Source Monitor Intake Visit Reasons: 6m follow up Javascript Developer Required: No Allergies Penicillins Allergy (Mild, Verified 01/15/25 13:06) RASH ciprofloxacin [From Cipro] Allergy (Unknown, Verified 01/15/25 13:06) RASH Medication List - Last Reconciled 01/15/25 by HUNTER Christensen acetaminophen ER 650 mg PO Q8H albuterol sulfate 90 mcg/actuation (Ventolin HFA) 2 puffs inhalation Q6H PRN amlodipine 2.5 mg PO DAILY 90 days Anoro Ellipta 62.5-25 mcg/actuation (umeclidinium-vilanterol) 1 ea PO DAILY NS aspirin (Adult Low Dose Aspirin) 81 mg PO DAILY atorvastatin 80 mg PO DAILY blood sugar diagnostic (FreeStyle Lite Strips) As directed bupropion HCl XL 150 mg PO DAILY clonazepam 1 mg PO DAILY docusate sodium 100 mg PO BID dulaglutide (Trulicity) 1 ea subcut QWEEK ezetimibe 10 mg PO DAILY insulin glargine (Lantus Solostar U-100 Insulin) 50 units subcut QPM ipratropium-albuterol 0.5 mg-3 mg(2.5 mg base)/3 mL 3 mL inhalation Q4-6H PRN 30 days isosorbide mononitrate ER 120 mg PO QAM lancets (FreeStyle Lancets) As directed loratadine 10 mg PO DAILY losartan 25 mg PO DAILY mesalamine ER 1.5 grams (4 x 0.375 gram) PO QAM metoprolol succinate ER 50 mg PO DAILY mirabegron ER (Myrbetriq) 25 mg PO DAILY 30 days multivitamin with folic acid 400 mcg (Daily-Tiana (with folic acid)) tabs PO naproxen 250 mg PO BID PRN nebulizer and compressor As directed quetiapine 25 mg PO TID ranolazine ER 1,000 mg PO BID 90 days Repatha SureClick (evolocumab) 140 mg subcut Q2W NS theophylline ER 400 mg PO DAILY HPI HPI 6m follow up: Details: Elio is a 69-year-old male with past medical history of hypertension, hyperlipidemia, diabetes, smoking, coronary artery disease status post 3 vessel coronary artery bypass grafting 09/2017 with recurrent chest discomfort, occluded SVG to RCA then with RCA stenting early 2019. Cardiac catheterization for shortness of breath and chest discomfort 04/2020 with angioplasty of severe in stent restenosis of RCA.? He did feel better for 2 months then started again with chest discomfort which was been managed medically.? He has been on triple antianginal agents. He underwent repeat cardiac cath 12/28/20 showing ISR of RCA mid and distal stents and Nathaniel placed.? Since that time he has had stable angina when walking up hills. Today he reports that he has been been doing well since his last visit. He says he has not been having much chest discomfort. He says only 2-3 times since his last visit. He will get it mostly when walking. He does not get chest discomfort at rest. He does have nitroglycerin sublingual that he can take if needed. He still walks frequently and long distances around the city. No presyncope, syncope, falls. No concerning shortness of breath, PND, orthopnea or edema. He says he usually takes his medication reasons as directed but sometimes they make him lightheaded. At that time he will not take any meds for 1-2 days till his symptoms resolve. Then he will go back to taking them. He says he does this about 2-3 times per month. He is still smoking 7-8 cigarettes per day and drinking 1-2 coffees per day. [facility] Medical History Latent tuberculosis Abnormal CT scan, gastrointestinal tract Memory difficulties On anticoagulant therapy On beta russ at home Angina of effort HLD (hyperlipidemia) HTN (hypertension) COPD (chronic obstructive pulmonary disease) Arthritis Diabetes mellitus, type 2 Coronary artery disease Dizziness Peripheral vascular disease Surgical History Hx of colonoscopy S/P cardiac catheterization (~12/2020) S/P cardiac cath (~04/2020) Stented coronary artery S/P cardiac cath (~08/2019) S/P CABG x 3 (~09/2018) H/O coronary artery bypass surgery Social History Household Members: Children Housing: House Alcohol intake: current Alcohol intake frequency: holidays/special occasions only Patient Tobacco Use Status: Current everyday Tobacco user Tobacco use type: Cigarette Cigarette Packs Per Day: 1 Cigarettes Per Day: 8 Advance Directives Date on File: 04/24/22 service: No Current occupational status: disabled Review of Systems Const All systems reviewed & are unremarkable except as noted in HPI and below ENT Denies dizziness Card Denies chest pain, Denies chest pain at rest, Reports chest pain with activity, Denies rapid heart rate, Denies pedal edema, Denies edema, Denies leg edema, Denies lightheadedness, Denies palpitations, Denies dyspnea, Denies dyspnea on exertion and Denies orthopnea Resp Denies cough, Denies dyspnea and Denies dyspnea on exertion GI Denies hematochezia and Denies change in stool character Musc Denies abnormal gait, Denies limited range of motion, Denies muscle cramps, Denies muscle weakness, Denies numbness, Denies radiating pain into limb, Denies stiffness and Denies tingling Neuro Denies abnormal gait, Denies dizziness, Denies numbness and Denies tingling Endo Denies palpitations Physical Exam Vital Signs: Last Vital Signs Pulse 80 01/15/25 13:03 BP 124/60 01/15/25 13:03 BMI result Body Mass Index 28.2 Const General: cooperative, healthy appearing, comfortable and no acute distress Orientation/consciousness: patient oriented x3 Neck Neck: Yes normal visual inspection Resp Effort & Inspection: normal respiratory effort Auscultation: clear to auscultation bilaterally, no rales, no rhonchi and no wheezes Cardio Rate: regular rate Rhythm: regular rhythm Heart sounds: S1 normal heart sound present, S2 normal heart sound present, no murmurs and no rubs Neuro General: patient oriented x3 Extrem General: Yes normal to inspection, No no pedal edema and No calf tenderness Psych Appearance: grossly normal Mental Status: mental status grossly normal Speech and movement: Normal speech and movement present Office Procedures EKG Details: Today, read by me, normal sinus rhythm with sinus arrhythmia, right atrial enlargement, T-wave abnormality inferior lateral leads, rate 80, QTC 429 milliseconds, artifact V2 [id number], Complete Assessment & Plan Assessment & Plan (1) Angina of effort: Code(s): I20.8 - Other forms of angina pectoris Category: Medical Plan: Hx CAD, prior CABG, ALEMAN to LAD patent, known occlusion of OM and RCA graphs. He continues to reports mild stable angina, brought on by walking up hills. Last nuclear stress test on 06/30/2022 showing basal inferior infarct with minimal ischemia, EF 61%. Last echocardiogram was done 06/26/2022 showing EF 60%, basal inferior and inferior lateral akinetic, severe decrease in the RV systolic function. No change from prior echo 11/24/2020. He is on amlodipine 2.5 mg daily, isosorbide 120 mg daily, metoprolol 50 mg b.i.d., Ranexa 1000 mg b.i.d.. Admits to holding his medications at times due to reports of lightheadedness. He says he is unsure which med is causing it so he does not take any of them at least 2-3 days per month. Spent time reviewing the need for medication compliance. His persistent angina with exertion is likely related to med noncompliance. Continue antianginals, continue aspirin 81 mg indefinitely. Continue high-dose atorvastatin and Zetia. Can use nitroglycerin sublingual if needed for chest discomfort. Emergency care if needed for symptoms. Card f/u 6 months, sooner if needed. (2) Noncompliance with medication regimen: Code(s): Z91.148 - Patient's other noncompliance with medication regimen for other reason Category: Medical Plan: Discussed with him again in detail. (3) S/P cardiac catheterization: Onset Date: ~12/2020 Comment: 12/28/2020 mid RCA 95% stenosis, ISR, culprit lesion, drug-eluting stent placed, distal RCA 90% stenosis, JONNY placed patent ALEMAN to LAD, known occluded graft to OM and RCA, severe AV groove circumflex stenosis which is small to moderate size territory Code(s): Z98.890 - Other specified postprocedural states Category: Surgical Plan: Most recent catheterization 12/28/2020 (4) Coronary artery disease: Comment: Foll'd by Dr. Gaytan. Hx CAD, prior CABG, known occluded SVG graft to RCA, PCI to RCA with last cardiac cath on 12/28/20 showing severe ISR to mid and distal RCA stents and JONNY's were placed. ALEMAN to LAD was patent, known occlusion of OM and RCA graphs. Code(s): I25.10 - Atherosclerotic heart disease of [place] coronary artery without angina pectoris Category: Medical Plan: As above (5) HTN (hypertension): Code(s): I10 - Essential (primary) hypertension Category: Medical Plan: Blood pressure goal less than 130/80. Good at present time. No med changes (6) HLD (hyperlipidemia): Code(s): E78.5 - Hyperlipidemia, unspecified Category: Medical Plan: [place] LDL goal less than 70. . He was previously on Repatha, atorvastatin and zetia with very good cholesterol control. More recently he has been only atorvastatin and Zetia and does report med noncompliance. Labs done 12/26/2024 showed LDL 138. He was recently restarted on Repatha and tell me he has had only 1 injection so far. Will plan for a fasting lipid profile in 6 weeks. Patient informed. (7) Stented coronary artery: Code(s): Z95.5 - Presence of coronary angioplasty implant and graft Category: Surgical Plan: As above (8) Abnormal EKG: Code(s): R94.31 - Abnormal electrocardiogram [ECG] [EKG] Category: Medical Plan: Mild T-wave inversions as noted on EKGs -stable. No new symptoms Plan Time spent on chart review, documentation, interview and assessment I discussed the importance of medication adherence for managing angina and hyperlipidemia, emphasizing the role of Repatha in reducing cholesterol levels. We addressed the side effects impacting the patient's medicine adherence and strategized identifying culprits. The benefits of goal-directed medications were outlined, alongside the potential adverse effects. I advised lowering smoking to manage stress and reduce cardiac risk, especially during fits of anger. We discussed the utility of a life alert system for safety. Follow-up with Dr. Gaytan was planned to address ongoing concerns, with life alert and monitoring for chest pain emphasized should symptoms escalate. All recommendations were understood and consent provided by the patient. Orders: Orders Lipid Panel Today E78.5 - Hyperlipidemia, unspecified Patient Instructions: - Continue medication as prescribed, specifically the Repatha injections. - Contact if experiencing worsening chest pain. - Reduce smoking, aiming for three cigarettes daily. - Follow medication schedule and report any adverse side effects. - Use life alert when needed. - Avoid excessive coffee to prevent heart palpitations. - Schedule follow-up with Dr. Gaytan in six months. - Maintain exercise routine but monitor for symptoms. - Fast before scheduled cholesterol test in one month. Patient was informed and verbally consented to the use of an ambient scribe for clinic note documentation during this visit. Coding Level of Care Code Est Pt Level 4 (63152) Complex EM visit Add On G2211 Diagnoses Angina of effort I20.8 Noncompliance with medication regimen Z91.148 S/P cardiac catheterization Z98.890 Coronary artery disease I25.10 HTN (hypertension) I10 HLD (hyperlipidemia) E78.5 Stented coronary artery Z95.5 Abnormal EKG R94.31 CPT Codes EKG - CPT: 94539-Hmnctabypzjjshatj, Complete ([id number]) Time Spent (min) 30
[2025-01-15 13:03] VITALS: BP 124/60; PULSE 80; BMI 28.2
== END 2025-01-15 13:34 | disposition home or self-care (01) ==
LOC: HO.HCS 12:37
PROVIDERS: PCP Internal Medicine; Visit Provider Nurse Practitioner Family
DX: I11.9 Hypertensive heart disease without heart failure (principal); I25.118 Atherosclerotic heart disease of native coronary artery with other forms of angina pectoris; Z91.148 Patient's other noncompliance with medication regimen for other reason; Z98.890 Other specified postprocedural states; Z95.5 Presence of coronary angioplasty implant and graft; E78.5 Hyperlipidemia, unspecified; R94.31 Abnormal electrocardiogram [ECG] [EKG]
CPT/HCPCS: 93010; 99214; G2211

== ENCOUNTER → 2025-01-15 12:37 | Outpatient (BNVA) | payer OTHER, SELFPAY | PROVIDERS: PCP Internal Medicine; Visit Provider Nurse Practitioner Family | DX: I25.118 Atherosclerotic heart disease of native coronary artery with other forms of angina pectoris (principal); I10 Essential (primary) hypertension; R94.31 Abnormal electrocardiogram [ECG] [EKG]; E78.5 Hyperlipidemia, unspecified; I51.7 Cardiomegaly; Z95.5 Presence of coronary angioplasty implant and graft; Z91.148 Patient's other noncompliance with medication regimen for other reason; Z98.890 Other specified postprocedural states | CPT/HCPCS: 93005; 99212 ==

== ENCOUNTER 2025-01-26 10:02 | Outpatient (REF) | payer OTHER, SELFPAY ==
--- NOTE | ~2025-01-26 | CT_ITS ---
EXAMINATION: CT ABDOMEN PELVIS UROGRAPHY WITHOUT THEN WITH IV CONTRAST HISTORY: R31.29 - Other microscopic hematuria COMPARISON: Patent is made with the prior examination dated 06/27/2023. TECHNIQUE: CT scan of the abdomen and pelvis was performed before and after the intravenous administration of 85 mL Omnipaque 350. Postcontrast images were obtained using a split bolus technique. Coronal and sagittal reformatted images were generated and reviewed. Oral contrast material was not administered per department protocol. This CT exam was performed with one or more of the following dose reduction techniques: automated exposure control, adjustment of the mA and/or kV according to patient size, use of iterative reconstruction technique. DLP: 900 mGy-cm ABDOMEN: LOWER CHEST: Tiny subpleural nodules are again seen at the lung bases. There is no pleural effusion. CARDIOVASCULATURE: The heart is normal in size. There is no pericardial effusion. LIVER: The liver is normal in size and contour. No liver mass is identified. The hepatic and portal veins are patent. GALLBLADDER / BILE DUCTS: There is focal thickening of the gallbladder fundus without change. There is no intra or extrahepatic biliary ductal dilatation. SPLEEN: The spleen is normal in size. No focal splenic lesion is identified. PANCREAS: The pancreas is unremarkable in appearance. ADRENAL GLANDS: Within normal limits. KIDNEYS/RETROPERITONEUM: No renal or ureteral calculi are identified. There is no hydronephrosis or hydroureter. There is a 1.6 cm parapelvic cyst at the lower pole of the left kidney. The intrarenal collecting systems are unremarkable in appearance. The ureters are normal in caliber. No ureteral filling defects are identified. LYMPH NODES: There are scattered subcentimeter retroperitoneal lymph nodes are not enlarged by CT criteria. VASCULATURE: The abdominal aorta demonstrates atherosclerotic calcification, but is normal in caliber. MESENTERY/PERITONEUM: No free fluid. No masses. There is no free intraperitoneal gas. STOMACH: The stomach is distended with debris. SMALL BOWEL: The small bowel is normal in caliber. COLON: The colon is unremarkable. APPENDIX: The appendix is not seen, however no inflammatory changes are seen adjacent to the cecum . URINARY BLADDER/PELVIC ORGANS: The urinary bladder is unremarkable. The prostate is normal in size. BONES / SOFT TISSUES: No suspicious bony or soft tissue abnormalities. CT/CT urogram IMPRESSION: 1. 1.6 cm left renal parapelvic cysts. Otherwise unremarkable CT urogram. 2. Focal thickening of the fundus of the gallbladder. Ultrasound correlation is suggested. Electronically signed by: Gene Houston MD 01/26/2025 01:49 PM EDT
[2025-01-26] MEDS: iohexoL 350 MG/ML 100 ML INFUS..BTL 85 ML IV (10:50)
--- OUTSIDE RECORDS SUMMARY | 2025-01-26 10:56 | XMS_ITS | Clinical Summary ---
Author Organization [employer] Address [address] [place] [address] Care Team Providers Care Senior J2Ee Developer Name Role Phone Susie Park MD Primary [...] MG SL tabletIndication s:Coronary artery disease involving [place] coronary artery of [place] heart with angina pectoris (CMS/HCC) Place 1 [...] MG EC tabletIndication s:Coronary artery disease involving [place] coronary artery of [place] heart with angina pectoris ([facility]/H[facility]) TAKE 1 TABLET BY MOUTH EVERY NIGHT [...] complication, with long-term current use of insulin ([facility]) TEST BLOOD SUGAR TWICE A DAY 100 each 11 025 Active insulin pen needle (UltiCare Micro Pen [place]) 32G x 4 mm misc USE DAILY [...] 2 times daily. 60 g 025 Active calcipotriene (Dovonex) 0.005 % [...] (08/31/2022 9:40 PM EST): Patient to call [facility] to schedule abd US, a [...] knee 08/22/2022 Coronary artery disease invo lving [place] coronary artery of [place] heart with angina pectoris 08/22/2022 Assessment & [...] Type Department Care Team Description 01/12/2025 Refill [facility] [address] [place] [address] Susie Park MD 01/08/2025 Refill [facility] [address] [place] [address] Susie Park MD 01/02/2025 Refill [facility] [address] [place] [address] Susie Park MD Psoriasis vulgaris 12/30/2024 Telephone [facility] MEDICINE [address] [place] [phone] Susie Park MD [facility] incoming call 12/26/2024 10:00 AM EDT Office Visit [facility] MEDICINE [address] [place] [phone] Chad Mello MD Psoriasis vulgaris (Primary Dx); LTBI (latent tuberculosis infection) 12/26/2024 Telephone [facility] MEDICINE [address] [place] [phone] Susie Park MD Medication Question 12/26/2024 Orders Only GENERIC EXTERNAL DATA DEPARTMENT Provider, Generic External Data 12/26/2024 Travel 12/22/2024 Orders Only [facility] External Provider, [facility] 12/11/2024 10:00 AM EDT Office Visit [facility] MEDICINE [address] [place] [phone] Suise Park MD Type 2 diabetes mellitus with other specified complication, with long-term current use of insulin ([facility]) (Primary Dx); HTN (hypertension), benign; Severe persistent asthma without complication; Mood disorder ([facility]); Coronary artery disease involving [place] coronary artery of [place] heart with angina pectoris ([facility]); Smoker 12/11/2024 Travel 12/10/2024 Refill [facility] PEDS [address] [place] [address] Susie Park MD Intrinsic eczema; Primary osteoarthritis of both knees 12/04/2024 Telephone [facility] MEDICINE [address] [place] [phone] Susie Park MD Chart Prep 12/03/2024 Telephone [facility]INE [address] [place] [phone] Susie Park MD 12/03/2024 Telephone [facility]ICINE [address] [place] [phone] Susie Park MD Appointment Request 11/25/2024 Refill [facility] [address], [place] [phone] Susie Park MD 11/11/2024 Refill [facility] & PEDS [address], [place] [phone] Susie Park MD Type 2 diabetes mellitus with other specified complication, with long-term current use of insulin ([facility]); Primary osteoarthritis of both knees 11/05/2024 [...] Description 03/12/2025 11:30 AM EDT Office Visit [facility] MEDICINE [address] [place] [address] Susie Park MD [address] [place] [address] Health Maintenance Due Date Last Done Comments CT Colonography 1955 FIT DNA/Cologuard 1955 FIT 1955 FOBT 1955 Sigmoidoscopy 1955 RSV Patients and Patients Aged 60 years or older (1 - Risk 60-74 years 1-dose series) 2015 Diabetes: Urine Protein Screening 09/15/2021 09/15/2020 Zoster Vaccines (2 of 2) 04/16/2023 02/19/2023 Eye Exam 05/15/2023 05/15/2022 Diabetes: Foot Exam 12/09/2023 12/08/2022, 3 Depression Monitoring 10/15/2024 04/14/2024, 024 COVID-19 Vaccine ( season) 2024 05/16/2024, 10/24/2022, 07/15/2021, Additional history exists Influenza Vaccine (Season Ended) 2025 04/23/2012, 04/21/2011 Diabetes: Hemoglobin A1C 06/12/2025 025, 07/15/2024, 04/14/2024, [...] * (ABNORMAL) T-SPOT??.TB (12/26/2024 10:38 AM EDT) [facility] T Spot TB Positive( A) Negative [facility] Comment: Diagnosing or excluding tuberculosis [...] as aquantitative test. TS PANEL A 40 [facility] TS PANEL B 8 [facility] Negative Control Passed [facility] Positive Control Passed [facility] Comment:For additional infor mation, please refer tohttp://education.[employer]/faq/BZX524(This link is being provided for informational/educational purposes only.)REPORT COMMENT:REC'D AT [facility] TEST WAS PERFORMED AT:[employer] [id number] [place] [id number] FUNES MD,PHD 12/26/2024 10:3 8 AM EDT 12/26/2024 11:08 AM EDT us Chad Mello MD LAB BLOOD ORDERABLES Final Re sult [facility] [address] [place] [phone] * (ABNORMAL) Lipid Panel, Standard (12/26/2024 10:38 AM EDT) Triglycerides 124 <150 mg/dL [facility] Comment:Desirable Triglyceri de: less than 150 mg/dLBorderline High Triglyceride 150-199 mg/dLHigh Triglyceride: 200-499 mg/dLVery High Triglyceride: greater than or equal to 5OO mg/dL Cholesterol 205(H) <200 mg/dL [facility] Comment:Desirable Cholestero l: less than 200 mg/dLBorderline High Cholesterol: 200-239 mg/dLHigh Cholesterol: greater than 239 mg/dL LDL Cholesterol Calculated 138(H) <100 mg/dL [facility] Comment:Desirable LDL: less than 100 mg/dLNear Optimal/Above Optimal LDL: 110- 129 mg/dLBorderline High LDL: 130-159 mg/dLHigh LDL: 160-189 mg/dLVery High LDL: greater than or equal to 190 mg/dL HDL Cholesterol 43 >40 mg/dL [facility] Comment:Desirable HDL: great er than 40 mg/dL Note: This HDL assay may give artificially low results in patients with liver disease. 12/26/2024 10:3 8 AM EDT 12/26/2024 11:08 AM EDT us Generic External Data Provider LAB BLOOD ORDERAB LES Final Result [facility] [address] [place] [phone] * CT Lung Screening Low dose (12/22/2024 5:11 PM EDT) Anatomical Region Laterality Modality Lung Computed Tomogra phy 12/22/2024 5:11 PM EDT Narrative 12/22/2024 5:13 PM EDT ? [facility] ?[address] ?[place] [address] ? CT Scan Report ? Signed ? Patient: Elio Calles ?MR#: [id number] ?? 20 ? : 1955 ?Acct:[id number] ? Age/Sex: 69 / M ?ADM Date: 12/22/24 ? Loc: HO.CT ? Attending Dr: William Rock MD ? Ordering Physician: William Rock MD ?? Date of Service: 12/22/24 ?? Procedure(s): CT lung screening ?? Accession Number(s): [id number] ? cc: Susie Park MD; William Rock MD ? Report Number: ?? [id number]: Total DLP = ?? 58.00 mGy-cm ? [...] was provided on smoking cessation. ? Comparison: CT/PA/SR - CT LUNG SCREENING - 12/18/23 10:11 EDT ?? CT/REG/PA/SR - CT CHEST WO IV CON - [...] ?? on 12/22/2024 17:11:18 ? Dictated By: ?Luyc Max MD ? Signed By: ?<Electronically signed by Lucy Max MD in OV> ? 12/22/241711 ? DD/ 10 ? TD/TT: 12/22/241710 ? Janitorial Assistant: ? Procedure Note Donotuseinterpreter, Image - 12/22/[address] [address] [address] Scan Report Signed Patient: Jerome Calles#: [id number] 20 : 5Acct:[id number] Age/Sex: 69 / MADM Date: 12/22/24 Loc: HO.CT Attending Dr: William Rock MD Ordering Physician: William Rock MD Date of Service: 12/22/24 Procedure(s): CT lung screening Accession Number(s): [id number] cc: Susie Park MD; William Rock MD Report Number: [id number]: Total DLP = 58.00 mGy-cm CLINICAL HISTORY: [...] counseling was provided on smoking cessation. Comparison: CT/PA/SR - CT LUNG SCREENING - 12/18/23 10:[address]/REG/PA/SR - CT CHEST WO IV CON - [...] MD on 12/22/2024 17:11:18 Dictated By: Lucy aMx MD Signed By: <Electronically signed by Lucy Max MD in OV> 12/22/241711 DD/ 10 TD/TT: 12/22/241710 Janitorial Assistant: [facility] External Provider IMG CT PROCEDURES Final [...] 4:21 PM EDT 11/06/2024 7:30 AM EDT [facility] - 11/06/2024 5:20 PM EDT ----- ------- Name: Elio Calles ? Age/Sex: 69/M ? : 1955 Unit#: [id number] ?? Attend Dr: Ana Langley [facility] ?Re11/05/24 ?Status: DEP REF ? Location: .LAB ?Disch: ? ----- ------- SPEC : [id number] ? RECD: 11/06/24-729 ? STATUS: ??SOUT ? REQ NUM: [id number] ? JANI: 11/05/24-1621 ? SUBM DR: Ana Langley WORKERS COMPENSATION LEGAL SECRETARY-BC ? ENTERED: ??11/06/24-828 ?SP TYPE: Cytology ? [...] Copies To: ?? Susie Park MD ?? [facility] ?? [address] ?? [place] ?? [phone] ?? Ana Langley WORKERS COMPENSATION LEGAL SECRETARY-BC ?? [facility] ?? [address] [place] [address] [address] ?? [place], [place] ?? [phone] ?? [email or web address] ? CONTINUED ON NEXT PAGE ----- ------- Name: Elio Calles ? Age/Sex: 69/M ? : 1955 Unit#: [id number] ?? Attend Dr: Ana Langley ?Re11/05/24 ?Status: DEP REF ? Location: HO.LAB ?Disch: ? ----- ------- SPEC : [id number] ? RECD: 11/06/24 ? STATUS: ??SOUT ? REQ NUM: [id number] ? JANI: 11/05/24-1620 ? SUBM DR: Ana Langley ? ENTERED: ??11/06/24-828 ?SP TYPE: Cytology ? OTHR : Susie Park MD ? ORDERED: ??Cyto-enhanced/2 ? ----- ------- Signed (signature on file) Jessica Rishi 11/06/241719 ? ----- ------- ? END OF REPORT ? us Generic External Data Provider LAB CYTOLOGY AMIRAH CLAY Final Result [facility] [address] [place] [address] [phone] * Creatinine, Serum (11/05/2024 11:46 AM EDT) Creatinine, Serum 0.96 0.5 - 1.4 mg/dL [facility] Estimated Glomerular Filt Rate >60 [facility] Comment:Chronic Kidney Disea se: Estimated GFR < 60 mL/min/1.53r1Ejijfd Kidney Disease: Estimated GFR < 15 mL/min/1.73m2 11/05/2024 11:4 6 AM EDT 11/05/2024 11:46 AM EDT Generic External Data Provider LAB BLOOD ORDERAB LES Final Result Performing Organization Address [facility]/ZIP Co de Phone Number [facility] [address] [place] [address] [phone] * BUN (Blood Urea Nitrogen) (11/05/2024 11:46 AM EDT) Urea Nitrogen (BUN) 15 9 - 16 mg/dL [facility] 11/05/2024 11:4 6 AM EDT 11/05/2024 11:46 AM EDT Generic External Data Provider LAB BLOOD ORDERAB LES Final Result Performing Organization Address [facility] Co de Phone Number [facility] [address] [place] [phone] * Hepatitis C Antibody Reflex (03/12/2023 11:45 AM EDT) Hepatitis C Antibody Nonreactive Nonreactive [facility] Comment:Antibodies to HCV no t detected; does not exclude early acuteHCV infection. 03/12/2023 11:4 5 AM EDT 03/12/2023 1:40 PM EDT [facility] External Provider LAB BLO OD ORDERABLES Final Result Performing Organization Address [facility] Co de Phone Number [facility] [address] [place] [address] [phone] * Hm Colonoscopy (04/12/2022 9:53 PM [...] Cintron MD LAB URINE ORDERABLES Final Result [facility] [address] from Last 3 Months or Most Recently Relevant to Health Maintenance Insurance [address] [employer] [id number] [place] [id number] [facility] [employer] OPT[employer] (O D-SNP) [place] MURCIA [id number] Care Teams Senior J2Ee Developer Relationship Specialty Start Date End Date Susie Park MD [address] [place] [phone] PCP - General Family Medicine 07/08/18
[2025-01-26 11:41] LABS: Creatinine POC 1.2 mg/dL (0.5-1.4); GFR POC > 60
== END 2025-01-26 10:03 | disposition home or self-care (01) ==
LOC: HO.CT 10:02
PROVIDERS: PCP Internal Medicine; Visit Provider Nurse Practitioner Family
DX: R31.29 Other microscopic hematuria (principal); Z87.891 Personal history of nicotine dependence
CPT/HCPCS: 74178; 82565; Q9967

== ENCOUNTER → 2025-01-26 10:05 | Outpatient (BNV) | payer OTHER, SELFPAY | PROVIDERS: PCP Internal Medicine; Visit Provider Radiology Diagnostic Radiology | DX: N28.1 Cyst of kidney, acquired (principal) | CPT/HCPCS: 74178 ==

== ENCOUNTER 2025-04-28 11:30 | Outpatient (REF) | payer OTHER, SELFPAY | END 2025-04-28 11:31 | disposition home or self-care (01) | LOC: HO.LAB 11:30 | PROVIDERS: PCP Internal Medicine; Visit Provider Nurse Practitioner Family | DX: R31.29 Other microscopic hematuria (principal); R89.6 Abnormal cytological findings in specimens from other organs, systems and tissues; N30.11 Interstitial cystitis (chronic) with hematuria; R35.1 Nocturia; N28.1 Cyst of kidney, acquired; E11.9 Type 2 diabetes mellitus without complications; N32.81 Overactive bladder; F17.210 Nicotine dependence, cigarettes, uncomplicated; R39.15 Urgency of urination; Z79.85 Long-term (current) use of injectable non-insulin antidiabetic drugs; Z79.4 Long term (current) use of insulin | CPT/HCPCS: 81003; 88112; 99212 ==

== ENCOUNTER 2025-04-28 11:30 | Outpatient (AMB) | payer OTHER, SELFPAY ==
--- NOTE | 2025-04-28 11:40 | MHC.OFFVIS ---
Intake Visit Reasons: follow up/CT/labs Intake Note: Patient is present for CT/LABS Urology Medication:MIRABEGRON Antibiotic Allergy:PENICILLINS,CIPROFLOXACIN Blood Thinner:ASPIRIN Fish Frog Or Oyster Farmer Required: No Allergies Penicillins Allergy (Mild, Verified 04/28/25 13:12) RASH ciprofloxacin (From Cipro) Allergy (Unknown, Verified 04/28/25 13:12) RASH Medication List - Last Reconciled 04/28/25 by KISHORE Murray acetaminophen ER 650 mg PO Q8H albuterol sulfate 90 mcg/actuation (Ventolin HFA) 2 puffs inhalation Q6H PRN amlodipine 2.5 mg PO DAILY 90 days Anoro Ellipta 62.5-25 mcg/actuation (umeclidinium-vilanterol) 1 ea PO DAILY NS aspirin (Adult Low Dose Aspirin) 81 mg PO DAILY atorvastatin 80 mg PO DAILY blood sugar diagnostic (FreeStyle Lite Strips) As directed bupropion HCl XL 150 mg PO DAILY clonazepam 1 mg PO DAILY docusate sodium 100 mg PO BID dulaglutide (Trulicity) 1 ea subcut QWEEK ezetimibe 10 mg PO DAILY insulin glargine (Lantus Solostar U-100 Insulin) 50 units subcut QPM ipratropium-albuterol 0.5 mg-3 mg(2.5 mg base)/3 mL 3 mL inhalation Q4-6H PRN isosorbide mononitrate ER 120 mg PO QAM lancets (FreeStyle Lancets) As directed loratadine 10 mg PO DAILY losartan 25 mg PO DAILY mesalamine ER 1.5 grams (4 x 0.375 gram) PO QAM metoprolol succinate ER 50 mg PO DAILY mirabegron ER (Myrbetriq) 50 mg PO DAILY 90 days multivitamin with folic acid 400 mcg (Daily-Tiana (with folic acid)) tabs PO naproxen 250 mg PO BID PRN nebulizer and compressor As directed quetiapine 25 mg PO TID ranolazine ER 1,000 mg PO BID 90 days Repatha SureClick (evolocumab) 140 mg subcut Q2W NS theophylline ER 400 mg PO DAILY HPI Comments Details: Elio is a 70-year-old male patient of Dr.?Barciona Cintron. He has a past medical history of memory difficulties, hyperlipidemia, hypertension, COPD, arthritis, type 2 diabetes, coronary artery disease, and peripheral vascular disease. He presents to the office today for follow-up of his lower urinary tract symptoms, microscopic hematuria in the setting of nicotine dependence, and abnormal cytology. Recent CT urogram results reviewed with the patient today 02/18 no renal or ureteral calculi are identified. There is no hydronephrosis or hydroureter noted bilaterally. There is a 1.6 cm peripelvic cysts at the lower pole of the left kidney. The intrarenal collecting systems are unremarkable in appearance. The ureters are normal in caliber. No ureteral filling defects are identified. The urinary bladder is unremarkable. The prostate is in normal in size. In discussion with the patient today he reports somewhat improvement in episodes of nocturia with 25 mg of Myrbetriq. He reports episodes have decreased from 7-8 times per night down to 3 times per night. He has previously trialed Flomax, terazosin, and tolterodine without improvement in lower urinary tract symptoms. Previous workup has also included a retroperitoneal ultrasound 07/20 noting bilateral kidneys with no calculi, lesions, and or hydronephrosis. Left 1.7 cm benign simple appearing cyst which requires no imaging follow-up per radiology report. The bladder is well distended and normal. Pre void bladder volume is approximately 160 mL. Postvoid bladder volume is approximately 20 mL. Prostate measures 27 mL. He does report compliance with CPAP machine. In office urinalysis results reviewed with the patient today. He denies incontinence, visible/gross hematuria, dysuria, foul smelling urine, changes to urinary stream, flank pain, fever, and or chills. He does report a longstanding history of nicotine dependence since the age of 13. He reports typically smoking 1 pack per day however is down to approximately 7-10 cigarettes per day. We discussed importance of limiting/quitting for overall health and well-being however patient is not interested at this time. PSA 04/19 0.9. Urine cytologies are as follows: 09/20 Atypical urothelial cells, 11/18 Negative for high-grade urothelial carcinoma. We did discussed potential causes of microscopic hematuria. I discussed reasons for blood in the urine may include but are not limited to kidney stones, cancer in the urinary tract, BPH, kidney stone disease or inflammatory conditions of the urinary tract. I have discussed workup to include cystoscopy evaluation. All questions were answered. He otherwise offers no other issues or concerns at this time. [facility] Medical History Latent tuberculosis Abnormal CT scan, gastrointestinal tract Memory difficulties On anticoagulant therapy On beta russ at home Angina of effort HLD (hyperlipidemia) HTN (hypertension) COPD (chronic obstructive pulmonary disease) Arthritis Diabetes mellitus, type 2 Coronary artery disease Dizziness Peripheral vascular disease Surgical History Hx of colonoscopy S/P cardiac catheterization (~12/2020) S/P cardiac cath (~04/2020) Stented coronary artery S/P cardiac cath (~08/2019) S/P CABG x 3 (~09/2018) H/O coronary artery bypass surgery Social History Household Members: Children Housing: House Alcohol intake: current Alcohol intake frequency: holidays/special occasions only Patient Tobacco Use Status: Current everyday Tobacco user Tobacco use type: Cigarette Cigarette Packs Per Day: 1 Cigarettes Per Day: 8 Advance Directives Date on File: 04/24/22 service: No Current occupational status: disabled Review of Systems Const Reports no additional complaints Eyes Reports no additional complaints ENT Reports no additional complaints and Reports as per HPI Card Reports as per HPI Resp Reports as per HPI GI Reports no additional complaints Reports as per HPI Musc Reports as per HPI Neuro Reports as per HPI Psych Reports as per HPI Endo Reports no additional complaints Prasanth/Lymph Reports no additional complaints Aller/Immun Reports no additional complaints Physical Exam Const General: cooperative, healthy appearing, comfortable, no acute distress, well developed, alert and awake Orientation/consciousness: patient oriented x3 HEENT Head: Yes normal to inspection, Yes normocephalic and Yes atraumatic Ears: hearing grossly normal bilaterally Eyes General: appearance normal, both eyes and all related structures Neck Neck: Yes normal visual inspection and Yes trachea midline Chest Chest palpation & inspection: normal inspection of the chest Resp Effort & Inspection: normal respiratory effort and able to speak in complete sentences Cardio Rate: regular rate GI Inspection: Yes normal to inspection General: Yes no CVA tenderness Back/Spine/Pelvis Back: no CVA tenderness Skin General skin exam: no rashes or lesions noted Neuro General: patient oriented x3 Extrem General: Yes normal to inspection Psych Appearance: grossly normal and well kempt Mental Status: mental status grossly normal Speech and movement: Normal speech and movement present and Clear speech present Affect: normal affect Attitude: cooperative Thought process: Normal thought process present Thought content: Normal thought content present Insight: Fair insight present (Psych) Judgement: Fair judgement present (Psych) Results AMB Urinalysis, Automated UA Leukoctes 0 Shelia/uL Last Edit by ALLY Tejada on 04/28/25 11:56 UA Nitrite Negative Last Edit by Melvina Morales CCM on 04/28/25 11:56 UA Urobilinogen 0.2 mg/dL Last Edit by Melvina Morales CCM on 04/28/25 11:56 UA Protein 0 mg/dL Last Edit by Melvina Morales [facility] on 04/28/25 11:56 UA pH 6.0 Last Edit by Melvina Morales CCM on 04/28/25 11:56 UA Blood 10 Paulino/uL Last Edit by Melvina Morales CCM on 04/28/25 11:56 UA Specific [place] 1.010 Last Edit by Melvina Morales CCM on 04/28/25 11:56 UA Ketone Negative Last Edit by Melvina Morales CCM on 04/28/25 11:56 UA Bilirubin 0 mg/dL Last Edit by Melvina Morales CCM on 04/28/25 11:56 UA Glucose 0 mg/dL Last Edit by Melvina Morales [facility] on 04/28/25 11:56 Results Reviewed Results Reviewed: Laboratory Last Values Urine pH (Auto) 6.0 04/28/25 11:55 Specific [place] (Auto) 1.010 04/28/25 11:55 Urine Protein (Auto) 0 mg/dL 04/28/25 11:55 Glucose (UA)(Auto) 0 mg/dL 04/28/25 11:55 Urine Ketones (Auto) Negative 04/28/25 11:55 Urine Blood (Auto) 10 Paulino/uL 04/28/25 11:55 Urine Nitrite (Auto) Negative 04/28/25 11:55 Urine Bilirubin (Auto) 0 mg/dL 04/28/25 11:55 Urine Urobilinogen (Auto) 0.2 mg/dL 04/28/25 11:55 Leukocyte Esterase (Auto) 0 Shelia/uL 04/28/25 11:55 Date of Service: 01/26/25 Procedure(s): CT urogram ABDOMEN: LOWER CHEST: Tiny subpleural nodules are again seen at the lung bases. There is no pleural effusion. CARDIOVASCULATURE: The heart is normal in size. There is no pericardial effusion. LIVER: The liver is normal in size and contour. No liver mass is identified. The hepatic and portal veins are patent. GALLBLADDER / BILE DUCTS: There is focal thickening of the gallbladder fundus without change. There is no intra or extrahepatic biliary ductal dilatation. SPLEEN: The spleen is normal in size. No focal splenic lesion is identified. PANCREAS: The pancreas is unremarkable in appearance. ADRENAL GLANDS: Within normal limits. KIDNEYS/RETROPERITONEUM: No renal or ureteral calculi are identified. There is no hydronephrosis or hydroureter. There is a 1.6 cm parapelvic cyst at the lower pole of the left kidney. The intrarenal collecting systems are unremarkable in appearance. The ureters are normal in caliber. No ureteral filling defects are identified. LYMPH NODES: There are scattered subcentimeter retroperitoneal lymph nodes are not enlarged by CT criteria. VASCULATURE: The abdominal aorta demonstrates atherosclerotic calcification, but is normal in caliber. MESENTERY/PERITONEUM: No free fluid. No masses. There is no free intraperitoneal gas. STOMACH: The stomach is distended with debris. SMALL BOWEL: The small bowel is normal in caliber. COLON: The colon is unremarkable. APPENDIX: The appendix is not seen, however no inflammatory changes are seen adjacent to the cecum . URINARY BLADDER/PELVIC ORGANS: The urinary bladder is unremarkable. The prostate is normal in size. BONES / SOFT TISSUES: No suspicious bony or soft tissue abnormalities. IMPRESSION: 1. 1.6 cm left renal parapelvic cysts. Otherwise unremarkable CT urogram. 2. Focal thickening of the fundus of the gallbladder. Ultrasound correlation is suggested. Assessment & Plan Assessment & Plan (1) Microscopic hematuria: Code(s): R31.29 - Other microscopic hematuria Category: Medical (2) Abnormal cytology: Code(s): R89.6 - Abnormal cytological findings in specimens from other organs, systems and tissues Category: Medical (3) Nocturia: Code(s): R35.1 - Nocturia Category: Medical (4) Nicotine dependence: Code(s): F17.200 - Nicotine dependence, unspecified, uncomplicated Category: Medical (5) Renal cyst: Code(s): N28.1 - Cyst of kidney, acquired Category: Medical Plan In office urinalysis results reviewed with the patient today; as noted above; will send for urine cytology. Previous urine cytology results were reviewed; as noted above. Recent CT urogram results reviewed with the patient today; as noted above. We discussed the importance of management and diabetes as well as limiting fluids 2-3 hours prior to bed to decrease episodes of nocturia. We discussed importance of compliance in CPAP for improvement in nocturia as well as overall health and well-being. Will continue Myrbetriq however increase dosage as patient does report somewhat improvement in lower urinary tract symptoms. We did discuss potential causes of microscopic hematuria as well as further workup to include cystoscopy; risks and benefits were discussed. All questions were answered. We discussed the importance of limiting/quitting nicotine dependence for overall health and well-being. Will in PSA and A1c for further assessment evaluation Follow-up next available in office cystoscopy; or sooner with any issues, concerns, and or questions. Orders: Orders Urine Cytology Today R31.29 - Other microscopic hematuria, R89.6 - Abnormal cytological findings in specimens from other organs, systems and tissues Prostate Specific Antigen Today R35.1 - Nocturia AMB Urinalysis Automated Today Z13.9 - Encounter for screening, unspecified Hemoglobin A1c Today E11.9 - Type 2 diabetes mellitus without complications Medications: New mirabegron ER (Myrbetriq) this is an increase in dose 50 mg PO DAILY 90 tabs 1RF 90 days Discontinued mirabegron ER (Myrbetriq) Discontinued Reason: Doctor's Order 25 mg PO DAILY 30 days 30 tabs 3RF N30.10 - Interstitial cystitis (chronic) without hematuria, N32.81 - Overactive bladder, R35.1 - Nocturia, R39.15 - Urgency of urination Patient Instructions: The patient had an opportunity to ask questions regarding the treatment plan. All questions were answered. Physical exam, labs, and imaging were discussed and reviewed in detail. As well as risks, benefits, and discussion of treatment choices. No major barriers to understanding were identified. The patient expressed understanding and agreement with the above treatment plan. The patient was made aware they should contact our office by phone for worsening of their current condition, the appearance of new symptoms, or with any questions or concerns. Compliance is encouraged with any medications and follow up testing that is ordered. It is a privilege to be allowed the opportunity to participate in? your urological care.? Again, if you have any questions or concerns If you have any questions or concerns please do not hesitate to contact me. The office is [phone]. This note is constructed using voice recognition software. While every effort has been made to ensure accuracy commercial front load operator errors may have been included. Yours sincerely, KISHORE Murray Coding Level of Care Code Est Pt Level 3 (62327) Complex EM visit Add On G2211 Diagnoses Microscopic hematuria R31.29 Abnormal cytology R89.6 Nocturia R35.1 Nicotine dependence F17.200 Renal cyst N28.1
--- OUTSIDE RECORDS SUMMARY | 2025-04-28 13:10 | XMS_ITS | Encounter Summary ---
Author Organization [employer] Address [address] [facility] [address] [address] [place] [address] Care Team Providers Care Stationary Boiler Fireman Name Role Phone Susie Park MD Primary Care Provide r Reason for Visit * Reason Onset Date Comments Nurse Triage 10/18/2023 Encounter Details Date Type Department Care Team ([facility] st Contact Info) Description 10/18/2023 Telephone [facility] [address], [place] [phone] Susie Park MD [address] [place], [place] [phone] Nurse Triage Social History Tobacco Use Types [...] and daughter advised of disposition, agree to [facility] now for exam due [...] Care Team (Late st Contact Info) Description 05/01/2025 11:00 AM EDT Office Visit [address] [address] Chad Mello MD [address] [place] [phone] 06/18/2025 10:15 AM EDT Office Visit [address] [phone] Susie Park MD [address] [place] [phone] documented as of this encounter Visit Diagnoses Not on filedocumented in this encounter Additional Health Concerns Assessment Noted Time PHQ-9 Depression Total Score: 8 10/24/19 23 11:22 AM EST documented as of this encounter Care Teams Stationary Boiler Fireman Relationship Specialty Start Date End Date Susie Park MD [address] [place] [address] [phone] PCP - General Family Medicine 07/08/18 documented as of this encounter
--- OUTSIDE RECORDS SUMMARY | 2025-04-28 13:10 | XMS_ITS | Encounter Summary ---
Author Organization [employer] Address [address] [facility] [address] [place] [address] Care Team Providers Care Manager Report Name Role Phone Susie Park MD Primary Care Provide r Encounter Details Date Type Department Care Team ([facility] Contact Info) Description 08/30/2022 Abstract [facility] [address] [place] [address] [phone] Susie Park MD [address] [place], [place] [phone] Social History Tobacco Use Types Packs/Day Years [...] Upcoming Encounters Date Type Department Care Team ([facility] Contact Info) Description 05/01/2025 11:00 AM EDT Office Visit [facility] [address] [place] [phone] Chad Mello MD [address] [place], [place] [phone] 06/18/2025 10:15 AM EDT Office Visit [facility] [address] [place], [place] [phone] Susie Park MD [address] [place] [address] [phone] documented as of this encounter Visit Diagnoses Not on filedocumented in this encounter Additional Health Concerns Assessment Noted Time PHQ-9 Depression Total Score: 17 022 9:43 AM EST documented as of this encounter Care Teams Manager Report Relationship Specialty Start Date End Date Susie Park MD [address] [place] [address] [phone] PCP - General Family Medicine 07/08/18 documented as of this encounter
--- OUTSIDE RECORDS SUMMARY | 2025-04-28 13:10 | XMS_ITS | Clinical Summary ---
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 30 tablet 11 024 Active Diclofenac Sodium 1 % gelIndications:Ch ronic [...] 1 TABLET BY MOUTH DAILY 28 tablet 024 Active Trulicity 0.75 MG/0.5ML solution auto-injector INJECT 0.5 ML EVERY WEEK IN ABDOMEN,THIGH OR UPPER ARM ROTATE SITES 2 mL 1 025 Active albuterol 108 (90 Base) MCG/ACT inhaler INHALE 2 PUFFS BY MOUTH EVERY SIX HOURS NEEDED FOR WHEEZING 8.5 g 2 025 Active glucose blood (FREESTYLE LITE) test stripIndications: Type 2 diabetes mellitus with other specified complication, with long-term current use of insulin ([facility]) TEST BLOOD SUGAR TWICE A DAY 100 each 025 Active insulin pen needle (UltiCare Micro Pen Reddick) 32G x 4 mm misc USE DAILY WITH INSULIN 100 each 025 Active loratadine (Claritin) 10 MG tabletIndications :Intrinsic eczema TAKE 1 TABLET BY MOUTH EVERY MORNING 28 tablet 5 025 Active nicotine (Nicoderm CQ) 14 MG/24HR patchIndications: Smoker Place 1 patch on the skin 1 (one) time each day at the same time. 30 patch 025 Active betamethasone, augmented, (Diprolene) 0.05 % ointmentIndicatio ns:Psoriasis vulgaris Apply topically 2 times daily. 45 g 025 Active calcipotriene (Dovonex) 0.005 % creamIndications: Psoriasis vulgaris Apply topically 2 times daily. 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 90 tablet 1 025 Active Lantus SoloStar 100 UNIT/ML pen INJECT SUBCUTANEOUSLY 50 UNITS DAILY 15 mL 025 Active Lantus SoloStar 100 UNIT/ML pen INJECT SUBCUTANEOUSLY 50 UNITS DAILY 15 mL 025 2024 Discontinued acetaminophen (Tylenol 8 Hour) 650 MG ER tabletIndications :Primary osteoarthritis of both knees take 1-2 tablet by oral route every 12 hours as needed swallowing whole with water. Do not break, crush, dissolve and/or chew. 90 tablet 1 025 2024 Discontinued Active Problems Problem Noted Date Diagnosed Date Forgetfulness 03/12/2025 Assessment & Plan (03/12/2025 12:29 PM EDT): Neurology referral done Severe persistent asthma without complication Assessment & [...] this problem Psoriasis 02/26/2023 Assessment & Plan (03/12/2025 12:29 PM EDT): Continue to follow-up with dermatology Assessment & Plan (02/26/2023 12:24 PM EDT): [...] (08/31/2022 9:40 PM EST): Patient to call [facility] to schedule abd US, a VM had [...] knee 08/22/2022 Coronary artery disease invo lving rampart coronary artery of rampart heart with angina pectoris 08/22/2022 Assessment & [...] refractory 08/22/2022 Subcapsular hemorrhage of spleen 08/22/2022 Smoker 02/19/2018 Assessment & Plan (10/24/2022 12:06 [...] 2 diabetes mellitus 06/20/2017 Assessment & Plan (03/12/2025 12:28 PM EDT): Diabetes is: almost at goal - Lab Results Component Value Date HGBA1C 7.3 (A) 03/12/2025 HGBA1C 6.8 (A) 12/11/2024 HGBA1C 7.1 (A) 07/15/2024 - Lab Results Component Value Date MICROALBUR 2.2 09/15/2020 CREATININE 1.2 01/26/2025 -Changes: None - Diabetic eye exam: Up-to-date - Diabetic foot exam: Pending - Continue lifestyle modifications - Continue current medications - Follow up: 3 months Assessment & Plan (12/11/2024 10:42 AM EDT): [...] Problem Noted Date Diagnosed Date Resolved Date Alcoholism 02/19/2018 03/12/2025 Stimulant dependence 02/19/2018 025 Benzodiazepine dependence, continuous 06/20/2017 12/11/2024 Chronic pulmonary embolism 06/20/2017 0 12/11/2024 Cocaine dependence in remission 02/21/2017 12/11/2024 Opioid dependence in remission 02/21/2017 12/11/2024 Encounters Date Type Department Care Team Description 04/09/2025 Telephone [facility] [address] [place] [address] Susie Park MD OCT RECALL 04/06/2025 Refill [facility] [address] [place] [address] Susie Park MD 04/01/2025 Refill [facility] [address] [place] [address] [facility], [facility] Primary osteoarthritis of both knees 03/13/2025 Telephone [facility] [address] [place] [phone] Susie Park MD 03/12/2025 11:30 AM EDT Office Visit [address] [address] Susie Park MD Psoriasis (Primary Dx); Type 2 diabetes mellitus with other specified complication, with long-term current use of insulin ([facility]); Forgetfulness; Dietary counseling; Exercise counseling 03/12/[address] [address] Susie Park MD telephone call 03/12/2025 Travel 03/06/2025 Refill [facility] [address] [place] [address] Susie Park MD 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 ([facility]) 02/20/2025 Telephone [facility] [address] [place] [address] Susie Park MD telephone call 02/04/2025 Refill [facility] [address] [place] [address] Susie Park MD Primary osteoarthritis of both knees 01/26/2025 Orders Only GENERIC EXTERNAL DATA DEPARTMENT Provider, [...] Answer Date Recorded Patient Health Questionnaire-9 Score 5 03/12/2025 Patient Health Questionnaire-9 Score 5 03/12/2025 Last PHQ-9: Questionnaire Data Not on file 0 03/12/2025 Housing Stability Answer Date Recorded What is your housing situation today? I do not have housing (Staying with others, in a hotel, in a [place], living outside on the street, on a [...] the past 12 months, has t he [employer], gas, oil or water company threatened to shut off services in your home? No 09/24/2023 Depression Answer Date Recorded Patient Health Questionnaire-2 Score 2 03/12/2025 Internet Access Answer Date Recorded Internet Access [...] Sign Reading Time Taken Comments Blood Pressure 134/70 03/12/2025 11:30 AM EDT Pulse 86 03/12/2025 11:24 AM EDT Temperature 36.8 C (98.2 F) 03/12/2025 11:24 AM EDT Respiratory Rate 24 03/12/2025 11:24 AM EDT Oxygen Saturation 98% 07/15/2024 10:36 AM EST Inhaled Oxygen Concentration - - Weight 78.2 kg (172 lb 6 oz) 03/12/2025 11:24 AM EDT Height 167.6 cm (5' 6 ) 03/12/2025 11:24 AM EDT Body Mass Index 27.82 03/12/2025 11:24 AM EDT Plan of Treatment Upcoming Encounters Date Type Department Care Team (Late st Contact Info) Description 05/01/2025 11:00 AM EDT Office Visit [facility] [address] [place] [phone] Chad Mello MD [address] [place] [phone] 06/18/2025 10:15 AM EDT Office Visit [facility] [address] [place] [phone] Susie Park MD [address] [place] [address] Health Maintenance Due Date Last Done Comments CT Colonography 1955 FIT DNA/Cologuard 1955 FIT 1955 FOBT 1955 Sigmoidoscopy 1955 RSV Patients and Patients Aged 60 years or older (1 - Risk 60-74 years 1-dose series) 2015 Diabetes: Urine Protein Screening 09/15/2021 09/15/2020 Zoster Vaccines (2 of 2) 04/16/2023 02/19/2023 Eye Exam 05/15/2023 05/15/2022 Diabetes: Foot Exam 12/09/2023 12/08/2022, COVID-19 Vaccine ( season) 2024 05/16/2024, 10/24/2022, 07/15/2021, Additional history exists Influenza Vaccine (#1) 2025 04/23/2012, 2010 Diabetes: Hemoglobin A1C 06/12/2025 025, 12/11/2024, 07/15/2024, Additional history exists Alcohol/Substance Use Screening 07/15/2025 07/15/2024 SDOH Screening 07/15/2025 07/15/2024 Lipid Panel 12/26/2025 12/26/2024, 03/27, 04/14/2024, Additional history exists Depression Screening 03/12/2026 03/12/2025, 03/12/20 Tobacco Screening 03/12/2026 03/12/2025 Colonoscopy 04/12/2027 04/12/2022 Colorectal Cancer Screening 04/12/2027 [...] Name Priority Date/Time Associated Diagnosis Comments POCT GLUCOSE Routine 03/12/2025 11:33 AM EDT Type 2 diabetes mellitus with other specified complication, with long-term current use of insulin ([facility]) POCT GLYCATED HEMOGLOBIN, TOTAL Routine 03/12/2025 11:32 AM EDT Type 2 diabetes mellitus with other specified complication, with long-term current use of insulin ([facility]) CT UROGRAM WO CONTRAST Routine 01/26/2025 10:31 AM EDT POCT CREATININE GFR Routine 01/26/2025 1 0:22 AM EDT LIPID PANEL, STANDARD Routine 12/26/2024 10:38 AM EDT HEPATITIS C ANTIBODY REFLEX Routine 03/12/2023 11:45 AM EDT HM COLONOSCOPY Routine 04/12/2022 9:53 PM EDT ALBUMIN, RANDOM URINE W/CREATININE Routine 09/15/2020 8:43 AM EST from Last 3 Months or Most Recently Relevant to Health Maintenance Results * (ABNORMAL) POCT Glucose (03/12/2025 11:33 AM EDT) Glucose Blood, POC 205(A) 60 - 200 mg/dL Comment:random QC Media Lot # [id number] Lot# Expiration Date [id number] Blood Capillary blood specimen / Unknown 03/12/2025 11:33 AM EDT Susie Cintron MD POINT OF CARE TEST EN TER/EDIT ORDERABLES Final Result * (ABNORMAL) POCT HGB A1C (03/12/2025 11:32 AM EDT) Hemoglobin A1C 7.3(A) 4.0 - 5.7 % QC Media Lot # [id number] Lot# Expiration Date [id number] Blood 03/12/2025 11:3 2 AM EDT Susie Cintron MD POINT OF CARE TEST EN TER/EDIT ORDERABLES Final Result * CT Urogram w/o Contrast (01/26/2025 10:31 AM EDT) Anatomical Region Laterality Modality Ureter, Upper urinary tract Comp uted Tomography 01/26/2025 10:3 1 AM EDT Narrative 01/26/2025 1:53 PM EDT [place] [address] [address] Scan Report Signed Patient: Elio Calles MR#: [id number] 20 : 1955 Acct:[id number] Age/Sex: 69 / M ADM Date: 01/26/25 Loc: HO.CT Attending Dr: Ana Langley [facility] Ordering Physician: Ana Langley Date of Service: 01/26/25 Procedure(s): CT urogram Accession Number(s): [id number] cc: Susie Park MD; Ana Langley [facility] Report Number: [id number]: Total DLP = 900.00 mGy-cm EXAMINATION: CT ABDOMEN PELVIS UROGRAPHY WITHOUT THEN WITH IV CONTRAST HISTORY: R31.29 - Other microscopic hematuria COMPARISON: Patent is made with the prior examination dated 06/27/2023. TECHNIQUE: CT scan of the abdomen and pelvis was performed before and after the intravenous administration of 85 mL Omnipaque 350. Postcontrast images were obtained using a split bolus technique. Coronal and sagittal reformatted images were generated and reviewed. Oral contrast material was not administered per department protocol. This CT exam was performed with one or more of the following dose reduction techniques: automated exposure control, adjustment of the mA and/or kV according to patient size, use of iterative reconstruction technique. DLP: 900 mGy-cm ABDOMEN: LOWER CHEST: Tiny subpleural nodules are again seen at the lung bases. There is no pleural effusion. CARDIOVASCULATURE: The heart is normal in size. There is no pericardial effusion. LIVER: The liver is normal in size and contour. No liver mass is identified. The hepatic and portal veins are patent. GALLBLADDER / BILE DUCTS: There is focal thickening of the gallbladder fundus without change. There is no intra or extrahepatic biliary ductal dilatation. SPLEEN: The spleen is normal in size. No focal splenic lesion is identified. PANCREAS: The pancreas is unremarkable in appearance. ADRENAL GLANDS: Within normal limits. KIDNEYS/RETROPERITONEUM: No renal or ureteral calculi are identified. There is no hydronephrosis or hydroureter. There is a 1.6 cm parapelvic cyst at the lower pole of the left kidney. The intrarenal collecting systems are unremarkable in appearance. The ureters are normal in caliber. No ureteral filling defects are identified. LYMPH NODES: There are scattered subcentimeter retroperitoneal lymph nodes are not enlarged by CT criteria. VASCULATURE: The abdominal aorta demonstrates atherosclerotic calcification, but is normal in caliber. MESENTERY/PERITONEUM: No free fluid. No masses. There is no free intraperitoneal gas. STOMACH: The stomach is distended with debris. SMALL BOWEL: The small bowel is normal in caliber. COLON: The colon is unremarkable. APPENDIX: The appendix is not seen, however no inflammatory changes are seen adjacent to the cecum . URINARY BLADDER/PELVIC ORGANS: The urinary bladder is unremarkable. The prostate is normal in size. BONES / SOFT TISSUES: No suspicious bony or soft tissue abnormalities. CT/CT urogram IMPRESSION: 1. 1.6 cm left renal parapelvic cysts. Otherwise unremarkable CT urogram. 2. Focal thickening of the fundus of the gallbladder. Ultrasound correlation is suggested. Electronically signed by: Gene Houston MD 01/26/2025 01:49 PM EDT Dictated By: Gene Houston MD Signed By: <Electronically signed by Gene Houston MD in OV> 01/26/25 1349 DD/ 1031 TD/TT: 01/26/25 1057 Cvt Rn: Procedure Note Donotuseinterpreter, Image - 01/26/[address] [address] [address] Scan Report Signed Patient: Jerome Calles#: [id number] [birth year] : 5Acct:[id number] Age/Sex: 69 / MADM Date: 01/26/25 Loc: HO.CT Attending Dr: Ana Langley [facility] Ordering Physician: Ana Langley Date of Service: 01/26/25 Procedure(s): CT urogram Accession Number(s): [id number] cc: Susie Park MD; Ana Langley [facility] Report Number: [id number]: Total DLP = 900.00 mGy-cm EXAMINATION: CT ABDOMEN PELVIS UROGRAPHY WITHOUT THEN WITH IV CONTRAST HISTORY: R31.29 - Other microscopic hematuria COMPARISON: Patent is made with the prior examination dated 06/27/2023. TECHNIQUE: CT scan of the abdomen and pelvis was performed before and after the intravenous administration of 85 mL Omnipaque 350. Postcontrast images were obtained using a split bolus technique. Coronal and sagittal reformatted images were generated and reviewed. Oral contrast material was not administered per department protocol. This CT exam was performed with one or more of the following dose reduction techniques: automated exposure control, adjustment of the mA and/or kV according to patient size, use of iterative reconstruction technique. DLP: 900 mGy-cm ABDOMEN: LOWER CHEST: Tiny subpleural nodules are again seen at the lung bases. There is no pleural effusion. CARDIOVASCULATURE: The heart is normal in size. There is no pericardial effusion. LIVER: The liver is normal in size and contour. No liver mass is identified. The hepatic and portal veins are patent. GALLBLADDER / BILE DUCTS: There is focal thickening of the gallbladder fundus without change. There is no intra or extrahepatic biliary ductal dilatation. SPLEEN: The spleen is normal in size. No focal splenic lesion is identified. PANCREAS: The pancreas is unremarkable in appearance. ADRENAL GLANDS: Within normal limits. KIDNEYS/RETROPERITONEUM: No renal or ureteral calculi are identified. There is no hydronephrosis or hydroureter. There is a 1.6 cm parapelvic cyst at the lower pole of the left kidney. The intrarenal collecting systems are unremarkable in appearance. The ureters are normal in caliber. No ureteral filling defects are identified. LYMPH NODES: There are scattered subcentimeter retroperitoneal lymph nodes are not enlarged by CT criteria. VASCULATURE: The abdominal aorta demonstrates atherosclerotic calcification, but is normal in caliber. MESENTERY/PERITONEUM: No free fluid. No masses. There is no free intraperitoneal gas. STOMACH: The stomach is distended with debris. SMALL BOWEL: The small bowel is normal in caliber. COLON: The colon is unremarkable. APPENDIX: The appendix is not seen, however no inflammatory changes are seen adjacent to the cecum . URINARY BLADDER/PELVIC ORGANS: The urinary bladder is unremarkable. The prostate is normal in size. BONES / SOFT TISSUES: No suspicious bony or soft tissue abnormalities. CT/CT urogram IMPRESSION: 1. 1.6 cm left renal parapelvic cysts. Otherwise unremarkable CT urogram. 2. Focal thickening of the fundus of the gallbladder. Ultrasound correlation is suggested. Electronically signed by: Gene Houston MD 01/26/2025 01:49 PM EDT Dictated By: Gene Houston MD Signed By: <Electronically signed by Gene Houston MD in OV> 01/26/25 1349 DD/ 1031 TD/TT: 01/26/25 1057 Cvt Rn: us [facility] External Provider IMG CT PROCEDURES Edited Result - Final * POCT Creatinine GFR (01/26/2025 10:22 AM EDT) POCT Creatinine 1.2 0.5 - 1.4 mg/dL [facility] GFR POC >60 [facility] Comment:Chronic Kidney Disea se: Estimated GFR < 60 mL/min/1.04g4Ppwrmt Kidney Disease: Estimated GFR < 15 mL/min/1.73m2 01/26/2025 10:2 2 AM EDT 01/26/2025 11:39 AM EDT Narrative [facility] - 01/26/2025 11:41 AM EDT [id number] Generic External Data Provider LAB POINT OF CARE TEST DOCKED DEVICE ORDERABLES Final Result [facility] [address] [place] [phone] * (ABNORMAL) Lipid Panel, Standard (12/26/2024 10:38 AM EDT) Triglycerides 124 <150 mg/dL [facility] Comment:Desirable Triglyceri de: less than 150 mg/dLBorderline High Triglyceride 150-199 mg/dLHigh Triglyceride: 200-499 mg/dLVery High Triglyceride: greater than or equal to 5OO mg/dL Cholesterol 205(H) <200 mg/dL [facility] Comment:Desirable Cholestero l: less than 200 mg/dLBorderline High Cholesterol: 200-239 mg/dLHigh Cholesterol: greater than 239 mg/dL LDL Cholesterol Calculated 138(H) <100 mg/dL [facility] Comment:Desirable LDL: less than 100 mg/dLNear Optimal/Above Optimal LDL: 110- 129 mg/dLBorderline High LDL: 130-159 mg/dLHigh LDL: 160-189 mg/dLVery High LDL: greater than or equal to 190 mg/dL HDL Cholesterol 43 >40 mg/dL [facility] Comment:Desirable HDL: great er than 40 mg/dL Note: This HDL assay may give artificially low results in patients with liver disease. 12/26/2024 10:3 8 AM EDT 12/26/2024 11:08 AM EDT [facility] External Data Provider LAB BLOOD ORDERAB LES Final Result Performing Organization Address City/[facility] Co de Phone Number [facility] [address] [place] [address] [phone] * Hepatitis C Antibody Reflex (03/12/2023 11:45 AM EDT) Hepatitis C Antibody Nonreactive Nonreactive [facility] Comment:Antibodies to HCV no t detected; does not exclude early acuteHCV infection. 03/12/2023 11:4 5 AM EDT 03/12/2023 1:40 PM EDT [facility] External Provider LAB BLO OD ORDERABLES Final Result [facility] [address] [place] [address] [phone] * Colonoscopy (04/12/2022 9:53 PM EDT) us Historical Provider HEALTH MAINTENANCE Final Result * ALBUMIN, RANDOM URINE W/CREATININE (09/15/2020 8:43 AM EST) Microalbumin Urine 2.2 See Note: mg/dL [facility] Comment: Reference Range: Reference Range Not established Microalb/Creat Ratio 15 <30 mcg/mg creat [facility] Comment: The ADA defines abnormalities in albumin excretion as follows: Category Result (mcg/mg creatinine) Normal <30 Microalbuminuria 30-299 Clinical albuminuria > OR = 300 The ADA recommends that at least two of three specimens collected within a 3-6 month period be abnormal before considering a patient to be within a diagnostic category. Creatinine, Urine 151 20 - 320 mg/dL [facility] 09/15/2020 8:43 AM EST us Suise Cintron MD LAB URINE ORDERABLES Final Result [facility] [address] from Last 3 Months or Most Recently Relevant to Health Maintenance [place] [address] [place] [phone] FOR[facility] [employer] (HMO D-SNP) [employer] [employer] [id number] Care Teams Senior Project Engineer Relationship Specialty Start Date End Date Susie Park MD [address] [place] [phone] PCP - General Family Medicine 07/08/18
--- OUTSIDE RECORDS SUMMARY | 2025-04-28 13:10 | XMS_ITS | Encounter Summary ---
Author Organization [employer] Address 75 [facility] 7t [place] [address] Care Team Providers Care Handbag Frames Inspector Name Role Phone Susie Park MD Primary Care Provide r Reason for Visit * Reason Comments Med Refill Encounter Details Date Type Department Care Team (Late st Contact Info) Description 10/15/2024 Refill [facility] [address] [place], [place] [phone] Susie Park MD [address] [place] [address] Social History Tobacco Use Types Packs/Day Years [...] Description 05/01/2025 11:00 AM EDT Office Visit [facility] [address] [place] [place] [phone] Chad Mello MD [address] [place] [phone] 06/18/2025 10:15 AM EDT Office Visit [facility] [address] [place] [place] [phone] Susie Park MD [address] [place] [phone] documented as of this encounter Visit Diagnoses Not on filedocumented in this encounter Additional Health Concerns Assessment Noted Time PHQ-9 Depression Total Score: 9 04/14/20 24 10:39 AM EDT documented as of this encounter Care Teams Handbag Frames Inspector Relationship Specialty Start Date End Date Susie Park MD [address] [place] [phone] PCP - General Family Medicine 07/08/18 documented as of this encounter
--- OUTSIDE RECORDS SUMMARY | 2025-04-28 13:10 | XMS_ITS | Encounter Summary ---
Author Organization [employer] Address 75 [facility] [address]t [place] [address] Care Team Providers Care Access Assoc Name Role Phone Susie Park MD Primary Care Provide r Encounter Details Date Type Department Care Team ([facility] Contact Info) Description 03/07/2023 Orders Only [facility] [address] [place] [phone] Jodie Mejia MD [address] [place] [address] Psoriasis (Primary Dx) Social History Tobacco Use [...] Upcoming Encounters Date Type Department Care Team ([facility] Contact Info) Description 05/01/2025 11:00 AM EDT Office Visit [facility] [address] [place] [address] Chad Mello MD [address] [place], [place] [phone] 06/18/2025 10:15 AM EDT Office Visit [facility] [address] [place] [phone] Susie Park MD [address] [place], [place] [phone] Scheduled Orders Name Type Priority Associated Diagnoses [...] documented as of this encounter Care Teams Access Assoc Relationship Specialty Start Date End Date Susie Park MD [address] [place] [address] [phone] PCP - General Family Medicine 07/08/18 documented as of this encounter
--- OUTSIDE RECORDS SUMMARY | 2025-04-28 13:10 | XMS_ITS | Encounter Summary ---
Author Organization [employer] Address 75 [facility] 7t [place] [address] Care Team Providers Care Instrumentation And Control Technician Name Role Phone Susie Park MD Primary Care Provide r Reason for Visit * Reason Comments Med Refill Encounter Details Date Type Department Care Team (Late st Contact Info) Description 08/19/2024 Refill [facility] MED & PEDS [address] [place], [place] [phone] uSsie Park MD [address] [place] [address] Social History Tobacco Use Types Packs/Day Years [...] AM EDT Office Visit [facility] MEDICINE [address] [place] [phone] Chad Mello MD [address] [place] [address] 06/18/2025 10:15 AM EDT Office Visit [facility] MEDICINE [address] [place] [phone] Susie Park MD [address] [place] [address] documented as of this encounter Visit Diagnoses Not on filedocumented in this encounter Additional Health Concerns Assessment Noted Time PHQ-9 Depression Total Score: 9 04/14/20 24 10:39 AM EDT documented as of this encounter Care Teams Instrumentation And Control Technician Relationship Specialty Start Date End Date Susie Park MD [address] [place] [phone] PCP - General Family Medicine 07/08/18 documented as of this encounter
--- OUTSIDE RECORDS SUMMARY | 2025-04-28 13:10 | XMS_ITS | Encounter Summary ---
Author Organization [employer] Address 75 [facility] 7t [place] [address] Care Team Providers Care Tape Making Machine Operator Name Role Phone Susie Park MD Primary Care Provide r Reason for Visit * Reason Comments Med Refill Encounter Details Date Type Department Care Team (Late st Contact Info) Description 01/08/2025 Refill [facility] CHC MED & PEDS [address] [place], [place] [phone] Susei Park MD [address] [place] [address] Social History Tobacco Use Types Packs/Day Years [...] Description 05/01/2025 11:00 AM EDT Office Visit [facility] MEDICINE [address] [place] [address] Chad Mello MD [address] [place] [address] 06/18/2025 10:15 AM EDT Office Visit [facility] MEDICINE [address] [place] [address] Susie Park MD [address] [place] [address] 92[address] documented as of this encounter Visit Diagnoses Not on filedocumented in this encounter Additional Health Concerns Assessment Noted Time PHQ-9 Depression Total Score: 9 04/14/20 24 10:39 AM EDT documented as of this encounter Care Teams Tape Making Machine Operator Relationship Specialty Start Date End Date Susie Park MD [address] [place] [phone] PCP - General Family Medicine 07/08/18 documented as of this encounter
--- OUTSIDE RECORDS SUMMARY | 2025-04-28 13:10 | XMS_ITS | Encounter Summary ---
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) Social History [...] Description 05/01/2025 11:00 AM EDT Office Visit [facility] MEDICINE [address] [place] [address] Chad Mello MD [address] [place] [address] 06/18/2025 10:15 AM EDT Office Visit [facility] MEDICINE [address] [place] [address] 97[address] Susie Park MD [address] [place] [address] documented as of this encounter Visit Diagnoses Diagnosis 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
--- OUTSIDE RECORDS SUMMARY | 2025-04-28 13:10 | XMS_ITS | Encounter Summary ---
Author Organization [employer] Address [address] [facility] [address] 7t [place] [address] Care Team Providers Care Boat Repairer Name Role Phone Susie Park MD Primary Care Provide r Encounter Details Date Type Department Care Team ([facility] st Contact Info) Description 09/03/2023 Orders Only [facility] MEDICINE 230 [place], [place] [phone] Susie Park MD [address] [place] [address] [place], [place] [phone] Social History Tobacco Use Types Packs/Day Years [...] AM EDT Office Visit [facility] MED[facility]INE [address] [place] [address] Chad Mello MD [address] [place] [address] 06/18/2025 10:15 AM EDT Office Visit [facility] [address] [place] [address] 6[address] Susie Park MD [address] [place] [address] documented as of this encounter Visit Diagnoses Not on filedocumented in this encounter Additional Health Concerns Assessment Noted Time PHQ-9 Depression Total Score: 8 10/24/19 23 11:22 AM EST documented as of this encounter Care Teams Boat Repairer Relationship Specialty Start Date End Date Susie Park MD [address] [place] [phone] PCP - General Family Medicine 07/08/18 documented as of this encounter
--- OUTSIDE RECORDS SUMMARY | 2025-04-28 13:10 | XMS_ITS | Encounter Summary ---
Author Organization [employer] Address 75 [facility] 7t [place] [address] Care Team Providers Care Customs Agent Name Role Phone Susie Park MD Primary Care Provide r Reason for Visit * Reason Comments Med Refill Encounter Details Date Type Department Care Team ([facility] st Contact Info) Description 09/20/2023 Refill [facility] MEDICINE 230 [place], [place] [phone] Kacey Edwards MD 230 [place], [place] [phone] Otitis externa of both ears, unspecified chronicity, [...] Description 05/01/2025 11:00 AM EDT Office Visit [facility] MEDICINE [address] [place] [address] Chad Mello MD [address] [place] [address] 06/18/2025 10:15 AM EDT Office Visit [facility] MEDICINE [address] [place] [address] 9[address] Susie Park MD [address] [place] [address] 45867 documented as of this encounter Visit Diagnoses Diagnosis Otitis externa of both ears, unspecified chronicity, unspecified type documented in this encounter Additional Health Concerns Assessment Noted Time PHQ-9 Depression Total Score: 8 10/24/19 23 11:22 AM EST documented as of this encounter Care Teams Customs Agent Relationship Specialty Start Date End Date Susie Park MD [address] [place] [address] [phone] PCP - General Family Medicine 07/08/18 documented as of this encounter
--- OUTSIDE RECORDS SUMMARY | 2025-04-28 13:10 | XMS_ITS | Encounter Summary ---
Author Organization [employer] Address 75 [facility] 7t [place] [address] Care Team Providers Care Loan Processing Supervisor Name Role Phone Susie Park MD Primary Care Provide r Reason for Visit * Reason Comments Med Refill Encounter Details Date Type Department Care Team (Late st Contact Info) Description 09/17/2024 Refill [facility] CHC MED & PEDS [address] [place], [place] [phone] Susie Park MD 230 [place] [address] Social History Tobacco Use Types Packs/Day Years [...] Description 05/01/2025 11:00 AM EDT Office Visit [facility] MEDICINE [address] [place] [address] Chad Mello MD [address] [place] [address] 06/18/2025 10:15 AM EDT Office Visit [facility] MEDICINE [address] [place] [address] 6[address] Susie Park MD [address] [place] [address] 340[address] documented as of this encounter Visit Diagnoses Not on filedocumented in this encounter Additional Health Concerns Assessment Noted Time PHQ-9 Depression Total Score: 9 04/14/20 24 10:39 AM EDT documented as of this encounter Care Teams Loan Processing Supervisor Relationship Specialty Start Date End Date Susie Park MD [address] [place] [phone] PCP - General Family Medicine 07/08/18 documented as of this encounter
--- OUTSIDE RECORDS SUMMARY | 2025-04-28 13:10 | XMS_ITS | Encounter Summary ---
Author Organization [employer] Address 75 [facility] 7t [place] [address] Care Team Providers Care Train Caller Name Role Phone Susie Park MD Primary Care Provide r Reason for Visit * Reason Comments Med Refill Encounter Details Date Type Department Care Team (Late st Contact Info) Description 01/12/2025 Refill [facility] CHC MED & PEDS [address] [place], [place] [phone] Susie Park MD 230 [place] [address] Social History Tobacco Use Types Packs/Day Years [...] Description 05/01/2025 11:00 AM EDT Office Visit [facility] MEDICINE [address] [place] [address] Chad Mello MD [address] [place] [address] 94[address] 06/18/2025 10:15 AM EDT Office Visit [facility] MEDICINE [address] [place] [address] Susie Park MD [address] [place] [address] documented as of this encounter Visit Diagnoses Not on filedocumented in this encounter Additional Health Concerns Assessment Noted Time PHQ-9 Depression Total Score: 9 04/14/20 24 10:39 AM EDT documented as of this encounter Care Teams Train Caller Relationship Specialty Start Date End Date Susie Park MD [address] [place] [phone] PCP - General Family Medicine 07/08/18 documented as of this encounter
== END 2025-04-28 12:20 | disposition home or self-care (01) ==
LOC: HO.HUSH 11:30
PROVIDERS: PCP Internal Medicine; Visit Provider Nurse Practitioner Family
DX: R31.29 Other microscopic hematuria (principal); R89.6 Abnormal cytological findings in specimens from other organs, systems and tissues; R35.1 Nocturia; F17.200 Nicotine dependence, unspecified, uncomplicated; N28.1 Cyst of kidney, acquired; Z13.9 Encounter for screening, unspecified
CPT/HCPCS: 99213; G2211

== ENCOUNTER 2025-05-07 11:30 | Outpatient (REF) | payer OTHER, SELFPAY ==
--- NOTE | ~2025-05-07 | XR_ITS ---
EXAMINATION: XR CHEST 2 VIEWS HISTORY: cough x 1 weeks with COPD COMPARISON: Comparison is made with the prior examination dated 10/16/2023. FINDINGS: PA and lateral views of the chest are submitted. The lungs are expanded and clear. There is no pleural effusion, pneumothorax, or pulmonary vascular congestion. The heart is normal in size. 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 XR/XR chest 2V IMPRESSION: No acute cardiopulmonary abnormality. Electronically signed by: Gene Houston MD 05/07/2025 11:46 AM EDT
--- OUTSIDE RECORDS SUMMARY | 2025-05-07 10:40 | XMS_ITS | Encounter Summary ---
Author Organization ? [employer] Address 75 [facility] 7t [place] [address] Care Team Providers Care Presentation Specialist Name Role Phone Susie Park MD Primary Care Provide r Reason for Visit * Reason Comments Cough Encounter Details Date Type Department Care Team ([facility] Contact Info) Description 05/07/2025 10:40 AM EDT Office Visit [facility] [address] [place] [phone] Carolina Landers MD [address] [place] [address] Cough productive of yellow sputum (Primary Dx) Social History Tobacco Use Types [...] with others, in a hotel, in a longterm, living outside on the street, on a [...] AM EDT documented as of this encounter Last Filed Vital Signs Vital Sign Reading Time Taken Comments Blood Pressure 172/78 05/07/2025 10:33 AM EDT Pulse 110 05/07/2025 10:33 AM EDT Temperature 36.3 C (97.4 F) 05/07/2025 10:33 AM EDT Respiratory Rate 22 05/07/2025 10:33 AM EDT Oxygen Saturation 98% 05/07/2025 10:33 AM EDT Inhaled Oxygen Concentration - - Weight 77.7 kg (171 lb 3.2 oz) 05/07/2025 10:33 AM EDT Height - - Body Mass Index 27.63 05/01/2025 10:41 AM EDT documented in this encounter Progress Notes * Bouchra Coffey - 05/07/2025 10:40 AM EDT Subjective History was provided by the patient. Elio Calles is a 70 y.o. male with past medical history of hypertension, CAD S/P CABGx3, type 2 diabetes, BPH, migraines, COPD, hx of TB s/p INH treatment and tobacco smoker who presents for evaluation of symptoms of a URI. Symptoms include cough, yellow, congestion, and chest pain. Onset of symptoms was 1 week ago, unchanged since that time. Associated negative symptoms include fever, sore throat, nausea, and vomiting. Evaluation to date: Seen 05/01/25 for hx of TB s/p INH tx, needs ID eval to consider systemic tx like DMRADs, was given referral, pt denies any appt.. Treatment to date: none. Reports multiple previous infections starting of like this and turning into pneumonia. Seen by ID in 12/[address] Desouza, treated for latent TB with INH only, no further treatment recommended. Pt with a 5 or less chance of reactivation or immunosuppression. Objective Vitals: 05/07/25 1033 BP: (!) 172/78 BP Location: Right arm Patient Position: Sitting BP Cuff Size: Adult Pulse: 110 Resp: 22 Temp: 97.4 ??F (36.3 ??C) TempSrc: Temporal SpO2: 98% Weight: 171 lb 3.2 oz (77.7 kg) Physical Exam Constitutional: Appearance: Normal appearance. HENT: Nose: Nose normal. Cardiovascular: Rate and Rhythm: Normal rate and regular rhythm. Heart sounds: Normal heart sounds. Pulmonary: Effort: Pulmonary effort is normal. Breath sounds: Transmitted upper airway sounds present. Wheezing (faint) present. Comments: Hacking cough. Musculoskeletal: Cervical back: Normal range of motion and neck supple. Lymphadenopathy: Cervical: No cervical adenopathy. Skin: General: Skin is warm and dry. Neurological: Mental Status: Mental status is at baseline. Psychiatric: Behavior: Behavior normal. No visits with results within 2 Day(s) from this visit. Latest known visit with results is: Office Visit on 03/12/2025 Component Date Value Ref Range Status Glucose Blood, POC 03/12/2025 205 (A) 60 - 200 mg/dL Final random QC Media Lot # 03/12/2025 [id number] Final Lot# Expiration Date 03/12/2025 [id number] Final Hemoglobin A1C 03/12/2025 7.3 (A) 4.0 - 5.7 % Final QC Media Lot # 03/12/2025 [id number] Final Lot# Expiration Date 03/12/2025 [id number] Final Assessment & Plan Cough productive of yellow sputum -No evidence of acute respiratory distress. Faint wheezes on exam. Suspect bronchitis vs pneumonia.No fevers. Symptoms mild. -Ordered CXR 05/07/25. -Starting abx empirically 05/07/25. -ER precautions discussed. -Seek medical attention for worsening symptoms. Orders: POCT Rapid COVID Ag Influenza A (ID NOW Rapid Molecular) Influenza B (ID NOW Rapid Molecular) XR Chest 2 Views; Future 05/07/25 1:02 PM CXR IMPRESSION: No acute cardiopulmonary abnormality. Future Appointments Date Time Provider Department Center 06/18/2025 10:15 AM Susie Cintron MD MEDICINE [facility] IBouchra, am serving as a scribe to document services personally performed by Dr. Atwood, based on the patient's response to questions by provider and providers statements to me. documented in this encounter Plan of Treatment Upcoming Encounters Date Type Department Care Team (Late st Contact Info) Description 06/18/2025 10:15 AM EDT Office Visit [facility] MEDICINE [address] [place] [address] Susie Park MD [address] [place] [address] documented as of this encounter Procedures Procedure Name Priority Date/Time Associated Diagnosis Comments XR CHEST 2 VIEWS Routine 05/07/2025 11:5 0 AM EDT Cough productive of yellow sputum POCT INFLUENZA B (ID NOW RAPID MOLECULAR) Routine 05/07/2025 11:02 AM EDT Cough productive of yellow sputum POCT INFLUENZA A (ID NOW RAPID MOLECULAR) Routine 05/07/2025 11:02 AM EDT Cough productive of yellow sputum POCT RAPID COVID ANTIGEN Routine 05/07/2025 11:02 AM EDT Cough productive of yellow sputum documented in this encounter Results * XR Chest 2 Views (05/07/2025 11:50 AM EDT) Anatomical Region Laterality Modality Chest Radiographic Luba ging 05/07/2025 11:5 0 AM EDT Narrative 05/07/2025 11:49 AM EDT [address] [address] XRay Report Signed Patient: lEio Calles MR#: [id number] 20 : 1955 Acct:[id number] Age/Sex: 70 / M ADM Date: 05/07/25 Loc: DENIZ Attending Dr: Carolina Landers MD Ordering Physician: Carolina Landers MD Date of Service: 05/07/25 Procedure(s): XR chest 2V Accession Number(s): [id number] cc: Carolina Landers MD Reason for Exam: cough x 1 weeks with COPD EXAMINATION: XR CHEST 2 VIEWS HISTORY: cough x 1 weeks with COPD COMPARISON: Comparison is made with the prior examination dated 10/16/2023. FINDINGS: PA and lateral views of the chest are submitted. The lungs are expanded and clear. There is no pleural effusion, pneumothorax, or pulmonary vascular congestion. The heart is normal in size. 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 XR/XR chest 2V IMPRESSION: No acute cardiopulmonary abnormality. Electronically signed by: Gene Houston MD 05/07/2025 11:46 AM EDT Dictated By: Gene Houston MD Signed By: <Electronically signed by Gene Houston MD in OV> 05/07/25 1146 DD/ 1150 TD/TT: 05/07/25 1139 Hammer Mill Operator: Procedure Note Donotuseinterpreter, Image - 05/07/2025 [facility] [address] [place] [address] XRay Report Signed Patient: Elio CallesMR#: [id number] 20 : 5Acct:[id number] Age/Sex: 70 / MADM Date: 05/07/25 Loc: DENIZ Attending Dr: Carolina Landers MD Ordering Physician: Carolina Landers MD Date of Service: 05/07/25 Procedure(s): XR chest 2V Accession Number(s): [id number] cc: Carolina Landers MD Reason for Exam: cough x 1 weeks with COPD EXAMINATION: XR CHEST 2 VIEWS HISTORY: cough x 1 weeks with COPD COMPARISON: Comparison is made with the prior examination dated 10/16/2023. FINDINGS: PA and lateral views of the chest are submitted. The lungs are expanded and clear. There is no pleural effusion, pneumothorax, or pulmonary vascular congestion. The heart is normal in size. 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 XR/XR chest 2V IMPRESSION: No acute cardiopulmonary abnormality. Electronically signed by: Gene Houston MD 05/07/2025 11:46 AM EDT Dictated By: Gene Houston MD Signed By: <Electronically signed by Gene Houston MD in OV> 05/07/25 1146 DD/ 1150 TD/TT: 05/07/25 1139 Hammer Mill Operator: Carolina Landers MD IMG XR PROCEDURES Final Re sult * Influenza B (ID NOW Rapid Molecular) (05/07/2025 11:02 AM EDT) [facility] Influenza B Negative Negative, Indeterminate [facility] Swab 05/07/2025 11:0 2 AM EDT Carolina Landers MD POINT OF CARE TEST ENTER/E DIT ORDERABLES Final Result [facility] [address] [place] [phone] * Influenza A (ID NOW Rapid Molecular) (05/07/2025 11:02 AM EDT) [facility] Influenza A Negative Negative, Indeterminate [facility] Swab 05/07/2025 11:0 2 AM EDT Carolina Landers MD POINT OF CARE TEST ENTER/E DIT ORDERABLES Final Result Performing Organization Address City/[facility]/ZIP Co de Phone Number [facility] [address] [place] [address] [phone] * POCT Rapid COVID Ag (05/07/2025 11:02 AM EDT) Rapid COVID Ag Negative [facility] Swab 05/07/2025 11:0 2 AM EDT us Carolina Landers MD POINT OF CARE TEST ENTER/E DIT ORDERABLES Final Result Performing Organization Address [facility] Co de Phone Number [facility] [address] [place] [address] [phone] documented in this encounter Visit Diagnoses Diagnosis Cough productive of yellow sputum- Primary documented in this encounter Additional Health Concerns Assessment Noted Time PHQ-9 Depression Total Score: 5 03/12/20 25 11:28 AM EDT documented as of this encounter Care Teams Presentation Specialist Relationship Specialty Start Date End Date Susie Park MD [address] [place] [phone] PCP - General Family Medicine 07/08/18 documented as of this encounter
--- OUTSIDE RECORDS SUMMARY | 2025-05-07 15:52 | XMS_ITS | Encounter Summary ---
Author Organization [employer] Address 75 [facility] 7t [place] [address] Care Team Providers Care Graphics Intern Name Role Phone Susie Park MD Primary Care Provide r Reason for Visit * Reason Comments Med Refill Encounter Details Date Type Department Care Team (Late st Contact Info) Description 09/17/2024 Refill [facility] CHC MED & PEDS [address] [place], [place] [phone] Susie Park MD [address] [place] [address] Social History Tobacco Use Types Packs/Day Years [...] Description 06/18/2025 10:15 AM EDT Office Visit [facility] MEDICINE [address] [place] [address] Susie Park MD [address] [place] [address] documented as of this encounter Visit Diagnoses Not on filedocumented in this encounter Additional Health Concerns Assessment Noted Time PHQ-9 Depression Total Score: 9 04/14/20 24 10:39 AM EDT documented as of this encounter Care Teams Graphics Intern Relationship Specialty Start Date End Date Susie Park MD [address] [place], [place] [phone] PCP - General Family Medicine 07/08/18 documented as of this encounter
--- OUTSIDE RECORDS SUMMARY | 2025-05-07 15:52 | XMS_ITS | Encounter Summary ---
Author Organization [employer] Address 75 [facility] 7t [place] [address] Care Team Providers Care Head Tennis Coach Name Role Phone Susie Park MD Primary Care Provide r Encounter Details Date Type Department Care Team ([facility] Contact Info) Description 03/07/2023 Orders Only [facility] MEDICINE [address] [place] [address] Jodie Mejia MD [address] [place] [address] Psoriasis (Primary Dx) Social History Tobacco Use [...] Upcoming Encounters Date Type Department Care Team ([facility] Contact Info) Description 06/18/2025 10:15 AM EDT Office Visit [facility] MEDICINE [address] [place] [address] Susie Park MD [address] [place] [address] Scheduled Orders Name Type Priority Associated Diagnoses [...] documented as of this encounter Care Teams Head Tennis Coach Relationship Specialty Start Date End Date Susie Park MD [address] [place] [phone] PCP - General Family Medicine 07/08/18 documented as of this encounter
--- OUTSIDE RECORDS SUMMARY | 2025-05-07 15:52 | XMS_ITS | Encounter Summary ---
Author Organization [employer] Address [address] [facility] [address] 7t [place] [address] Care Team Providers Care Ager Operator Name Role Phone Susie Park MD Primary Care Provide r Encounter Details Date Type Department Care Team ([facility] st Contact Info) Description 09/03/2023 Orders Only [facility] MEDICINE [address] [place], [place] [phone] Susie Park MD [address] [place], [place] [phone] Social History Tobacco Use Types Packs/Day Years [...] Description 06/18/2025 10:15 AM EDT Office Visit [facility] MEDICINE [address] [place] [address] Susie Park MD [address] [place] [address] documented as of this encounter Visit Diagnoses Not on filedocumented in this encounter Additional Health Concerns Assessment Noted Time PHQ-9 Depression Total Score: 8 10/24/19 23 11:22 AM EST documented as of this encounter Care Teams Ager Operator Relationship Specialty Start Date End Date Susie Park MD [address] [place] [phone] PCP - General Family Medicine 07/08/18 documented as of this encounter
--- OUTSIDE RECORDS SUMMARY | 2025-05-07 15:52 | XMS_ITS | Encounter Summary ---
Author Organization [employer] Address [address] [facility] 7t [place] [address] Care Team Providers Care Tile Molder Hand Name Role Phone Susie Park MD Primary Care Provide r Reason for Visit * Reason Comments Med Refill Encounter Details Date Type Department Care Team ([facility] st Contact Info) Description 09/20/[address] [facility] MEDICINE [address] [place], [place] [phone] Kacey Edwards MD [address] [place], [place] [phone] Otitis externa of both ears, unspecified chronicity, [...] Description 06/18/2025 10:15 AM EDT Office Visit [facility] MEDICINE [address] [place] [address] Susie Park MD [address] [place] [phone] documented as of this encounter Visit Diagnoses Diagnosis Otitis externa of both ears, unspecified chronicity, unspecified type documented in this encounter Additional Health Concerns Assessment Noted Time PHQ-9 Depression Total Score: 8 10/24/19 23 11:22 AM EST documented as of this encounter Care Teams Tile Molder Hand Relationship Specialty Start Date End Date Susie Park MD [address] [place] [id number] PCP - General Family Medicine 07/08/18 documented as of this encounter
--- OUTSIDE RECORDS SUMMARY | 2025-05-07 15:52 | XMS_ITS | Encounter Summary ---
Author Organization [employer] Address [address] [facility] 7t [place] [address] Care Team Providers Care Fabric Worker Fitter Name Role Phone Susie Park MD Primary Care Provide r Reason for Visit * Reason Comments Med Refill Encounter Details Date Type Department Care Team ([facility] st Contact Info) Description 09/26/2023 Refill [facility] MEDICINE [address] [place], [place] [phone] Susie Park MD [address] [place], [place] [phone] Coronary artery disease involving anvik coronary artery of anvik heart with angina pectoris (CMS/HCC) Social History [...] Description 06/18/2025 10:15 AM EDT Office Visit [facility] MEDICINE [address] [place] [address] Susie Park MD [address] [place] [address] documented as of this encounter Visit Diagnoses Diagnosis Coronary artery disease involving anvik coronary artery of anvik heart with angina pectoris (CMS/HCC) documented in this encounter Additional Health Concerns Assessment Noted Time PHQ-9 Depression Total Score: 8 10/24/19 23 11:22 AM EST documented as of this encounter Care Teams Fabric Worker Fitter Relationship Specialty Start Date End Date Susie Park MD [address] [place] [address] PCP - General Family Medicine 07/08/18 documented as of this encounter
--- OUTSIDE RECORDS SUMMARY | 2025-05-07 15:52 | XMS_ITS | Encounter Summary ---
Author Organization [employer] Address [address] [facility] 7t [place] [address] Care Team Providers Care Crane Hoist Or Lift Operator Name Role Phone Susie Park MD Primary Care Provide r Reason for Visit * Reason Onset Date Comments Nurse Triage 10/18/2023 Encounter Details Date Type Department Care Team ([facility] st Contact Info) Description 10/18/2023 Telephone [facility] MEDICINE [address] [place], [place] [phone] Susie Park MD [address] [place], [place] [phone] Nurse Triage Social History Tobacco Use Types [...] and daughter advised of disposition, agree to [facility] ER now for exam due to CP [...] Description 06/18/2025 10:15 AM EDT Office Visit [facility] MEDICINE [address] [place] [address] Susie Park MD [address] [place] [address] documented as of this encounter Visit Diagnoses Not on filedocumented in this encounter Additional Health Concerns Assessment Noted Time PHQ-9 Depression Total Score: 8 10/24/19 23 11:22 AM EST documented as of this encounter Care Teams Crane Hoist Or Lift Operator Relationship Specialty Start Date End Date Susie Park MD [address] [place] [address] PCP - General Family Medicine 07/08/18 documented as of this encounter
--- OUTSIDE RECORDS SUMMARY | 2025-05-07 15:53 | XMS_ITS | Encounter Summary ---
Author Organization [employer] Address [address] [facility] 7t [place] [address] Care Team Providers Care Welder Production Line Combination Name Role Phone Susie Park MD Primary Care Provide r Reason for Visit * Reason Comments Med Refill Encounter Details Date Type Department Care Team (Late st Contact Info) Description 01/08/2025 Refill [facility] [address] [place], [place] [phone] Susie Park MD [address] [place] [address] Social History Tobacco Use Types Packs/Day Years [...] with others, in a hotel, in a detention, living outside on the street, on a [...] Description 06/18/2025 10:15 AM EDT Office Visit [facility] MEDICINE [address] [place] [address] Susie Park MD [address] [place] [address] documented as of this encounter Visit Diagnoses Not on filedocumented in this encounter Additional Health Concerns Assessment Noted Time PHQ-9 Depression Total Score: 9 04/14/20 24 10:39 AM EDT documented as of this encounter Care Teams Welder Production Line Combination Relationship Specialty Start Date End Date Susie Park MD [address] [place], [place] [phone] PCP - General Family Medicine 07/08/18 documented as of this encounter
--- OUTSIDE RECORDS SUMMARY | 2025-05-07 15:53 | XMS_ITS | Encounter Summary ---
Author Organization [employer] Address [address] [facility] 7t [place] [address] Care Team Providers Care Appliance Service Technician Name Role Phone Susie Park MD Primary Care Provide r Encounter Details Date Type Department Care Team (Latest Contact Info) Description 05/07/2025 Travel Social History Tobacco Use Types Packs/Day Years [...] Description 06/18/2025 10:15 AM EDT Office Visit [facility] MEDICINE [address] [place] [address] Susie Park MD [address] [place] [address] documented as of this encounter Visit Diagnoses Not on filedocumented in this encounter Additional Health Concerns Assessment Noted Time PHQ-9 Depression Total Score: 5 03/12/20 25 11:28 AM EDT documented as of this encounter Care Teams Appliance Service Technician Relationship Specialty Start Date End Date Susie Park MD [address] [place] [id number] PCP - General Family Medicine 07/08/18 documented as of this encounter
--- OUTSIDE RECORDS SUMMARY | 2025-05-07 15:53 | XMS_ITS | Encounter Summary ---
Author Organization [employer] Address [address] [facility] 7t [place] [address] Care Team Providers Care Risk Control Director Name Role Phone Susie Park MD Primary Care Provide r Reason for Visit * Reason Onset Date Comments Nurse Triage 05/07/2025 Encounter Details Date Type Department Care Team ([facility] st Contact Info) Description 05/07/2025 Telephone [facility] MEDICINE [address] [place], [place] [phone] Susie Park MD [address] [place], [place] [phone] Nurse Triage Social History Tobacco Use Types [...] encounter Miscellaneous Notes * Telephone Encounter - Lesly Burns RN - 05/07/2025 9:49 AM EDT called pt to triage, spoke to pt. pt states about 1 week duration of congestion, deep loose cough without significant sputum production, chest/rib pain due to coughing, and fatigue. pt denies known exposures, known high fevers, rash, severe or sustained sob, vomiting, or other associated symptoms. pt speaking in full sentences without pausing or audible distress/wheezing. pt has an inhaler which he uses without much relief and uses appropriately. advised home care: rest, fluids, steam, humidifier, monitor temperature OTC fever reliever as needed, inhaler as needed, and call back if worsening or new concerns. no available appt to schedule and was advised could arrange instED in home evaluation, which pt declined. advised walk in center and given location, hours and wait times cautions. ptunderstands and agrees with plan. insurance verified. Protocol Used: Cough (Adult) Protocol-Based Disposition: See in Office or Video Visit Today or Tomorrow Video visit offer not recorded Positive Triage Question: * Patient wants to be seen * All higher-acuity triage questions were negative Care Advice Discussed: * Reassurance and Education - Cough * Cough Medicines * Cough Syrup With Dextromethorphan * Coughing Spells * Prevent Dehydration * Avoid Tobacco Smoke * Humidifier * Fever Medicines * Reasons To Call Back - Difficulty breathing - Cough lasts more than 3 weeks - Fever lasts more than 3 days - You become worse * Reassurance and Education - Common Cold Symptoms * Telephone Encounter - Brandy Gibbs - 05/07/2025 9:08 AM EDT Symptoms: Cough, Chest Pain - Adult Outcome: Transfer to a nurse or provider NOW! Reason: Trouble breathing The caller accepted this outcome. Contact pt at [phone] documented in this encounter Plan of Treatment Upcoming Encounters Date Type Department Care Team (Late st Contact Info) Description 06/18/2025 10:15 AM EDT Office Visit [facility] MEDICINE [address] [place] [address] Susie Park MD [address] [place] [address] documented as of this encounter Visit Diagnoses Not on filedocumented in this encounter Additional Health Concerns Assessment Noted Time PHQ-9 Depression Total Score: 5 03/12/20 25 11:28 AM EDT documented as of this encounter Care Teams Risk Control Director Relationship Specialty Start Date End Date Susie Park MD [address] [place] [address] PCP - General Family Medicine 07/08/18 documented as of this encounter
--- OUTSIDE RECORDS SUMMARY | 2025-05-07 15:53 | XMS_ITS | Clinical Summary ---
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 30 tablet 024 Active Diclofenac Sodium 1 % gelIndications:C hronic [...] FOR WHEEZING 8.5 g 2 025 Active insulin pen needle (UltiCare Micro Pen [place]) 32G x 4 mm misc USE DAILY WITH INSULIN 100 each 025 Active loratadine (Claritin) 10 MG tabletIndication s:Intrinsic eczema TAKE 1 TABLET BY MOUTH EVERY MORNING 28 tablet 5 025 Active nicotine (Nicoderm CQ) 14 MG/24HR patchIndications :Smoker Place 1 patch on the skin 1 (one) time each day at the same time. 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 90 tablet 1 Active Lantus SoloStar 100 UNIT/ML pen INJECT SUBCUTANEOUSLY 50 UNITS DAILY 15 mL 5 025 Active glucose blood (FREESTYLE LITE) test stripIndications :Type 2 diabetes mellitus with other specified complication, with long-term current use of insulin ([facility]) TEST BLOOD SUGAR TWICE A DAY 100 each Active calcipotriene (Dovonex) 0.005 % creamIndications :Psoriasis vulgaris Apply topically 2 times daily. 60 g Active azithromycin (Zithromax) 250 MG tablet Take 2 tablets (500 mg) by mouth Once per day for 1 day, THEN 1 tablet (250 mg) Once per day for 4 days. 6 tablet 025 2024 Active glucose blood (FREESTYLE LITE) test stripIndications :Type 2 diabetes mellitus with other specified complication, with long-term current use of insulin ([facility]) TEST BLOOD SUGAR TWICE A DAY 100 each 11 025 2024 Discontinued(R eorder (will not trigger notification to Pharmacy)) betamethasone, augmented, (Diprolene) 0.05 % ointmentIndicati ons:Psoriasis vulgaris Apply topically 2 times daily. 45 g 025 2024 Discontinued(S diallo effects) calcipotriene (Dovonex) 0.005 % creamIndications :Psoriasis vulgaris [...] (08/31/2022 9:40 PM EST): Patient to call [facility] to schedule abd US, a VM had [...] knee 08/22/2022 Coronary artery disease invo lving hoonah coronary artery of hoonah heart with angina pectoris 08/22/2022 Assessment & [...] Encounters Date Type Department Care Team Description 05/07/2025 10:40 AM EDT Office Visit [facility] [address] [place] [phone] Carolina Landers MD Cough productive of yellow sputum (Primary Dx) 05/07/2025 Results Follow-Up [facility] [address] [address] Carolina Landers MD XR Chest 2 Views 05/07/[address] [address] Susie Park MD telephone call 05/07/2025 Travel 05/07/[address] [address] Susie Park MD Nurse Triage 05/01/2025 11:00 AM EDT Office Visit [address] [address] Chad Mello MD Psoriasis vulgaris (Primary Dx); LTBI (latent tuberculosis infection) 05/01/2025 Travel 04/29/2025 Refill [facility] [address] [place] [address] Susie Park MD Type 2 diabetes mellitus with other specified complication, with long-term current use of insulin ([facility]) 04/28/2025 Orders Only GENERIC EXTERNAL DATA DEPARTMENT Provider, Generic External Data 04/09/2025 Telephone [facility] [address] [place] [address] Susie Park MD OCT RECALL 04/06/2025 Refill [facility] [address] [place] [address] Susie Park MD 04/01/2025 Refill [facility] [address] [place] [address] Ceci Lezama, INSPECTOR PLATING Primary osteoarthritis of both knees 03/13/[address] [address] Susie Park MD 03/12/2025 11:30 AM EDT Office Visit [address] [place] [address] Susie Park MD Psoriasis (Primary Dx); Type 2 diabetes mellitus with other specified complication, with long-term current use of insulin ([facility]); Forgetfulness; Dietary counseling; Exercise counseling 03/12/[address] [address] Susie Park MD telephone call 03/12/2025 Travel 03/06/2025 Refill [facility] [address] [place], [place] [phone] Susie Park MD 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 ([facility]) 02/20/[address] [address] Susie Park MD telephone call 02/04/2025 Refill [facility] [address] [place], [place] [phone] Susie Park MD Primary osteoarthritis of both knees from Last 3 Months Immunizations Immunization Administration [...] 3.2 oz) 05/07/2025 10:33 AM EDT Height 167.6 cm (5' 6 ) 05/01/2025 10:41 AM EDT Body Mass Index 27.63 05/01/2025 10:41 AM EDT Plan of Treatment Upcoming Encounters Date Type Department Care Team (Late st Contact Info) Description 06/18/2025 10:15 AM EDT Office Visit [facility] MEDICINE [address] [place] [address] Susie Park MD [address] [place], [place] [phone] Health Maintenance Due Date Last Done Comments CT Colonography 1955 FIT DNA/Cologuard 1955 FIT 1955 FOBT 1955 Sigmoidoscopy 1955 RSV Patients and Patients Aged 60 years or older (1 - Risk 60-74 years 1-dose series) 2015 Diabetes: Urine Protein Screening 09/15/2021 09/15/2020 Zoster Vaccines (2 of 2) 04/16/2023 02/19/2023 Eye Exam 05/15/2023 05/15/2022 Diabetes: Foot Exam 12/09/2023 12/08/2022, COVID-19 Vaccine ( season) 2025 05/16/2024, 10/24/2022, 07/15/2021, Additional history exists Influenza Vaccine (#1) 2025 04/23/2012, 2010 Diabetes: Hemoglobin A1C 06/12/2025 025, 12/11/2024, 07/15/2024, Additional history exists Alcohol/Substance Use Screening 07/15/2025 07/15/2024 SDOH Screening 07/15/2025 07/15/2024 Lipid Panel 12/26/2025 12/26/2024, 03/27, 04/14/2024, Additional history exists Depression Screening 03/12/2026 03/12/2025, 03/12/20 25 Tobacco Screening 05/07/2026 05/07/2025 Colonoscopy 04/12/2027 04/12/2022 Colorectal Cancer Screening 04/12/2027 [...] AM EDT Cough productive of yellow sputum CYTOPATH-CELL ENHANCED Routine 04/28/2025 1:06 PM EDT POCT GLUCOSE Routine 03/12/2025 11:33 AM EDT Type 2 diabetes mellitus with other specified complication, with long-term current use of insulin (CMS/HCC) POCT GLYCATED HEMOGLOBIN, TOTAL Routine 03/12/2025 11:32 AM EDT Type 2 diabetes mellitus with other specified complication, with long-term current use of insulin (CMS/HCC) LIPID PANEL, STANDARD Routine 12/26/2024 10:38 AM EDT HEPATITIS C ANTIBODY REFLEX Routine 03/12/2023 11:45 AM EDT HM COLONOSCOPY Routine 04/12/2022 9:53 PM EDT ALBUMIN, RANDOM URINE W/CREATININE Routine 09/15/2020 8:43 AM EST from Last 3 Months or Most Recently Relevant to Health Maintenance Results * XR Chest 2 Views (05/07/2025 11:50 AM EDT) Anatomical Region Laterality Modality Chest Radiographic Luba ging 05/07/2025 11:5 0 AM EDT Narrative 05/07/2025 11:49 [place] [address] XRay Report Signed Patient: Elio Calles MR#: [id number] [birth year] : 1955 Acct:[id number] Age/Sex: 70 / M ADM Date: 05/07/25 Loc: [facility] Attending Dr: Carolina Landers MD Ordering Physician: Carolina Landers MD Date of Service: 05/07/25 Procedure(s): XR chest 2V Accession Number(s): [id number] cc: Carolina Landers MD Reason for Exam: [...] Gene Houston MD 05/07/2025 11:46 AM EDT RP Dictated By: Gene Houston MD Signed By: <Electronically signed by Gene Houston MD in OV> 05/07/25 1146 DD/ 1150 TD/TT: 05/07/25 1139 Novelty Dipper: Procedure Note Donotuseinterpreter, Image - 05/07/2025 [place] [address] XRay Report Signed Patient: Jerome Calles#: [id number] [birth year] : 5Acct:[id number] Age/Sex: 70 / MADM Date: 05/07/25 [facility]: Carolina Landers MD Ordering Physician: Carolina Landers MD Date of Service: 05/07/25 Procedure(s): XR chest 2V Accession Number(s): [id number] cc: Carolina Landers MD Reason for Exam: [...] Gene Houston MD 05/07/2025 11:46 AM EDT RP Dictated By: Gene Houston MD Signed By: <Electronically signed by Gene Houston MD in OV> 05/07/25 1146 DD/ 1150 TD/TT: 05/07/25 1139 Novelty Dipper: Carolina Landers MD IMG XR PROCEDURES Final Re sult * Influenza B (ID NOW Rapid Molecular) (05/07/2025 11:02 AM EDT) [facility] Influenza B Negative Negative, Indeterminate [facility] Swab 05/07/2025 11:0 2 AM EDT Carolina Landers MD POINT OF CARE TEST ENTER/E DIT ORDERABLES Final Result Performing Organization Address [facility]/ZIP Co de Phone Number [facility] [address] [place] [phone] * Influenza A (ID NOW Rapid Molecular) (05/07/2025 11:02 AM EDT) [facility] Influenza A Negative Negative, Indeterminate [facility] Swab 05/07/2025 11:0 2 AM EDT Carolina Landers MD POINT OF CARE TEST ENTER/E DIT ORDERABLES Final Result Performing Organization Address [facility] Co de Phone Number [facility] [address] [place] [phone] * POCT Rapid COVID Ag (05/07/2025 11:02 AM EDT) [facility] Rapid COVID Ag Negative [facility] Swab 05/07/2025 11:0 2 AM EDT Carolina Landers MD POINT OF CARE TEST ENTER/E DIT ORDERABLES Final Result Performing Organization Address [facility] Co de Phone Number [facility] [address] [place] [phone] * Cytopath-cell enhanced (04/28/2025 1:06 PM EDT) 04/28/2025 1:06 PM EDT 04/29/2025 9:52 AM EDT Narrative [facility] - 04/29/2025 4:11 PM EDT ----- ------- Name: Elio Calles Age/Sex: 70/M : 1955 Unit#: [id number] Attend Dr: Ana Langley [facility] Re04/28/25 Status: DEP [facility] Disch: ----- ------- SPEC : [id number] RECD: 04/29/25 STATUS: NAMAN SIERRA NUM: [id number] JANI: 04/28/25-1306 [facility] DR: Ana Langley [facility] ENTERED: 04/29/25-1011 SP TYPE: Cytology OT DR: Susie Park MD ORDERED: Cyto-enhanced Diagnosis Urine: Rare atypical urothelial cells. Comment: Examination of a monolayer preparation slide shows scattered benign squamous cells, occasional benign urothelial cells, and rare atypical urothelial cells with increased nuclear:cytoplasmic ratios. There are also occasional inflammatory cells and red blood cells present. Clinical History Microscopic hematuria Abnormal cytology Material Received Urine Gross Description Received is 50 cc of cloudy yellow fluid from which a ThinPrep slide is prepared. IHC S/NG Disclaimer NOTE: Unless otherwise stated, all tissue is formalin-fixed and paraffin-embedded. Some or all of the immunohistochemical tests reported herein may have been developed and their performance characteristics determined by [facility]. They have not been cleared or approved by the U.S. Food and Drug Administration (FDA). However, the FDA has determined that such clearance or approval is not necessary. This laboratory is certified under the Clinical Laboratory Improvement Amendments of 1988 (CLIA) as qualified to perform high complexity clinical laboratory testing. Copies To: Susie Park MD [address] [address] Ana Langley [facility] [address] [place] [address] [address] [place], [place] [phone] CONTINUED ON NEXT PAGE ----- ------- Name: Shawn Callesiberto Age/Sex: 70/M : 1955 Unit#: [id number] Attend Dr: Aan Langley [facility] Re04/28/25 Status: [facility] REF Location: [facility] Disch: ----- ------- SPEC : [id number] RECD: 04/29/25 STATUS: NAMAN SIERRA NUM: [id number] JANI: 04/28/25-1306 [facility] DR: Ana Langley [facility] ENTERED: 04/29/25-101 SP TYPE: Cytology OTHR DR: Susie Park MD ORDERED: Cyto-enhanced Copies To: (Continued) [email or web address] ----- ------- Signed (signature on file) Jessica Rishi 04/29/25 1611 ----- ------- END OF REPORT Generic External Data Provider LAB CYTOLOGY AMIRAH CLAY Final Result [facility] [address] [place] [phone] * (ABNORMAL) POCT Glucose (03/12/2025 11:33 AM EDT) [facility] Glucose Blood, POC 205(A) 60 - 200 mg/dL Comment:random QC Media Lot # [id number] Lot# Expiration Date [id number] Blood Capillary blood specimen / Unknown 03/12/2025 11:33 AM EDT Susie Cintron MD POINT OF CARE TEST EN TER/EDIT ORDERABLES Final Result * (ABNORMAL) POCT HGB A1C (03/12/2025 11:32 AM EDT) [facility] Hemoglobin A1C 7.3(A) 4.0 - 5.7 % QC Media Lot # [id number] Lot# Expiration Date [id number] Blood 03/12/2025 11:3 2 AM EDT us Susie Cintron MD POINT OF CARE TEST EN TER/EDIT ORDERABLES Final Result * (ABNORMAL) Lipid Panel, Standard (12/26/2024 10:38 AM EDT) Triglycerides 124 <150 mg/dL [facility] Comment:Desirable Triglyceri de: less than 150 mg/dLBorderline High Triglyceride 150-199 mg/dLHigh Triglyceride: 200-499 mg/dLVery High Triglyceride: greater than or equal to 5OO mg/dL Cholesterol 205(H) <200 mg/dL [facility] Comment:Desirable Cholestero l: less than 200 mg/dLBorderline High Cholesterol: 200-239 mg/dLHigh Cholesterol: greater than 239 mg/dL LDL Cholesterol Calculated 138(H) <100 mg/dL [facility] Comment:Desirable LDL: less than 100 mg/dLNear Optimal/Above Optimal LDL: 110- 129 mg/dLBorderline High LDL: 130-159 mg/dLHigh LDL: 160-189 mg/dLVery High LDL: greater than or equal to 190 mg/dL HDL Cholesterol 43 >40 mg/dL [facility] Comment:Desirable HDL: great er than 40 mg/dL Note: This HDL assay may give artificially low results in patients with liver disease. 12/26/2024 10:3 8 AM EDT 12/26/2024 11:08 AM EDT us Generic External Data Provider LAB BLOOD ORDERAB LES Final Result [facility] [address] [place] [phone] * Hepatitis C Antibody Reflex (03/12/2023 11:45 AM EDT) Hepatitis C Antibody Nonreactive Nonreactive [facility] Comment:Antibodies to HCV no t detected; does not exclude early acuteHCV infection. 03/12/2023 11:4 5 AM EDT 03/12/2023 1:40 PM EDT us [facility] External Provider LAB BLO OD ORDERABLES Final Result [facility] [address] [place] [phone] * Hm Colonoscopy (04/12/2022 9:53 PM EDT) us Historical [...] Final Result [facility] [address] from Last 3 Months or Most Recently Relevant to Health Maintenance [place] [phone] [employer] OPTIONS (HMO D-SNP) [employer]UR[employer] [id number] Care Teams Irrigation Service Technician Relationship Specialty Start Date End Date Susie Park MD [address] [place] [phone] PCP - General Family Medicine 07/08/18
--- OUTSIDE RECORDS SUMMARY | 2025-05-07 15:53 | XMS_ITS | Encounter Summary ---
Author Organization [email or web address] Address [address] [facility] 7t [place] [address] Care Team Providers Care Emt Basic Name Role Phone Susie Park MD Primary Care Provide r Reason for Visit * Reason Comments Med Refill Encounter Details Date Type Department Care Team (Late st Contact Info) Description 01/12/2025 Refill [facility] [address] [place], [place] [phone] Susie Park MD [address] [place] [address] Social History Tobacco Use Types Packs/Day Years [...] Description 06/18/2025 10:15 AM EDT Office Visit [facility] MED[facility] [address] [place] [address] Susie Park MD [address] [place] [address] documented as of this encounter Visit Diagnoses Not on filedocumented in this encounter Additional Health Concerns Assessment Noted Time PHQ-9 Depression Total Score: 9 04/14/20 24 10:39 AM EDT documented as of this encounter Care Teams Emt Basic Relationship Specialty Start Date End Date Susie Park MD [address] [place], [place] [phone] PCP - General Family Medicine 07/08/18 documented as of this encounter
--- OUTSIDE RECORDS SUMMARY | 2025-05-07 15:53 | XMS_ITS | Encounter Summary ---
Author Organization [employer] Address [address] [facility] 7t [place] [address] Care Team Providers Care Principal Scientist Name Role Phone Susie Park MD Primary Care Provide r Encounter Details Date Type Department Care Team ([facility] Contact Info) Description 08/30/2022 Abstract [facility] MEDICINE [address] [place] [address] [phone] Susie Park MD [address] [place] [phone] Social History Tobacco Use Types Packs/Day Years [...] Upcoming Encounters Date Type Department Care Team ([facility] Contact Info) Description 06/18/2025 10:15 AM EDT Office Visit [facility] MEDIC[facility] [address] [place] [address] [phone] Susie Park MD [address] [place], [place] [phone] documented as of this encounter Visit Diagnoses Not on filedocumented in this encounter Additional Health Concerns Assessment Noted Time PHQ-9 Depression Total Score: 17 022 9:43 AM EST documented as of this encounter Care Teams Principal Scientist Relationship Specialty Start Date End Date Susie Park MD [address] [place] [address] PCP - General Family Medicine 07/08/18 documented as of this encounter
--- OUTSIDE RECORDS SUMMARY | 2025-05-07 15:53 | XMS_ITS | Encounter Summary ---
Author Organization [employer] Address [address] [facility] 7t [place] [address] Care Team Providers Care Customizer Name Role Phone Susie Park MD Primary Care Provide r Reason for Visit * Reason Comments Med Refill Encounter Details Date Type Department Care Team (Late st Contact Info) Description 10/15/2024 Refill [facility] & PEDS [address] [place], [place] [phone] Susie Park MD [address] [place] [address] Social History Tobacco Use Types Packs/Day Years [...] Description 06/18/2025 10:15 AM EDT Office Visit [facility] MEDICINE [address] [place] [address] Susie Park MD [address] [place] [address] documented as of this encounter Visit Diagnoses Not on filedocumented in this encounter Additional Health Concerns Assessment Noted Time PHQ-9 Depression Total Score: 9 04/14/20 24 10:39 AM EDT documented as of this encounter Care Teams Customizer Relationship Specialty Start Date End Date Susie Park MD [address] [place], [place] [phone] PCP - General Family Medicine 07/08/18 documented as of this encounter
--- OUTSIDE RECORDS SUMMARY | 2025-05-07 15:53 | XMS_ITS | Encounter Summary ---
Author Organization [employer] Address [address] [facility] [address] [place] [address] Care Team Providers Care Video Production Intern Name Role Phone Susie Park MD Primary Care Provide r Encounter Details Date Type Department Care Team ([facility] st Contact Info) Description 05/07/2025 Results Follow-Up [facility] [address] [place] [address] Carolina Landers MD [address] [place] [address] XR Chest 2 Views Social History Tobacco Use Types Packs/Day Years [...] encounter Miscellaneous Notes * Telephone Encounter - Krystina Smith RN - 05/07/2025 1:30 PM EDT T/C to pt. Advised of message from [facility] provider re: CXR results. Reviewed poc from appt today. Pt verbalized understanding and reports agreement with plan. * Telephone Encounter - Krystina Smith RN - 05/07/2025 1:26 PM EDT ----- Message from Carolina Landers MD sent at 05/07/2025 1:03 PM EDT ----- Please let Mr. Calles know that CXR had no pneumonia. Continue current plan. Thank you. ----- Message ----- From: Interface, Ris Results In Sent: 05/07/2025 11:50 AM EDT To: Carolina Landers MD documented in this encounter Plan of Treatment Upcoming Encounters Date Type Department Care Team (Late st Contact Info) Description 06/18/2025 10:15 AM EDT Office Visit [facility] MEDICINE [address] [place] [address] Susie Park MD [address] [place] [address] documented as of this encounter Visit Diagnoses Not on filedocumented in this encounter Additional Health Concerns Assessment Noted Time PHQ-9 Depression Total Score: 5 03/12/20 25 11:28 AM EDT documented as of this encounter Care Teams Video Production Intern Relationship Specialty Start Date End Date Susie Park MD [address] [place] [phone] PCP - General Family Medicine 07/08/18 documented as of this encounter
--- OUTSIDE RECORDS SUMMARY | 2025-05-07 15:53 | XMS_ITS | Encounter Summary ---
Author Organization [employer] Address [address] [facility] 7t [place] [address] Care Team Providers Care Cell Reliner Name Role Phone Susie Park MD Primary Care Provide r Reason for Visit * Reason Onset Date Comments telephone call 05/07/2025 Encounter Details Date Type Department Care Team ([facility] st Contact Info) Description 05/07/2025 Telephone [facility] MEDICINE [address] [place], [place] [phone] Susie Park MD [address] [place], [place] [phone] telephone call Social History Tobacco Use Types Packs/Day Years [...] encounter Miscellaneous Notes * Telephone Encounter - Tonia Dubose - 05/07/2025 11:46 AM EDT Pt walked in stating his prescription Dovonex cream there waiting for the provider to sign a form for it. documented in this encounter Plan of Treatment Upcoming Encounters Date Type Department Care Team (Late st Contact Info) Description 06/18/2025 10:15 AM EDT Office Visit [facility] MEDICINE [address] [place], [place] [phone] Susie Park MD [address] [place] [address] documented as of this encounter Visit Diagnoses Not on filedocumented in this encounter Additional Health Concerns Assessment Noted Time PHQ-9 Depression Total Score: 5 03/12/20 25 11:28 AM EDT documented as of this encounter Care Teams Cell Reliner Relationship Specialty Start Date End Date Susie Park MD [address] [place], [place] [phone] PCP - General Family Medicine 07/08/18 documented as of this encounter
--- OUTSIDE RECORDS SUMMARY | 2025-05-07 15:53 | XMS_ITS | Encounter Summary ---
Author Organization [employer] Address [address] [facility] 7t [place] [address] Care Team Providers Care Support Worker Name Role Phone Susie Park MD Primary Care Provide r Reason for Visit * Reason Comments Med Refill Encounter Details Date Type Department Care Team (Late st Contact Info) Description 08/19/2024 Refill [facility]S [address] [place], [place] [phone] Susie Park MD [address] [place] [address] Social History Tobacco Use Types Packs/Day Years [...] with others, in a hotel, in a usp, living outside on the street, on a [...] [facility] MED[facility] [address] [place] [address] Susie Park MD [address] [place] [address] documented as of this encounter Visit Diagnoses Not on filedocumented in this encounter Additional Health Concerns Assessment Noted Time PHQ-9 Depression Total Score: 9 04/14/20 24 10:39 AM EDT documented as of this encounter Care Teams Support Worker Relationship Specialty Start Date End Date Susie Park MD [address] [place], [place] [phone] PCP - General Family Medicine 07/08/18 documented as of this encounter
== END 2025-05-07 11:31 | disposition home or self-care (01) ==
LOC: HO.HHCX 11:30
PROVIDERS: Visit Provider Family Medicine
DX: R05.8 Other specified cough (principal)
CPT/HCPCS: 71046

== ENCOUNTER → 2025-05-07 11:31 | Outpatient (BNV) | payer OTHER, SELFPAY | PROVIDERS: Visit Provider Radiology Diagnostic Radiology | DX: R05.9 Cough, unspecified (principal) | CPT/HCPCS: 71046 ==

== ENCOUNTER 2025-06-12 09:47 | Outpatient (REF) | payer OTHER, SELFPAY ==
--- OUTSIDE RECORDS SUMMARY | 2025-06-12 11:19 | XMS_ITS | Encounter Summary ---
Author Organization [employer] Address [address] [facility] 7t [place] [address] Care Team Providers Care Last Waxer Name Role Phone Susie Park MD Primary Care Provide r Encounter Details Date Type Department Care Team ([facility] Contact Info) Description 06/12/2025 Orders Only GENERIC EXTERNAL DATA DEPARTMENT Provider, [...] 10:15 AM EDT Office Visit [facility] MEDICINE [address] [place] [phone] Susie Park MD [address] [place] [address] documented as of this encounter Procedures Procedure Name Priority Date/Time Associated Diagnosis Comments HEMOGLOBIN A1C Routine 06/12/2025 10:32 AM EDT documented in this encounter Results * (ABNORMAL) Hemoglobin A1c (06/12/2025 10:32 AM EDT) Hemoglobin A1c 7.0(H) <6.0 % [facility] Comment:Hemoglobin A1C Refer ence Range Adults: 4.8 - 6.0 % Non diabetic: < 6.0 % Goal: < 7.0 %Additional Action Suggested: > 8.0 %Note: Hemoglobin A1c results are invalid for patients with abnormal amounts of HbF. Blood transfusions may impact the HbA1c concentration in the patient sample. Estimated Average Glucose 154 mg/dL [facility] Comment:eAG = Estimated ave rage glucose which is %A1C expressed asaverage glucose, using the formula of the S8U-NeezvruIcluzao Glucose study (ADAG), Diabetes Care, Vol.31,#8,2007 06/12/2025 10:3 2 AM EDT 06/12/2025 10:32 AM EDT us Generic External Data Provider LAB BLOOD ORDERAB LES Final Result [facility] [address] [place] [phone] documented in this encounter Visit Diagnoses Not on filedocumented in this encounter Additional Health Concerns Assessment Noted Time PHQ-9 Depression Total Score: 5 03/12/20 25 11:28 AM EDT documented as of this encounter Care Teams Last Waxer Relationship Specialty Start Date End Date Susie Park MD [address] [place] [address] PCP - General Family Medicine 07/08/18 documented as of this encounter
--- OUTSIDE RECORDS SUMMARY | 2025-06-12 11:19 | XMS_ITS | Encounter Summary ---
Author Organization [employer] Address [address] [facility] 7t [place] [address] Care Team Providers Care Button Decorating Machine Operator Name Role Phone Susie Park MD Primary Care Provide r Reason for Visit * Reason Comments Med Refill Encounter Details Date Type Department Care Team (Late st Contact Info) Description 08/19/2024 Refill [facility] MED & PEDS [address] [place], [place] [phone] Susie Park MD [address] [place] [address] Social History Tobacco Use Types Packs/Day Years [...] Description 06/18/2025 10:15 AM EDT Office Visit [facility] MEDICINE [address] [place] [address] Susie Park MD [address] [place] [address] documented as of this encounter Visit Diagnoses Not on filedocumented in this encounter Additional Health Concerns Assessment Noted Time PHQ-9 Depression Total Score: 9 04/14/20 24 10:39 AM EDT documented as of this encounter Care Teams Button Decorating Machine Operator Relationship Specialty Start Date End Date Susie Park MD [address] [place], [place] [phone] PCP - General Family Medicine 07/08/18 documented as of this encounter
--- OUTSIDE RECORDS SUMMARY | 2025-06-12 11:19 | XMS_ITS | Encounter Summary ---
Author Organization [employer] Address [address] [facility] 7t [place] [address] Care Team Providers Care Change House Attendant Name Role Phone Susie Park MD Primary Care Provide r Encounter Details Date Type Department Care Team ([facility] st Contact Info) Description 09/03/2023 Orders Only [facility] MEDICINE [address] [place], [place] [phone] Susie Park MD [address] [place], [place] [phone] Social History Tobacco Use Types Packs/Day Years [...] 10:15 AM EDT Office Visit [facility] MEDICINE [address] [place] [phone] Susie Park MD [address] [place] [phone] documented as of this encounter Visit Diagnoses Not on filedocumented in this encounter Additional Health Concerns Assessment Noted Time PHQ-9 Depression Total Score: 8 10/24/19 23 11:22 AM EST documented as of this encounter Care Teams Change House Attendant Relationship Specialty Start Date End Date Susie Park MD [address] [place] [phone] PCP - General Family Medicine 07/08/18 documented as of this encounter
--- OUTSIDE RECORDS SUMMARY | 2025-06-12 11:19 | XMS_ITS | Encounter Summary ---
Author Organization [employer] Address [address] [facility] 7t [place] [address] Care Team Providers Care Process Control Tech Name Role Phone Susie Park MD Primary Care Provide r Reason for Visit * Reason Comments Med Refill Encounter Details Date Type Department Care Team (Late st Contact Info) Description 01/12/2025 Refill [facility] CH[facility] MED & PEDS [address] [place], [place] [phone] Susie Park MD [address] [place] [address] Social History Tobacco Use Types Packs/Day Years [...] Description 06/18/2025 10:15 AM EDT Office Visit [facility] MEDICINE [address] [place] [address] Susie Park MD [address] [place] [address] documented as of this encounter Visit Diagnoses Not on filedocumented in this encounter Additional Health Concerns Assessment Noted Time PHQ-9 Depression Total Score: 9 04/14/20 24 10:39 AM EDT documented as of this encounter Care Teams Process Control Tech Relationship Specialty Start Date End Date Susie Park MD [address] [place], [place] [phone] PCP - General Family Medicine 07/08/18 documented as of this encounter
--- OUTSIDE RECORDS SUMMARY | 2025-06-12 11:19 | XMS_ITS | Encounter Summary ---
Author Organization [employer] Address [address] [facility] 7t [place] [address] Care Team Providers Care Medical Underwriter Name Role Phone Susie Park MD Primary Care Provide r Encounter Details Date Type Department Care Team ([facility] Contact Info) Description 08/30/2022 Abstract [facility] MEDICINE [address] [place] [address] [phone] Susie Park MD [address] [place] [address] [phone] Social History Tobacco Use Types Packs/Day Years [...] Upcoming Encounters Date Type Department Care Team ([facility] Contact Info) Description 06/18/2025 10:15 AM EDT Office Visit [facility] MEDICINE [address] [place] [address] [phone] Susie Park MD [address] [place], [place] [phone] documented as of this encounter Visit Diagnoses Not on filedocumented in this encounter Additional Health Concerns Assessment Noted Time PHQ-9 Depression Total Score: 17 022 9:43 AM EST documented as of this encounter Care Teams Medical Underwriter Relationship Specialty Start Date End Date Susie Park MD [address] [place] [address] PCP - General Family Medicine 07/08/18 documented as of this encounter
--- OUTSIDE RECORDS SUMMARY | 2025-06-12 11:19 | XMS_ITS | Encounter Summary ---
Author Organization [employer] Address [address] [facility] 7t [place] [address] Care Team Providers Care Chain Mender Name Role Phone Susie Park MD Primary Care Provide r Reason for Visit * Reason Onset Date Comments Nurse Triage 10/18/2023 Encounter Details Date Type Department Care Team ([facility] st Contact Info) Description 10/18/2023 Telephone [facility] MEDICINE [address] [place], [place] [phone] Susie Park MD [address] [place], [place] [phone] Nurse Triage Social History Tobacco Use Types [...] and daughter advised of disposition, agree to [facility] now for exam due to CP [...] Visit [facility] MEDICINE [address] [place] [address] Susie Park MD [address] [place] [address] documented as of this encounter Visit Diagnoses Not on filedocumented in this encounter Additional Health Concerns Assessment Noted Time PHQ-9 Depression Total Score: 8 10/24/19 23 11:22 AM EST documented as of this encounter Care Teams Chain Mender Relationship Specialty Start Date End Date Susie Park MD [address] [place] [address] PCP - General Family Medicine 07/08/18 documented as of this encounter
--- OUTSIDE RECORDS SUMMARY | 2025-06-12 11:19 | XMS_ITS | Encounter Summary ---
Author Organization [employer] Address [address] [facility] 7t [place] [address] Care Team Providers Care Bond Underwriter Name Role Phone Susie Park MD Primary Care Provide r Reason for Visit * Reason Comments Med Refill Encounter Details Date Type Department Care Team (Late st Contact Info) Description 10/15/2024 Refill [facility] CH[facility] MED & PEDS [address] [place], [place] [phone] Susie Park MD [address] [place] [address] Social History Tobacco Use Types Packs/Day Years [...] with others, in a hotel, in a chcf, living outside on the street, on a [...] Description 06/18/2025 10:15 AM EDT Office Visit [facility] MEDICINE [address] [place] [address] Susie Park MD [address] [place] [address] documented as of this encounter Visit Diagnoses Not on filedocumented in this encounter Additional Health Concerns Assessment Noted Time PHQ-9 Depression Total Score: 9 04/14/20 24 10:39 AM EDT documented as of this encounter Care Teams Bond Underwriter Relationship Specialty Start Date End Date Susie Park MD [address] [place], [place] [phone] PCP - General Family Medicine 07/08/18 documented as of this encounter
--- OUTSIDE RECORDS SUMMARY | 2025-06-12 11:19 | XMS_ITS | Encounter Summary ---
Author Organization [employer] Address 75 [facility] 7t [place] [address] Care Team Providers Care Accounts Payable Lead Name Role Phone Susie Park MD Primary Care Provide r Reason for Visit * Reason Comments Med Refill Encounter Details Date Type Department Care Team ([facility] st Contact Info) Description 09/20/2023 Refill [facility] MEDICINE [address] [place], [place] [phone] Kacey Edwards MD [address] [place], [place] [phone] Otitis externa of both ears, unspecified chronicity, [...] Description 06/18/2025 10:15 AM EDT Office Visit [facility] MEDICINE [address] [place] [address] Susie Park MD [address] [place] [phone] documented as of this encounter Visit Diagnoses Diagnosis Otitis externa of both ears, unspecified chronicity, unspecified type documented in this encounter Additional Health Concerns Assessment Noted Time PHQ-9 Depression Total Score: 8 10/24/19 23 11:22 AM EST documented as of this encounter Care Teams Accounts Payable Lead Relationship Specialty Start Date End Date Susie Park MD [address] [place] [phone] PCP - General Family Medicine 07/08/18 documented as of this encounter
--- OUTSIDE RECORDS SUMMARY | 2025-06-12 11:19 | XMS_ITS | Encounter Summary ---
Author Organization [employer] Address [address] [facility] 7t [place] [address] Care Team Providers Care Staff Mine Warfare Officer Name Role Phone Susie Park MD Primary Care Provide r Reason for Visit * Reason Comments Med Refill Encounter Details Date Type Department Care Team (Late st Contact Info) Description 09/17/2024 Refill [facility] CH[facility] MED & PEDS [address] [place], [place] [phone] Susie Park MD [address] [place] [address] Social History Tobacco Use Types Packs/Day Years [...] Description 06/18/2025 10:15 AM EDT Office Visit [facility] MEDICINE [address] [place] [address] Susie Park MD [address] [place] [address] documented as of this encounter Visit Diagnoses Not on filedocumented in this encounter Additional Health Concerns Assessment Noted Time PHQ-9 Depression Total Score: 9 04/14/20 24 10:39 AM EDT documented as of this encounter Care Teams Staff Mine Warfare Officer Relationship Specialty Start Date End Date Susie Park MD [address] [place], [place] [phone] PCP - General Family Medicine 07/08/18 documented as of this encounter
--- OUTSIDE RECORDS SUMMARY | 2025-06-12 11:19 | XMS_ITS | Encounter Summary ---
Author Organization [employer] Address 75 [facility] 7t [place] [address] Care Team Providers Care Rough Rounder Machine Name Role Phone Susie Park MD Primary Care Provide r Encounter Details Date Type Department Care Team ([facility] Contact Info) Description 03/07/2023 Orders Only [facility] MEDICINE [address] [place] [phone] Jodie Mejia MD [address] [place] [address] Psoriasis (Primary Dx) Social History Tobacco Use [...] Upcoming Encounters Date Type Department Care Team ([facility] Contact Info) Description 06/18/2025 10:15 AM EDT Office Visit [facility] MEDICINE [address] [place] [address] Susie Park MD [address] [place] [address] Scheduled Orders Name Type Priority Associated Diagnoses [...] documented as of this encounter Care Teams Rough Rounder Machine Relationship Specialty Start Date End Date Susie Park MD [address] [place] [phone] PCP - General Family Medicine 07/08/18 documented as of this encounter
--- OUTSIDE RECORDS SUMMARY | 2025-06-12 11:19 | XMS_ITS | Encounter Summary ---
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) Social History [...] Description 06/18/2025 10:15 AM EDT Office Visit [facility] MEDICINE [address] [place] [address] Susie Park MD [address] [place] [address] documented as of this encounter Visit Diagnoses Diagnosis 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
--- OUTSIDE RECORDS SUMMARY | 2025-06-12 11:19 | XMS_ITS | Encounter Summary ---
Author Organization [employer] Address [address] [facility] 7t [place] [address] Care Team Providers Care Health Information Administrator Name Role Phone Susie Park MD Primary Care Provide r Reason for Visit * Reason Comments Med Refill Encounter Details Date Type Department Care Team (Late st Contact Info) Description 01/08/2025 Refill [facility] CHC MED & PEDS [address] [place], [place] [phone] Susie Park MD [address] [place] [address] Social History Tobacco Use Types Packs/Day Years [...] others, in a hotel, in a senior care, living outside on the street, on a [...] Description 06/18/2025 10:15 AM EDT Office Visit [facility] MEDICINE [address] [place] [address] Susie Park MD [address] [place] [address] documented as of this encounter Visit Diagnoses Not on filedocumented in this encounter Additional Health Concerns Assessment Noted Time PHQ-9 Depression Total Score: 9 04/14/20 24 10:39 AM EDT documented as of this encounter Care Teams Health Information Administrator Relationship Specialty Start Date End Date Susie Park MD [address] [place], [place] [phone] PCP - General Family Medicine 07/08/18 documented as of this encounter
--- OUTSIDE RECORDS SUMMARY | 2025-06-12 11:19 | XMS_ITS | Clinical Summary ---
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 60 g 025 Active acetaminophen (Tylenol 8 Hour) 650 MG ER tabletIndication s:Primary osteoarthritis of both knees TAKE 1 TO 2 TABLETS BY MOUTH EVERY TWELVE HOURS NEEDED 84 tablet 1 025 Active albuterol 108 (90 Base) MCG/ACT inhaler INHALE 2 PUFFS BY MOUTH EVERY SIX HOURS NEEDED FOR WHEEZING 8.5 g 2 025 Active albuterol 108 (90 Base) MCG/ACT inhaler INHALE 2 PUFFS BY MOUTH EVERY SIX HOURS NEEDED FOR WHEEZING 8.5 g 2 025 2024 Discontinued(R eorder (will not trigger notification to Pharmacy)) acetaminophen (Tylenol 8 Hour) 650 MG ER tabletIndication s:Primary osteoarthritis of both knees TAKE 1 TO 2 TABLETS BY MOUTH EVERY 12 HOURS NEEDED SWALLOWING WHOLE WITH WATER. 90 tablet 1 025 2024 Discontinued Active [...] pain of both knees 12/08/2022 Chronic bronchitis ([facility]) 10/24/2022 Assessment & Plan (09/24/2023 11:43 AM [...] (08/31/2022 9:40 PM EST): Patient to call [facility] to schedule abd US, a VM had [...] knee 08/22/2022 Coronary artery disease invo lving ambler coronary artery of ambler heart with angina pectoris 08/22/2022 Assessment & [...] Chronic low back pain 06/20/2017 COPD exacerbation ([facility]) 06/20/2017 Assessment & Plan (10/23/2023 2:23 PM [...] Noted Date Diagnosed Date Resolved Date Alcoholism ([facility]) 02/19/2018 025 Stimulant dependence ([facility]) 02/19/2018 12/11/2024 Benzodiazepine dependence, c ontinuous ([facility]) 06/20/2017 12/11/2024 Chronic pulmonary embolism ([facility]) 06/20/2017 12/11/2024 Cocaine dependence in remission ([facility]) 02/21/2017 12/11/2024 Opioid dependence in remission ([facility]) 02/21/2017 12/11/2024 Encounters Date Type Department Care Team Description 06/12/2025 Orders Only GENERIC EXTERNAL DATA DEPARTMENT Provider, Generic External Data 05/28/2025 Refill [facility] [address] [place] [address] Ceci Lezama, JESIKA Primary osteoarthritis of both knees 05/28/2025 Refill [facility] [address] [place] [address] Susie Park MD 05/25/2025 Telephone [facility] [address] [place] [phone] Susie Park MD 05/07/2025 10:40 AM EDT Office Visit [facility] [address] [place] [phone] Carolina Landers MD Cough productive of yellow sputum (Primary Dx) 05/07/2025 Results Follow-Up [facility] [address] [place] [phone] Carolina Landers MD XR Chest 2 Views 05/07/[address] [address] Susie Park MD telephone call; Prior Authorization (CCA PA: [place] ) 05/07/2025 Travel 05/07/[address] [address] Susie Park MD Nurse Triage 05/01/2025 11:00 AM EDT Office Visit [address] [address] Chad Mello MD Psoriasis vulgaris (Primary Dx); LTBI (latent tuberculosis infection) 05/01/2025 Travel 04/29/2025 Refill [facility] [address] [place] [address] Susie Park MD Type 2 diabetes mellitus with other specified complication, with long-term current use of insulin ([facility]) 04/28/2025 Orders Only GENERIC EXTERNAL DATA DEPARTMENT Provider, Generic External Data 04/09/2025 Telephone [facility] [address] [place] [address] Susie Park MD OCT RECALL 04/06/2025 Refill [facility] [address] [place] [address] Susie Park MD 04/01/2025 Refill [facility] [address] [place] [address] TejaCeci, SWEATBAND DRUMMER Primary osteoarthritis of both knees 03/13/2025 Telephone [facility] [address] [place] [address] Susie Park MD 03/12/2025 11:30 AM EDT Office Visit [address] [address] Susie Park MD Psoriasis (Primary Dx); Type 2 diabetes mellitus with other specified complication, with long-term current use of insulin ([facility]); Forgetfulness; Dietary counseling; Exercise counseling 03/12/2025 Telephone [facility] [address] [place] [address] Susie Park MD telephone call 03/12/2025 Travel from Last 3 Months Immunizations Immunization Administration [...] Upcoming Encounters Date Type Department Care Team (Charlie cruz Contact Info) Description 06/18/2025 10:15 AM EDT Office Visit [facility] [address] [place] [address] Susie Park MD [address] [place] [address] Health Maintenance Due Date Last Done Comments [...] 04/23/2012, 2010 Diabetes: Hemoglobin A1C 06/12/2025 025, 03/12/2025, 12/11/2024, Additional history exists Alcohol/Substance Use Screening 07/15/2025 07/15/2024 SDOH Screening 07/15/2025 07/15/2024 Lipid Panel 12/26/2025 12/26/2024, 03/27, 04/14/2024, Additional history exists Depression Screening 03/12/2026 03/12/2025, 03/12/20 Tobacco Screening 05/07/2026 05/07/2025 Colonoscopy 04/12/2027 04/12/2022 [...] HEMOGLOBIN A1C Routine 06/12/2025 10:32 AM EDT XR CHEST 2 VIEWS Routine 05/07/2025 11:5 [...] with long-term current use of insulin ([facility]) POCT GLYCATED HEMOGLOBIN, TOTAL Routine 03/12/2025 11:32 [...] Relevant to Health Maintenance Results * (ABNORMAL) Hemoglobin A1c (06/12/2025 10:32 AM EDT) Hemoglobin A1c 7.0(H) <6.0 % [facility] Comment:Hemoglobin A1C Refer ence Range Adults: 4.8 - 6.0 % Non diabetic: < 6.0 % Goal: < 7.0 %Additional Action Suggested: > 8.0 %Note: Hemoglobin A1c results are invalid for patients with abnormal amounts of HbF. Blood transfusions may impact the HbA1c concentration in the patient sample. Estimated Average Glucose 154 mg/dL [facility] Comment:eAG = Estimated ave rage glucose which is %A1C expressed asaverage glucose, using the formula of the F0J-VviquroXjcoaic Glucose study (ADAG), Diabetes Care, Vol.31,#8,Mar. 2007 06/12/2025 10:3 2 AM EDT 06/12/2025 10:32 AM EDT us Generic External Data Provider LAB BLOOD ORDERAB LES Final Result [facility] [address] [place] [phone] * XR Chest 2 Views (05/07/2025 11:50 AM EDT) Anatomical Region Laterality Modality Chest Radiographic Luba ging 05/07/2025 11:5 0 AM EDT Narrative 05/07/2025 11:49 AM EDT [facility] [address] [place] [address] XRay Report Signed Patient: Elio Calles MR#: [id number] [birth year] : 1955 Acct:[id number] Age/Sex: 70 / M ADM Date: 05/07/25 Loc: LAUR[facility] Attending Dr: Carolina Landers MD Ordering Physician: Carolina Landers MD Date of Service: 05/07/25 Procedure(s): XR chest 2V Accession Number(s): [id number] cc: Carolina Landers MD Reason for Exam: [...] 05/07/25 1146 DD/ 1150 TD/TT: 05/07/25 1139 Tester Operator: Procedure Note Donotuseinterpreter, Image - 05/07/2025 [facility] [address] [place] [address] XRay Report Signed Patient: Elio CallesMR#: [id number] 20 : 5Acct:[id number] Age/Sex: 70 / MADM Date: 05/07/25 Loc: [facility] Attending Dr: Carolina Landers MD Ordering Physician: Carolina Landers MD Date of Service: 05/07/25 Procedure(s): XR chest 2V Accession Number(s): [id number] cc: Carolina Landers MD Reason for Exam: [...] 05/07/25 1146 DD/ 1150 TD/TT: 05/07/25 1139 Tester Operator: Carolina Landers MD IMG XR PROCEDURES Final Re sult * Influenza B (ID NOW Rapid Molecular) (05/07/2025 11:02 AM EDT) Influenza B Negative Negative, Indeterminate [facility] Swab 05/07/2025 11:0 2 AM EDT Carolina Landers MD POINT OF CARE TEST ENTER/E DIT ORDERABLES Final Result Performing Organization Address [facility] Co de Phone Number [facility] [address] [place] [phone] * Influenza A (ID NOW Rapid Molecular) (05/07/2025 11:02 AM EDT) Influenza A Negative Negative, Indeterminate [facility] Swab 05/07/2025 11:0 2 AM EDT Carolina Landers MD POINT OF CARE TEST ENTER/E DIT ORDERABLES Final Result Performing Organization Address [facility] Co de Phone Number [facility] [address] [place] [phone] * POCT Rapid COVID Ag (05/07/2025 11:02 AM EDT) Rapid COVID Ag Negative [facility] Swab 05/07/2025 11:0 2 AM EDT Carolina Landers MD POINT OF CARE TEST ENTER/E DIT ORDERABLES Final Result [facility] [address] [place] [address] [phone] * Cytopath-cell enhanced (04/28/2025 1:06 PM EDT) 04/28/2025 1:06 PM EDT 04/29/2025 9:52 AM EDT Narrative [facility] - 04/29/2025 4:11 PM EDT ----- ------- Name: Elio Calles Age/Sex: 70/M : 1955 Unit#: [id number] Attend Dr: Ana Langley [facility] Re04/28/25 Status: DEP REF Location: .LAB Disch: ----- ------- SPEC : [id number] RECD: 04/29/2552 STATUS: NAMAN SIERRA NUM: [id number] JANI: 04/28/25-[address]: Ana Langley [facility] ENTERED: 04/29/25-1011 SP TYPE: Cytology OTHR DR: Susie Park MD ORDERED: Cyto-enhanced Diagnosis [...] developed and their performance characteristics determined by [facility]. They have not been cleared or approved by the U.S. Food and Drug Administration (FDA). However, the FDA has determined that such clearance or approval is not necessary. This laboratory is certified under the Clinical Laboratory Improvement Amendments of 1988 (CLIA) as qualified to perform high complexity clinical laboratory testing. Copies To: Susie Park MD [address] [address] Ana Langley [facility] [address] [place] [address] [address] [place] [address] CONTINUED ON NEXT PAGE ----- ------- Name: Elio Calles Age/Sex: 70/M : 1955 Unit#: [id number] Attend Dr: Ana Langley [facility] Re04/28/25 Status: DEP REF Location: .LAB Disch: ----- ------- SPEC : [id number] RECD: 04/29/25 STATUS: NAMAN SIERRA NUM: [id number] JANI: 04/28/25 [facility] DR: Ana Langley [facility] ENTERED: 04/29/25101 SP TYPE: Cytology OTHR DR: Susie Park MD ORDERED: Cyto-enhanced Copies To: (Continued) [email or web address] ----- ------- Signed (signature on file) Jessica Blackwell 04/29/25 1611 ----- ------- END OF REPORT us Generic External Data Provider LAB CYTOLOGY AMIRAH CLAY Final Result [facility] [address] [place] [phone] * (ABNORMAL) POCT Glucose (03/12/2025 11:33 AM EDT) Glucose Blood, POC 205(A) 60 - 200 mg/dL Comment:random QC Media Lot # [id number] Lot# Expiration Date Blood Capillary blood specimen / Unknown 03/12/2025 11:33 AM EDT us Susie Cintron MD POINT OF CARE TEST EN TER/EDIT ORDERABLES Final Result * (ABNORMAL) POCT HGB A1C (03/12/2025 11:32 AM EDT) Hemoglobin A1C 7.3(A) 4.0 - 5.7 % QC Media Lot # [id number] Lot# Expiration Date Blood 03/12/2025 11:3 2 AM EDT Susie Cintron MD POINT OF CARE TEST EN TER/EDIT ORDERABLES Final Result * (ABNORMAL) Lipid Panel, Standard (12/26/2024 10:38 AM EDT) Triglycerides 124 <150 mg/dL [facility] Comment:Desirable Triglyceri de: less than 150 mg/dLBorderline High Triglyceride 150-199 mg/dLHigh Triglyceride: 200-499 mg/dLVery High Triglyceride: greater than or equal to 5OO mg/dL Cholesterol 205(H) <200 mg/dL [facility] Comment:Desirable Cholestero l: less than 200 mg/dLBorderline High Cholesterol: 200-239 mg/dLHigh Cholesterol: greater than 239 mg/dL LDL Cholesterol Calculated 138(H) <100 mg/dL [facility] Comment:Desirable LDL: less than 100 mg/dLNear Optimal/Above Optimal LDL: 110- 129 mg/dLBorderline High LDL: 130-159 mg/dLHigh LDL: 160-189 mg/dLVery High LDL: greater than or equal to 190 mg/dL HDL Cholesterol 43 >40 mg/dL [facility] Comment:Desirable HDL: great er than 40 mg/dL Note: This HDL assay may give artificially low results in patients with liver disease. 12/26/2024 10:3 8 AM EDT 12/26/2024 11:08 AM EDT Generic External Data Provider LAB BLOOD ORDERAB LES Final Result Performing Organization Address [facility] Co de Phone Number [facility] [address] [place] [phone] * Hepatitis C Antibody Reflex (03/12/2023 11:45 AM EDT) Hepatitis C Antibody Nonreactive Nonreactive [facility] Comment:Antibodies to HCV no t detected; does not exclude early acuteHCV infection. 03/12/2023 11:4 5 AM EDT 03/12/2023 1:40 PM EDT [facility] External Provider LAB BLO OD ORDERABLES Final Result Performing Organization Address [facility] Co de Phone Number [facility] [address] [place] [phone] * Hm Colonoscopy (04/12/2022 9:53 PM [...] Cintron MD LAB URINE ORDERABLES Final Result [facility] [address] from Last 3 Months or Most Recently Relevant to Health Maintenance Insurance [facility] ASSISTED OPTIONS (HMO D-SNP) [place] [id number] Care Teams Hr Shared Services Consultant Relationship Specialty Start Date End Date Susie Park MD [address] [place] [phone] PCP - General Family Medicine 07/08/18
[2025-06-12 14:33] LABS: Prostate Specific Antigen 0.80 ng/mL (<0.05-4.0)
== END 2025-06-12 09:48 | disposition home or self-care (01) ==
LOC: HO.LAB 09:47
PROVIDERS: PCP Internal Medicine; Visit Provider Nurse Practitioner Family
DX: I10 Essential (primary) hypertension (principal); E11.9 Type 2 diabetes mellitus without complications; Z12.5 Encounter for screening for malignant neoplasm of prostate; R35.1 Nocturia; R89.6 Abnormal cytological findings in specimens from other organs, systems and tissues; R31.29 Other microscopic hematuria
CPT/HCPCS: 36415; 83036; 84153; 88112

== ENCOUNTER 2025-06-17 12:47 | Outpatient (AMB) | payer OTHER, SELFPAY ==
--- NOTE | 2025-06-17 12:50 | A.OFFVIS_ITS ---
Intake Visit Reasons: cysto Intake Note: Patient is present for Cystoscopy Urology Medication:MIRABEGRON Blood Thinner:ASPIRIN labs done 06/12/25: psa .80, hgba1c 7.0 Head And Neck Surgeon Required: No Accompanied by: Self / Same As Patient Allergies Penicillins Allergy (Mild, Verified 06/17/25 12:52) RASH ciprofloxacin (From Cipro) Allergy (Unknown, Verified 06/17/25 12:52) RASH HPI Comments Details: Elio is a pleasant male. He is a patient of Dr. Cintron. He is seen for the following urologic conditions - microscopic hematuria - lower urinary tract symptoms 09/20 Atypical urothelial cells, 11/18 Negative for high-grade urothelial carcinoma. 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 Initiate 90 days trimethoprim Follow-up nurse-practitioner 90 days Microscopic hematuria History of nicotine dependence CT urogram unremarkable Lower urinary tract symptoms that respond to urgency and frequency with Myrbetriq Prior medications include Flomax, terazosin and tolterodine PFSH Medical History Latent tuberculosis Abnormal CT scan, gastrointestinal tract Memory difficulties On anticoagulant therapy On beta russ at home Angina of effort HLD (hyperlipidemia) HTN (hypertension) COPD (chronic obstructive pulmonary disease) Arthritis Diabetes mellitus, type 2 Coronary artery disease Dizziness Peripheral vascular disease Surgical History Hx of colonoscopy S/P cardiac catheterization (~12/2020) S/P cardiac cath (~04/2020) Stented coronary artery S/P cardiac cath (~08/2019) S/P CABG x 3 (~09/2018) H/O coronary artery bypass surgery Social History Household Members: Children Housing: House Alcohol intake: current Alcohol intake frequency: holidays/special occasions only Patient Tobacco Use Status: Current everyday Tobacco user Tobacco use type: Cigarette Cigarette Packs Per Day: 1 Cigarettes Per Day: 8 Advance Directives Date on File: 04/24/22 service: No Current occupational status: disabled Review of Systems Const Denies chills and Denies fever(s) Card Reports no additional complaints and Denies syncope Resp Denies cough GI Denies abdominal pain and Denies heartburn Reports as per HPI and Denies change in libido Neuro Denies syncope Psych Denies change in libido Endo Denies change in libido Physical Exam Const General: cooperative, healthy appearing, comfortable and no acute distress Orientation/consciousness: patient oriented x3 HEENT Face and sinus: Yes normal facial exam Mouth: moist mucous membranes Neck Neck: Yes normal visual inspection, Yes full ROM and Yes trachea midline Chest Chest palpation & inspection: normal inspection of the chest Resp Effort & Inspection: normal respiratory effort, able to speak in complete sentences and no respiratory distress GI Inspection: Yes normal to inspection Back/Spine/Pelvis Cervical Spine: normal cervical lordosis Thoracic/Lumbar Spine: thoracic and lumbar spine normal to inspection Skin General skin exam: no rashes or lesions noted Neuro General: patient oriented x3, gait normal, tone normal and moves all extremities Extrem General: Yes normal to inspection and Yes capillary refill normal Office Procedures Cystoscopy Consent Discussed risk and benefit or proposed procedure with the patient. Information consent for procedure given to the patient. Discussed technical aspects, risks, benefits and alternatives in full. Addressed all of the patient's questions and concerns regarding the procedure. The patient demonstrated knowledge and understanding. They wish to proceed with this procedure. Preparation The patient was prepped in the usual manner. A stations superintendent was present and in the room. Genitalia was prepped with betadine solution in a sterile manner. Lidocaine Jelly 2% was placed into the urethra and 16Fr flexible Olympus cystoscope was inserted into the meatus after adequate lubrication. Procedure Cystoscopy performed using a disposable Urovue digital 16 Romansh cystoscope. Meatus uncircumcised Urethra anterior and posterior urethra normal Prostatic Urethra unremarkable Bladder examination with retroflexion of cystoscope Bladder Orifices normal shape and position Bladder Capacity Normal Trabeculations Grade 0 Cellule Formation None Diverticulum Formation None Mucosal Erythema injected mucosa consistent with some form of baseline cystitis Bladder Tumor None 48251-[id number] DISPOSABLE SCOPE URO-G FLEXIBLE SCOPE Procedure code (CPT) selection complete Office Meds lidocaine HCl 2 % mucosal jelly in applicator Performing Provider: Dhruv Centeno MD Performing Location[facility]ered by: Sanjuanita Marmolejo RN on 06/17/25 13:16 Dose Route Admin Location Dispensed Lot Number Expiration Date [facility] Copy Lathe Tender 10 mL intra-urethral 10 mL nitrofurantoin monohydrate/macrocrystals 100 mg capsule Performing Provider: Dhruv Centeno MD Performing Location: [facility] [place] Administered by: Sanjuanita Marmolejo RN on 06/17/25 13:16 Dose Route Admin Location Dispensed Lot Number Expiration Date NDC Copy Lathe Tender 100 mg PO 1 cap Assessment & Plan Assessment & Plan (1) Cystitis cystica: Code(s): N30.80 - Other cystitis without hematuria Category: Medical Plan Ninety days trimethoprim Orders: Orders AMB Cystoscopy Today R31.29 - Other microscopic hematuria Patient Instructions: This note is constructed using voice recognition software. While every effort has been made to ensure accuracy code enforcement supervisor errors may have been included. Imaging studies, laboratory and physical exam results were discussed and reviewed in detail. No major barriers to patient understanding were identified. An opportunity to ask questions regarding the treatment plan was provided. All questions were answered. The patient expressed understanding and agreement with the above treatment plan. The patient is aware they should contact our office by phone for worsening of their current condition or the appearance of new urologic symptoms. Compliance is encouraged with any medications and followup testing that is ordered. It is a privilege to participate in the urologic care of your patient. If you have any questions or concerns regarding treatment for the above conditions, or other urologic issues, please do not hesitate to contact me. The office telephone contact is [phone]. Sincerely, Dr Dhruv Centeno MD, [facility] - Urology Compassionate Specialist Care for the Genitourinary System Coding Level of Care Code Est Pt Level 4 (22171) Diagnoses Cystitis cystica N30.80 CPT Codes Cystoscopy - CPT: 14449-Apxpfoyvhh ([id number])
--- OUTSIDE RECORDS SUMMARY | 2025-06-17 17:43 | XMS_ITS | Data Portability ---
Author Organization [place] - [facility], Allergy Address 100 [facility] 100 [place] [address] Care Team Providers Care Synoptic Meteorologist Name Role Phone VICTORIANO BHATTI Primary Care [...] more convenient date for formal audiometric testing. [facility] Not available 11/28/2024 12:56:53 01/01/2025 01/01/2025 69yo [...] 0.1 % ear drops,suspe nsion 2024 025 [facility]- , [address] [place], [place], [id number], 5 10:42:25 fluocinolon e acetonide oil 0.01 % ear drops 2023 024 [facility]- , [address] [place], [place], [id number], 4 10:10:57 triamcinolo ne acetonide 0.1 % topical cream 2023 024 [facility]- , [address] [place], [place], [id number], 4 10:11:01 Patient TargetsNo targets recorded. Patient Instructions Encounter Date Encounter Id Patient Instructions Last Modified By Organization Details Last Modified Time 02/15/2024 [id number] Patient presents for cerumen removal. Successfully removed [...] audio gram No observ ation record ed. [email or web address] [facility] [address], [place], [address], 01/09/2025 16:12:20 Result Notes None recorded. Problems Name Problem SNOMED Code Status Onset Date Resolution Date Notes Provider Name and Address Organization Details Recorded Time Impacted cerumen in left ear 44489615252 12861 Active 2020 Impacted cerumen, left ear; Note: Date Diagnosed : 1 7:03 AM (H61.22) Not Available [facility] 4 03:12:13 Chronic right myringiti s 25731798259 47684 Active 2020 Chronic myringiti s, right ear; Note: Date Diagnosed : 1 7:03 AM (H73.11) Not Available [facility] 4 03:12:14 Otorrhea of right ear 45143825872 76763 Active 2020 Otorrhea, right ear; Note: Date Diagnosed : 1 2:49 PM (H92.11) Not Available [facility] 4 03:12:14 Psoriasis 2204328 Active 2021 Psoriasis , unspecifi ed; Note: Date Diagnosed : 10/07/2021 1:51 PM (L40.9) Not Available [facility] 4 03:12:14 Impacted cerumen of bilateral ears 42175987407 07563 Active 2021 Impacted cerumen, bilateral ; Note: Date Diagnosed : 12/16/2021 1:50 PM (H61.23) Not Available [facility] 4 03:12:13 Impacted cerumen in right ear 46170351537 62614 Active 2021 Impacted cerumen, right ear; Note: Date Diagnosed : 01/26/2022 1:41 PM (H61.21) Not Available [facility] 4 03:12:12 Bilateral diffuse otitis externa 25257552671 95811 Active 2022 Diffuse otitis externa, bilateral ; Note: Date Diagnosed : 12/19/2022 9:52 AM (H60.313) Not Available [facility] 4 03:12:13 Diffuse otitis externa 82563572 Active 2022 Diffuse otitis externa, right ear; Note: Date Diagnosed : 1 2:49 PM (H60.311) ; Start Date : 1 Diffuse otitis externa, left ear; Note: Date Diagnosed : 01/09/2023 10:45 AM (H60.312) Not Available [facility] 4 03:12:13 Acute infective otitis externa 486712187 Active 2024 [place] [facility] [place] [place] 5 10:40:43 Sensorine ural hearing loss of bilateral ears 836564569 Active 2024 JC WOODY, AUD [address] [facility],[address], [address] , [facility] - [facility] [place] 5 10:59:47 Problem Notes None recorded. Procedures Surgical History Date Name Laterality Status Provider Name and Address Organization Details Recorded Time 5 Comp Audio with Tymps - 89587 & 35850 completed JC WOODY, AUD [address] [facility],[address] [address], [place], [address], [place] - [facility] 01/01/2025 10:59:40 5 Cerumen removal without microscope bilat completed [place] Miranda [place] - [facility] [place] [place] 09/19/2024 10:51:22 4 Cerumen removal without microscope bilat completed [place] Miranda [place] - [facility] [place] 06/19/2024 10:21:03 Cerumen removal without microscope bilat completed [place] [facility] 02/15/2024 13:26:19 Imaging Results None recorded. [...] mg tablet 06/19 completed Medicati on ID: [id number] B rand Name: acarbose Send Method: E-Prescr [...] mg tablet 06/19 completed Medicati on ID: [id number] B rand Name: tramadol Send Method: E-Prescr ibed Sub s Allowed: subs OK Medic ationGen ericName : tramadol Not Available Not Available Not Available quetiapin e 100 mg tablet 06/19 completed Medicati on ID: [id number] B rand Name: quetiapi ne Send Method: [...] affected area 06/19 completed Medicati on ID: [id number] D uration Value: 30 Brand Name: Mineral [...] a day 06/19 completed Medicati on ID: [id number] D uration Value: 14 Brand Name: hydrocor [...] small amount 06/19 completed Medicati on ID: [id number] D uration Value: 14 Prescri bed By Name: HARIS Pulido nd Name: clotrima zole-bet amethaso ne Send Method: E-Prescr ibed Sub s Allowed: subs OK Speci al Instruct ion: Apply with fingerti p to right external ear twice daily x 2 weeks Me dication GenericN yeison: clotrima zole-bet amethaso ne Not Available Not Available Not Available halobetas ol propionat e 0.05 % topical ointment 06/19 completed Not Available Not Available Not Available Tobrex 0.3 % eye ointment 11/04 completed Medicati on ID: [id number] P rescribe d By Name: HARIS Pulido [...] a day 06/19 completed Medicati on ID: [id number] D uration Value: 14 Brand Name: hydrocor tisone S end Method: E-Prescr ibed Sub s Allowed: subs OK Medic ationGen ericName : hydrocor tisone Not Available Not Available Not Available albuterol sulfate HFA 90 mcg/actua tion aerosol inhaler active Not Available Not Available Not Available hydrocort isone 2.5 % topical ointment Apply a small amount once a day 06/19 completed Medicati on ID: [id number] D uration Value: 14 Brand Name: hydrocor tisone 2.5% Sen d Method: E-Prescr ibed Sub s Allowed: subs OK Speci al Instruct ion: to external ears Med icationG enericNa me: hydrocor tisone 2.5% Med ication ID: [id number] D uration Value: 14 Brand Name: hydrocor [...] topical ointment 11/07 completed Medicati on ID: [id number] P michelleridayron d By Name: HARIS Pulido nd Name: gentamic in Send Method: E-Prescr ibed Sub s Allowed: subs OK Specnatali al Instruct ion: Bring to next appointm ent for applicat ion Medi cationGe nericNam e: gentamic in Not Available Not Available Not Available mometason e 0.1 % topical cream 06/19 completed Medicati on ID: [id number] D uration Value: 10 Prescri bed By Name: HARIS Pulido nd Name: mometaso ne Send Method: E-Prescr ibed Sub s Allowed: subs OK Lizzy al Instruct ion: Apply a small amount to external ear twice a day x 10 days Med icationG enericNa me: mometaso ne Not Available Not Available Not Available One Daily Multivita min tablet active Not Available Not Available Not Available TobraDex 0.3 %-0.1 % eye drops,viet pengeoffon 06/19 completed Medicati on ID: [id number] D uration Value: 14 Brand Name: TobraDex [...] mg tablet 06/19 completed Medicati on ID: [id number] B rand Name: Brilinta Send Method: E-Prescr [...] nasal spray 2020 active Medicati on ID: [id number] B rand Name: Narcan S end Method: [...] Updated DateTime 09/19/2024 167.64 cm 27.9 kg/m2 59706.48 g Mely Thornton [place] [facility] [place] 09/19/2024 10:34:07 Date Recorded Body height Provider Name an d Address Organization Details Last Updated DateTime 11/28/2024 167.64 cm FERDINAND QUINONEZ [place] [facility] 11/28/2024 11:37:12 Date Recorded Body height Body mass index (BMI) Body weight Provider Name and Address Organization Details Last Updated DateTime 01/01/2025 167.64 cm 27.9 kg/m2 12360.48 g Mely Thornton [place] [facility] 01/01/2025 11:09:47 Date Recorded Body height Body mass index (BMI) Body weight Provider Name and Address Organization Details Last Updated DateTime 02/15/2024 167.64 cm 27.9 kg/m2 11275.48 g Kacey Reyes [place] [facility] 02/15/2024 13:06:56 Date Recorded Body height Body mass index (BMI) Body weight Provider Name and Address Organization Details Last Updated DateTime 06/19/2024 167.64 cm 27.9 kg/m2 17383.48 g Alondra Márquez [place] [facility] 06/19/2024 09:32:10 Social History None recorded. Functional Status None recorded. Mental Status None recorded. Family History Nothing Reported. Medical History No medical history recorded. Past Encounters Encounter ID Performer Location Encounter Start Date Encounter Closed Date Diagnosis/Indication Diagnosis SNOMED-CT Code Diagnosis ICD10 Code Diagnosis IMO Codes Diagnosis Note [id number] SANTA MIRANDA PA-C [facility] [address] [place] [address] 02/15/2024 12:43:54 02/15/2024 13:30:17 Impacted cerumen of bilateral ears [id number] 028070 H61.23 [id number] SANTA MIRANDA PA-C [facility] [address] [place] [address] 06/19/2024 09:13:54 06/19/2024 10:12:40 Psoriasis 3649271 L40.9 Impacted c erumen of bilateral ears 7226080071 898766 H61.23 [id number] SANTA MIRANDA PA-C [facility] [address] [place] [address] 09/19/2024 10:27:59 09/19/2024 10:47:34 Acute infective otitis externa 302681241 H60.391 Impacted c erumen of bilateral ears 7862847636 419663 H61.23 [id number] SANTOS ZIEGLER PA-C [facility] 100 [place] [address] 11/28/2024 11:03:05 11/28/2024 11:51:45 Acute infective otitis externa 753984357 H60.391 [id number] SANTOS ZIEGLER PA-C [facility] 100 [place] [address] 01/01/2025 10:26:57 01/01/2025 11:17:27 Sensorineural hearing loss of bilateral ears 187184526 H90.3 [id number] Right Ear:Normal hearing through 6K Hz sloping [...] Ruiz Member ID Guarantor Name 01/01/2025 1 [facility] - DOS ON OR AFTER 2022 - MEDICARE ADVANTAGE [place] (MEDICARE REPLACEMENT/ADV ANTAGE - PPO) Elio Calles [id number] Elio Calles Notes Date Note Type Note Provider Name and Address Organization Details Recorded Time 02/15/2024 text/html ROS as noted in the HPI 68-year-old male presents for evaluation of the ears. Denies change in hearing, otalgia, otorrhea. Using Vaseline and keeping ears dry in the shower, denies Q-tip use. STEPHANIA CUNNINGHAM MD 100 [facility],[address], [address], [facility] 02/15/2024 16:47:54 06/19/2024 text/html ROS as noted in the [facility] 69-year-old male presents for evaluation of the ears. He reports dry flaky skin in the left greater than right ear that he digs out with a fingernail. He has a history of psoriasis that has been flaring up lately he does not see dermatology. He denies otalgia, otorrhea, and change in hearing. DAILY FUNES MD [address] [facility],[address], [address], [facility] 06/19/2024 17:32:09 09/19/2024 text/html ROS as noted in the [facility] 69-year-old male with history of psoriasis presents for evaluation of the ears. He suspects he is impacted with cerumen. He finds that the fluocinolone oil and the Lotrisone cream resolve his itching and flaking. He has not used them for more than 2 weeks in a row at any point. He denies change in hearing, otalgia, and otorrhea. STEPHANIA CUNNINGHAM MD [address] [facility],[address], [address], [facility] 09/19/2024 12:41:03 11/28/2024 text/html ROS as noted in the [facility] 69-year-old male presents following right sided acute otitis externa. He trialed topical Ciprodex, and reports symptoms resolved. Hearing returned to baseline, but he is interested in returning for formal hearing evaluation. TEODORO AMADOR MD [address] [facility],[address], [address], [facility] 11/29/2024 09:22:49 01/01/2025 text/html 69yo male presents for evaluation of hearing loss. This has been gradual for one year. History of recurrent ear infections. Denies ear pain, drainage, tinnitus or dizziness. Denies prior ear surgeries. Current smoker. AKIRA GARCIA MD [address] [place] [address], [place], [address], [facility] - [facility] 01/01/2025 17:23:39
== END 2025-06-17 13:46 | disposition home or self-care (01) ==
LOC: HO.HUSH 12:47
PROVIDERS: PCP Internal Medicine; Visit Provider Urology
DX: R31.29 Other microscopic hematuria (principal); N30.80 Other cystitis without hematuria
CPT/HCPCS: 52000; 99214

== ENCOUNTER → 2025-06-17 12:47 | Outpatient (BNVA) | payer OTHER, SELFPAY | PROVIDERS: PCP Internal Medicine; Visit Provider Urology | DX: N30.81 Other cystitis with hematuria (principal); R31.29 Other microscopic hematuria | CPT/HCPCS: 52000; 81003; 99212 ==

== ENCOUNTER 2025-06-24 12:35 | Outpatient (AMB) | payer OTHER, SELFPAY ==
[2025-06-24 13:08] VITALS: BP 134/77; PULSE 93; O2SAT 98; BMI 26.6
--- NOTE | 2025-06-24 13:08 | MHC.OFFVIS ---
Vital Signs 06/24/25 13:08 Height 5 ft 6 in Weight 165 lb BMI 26.6 BP 134/77 Blood Pressure Location Rt brachial Position Sitting Pulse 93 Pulse Source Pulse Oximeter Pulse Oximetry (%) 98 Oxygen Delivery Method Room Air Intake Visit Reasons: COPD Allergies Penicillins Allergy (Mild, Verified 06/17/25 12:52) RASH ciprofloxacin (From Cipro) Allergy (Unknown, Verified 06/17/25 12:52) RASH HPI HPI COPD: Details: 70-year-old gentleman, active 50+ pack-year smoker, followed for underlying moderate COPD , MARU, and pulmonary nodules.? His follow-up lung cancer screening CT chest scan showed stable pulmonary nodules.? Patient continues on Anoro with good control of his underlying symptoms. He has not been able to use his CPAP over the last 10 day secondary to an upper respiratory infection that was treated by his primary care provider with a course of antibiotics and is getting better at this time. Otherwise, he denies exacerbations. [facility] Medical History (Reviewed 04/28/25 @ 13:15 by Ana Langley [facility]) Latent tuberculosis Abnormal CT scan, gastrointestinal tract Memory difficulties On anticoagulant therapy On beta russ at home Angina of effort HLD (hyperlipidemia) HTN (hypertension) COPD (chronic obstructive pulmonary disease) Arthritis Diabetes mellitus, type 2 Coronary artery disease Dizziness Peripheral vascular disease Surgical History Hx of colonoscopy S/P cardiac catheterization (~12/2020) S/P cardiac cath (~04/2020) Stented coronary artery S/P cardiac cath (~08/2019) S/P CABG x 3 (~09/2018) H/O coronary artery bypass surgery Social History Household Members: Children Housing: House Alcohol intake: current Alcohol intake frequency: holidays/special occasions only Patient Tobacco Use Status: Current everyday Tobacco user Tobacco use type: Cigarette Cigarette Packs Per Day: 1 Cigarettes Per Day: 8 Advance Directives Date on File: 04/24/22 service: No Current occupational status: disabled Review of Systems Const Denies daytime sleepiness, Denies excessive sweating, Denies fatigue, Denies fever(s), Denies lethargy, Denies malaise, Denies night sweats, Denies snoring and Denies weight loss Eyes Denies blurry vision and Denies itchy eyes ENT Denies nasal congestion, Denies post nasal drip, Denies sinus pain, Denies sinus pressure and Denies other ( Thrush) Card Denies chest pain, Denies pedal edema, Denies dyspnea, Denies orthopnea and Denies paroxysmal nocturnal dyspnea Resp Denies cough, Denies hemoptysis, Denies excessive phlegm production, Denies dyspnea, Denies snoring and Denies wheezing GI Denies abdominal pain and Denies heartburn Musc Denies myalgias, Denies arthralgias and Denies joint swelling Skin/Breast Denies rash Neuro Denies memory loss and Denies seizure-like activity Psych Denies abnormal sleep pattern, Denies anxiety and Denies memory loss Endo Denies excessive sweating, Denies fatigue and Denies heat intolerance Prasanth/Lymph Denies easy bruising Aller/Immun Denies itchy eyes, Denies seasonal rhinorrhea and Denies wheezing Physical Exam Vital Signs: Last Vital Signs Pulse 93 06/24/25 13:08 BP 134/77 06/24/25 13:08 Pulse Ox 98 06/24/25 13:08 Oxygen Delivery Method Room Air 06/24/25 13:08 BMI result Body Mass Index 26.6 Const General: no acute distress and alert Nutritional Appearance: not obese Orientation/consciousness: Other orientation findings ( oriented) HEENT Head: Yes atraumatic Eyes General: appearance normal, both eyes and all related structures Sclerae: sclerae normal EOM: EOMs intact bilaterally Neck Neck: Yes supple Lymphatic: no lymphadenopathy noted Resp Effort & Inspection: normal respiratory effort and no use of accessory muscles Auscultation: clear to auscultation bilaterally Cardio Rate: regular rate Rhythm: regular rhythm Heart sounds: no gallops, no murmurs and no rubs Skin General skin exam: other ( warm) Extrem General: No clubbing, No cyanosis and No edema Assessment & Plan Assessment & Plan (1) COPD (chronic obstructive pulmonary disease): Code(s): J44.9 - Chronic obstructive pulmonary disease, unspecified Category: Medical Plan: Well controlled on baseline regimen of Anoro, duo nebs, theophylline, and albuterol MDI. Continue current regimen. (2) MARU on CPAP: Code(s): G47.33 - Obstructive sleep apnea (adult) (pediatric); Z99.89 - Dependence on other enabling machines and devices Category: Medical Plan: Suboptimal compliance with CPAP therapy. Patient has been advised to be more compliant with his CPAP therapy. (3) Personal history of nicotine dependence: Code(s): Z87.891 - Personal history of nicotine dependence Category: Medical Plan: Results of lung cancer screening CT chest from November of 2024 reviewed, no worrisome nodules since that time, continue with yearly screening, next in November of 2025. Coding Level of Care Code Est Pt Level 4 (31334) Complex EM visit Add On G2211 Diagnoses COPD (chronic obstructive pulmonary disease) J44.9 MARU on CPAP G47.33; Z99.89 Personal history of nicotine dependence Z87.891
--- OUTSIDE RECORDS SUMMARY | 2025-06-24 15:53 | XMS_ITS | Encounter Summary ---
Author Organization [employer] Address [address] [facility] 7t [place] [address] Care Team Providers Care Chief Technician X Ray Name Role Phone Susie Park MD Primary Care Provide r Reason for Visit * Reason Comments Med Refill Encounter Details Date Type Department Care Team (Late st Contact Info) Description 01/12/[address] [facility] [address] [place], [place] [phone] Susie Park MD [address] [place] [address] Social History Tobacco Use Types Packs/Day Years [...] Care Team (Late st Contact Info) Description 09/16/2025 9:15 AM EST Office Visit [facility] [address] [place] [address] Susie Park MD [address] [place] [address] documented as of this encounter Visit Diagnoses Not on filedocumented in this encounter Additional Health Concerns Assessment Noted Time PHQ-9 Depression Total Score: 9 04/14/20 24 10:39 AM EDT documented as of this encounter Care Teams Chief Technician X Ray Relationship Specialty Start Date End Date Susie Park MD [address] [place] [phone] PCP - General Family Medicine 07/08/18 documented as of this encounter
--- OUTSIDE RECORDS SUMMARY | 2025-06-24 15:53 | XMS_ITS | Encounter Summary ---
Author Organization [employer] Address [address] [facility] 7t [place] [address] Care Team Providers Care Batch Still Operator Name Role Phone Susie Park MD Primary Care Provide r Reason for Visit * Reason Comments Med Refill Encounter Details Date Type Department Care Team ([facility] st Contact Info) Description 09/20/2023 Refill [facility] [address] [place], [place] [phone] Kacey Edwards MD [address] [place], [place] [phone] Otitis externa of both ears, unspecified chronicity, [...] Description 09/16/2025 9:15 AM EST Office Visit [facility] [address] [place] [address] Susie Park MD [address] [place] [phone] documented as of this encounter Visit Diagnoses Diagnosis Otitis externa of both ears, unspecified chronicity, unspecified type documented in this encounter Additional Health Concerns Assessment Noted Time PHQ-9 Depression Total Score: 8 10/24/19 23 11:22 AM EST documented as of this encounter Care Teams Batch Still Operator Relationship Specialty Start Date End Date Susie Park MD [address] [place] [phone] PCP - General Family Medicine 07/08/18 documented as of this encounter
--- OUTSIDE RECORDS SUMMARY | 2025-06-24 15:53 | XMS_ITS | Encounter Summary ---
Author Organization [employer] Address [address] [facility] [address] 7[address] [place] [address] Care Team Providers Care Valve Inserter Name Role Phone Susie Park MD Primary Care Provide r Reason for Visit * Reason Comments Med Refill Encounter Details Date Type Department Care Team (Late st Contact Info) Description 06/24/2025 Refill [facility] [address] [place], [place] [phone] Susie Park MD [address] [place] [address] Psoriasis; Intrinsic eczema Social History Tobacco Use Types Packs/Day Years [...] Description 09/16/2025 9:15 AM EST Office Visit [facility] [address] [place] [phone] Susie Park MD [address] [place] [address] documented as of this encounter Visit Diagnoses Diagnosis Psoriasis Other psoriasis Intrinsic eczema documented in this encounter Additional Health Concerns Assessment Noted Time PHQ-9 Depression Total Score: 5 03/12/20 25 11:28 AM EDT documented as of this encounter Care Teams Valve Inserter Relationship Specialty Start Date End Date Susie Park MD [address] [place], [place] [phone] PCP - General Family Medicine 07/08/18 documented as of this encounter
--- OUTSIDE RECORDS SUMMARY | 2025-06-24 15:53 | XMS_ITS | Clinical Summary ---
Author Organization [employer] Address [address] 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) TEST BLOOD SUGAR TWICE A DAY 100 each 11 Active calcipotriene (Dovonex) 0.005 % creamIndications :Psoriasis vulgaris Apply topically 2 times daily. 60 g Active acetaminophen (Tylenol 8 Hour) 650 MG ER tabletIndication s:Primary osteoarthritis of both knees TAKE 1 TO 2 TABLETS BY MOUTH EVERY TWELVE HOURS NEEDED 84 tablet 1 Active albuterol 108 (90 Base) MCG/ACT inhaler INHALE 2 PUFFS BY MOUTH EVERY SIX HOURS NEEDED FOR WHEEZING 8.5 g 2 Active cefuroxime (Ceftin) 500 MG tabletIndication s:COPD exacerbation (CMS/HCC) ([facility]) Take 1 tablet (500 mg) by mouth 2 times daily for 7 days. 14 tablet 025 2024 Active albuterol 108 (90 Base) MCG/ACT inhaler [...] WATER. 90 tablet 1 025 2024 Discontinued predniSONE (Deltasone) 20 MG tabletIndication s:COPD exacerbation (CMS/HCC) ([facility]) Take 2 tablets (40 mg) by mouth Once per day for 5 days. 10 tablet 025 2024 Active Problems Problem Noted Date Diagnosed Date [...] pain of both knees 12/08/2022 Chronic bronchitis ([facility]/HCC) 10/24/2022 Assessment & Plan (09/24/2023 11:43 AM [...] (08/31/2022 9:40 PM EST): Patient to call [facility] [place] to schedule abd US, [...] knee 08/22/2022 Coronary artery disease invo lving seminole coronary artery of seminole heart with angina pectoris 08/22/2022 Assessment & [...] Chronic low back pain 06/20/2017 COPD exacerbation ([facility]) 06/20/2017 Assessment & Plan (10/23/2023 2:23 PM [...] Noted Date Diagnosed Date Resolved Date Alcoholism ([facility]) 02/19/2018 025 Stimulant dependence ([facility]) 02/19/2018 12/11/2024 Benzodiazepine dependence, c ontinuous ([facility]) 06/20/2017 12/11/2024 Chronic pulmonary embolism ([facility]) 06/20/2017 12/11/2024 Cocaine dependence in remission ([facility]) 02/21/2017 12/11/2024 Opioid dependence in remission ([facility]) 02/21/2017 12/11/2024 Encounters Date Type Department Care Team Description 06/24/2025 Refill [facility] [address] [place] [address] Susie Park MD Psoriasis; Intrinsic eczema 06/18/2025 10:15 AM EDT Office Visit [address] [address] Susie Park MD Type 2 diabetes mellitus with other specified complication, with long-term current use of insulin ([facility]); COPD exacerbation (CMS/HCC) (HCC) 06/18/2025 Travel 06/17/2025 Telephone [facility] [address] [place] [phone] Susie Park MD Chart Prep 06/12/2025 Orders Only GENERIC EXTERNAL DATA DEPARTMENT Provider, Generic External Data 05/28/2025 Refill [facility] [address] [place] [address] [facility] Primary osteoarthritis of both knees 05/28/2025 Refill [facility] [address] [place] [address] Susie Park MD 05/25/[address] [address] Susie Park MD 05/07/2025 10:40 AM EDT Office Visit [facility] [address] [place] [phone] Carolina Landers MD Cough productive of yellow sputum (Primary Dx) 05/07/2025 Results Follow-Up [facility] [address] [place] [phone] Carolina Landers MD XR Chest 2 Views 05/07/[address] [address] Susie Park MD telephone call; Prior Authorization ([facility]: [place] ) 05/07/2025 Travel 05/07/[address] [address] Susie Park MD Nurse Triage 05/01/2025 11:00 AM EDT Office Visit [facility] [address] [place] [address] Chad Mello MD Psoriasis vulgaris (Primary Dx); LTBI (latent tuberculosis infection) 05/01/2025 Travel 04/29/2025 Refill [facility] [address] [place] [address] Susie Park MD Type 2 diabetes mellitus with other specified complication, with long-term current use of insulin ([facility]) 04/28/2025 Orders Only GENERIC EXTERNAL DATA DEPARTMENT Provider, Generic External Data 04/09/2025 Telephone [facility] [address] [place] [address] Susie Park MD OCT RECALL 04/06/2025 Refill [facility] [address] [place] [address] Susie Park MD 04/01/2025 Refill [facility] [address] [place] [address] [facility] Primary osteoarthritis of both knees from Last [...] Sign Reading Time Taken Comments Blood Pressure 128/82 06/18/2025 10:36 AM EDT Pulse 83 06/18/2025 10:36 AM EDT Temperature 36.2 C (97.2 F) 06/18/2025 10:36 AM EDT Respiratory Rate 15 06/18/2025 10:36 AM EDT Oxygen Saturation 98% 06/18/2025 10:36 AM EDT Inhaled Oxygen Concentration - - Weight 76.5 kg (168 lb 9.6 oz) 06/18/2025 10:36 AM EDT Height 167.6 cm (5' 6 ) 06/18/2025 10:36 AM EDT Body Mass Index 27.21 06/18/2025 10:36 AM EDT Plan of Treatment Upcoming Encounters Date Type Department Care Team (Late st Contact Info) Description 09/16/2025 9:15 AM EST Office Visit [facility] [address] [place] [address] Susie Park MD [address] [place], [place] [phone] Health Maintenance Due Date Last Done Comments CT Colonography 1955 FIT DNA/Cologuard 1955 FIT 1955 FOBT 1955 Sigmoidoscopy 1955 RSV Patients and Patients Aged 60 years or older (1 - Risk 60-74 years 1-dose series) 2015 Diabetes: Urine Protein Screening 09/15/2021 09/15/2020 Zoster Vaccines (2 of 2) 04/16/2023 02/19/2023 Eye Exam 05/15/2023 05/15/2022 Diabetes: Foot Exam 12/09/2023 12/08/2022, Influenza Vaccine (#1) 2025 04/23/2012, 2010 Alcohol/Substance Use Screening 07/15/2025 07/15/2024 SDOH Screening 07/15/2025 07/15/2024 Diabetes: Hemoglobin A1C 09/12/2025 025, 03/12/2025, 12/11/2024, Additional history exists Lipid Panel 12/26/2025 12/26/2024, 03/27, 04/14/2024, Additional history exists Depression Screening 03/12/2026 03/12/2025, 03/12/20 25 Tobacco Screening 06/18/2026 06/18/2025 Colonoscopy 04/12/2027 04/12/2022 Colorectal Cancer Screening 04/12/2027 DTaP/Tdap/Td Vaccines (2 - Td or Tdap) 06/20/2027 06/20/2017, 02/09/2009 Hepatitis A Vaccines Aged Out 12/16/2008, 06/17/20 08 No longer eligible based on patient's age to complete this topic Hepatitis B Vaccines Completed 12/16/2008, 07/22/2008, 06/17/2008 Pneumococcal Vaccine: 50+ Years Completed 12/08/2022, 02/09/2009 Hepatitis C Screening Completed 03/12/2023 COVID-19 Vaccine Completed 05/20/2025, , 10/24/2022, Additional history exists HIB Vaccines Aged Out [...] Date/Time Associated Diagnosis Comments POCT GLUCOSE Routine 06/18/2025 10:37 AM EDT Type 2 diabetes mellitus with other specified complication, with long-term current use of insulin (HCC) PSA, TOTAL Routine 06/12/2025 10:32 AM EDT HEMOGLOBIN A1C Routine 06/12/2025 10:32 AM EDT CYTOPATH-CELL ENHANCED Routine 06/12/2025 10:26 AM EDT XR CHEST 2 VIEWS Routine [...] CYTOPATH-CELL ENHANCED Routine 04/28/2025 1:06 PM EDT LIPID PANEL, STANDARD Routine 12/26/2024 10:38 AM EDT HEPATITIS C ANTIBODY REFLEX Routine 03/12/2023 11:45 AM EDT HM COLONOSCOPY Routine 04/12/2022 9:53 PM EDT ALBUMIN, RANDOM URINE W/CREATININE Routine 09/15/2020 8:43 AM EST from Last 3 Months or Most Recently Relevant to Health Maintenance Results * POCT Glucose (06/18/2025 10:37 AM EDT) Glucose Blood, POC 159 60 - 200 mg/dL QC Media Lot # [id number] Lot# Expiration Date Blood Capillary blood specimen / Unknown 06/18/2025 10:37 AM EDT us Susie Cintron MD POINT OF CARE TEST EN TER/EDIT ORDERABLES Final Result * PSA,Total (06/12/2025 10:32 AM EDT) Prostate Specific Antigen 0.80 <0.05 - 4.0 ng/mL [facility] Comment:PSA methodology: Erlinda Almodovar i ChemiluminescentMicroparticle Immunoassay (CMIA) 06/12/2025 10:3 2 AM EDT 06/12/2025 10:32 AM EDT us Generic External Data Provider LAB BLOOD ORDERAB LES Final Result Performing Organization Address [facility] Co de Phone Number [facility] [address] [place] [phone] * (ABNORMAL) Hemoglobin A1c (06/12/2025 10:32 AM EDT) Hemoglobin A1c 7.0(H) <6.0 % [facility] Comment:Hemoglobin A1C Refer ence Range Adults: 4.8 - 6.0 % Non diabetic: < 6.0 % Goal: < 7.0 %Additional Action Suggested: > 8.0 %Note: Hemoglobin A1c results are invalid for patients with abnormal amounts of HbF. Blood transfusions may impact the HbA1c concentration in the patient sample. Estimated Average Glucose 154 mg/dL [facility] Comment:eAG = Estimated ave rage glucose which is %A1C expressed asaverage glucose, using the formula of the I8O-IxgthlwZxlwjav Glucose study (ADAG), Diabetes Care, Vol.31,#8,Mar. 2007 06/12/2025 10:3 2 AM EDT 06/12/2025 10:32 AM EDT us Generic External Data Provider LAB BLOOD ORDERAB LES Final Result Performing Organization Address [facility] Co de Phone Number [facility] [address] [place] [phone] * Cytopath-cell enhanced (06/12/2025 10:26 AM EDT) Only the most recent of2 resultswithin the time period is included. 06/12/2025 10:2 6 AM EDT 06/12/2025 11:10 AM EDT Narrative [facility] - 06/15/2025 8:29 AM EDT ----- ------- Name: Elio Calles Age/Sex: 70/M : 1955 Unit#: [id number] Attend Dr: Ana Langley [facility]- Re06/12/25 Status: [facility] RE[facility] Disch: ----- ------- SPEC : [id number] RECD: 06/12/25 STATUS: NAMAN SIERRA NUM: [id number] JANI: 06/12/25-[address] [facility] [address]: Ana Langley [facility] ENTERED: 06/12/25 SP TYPE: Cytology OTHR DR: Susie Park MD ORDERED: Cyto-enhanced Diagnosis Urine: Atypical urothelial cells. See comment. COMMENT: Cellular specimen consisting of few atypical urothelial cells, which are small/medium in size, have increased nuclear:cytoplasmic ratio and variable dark chromatin. The background has single urothelial cells with degenerative changes, squamous cells, occasional acute inflammatory cells and red blood cells. Clinical History Microscopic hematuria Abnormal cytological findings in specimens from other organs, systems, and tissues Material Received Urine Gross Description Received is 45 cc of clear yellow fluid from which a ThinPrep slide is prepared. IHC S/NG Disclaimer NOTE: Unless otherwise stated, all tissue is formalin-fixed and paraffin-embedded. Some or all of the immunohistochemical tests reported herein may have been developed and their performance characteristics determined by [facility]. They have not been cleared or approved by the U.S. Food and Drug Administration (FDA). However, the FDA has determined that such clearance or approval is not necessary. This laboratory is certified under the Clinical Laboratory Improvement Amendments of 1988 (CLIA) as qualified to perform high complexity clinical laboratory testing. Copies To: Susie Park MD [address] [address] Ana [facility] [address] [place] [address] [address] [place] [place] [address] CONTINUED ON NEXT PAGE ----- ------- Name: Elio Calles Age/Sex: 70/M : 1955 Unit#: [id number] Attend Dr: Ana Langley [facility] Re06/12/25 Status: [facility] RE[facility] Disch: ----- ------- SPEC : [id number] RECD: 06/12/25 STATUS: NAMAN SIERRA NUM: [id number] JANI: 06/12/[address] [facility] [address]: Ana Langley [facility] ENTERED: 06/12/25 SP TYPE: Cytology OTHR DR: Susie Park MD ORDERED: Cyto-enhanced Copies To: (Continued) [email or web address] ----- ------- Signed (signature on file) Adin Ferguson MD 06/15/25 0829 ----- ------- END OF REPORT us Generic External Data Provider LAB CYTOLOGY AMIRAH CLAY Final Result Performing Organization Address City/State/[facility] Co de Phone Number [facility] [address] [place] [phone] * XR Chest 2 Views (05/07/2025 11:50 AM EDT) Anatomical Region Laterality Modality Chest Radiographic Luba ging 05/07/2025 11:5 0 AM EDT Narrative 05/07/2025 11:49 AM EDT [address] [address] XRay Report Signed Patient: Elio Calles MR#: [id number] 20 : 1955 Acct:[id number] Age/Sex: 70 / M ADM Date: 05/07/25 Loc: HO.HHCX Attending Dr: Carolina Landers MD Ordering Physician: Carolina Landers MD Date of Service: 05/07/25 Procedure(s): XR chest 2V Accession Number(s): [id number] cc: Carolina Landers MD Reason for Exam: [...] 05/07/25 1146 DD/ 1150 TD/TT: 05/07/25 1139 Shellfish Harvester: Procedure Note Donotuseinterpreter, Image - 05/07/[address] [address] XRay Report Signed Patient: Jerome Calles#: [id number] 20 : 5Acct:[id number] Age/Sex: 70 / MADM Date: 05/07/25 Loc: .HHCX Attending Dr: Carolina Landers MD Ordering Physician: Carolina Landers MD Date of Service: 05/07/25 Procedure(s): XR chest 2V Accession Number(s): [id number] cc: Carolina Landers MD Reason for Exam: [...] 05/07/25 1146 DD/ 1150 TD/TT: 05/07/25 1139 Shellfish Harvester: Carolina Landers MD IMG XR PROCEDURES Final Re sult * Influenza B (ID NOW Rapid Molecular) (05/07/2025 11:02 AM EDT) [facility] Influenza B Negative Negative, Indeterminate [facility] Swab 05/07/2025 11:0 2 AM EDT Carolina Landers MD POINT OF CARE TEST ENTER/E DIT ORDERABLES Final Result Performing Organization Address [facility] Co de Phone Number [facility] [address] [place] [phone] * Influenza A (ID NOW Rapid Molecular) (05/07/2025 11:02 AM EDT) [facility] Influenza A Negative Negative, Indeterminate [facility] Swab 05/07/2025 11:0 2 AM EDT Carolina Landers MD POINT OF CARE TEST ENTER/E DIT ORDERABLES Final Result Performing Organization Address [facility] Co de Phone Number [facility] [address] [place] [phone] * POCT Rapid COVID Ag (05/07/2025 11:02 AM EDT) [facility] Rapid COVID Ag Negative [facility] Swab 05/07/2025 11:0 2 AM EDT Carolina Landers MD POINT OF CARE TEST ENTER/E DIT ORDERABLES Final Result Performing Organization Address [facility] de Phone Number [facility] [address] [place] [phone] * (ABNORMAL) Lipid Panel, Standard (12/26/2024 10:38 AM EDT) [facility] Triglycerides 124 <150 mg/dL [facility] Comment:Desirable Triglyceri de: less than 150 mg/dLBorderline High Triglyceride 150-199 mg/dLHigh Triglyceride: 200-499 mg/dLVery High Triglyceride: greater than or equal to 5OO mg/dL Cholesterol 205(H) <200 mg/dL [facility] Comment:Desirable Cholestero l: less than 200 mg/dLBorderline High Cholesterol: 200-239 mg/dLHigh Cholesterol: greater than 239 mg/dL LDL Cholesterol Calculated 138(H) <100 mg/dL [facility] Comment:Desirable LDL: less than 100 mg/dLNear Optimal/Above Optimal LDL: 110- 129 mg/dLBorderline High LDL: 130-159 mg/dLHigh LDL: 160-189 mg/dLVery High LDL: greater than or equal to 190 mg/dL HDL Cholesterol 43 >40 mg/dL [facility] Comment:Desirable HDL: great er than 40 mg/dL Note: This HDL assay may give artificially low results in patients with liver disease. 12/26/2024 10:3 8 AM EDT 12/26/2024 11:08 AM EDT Generic External Data Provider LAB BLOOD ORDERAB LES Final Result Performing Organization Address City/[facility] Co de Phone Number [facility] [address] [place] [phone] * Hepatitis C Antibody Reflex (03/12/2023 11:45 AM EDT) Hepatitis C Antibody Nonreactive Nonreactive [facility] Comment:Antibodies to HCV no t detected; does not exclude early acuteHCV infection. 03/12/2023 11:4 5 AM EDT 03/12/2023 1:40 PM EDT [facility] External Provider LAB BLO OD ORDERABLES Final Result Performing Organization Address [facility] Co de Phone Number [facility] [address] [place] [phone] * Hm Colonoscopy (04/12/2022 9:53 PM EDT) Historical Provider HEALTH MAINTENANCE Final Result * ALBUMIN, RANDOM URINE W/CREATININE (09/15/2020 8:43 AM EST) Microalbumin Urine 2.2 See Note: mg/dL [facility] Comment: Reference Range: Reference Range [...] Result [facility] [address] from Last 3 Months or Most Recently Relevant to Health Maintenance Insurance [facility] OPTIONS (O D-SNP) [place] [id number] Care Teams Roof Mechanic Relationship Specialty Start Date End Date Susie Park MD [address] [place] [address] PCP - General Family Medicine 07/08/18
--- OUTSIDE RECORDS SUMMARY | 2025-06-24 15:53 | XMS_ITS | Data Portability ---
Author Organization [place] - [facility], Allergy Address 100 [facility] 100 [place] [address] Care Team Providers Care Kiln Head House Operator Name Role Phone VICTORIANO BHATTI Primary Care [...] more convenient date for formal audiometric testing. [facility] Not available 11/28/2024 12:56:53 01/01/2025 01/01/2025 69yo [...] 0.1 % ear drops,suspe nsion 2024 025 [facility]- , [address] [place], [place], [id number], 5 10:42:25 fluocinolon e acetonide oil 0.01 % ear drops 2023 024 [facility]- , [address] [place], [place], [id number], 4 10:10:57 triamcinolo ne acetonide 0.1 % topical cream 2023 024 [facility]- , [address] [place], [place], [id number], 4 10:11:01 Patient TargetsNo targets recorded. Patient Instructions Encounter Date Encounter Id Patient Instructions Last Modified By Organization Details Last Modified Time 02/15/2024 1702 Patient presents for cerumen removal. Successfully removed [...] audio gram No observ ation record ed. [email or web address] [facility] [address], [place], [address], 01/09/2025 16:12:20 Result Notes None recorded. Problems Name Problem SNOMED Code Status Onset Date Resolution Date Notes Provider Name and Address Organization Details Recorded Time Impacted cerumen in left ear 10570410552 54939 Active 2020 Impacted cerumen, left ear; Note: Date Diagnosed : 1 7:03 AM (H61.22) Not Available [facility] 4 03:12:13 Chronic right myringiti s 21267446783 49401 Active 2020 Chronic myringiti s, right ear; Note: Date Diagnosed : 1 7:03 AM (H73.11) Not Available [facility] 4 03:12:14 Otorrhea of right ear 47833948665 53356 Active 2020 Otorrhea, right ear; Note: Date Diagnosed : 1 2:49 PM (H92.11) Not Available [facility] 4 03:12:14 Psoriasis 1290809 Active 2021 Psoriasis , unspecifi ed; Note: Date Diagnosed : 10/07/2021 1:51 PM (L40.9) Not Available [facility] 4 03:12:14 Impacted cerumen of bilateral ears 90041512155 11891 Active 2021 Impacted cerumen, bilateral ; Note: Date Diagnosed : 12/16/2021 1:50 PM (H61.23) Not Available [facility] 4 03:12:13 Impacted cerumen in right ear 09748243820 37973 Active 2021 Impacted cerumen, right ear; Note: Date Diagnosed : 01/26/2022 1:41 PM (H61.21) Not Available [facility] 4 03:12:12 Bilateral diffuse otitis externa 62324187333 12891 Active 2022 Diffuse otitis externa, bilateral ; Note: Date Diagnosed : 12/19/2022 9:52 AM (H60.313) Not Available [facility] 4 03:12:13 Diffuse otitis externa 38394398 Active 2022 Diffuse otitis externa, right ear; Note: Date Diagnosed : 1 2:49 PM (H60.311) ; Start Date : 1 Diffuse otitis externa, left ear; Note: Date Diagnosed : 01/09/2023 10:45 AM (H60.312) Not Available [facility] 4 03:12:13 Acute infective otitis externa 966799868 Active 2024 [place] - [facility] 5 10:40:43 Sensorine ural hearing loss of bilateral ears 425918520 Active 2024 JC WOODY, AUD 100 [facility],[address], [address] , [facility] - [facility] 5 10:59:47 Problem Notes None recorded. Procedures Surgical History Date Name Laterality Status Provider Name and Address Organization Details Recorded Time 5 Comp Audio with Tymps - 61438 & 24880 completed JC WOODY, AUD 100 [facility],[place] [address], [place], [address], [place] - [facility] 01/01/2025 10:59:40 5 Cerumen removal without microscope bilat completed [place] - [facility] 09/19/2024 10:51:22 4 Cerumen removal without microscope bilat completed [place] - [facility] 06/19/2024 10:21:03 Cerumen removal without microscope bilat completed [place] [facility] mg tablet 06/19 completed Medicati on ID: [id number] B rand Name: acarbose Send Method: E-Prescr [...] mg tablet 06/19 completed Medicati on ID: [id number] B rand Name: tramadol Send Method: E-Prescr ibed Sub s Allowed: subs OK Medic ationGen ericName : tramadol Not Available Not Available Not Available quetiapin e 100 mg tablet 06/19 completed Medicati on ID: [id number] B rand Name: quetiapi ne Send Method: [...] affected area 06/19 completed Medicati on ID: [id number] D uration Value: 30 Brand Name: Mineral [...] a day 06/19 completed Medicati on ID: [id number] D uration Value: 14 Brand Name: hydrocor [...] small amount 06/19 completed Medicati on ID: [id number] D uration Value: 14 Prescri bed By [...] eye ointment 11/04 completed Medicati on ID: [id number] P rescribe d By Name: HARIS Pulido [...] a day 06/19 completed Medicati on ID: [id number] D uration Value: 14 Brand Name: hydrocor tisone S end Method: E-Prescr ibed Sub s Allowed: subs OK Medic ationGen ericName : hydrocor tisone Not Available Not Available Not Available albuterol sulfate HFA 90 mcg/actua tion aerosol inhaler active Not Available Not Available Not Available hydrocort isone 2.5 % topical ointment Apply a small amount once a day 06/19 completed Medicati on ID: [id number] D uration Value: 14 Brand Name: hydrocor tisone 2.5% Sen d Method: E-Prescr ibed Sub s Allowed: subs OK Speci al Instruct ion: to external ears Med icationG enericNa me: hydrocor tisone 2.5% Med ication ID: [id number] D uration Value: 14 Brand Name: hydrocor [...] topical ointment 11/07 completed Medicati on ID: [id number] P michelleridayron d By Name: HARIS Pulido nd Name: gentamic in Send Method: E-Prescr ibed Sub s Allowed: subs OK Specnatali al Instruct ion: Bring to next appointm ent for applicat ion Medi cationGe nericNam e: gentamic in Not Available Not Available Not Available mometason e 0.1 % topical cream 06/19 completed Medicati on ID: [id number] D uration Value: 10 Prescri bed By [...] drops,viet pengeoffon 06/19 completed Medicati on ID: [id number] D uration Value: 14 Brand Name: TobraDex [...] mg tablet 06/19 completed Medicati on ID: [id number] B rand Name: Brilinta Send Method: E-Prescr [...] nasal spray 2020 active Medicati on ID: [id number] B rand Name: Narcan S end Method: [...] Updated DateTime 09/19/2024 167.64 cm 27.9 kg/m2 81022.48 g Mely Thornton [place] - [facility] 09/19/2024 10:34:07 Date Recorded Body height Provider Name an d Address Organization Details Last Updated DateTime 11/28/2024 167.64 cm FERDINAND QUINONEZ [place] [facility] 11/28/2024 11:37:12 Date Recorded Body height Body mass index (BMI) Body weight Provider Name and Address Organization Details Last Updated DateTime 01/01/2025 167.64 cm 27.9 kg/m2 40444.48 g Mely Thornton [place] [facility] 01/01/2025 11:09:47 Date Recorded Body height Body mass index (BMI) Body weight Provider Name and Address Organization Details Last Updated DateTime 02/15/2024 167.64 cm 27.9 kg/m2 37138.48 g Kacey Reyes [place] [facility] 02/15/2024 13:06:56 Date Recorded Body height Body mass index (BMI) Body weight Provider Name and Address Organization Details Last Updated DateTime 06/19/2024 167.64 cm 27.9 kg/m2 00669.48 g Alondra Márquez [place] [facility] 06/19/2024 09:32:10 Social History None recorded. Functional Status None recorded. Mental Status None recorded. Family History Nothing Reported. Medical History No medical history recorded. Past Encounters Encounter ID Performer Location Encounter Start Date Encounter Closed Date Diagnosis/Indication Diagnosis SNOMED-CT Code Diagnosis ICD10 Code Diagnosis IMO Codes Diagnosis Note [id number] SANTA MIRANDA PA-C [facility] [place] [address] [place] [address] 02/15/2024 12:43:54 02/15/2024 13:30:17 Impacted cerumen of bilateral ears [id number] 968753 H61.23 [id number] SANTA MIRANDA PA-C [facility] [address] [place] [address] 06/19/2024 09:13:54 06/19/2024 10:12:40 Psoriasis 6912970 L40.9 Impacted c erumen of bilateral ears 7554384230 095668 H61.23 [id number] SANTA MIRANDA PA-C [facility] 100 [place] [address] 09/19/2024 10:27:59 09/19/2024 10:47:34 Acute infective otitis externa 395511244 H60.391 Impacted c erumen of bilateral ears 7153504486 617601 H61.23 [id number] SANTOS ZIEGLER PA-C [facility] 100 [facility] [place] [address] 11/28/2024 11:03:05 11/28/2024 11:51:45 Acute infective otitis externa 149140942 H60.391 [id number] SANTOS ZIEGLER PA-C [facility] 100 [facility] [place] [address] 01/01/2025 10:26:57 01/01/2025 11:17:27 Sensorineural hearing loss of bilateral ears 375597361 H90.3 [id number] Right Ear:Normal hearing through 6K Hz sloping [...] Ruiz Member ID Guarantor Name 01/01/2025 1 [facility] - DOS ON OR AFTER 2022 - MEDICARE ADVANTAGE [place] (MEDICARE REPLACEMENT/ADV ANTAGE - PPO) Elio Calles [id number] Elio Calles Notes Date Note Type Note Provider Name and Address Organization Details Recorded Time 02/15/2024 text/html ROS as noted in the HPI 68-year-old male presents for evaluation of the ears. Denies change in hearing, otalgia, otorrhea. Using Vaseline and keeping ears dry in the shower, denies Q-tip use. STEPHANIA CUNNINGHAM MD 100 [facility],[address], [address], [facility] 02/15/2024 16:47:54 06/19/2024 text/html ROS as noted in the [facility] 69-year-old male presents for evaluation of the ears. He reports dry flaky skin in the left greater than right ear that he digs out with a fingernail. He has a history of psoriasis that has been flaring up lately he does not see dermatology. He denies otalgia, otorrhea, and change in hearing. DAILY FUNES MD 100 [facility],[address], [address], [facility] 06/19/2024 17:32:09 09/19/2024 text/html ROS as noted in the [facility] 69-year-old male with history of psoriasis presents for evaluation of the ears. He suspects he is impacted with cerumen. He finds that the fluocinolone oil and the Lotrisone cream resolve his itching and flaking. He has not used them for more than 2 weeks in a row at any point. He denies change in hearing, otalgia, and otorrhea. STEPHANIA CUNNINGHAM MD 100 [facility],[address], [address], [facility] 09/19/2024 12:41:03 11/28/2024 text/html ROS as noted in the [facility] 69-year-old male presents following right sided acute otitis externa. He trialed topical Ciprodex, and reports symptoms resolved. Hearing returned to baseline, but he is interested in returning for formal hearing evaluation. TEODORO AMADOR MD 100 [facility],[address], [address], [facility] 11/29/2024 09:22:49 01/01/2025 text/html 69yo male presents for evaluation of hearing loss. This has been gradual for one year. History of recurrent ear infections. Denies ear pain, drainage, tinnitus or dizziness. Denies prior ear surgeries. Current smoker. AKIRA GARCIA MD [address] [place] [address], [place], [address], [facility] - [facility] 01/01/2025 17:23:39
--- OUTSIDE RECORDS SUMMARY | 2025-06-24 15:53 | XMS_ITS | Encounter Summary ---
Author Organization [employer] Address 75 [facility] 7t [place] [address] Care Team Providers Care Shipping Agent Name Role Phone Susie Park MD Primary Care Provide r Reason for Visit * Reason Onset Date Comments Nurse Triage 10/18/2023 Encounter Details Date Type Department Care Team ([facility] st Contact Info) Description 10/18/2023 Telephone [facility] MEDICINE [address] [place], [place] [phone] Susie Park MD 230 [place], [place] [phone] Nurse Triage Social History Tobacco Use Types [...] and daughter advised of disposition, agree to [facility] now for exam due to CP [...] Description 09/16/2025 9:15 AM EST Office Visit [facility] MEDICINE [address] [place] [address] Susie Park MD [address] [place] [address] documented as of this encounter Visit Diagnoses Not on filedocumented in this encounter Additional Health Concerns Assessment Noted Time PHQ-9 Depression Total Score: 8 10/24/19 23 11:22 AM EST documented as of this encounter Care Teams Shipping Agent Relationship Specialty Start Date End Date Susie Park MD [address] [place] [phone] PCP - General Family Medicine 07/08/18 documented as of this encounter
--- OUTSIDE RECORDS SUMMARY | 2025-06-24 15:53 | XMS_ITS | Encounter Summary ---
Author Organization [employer] Address 75 [facility] [address] 7t [place] [address] Care Team Providers Care Cellular Tower Climber Name Role Phone Susie Park MD Primary Care Provide r Encounter Details Date Type Department Care Team ([facility] st Contact Info) Description 09/03/2023 Orders Only [facility] MEDICINE 230 [place], [place] [phone] Susie Park MD 230 [place], [place] [phone] Social History Tobacco Use Types Packs/Day Years [...] Description 09/16/2025 9:15 AM EST Office Visit [facility] MEDICINE [address] [place] [phone] Susie Park MD [address] [place] [address] documented as of this encounter Visit Diagnoses Not on filedocumented in this encounter Additional Health Concerns Assessment Noted Time PHQ-9 Depression Total Score: 8 10/24/19 23 11:22 AM EST documented as of this encounter Care Teams Cellular Tower Climber Relationship Specialty Start Date End Date Susie Park MD [address] [place] [phone] PCP - General Family Medicine 07/08/18 documented as of this encounter
--- OUTSIDE RECORDS SUMMARY | 2025-06-24 15:53 | XMS_ITS | Encounter Summary ---
Author Organization [employer] Address 75 [facility] 7t [place] [address] Care Team Providers Care Tearoom Host/Hostess Name Role Phone Susie Park MD Primary Care Provide r Reason for Visit * Reason Comments Med Refill Encounter Details Date Type Department Care Team ([facility] st Contact Info) Description 09/26/2023 Refill [facility] MEDICINE 230 [place], [place] [phone] Susie Park MD 230 [place], [place] [phone] Coronary artery disease involving [place] coronary artery of [place] heart with angina pectoris (CMS/HCC) Social History [...] Description 09/16/2025 9:15 AM EST Office Visit [facility] MEDICINE [address] [place] [address] Susie Park MD [address] [place] [address] documented as of this encounter Visit Diagnoses Diagnosis Coronary artery disease involving [place] coronary artery of [place] heart with angina pectoris documented in this encounter Additional Health Concerns Assessment Noted Time PHQ-9 Depression Total Score: 8 10/24/19 23 11:22 AM EST documented as of this encounter Care Teams Tearoom Host/Hostess Relationship Specialty Start Date End Date Susie Park MD [address] [place] [address] PCP - General Family Medicine 07/08/18 documented as of this encounter
--- OUTSIDE RECORDS SUMMARY | 2025-06-24 15:53 | XMS_ITS | Encounter Summary ---
Author Organization [employer] Address 75 [facility] 7t [place] [address] Care Team Providers Care Data Acquisition Technician Name Role Phone Susie Park MD Primary Care Provide r Reason for Visit * Reason Comments Med Refill Encounter Details Date Type Department Care Team (Late st Contact Info) Description 09/17/2024 Refill [facility] MED & PEDS [address] [place], [place] [phone] Susie Park MD 230 [place] [address] Social History Tobacco Use Types Packs/Day Years [...] Description 09/16/2025 9:15 AM EST Office Visit [facility] MEDICINE [address] [place] [phone] Susie Park MD 230 [place] [address] documented as of this encounter Visit Diagnoses Not on filedocumented in this encounter Additional Health Concerns Assessment Noted Time PHQ-9 Depression Total Score: 9 04/14/20 24 10:39 AM EDT documented as of this encounter Care Teams Data Acquisition Technician Relationship Specialty Start Date End Date Susie Park MD [address] [place] [address] [phone] PCP - General Family Medicine 07/08/18 documented as of this encounter
--- OUTSIDE RECORDS SUMMARY | 2025-06-24 15:53 | XMS_ITS | Encounter Summary ---
Author Organization [email or web address] Address 75 [facility] 7t [place] [address] Care Team Providers Care Noteman Name Role Phone Susie Park MD Primary Care Provide r Encounter Details Date Type Department Care Team ([facility] Contact Info) Description 08/30/2022 Abstract [facility] MEDICINE [address] [place] [address] [phone] Susie Park MD [address] [place] [address] [phone] Social History Tobacco Use Types Packs/Day Years [...] Upcoming Encounters Date Type Department Care Team ([facility] Contact Info) Description 09/16/2025 9:15 AM EST Office Visit [facility] MEDICINE [address] [place] [phone] Susie Park MD 230 [place], [place] [phone] documented as of this encounter Visit Diagnoses Not on filedocumented in this encounter Additional Health Concerns Assessment Noted Time PHQ-9 Depression Total Score: 17 022 9:43 AM EST documented as of this encounter Care Teams Noteman Relationship Specialty Start Date End Date Susie Park MD 230 [place] [address] PCP - General Family Medicine 07/08/18 documented as of this encounter
--- OUTSIDE RECORDS SUMMARY | 2025-06-24 15:53 | XMS_ITS | Encounter Summary ---
Author Organization [employer] Address 75 [facility] 7t [place] [address] Care Team Providers Care Site Head Name Role Phone Susie Park MD Primary Care Provide r Reason for Visit * Reason Comments Med Refill Encounter Details Date Type Department Care Team (Late st Contact Info) Description 08/19/2024 Refill [facility] CHC MED & PEDS [address] [place], [place] [phone] Susie Park MD 230 [place] [address] Social History Tobacco Use Types Packs/Day Years [...] Description 09/16/2025 9:15 AM EST Office Visit [facility] MEDICINE [address] [place] [address] Susie Park MD [address] [place] [address] documented as of this encounter Visit Diagnoses Not on filedocumented in this encounter Additional Health Concerns Assessment Noted Time PHQ-9 Depression Total Score: 9 04/14/20 24 10:39 AM EDT documented as of this encounter Care Teams Site Head Relationship Specialty Start Date End Date Susie Park MD [address] [place] [phone] PCP - General Family Medicine 07/08/18 documented as of this encounter
--- OUTSIDE RECORDS SUMMARY | 2025-06-24 15:53 | XMS_ITS | Encounter Summary ---
Author Organization [employer] Address 75 [facility] 7t [place] [address] Care Team Providers Care Financial Administrator Name Role Phone Susie Park MD Primary Care Provide r Reason for Visit * Reason Comments Med Refill Encounter Details Date Type Department Care Team (Late st Contact Info) Description 01/08/2025 Refill [facility] CHC MED & PEDS [address] [place], [place] [phone] Susie Park MD 230 [place] [address] Social History Tobacco Use Types Packs/Day Years [...] Description 09/16/2025 9:15 AM EST Office Visit [facility] MEDICINE [address] [place] [phone] Susie Park MD 230 [place] [address] documented as of this encounter Visit Diagnoses Not on filedocumented in this encounter Additional Health Concerns Assessment Noted Time PHQ-9 Depression Total Score: 9 04/14/20 24 10:39 AM EDT documented as of this encounter Care Teams Financial Administrator Relationship Specialty Start Date End Date Susie Park MD [address] [place] [address] [phone] PCP - General Family Medicine 07/08/18 documented as of this encounter
--- OUTSIDE RECORDS SUMMARY | 2025-06-24 15:53 | XMS_ITS | Encounter Summary ---
Author Organization [employer] Address 75 [facility] 7t [place] [address] Care Team Providers Care Set Staff Fitter Name Role Phone Susie Park MD Primary Care Provide r Reason for Visit * Reason Comments Med Refill Encounter Details Date Type Department Care Team (Late st Contact Info) Description 10/15/2024 Refill [facility] CHC MED & PEDS [address] [place], [place] [phone] Susie Park MD [address] [place] [address] Social History Tobacco Use Types Packs/Day Years [...] 9:15 AM EST Office Visit [facility] MEDICINE [address] [place] [phone] Susie Park MD [address] [place] [address] documented as of this encounter Visit Diagnoses Not on filedocumented in this encounter Additional Health Concerns Assessment Noted Time PHQ-9 Depression Total Score: 9 04/14/20 24 10:39 AM EDT documented as of this encounter Care Teams Set Staff Fitter Relationship Specialty Start Date End Date Susie Park MD [address] [place] [address] [phone] PCP - General Family Medicine 07/08/18 documented as of this encounter
--- OUTSIDE RECORDS SUMMARY | 2025-06-24 15:53 | XMS_ITS | Encounter Summary ---
Author Organization [employer] Address 75 [facility] 7t [place] [address] Care Team Providers Care Lime Slaker Name Role Phone Susie Park MD Primary Care Provide r Encounter Details Date Type Department Care Team (Late Contact Info) Description 03/07/2023 Orders Only [facility] MEDICINE [address] [place] [phone] Jodie Mejia MD 230 [place] [address] Psoriasis (Primary Dx) Social History Tobacco Use [...] Upcoming Encounters Date Type Department Care Team ([facility] Contact Info) Description 09/16/2025 9:15 AM EST Office Visit [facility] MEDICINE 230 [place] [address] Susie Park MD 230 [place] [address] Scheduled Orders Name Type Priority Associated Diagnoses [...] documented as of this encounter Care Teams Lime Slaker Relationship Specialty Start Date End Date Susie Park MD [address] [place] [phone] PCP - General Family Medicine 07/08/18 documented as of this encounter
== END 2025-06-24 13:27 | disposition home or self-care (01) ==
LOC: HO.HPS 12:35
PROVIDERS: PCP Internal Medicine; Visit Provider Internal Medicine Pulmonary Disease
DX: J44.9 Chronic obstructive pulmonary disease, unspecified (principal); G47.33 Obstructive sleep apnea (adult) (pediatric); Z99.89 Dependence on other enabling machines and devices; Z87.891 Personal history of nicotine dependence
CPT/HCPCS: 99214; G2211

== ENCOUNTER → 2025-06-24 12:35 | Outpatient (BNVA) | payer OTHER, SELFPAY | PROVIDERS: PCP Internal Medicine; Visit Provider Internal Medicine Pulmonary Disease | DX: J44.9 Chronic obstructive pulmonary disease, unspecified (principal); G47.33 Obstructive sleep apnea (adult) (pediatric); R91.8 Other nonspecific abnormal finding of lung field; F17.210 Nicotine dependence, cigarettes, uncomplicated; Z99.89 Dependence on other enabling machines and devices; Z91.199 Patient's noncompliance with other medical treatment and regimen due to unspecified reason | CPT/HCPCS: 99212 ==